=== PATIENT | female | born 1945 | race Caucasian/White ===

== ENCOUNTER 2017-11-26 12:41 | Inpatient (IN) | payer MEDICARE, OTHER, SELFPAY ==
[2017-11-26] VITALS (13 sets, daily range): BP systolic 79–124; BP diastolic 48–60; PULSE 64–82; RESP 14–20; TEMP 36.3–36.9; O2SAT 91–95; BMI 20.9; BMI 19.3
--- NOTE | 2017-11-26 12:52 | EKG12_ITS ---
Test Reason : SOB Blood Pressure : / mmHG Vent. Rate : 077 BPM Atrial Rate : 077 BPM P-R Int : 118 ms QRS Dur : 080 ms QT Int : 364 ms P-R-T Axes : 080 029 085 degrees QTc Int : 411 ms Normal sinus rhythm Right atrial enlargement Borderline ECG Confirmed by DECLAN CEJA, GERBER ([id number]), mapping editor GABRIELLA IRAHETA ([id number] on 11/29/2017 11:21:30 AM Referred By: NATE Confirmed By:GERBER MANRIQUEZ MD
--- NOTE | 2017-11-26 12:52 | RAD_ITS ---
STUDY: X-RAY CHEST REASON FOR EXAM: Female, 72 years old. Cough. One week history of worsening shortness of breath. TECHNIQUE: PA and lateral views of the chest. COMPARISON: Comparison is made with prior study dated February 26, 2010. FINDINGS: EKG electrodes are seen. Since prior study, there is evidence of increased interstitial markings in both lungs. Blunting of both costophrenic angles posteriorly. This may represent superimposed mild CHF on COPD. Normal size heart. Normal mediastinum and marco antonio. Normal visualized pulmonary arteries. There is atherosclerotic calcification of the aortic arch with tortuosity. There are degenerative changes of the visualized thoracic spine. Normal visualized ribs, clavicles, and shoulders. There is evidence of fusion in the lower cervical spine. There is no demonstrated abnormality of the visualized soft tissue structures of the upper abdomen. RAD/Chest PA and Lateral IMPRESSION: Hyperinflation. Increased interstitial markings suggestive of mild degree of CHF. Electronically Signed: Valentin Flores MD at 13:52 EST Tel [phone], Service support ,
[2017-11-26] MEDS: Ipratropium/Albuterol Sulfate 3 ML AMPUL.NEB INHALATION ×2 (12:56→20:16)
[2017-11-26] MEDS: MethylPREDNISolone 125 MG/2 ML Vial IV (13:02)
[2017-11-26 13:21] LABS: Absolute Lymphocyte Count 0.29 X10^3/ul (0.83-4.51); Absolute Neutrophil Count 14.2 X10^3/uL (2.0-7.7); Basophil# 0.01 X10^3/uL; Basophil% 0.1 % (0-1); Eosinophil# 0.01 X10^3/uL; Eosinophils% 0.1 % (0-5); Hematocrit 43.5 % (37-47); Hemoglobin 14.3 g/dl (12.0-15.0); Lymphocyte # 0.29 X10^3/ul (4.0); Mean Corp Hgb Conc 32.9 g/gl (32-36); Mean Corpuscular Hgb 31.2 pg (27.0-32.0); Mean Corpuscular Volume 94.8 fL (81-99); Mean Platelet Vol. 9.7 fl (6.2-12.0); Monocyte# 0.21 X10^3/uL; Monocyte% 1.4 % (0-10); Neutrophil # 14.24 X10^3/uL (2.7-7.7); Neutrophil % 96.1 % (47-70); Platelet Count 319 K/mm3 (150-450); RBC Distribution Width CV 13.8 % (11.6-14.6); RBC Distribution Width SD 46.3 fl (35.1-43.9); Red Blood Count 4.59 M/mm3 (4.2-5.4); White Blood Count 14.8 K/mm3 (4.4-11.0)
[2017-11-26 13:26] LABS: Differential Indicated SCAN CRITERIA MET; POSITIVE COUNT NO; POSITIVE DIFFERENTIAL YES; POSITIVE MORPHOLOGY YES
[2017-11-26 13:29] LABS: Anion Gap 16 (5-15); BUN 27 mg/dL (7-18); BUN/Creat Ratio 20.3 RATIO (10-20); Calcium,Total 8.7 mg/dL (8.5-10.1); Chloride 94 mmol/L (98-107); Creatinine, Serum 1.33 mg/dL (0.55-1.02); EST Glomerular Filtration Rate 42 mL/min (>60); Est Glom Filt Rate - Afr Amer 51 mL/min (>60); Estimated Creatinine Clearance 36.01 ml/min; Glucose 45 mg/dL (70-110); Potassium 3.8 mmol/L (3.5-5.1); Sodium Level 131 mmol/L (136-145)
[2017-11-26 13:46] LABS: Lactic Acid 1.5 mmol/L (0.4-2.0)
[2017-11-26 13:55] LABS: Platelet Estimate ADEQUATE (ADEQ); Platelet Morphology LARGE
[2017-11-26 15:15] LABS: BNP,B-Type NATRIURETIC PEPTIDE 38.3 pg/mL (0-100)
--- NOTE | 2017-11-26 15:56 | ED.DCSUM_ITS ---
- ER Visit Summary Date of Service: 11/26/17 Chief Complaint: Shortness of breath History of Present Illness: The patient is a [address] Peace and Dr. Soto. She reports that she has shortness of breath began 3 days ago and is gradually gotten worse. It is moderate currently and severe at worst. It is worsened by exertion or coughing. She taken albuterol with temporary relief. She is not on oxygen at home. Patient reports that she has had a cough productive of yellow sputum for the past 3 days as well. She denies any fever. She has had chills. She denies any chest pain. She does complain of generalized weakness. Physical Examination: Vitals: Stable. Afebrile. General: Well-nourished and well-developed. Head: Normocephalic atraumatic. Neck: Supple, no lymphadenopathy. No JVD. Nontender. Cardiovascular: Regular rate and rhythm. No murmurs. Respiratory: Mild respiratory distress with mild wheezing bilaterally. Greatly decreased air movement.. Abdominal: Soft, nontender, nondistended, normal bowel sounds. No guarding, rebound, or peritoneal signs. Back: Nontender. Extremities: Nontender, no edema. Skin: Normal color, no rash. Neurologic: Alert and oriented ?3. Cranial nerves II through XII are intact. Normal strength and sensation. Psych: Normal affect. Test Results: EKG is sinus at 77 with no acute changes. Troponin is negative. 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 Lactic acid is 1.5. Chem-7 is marked for sodium 131, chloride 94, BUN 27, creatinine 1.33, and glucose 45. CBC is marked for white count of 14.8 with 96 segmented neutrophils and 2 lymphocytes. Influenza is negative. Chest x-ray shows increased interstitial markings which I feel is likely due to pulmonary fibrosis. It is significantly changed since 2012. Emergency Department Course and Treatment: Was given albuterol Atrovent aerosols. She is given Solu-Medrol IV and placed on oxygen. She feels much improved. However, pulse ox decreased to 86% with ambulation. Treatment Plan: Patient was discussed with Dr. Ambriz. She will be admitted to the hospital for further evaluation and treatment. Disposition: Admitted in improved condition. Impression: 1. COPD exacerbation. 2. Hypoxia. This note was generated with Dragon dictation software. It may contain incorrect words, spelling, and punctuation that were not noted in review of the chart prior to signing ED Disposition - Plan for ED Patient: Chief Complaint: Shortness of Breath Referrals: Matt Peace MD [Primary Care Provider] -
--- NOTE | 2017-11-26 16:16 | PCM.HP.STD ---
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 She was treated as an outpatient with levaquin and steroids which she completed yesterday however became more SOB yesterday. She has been sick with URI like symptoms mostly runny nose and cough with green mucus production no hemoptysis for several days. In the ER she was SOB and hypoxic with ambulation with pulse ox of 86% with only a few steps and initially hypotensive. She has had some diarrhea that started today, no nausea or vomiting. She also has muscle aches and weakness. Denies dysuria. No fever or chills. She does not use O2 at home and is currently not on O2 at rest and comfortable. [] Past Medical History Allergies Sulfa (Sulfonamide Antibiotics) Allergy (Verified 11/26/17 13:07) Unknown Home Medications: Ambulatory Orders Medication Instructions Recorded Albuterol Sulfate [Ventolin Hfa] 1 - 2 puff INHALATION Q4H PRN 11/26/17 Atorvastatin Calcium [Lipitor] 10 mg PO QHS 11/26/17 Diclofenac [Voltaren] 75 mg PO BIDCM 11/26/17 Fluticasone/Vilanterol [Breo 1 each IH DAILY 11/26/17 Ellipta 200-25 Mcg INH] Gabapentin [Neurontin] 600 mg PO QHS 11/26/17 Trazodone HCl 50 mg PO QHS 11/26/17 Umeclidinium [place] [Incruse 1 each IH DAILY 11/26/17 Ellipta] Surgical History: cholecystectomy, hysterectomy, - - spinal surgery Psychiatric History: No pertinent psych hx 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 Denies: Chills, Fever, Weight Change Eyes: Denies: Blurred vision, Double vision, Vision Change HEENT: Reports: Nasal Congestion. Denies: Difficulty Hearing, Difficulty Swallowing, Hard of Hearing, Head Aches, Hearing Changes, Sinus Drainage, Sore Throat, Visual Changes Cardiovascular: Denies: Chest Pain, Chest Pressure, Chest Tightness, Edema, Heaviness, Light Headedness, Palpitations, Syncope Respiratory: Reports: Cough, Shortness of Breath, Shortness of breath at rest, Shortness of breath upon exertion, Sputum production, Wheezing. Denies: Hemoptysis, Pleuritic Pain Gastrointestinal: Reports: Diarrhea. Denies: Abdominal Pain, Nausea, Vomiting Genitourinary: Denies: Dysuria Musculoskeletal: Denies: Joint Pain, Joint Tenderness Skin: Denies: Rash, Wounds Neurological: Denies: Balance problems, Blurred vision, Double vision, Change in Speech, Slurred speech, Confusion, Difficulty swallowing, Focal weakness, Headaches, Incoordination, Numbness, Tingling Psychiatric: Denies: Anxiety, Depression, Homicidal Ideations, Suicidal Ideations Hematologic/ Lymphatic: Denies: Easy Bruising, Easy Bleeding VTE Information - Inpt Only VTE Present on Admission: No VTE Mechan Device Prophylaxis: SCD's VTE Pharm Prophylaxis ordered?: Yes Patient Problems: Active and Suspected Problems COPD exacerbation (Acute) HLD (hyperlipidemia) (Acute) Neurogenic bladder (Acute) Neurogenic bowel (Acute) Hypoxia (Acute) Acute diarrhea (Acute) - Physical Exam General: Alert, Oriented x3, Cooperative HEENT: Atraumatic, PERRLA, EOMI, Normocephalic Neck: Supple, No JVD, Negative Carotid Bruits Lungs: Diminished, Wheezes - faint end expiratory wheeze on forced expiration Cardiovascular: Regular rate, No murmurs Abdomen: Bowel Sounds Present, Soft, Non Tender Extremities: No edema, Capillary Refill Less than 3 Seconds Skin: No rashes, No breakdown Musculoskeletal: No Tenderness to Palpation of Joints or Extremities Neurological: Cranial nerves II-XII grossly intact Psych/Mental Status: Normal Affect, Appropriate, Alert and oriented to time, place, person, mood and affect Vital Signs Temp Pulse Resp BP Pulse Ox 97.5 F L 78 14 124/52 H 94 01/29/18 12:43 11/26/17 16:02 11/26/17 16:02 11/26/17 15:00 11/26/17 16:02 Oxygen Flow Rate 2 Oxygen Delivery Method Nasal Cannula Assessment/Plan Active and Suspected Problems COPD exacerbation (Acute) HLD (hyperlipidemia) (Acute) Neurogenic bladder (Acute) Neurogenic bowel (Acute) Hypoxia (Acute) Acute diarrhea (Acute) 1. Acute COPD exacerbation 2/2 suspected acute viral syndrome - Pt has hx of COPD and presents with dyspnea worse with exertion and exertional hypoxia having recently completed steroids and levaquin as an outpatient with viral like symptoms including nasal congestion, cough with green mucus production, wheezing, myalgias, and diarrhea. Also on GABRIELA, LABA, nebulizer, and ICS maintenance therapy. Influenza screen is negative. CXR with hyperexpansion and markings suggesting mild CHF - doubt she has CHF as she has no overt signs of fluid overload and a negative BNP. Lungs have faint end expiratory wheezing. Will begin solumedrol, duonebs, incentive spirometer, robitussin w/ mucinex, check viral panel, and start IV azithromycin. Will check sputum culture as well. She was hypotensive on presentation but this improved with IV fluid administration and lactate was negative. Also troponin neg. EKG with enlarged atrium. Blood cx drawn in ER pending. She is a [facility] pulmonary pt - Dr. Crabtree. 2. Acute hypoxia - with exertion only, stable at rest off O2. Will need walking pulse ox prior to DC 3. Hypotension resolved with IV fluids 4. Elevated Creatinine - baseline unknown - will continue IV NS and trend. Hold voltaren. 5. Neurogenic bowel and bladder 2/2 prior spinal surgery. Continue neurontin. 6. Leukocytosis - likely 2/2 being on outpatient steroids until yesterday. 7. Mild hyponatremia - unclear etiology. DVT ppx: heparin/SCDs DC planning: may need homegoing O2 This patient was seen by Neymar Crockett PA-C under the supervision of Doctor Pb. <Vijay Ambriz - Last Filed: 11/26/17 18:15> Problem List (1) Acute diarrhea Status: Acute History of Present Illness Seen and examined Patient came to ER with severe shortness of breath, pulse ox 86% on room air and wheezing. She completed 7 days of Levaquin and prednisone by her awning craftsman. Currently she complained of diarrhea, liquidy stool but no blood. No vomiting/abdominal cramps. Past Medical History Allergies Sulfa (Sulfonamide Antibiotics) Allergy (Verified 11/26/17 17:47) FACE GETS RED AND ITCHY - *Family History Maternal History Items: Heart Disease - Physical Exam Neck: Negative Carotid Bruits Lungs: Diminished, Wheezes Cardiovascular: Regular rate, Normal S1, Normal S2, No murmurs, - - EKG normal sinus rhythm at 77 bpm Abdomen: Bowel Sounds Present, Soft, Non Tender, Hyperactive Bowel Sounds Musculoskeletal: Arthritic Changes, Muscle Wasting Neurological: Neuro grossly intact Vital Signs Temp Pulse Resp BP Pulse Ox 97.4 F L 75 20 H 123/48 H 95 11/26/17 18:06 11/26/17 18:06 11/26/17 18:06 11/26/17 18:06 11/26/17 18:06 Oxygen Flow Rate 2 Oxygen Delivery Method Nasal Cannula Weight: 119 lb 14.4 oz Body Mass Index (BMI) 19.3 Assessment/Plan This patient was seen in conjunction with Neymar BROWNLEE. I have independently interviewed and examined the patient and reviewed pertinent history, examination findings, laboratory and plan of management. I have reviewed the note and agree with the documented findings with the few additional points. In brief, patient is admitted for COPD exacerbation most rarely due to acute viral syndrome: Flu test was negative. On COPD protocol. As patient recently completed 7 days of IV Levaquin and having diarrhea, high risk of C. difficile: Stool for C. difficile, WBC count and occult blood ordered. And discontinue IV azithromycin. I have discussed my assessment with Neymar BROWNLEE and orders have been reviewed. Code Visit Inpatient E&M: 38473 Init Hosp L3
--- NOTE | 2017-11-26 16:37 | HP.PCM_ITS ---
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 She was treated as an outpatient with levaquin and steroids which she completed yesterday however became more SOB yesterday. She has been sick with URI like symptoms mostly runny nose and cough with green mucus production no hemoptysis for several days. In the ER she was SOB and hypoxic with ambulation with pulse ox of 86% with only a few steps and initially hypotensive. She has had some diarrhea that started today, no nausea or vomiting. She also has muscle aches and weakness. Denies dysuria. No fever or chills. She does not use O2 at home and is currently not on O2 at rest and comfortable. [] Past Medical History Allergies Sulfa (Sulfonamide Antibiotics) Allergy (Verified 11/26/17 13:07) Unknown Home Medications: Ambulatory Orders Medication Instructions Recorded Albuterol Sulfate [Ventolin Hfa] 1 - 2 puff INHALATION Q4H PRN 11/26/17 Atorvastatin Calcium [Lipitor] 10 mg PO QHS 11/26/17 Diclofenac [Voltaren] 75 mg PO BIDCM 11/26/17 Fluticasone/Vilanterol [Breo 1 each IH DAILY 11/26/17 Ellipta 200-25 Mcg INH] Gabapentin [Neurontin] 600 mg PO QHS 11/26/17 Trazodone HCl 50 mg PO QHS 11/26/17 Umeclidinium [place] [Incruse 1 each IH DAILY 11/26/17 Ellipta] Surgical History: cholecystectomy, hysterectomy, - - spinal surgery Psychiatric History: No pertinent psych hx 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 Denies: Chills, Fever, Weight Change Eyes: Denies: Blurred vision, Double vision, Vision Change HEENT: Reports: Nasal Congestion. Denies: Difficulty Hearing, Difficulty Swallowing, Hard of Hearing, Head Aches, Hearing Changes, Sinus Drainage, Sore Throat, Visual Changes Cardiovascular: Denies: Chest Pain, Chest Pressure, Chest Tightness, Edema, Heaviness, Light Headedness, Palpitations, Syncope Respiratory: Reports: Cough, Shortness of Breath, Shortness of breath at rest, Shortness of breath upon exertion, Sputum production, Wheezing. Denies: Hemoptysis, Pleuritic Pain Gastrointestinal: Reports: Diarrhea. Denies: Abdominal Pain, Nausea, Vomiting Genitourinary: Denies: Dysuria Musculoskeletal: Denies: Joint Pain, Joint Tenderness Skin: Denies: Rash, Wounds Neurological: Denies: Balance problems, Blurred vision, Double vision, Change in Speech, Slurred speech, Confusion, Difficulty swallowing, Focal weakness, Headaches, Incoordination, Numbness, Tingling Psychiatric: Denies: Anxiety, Depression, Homicidal Ideations, Suicidal Ideations Hematologic/ Lymphatic: Denies: Easy Bruising, Easy Bleeding VTE Information - Inpt Only VTE Present on Admission: No VTE Mechan Device Prophylaxis: SCD's VTE Pharm Prophylaxis ordered?: Yes Patient Problems: Active and Suspected Problems COPD exacerbation (Acute) HLD (hyperlipidemia) (Acute) Neurogenic bladder (Acute) Neurogenic bowel (Acute) Hypoxia (Acute) Acute diarrhea (Acute) - Physical Exam General: Alert, Oriented x3, Cooperative HEENT: Atraumatic, PERRLA, EOMI, Normocephalic Neck: Supple, No JVD, Negative Carotid Bruits Lungs: Diminished, Wheezes - faint end expiratory wheeze on forced expiration Cardiovascular: Regular rate, No murmurs Abdomen: Bowel Sounds Present, Soft, Non Tender Extremities: No edema, Capillary Refill Less than 3 Seconds Skin: No rashes, No breakdown Musculoskeletal: No Tenderness to Palpation of Joints or Extremities Neurological: Cranial nerves II-XII grossly intact Psych/Mental Status: Normal Affect, Appropriate, Alert and oriented to time, place, person, mood and affect Vital Signs Temp Pulse Resp BP Pulse Ox 97.5 F L 78 14 124/52 H 94 01/29/18 12:43 11/26/17 16:02 11/26/17 16:02 11/26/17 15:00 11/26/17 16:02 Oxygen Flow Rate 2 Oxygen Delivery Method Nasal Cannula Assessment/Plan Active and Suspected Problems COPD exacerbation (Acute) HLD (hyperlipidemia) (Acute) Neurogenic bladder (Acute) Neurogenic bowel (Acute) Hypoxia (Acute) Acute diarrhea (Acute) 1. Acute COPD exacerbation 2/2 suspected acute viral syndrome - Pt has hx of COPD and presents with dyspnea worse with exertion and exertional hypoxia having recently completed steroids and levaquin as an outpatient with viral like symptoms including nasal congestion, cough with green mucus production, wheezing, myalgias, and diarrhea. Also on GABRIELA, LABA, nebulizer, and ICS maintenance therapy. Influenza screen is negative. CXR with hyperexpansion and markings suggesting mild CHF - doubt she has CHF as she has no overt signs of fluid overload and a negative BNP. Lungs have faint end expiratory wheezing. Will begin solumedrol, duonebs, incentive spirometer, robitussin w/ mucinex, check viral panel, and start IV azithromycin. Will check sputum culture as well. She was hypotensive on presentation but this improved with IV fluid administration and lactate was negative. Also troponin neg. EKG with enlarged atrium. Blood cx drawn in ER pending. She is a [facility] pulmonary pt - Dr. Crabtree. 2. Acute hypoxia - with exertion only, stable at rest off O2. Will need walking pulse ox prior to DC 3. Hypotension resolved with IV fluids 4. Elevated Creatinine - baseline unknown - will continue IV NS and trend. Hold voltaren. 5. Neurogenic bowel and bladder 2/2 prior spinal surgery. Continue neurontin. 6. Leukocytosis - likely 2/2 being on outpatient steroids until yesterday. 7. Mild hyponatremia - unclear etiology. DVT ppx: heparin/SCDs DC planning: may need homegoing O2 This patient was seen by Neymar Crockett PA-C under the supervision of Doctor Pb. <Vijay Ambriz - Last Filed: 11/26/17 18:15> Problem List (1) Acute diarrhea Status: Acute History of Present Illness Seen and examined Patient came to ER with severe shortness of breath, pulse ox 86% on room air and wheezing. 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 Currently she complained of diarrhea, liquidy stool but no blood. No vomiting/abdominal cramps. Past Medical History Allergies Sulfa (Sulfonamide Antibiotics) Allergy (Verified 11/26/17 17:47) FACE GETS RED AND ITCHY - *Family History Maternal History Items: Heart Disease - Physical Exam Neck: Negative Carotid Bruits Lungs: Diminished, Wheezes Cardiovascular: Regular rate, Normal S1, Normal S2, No murmurs, - - EKG normal sinus rhythm at 77 bpm Abdomen: Bowel Sounds Present, Soft, Non Tender, Hyperactive Bowel Sounds Musculoskeletal: Arthritic Changes, Muscle Wasting Neurological: Neuro grossly intact Vital Signs Temp Pulse Resp BP Pulse Ox 97.4 F L 75 20 H 123/48 H 95 11/26/17 18:06 11/26/17 18:06 11/26/17 18:06 11/26/17 18:06 11/26/17 18:06 Oxygen Flow Rate 2 Oxygen Delivery Method Nasal Cannula Weight: 119 lb 14.4 oz Body Mass Index (BMI) 19.3 Assessment/Plan This patient was seen in conjunction with Neymar BROWNLEE. I have independently interviewed and examined the patient and reviewed pertinent history, examination findings, laboratory and plan of management. I have reviewed the note and agree with the documented findings with the few additional points. In brief, patient is admitted for COPD exacerbation most rarely due to acute viral syndrome: Flu test was negative. On COPD protocol. As patient recently completed 7 days of IV Levaquin and having diarrhea, high risk of C. difficile: Stool for C. difficile, WBC count and occult blood ordered. And discontinue IV azithromycin. I have discussed my assessment with Neymar BROWNLEE and orders have been reviewed. Code Visit Inpatient E&M: 23066 Init Hosp L3
[2017-11-26] MEDS: 0.9% Normal Saline 1,000 ML 100 ML IV (17:41)
[2017-11-26] MEDS: traZODone 50 MG Tablet PO (22:02)
[2017-11-26] MEDS: Gabapentin 300 MG Capsule 600 MG PO (22:02)
[2017-11-26] MEDS: Loperamide 2 MG Capsule PO (22:02)
[2017-11-26] MEDS: Heparin Injection 5,000 UNITS/ML Syringe 5000 UNITS SC (22:03)
[2017-11-27] VITALS (15 sets, daily range): BP systolic 119–150; BP diastolic 36–68; PULSE 62–94; RESP 12–20; TEMP 36.4–36.9; O2SAT 86–97
[2017-11-27] MEDS: 0.9% NaCl Peripheral Flush Adult/Peds IV (04:59)
[2017-11-27] MEDS: 0.9% Normal Saline 1,000 ML 100 ML IV (04:59)
[2017-11-27] MEDS: Ipratropium/Albuterol Sulfate 3 ML AMPUL.NEB INHALATION ×4 (07:19→19:41)
[2017-11-27 07:44] LABS: Absolute Lymphocyte Count 0.15 X10^3/ul (0.83-4.51); Absolute Neutrophil Count 10.9 X10^3/uL (2.0-7.7); Basophil# 0.01 X10^3/uL; Basophil% 0.1 % (0-1); Hematocrit 33.8 % (37-47); Hemoglobin 11.2 g/dl (12.0-15.0); Lymphocyte # 0.15 X10^3/ul (4.0); Lymphocyte % 1.3 % (19-41); Mean Corp Hgb Conc 33.1 g/gl (32-36); Mean Corpuscular Hgb 30.8 pg (27.0-32.0); Mean Corpuscular Volume 92.9 fL (81-99); Mean Platelet Vol. 9.7 fl (6.2-12.0); Monocyte% 1.8 % (0-10); Neutrophil # 10.92 X10^3/uL (2.7-7.7); Neutrophil % 96.5 % (47-70); Platelet Count 241 K/mm3 (150-450); RBC Distribution Width CV 13.2 % (11.6-14.6); RBC Distribution Width SD 43.9 fl (35.1-43.9); Red Blood Count 3.64 M/mm3 (4.2-5.4); White Blood Count 11.3 K/mm3 (4.4-11.0)
[2017-11-27 07:48] LABS: POSITIVE COUNT NO; POSITIVE DIFFERENTIAL YES; POSITIVE MORPHOLOGY NO
[2017-11-27 07:49] LABS: Differential Indicated SCAN CRITERIA MET
[2017-11-27 07:57] LABS: Anion Gap 8 (5-15); BUN 18 mg/dL (7-18); BUN/Creat Ratio 22.9 RATIO (10-20); Calcium,Total 8.2 mg/dL (8.5-10.1); Chloride 103 mmol/L (98-107); Creatinine, Serum 0.79 mg/dL (0.55-1.02); EST Glomerular Filtration Rate 77 mL/min (>60); Est Glom Filt Rate - Afr Amer 93 mL/min (>60); Glucose 150 mg/dL (70-110); Potassium 4.1 mmol/L (3.5-5.1); Sodium Level 133 mmol/L (136-145)
[2017-11-27 08:17] LABS: Platelet Estimate ADEQUATE (ADEQ); Platelet Morphology LARGE; Red Cell Morphology NORM C+C NORMAL (NORM C&C)
[2017-11-27] MEDS: Atorvastatin Calcium 10 MG Tablet PO (09:39)
[2017-11-27] MEDS: Heparin Injection 5,000 UNITS/ML Syringe 5000 UNITS SC ×2 (09:39→21:50)
[2017-11-27 11:59] LABS: Hemoglobin A1c 5.7 % (4.2-6.3)
--- NOTE | 2017-11-27 13:46 | CASEMGMT ---
BHUMI PEDRO Assessment complete. See assessment link. Disposition Plan: Patient would like to return home. Patient lives alone in a four story home. Patient does not currently use home oxygen. Patient states she is in the process of completing POA/Living Will paperwork. Demographics, care providers, and pharmacy verified. Pulmonology: Dr. Stockton PCP: Kobi TRIPATHI CM will continue to follow for discharge needs.
--- NOTE | 2017-11-27 14:03 | PCM.PN.HOSP ---
Patient Problems: Active and Suspected Problems COPD exacerbation (Acute) HLD (hyperlipidemia) (Acute) Neurogenic bladder (Acute) Neurogenic bowel (Acute) Hypoxia (Acute) Acute diarrhea (Acute) Subjective: Patient overnight improved with initial therapies and treatments with no further diarrhea, no nausea or emesis, improved dyspnea and decreased wheezing. Stressed current ongoing evaluations with now confirmed positive influenza A status via respiratory viral PCR panel as initial rapid was unremarkable. Patient does note now that a grandchild was recently diagnosed with influenza. Patient denies fevers, chills, nausea, emesis, abdominal pain, chest pain or worsened dyspnea. Objective: Physical Examination: General: awake, alert, oriented x 3 and cooperative, seated upright in the bed in no apparent distress, fatigued appearance. Skin: normal color, turgor, no icterus, cyanosis. HEENT: AT/NC, EOMI, PERRLA, improved MM. Lungs: Diminished BS diffusely, > bases, mildly coarse, mild effort, no current wheezing noted. Heart: Regular rate and rhythm; no gallop, rub audible. Abdomen: soft, NTTP, ND, normal BS. Extremities: no cyanosis, clubbing, or edema. Neurological: patient awake, alert, oriented x 3; cognitive function intact; pupils equally reactive to light and accomodation; cranial nerves II-XII grossly normal, moving all 4 extremities, no focal deficits, strength moderately to severely globally decreased secondary to acute presentation. Psychiatric: affect appears fatigued, no acute evidence of depressive or anxiety feelings. Vitals/I&O's: Vital Signs Temp Pulse Resp BP Pulse Ox 98.3 F 85 20 H 119/36 L 96 11/27/17 09:36 11/27/17 11:18 11/27/17 11:18 11/27/17 09:36 11/27/17 10:04 Oxygen Flow Rate [AMBULATION 2 with Oxygen] Oxygen Flow Rate 2 Oxygen Delivery Method Room Air Weight: 119 lb 14.41 oz Body Mass Index (BMI) 19.3 Intake and Output for Last 24 Hours 11/25/17 11/26/17 11/27/17 23:59 23:59 23:59 Intake Total 2292 / 2292 Output Total 1050 / 1050 Balance 1242 / 1242 Microbiology Past 72 Hours 11/26/17 20:15 Mucosa - Nose Respiratory Panel (PCR) - Final Influenza A (Subtype H3) 11/26/17 18:20 Stool C. difficile DNA Amplification - Final 11/26/17 18:20 Stool Stool Occult Blood (DONALD) - Final 11/26/17 18:20 Stool Stool Lactoferrin - Final Laboratory Results 11/27/17 07:12: WBC 11.3 H, RBC 3.64 L, Hgb 11.2 L, Hct 33.8 L, MCV 92.9, MCH 30.8, MCHC 33.1, RDW 13.2, RDW Differential 43.9, Plt Count 241, MPV 9.7, Immature Gran % (Auto) 0.300, Neut % (Auto) 96.5 H, Lymph % (Auto) 1.3 L, [place] % (Auto) 1.8, Eos % (Auto) 0.0, Baso % (Auto) 0.1, Absolute Neuts (auto) 10.9 H, Absolute Lymphs (auto) 0.15 L, Total Counted Not Reportable, Differential Comment , Platelet Estimate ADEQUATE, Plt Morphology Comment LARGE, RBC Morphology NORM C+C 11/27/17 07:12: Sodium 133 L, Potassium 4.1, Chloride 103, Carbon Dioxide 22.0, Anion Gap 8, BUN 18, Creatinine 0.79, Estim Creat Clear Calc 44.30, Est GFR (MDRD) Af Amer 93, Est GFR (MDRD) Non-Af 77, BUN/Creatinine Ratio 22.9 H, Glucose 150 H, Calcium 8.2 L 11/27/17 07:12: Magnesium 2.0 11/27/17 07:12: Hemoglobin A1c 5.7 Current Medications Acetaminophen (Tylenol) 650 mg PO Q6H PRN PRN PRN Reason: fever, pain Albuterol Sulfate (Ventolin Aerosols) 2.5 mg INHALATION Q2H PRN PRN PRN Reason: SOB &/OR WHEEZING Albuterol/Ipratropium (Duoneb) 3 ml INHALATION Q4HWA.RT [facility] Last Admin: 11/27/17 11:18 Dose: 3 ml Atorvastatin Calcium (Lipitor) 10 mg PO DAILY [facility] Last Admin: 11/27/17 09:39 Dose: 10 mg Gabapentin (Neurontin) 600 mg PO QHS [facility] Last Admin: 11/26/17 22:02 Dose: 600 mg Guaifenesin (Robitussin Dm) 10 ml PO Q6H PRN PRN PRN Reason: COUGH Heparin Sodium (Porcine) () 5,000 units SC BID [facility] Last Admin: 11/27/17 09:39 Dose: 5,000 units Hydralazine HCl (Apresoline) 10 mg IV Q4H PRN PRN PRN Reason: SBP > 160 Sodium Chloride () 250 mls @ 15 mls/hr IV .[id number] PRN PRN Reason: SALINE FLUSH Sodium Chloride () 1,000 mls @ 75 mls/hr IV .[id number] [facility] Last Admin: 11/27/17 11:53 Dose: Not Given Lactobacillus Acidophilus (Acidophilus) 1 tablet PO TID [facility] Last Admin: 11/27/17 13:13 Dose: 1 tablet Loperamide HCl (Imodium) 2 mg PO Q4H PRN PRN PRN Reason: LOOSE STOOLS Last Admin: 11/26/17 22:02 Dose: 2 mg Methylprednisolone (Solu-Medrol) 40 mg IV Q8 [facility] Last Admin: 11/27/17 13:13 Dose: 40 mg Morphine Sulfate (Morphine) 1 - 2 mg IV Q4H PRN PRN PRN Reason: PAIN Nitroglycerin (Nitrostat) 0.4 mg SUBLINGUAL Q5M PRN PRN Reason: Angina pain Nutritional Formula (Lactose Free) (Ensure Enlive) 120 ml PO 4X/DAY [facility] Last Admin: 11/27/17 13:13 Dose: Not Given Ondansetron HCl (Zofran) 4 mg IV Q8H PRN PRN PRN Reason: NAUSEA/VOMITING Sodium Chloride () 5 - 30 ml IV UD PRN PRN Reason: SALINE FLUSH Last Admin: 11/27/17 04:59 Dose: 10 ml Trazodone HCl (Desyrel) 50 mg PO QHS [facility] Last Admin: 11/26/17 22:02 Dose: 50 mg Assessment/Plan Active and Suspected Problems COPD exacerbation (Acute) HLD (hyperlipidemia) (Acute) Neurogenic bladder (Acute) Neurogenic bowel (Acute) Hypoxia (Acute) Acute diarrhea (Acute) The patient is a 72 y/o F w/ PMHx: Chronic COPD following w/ CC Pulmonary, Hx Neurogenic Bladder and Bowel following spinal surgery remotely, HLD, Former Tobacco use who presents to the [facility] ED on 11/26/17 with history of recent ongoing shortness of breath, worse with exertion which was treated outpatient with Levaquin and steroids completed the day prior to presentation however she continued to have rhinorrhea, productive cough for several days as well as onset loose stool arthralgia and myalgias for now > 48 hours. (1) General Malaise, Cough, Fever, General Debility secondary to Influenza A Viral Syndrome w/ Acute on Chronic COPD Exacerbation: CXR in the ED w/ chronic changes. Admission CBC w/ WBC 14.8 with L shift-->11/27/17 CBC w/ WBC 11.3, Hgb 11.2, Plts 241 with improved shift. Influenza A positive. Deferred Tamiflu per discussion with patient given onset increased sxs now > 48 hours prior. Admitted and maintained on PCU, maintain on oxygen with wean as tolerated to room air, continue ATC duonebs, PRN albuterol, IV solumedrol-->prednisone therapy, HOB, IS parameters w/ pending Bld cx x 2 from ED. Expect given improvement possible discharge to home in AM. (2) Acute kidney injury and Hyponatremia, Hypovolemic: Secondary to #1. Admission BUN/Cr 27/1.33, prior baseline creatinine noted to be normal. Hydrated, held nephrotoxic medications and repeat chemistry 11/27/17 BUN/Cr 18/0.79, resolved, continue gentle hydration, encourage oral intake. (3) Hyperglycemia: glucose 150, on steroids, HgBA1c obtained to be cautious, 5.7%. (4) Hyperlipidemia: Continue home statin regimen. (5) Chronic neurogenic bladder and bowel s/p spinal surgery: Continue home Neurontin, PRN loperamide. (6) Former Tobacco use: Encouraged continued cessation. (7) DVT Prophylaxis: SCDs, heparin. Code Visit Inpatient E&M: 06785 Subs Hosp L2
--- NOTE | 2017-11-27 14:13 | PN_ITS ---
Patient Problems: Active and Suspected Problems COPD exacerbation (Acute) HLD (hyperlipidemia) (Acute) Neurogenic bladder (Acute) Neurogenic bowel (Acute) Hypoxia (Acute) Acute diarrhea (Acute) Subjective: Patient overnight improved with initial therapies and treatments with no further diarrhea, no nausea or emesis, improved dyspnea and decreased wheezing. Stressed current ongoing evaluations with now confirmed positive influenza A status via respiratory viral PCR panel as initial rapid was unremarkable. Patient does note now that a grandchild was recently diagnosed with influenza. Patient denies fevers, chills, nausea, emesis, abdominal pain, chest pain or worsened dyspnea. Objective: Physical Examination: General: awake, alert, oriented x 3 and cooperative, seated upright in the bed in no apparent distress, fatigued appearance. Skin: normal color, turgor, no icterus, cyanosis. HEENT: AT/NC, EOMI, PERRLA, improved MM. Lungs: Diminished BS diffusely, > bases, mildly coarse, mild effort, no current wheezing noted. Heart: Regular rate and rhythm; no gallop, rub audible. Abdomen: soft, NTTP, ND, normal BS. Extremities: no cyanosis, clubbing, or edema. Neurological: patient awake, alert, oriented x 3; cognitive function intact; pupils equally reactive to light and accomodation; cranial nerves II-XII grossly normal, moving all 4 extremities, no focal deficits, strength moderately to severely globally decreased secondary to acute presentation. Psychiatric: affect appears fatigued, no acute evidence of depressive or anxiety feelings. Vitals/I&O's: Vital Signs Temp Pulse Resp BP Pulse Ox 98.3 F 85 20 H 119/36 L 96 11/27/17 09:36 11/27/17 11:18 11/27/17 11:18 11/27/17 09:36 11/27/17 10:04 Oxygen Flow Rate [AMBULATION 2 with Oxygen] Oxygen Flow Rate 2 Oxygen Delivery Method Room Air Weight: 119 lb 14.41 oz Body Mass Index (BMI) 19.3 Intake and Output for Last 24 Hours 11/25/17 11/26/17 11/27/17 23:59 23:59 23:59 Intake Total 2292 / 2292 Output Total 1050 / 1050 Balance 1242 / 1242 Microbiology Past 72 Hours 11/26/17 20:15 Mucosa - Nose Respiratory Panel (PCR) - Final Influenza A (Subtype H3) 11/26/17 18:20 Stool C. difficile DNA Amplification - Final 11/26/17 18:20 Stool Stool Occult Blood (DONALD) - Final 11/26/17 18:20 Stool Stool Lactoferrin - Final Laboratory Results 11/27/17 07:12: WBC 11.3 H, RBC 3.64 L, Hgb 11.2 L, Hct 33.8 L, MCV 92.9, MCH 30.8, MCHC 33.1, RDW 13.2, RDW Differential 43.9, Plt Count 241, MPV 9.7, Immature Gran % (Auto) 0.300, Neut % (Auto) 96.5 H, Lymph % (Auto) 1.3 L, [place] % (Auto) 1.8, Eos % (Auto) 0.0, Baso % (Auto) 0.1, Absolute Neuts (auto) 10.9 H , Absolute Lymphs (auto) 0.15 L, Total Counted Not Reportable, Differential Comment , Platelet Estimate ADEQUATE, Plt Morphology Comment LARGE, RBC Morphology NORM C+C 11/27/17 07:12: Sodium 133 L, Potassium 4.1, Chloride 103, Carbon Dioxide 22.0, Anion Gap 8, BUN 18, Creatinine 0.79, Estim Creat Clear Calc 44.30, Est GFR ( MDRD) Af Amer 93, Est GFR (MDRD) Non-Af 77, BUN/Creatinine Ratio 22.9 H, Glucose 150 H, Calcium 8.2 L 11/27/17 07:12: Magnesium 2.0 11/27/17 07:12: Hemoglobin A1c 5.7 Current Medications Acetaminophen (Tylenol) 650 mg PO Q6H PRN PRN PRN Reason: fever, pain Albuterol Sulfate (Ventolin Aerosols) 2.5 mg INHALATION Q2H PRN PRN PRN Reason: SOB &/OR WHEEZING Albuterol/Ipratropium (Duoneb) 3 ml INHALATION Q4HWA.RT [facility] Last Admin: 11/27/17 11:18 Dose: 3 ml Atorvastatin Calcium (Lipitor) 10 mg PO DAILY [facility] Last Admin: 11/27/17 09:39 Dose: 10 mg Gabapentin (Neurontin) 600 mg PO QHS [facility] Last Admin: 11/26/17 22:02 Dose: 600 mg Guaifenesin (Robitussin Dm) 10 ml PO Q6H PRN PRN PRN Reason: COUGH Heparin Sodium (Porcine) () 5,000 units SC BID [facility] Last Admin: 11/27/17 09:39 Dose: 5,000 units Hydralazine HCl (Apresoline) 10 mg IV Q4H PRN PRN PRN Reason: SBP > 160 Sodium Chloride () 250 mls @ 15 mls/hr IV .[id number] PRN PRN Reason: SALINE FLUSH Sodium Chloride () 1,000 mls @ 75 mls/hr IV .[id number] [facility] Last Admin: 11/27/17 11:53 Dose: Not Given Lactobacillus Acidophilus (Acidophilus) 1 tablet PO TID [facility] Last Admin: 11/27/17 13:13 Dose: 1 tablet Loperamide HCl (Imodium) 2 mg PO Q4H PRN PRN PRN Reason: LOOSE STOOLS Last Admin: 11/26/17 22:02 Dose: 2 mg Methylprednisolone (Solu-Medrol) 40 mg IV Q8 [facility] Last Admin: 11/27/17 13:13 Dose: 40 mg Morphine Sulfate (Morphine) 1 - 2 mg IV Q4H PRN PRN PRN Reason: PAIN Nitroglycerin (Nitrostat) 0.4 mg SUBLINGUAL Q5M PRN PRN Reason: Angina pain Nutritional Formula (Lactose Free) (Ensure Enlive) 120 ml PO 4X/DAY [facility] Last Admin: 11/27/17 13:13 Dose: Not Given Ondansetron HCl (Zofran) 4 mg IV Q8H PRN PRN PRN Reason: NAUSEA/VOMITING Sodium Chloride () 5 - 30 ml IV UD PRN PRN Reason: SALINE FLUSH Last Admin: 11/27/17 04:59 Dose: 10 ml Trazodone HCl (Desyrel) 50 mg PO QHS [facility] Last Admin: 11/26/17 22:02 Dose: 50 mg Assessment/Plan Active and Suspected Problems COPD exacerbation (Acute) HLD (hyperlipidemia) (Acute) Neurogenic bladder (Acute) Neurogenic bowel (Acute) Hypoxia (Acute) Acute diarrhea (Acute) The patient is a 72 y/o F w/ PMHx: Chronic COPD following w/ CC Pulmonary, Hx Neurogenic Bladder and Bowel following spinal surgery remotely, HLD, Former Tobacco use who presents to the [facility] ED on 11/26/17 with history of recent ongoing shortness of breath, worse with exertion which was treated outpatient with Levaquin and steroids completed the day prior to presentation however she continued to have rhinorrhea, productive cough for several days as well as onset loose stool arthralgia and myalgias for now > 48 hours. (1) General Malaise, Cough, Fever, General Debility secondary to Influenza A Viral Syndrome w/ Acute on Chronic COPD Exacerbation: CXR in the ED w/ chronic changes. Admission CBC w/ WBC 14.8 with L shift-->11/27/17 CBC w/ WBC 11.3, Hgb 11.2, Plts 241 with improved shift. Influenza A positive. Deferred Tamiflu per discussion with patient given onset increased sxs now > 48 hours prior. Admitted and maintained on PCU, maintain on oxygen with wean as tolerated to room air, continue ATC duonebs, PRN albuterol, IV solumedrol-->prednisone therapy, HOB, IS parameters w/ pending Bld cx x 2 from ED. Expect given improvement possible discharge to home in AM. (2) Acute kidney injury and Hyponatremia, Hypovolemic: Secondary to #1. Admission BUN/Cr 27/1.33, prior baseline creatinine noted to be normal. Hydrated , held nephrotoxic medications and repeat chemistry 11/27/17 BUN/Cr 18/0.79, resolved, continue gentle hydration, encourage oral intake. (3) Hyperglycemia: glucose 150, on steroids, HgBA1c obtained to be cautious, 5.7 %. (4) Hyperlipidemia: Continue home statin regimen. (5) Chronic neurogenic bladder and bowel s/p spinal surgery: Continue home Neurontin, PRN loperamide. (6) Former Tobacco use: Encouraged continued cessation. (7) DVT Prophylaxis: SCDs, heparin. Code Visit Inpatient E&M: 88839 Subs Hosp L2
[2017-11-27] MEDS: 0.9% Normal Saline 1,000 ML 75 ML IV (15:39)
[2017-11-27] MEDS: Gabapentin 300 MG Capsule 600 MG PO (21:49)
[2017-11-27] MEDS: traZODone 50 MG Tablet PO (21:50)
[2017-11-27] MEDS: Acetaminophen 325 MG Tablet 650 MG PO (21:50)
[2017-11-28] VITALS (8 sets, daily range): BP systolic 152; BP diastolic 42–51; PULSE 52–91; RESP 16–20; TEMP 37.1; O2SAT 86–98
[2017-11-28] MEDS: 0.9% Normal Saline 1,000 ML 75 ML IV (02:13)
[2017-11-28 06:34] LABS: Absolute Lymphocyte Count 0.23 X10^3/ul (0.83-4.51); Absolute Neutrophil Count 10.3 X10^3/uL (2.0-7.7); Differential Indicated SCAN CRITERIA MET; Hematocrit 30.9 % (37-47); Hemoglobin 10.4 g/dl (12.0-15.0); Lymphocyte # 0.23 X10^3/ul (4.0); Lymphocyte % 2.1 % (19-41); Mean Corp Hgb Conc 33.7 g/gl (32-36); Mean Corpuscular Hgb 31.3 pg (27.0-32.0); Mean Corpuscular Volume 93.1 fL (81-99); Mean Platelet Vol. 9.7 fl (6.2-12.0); Monocyte# 0.37 X10^3/uL; Monocyte% 3.4 % (0-10); Neutrophil # 10.25 X10^3/uL (2.7-7.7); Neutrophil % 94.2 % (47-70); POSITIVE COUNT NO; POSITIVE DIFFERENTIAL YES; POSITIVE MORPHOLOGY NO; Platelet Count 251 K/mm3 (150-450); RBC Distribution Width CV 13.3 % (11.6-14.6); Red Blood Count 3.32 M/mm3 (4.2-5.4); White Blood Count 10.9 K/mm3 (4.4-11.0)
[2017-11-28] MEDS: Ipratropium/Albuterol Sulfate 3 ML AMPUL.NEB INHALATION ×2 (06:40→11:11)
[2017-11-28 06:46] LABS: Anion Gap 9 (5-15); BUN 16 mg/dL (7-18); BUN/Creat Ratio 20.3 RATIO (10-20); Calcium,Total 8.2 mg/dL (8.5-10.1); Chloride 107 mmol/L (98-107); Creatinine, Serum 0.79 mg/dL (0.55-1.02); EST Glomerular Filtration Rate 76 mL/min (>60); Est Glom Filt Rate - Afr Amer 92 mL/min (>60); Glucose 138 mg/dL (70-110); Potassium 3.7 mmol/L (3.5-5.1); Sodium Level 137 mmol/L (136-145)
[2017-11-28] MEDS: Heparin Injection 5,000 UNITS/ML Syringe 5000 UNITS SC (09:32)
[2017-11-28] MEDS: Atorvastatin Calcium 10 MG Tablet PO (09:32)
--- NOTE | 2017-11-28 10:14 | PCM.DC ---
- Discharge Diagnoses Current Active Problems: Current Active and Chronic Problems COPD exacerbation (Acute) HLD (hyperlipidemia) (Acute) Neurogenic bladder (Acute) Neurogenic bowel (Acute) Hypoxia (Acute) Acute diarrhea (Acute) (1) General Malaise, Cough, Fever, General Debility secondary to Influenza A Viral Syndrome w/ Acute on Chronic COPD Exacerbation (2) Acute kidney injury and Hyponatremia, Hypovolemic, Secondary to #1 (3) Hyperglycemia, stress induced, steroids (4) Hyperlipidemia (5) Chronic neurogenic bladder and bowel s/p spinal surgery (6) Former Tobacco use You will use the following diet at home:: Cardiac Your food should be the consistency of: Regular Your liquids should be the consistency of: Regular/Thin Discharge Activity: - - Avoid aggressive activity until resolved current exacerbation and also no marked coughing with influenza infection. May resume sexual activity in: 10-14 days Weight Bearing Status: Weight bearing as tolerated Call your doctor if you observe: Fever of 101 or Higher, Inability to urinate, Inability to have a bowel movement, Shortness of breath, Dizziness, Fainting spells, Chest pain, Uncontrolled pain Instructions: Adult Self-Care for Colds, ED Influenza Ch, What is COPD?, Chronic Lung Disease: Preventing Lung Infections, What Is Emphysema?, Traveling with Oxygen, Using Oxygen Safely, Using a Nebulizer (Adult) Allergies/Adverse Reactions: Allergies Sulfa (Sulfonamide Antibiotics) Allergy (Verified 11/26/17 17:47) FACE GETS RED AND ITCHY Medications to take at Discharge Albuterol Sulfate [Ventolin Hfa] 1 - 2 puff INHALATION Q4H PRN 11/26/17 Atorvastatin Calcium [Lipitor] 10 mg PO QHS 11/26/17 Diclofenac [Voltaren] 75 mg PO BIDCM 11/26/17 Fluticasone/Vilanterol [Breo Ellipta 200-25 Mcg INH] 1 each IH DAILY 11/26/17 Gabapentin [Neurontin] 600 mg PO QHS 11/26/17 Trazodone HCl 50 mg PO QHS 11/26/17 Umeclidinium [place] [Incruse Ellipta] 1 each IH DAILY 11/26/17 Albuterol Aerosols [Ventolin Aerosols] 2.5 mg INHALATION Q2H PRN PRN #1 box 11/28/17 Guaifenesin [Mucinex] 1,200 mg PO BID #20 tab 11/28/17 Ipratropium/Albuterol Sulfate [Duoneb] 3 ml INHALATION Q4HWA.RT #1 box 11/28/17 Prednisone 10 mg PO UD #30 tab 11/28/17 The following prescriptions were given: Albuterol Aerosols [Ventolin Aerosols] 2.5 mg INHALATION Q2H PRN PRN #1 box PRN Reason: SOB &/OR WHEEZING Ipratropium/Albuterol Sulfate [Duoneb] 3 ml INHALATION Q4HWA.RT #1 box Prednisone 10 mg PO UD #30 tab Guaifenesin [Mucinex] 1,200 mg PO BID #20 tab Primary Care Physician: Matt Peace MD [Primary Care Provider] - Please follow up with your Primary Care Physician in: Follow-up within 3-5 days to review admission. Please Follow Up With: Kartihk Soto MD When: Follow-up within 1-2 weeks to review recent admission. Proposed Discharge Date: 11/28/17
--- NOTE | 2017-11-28 10:18 | PCM.DC.SUM ---
Discharge Date and Diagnosis - Problem List Patient Problems: Active and Suspected Problems COPD exacerbation (Acute) HLD (hyperlipidemia) (Acute) Neurogenic bladder (Acute) Neurogenic bowel (Acute) Hypoxia (Acute) Acute diarrhea (Acute) Date of Admission: 11/26/17 Date of Discharge: 11/28/17 - Primary Discharge Diagnosis Active and Suspected Problems COPD exacerbation (Acute) HLD (hyperlipidemia) (Acute) Neurogenic bladder (Acute) Neurogenic bowel (Acute) Hypoxia (Acute) Acute diarrhea (Acute) (1) General Malaise, Cough, Fever, General Debility secondary to Influenza A Viral Syndrome w/ Acute on Chronic COPD Exacerbation (2) Acute kidney injury and Hyponatremia, Hypovolemic, Secondary to #1 (3) Hyperglycemia, stress induced, steroids (4) Hyperlipidemia (5) Chronic neurogenic bladder and bowel s/p spinal surgery (6) Former Tobacco use - Secondary Discharge Diagnosis (1) Hyperglycemia, stress induced, steroids (2) Hyperlipidemia (3) Chronic neurogenic bladder and bowel s/p spinal surgery (4) Former Tobacco use Hospital Course and Treatment Operations: None Procedures: EKG Summary of Care Provided: The patient is a 72 y/o F w/ PMHx: Chronic COPD following w/ CC Pulmonary, Hx Neurogenic Bladder and Bowel following spinal surgery remotely, HLD, Former Tobacco use who presented to the [facility] ED on 11/26/17 with history of recent ongoing shortness of breath, worse with exertion which was treated outpatient with Levaquin and steroids completed the day prior to presentation however she continued to have rhinorrhea, productive cough for several days as well as onset loose stool arthralgia and myalgias for now > 48 hours. CXR in the ED w/ chronic changes. Admission CBC w/ WBC 14.8 with L shift-->11/27/17 CBC w/ WBC 11.3, Hgb 11.2, Plts 241 with improved shift. Influenza A positive. Deferred Tamiflu per discussion with patient given onset increased sxs now > 48 hours prior. Admitted and maintained on PCU, maintain on oxygen with wean as tolerated to room air, continue ATC duonebs, PRN albuterol, IV solumedrol-->prednisone therapy w/ taper upon discharge, HOB, IS parameters w/ pending Bld cx x 2 from ED. Oxygenation testing performed w/ noted 96% on RA at rest, 86% on RA with exertion and improvement w/ O2 2L NC supplementation to 93% w/ exertion. Case management/SW arranged home oxygen and nebulizer machine given these results. Also upon admission, patient with Acute kidney injury and Hyponatremia, Hypovolemic secondary to #1. Admission BUN/Cr 27/1.33, prior baseline creatinine noted to be normal. Hydrated, held nephrotoxic medications and repeat chemistry 11/27/17 BUN/Cr 18/0.79, resolved, continue gentle hydration, encourage oral intake. Patient with noted hyperglycemia during admission, HgBA1c obtained to be cautious, 5.7%. Patient discharged to home in stable condition with follow-up with PCP as well as Pulmonary w/ steroid taper, aerosols. DAY OF DISCHARGE PROGRESS NOTE: Subjective: Patient without acute event overnight per self and nursing report. Patient denies fever, chills, nausea, emesis, abdominal pain, chest pain or worsened dyspnea. She notes being eager for discharge. Repeat oxygenation assessment this AM with confirmed need for oxygen 2L NC primarily with exertion which was set-up. Patient agreeable to discharge to home. Patient will be discharged with follow-up with primary care physician within 3-5 days in addition to Pulmonary with whom she is already following within 1-2 weeks. Objective: T 98.8, heart rate 65, BP 150/42, respiratory rate 16, 96% on room air at rest, 86% on room air with exertion, improved to 93% on 2 L nasal cannula. Physical Examination: General: awake, alert, oriented x 3 and cooperative, seated upright in the bed in no apparent distress, improved appearance. Skin: normal color, turgor, no icterus, cyanosis. HEENT: AT/NC, EOMI, PERRLA, improved MM. Lungs: Diminished BS diffusely, > bases, mildly coarse, mild effort, no current wheezing noted. Heart: Regular rate and rhythm; no gallop, rub audible. Abdomen: soft, NTTP, ND, normal BS. Extremities: no cyanosis, clubbing, or edema. Neurological: patient awake, alert, oriented x 3; cognitive function intact; pupils equally reactive to light and accomodation; cranial nerves II-XII grossly normal, moving all 4 extremities, no focal deficits, strength improved, mildly to moderately globally decreased secondary to acute presentation. Psychiatric: affect appears improved, less fatigued, no acute evidence of depressive or anxiety feelings. Assessment and Plan: Please see hospital summary above. Discharge Activity: - - Avoid aggressive activity until resolved current exacerbation and also no marked coughing with influenza infection. May resume sexual activity in: 10-14 days Weight Bearing Status: Weight bearing as tolerated Call your doctor if you observe: Fever of 101 or Higher, Inability to urinate, Inability to have a bowel movement, Shortness of breath, Dizziness, Fainting spells, Chest pain, Uncontrolled pain Home Medications: Medications to take at Discharge Albuterol Sulfate [Ventolin Hfa] 1 - 2 puff INHALATION Q4H PRN 11/26/17 Atorvastatin Calcium [Lipitor] 10 mg PO QHS 11/26/17 Diclofenac [Voltaren] 75 mg PO BIDCM 11/26/17 Fluticasone/Vilanterol [Breo Ellipta 200-25 Mcg INH] 1 each IH DAILY 11/26/17 Gabapentin [Neurontin] 600 mg PO QHS 11/26/17 Trazodone HCl 50 mg PO QHS 11/26/[address] [place] [Incruse Ellipta] 1 each IH DAILY 11/26/17 Albuterol Aerosols [Ventolin Aerosols] 2.5 mg INHALATION Q2H PRN PRN #1 box 11/28/17 Guaifenesin [Mucinex] 1,200 mg PO BID #20 tab 11/28/17 Ipratropium/Albuterol Sulfate [Duoneb] 3 ml INHALATION Q4HWA.RT #1 box 11/28/17 Prednisone 10 mg PO UD #30 tab 11/28/17 Following Prescrptions Were Given to Patient: Albuterol Aerosols [Ventolin Aerosols] 2.5 mg INHALATION Q2H PRN PRN #1 box PRN Reason: SOB &/OR WHEEZING Ipratropium/Albuterol Sulfate [Duoneb] 3 ml INHALATION Q4HWA.RT #1 box Prednisone 10 mg PO UD #30 tab Guaifenesin [Mucinex] 1,200 mg PO BID #20 tab Primary Care Physician: Matt Peace MD [Primary Care Provider] - Please follow up with your Primary Care Physician in: Follow-up within 3-5 days to review admission. Please Follow Up With: Karthik Soto MD When: Follow-up within 1-2 weeks to review recent admission. Patient Instructions: Adult Self-Care for Colds, What is COPD?, Chronic Lung Disease: Preventing Lung Infections, What Is Emphysema?, Traveling with Oxygen, Using Oxygen Safely, Using a Nebulizer (Adult), ED Influenza Ch Disposition: Home Minutes spent on discharge:: 35 Patient Condition:: Fair Meaningful Use Info Meaningful Use Diagnoses (Choose all that apply): None applicable Code Visit Inpatient E&M: 00945 Disch Hosp
--- NOTE | 2017-11-28 10:41 | CASEMGMT ---
RN WILLIS met with patient to discuss patient choice for oxygen and HHC provider. Patient chose [employer] and [facility]. Per Flory with [facility], they can accept. Notified of patient's discharge today. Faxed [employer] and entered order. Faxed order and referral packet to [facility] for home oxygen. Called Neli with [facility] to notify. Notified patient of arrangements. Patient verbalizes understanding.
--- NOTE | 2017-11-28 11:33 | CASEMGMT ---
Met with patient again because per Loin Trimmer, Mary, patient does not know what's going on with her discharge. Upon entering the room patient appears frustrated and anxious, rubbing her head, sighing, and fiddling with items on her bedside table. BHUMI PEDRO re-introduced self and role at [facility]. RN WILLIS inquired about patient's uncertainty with the transition plan. Patient asks Well, I need to know what's happening. RN WILLIS explained to patient that [employer] would be delivering her oxygen to the hospital prior to discharge and that home health would contact her regarding her initial appnt. Patient verbalizes frustration with needing to wait for oxygen to be delivered and not having ordered lunch. Patient states I never dreamed I'd be here until 1pm. BHUMI PEDRO again explained the full referral process to the patient, and patient states I wish I wouldn't have asked for a different company, [employer] would have been faster. BHUMI PEDRO again reminds patient of the referral process and reassures patient [employer] will be here as soon as they finish processing the referral. Patient asks about who pays for the oxygen and BHUMI PEDRO informs patient that oxygen in covered by her [facility], but specific out of pocket expenses are not available to this showcase maker. BHUMI PEDRO directs patient to speak with the [employer] customer service representative who delivers her oxygen to the room or at home set-up. Patient verbalizes understanding and asks this showcase maker to get her a menu and states someone threw the one she had away. BHUMI PEDRO notifies progressive care unit registered nurse, Mary, that patient would like to order lunch and needs a menu. Mary agrees to follow-up. BHUMI PEDRO provided patient with this RN CM contact information should any additional questions arise. BHUMI PEDRO will remain available to assist.
== END 2017-11-28 13:35 | disposition home health service (06) | DRG 194 ==
LOC: ED 13:23 → PCU 15:58
PROVIDERS: Physician Assistant; Admitting Provider Internal Medicine; Emergency Provider Emergency Medicine; Family Provider Family Medicine; PCP Family Medicine; Visit Provider Family Medicine
DX: J10.1 Influenza due to other identified influenza virus with other respiratory manifestations (principal); J44.1 Chronic obstructive pulmonary disease with (acute) exacerbation; N17.9 Acute kidney failure, unspecified; E44.0 Moderate protein-calorie malnutrition; K59.2 Neurogenic bowel, not elsewhere classified; N31.9 Neuromuscular dysfunction of bladder, unspecified; E87.1 Hypo-osmolality and hyponatremia; Z68.1 Body mass index [BMI] 19.9 or less, adult; E86.1 Hypovolemia; Z87.891 Personal history of nicotine dependence; E78.5 Hyperlipidemia, unspecified; R09.02 Hypoxemia; R19.7 Diarrhea, unspecified; R73.9 Hyperglycemia, unspecified
CPT/HCPCS: 36415; 71046; 80048; 82274; 83036; 83605; 83630; 83735; 83880; 84484; 85025; 87040; 87493; 87633; 87804; 93005; 94640; 97162; 97165; 97802; 99285; J7030; J7040; A4216

== ENCOUNTER → 2017-12-14 14:44 | Outpatient (CLI) | payer MEDICARE, OTHER, SELFPAY ==
--- NOTE | 2017-12-14 14:47 | US_ITS ---
STUDY: RENAL ULTRASOUND - COMPLETE REASON FOR EXAM: Female, 72 years old. Neurogenic bladder TECHNIQUE: Ultrasound evaluation of the kidneys was performed with real-time and static marte-scale imaging. COMPARISON: None. FINDINGS: RIGHT KIDNEY: Normal location of the right kidney, which is normal in size. The right kidney measures 9.7 cm. There is a normal cortex of the right kidney. The renal cortex measures 1.2 cm. There is no right renal mass or cyst. There are no right renal calculi. There is no right hydronephrosis. DISTAL RIGHT URETER: There is non-visualization of the distal right ureter. There is no demonstrated right ureterovesical junction calculus. There is no demonstrated right ureteral jet. LEFT KIDNEY: Normal location of the left kidney, which is normal in size. The left kidney measures 9.4 cm. There is a normal cortex of the left kidney. The renal cortex measures 0.9 cm. There is no left renal mass or cyst. There are no left renal calculi. There is no left hydronephrosis. DISTAL LEFT URETER: There is non-visualization of the distal left ureter. There is no demonstrated left ureterovesical junction calculus. There is no demonstrated left ureteral jet. BLADDER: The distended urinary bladder has a volume of 209 ml. The empty urinary bladder has a volume of 18 ml. There is trabeculation with thickening of the wall of the urinary bladder. There is no demonstrated mass within the urinary bladder. There are no demonstrated bladder calculi. US/Kidney and Bladder IMPRESSION: Wall thickening of the urinary bladder. Small postvoid residual. No hydronephrosis. Electronically Signed: Gasper Cali MD at 15:11 EST , Service support ,
== END ==
PROVIDERS: Family Provider Family Medicine; PCP Family Medicine; Visit Provider Internal Medicine Nephrology
DX: N31.9 Neuromuscular dysfunction of bladder, unspecified (principal)
CPT/HCPCS: 76770

== ENCOUNTER 2018-10-18 06:15 | Day surgery (SDC) | payer MEDICARE, OTHER, SELFPAY ==
[2018-10-09 14:33] VITALS: BMI 17.5
--- NOTE | 2018-10-18 | IMM_PTH ---
PATIENT: FLORY ALBERTO LOC: EN U#:[id number] AGE/SX: 73/F ROOM: RE10/18/[address]: Dr. Bryan Castillo MD : 1945 BED: DIS: 10/18/2018 SPEC #: [id number] RECD: 10/18/18 14:37 STATUS: JUAN REAlesha #: [id number] MIQUEL: 10/18/18 00:[address]: Bryan Castillo DEPT: IMMUNOHISTOCHEMISTRY RECD BY: Zabrina Negron ENTERED: 10/18/18 14:38 SP TYPE: IMMUNO OTHR DR: Dr. Matt Peace MD Tissues: B - Stomach, NOS Procedures: H Pylori (initial) PHYSICIAN & INSTITUTION [place] [id number] SPECIMEN INFORMATION: Tissue Source: B - Antral biopsy Clinical Info: Guaiac positive stool Specimen Number: [id number] CPT code: 05064 METHODOLOGY: Deparaffinized sections of prefer/formalin-fixed tissue or PAP/DQ stained slides are incubated with monoclonal/polyclonal antibodies/oligonucleotide probes. Localization is made via biotin free immunoperoxidase method. Appropriate controls are performed and reacted as expected. Results on target cell population are indicated in the following table: RESULTS: ANTIBODY / CLONE RESULT Block B H Pylori (polyclonal) negative These tests were developed and their performance characteristics determined by [facility]. They may not have been cleared or approved by the U.S. Food and Drug Administration. The FDA has determined that such clearance or approval is not necessary. INTERPRETATION: B. Antral biopsy: Negative for Helicobacter pylori organisms. SJ:letty 10/23/18
[2018-10-18 06:38] VITALS: BP 127/78; PULSE 59; RESP 16; TEMP 37; O2SAT 96; BMI 17.2
--- NOTE | 2018-10-18 07:00 | EGD_PTH ---
PATIENT: FLORY ALBERTO LOC: EN U#:[id number] AGE/SX: 73/F ROOM: RE10/18/[address]: Dr. Bryan Castillo MD : 1945 BED: DIS: 10/18/2018 SPEC #: [id number] RECD: 10/18/18 08:34 STATUS: JUAN MAIK #: [id number] MIQUEL: 10/18/18 07:[address]: Bryan Castillo DEPT: SURGICAL PATHOLOGY RECD BY: Joseph Aguilar ENTERED: 10/18/18 13:19 SP TYPE: EGD BIOPSY OT DR: Dr. Matt Peace MD Tissues: A - Duodenum, NOS B - Gastric mucous membrane Procedures: Surgery Specimen Level IV HEADER OPERATION: Colonoscopy, EGD ([facility]) PRE-OP DIAGNOSIS: Guaiac positive stool TISSUE SUBMITTED: A - Duodenal biopsy, B - Antral biopsy for histo and H. pylori MICROSCOPIC DIAGNOSIS A. 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 B. Antral biopsy: Mild gastritis. See microscopic description and comment. LUDA:letty 10/21/18 COMMENT B. The results of immunohistochemistry for Helicobacter pylori will be reported separately ([id number]). MICROSCOPIC DESCRIPTION Slides are reviewed. B. The specimen shows fragments of gastric mucosa with chronic inflammatory cell infiltrates in the lamina propria consisting of lymphocytes and plasma cells, consistent with mild chronic gastritis. GROSS DESCRIPTION A - Received in fixative is one container labeled with the patient's name and designated duodenal biopsy. The specimen consists of one irregular fragment of light small soft tissue that measures 0.3 x 0.3 x 0.1 cm. The specimen is totally submitted in one cassette. B - Received in fixative is one container labeled with the patient's name and designated antral biopsy. The specimen consists of one irregular fragment of light small soft tissue that measures 0.3 x 0.3 x 0.1 cm. The specimen is totally submitted in one cassette. / LUDA:letty 10/18/18 TC:3 CPT: 78285 x2
[2018-10-18 07:25] VITALS: BP 127/78; BP 93/56; PULSE 65; RESP 16; TEMP 36.7; O2SAT 100
--- NOTE | 2018-10-18 07:28 | OP.ENDO_ITS ---
Patient Name: Lisa Lee Procedure Date: 10/18/2018 6:53 AM Date of : 1945 Age: 73 Procedure: Upper GI endoscopy Indications: Heme positive stool Providers: Bryan Castillo MD Referring MD: Matt Peace Md Medicines: See the Anesthesia note for documentation of the administered medications Complications: No immediate complications. Procedure: Pre-Anesthesia Assessment: - Prior to the procedure, a History and Physical was performed, and patient medications and allergies were reviewed. The patient's tolerance of previous anesthesia was also reviewed. The risks and benefits of the procedure and the sedation options and risks were discussed with the patient. All questions were answered, and informed consent was obtained. Prior Anticoagulants: The patient has taken no previous anticoagulant or antiplatelet agents. ASA Grade Assessment: III - A patient with severe systemic disease. After reviewing the risks and benefits, the patient was deemed in satisfactory condition to undergo the procedure. After obtaining informed consent, the endoscope was passed under direct vision. Throughout the procedure, the patient's blood pressure, pulse, and oxygen saturations were monitored continuously. The gastroscope was introduced through the mouth, and advanced to the second part of duodenum. The upper GI endoscopy was accomplished without difficulty. The patient tolerated the procedure well. Scope In: 7:05:00 AM Scope Out: 7:08:26 AM Total Procedure Duration Time 0 hours 3 minutes 26 seconds Findings: The Z-line was regular and was found 40 cm from the incisors. A small hiatal hernia was present. Diffuse mild inflammation characterized by granularity was found in the gastric antrum. Biopsies were taken with a cold forceps for histology. Diffuse mildly erythematous mucosa without active bleeding and with no stigmata of bleeding was found in the duodenal bulb. Biopsies were taken with a cold forceps for histology. Impression: - Z-line regular, 40 cm from the incisors. - Small hiatal hernia. - Chronic gastritis. Biopsied. - Erythematous duodenopathy. Biopsied. Recommendation: - Discharge patient to home. - Resume previous diet. - Continue present medications. - Use Pepcid (famotidine) 20 mg PO daily. Procedure Code(s): --- Professional --- 50999, Esophagogastroduodenoscopy, flexible, transoral; with biopsy, single or multiple Diagnosis Code(s): --- Professional --- K44.9, Diaphragmatic hernia without obstruction or gangrene K29.50, Unspecified chronic gastritis without bleeding K31.89, Other diseases of stomach and duodenum R19.5, Other fecal abnormalities CPT copyright 2017 [employer]. All rights reserved. The codes documented in this report are preliminary and upon vibrator operator review may be revised to meet current compliance requirements. Bryan Castillo MD 10/18/2018 7:27:39 AM This report has been signed electronically. Number of Addenda: 0 Note Initiated On: 10/18/2018 6:53 AM
[2018-10-18 07:30] VITALS: BP 111/88; BP 127/78; PULSE 70; RESP 16; O2SAT 100
--- NOTE | 2018-10-18 07:30 | OP.ENDO_ITS ---
Patient Name: Lisa Lee Procedure Date: 10/18/2018 7:09 AM Date of : 1945 Age: 73 Procedure: Colonoscopy Indications: Heme positive stool Providers: Bryan Castillo MD Referring MD: Matt Peace Md Medicines: See the Anesthesia note for documentation of the administered medications Patient Profile: Last Colonoscopy: March 2008. Complications: No immediate complications. Procedure: Pre-Anesthesia Assessment: - Prior to the procedure, a History and Physical was performed, and patient medications and allergies were reviewed. The patient's tolerance of previous anesthesia was also reviewed. The risks and benefits of the procedure and the sedation options and risks were discussed with the patient. All questions were answered, and informed consent was obtained. Prior Anticoagulants: The patient has taken no previous anticoagulant or antiplatelet agents. ASA Grade Assessment: III - A patient with severe systemic disease. After reviewing the risks and benefits, the patient was deemed in satisfactory condition to undergo the procedure. After I obtained informed consent, the scope was passed under direct vision. Throughout the procedure, the patient's blood pressure, pulse, and oxygen saturations were monitored continuously. The Colonoscope was introduced through the anus and advanced to the cecum, identified by appendiceal orifice and ileocecal valve. The ileocecal valve and the appendiceal orifice were photographed. Scope In: 7:11:01 AM Scope Withdrawal Time 0 hours 5 minutes 32 seconds Scope Out: 7:21:59 AM Total Procedure Duration Time 0 hours 10 minutes 58 seconds Findings: The perianal exam findings include very lax anal tone to no tone. Scattered diverticula were found in the sigmoid colon. The colon (entire examined portion) was mildly tortuous. The exam was otherwise without abnormality. Impression: - Very lax anal tone to no tone. found on perianal exam. - Diverticulosis in the sigmoid colon. - Tortuous colon. - The examination was otherwise normal. - No specimens collected. Recommendation: - Discharge patient to home. - Resume previous diet. - Continue present medications. - Repeat colonoscopy in 10 years for screening purposes. Procedure Code(s): --- Professional --- 71892, Colonoscopy, flexible; diagnostic, including collection of specimen(s) by brushing or washing, when performed (separate procedure) Diagnosis Code(s): --- Professional --- R19.5, Other fecal abnormalities K57.30, Diverticulosis of large intestine without perforation or abscess without bleeding Q43.8, Other specified congenital malformations of intestine CPT copyright 2017 [employer]. All rights reserved. The codes documented in this report are preliminary and upon classifier review may be revised to meet current compliance requirements. Bryan Castillo MD 10/18/2018 7:30:03 AM This report has been signed electronically. Number of Addenda: 0 Note Initiated On: 10/18/2018 7:09 AM
[2018-10-18 07:35] VITALS: BP 100/53; BP 127/78; PULSE 74; RESP 16; O2SAT 100
[2018-10-18 07:40] VITALS: BP 127/78; BP 97/57; PULSE 63; RESP 16; TEMP 37; O2SAT 96
[2018-10-18 07:50] VITALS: BP 127/78
== END 2018-10-18 08:00 | disposition home or self-care (01) ==
LOC: EN 06:16 → AC 06:17
PROVIDERS: Family Provider Family Medicine; PCP Family Medicine; Referring Provider Family Medicine; Visit Provider Surgery
PROC: 0DJD8ZZ Inspection of Lower Intestinal Tract, Via Natural or Artificial Opening Endoscopic (ICD-10-PCS; CPT 45378; principal; 2018-10-18 06:55)
DX: K29.70 Gastritis, unspecified, without bleeding (principal); K57.30 Diverticulosis of large intestine without perforation or abscess without bleeding; K44.9 Diaphragmatic hernia without obstruction or gangrene; J44.9 Chronic obstructive pulmonary disease, unspecified; E78.00 Pure hypercholesterolemia, unspecified; J45.909 Unspecified asthma, uncomplicated; Z87.891 Personal history of nicotine dependence; Z79.51 Long term (current) use of inhaled steroids; Z79.899 Other long term (current) drug therapy
CPT/HCPCS: 43239; 45378; 88305; 88342; J7120; J1610

== ENCOUNTER → 2019-07-24 | Outpatient (CLI) | payer MEDICARE, OTHER, SELFPAY ==
--- NOTE | 2019-07-30 17:25 | STRESSREP_ITS ---
Stress Test Report Date: 07/24/2019 Procedure: Pharmacologic stress nuclear imaging study Indications: Dyspnea on exertion Consent: Per the patient Procedure: The patient underwent pharmacologic (Regadenoson) evaluation with a peak heart rate of 75 beats per minute (50 %predicted maximal heart rate) and a peak blood pressure of 144/70 mmHg. The baseline ECG demonstrated normal sinus rhythm. EKG during lexiscan infusion revealed significant change from baseline. EKG post infusion revealed significant change from baseline [There were no cardiac dysrhythmias pretest, during pharmacologic infusion, or recovery]. [There was no complaint of chest discomfort during pharmacologic infusion or recovery]. The examination was discontinued secondary to completion of protocol. Impression: 1. Lexiscan stress test test is negative for Lexiscan infusion induced EKG changes of ischemia. 2. Lexiscan stress test test is negative for Lexiscan infusion induced chest pain. 3. Results of the nuclear portion of the test is as below Myocardial perfusion imaging study: Technique: The patient was injected with 11.1 millicuries of technetium 99m Cardiolite and subsequently rest SPECT Cardiolite nuclear imaging was obtained in the horizontal long, vertical long, and short axis views. The patient underwent pharmacologic (Regadenoson) evaluation. Please see above for details. The patient was injected with 32.8 millicuries of technetium 99m Cardiolite and subsequently stress SPECT Cardiolite nuclear imaging was obtained in the horizo ntal long, vertical long, and short axis views. A gated Cardiolite study at peak stress was obtained. Interpretation: Rest and stress SPECT Cardiolite nuclear imaging status post realignment, nor malization, and attenuation correction demonstrate [normal myocardial radioisotope uptake]. Gated images reveal no significant regional wall motion abnormalities. The reported LVEF is greater than 70 %. Impression: 1. There is no evidence of significant ischemia or infarction. 2. Estimated ejection fraction is greater than 70%. This note was generated with Ethonovaation software. It may contain incorrect words, spelling, and punctuation that were not noted in checking the note before signing.
== END | disposition home or self-care (01) ==
LOC: CVS 06:43
PROVIDERS: Family Provider Family Medicine; PCP Family Medicine; Referring Provider Family Medicine; Visit Provider Family Medicine
DX: R06.09 Other forms of dyspnea (principal); I25.10 Atherosclerotic heart disease of native coronary artery without angina pectoris; I25.84 Coronary atherosclerosis due to calcified coronary lesion; Z13.6 Encounter for screening for cardiovascular disorders
CPT/HCPCS: 78452; 93017; A9500; A4216; J2785

== ENCOUNTER 2019-10-26 20:35 | Emergency (ER) | payer MEDICARE, OTHER, SELFPAY ==
[2019-10-26 20:35] VITALS: BP 119/69; PULSE 82; RESP 26; TEMP 37.5; O2SAT 94; BMI 16.6
--- NOTE | 2019-10-26 20:54 | RAD_ITS ---
STUDY: X-RAY CHEST REASON FOR EXAM: Female, 74 years old. SOB AND DIZZINESS WORSENING OVER LAST FEW DAYS TECHNIQUE: PA and lateral views of the chest. COMPARISON: November 26, 2017 FINDINGS: The lungs remain hyperinflated. There is a right pleural effusion present Normal size heart. Normal mediastinum and marco antonio. Normal visualized pulmonary arteries. Normal visualized aortic arch and descending thoracic aorta. Normal visualized thoracic spine. Normal visualized ribs, clavicles, and shoulders. There are postsurgical changes of the lower cervical spine. There is no demonstrated abnormality of the visualized soft tissue structures of the upper abdomen. RAD/Chest PA and Lateral IMPRESSION: Hyperinflated lungs suggestive of underlying COPD. Right pleural effusion, cannot exclude associated right basilar atelectasis and/or pneumonia. Electronically Signed: Lilia Li MD at 22:28 EST Tel , Service support ,
[2019-10-26 21:04] VITALS: RESP 22; O2SAT 95
--- NOTE | 2019-10-26 21:33 | EKG12_ITS ---
Test Reason : SOB Blood Pressure : / mmHG Vent. Rate : 072 BPM Atrial Rate : 072 BPM P-R Int : 130 ms QRS Dur : 072 ms QT Int : 382 ms P-R-T Axes : 073 020 072 degrees QTc Int : 418 ms Normal sinus rhythm Normal ECG Confirmed by CHIKA CEJA, YOLY ([id number]), chart clerk CATHERINE CARBAJAL ([id number]) on 10/28/2019 9:47:58 AM Referred By: MAURY Confirmed By:YOLY FARR MD
[2019-10-26 21:55] VITALS: PULSE 75; RESP 18
[2019-10-26] MEDS: Ipratropium/Albuterol Sulfate 3 ML AMPUL.NEB INHALATION (21:55)
[2019-10-26 22:00] VITALS: PULSE 77; O2SAT 100
[2019-10-26] MEDS: MethylPREDNISolone 125 MG/2 ML Vial IV (22:00)
[2019-10-26 22:13] LABS: Absolute Lymphocyte Count 0.52 X10^3/uL (0.83-4.51); Absolute Neutrophil Count 7.4 X10^3/uL (2.0-7.7); Basophil# 0.03 X10^3/uL; Basophil% 0.3 % (0-1); Eosinophil# 0.14 X10^3/uL; Eosinophils% 1.6 % (0-5); Hematocrit 42.1 % (37-47); Hemoglobin 14.1 g/dL (12.0-15.0); Lymphocyte # 0.52 X10^3/ul (4.0); Lymphocyte % 5.9 % (19-41); Mean Corp Hgb Conc 33.5 g/dL (32-36); Mean Corpuscular Hgb 32.6 pg (27.0-32.0); Mean Corpuscular Volume 97.2 fL (81-99); Mean Platelet Vol. 9.2 fl (6.2-12.0); Monocyte# 0.64 X10^3/uL; Monocyte% 7.3 % (0-10); NRBC Flagged by Analyzer 0 % (0-5); Neutrophil # 7.37 X10^3/uL (2.7-7.7); Neutrophil % 84.1 % (47-70); POSITIVE DIFFERENTIAL YES; Platelet Count 278 K/mm3 (150-450); RBC Distribution Width CV 12.9 % (11.6-14.6); RBC Distribution Width SD 46.3 fl (35.1-43.9); Red Blood Count 4.33 M/mm3 (4.2-5.4); White Blood Count 8.8 K/mm3 (4.4-11.0)
[2019-10-26 22:14] LABS: Differential Indicated SCAN CRITERIA MET
[2019-10-26 22:34] LABS: Anion Gap 6 (5-15); BUN 14 mg/dL (7-18); BUN/Creat Ratio 12.6 RATIO (10-20); Calcium,Total 8.9 mg/dL (8.5-10.1); Chloride 98 mmol/L (98-107); Creatinine, Serum 1.11 mg/dL (0.55-1.02); EST Glomerular Filtration Rate 51 mL/min (>60); Est Glom Filt Rate - Afr Amer 62 mL/min (>60); Estimated Creatinine Clearance 32.32 ml/min; Glucose 109 mg/dL (74-106); Potassium 3.9 mmol/L (3.5-5.1); Sodium Level 132 mmol/L (136-145)
[2019-10-26 22:47] LABS: Differential Comment SCANNED; Platelet Estimate ADEQUATE (ADEQ)
[2019-10-26 22:48] LABS: Red Cell Morphology NORM C+C NORMAL (NORM C&C)
--- NOTE | 2019-10-26 23:15 | ED.VISSUMM ---
- ER Visit Summary Date of Service: 10/26/19 Chief Complaint: Cannot breathe History of Present Illness: The patient is a 74 F with shortness of breath for the past 2 days. This came on gradually. Worse with exertion. Associated with a productive cough. No fevers. She did have some near syncope. She has a history of COPD. She is not on home oxygen. She is using nebulizers at home but is not currently on steroids. She was on Cipro and Flagyl for colitis. She is not complaining of abdominal pain or bleeding. No other GI symptoms. No fevers. Physical Examination: Afebrile and vital signs unremarkable. Alert and oriented. No acute distress. Expiratory wheeze in all farooq. Heart regular. Abdomen soft. Extremities nontender with no edema. Skin appears normal. Test Results: EKG shows sinus rhythm at a rate of 72. No sign of ischemia or infarction pattern. CBC normal. Sodium 132 and creatinine 1.11. Troponin normal. Chest x-ray shows COPD and a small right pleural effusion. Emergency Department Course and Treatment: Patient was treated with DuoNeb and Solu-Medrol. On reevaluation, she is improved. She will continue her home antibiotics. Continue steroids at home. Continue breathing treatments at home. Tylenol and/or ibuprofen as needed for fever and pain. Follow-up with primary care. Discharge. Treatment Plan: As above Disposition: Discharged Impression: COPD exacerbation This note was generated with NextDigest dictation software. It may contain incorrect words, spelling, and punctuation that were not noted in review of the chart prior to signing ED Disposition - Plan for ED Patient: Referrals: Matt Peace MD [Primary Care Provider] -
--- NOTE | 2019-10-26 23:17 | ED.DEP ---
ED Disposition - Plan for ED Patient: Instructions: Copd Flare Prescriptions: Prednisone 10 mg PO UD #33 tab Prescription Printed Referrals: Matt Peace MD [Primary Care Provider] -
[2019-10-26 23:29] VITALS: PULSE 78; RESP 20; O2SAT 92
== END 2019-10-26 23:29 | disposition home or self-care (01) ==
PROVIDERS: Emergency Provider Emergency Medicine; Family Provider Family Medicine; PCP Family Medicine
DX: J44.1 Chronic obstructive pulmonary disease with (acute) exacerbation (principal); J90 Pleural effusion, not elsewhere classified
CPT/HCPCS: 71046; 80048; 84484; 85025; 93005; 94640; 94760; 96374; 99284; A4216

== ENCOUNTER 2019-10-30 16:33 | Inpatient (IN) | payer MEDICARE, OTHER, SELFPAY ==
[2019-10-30] VITALS (9 sets, daily range): BP systolic 112–176; BP diastolic 69–79; PULSE 74–82; RESP 17–24; TEMP 36.6–37.1; O2SAT 93–100; BMI 16.5; BMI 16.1
--- NOTE | 2019-10-30 17:15 | EKG12_ITS ---
Test Reason : SOB Blood Pressure : / mmHG Vent. Rate : 067 BPM Atrial Rate : 067 BPM P-R Int : 130 ms QRS Dur : 084 ms QT Int : 396 ms P-R-T Axes : 081 062 072 degrees QTc Int : 418 ms Normal sinus rhythm Right atrial enlargement Borderline ECG Confirmed by CHIKA CEJA, YOLY ([id number]), dictionary editor CATHERINE CARBAJAL ([id number]) on 11/03/2019 12:47:24 PM Referred By: Reyes Saenz Confirmed By:YOLY FARR MD
[2019-10-30 17:31] LABS: Absolute Lymphocyte Count 0.74 X10^3/uL (0.83-4.51); Absolute Neutrophil Count 9.4 X10^3/uL (2.0-7.7); Basophil# 0.01 X10^3/uL; Basophil% 0.1 % (0-1); Eosinophil# 0.04 X10^3/uL; Eosinophils% 0.4 % (0-5); Hematocrit 44.5 % (37-47); Hemoglobin 14.6 g/dL (12.0-15.0); Lymphocyte # 0.74 X10^3/ul (4.0); Lymphocyte % 6.7 % (19-41); Mean Corp Hgb Conc 32.8 g/dL (32-36); Mean Corpuscular Hgb 32.2 pg (27.0-32.0); Mean Corpuscular Volume 98.2 fL (81-99); Mean Platelet Vol. 9.2 fl (6.2-12.0); Monocyte# 0.72 X10^3/uL; Monocyte% 6.6 % (0-10); NRBC Flagged by Analyzer 0 % (0-5); Neutrophil # 9.35 X10^3/uL (2.7-7.7); Neutrophil % 85.2 % (47-70); Platelet Count 315 K/mm3 (150-450); RBC Distribution Width CV 13.2 % (11.6-14.6); Red Blood Count 4.53 M/mm3 (4.2-5.4)
[2019-10-30] MEDS: Ipratropium/Albuterol Sulfate 3 ML AMPUL.NEB INHALATION ×2 (17:46→22:45)
[2019-10-30 17:49] LABS: Anion Gap 7 (5-15); BUN 18 mg/dL (7-18); BUN/Creat Ratio 15.8 RATIO (10-20); Calcium,Total 8.7 mg/dL (8.5-10.1); Chloride 96 mmol/L (98-107); Creatinine, Serum 1.14 mg/dL (0.55-1.02); EST Glomerular Filtration Rate 50 mL/min (>60); Est Glom Filt Rate - Afr Amer 60 mL/min (>60); Estimated Creatinine Clearance 31.22 ml/min; Glucose 108 mg/dL (74-106); Potassium 3.5 mmol/L (3.5-5.1); Sodium Level 131 mmol/L (136-145)
--- NOTE | 2019-10-30 18:00 | RAD_ITS ---
STUDY: X-RAY CHEST REASON FOR EXAM: Female, 74 years old. SOB, pt seen sunday for COPD flare. went home and took prednisone-noticed worsening SOB this morning at rest. Left leg swelling. TECHNIQUE: PA and lateral COMPARISON: October 26, 2019 FINDINGS: Lungs are hyperinflated but clear.. There is blunting of costophrenic angles likely representing pleural thickening although tiny effusion not excluded Normal size heart. Normal mediastinum and marco antonio. Normal visualized pulmonary arteries. Mildly calcified aortic arch and descending thoracic aorta. Dorsal spine demonstrates mild scoliosis deformity.. Normal visualized ribs, clavicles, and shoulders. Postsurgical changes of the cervical spine. There is no demonstrated abnormality of the visualized soft tissue structures of the upper abdomen. No significant change since prior exam RAD/Chest PA and Lateral IMPRESSION: COPD. Cannot definitively exclude tiny effusions Electronically Signed: Matt Contreras MD at 18:33 EST , Service support ,
--- NOTE | 2019-10-30 18:00 | US_ITS ---
STUDY: VENOUS DOPPLER ULTRASOUND - LEFT LOWER EXTREMITY REASON FOR EXAM: Female, 74 years old. LT FOOT SWELLING ONLY TECHNIQUE: Ultrasound evaluation of the deep vein system to include gilliam-scale imaging and compression was performed. Gilliam-scale imaging and Doppler sonographic evaluation, including duplex spectral analysis and qualitative color flow sonography, was performed. COMPARISON: None. FINDINGS: Common Femoral Vein: Normal compression, spontaneity and augmentation. Normal color Doppler. Common Femoral Vein/Greater Saphenous Junction: Normal compression, spontaneity and augmentation. Normal color Doppler. Deep Femoral Vein: Normal compression, spontaneity and augmentation. Normal color Doppler. Femoral Proximal: Normal compression, spontaneity and augmentation. Normal color Doppler. Femoral Middle: Normal compression, spontaneity and augmentation. Normal color Doppler. Femoral Distal: Normal compression, spontaneity and augmentation. Normal color Doppler. Popliteal Vein: Normal compression, spontaneity and augmentation. Normal color Doppler. Posterior Tibial Vein: Normal compression, spontaneity and augmentation. Normal color Doppler. Peroneal Vein: Normal compression, spontaneity and augmentation. Normal color Doppler. US/Venous Duplex Imag/Limited/Uni IMPRESSION: Normal venous Doppler ultrasound of the lower extremity. Electronically Signed: Matt Contreras MD at 19:12 EST , Service support ,
--- NOTE | 2019-10-30 18:33 | ED.VISSUMM ---
- ER Visit Summary Date of Service: 10/30/19 Chief Complaint: Shortness of breath History of Present Illness: The patient is a 74 F who presents with shortness of breath that has been getting worse over the past 2 to 3 days. Patient was seen here 4 days ago. Patient was given aerosol treatments and a prescription for prednisone at that time. Patient felt better prior to being discharged. Patient states her breathing is gotten progressively worse over the past few days. Patient states her breathing is worse with exertion. Patient admits to a cough but denies any sputum. Patient admits to subjective fevers. Patient admits to some pain in her chest with deep breathing. Patient does have a history of COPD. Patient has been using aerosols at home with no improvement. Physical Examination: Vital signs are stable except for mild tachypnea of 24. Patient's pulse oximeter is 100% on 3 L nasal cannula however, the patient does not have home oxygen. Patient is afebrile. Oral mucosa is pink and moist. Neck is supple. Trachea is midline. There is no JVD. Heart was regular rate and rhythm. Lungs are diminished bilaterally. There is diffuse expiratory wheezing. Abdomen is soft. Bowel sounds are normal. There is no tenderness. Cranial nerves II through XII are intact. There are no focal motor or sensory deficits noted. Extremities are intact x4. There is some edema of the left ankle. There is no calf tenderness. Test Results: CBC and basic metabolic profile were within normal limits. Troponin was normal. EKG showed a normal sinus rhythm with a rate of 67. There are no acute ST or T wave changes. PA and lateral chest x-ray was obtained. There are changes consistent with COPD but no acute infiltrate. Blood cultures were obtained. Emergency Department Course and Treatment: Patient took her prednisone today at home. Patient was given a DuoNeb aerosol here. Patient is feeling somewhat better. Patient was given a repeat albuterol aerosol. Patient is agreeable for admission to the hospital. Case was discussed with the hospitalist. Disposition: Admit for observation Impression: COPD exacerbation This note was generated with [employer] dictation software. It may contain incorrect words, spelling, and punctuation that were not noted in review of the chart prior to signing ED Disposition - Plan for ED Patient: Referrals: Matt Peace MD [Primary Care Provider] -
--- NOTE | 2019-10-30 19:22 | PCM.HP.STD ---
Problem List (1) COPD exacerbation Status: Acute (2) Guaiac positive stools Status: Acute (3) Acute diarrhea Status: Acute (4) Neurogenic bowel Status: Chronic (5) Neurogenic bladder Status: Chronic (6) HLD (hyperlipidemia) Status: Chronic History of Present Illness Date of Admission: 10/30/19 Chief Complaint: sob The patient is a 74 year old F with a significant history of COPD; neurogenic bladder; neurogenic bowel; and hyperlipidemia who presents emergency department with 1 week history of progressively worsening shortness of breath. Patient was at a hospital on 10/26/2019 and was discharged home on a steroid taper for COPD flare. She continued to have progressive worsening shortness of breath and came to emergency department. Associated with her symptoms is wheezing and nonproductive cough. Past Medical History Past Medical History (Chronic Problems): Chronic Problems (Last Reviewed 10/30/19 @ 20:33 by Reyes Saenz MD) Neurogenic bowel (Chronic) Neurogenic bladder (Chronic) HLD (hyperlipidemia) (Chronic) Medical History: Medical History (Last Reviewed 10/30/19 @ 20:43 by Reyes Saenz MD) Guaiac positive stools (Acute) R19.5 COPD (chronic obstructive pulmonary disease) J44.9 Allergies Sulfa (Sulfonamide Antibiotics) Allergy (Verified 10/30/19 16:34) FACE GETS RED AND ITCHY codeine Adverse Reaction (Verified 10/30/19 16:34) Nausea Home Medications: Ambulatory Orders Medication Instructions Recorded Albuterol Sulfate [Ventolin Hfa] 1 - 2 puff INHALATION Q4H PRN 11/26/17 Atorvastatin Calcium [Lipitor] 10 mg PO QHS 11/26/17 Diclofenac [Voltaren] 75 mg PO BIDCM 11/26/17 Gabapentin [Neurontin] 600 mg PO QHS 11/26/17 Albuterol Aerosols [Ventolin 2.5 mg INHALATION Q2H PRN PRN #1 11/28/17 Aerosols] box Fluticasone/Umeclidin/Vilanter 1 puff IH DAILY 10/16/18 [Trelegy Ellipta 100-62.5-25] Ciprofloxacin [Cipro] 500 mg PO BID 10/26/19 Metronidazole [Flagyl] 500 mg PO BID 10/26/19 Prednisone 10 mg PO UD #33 tab 10/26/19 Famotidine [Pepcid] 20 mg PO DAILY 10/30/19 Trazodone HCl 50 mg PO QHS 10/30/19 Surgical History: Surgical History (Last Reviewed 10/30/19 @ 20:43 by Reyes Saenz MD) History of back surgery Z98.890 History of breast lump removal Z98.890 History of hysterectomy Z90.710 Surgical History: cholecystectomy, hysterectomy, - - spinal surgery Psychiatric History: No pertinent psych hx 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 Tobacco Use: Cigarettes - *Family History Maternal Family History: Family History (Last Reviewed 10/30/19 @ 20:43 by Reyes Saenz MD) Father Kidney disease Sister Breast cancer Sister Cancer History Items: Heart Disease Paternal Family History: Family History (Last Reviewed 10/30/19 @ 20:43 by Reyes Saenz MD) Father Kidney disease Sister Breast cancer Sister Cancer History Items: Renal Disease Review of Systems Constitutional: Denies: Chills, Fever, Weight Change HEENT: Denies: Head Aches, Sinus Congestion, Sinus Drainage Cardiovascular: Reports: Edema - Left leg. Denies: Chest Pain, Palpitations Respiratory: Reports: Cough, Shortness of Breath, Wheezing. Denies: Sputum production Gastrointestinal: Denies: Abdominal Pain, Nausea, Vomiting Genitourinary: Denies: Dysuria Musculoskeletal: Denies: Joint Pain, Joint Tenderness Skin: Denies: Rash, Wounds Neurological: Denies: Numbness, Tingling, Focal weakness Psychiatric: Denies: Homicidal Ideations, Suicidal Ideations Hematologic/ Lymphatic: Denies: Easy Bruising, Easy Bleeding VTE Information - Inpt Only VTE Present on Admission: No VTE Mechan Device Prophylaxis: None VTE Pharm Prophylaxis ordered?: Yes - Physical Exam Vitals/I&O's: Vital Signs Temp Pulse Resp BP Pulse Ox 98.2 F 74 23 H 124/74 H 98 10/30/19 19:00 10/30/19 19:00 10/30/19 19:00 10/30/19 19:00 10/30/19 19:00 Oxygen Flow Rate (L/min) 2 Oxygen Delivery Method Nasal Cannula Weight: 45 kg Body Mass Index (BMI) 16.5 General: Alert, Oriented x3, Cooperative HEENT: Atraumatic, EOMI, Normocephalic Neck: Supple, Trachea Midline Lungs: Short of Breath, Tachypneic, Using Accessory Muscles, Wheezes, - - Conversational dyspnea Cardiovascular: Regular rate, Normal S1, Normal S2, No murmurs Abdomen: Bowel Sounds Present, Soft, Non Tender Extremities: Capillary Refill Less than 3 Seconds, Edema - Left leg, - - Left leg with claw toes Skin: No rashes, No breakdown Musculoskeletal: No Tenderness to Palpation of Joints or Extremities Neurological: Cranial nerves II-XII grossly intact Psych/Mental Status: Anxious Laboratory Results 10/30/19 16:55: WBC 11.0, RBC 4.53, Hgb 14.6, Hct 44.5, MCV 98.2, MCH 32.2 H, MCHC 32.8, RDW Std Deviation 47.0 H, RDW Coeff of Ashu 13.2, Plt Count 315, MPV 9.2, Immature Gran % (Auto) 1.000 H, Neut % (Auto) 85.2 H, Lymph % (Auto) 6.7 L, Sherman % (Auto) 6.6, Eos % (Auto) 0.4, Baso % (Auto) 0.1, Absolute Neuts (auto) 9.4 H, Absolute Lymphs (auto) 0.74 L, Nucleated RBC % 0 10/30/19 16:55: Sodium 131 L, Potassium 3.5, Chloride 96 L, Carbon Dioxide 28.0, Anion Gap 7, BUN 18, Creatinine 1.14 H, Estim Creat Clear Calc 31.22, Est GFR (MDRD) Af Amer 60, Est GFR (MDRD) Non-Af 50 L, BUN/Creatinine Ratio 15.8, Glucose 108 H, Calcium 8.7, Troponin I < 0.015 Assessment/Plan All Active Problems (Last Reviewed 10/30/19 @ 20:33 by Reyes Saenz MD) Guaiac positive stools (Acute) Acute diarrhea (Acute) COPD exacerbation (Acute) The patient is a 74 year old F with a significant history of COPD; neurogenic bladder; neurogenic bowel; and hyperlipidemia who presents emergency department with 1 week history of progressively worsening shortness of breath; nonproductive cough and wheezing consistent with acute extubation of COPD. Acute exacerbation of COPD Impression of chest x-ray: COPD cannot definitely exclude a tiny effusions. CXR independently reviewed confirms hyperinflation with blunting of costophrenic angles. Scheduled DuoNeb Albuterol as needed Solu-Medrol 125 mg x 1 ordered then 40 mg every 8 hours. We will start patient on azithromycin. Mucinex ordered Oxygen as needed Noted to have bandemia likely from steroid use. Monitor BMP and CBC Acute gastroenteritis Reportedly was at [facility] in [place] where she was treated for acute hemorrhagic gastroenteritis and was given ciprofloxacin and Flagyl. Reportedly antibiotics was started on 10/23/2019 for 7 days. Will continue on antibiotics for 3 doses. Neighbor to bring a pillbox to help figure out the last dose of these antibiotics. Left leg swelling. Patient with a claw toes on left leg and reported neurogenic disease of left leg, chronic. Ultrasound of leg was unremarkable. Patient does not want a IVONNE hose. Elevate left leg when in bed or sitting. Tobacco abuse Patient reported that she quit smoking more than 12 months ago. However neighbors reported that patient's recently and patient took back smoking. Consider further discussion with patient. DVT prophylaxis Subcutaneous Lovenox Code Visit Inpatient E&M: 19046 Init Hosp L3
[2019-10-30] MEDS: Albuterol 2.5 MG/3 ML VIAL.NEB. INHALATION (19:26)
[2019-10-30] MEDS: MethylPREDNISolone 125 MG/2 ML Vial IV (21:49)
[2019-10-30] MEDS: guaiFENesin 1,200 MG Tablet 1200 MG PO (21:49)
[2019-10-30] MEDS: 0.9% Saline Lock 10 ML Syringe IV (21:49)
[2019-10-30] MEDS: traZODone 50 MG Tablet PO (21:50)
[2019-10-30] MEDS: Gabapentin 600 MG Tablet PO (21:50)
[2019-10-30] MEDS: Ciprofloxacin 500 MG Tablet PO (21:50)
[2019-10-30] MEDS: Atorvastatin Calcium 10 MG Tablet PO (21:50)
[2019-10-30] MEDS: metroNIDAZOLE 500 MG Tablet PO (21:50)
[2019-10-30] MEDS: Acetaminophen 325 MG Tablet 650 MG PO (21:52)
[2019-10-30] MEDS: Ondansetron 4 MG/2 ML Vial IV (22:29)
[2019-10-31] VITALS (10 sets, daily range): BP systolic 128–154; BP diastolic 53–87; PULSE 66–88; RESP 16–20; TEMP 36.5–36.8; O2SAT 94–97
[2019-10-31] MEDS: Ipratropium/Albuterol Sulfate 3 ML AMPUL.NEB INHALATION ×5 (03:50→18:39)
[2019-10-31] MEDS: 0.9% Saline Lock 10 ML Syringe IV ×3 (05:51→22:56)
[2019-10-31 06:05] LABS: Absolute Lymphocyte Count 0.14 X10^3/uL (0.83-4.51); Absolute Neutrophil Count 5.8 X10^3/uL (2.0-7.7); Hematocrit 36.9 % (37-47); Hemoglobin 11.9 g/dL (12.0-15.0); Lymphocyte # 0.14 X10^3/ul (4.0); Lymphocyte % 2.3 % (19-41); Mean Corp Hgb Conc 32.2 g/dL (32-36); Mean Corpuscular Hgb 31.7 pg (27.0-32.0); Mean Corpuscular Volume 98.4 fL (81-99); Mean Platelet Vol. 9.2 fl (6.2-12.0); Monocyte# 0.04 X10^3/uL; Monocyte% 0.7 % (0-10); NRBC Flagged by Analyzer 0 % (0-5); Neutrophil % 96.5 % (47-70); POSITIVE DIFFERENTIAL YES; POSITIVE MORPHOLOGY YES; Platelet Count 262 K/mm3 (150-450); RBC Distribution Width SD 46.9 fl (35.1-43.9); Red Blood Count 3.75 M/mm3 (4.2-5.4)
[2019-10-31 06:07] LABS: Differential Indicated SCAN CRITERIA MET
[2019-10-31 06:23] LABS: Anion Gap 4 (5-15); BUN 19 mg/dL (7-18); BUN/Creat Ratio 19.1 RATIO (10-20); Calcium,Total 7.7 mg/dL (8.5-10.1); Chloride 97 mmol/L (98-107); Creatinine, Serum 0.99 mg/dL (0.55-1.02); EST Glomerular Filtration Rate 58 mL/min (>60); Est Glom Filt Rate - Afr Amer 70 mL/min (>60); Estimated Creatinine Clearance 35.07 ml/min; Glucose 130 mg/dL (74-106); Potassium 4.5 mmol/L (3.5-5.1); Sodium Level 130 mmol/L (136-145)
--- NOTE | 2019-10-31 08:33 | PCM.PN.HOSP ---
Reason for Visit: COPD Subjective: Patient is a 74-year-old lady with past medical history single for COPD admitted with progressive shortness of breath Objective: GENERAL: cooperative HEENT: Atraumatic; EYES; Anicteric, Normal Conjunctiva NECK; supple, normal thyroid, RESPIRATORY: Diminished to auscultation CARDIOVASCULAR: Regular S1 S2, GI: soft, normoactive bowel sounds, : No Renal angle tenderness; EXTREMITIES: No edema, no clubbing, MUSCULOSKELETAL: no muscle waisting NEURO: Awake; no lateralizing signs. SKIN: No Rash PSYCH; Flat affect Vitals/I&O's: Vital Signs Temp Pulse Resp BP Pulse Ox 98.0 F 67 18 128/53 H 95 10/31/19 03:29 10/31/19 03:50 10/31/19 03:50 10/31/19 03:29 10/31/19 03:29 Oxygen Flow Rate (L/min) 2 Oxygen Delivery Method Nasal Cannula Weight: 43.9 kg Body Mass Index (BMI) 16.1 Intake and Output for Last 24 Hours 10/29/19 10/30/19 10/31/19 23:59 23:59 23:59 Intake Total 255 / 455 431 / 431 Balance 255 / 455 431 / 431 Laboratory Results 10/30/19 16:55: WBC 11.0, RBC 4.53, Hgb 14.6, Hct 44.5, MCV 98.2, MCH 32.2 H, MCHC 32.8, RDW Std Deviation 47.0 H, RDW Coeff of Ashu 13.2, Plt Count 315, MPV 9.2, Immature Gran % (Auto) 1.000 H, Neut % (Auto) 85.2 H, Lymph % (Auto) 6.7 L, Park % (Auto) 6.6, Eos % (Auto) 0.4, Baso % (Auto) 0.1, Absolute Neuts (auto) 9.4 H, Absolute Lymphs (auto) 0.74 L, Nucleated RBC % 0 10/30/19 16:55: Sodium 131 L, Potassium 3.5, Chloride 96 L, Carbon Dioxide 28.0, Anion Gap 7, BUN 18, Creatinine 1.14 H, Estim Creat Clear Calc 31.22, Est GFR (MDRD) Af Amer 60, Est GFR (MDRD) Non-Af 50 L, BUN/Creatinine Ratio 15.8, Glucose 108 H, Calcium 8.7, Troponin I < 0.015 10/31/19 05:34: WBC 6.0, RBC 3.75 L, Hgb 11.9 L, Hct 36.9 L, MCV 98.4, MCH 31.7, MCHC 32.2, RDW Std Deviation 46.9 H, RDW Coeff of Ashu 13.0, Plt Count 262, MPV 9.2, Immature Gran % (Auto) 0.500, Neut % (Auto) 96.5 H, Lymph % (Auto) 2.3 L, Park % (Auto) 0.7, Eos % (Auto) 0.0, Baso % (Auto) 0.0, Absolute Neuts (auto) 5.8, Absolute Lymphs (auto) 0.14 L, Nucleated RBC % 0 10/31/19 05:34: Sodium 130 L, Potassium 4.5, Chloride 97 L, Carbon Dioxide 29.0, Anion Gap 4 L, BUN 19 H, Creatinine 0.99, Estim Creat Clear Calc 35.07, Est GFR (MDRD) Af Amer 70, Est GFR (MDRD) Non-Af 58 L, BUN/Creatinine Ratio 19.1, Glucose 130 H, Calcium 7.7 L Current Medications Acetaminophen (Tylenol) 650 mg PO Q6H PRN PRN PRN Reason: Pain Score 1-10/Temp > 100.7 F Last Admin: 10/30/19 21:52 Dose: 650 mg Documented by: Albuterol Sulfate (Ventolin Aerosols) 2.5 mg INHALATION Q2H PRN PRN PRN Reason: Shortness of Breath/Wheezing Albuterol/Ipratropium (Duoneb) 3 ml INHALATION Q4H.RT [facility] Last Admin: 10/31/19 07:42 Dose: 3 ml Documented by: Atorvastatin Calcium (Lipitor) 10 mg PO QHS [facility] Last Admin: 10/30/19 21:50 Dose: 10 mg Documented by: Ciprofloxacin HCl (Cipro) 500 mg PO BID [facility] Stop: 10/31/19 22:01 Last Admin: 10/30/19 21:50 Dose: 500 mg Documented by: [facility] Enoxaparin Sodium (Lovenox) 40 mg SC DAILY [facility] Famotidine (Pepcid) 20 mg PO DAILY [facility] Gabapentin (Neurontin) 600 mg PO QHS [facility] Last Admin: 10/30/19 21:50 Dose: 600 mg Documented by: Glucagon () 1 mg IM .X1 PRN PRN Reason: Hypoglycemia Guaifenesin (Mucinex) 1,200 mg PO BID [facility] Last Admin: 10/30/19 21:49 Dose: 1,200 mg Documented by: Azithromycin 500 mg/ Dextrose 255 mls @ 250 mls/hr IV Q24H [facility] Stop: 11/01/19 23:02 Last Infusion: 10/30/19 22:51 Dose: Infused Documented by: Dextrose (Dextrose 10%-Water) 250 mls @ 999 mls/hr IV .Q16M PRN; Protocol PRN Reason: HYPOGLYCEMIA Sodium Chloride () 250 mls @ 15 mls/hr IV .[id number] PRN PRN Reason: Saline Flush Last Infusion: 10/31/19 03:28 Dose: 0 mls/hr Documented by: Sodium Chloride () 250 mls @ 15 mls/hr IV .[id number] PRN PRN Reason: Additional IVPB Infusion Methylprednisolone (Solu-Medrol) 40 mg IV Q8 [facility] Last Admin: 10/31/19 05:51 Dose: 40 mg Documented by: Metronidazole (Flagyl) 500 mg PO BID [facility] Stop: 10/31/19 22:01 Last Admin: 10/30/19 21:50 Dose: 500 mg Documented by: Nutritional Formula (Lactose Free) (Ensure Enlive) 120 ml PO 4X/DAY [facility] Ondansetron HCl (Zofran) 4 mg IV Q8H PRN PRN PRN Reason: NAUSEA/VOMITING Last Admin: 10/30/19 22:29 Dose: 4 mg Documented by: Sodium Chloride () 10 - 40 ml IV UD PRN PRN Reason: SALINE FLUSH Last Admin: 10/31/19 05:51 Dose: 10 ml Documented by: Trazodone HCl (Desyrel) 50 mg PO QHS [facility] Last Admin: 10/30/19 21:50 Dose: 50 mg Documented by: Medical Necessity - Tobacco Use Smoking Status: Former smoker Tobacco Use: Cigarettes Assessment/Plan All Active Problems (Last Reviewed 10/30/19 @ 20:43 by Reyes Saenz MD) Guaiac positive stools (Acute) Acute diarrhea (Acute) COPD exacerbation (Acute) Patient is a 74-year-old lady with past medical history single for COPD admitted with progressive shortness of breath 1. COPD with acute exacerbation ?Admitted to regular nursing floor managed with systemic steroid, antibiotics, aerosol treatment and on oxygen titrated to keep saturation greater than 90 2. Acute gastroenteritis ?Patient was apparently treated recently at [facility] for hemorrhagic gastroenteritis with Cipro and Flagyl patient has 2 more doses left do plan for patient to complete therapy 3. Dyslipidemia ~patient is on statin therapy, continued at home dose 4. Tobacco dependence ~counseled on cessation, offered nicotine patch for tobacco cravings 5. 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 DVT prophylaxis ?Lovenox Active Medications Acetaminophen (Tylenol) 650 mg PO Q6H PRN PRN PRN Reason: Pain Score 1-10/Temp > 100.7 F Last Admin: 10/30/19 21:52 Dose: 650 mg Documented by: Albuterol Sulfate (Ventolin Aerosols) 2.5 mg INHALATION Q2H PRN PRN PRN Reason: Shortness of Breath/Wheezing Albuterol/Ipratropium (Duoneb) 3 ml INHALATION Q4H.RT [facility] Last Admin: 10/31/19 07:42 Dose: 3 ml Documented by: Atorvastatin Calcium (Lipitor) 10 mg PO QHS [facility] Last Admin: 10/30/19 21:50 Dose: 10 mg Documented by: Ciprofloxacin HCl (Cipro) 500 mg PO BID [facility] Stop: 10/31/19 22:01 Last Admin: 10/30/19 21:50 Dose: 500 mg Documented by: Diclofenac [facility]) [facility] Enoxaparin Sodium (Lovenox) 40 mg SC DAILY [facility] Famotidine (Pepcid) 20 mg PO DAILY [facility] Gabapentin (Neurontin) 600 mg PO QHS [facility] Last Admin: 10/30/19 21:50 Dose: 600 mg Documented by: Glucagon () 1 mg IM .X1 PRN PRN Reason: Hypoglycemia Guaifenesin (Mucinex) 1,200 mg PO BID [facility] Last Admin: 10/30/19 21:49 Dose: 1,200 mg Documented by: Azithromycin 500 mg/ Dextrose 255 mls @ 250 mls/hr IV Q24H [facility] Stop: 11/01/19 23:02 Last Infusion: 10/30/19 22:51 Dose: Infused Documented by: Dextrose (Dextrose 10%-Water) 250 mls @ 999 mls/hr IV .Q16M PRN; Protocol PRN Reason: HYPOGLYCEMIA Sodium Chloride () 250 mls @ 15 mls/hr IV .[id number] PRN PRN Reason: Saline Flush Last Infusion: 10/31/19 03:28 Dose: 0 mls/hr Documented by: Sodium Chloride () 250 mls @ 15 mls/hr IV .[id number] PRN PRN Reason: Additional IVPB Infusion Methylprednisolone (Solu-Medrol) 40 mg IV Q8 [facility] Last Admin: 10/31/19 05:51 Dose: 40 mg Documented by: Metronidazole (Flagyl) 500 mg PO BID [facility] Stop: 10/31/19 22:01 Last Admin: 10/30/19 21:50 Dose: 500 mg Documented by: Nutritional Formula (Lactose Free) (Ensure Enlive) 120 ml PO 4X/DAY [facility] Ondansetron HCl (Zofran) 4 mg IV Q8H PRN PRN PRN Reason: NAUSEA/VOMITING Last Admin: 10/30/19 22:29 Dose: 4 mg Documented by: Sodium Chloride () 10 - 40 ml IV UD PRN PRN Reason: SALINE FLUSH Last Admin: 10/31/19 05:51 Dose: 10 ml Documented by: Trazodone HCl (Desyrel) 50 mg PO QHS [facility] Last Admin: 10/30/19 21:50 Dose: 50 mg Documented by: Clinical Impression(s) from Imaging Studies Chest X-Ray 10/30/19 18:00 IMPRESSION: COPD. Cannot definitively exclude tiny effusions Electronically Signed: Matt Contreras MD at 18:33 EST , Service support , Venous Duplex 10/30/19 18:00 IMPRESSION: Normal venous Doppler ultrasound of the lower extremity. Electronically Signed: Matt Contreras MD at 19:12 EST , Service support , Code Visit Inpatient E&M: 85427 [facility] Hosp L2
[2019-10-31] MEDS: guaiFENesin 1,200 MG Tablet 1200 MG PO ×2 (09:57→22:55)
[2019-10-31] MEDS: Ciprofloxacin 500 MG Tablet PO ×2 (09:57→22:54)
[2019-10-31] MEDS: Diclofenac 75 MG Tablet PO ×2 (09:57→18:07)
[2019-10-31] MEDS: Enoxaparin 40 MG/0.4 ML Syringe SC (09:57)
[2019-10-31] MEDS: Famotidine 20 MG Tablet PO (09:57)
[2019-10-31] MEDS: metroNIDAZOLE 500 MG Tablet PO ×2 (09:58→22:55)
--- NOTE | 2019-10-31 11:05 | CASEMGMT ---
RN CM Face to Face with patient for initial transition planning/care coordination assessment. RN CM introduced self and role at [facility]. Patient lying in bed, alert and oriented. Patient willing to participate in assessment and is able to answer all questions appropriately. Care providers, pharmacy, and demographics verified. Patient wishes to discharge home, denies need for home health at this time. Patient states she has no further needs or concerns at this time. CM to follow for discharge planning needs that may arise. PCP: Kobi Specialists: None [facility]erred [facility]: [facility] Pres[facility] Benefit: yes Living Will/HPOA: none LNOK: sons Living Arrangements: Patient lives alone in 2 story home. Patient is independent and is able to ambulate stairs. Transportation: self, friend DME/HHC: Patient has nebulizer at home. Patient denies need for additional DME. Patient denies need for HHC and is not home bound Disposition Plan: Patient to discharge home with family support and follow-up plans in place. Shira DELEON, RN, CM
[2019-10-31] MEDS: Acetaminophen 325 MG Tablet 650 MG PO (18:30)
[2019-10-31] MEDS: Gabapentin 600 MG Tablet PO (22:55)
[2019-10-31] MEDS: Atorvastatin Calcium 10 MG Tablet PO (22:55)
[2019-10-31] MEDS: traZODone 50 MG Tablet PO (22:55)
--- NOTE | 2019-10-31 23:56 | NURSING ---
Asked pt if she still wanted her Tylenol. She denies need at this time.
[2019-11-01] VITALS (10 sets, daily range): BP systolic 150–157; BP diastolic 70–79; PULSE 67–81; RESP 16–21; TEMP 36.4–36.9; O2SAT 87–99
[2019-11-01] MEDS: 0.9% Saline Lock 10 ML Syringe IV ×3 (04:08→14:13)
[2019-11-01] MEDS: Ipratropium/Albuterol Sulfate 3 ML AMPUL.NEB INHALATION ×3 (07:12→15:22)
[2019-11-01] MEDS: Diclofenac 75 MG Tablet PO (07:34)
[2019-11-01 08:45] LABS: Absolute Lymphocyte Count 0.19 X10^3/uL (0.83-4.51); Absolute Neutrophil Count 9.6 X10^3/uL (2.0-7.7); Hematocrit 37.5 % (37-47); Hemoglobin 12.4 g/dL (12.0-15.0); Lymphocyte # 0.19 X10^3/ul (4.0); Lymphocyte % 1.9 % (19-41); Mean Corp Hgb Conc 33.1 g/dL (32-36); Mean Corpuscular Hgb 31.9 pg (27.0-32.0); Mean Corpuscular Volume 96.4 fL (81-99); Mean Platelet Vol. 9.3 fl (6.2-12.0); Monocyte# 0.13 X10^3/uL; Monocyte% 1.3 % (0-10); NRBC Flagged by Analyzer 0 % (0-5); Neutrophil # 9.61 X10^3/uL (2.7-7.7); Neutrophil % 96.5 % (47-70); POSITIVE DIFFERENTIAL YES; Platelet Count 274 K/mm3 (150-450); RBC Distribution Width CV 12.9 % (11.6-14.6); RBC Distribution Width SD 45.7 fl (35.1-43.9); Red Blood Count 3.89 M/mm3 (4.2-5.4)
[2019-11-01 08:50] LABS: Differential Indicated SCAN CRITERIA MET
--- NOTE | 2019-11-01 08:52 | DCINST_ITS ---
You will use the following diet at home:: No restrictions Discharge Activity: Return to Normal Activity Allergies/Adverse Reactions: Allergies Sulfa (Sulfonamide Antibiotics) Allergy (Verified 10/30/19 16:34) FACE GETS RED AND ITCHY codeine Adverse Reaction (Verified 10/30/19 16:34) Nausea Medications to take at Discharge Albuterol Sulfate [Ventolin Hfa] 1 - 2 puff INHALATION Q4H PRN 11/26/17 Atorvastatin Calcium [Lipitor] 10 mg PO QHS 11/26/17 Diclofenac [Voltaren] 75 mg PO BIDCM 11/26/17 Gabapentin [Neurontin] 600 mg PO QHS 11/26/17 Albuterol Aerosols [Ventolin Aerosols] 2.5 mg INHALATION Q2H PRN PRN #1 box 11/28/17 Fluticasone/Umeclidin/Vilanter [Trelegy Ellipta 100-62.5-25] 1 puff IH DAILY 10/16/18 Ciprofloxacin [Cipro] 500 mg PO BID 10/26/19 Metronidazole [Flagyl] 500 mg PO BID 10/26/19 Prednisone 10 mg PO UD #33 tab 10/26/19 Famotidine [Pepcid] 20 mg PO DAILY 10/30/19 Trazodone HCl 50 mg PO QHS 10/30/19 Primary Care Physician: Matt Peace MD [Primary Care Provider] - Please follow up with your Primary Care Physician in: in 5-7 days Test Results: Test results from this visit will be discussed in further detail at your follow- up appointment, if applicable. Proposed Discharge Date: 11/01/19
--- NOTE | 2019-11-01 08:53 | PCM.DC.SUM ---
Discharge Date and Diagnosis Date of Admission: 10/30/19 Date of Discharge: 11/01/19 - Primary Discharge Diagnosis COPD with acute exacerbation - Secondary Discharge Diagnosis Chronic Problems (Last Reviewed 10/30/19 @ 20:43 by Reyes Saenz MD) Neurogenic bowel (Chronic) Neurogenic bladder (Chronic) HLD (hyperlipidemia) (Chronic) Hospital Course and Treatment Imaging Results: Clinical Impression(s) from Imaging Studies Chest X-Ray 10/30/19 18:00 IMPRESSION: COPD. Cannot definitively exclude tiny effusions Electronically Signed: Matt Contreras MD at 18:33 EST , Service support , Venous Duplex 10/30/19 18:00 IMPRESSION: Normal venous Doppler ultrasound of the lower extremity. Electronically Signed: Matt Contreras MD at 19:12 EST , Service support , Operations: None Summary of Care Provided: Patient is a 74-year-old lady with past medical history single for COPD admitted with progressive shortness of breath 1. COPD with acute exacerbation ?Admitted to regular nursing floor managed with systemic steroid, antibiotics, aerosol treatment and on oxygen titrated to keep saturation greater than 90 2. Acute gastroenteritis ?Patient was apparently treated recently at [facility] for hemorrhagic gastroenteritis with Cipro and Flagyl patient has 2 more doses left do plan for patient to complete therapy 3. Dyslipidemia ~patient is on statin therapy, continued at home dose 4. Tobacco dependence ~counseled on cessation, offered nicotine patch for tobacco cravings 5. 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 DVT prophylaxis ?Lovenox Objective: GENERAL: cooperative HEENT: Atraumatic; EYES; Anicteric, Normal Conjunctiva NECK; supple, normal thyroid, RESPIRATORY: Diminished to auscultation CARDIOVASCULAR: Regular S1 S2, GI: soft, normoactive bowel sounds, : No Renal angle tenderness; EXTREMITIES: No edema, no clubbing, MUSCULOSKELETAL: no muscle waisting NEURO: Awake; no lateralizing signs. SKIN: No Rash PSYCH; Flat affect - Physical Exam Vitals/I&O's: Vital Signs Temp Pulse Resp BP Pulse Ox 97.5 F L 70 21 H 157/79 H 93 11/01/19 04:11 11/01/19 07:37 11/01/19 07:20 11/01/19 04:11 11/01/19 08:28 Oxygen Flow Rate (L/min) 3 Oxygen Delivery Method Nasal Cannula Weight: 43.9 kg Body Mass Index (BMI) 16.1 Intake and Output for Last 24 Hours 10/30/19 10/31/19 11/01/19 23:59 23:59 23:59 Intake Total 255 / 455 614.33 / 614.33 171.67 / 171.67 Balance 255 / 455 614.33 / 614.33 171.67 / 171.67 Laboratory Results 11/01/19 08:00: WBC 10.0, RBC 3.89 L, Hgb 12.4, Hct 37.5, MCV 96.4, MCH 31.9, MCHC 33.1, RDW Std Deviation 45.7 H, RDW Coeff of Ashu 12.9, Plt Count 274, MPV 9.3, Immature Gran % (Auto) 0.300, Neut % (Auto) 96.5 H, Lymph % (Auto) 1.9 L, [place] % (Auto) 1.3, Eos % (Auto) 0.0, Baso % (Auto) 0.0, Absolute Neuts (auto) 9.6 H, Absolute Lymphs (auto) 0.19 L, Nucleated RBC % 0 11/01/19 08:00: Sodium Pending, Potassium Pending, Chloride Pending, Carbon Dioxide Pending, Anion Gap Pending, BUN Pending, Creatinine Pending, Est GFR (MDRD) Af Amer Pending, Est GFR (MDRD) Non-Af Pending, BUN/Creatinine Ratio Pending, Glucose Pending, Calcium Pending, Magnesium Pending Current Medications Acetaminophen (Tylenol) 650 mg PO Q6H PRN PRN PRN Reason: Pain Score 1-10/Temp > 100.7 F Last Admin: 10/31/19 18:30 Dose: 650 mg Documented by: Albuterol Sulfate (Ventolin Aerosols) 2.5 mg INHALATION Q2H PRN PRN PRN Reason: Shortness of Breath/Wheezing Albuterol/Ipratropium (Duoneb) 3 ml INHALATION Q4H.RT MORALES Last Admin: 11/01/19 07:12 Dose: 3 ml Documented by: Atorvastatin Calcium (Lipitor) 10 mg PO QHS [facility] Last Admin: 10/31/19 22:55 Dose: 10 mg Documented by: Diclofenac Sodium (Voltaren) 75 mg PO BIDCM [facility] Last Admin: 11/01/19 07:34 Dose: 75 mg Documented by: Enoxaparin Sodium (Lovenox) 40 mg SC DAILY [facility] Last Admin: 10/31/19 09:57 Dose: 40 mg Documented by: Famotidine (Pepcid) 20 mg PO DAILY [facility] Last Admin: 10/31/19 09:57 Dose: 20 mg Documented by: Gabapentin (Neurontin) 600 mg PO QHS [facility] Last Admin: 10/31/19 22:55 Dose: 600 mg Documented by: Glucagon () 1 mg IM .X1 PRN PRN Reason: Hypoglycemia Guaifenesin (Mucinex) 1,200 mg PO BID [facility] Last Admin: 10/31/19 22:55 Dose: 1,200 mg Documented by: Azithromycin 500 mg/ Dextrose 255 mls @ 250 mls/hr IV Q24H [facility] Stop: 11/01/19 23:02 Last Infusion: 11/01/19 00:41 Dose: Infused Documented by: Dextrose (Dextrose 10%-Water) 250 mls @ 999 mls/hr IV .Q16M PRN; Protocol PRN Reason: HYPOGLYCEMIA Sodium Chloride () 250 mls @ 15 mls/hr IV .[id number] PRN PRN Reason: Saline Flush Last Infusion: 10/31/19 03:28 Dose: 0 mls/hr Documented by: Sodium Chloride () 250 mls @ 15 mls/hr IV .[id number] PRN PRN Reason: Additional IVPB Infusion Methylprednisolone (Solu-Medrol) 40 mg IV Q8 [facility] Last Admin: 11/01/19 06:15 Dose: 40 mg Documented by: Ondansetron HCl (Zofran) 4 mg IV Q8H PRN PRN PRN Reason: NAUSEA/VOMITING Last Admin: 10/30/19 22:29 Dose: 4 mg Documented by: Sodium Chloride () 10 - 40 ml IV UD PRN PRN Reason: SALINE FLUSH Last Admin: 11/01/19 06:16 Dose: 10 ml Documented by: Trazodone HCl (Desyrel) 50 mg PO QHS [facility] Last Admin: 10/31/19 22:55 Dose: 50 mg Documented by: Discharge Diet: No Restrictions Discharge Activity: Return to Normal Activity Home Medications: Medications to take at Discharge Albuterol Sulfate [Ventolin Hfa] 1 - 2 puff INHALATION Q4H PRN 11/26/17 Atorvastatin Calcium [Lipitor] 10 mg PO QHS 11/26/17 Diclofenac [Voltaren] 75 mg PO BIDCM 11/26/17 Gabapentin [Neurontin] 600 mg PO QHS 11/26/17 Albuterol Aerosols [Ventolin Aerosols] 2.5 mg INHALATION Q2H PRN PRN #1 box 11/28/17 Fluticasone/Umeclidin/Vilanter [Trelegy Ellipta 100-62.5-25] 1 puff IH DAILY 10/16/18 Ciprofloxacin [Cipro] 500 mg PO BID 10/26/19 Metronidazole [Flagyl] 500 mg PO BID 10/26/19 Prednisone 10 mg PO UD #33 tab 10/26/19 Famotidine [Pepcid] 20 mg PO DAILY 10/30/19 Trazodone HCl 50 mg PO QHS 10/30/19 Primary Care Physician: Matt Peace MD [Primary Care Provider] - Please follow up with your Primary Care Physician in: in 5-7 days Disposition: Home Minutes spent on discharge:: 32 Patient Condition:: Stable Medical Necessity - Tobacco Use Smoking Status: Former smoker Tobacco Use: Cigarettes Meaningful Use Info Meaningful Use Diagnoses (Choose all that apply): None applicable Code Visit Inpatient E&M: 95679 Disch Hosp
[2019-11-01 09:07] LABS: Anion Gap 4 (5-15); BUN 17 mg/dL (7-18); BUN/Creat Ratio 18.7 RATIO (10-20); Calcium,Total 8.2 mg/dL (8.5-10.1); Chloride 94 mmol/L (98-107); Creatinine, Serum 0.91 mg/dL (0.55-1.02); EST Glomerular Filtration Rate 64 mL/min (>60); Est Glom Filt Rate - Afr Amer 78 mL/min (>60); Estimated Creatinine Clearance 38.16 ml/min; Glucose 128 mg/dL (74-106); Potassium 4.3 mmol/L (3.5-5.1); Sodium Level 129 mmol/L (136-145)
[2019-11-01 09:27] LABS: Pathologist Review May foll
[2019-11-01] MEDS: Enoxaparin 40 MG/0.4 ML Syringe SC (11:05)
[2019-11-01] MEDS: Famotidine 20 MG Tablet PO (11:05)
[2019-11-01] MEDS: guaiFENesin 1,200 MG Tablet 1200 MG PO (11:05)
--- NOTE | 2019-11-01 12:13 | CM.UR ---
Addendum entered by Clotilde Rodriguez 11/01/19 15:53: [place] called back asking me to fax documentation then call Sean at [phone]. Faxed and called Sean however no answer. LVM asking for a return call. After an hour, no return call. Attempted to call again and just got fast busy signal. After a few minutes of trouble--call hospital as400 operator and found out our phones were down. Called Sean on my personal cell and he asked that I fax to another number. Faxed to that number but he called back shortly stating he didn't get it. Figuring our faxes are down--he agreed to head to hospital and bead picker paperwork here. Alerted BHUMI Interiano Charge nurse and tubed the clinical up to her to give to Sean from [facility] when he arrives. Beti Rodriguez RN, CCM. Original Note: Met face to face with patient after noting they had to put her back on oxygen in past. States she had [employer] last time she went home with oxygen but would prefer to not use them again. Would like to use someone different. Spoke with [facility] answering service regarding setting up O2 at this time. States Sean will give me a call back. Beit Rodriguez RN, CCM.
[2019-11-01] MEDS: Acetaminophen 325 MG Tablet 650 MG PO (14:20)
--- NOTE | 2019-11-03 14:38 | CASEMGMT ---
BHUMI PEDRO DC PHONE CALL DC DATE: 11.03.2019 DC Disposition: 11.01.2019 Diagnosis on Discharge: COPD LACE/STRATA: 08/31 Intro role of CM to patient on phone. Pt states she is still not feeling better, is having diarrhea and feels this is from the Cipro. Pt has been taking her medications as ordered. She has not made f/u appt. BHUMI PEDRO encouraged her to make appt with Dr. Peace's office for this week and pt is agreeable. No further questions and no care improvement suggestions were given. Sammie JOSEPHN RN ACM
== END 2019-11-01 15:54 | disposition home or self-care (01) | DRG 191 ==
LOC: ED 19:27 → MS3 19:35
PROVIDERS: Admitting Provider Hospitalist; Emergency Provider Emergency Medicine; Family Provider Family Medicine; PCP Family Medicine; Referring Provider Hospitalist; Visit Provider Internal Medicine
DX: J44.1 Chronic obstructive pulmonary disease with (acute) exacerbation (principal); K59.2 Neurogenic bowel, not elsewhere classified; E22.2 Syndrome of inappropriate secretion of antidiuretic hormone; N31.9 Neuromuscular dysfunction of bladder, unspecified; E78.5 Hyperlipidemia, unspecified; F17.210 Nicotine dependence, cigarettes, uncomplicated; K52.9 Noninfective gastroenteritis and colitis, unspecified
CPT/HCPCS: 36415; 71046; 80048; 83735; 84484; 85025; 87040; 87633; 93005; 93971; 94640; 97162; 97166; 97802; 99251; 99285; J7050; A4216; G0463; J2405

== ENCOUNTER 2019-11-05 14:04 | Emergency (ER) | payer MEDICARE, OTHER, SELFPAY ==
[2019-10-30 21:01] VITALS: BMI 16.1
[2019-11-05] VITALS (7 sets, daily range): BP systolic 145–161; BP diastolic 74–83; PULSE 73–87; RESP 20–22; TEMP 36.6–36.8; O2SAT 92–99; BMI 16.2; BMI 14.9
--- NOTE | 2019-11-05 15:01 | EKG12_ITS ---
Test Reason : CP/SOB Blood Pressure : / mmHG Vent. Rate : 070 BPM Atrial Rate : 070 BPM P-R Int : 120 ms QRS Dur : 080 ms QT Int : 378 ms P-R-T Axes : 078 078 069 degrees QTc Int : 408 ms Normal sinus rhythm Biatrial enlargement Abnormal ECG Confirmed by CASEY CEJA, RICARDO ([id number]), proposal editor GABRIELLA IRAHETA ([id number]) on 11/06/2019 10:39:00 AM Referred By: Gerry Hurtado Confirmed By:ROOPA PEÑA MD
[2019-11-05] MEDS: Ipratropium/Albuterol Sulfate 3 ML AMPUL.NEB INHALATION (15:15)
[2019-11-05 15:23] LABS: Absolute Lymphocyte Count 0.26 X10^3/uL (0.83-4.51); Absolute Neutrophil Count 11.2 X10^3/uL (2.0-7.7); Differential Indicated SCAN CRITERIA MET; Hematocrit 44.6 % (37-47); Hemoglobin 14.7 g/dL (12.0-15.0); Lymphocyte # 0.26 X10^3/ul (4.0); Lymphocyte % 2.2 % (19-41); Mean Corpuscular Volume 97.2 fL (81-99); Mean Platelet Vol. 9.2 fl (6.2-12.0); Monocyte# 0.18 X10^3/uL; Monocyte% 1.5 % (0-10); NRBC Flagged by Analyzer 0 % (0-5); Neutrophil # 11.18 X10^3/uL (2.7-7.7); Neutrophil % 95.9 % (47-70); POSITIVE DIFFERENTIAL YES; Platelet Count 401 K/mm3 (150-450); RBC Distribution Width CV 12.8 % (11.6-14.6); RBC Distribution Width SD 45.7 fl (35.1-43.9); Red Blood Count 4.59 M/mm3 (4.2-5.4); White Blood Count 11.7 K/mm3 (4.4-11.0)
[2019-11-05] MEDS: Albuterol 2.5 MG/3 ML VIAL.NEB. INHALATION ×3 (15:32)
[2019-11-05 15:56] LABS: Differential Comment SCANNED
[2019-11-05 16:04] LABS: BNP,B-Type NATRIURETIC PEPTIDE 39.5 pg/mL (0-100)
--- NOTE | 2019-11-05 16:21 | ED.DCSUM_ITS ---
History of Present Illness Chief Complaint: Shortness of Breath Informant: Patient Onset: Days Context: Gradual Onset Timing: Continuous Narrative: Patient is a 74-year-old female with history of neurogenic bladder and bowel after back surgery as well as COPD presenting with worsening shortness of breath. Patient was recently admitted and then discharged from our hospital for COPD exacerbation. She tested positive for RSV. Patient was discharged home yesterday. She was discharged home on a course of prednisone. She is discharged home as well on home oxygen. She states her oxygen to 95 to 96% at home. She states that since she has been home she has been more short of breath. Is worse with exertion. She continues to cough up green phlegm. She has chills but no fever. She has no chest pain but states she does feel little sore from all of her coughing. She reports mild swelling of her legs. She denies any history of DVT or PE. She notes that she did sleep with 3 pillows last night which is abnormal for her. She normally only sleeps with one pillow. Patient has had chronic diarrhea which is unchanged. She states this is been evaluated as well but they are not doing anything for it. She has been on antibiotics for these as well. She denies any change in her diarrhea. She denies any abdominal pain or nausea/vomiting. Past Medical History - Allergies and Home Meds Allergies/Adverse Reactions: Allergies Sulfa (Sulfonamide Antibiotics) Allergy (Verified 11/05/19 14:05) FACE GETS RED AND ITCHY codeine Adverse Reaction (Verified 11/05/19 14:05) Nausea Primary Care Physician: Matt Peace MD [Primary Care Provider] - Past Medical History: - - Neurogenic bladder, neurogenic bowels, hyperlipidemia, COPD Surgical History: cholecystectomy, hysterectomy, - - spinal surgery Smoking Status: Former smoker - Family History Maternal Family History: Family History (Last Reviewed 10/30/19 @ 20:43 by Reyes Saenz MD) Father Kidney disease Sister Breast cancer Sister Cancer Family History: Reports: Heart Disease Paternal Family History: Family History (Last Reviewed 10/30/19 @ 20:43 by Reyes Saenz MD) Father Kidney disease Sister Breast cancer Sister Cancer Family History: Reports: Renal Disease Review of Systems General: Reports: Chills, Malaise. Denies: Fever, Sweats Eyes: Denies: Visual changes - bilaterally, Diplopia ENT: Denies: Rhinorrhea, Sore throat Cardiovascular: Denies: Chest pain, Palpitations, Heart racing Respiratory: Reports: Cough, Sputum, Dyspnea on exertion. Denies: Dyspnea Gastrointestinal: Reports: Diarrhea. Denies: Abdominal pain, Nausea, Vomiting, Melena, Hematochezia Genitourinary: Denies: Dysuria, Hematuria, Frequency Musculoskeletal: Denies: Back pain, Extremity Pain Skin: Denies: Rash, Wounds Neurological: Denies: Headache, Weakness, Numbness Physical Exam Vital Signs/Narrative: Vital Signs Temp Pulse Resp BP Pulse Ox 11/05/19 15:16 75 20 H 11/05/19 14:05 98.3 F 81 20 H 145/82 H 96 Inital Vital Signs reviewed: Yes General: Well developed, Cachectic, No Acute Distress Head: Normocephalic, Atraumatic Eyes: Perrl, EOMI ENT: Moist mucous membranes, No rhinorrhea, TM's clear Neck: Supple, Nontender, No lymphadenopathy, No JVD Cardiovascular: Regular rate, Regular rhythm, No murmurs Respiratory: No distress, CTA bilaterally, Chest nontender, Rhonchi - Left base, Wheezing - Diffuse. Negative for: Decreased Air Movement, Retractions Abdomen: Soft, Nontender, Nondistended, Normal bowel sounds Back: Nontender, Normal Inspection Extremities: Nontender, No edema. Negative for: Edema, Calf Tenderness Skin: Normal color, No rash Neurological: Alert, Oriented x3, Cranial nerves II-XII grossly intact, Normal Strength, Normal Sensation Psychological: Normal affect, Normal Mood Diagnostic/Tx/Re-eval Chest X-Ray - ED: 2 View, Read by ED Physician, Read by Radiologist, No Acute Disease Clinical Impression(s) from Imaging Studies Chest X-Ray 11/05/19 16:28 IMPRESSION: Severe hyperexpansion and peripheral vessel attenuation consistent with emphysema without new consolidation, focal atelectasis, pleural effusion or cardiomegaly. Electronically Signed: Britney Underwood MD at 16:49 EST , Service support , Laboratory Data 11/05/19 11/05/19 11/05/19 14:45 14:45 14:45 WBC 11.7 H RBC 4.59 Hgb 14.7 Hct 44.6 MCV 97.2 MCH 32.0 MCHC 33.0 RDW Std Deviation 45.7 H RDW Coeff of Ashu 12.8 Plt Count 401 MPV 9.2 Immature Gran % (Auto) 0.400 Neut % (Auto) 95.9 H Lymph % (Auto) 2.2 L [place] % (Auto) 1.5 Eos % (Auto) 0.0 Baso % (Auto) 0.0 Absolute Neuts (auto) 11.2 H Absolute Lymphs (auto) 0.26 L Nucleated RBC % 0 Differential Comment SCANNED D-Dimer Quant (PE/DVT) Cancelled Sodium Cancelled Potassium Cancelled Chloride Cancelled Carbon Dioxide Cancelled Anion Gap Cancelled BUN Cancelled Creatinine Cancelled Estim Creat Clear Calc Cancelled Est GFR (MDRD) Af Amer Cancelled Est GFR (MDRD) Non-Af Cancelled BUN/Creatinine Ratio Cancelled Glucose Cancelled Calcium Cancelled Troponin I Cancelled B-Natriuretic Peptide 11/05/19 11/05/19 11/05/19 14:45 16:22 16:22 WBC RBC Hgb Hct MCV MCH MCHC RDW Std Deviation RDW Coeff of Ashu Plt Count MPV Immature Gran % (Auto) Neut % (Auto) Lymph % (Auto) [place] % (Auto) Eos % (Auto) Baso % (Auto) Absolute Neuts (auto) Absolute Lymphs (auto) Nucleated RBC % Differential Comment D-Dimer Quant (PE/DVT) 0.89 H* Sodium 131 L Potassium 4.3 Chloride 94 L Carbon Dioxide 32.0 Anion Gap 5 BUN 21 H Creatinine 0.98 Estim Creat Clear Calc 35.88 Est GFR (MDRD) Af Amer 72 Est GFR (MDRD) Non-Af 59 L BUN/Creatinine Ratio 21.5 H Glucose 130 H Calcium 8.9 Troponin I < 0.015 B-Natriuretic Peptide 39.5 - Rhythm Strip Rhythm Strip: Sinus Rhythm Rate: 70 Ectopy: None - EKG Initial EKG Interpretation: Sinus Rhythm, - - Normal sinus rhythm at a rate of 70 Right atrial enlargement Normal MD interval, QRS duration and QTC Normal ST segments - Medical Decision Making Patient evaluated for worsening shortness of breath. She was discharged to the hospital yesterday. She is wheezing. She received a breathing treatment prior to arrival. She is given additional blood in the emergency room. Patient is otherwise well-appearing. She is on room air and has a normal pulse ox. Respiratory panel from 5 days ago tested positive for RSV. This is likely the cause of her respiratory symptoms that have continued. However with her recent hospitalization and report of leg swelling I did check a d-dimer. This is elevated even for her age adjusted so a CTA is obtained. Cardiac work-up including proBNP is otherwise negative. CBC and BMP are otherwise at her baseline. CTA is negative for any acute pulmonary pathology especially PE, ambulate patient to make sure she does not desaturate. If she tolerates this well she will be discharged home. Patient is ambulating after approximately 10 steps her O2 saturation dropped to 78% and she becomes dizzy and lightheaded. Because of this she will require admission for further respiratory monitoring and treatment. She is agreeable with plan. Discussed with Dr. Hurtado who is agreeable with this plan. She is admitted to [facility] floor in stable condition. ED Disposition - Plan for ED Patient: Disposition: Acute Care Hospital [facility] Diagnosis: RSV infection, Hypoxia, COPD exacerbation Referrals: Matt Peace MD [Primary Care Provider] - Additional Instructions: You have a viral infection that is causing your cough. Please continue taking the prednisone prescribed.
--- NOTE | 2019-11-05 16:28 | RAD_ITS ---
STUDY: X-RAY CHEST REASON FOR EXAM: Female, 74 years old. DYSPNEA/SOB TECHNIQUE: 2 views COMPARISON: Prior chest radiograph of October 30, 2019 FINDINGS: Severe hyperexpansion and peripheral vessel attenuation consistent with COPD. Negative for new consolidation, focal atelectasis or pleural effusion. Normal size heart. Normal mediastinum and marco antonio. Normal visualized pulmonary arteries. There is atherosclerotic calcification of the aortic arch with tortuosity. Mild degenerative changes of the thoracic spine. Cervical fusion hardware included in the [id number]. Normal visualized ribs, clavicles, and shoulders. There is no demonstrated abnormality of the visualized soft tissue structures of the upper abdomen. RAD/Chest PA and Lateral IMPRESSION: Severe hyperexpansion and peripheral vessel attenuation consistent with emphysema without new consolidation, focal atelectasis, pleural effusion or cardiomegaly. Electronically Signed: Britney Underwood MD at 16:49 EST , Service support ,
[2019-11-05 16:46] LABS: D-Dimer Quantitative (DVT/PE) 0.89 FEU/ug/m (0.27-0.49)
[2019-11-05 16:54] LABS: Anion Gap 5 (5-15); BUN 21 mg/dL (7-18); BUN/Creat Ratio 21.5 RATIO (10-20); Calcium,Total 8.9 mg/dL (8.5-10.1); Chloride 94 mmol/L (98-107); Creatinine, Serum 0.98 mg/dL (0.55-1.02); EST Glomerular Filtration Rate 59 mL/min (>60); Est Glom Filt Rate - Afr Amer 72 mL/min (>60); Estimated Creatinine Clearance 35.88 ml/min; Glucose 130 mg/dL (74-106); Potassium 4.3 mmol/L (3.5-5.1); Sodium Level 131 mmol/L (136-145)
--- NOTE | 2019-11-05 16:59 | CT_ITS ---
STUDY: CTA CHEST REASON FOR EXAM: Female, 74 years old. SOB. COPD RADIATION DOSAGE (If Supplied By Facility): CTDIvol = ( 3.89 ) mGy, DLP = ( 119.56 ) mGycm TECHNIQUE: The examination was performed with the intravenous administration of 75 ML ISOVUE 370. Post-processing of the angiographic images was performed, with multiplanar reformation and 3D reconstruction. Individualized dose optimization techniques were used for this CT. COMPARISON: PA and lateral chest November 05, 2019. Prior chest CT exam of November 12, 2008. FINDINGS: Normal enhancement of the main pulmonary artery and right and left pulmonary arteries. Normal enhancement of the bilateral peripheral pulmonary arteries. There is no demonstrated pulmonary embolism. There is atherosclerotic calcification of the aortic arch with tortuosity. There is no demonstrated aortic dissection. Small heart size. Negative for pericardial effusion or coronary calcification. Normal mediastinum. Normal hilar regions. Hyperexpansion and severe diffuse emphysematous changes. Small new spiculated infiltrates in the apical region of the left lung, apical and axillary portion of the right upper lobe. Generalized cachexia. There are degenerative changes of thoracic spine. Hypodense lesions of the left liver typical of cysts. CT/CTA Chest W/WO Contrast IMPRESSION: Negative for pulmonary embolus. Atherosclerotic changes of the aorta without aneurysm or dissection. Small cardiac size without pericardial effusion or substantial coronary calcifications. Severe diffuse hyperexpansion and emphysematous changes. Diffuse bronchial thickening. Small new spiculated infiltrates in the apical region of the left upper lobe and apical and axillary portions of the right upper lobe. Otherwise negative for major consolidation, focal atelectasis or a substantial pleural effusion. Electronically Signed: Britney Underwood MD at 17:46 EST , Service support ,
--- NOTE | 2019-11-05 18:21 | CON.PCM_ITS ---
Reason for Consult Date of Consultation: 11/05/19 Reason for Consultation: hypoxia History of Present Illness: The patient is a 74 year old F who states she was discharged yesterday (it was actually the 4th) presents with shortness of breath. She is ok at rest, but experiences shortness of breath with activity. She says she does not use oxygen at home because she doesn't need it. Presents to ED and she underwent a work up for PE, that was negative. She was going to be discharged, but when ambulated, her pulse ox dropped into the 70s. At rest she has been in the 90s. We were asked to work the patient up for the hypoxia as an admission.[] Past Medical History Past Medical History (Chronic Problems): Chronic Problems (Last Reviewed 10/30/19 @ 20:43 by Reyes Saenz MD) Neurogenic bowel (Chronic) Neurogenic bladder (Chronic) HLD (hyperlipidemia) (Chronic) Medical History: Medical History (Last Reviewed 11/05/19 @ 18:23 by Gerry Hurtado DO) Guaiac positive stools (Acute) R19.5 COPD (chronic obstructive pulmonary disease) J44.9 Allergies Sulfa (Sulfonamide Antibiotics) Allergy (Verified 11/05/19 14:05) FACE GETS RED AND ITCHY codeine Adverse Reaction (Verified 11/05/19 14:05) Nausea Home Medications: Ambulatory Orders Medication Instructions Recorded Albuterol Sulfate [Ventolin Hfa] 1 - 2 puff INHALATION Q4H PRN 11/26/17 Atorvastatin Calcium [Lipitor] 10 mg PO QHS 11/26/17 Diclofenac [Voltaren] 75 mg PO BIDCM 11/26/17 Gabapentin [Neurontin] 600 mg PO QHS 11/26/17 Albuterol Aerosols [Ventolin 2.5 mg INHALATION Q2H PRN PRN #1 11/28/17 Aerosols] box Fluticasone/Umeclidin/Vilanter 1 puff IH DAILY 10/16/18 [Trelegy Ellipta 100-62.5-25] Famotidine [Pepcid] 20 mg PO QHS 10/30/19 Trazodone HCl 50 mg PO QHS 10/30/19 Prednisone See Taper PO UD 11/05/19 Surgical History: Surgical History (Last Reviewed 11/05/19 @ 18:24 by Gerry Hurtado DO) History of back surgery Z98.890 History of breast lump removal Z98.890 History of hysterectomy Z90.710 Surgical History: cholecystectomy, hysterectomy, - - spinal surgery Psychiatric History: No pertinent psych hx 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 Smoking Status: Former smoker - *Family History Maternal Family History: Family History (Last Reviewed 11/05/19 @ 18:24 by Gerry Hurtado DO) Father Kidney disease Sister Breast cancer Sister Cancer History Items: Heart Disease Paternal Family History: Family History (Last Reviewed 11/05/19 @ 18:24 by Gerry Hurtado DO) Father Kidney disease Sister Breast cancer Sister Cancer History Items: Renal Disease Review of Systems Constitutional: Denies: Anorexia, Chills, Fever Eyes: Denies: Blurred vision, Double vision HEENT: Denies: Difficulty Hearing, Difficulty Swallowing Cardiovascular: Denies: Chest Pain, Palpitations Respiratory: Reports: Cough, Shortness of Breath, Shortness of breath upon exertion. Denies: Sputum production Gastrointestinal: Reports: - - green-black stools.. Denies: Abdominal Pain, Nausea, Vomiting Genitourinary: Denies: Dysuria Musculoskeletal: Denies: Joint Pain, Joint Tenderness Skin: Denies: Rash, Wounds Neurological: Denies: Numbness, Tingling, Focal weakness Psychiatric: Denies: Anxiety, Depression Hematologic/ Lymphatic: Denies: Easy Bruising, Easy Bleeding, Hx of blood clot Comment: Review systems otherwise negative except for as mentioned above and in HPI. Patient Problems: Active and Suspected Problems (Last Reviewed 10/30/19 @ 20:43 by Reyes Saenz MD) RSV infection (Acute) Hypoxia (Acute) COPD exacerbation (Acute) - Physical Exam Vitals/I&O's: Vital Signs Temp Pulse Resp BP Pulse Ox 36.8 C 82 22 H 156/83 H 97 11/05/19 14:05 11/05/19 18:04 11/05/19 18:04 11/05/19 18:04 11/05/19 18:04 Oxygen Flow Rate (L/min) 2 Oxygen Delivery Method Nasal Cannula Weight: 44.452 kg Body Mass Index (BMI) 16.2 General: Alert, Cooperative, - - Appears older than stated age HEENT: Atraumatic, Normocephalic Oral: Moist Mucosa, No Gingival or Mucosal Lesions/ Ulcerations Neck: No Nodes, Trachea Midline Lungs: Diminished, Wheezes - Faint Cardiovascular: Regular rate, Regular Rhythm, Normal S1, Normal S2, No murmurs Abdomen: Bowel Sounds Present, Soft, Non Tender, Non-Distended, No Hepato- splenomegaly Extremities: No edema, No Calf Tenderness Skin: No rashes, No breakdown Musculoskeletal: Cachexia, Muscle Wasting Neurological: Deep Tendon Reflexes 2+/4 and Symmetrical, - - No clonus. Psych/Mental Status: Appropriate, Flat Affect Laboratory Results 11/05/19 14:45: WBC 11.7 H, RBC 4.59, Hgb 14.7, Hct 44.6, MCV 97.2, MCH 32.0, MCHC 33.0, RDW Std Deviation 45.7 H, RDW Coeff of Ashu 12.8, Plt Count 401, MPV 9.2, Immature Gran % (Auto) 0.400, Neut % (Auto) 95.9 H, Lymph % (Auto) 2.2 L, [place] % (Auto) 1.5, Eos % (Auto) 0.0, Baso % (Auto) 0.0, Absolute Neuts (auto) 11.2 H, Absolute Lymphs (auto) 0.26 L, Nucleated RBC % 0, Differential Comment SCANNED 11/05/19 14:45: D-Dimer Quant (PE/DVT) Cancelled 11/05/19 14:45: Sodium Cancelled, Potassium Cancelled, Chloride Cancelled, Carbon Dioxide Cancelled, Anion Gap Cancelled, BUN Cancelled, Creatinine Cancelled, Estim Creat Clear Calc Cancelled, Est GFR (MDRD) Af Amer Cancelled, Est GFR (MDRD) Non-Af Cancelled, BUN/Creatinine Ratio Cancelled, Glucose Cancelled, Calcium Cancelled, Troponin I Cancelled 11/05/19 14:45: B-Natriuretic Peptide 39.5 11/05/19 16:22: D-Dimer Quant (PE/DVT) 0.89 H* 11/05/19 16:22: Sodium 131 L, Potassium 4.3, Chloride 94 L, Carbon Dioxide 32.0, Anion Gap 5, BUN 21 H, Creatinine 0.98, Estim Creat Clear Calc 35.88, Est GFR (MDRD) Af Amer 72, Est GFR (MDRD) Non-Af 59 L, BUN/Creatinine Ratio 21.5 H, G lucose 130 H, Calcium 8.9, Troponin I < 0.015 Assessment/Plan All Active Problems (Last Reviewed 10/30/19 @ 20:43 by Reyes Saenz MD) RSV infection (Acute) Hypoxia (Acute) Guaiac positive stools (Acute) Acute diarrhea (Acute) COPD exacerbation (Acute) 1. Hypoxia * Looking back at the patient's recent records, patient was noted to be actually 87% on room air at rest so currently her status is improved and she is in the mid 90s without oxygen at rest. Patient was set up with oxygen through [facility]. Patient has tanks as well as condenser and I verify that with the patient. Patient does not want to be admitted. I told the patient that she needs to be on her oxygen and if so and she can go home. Patient will utilize her oxygen as previously instructed. Patient was also on a prednisone taper which she will continue as well as her bronchodilators. 2. Dark stools. Currently hemoglobin is stable. Recommend follow-up with gastroenterology or general surgery as outpatient 3. COPD: Not in exacerbation at this time. Continue with the bronchodilators and prednisone taper. Feel the patient can go home as she already has oxygen and all her medications. Patient just needs instructions about using her oxygen. Patient simply has not been using it because she feels that she does not need it. If there are furthe r concerns about patient following commands and patient may need guardianship further geriatric evaluation. Code Visit OBSV E&M: 45742 Observ/hosp same date L2
--- NOTE | 2019-11-05 19:14 | DCINST_ITS ---
- Discharge Diagnoses Current Active Problems: Current Active and Chronic Problems (Last Reviewed 11/05/19 @ 18:23 by Gerry Hurtado DO) RSV infection (Acute) Hypoxia (Acute) COPD exacerbation (Acute) You will use the following diet at home:: No restrictions Your food should be the consistency of: Regular Discharge Activity: Return to Normal Activity Call your doctor if you observe: Shortness of breath Additional Instructions: wear oxygen continuously. Allergies/Adverse Reactions: Allergies Sulfa (Sulfonamide Antibiotics) Allergy (Verified 11/05/19 14:05) FACE GETS RED AND ITCHY codeine Adverse Reaction (Verified 11/05/19 14:05) Nausea Medications to take at Discharge Albuterol Sulfate [Ventolin Hfa] 1 - 2 puff INHALATION Q4H PRN 11/26/17 Atorvastatin Calcium [Lipitor] 10 mg PO QHS 11/26/17 Diclofenac [Voltaren] 75 mg PO BIDCM 11/26/17 Gabapentin [Neurontin] 600 mg PO QHS 11/26/17 Albuterol Aerosols [Ventolin Aerosols] 2.5 mg INHALATION Q2H PRN PRN #1 box 11/28/17 Fluticasone/Umeclidin/Vilanter [Trelegy Ellipta 100-62.5-25] 1 puff IH DAILY 10/16/18 Famotidine [Pepcid] 20 mg PO QHS 10/30/19 Trazodone HCl 50 mg PO QHS 10/30/19 Lisinopril 5 mg PO QHS 11/05/19 Prednisone See Taper PO UD 11/05/19 Primary Care Physician: Matt Peace MD [Primary Care Provider] - Within 2 Weeks Test Results: Test results from this visit will be discussed in further detail at your follow- up appointment, if applicable. Please Follow Up With: gastroenterology When: 1-2 months Proposed Discharge Date: 11/05/19
--- NOTE | 2019-11-05 19:16 | PCM.DC.SUM ---
Discharge Date and Diagnosis - Problem List Patient Problems: Active and Suspected Problems (Last Reviewed 11/05/19 @ 18:23 by Gerry Hurtado DO) RSV infection (Acute) Hypoxia (Acute) COPD exacerbation (Acute) Date of Admission: 10/30/19 Date of Discharge: 11/05/19 - Primary Discharge Diagnosis Active and Suspected Problems (Last Reviewed 11/05/19 @ 18:23 by Gerry Hurtado DO) hypoxia - Secondary Discharge Diagnosis Chronic Problems (Last Reviewed 11/05/19 @ 18:23 by Gerry Hurtado DO) Neurogenic bowel (Chronic) Neurogenic bladder (Chronic) HLD (hyperlipidemia) (Chronic) Hospital Course and Treatment Imaging Results: 11/05/19 16:28 Chest PA and Lateral [RAD] Stat 11/05/19 16:59 CTA Chest W/WO Contrast [CT] Stat Operations: None Procedures: None Summary of Care Provided: The patient is a 74 year old F presents with hypoxia. Please see the consultation for further details. Patient essentially was hypoxia because she was not wearing her oxygen. Patient was discharged on the fourth and was advised to have continuous oxygen as she was 87% on room air at rest. Patient stated that she does not need it. It was emphasized to her that she needs to be on oxygen. The initial emergency room physician, did not look back at these records I did review them when I was notified by the ER physician. I notified the physician taking over who stated that he was going to discharge her. Without his knowledge, patient was brought up to the floor by the ER staff. Patient has oxygen, she has tanks, she has a condenser. Patient needs to wear her oxygen continuously for now. Patient already has prescriptions for prednisone and bronchodilators and will not need a refill for that. Patient will return home in stable condition. [] Patient Problems: Active and Suspected Problems (Last Reviewed 11/05/19 @ 18:23 by Gerry Hurtado DO) RSV infection (Acute) Hypoxia (Acute) COPD exacerbation (Acute) - Physical Exam Vitals/I&O's: Vital Signs Temp Pulse Resp BP Pulse Ox 36.6 C 73 20 H 148/79 H 92 11/05/19 18:58 11/05/19 18:58 11/05/19 18:58 11/05/19 18:58 11/05/19 18:58 Oxygen Flow Rate (L/min) 2 Oxygen Delivery Method Room Air Weight: 40.687 kg Body Mass Index (BMI) 14.9 Laboratory Results 11/05/19 14:45: WBC 11.7 H, RBC 4.59, Hgb 14.7, Hct 44.6, MCV 97.2, MCH 32.0, MCHC 33.0, RDW Std Deviation 45.7 H, RDW Coeff of Ashu 12.8, Plt Count 401, MPV 9.2, Immature Gran % (Auto) 0.400, Neut % (Auto) 95.9 H, Lymph % (Auto) 2.2 L, [place] % (Auto) 1.5, Eos % (Auto) 0.0, Baso % (Auto) 0.0, Absolute Neuts (auto) 11.2 H, Absolute Lymphs (auto) 0.26 L, Nucleated RBC % 0, Differential Comment SCANNED 11/05/19 14:45: D-Dimer Quant (PE/DVT) Cancelled 11/05/19 14:45: Sodium Cancelled, Potassium Cancelled, Chloride Cancelled, Carbon Dioxide Cancelled, Anion Gap Cancelled, BUN Cancelled, Creatinine Cancelled, Estim Creat Clear Calc Cancelled, Est GFR (MDRD) Af Amer Cancelled, Est GFR (MDRD) Non-Af Cancelled, BUN/Creatinine Ratio Cancelled, Glucose Cancelled, Calcium Cancelled, Troponin I Cancelled 11/05/19 14:45: B-Natriuretic Peptide 39.5 11/05/19 16:22: D-Dimer Quant (PE/DVT) 0.89 H* 11/05/19 16:22: Sodium 131 L, Potassium 4.3, Chloride 94 L, Carbon Dioxide 32.0, Anion Gap 5, BUN 21 H, Creatinine 0.98, Estim Creat Clear Calc 35.88, Est GFR (MDRD) Af Amer 72, Est GFR (MDRD) Non-Af 59 L, BUN/Creatinine Ratio 21.5 H, Glucose 130 H, Calcium 8.9, Troponin I < 0.015 Current Medications Sodium Chloride () 10 - 40 ml IV UD PRN PRN Reason: SALINE FLUSH Discharge Diet: No Restrictions Discharge Activity: Return to Normal Activity Call your doctor if you observe: Shortness of breath Home Medications: Medications to take at Discharge Albuterol Sulfate [Ventolin Hfa] 1 - 2 puff INHALATION Q4H PRN 11/26/17 Atorvastatin Calcium [Lipitor] 10 mg PO QHS 11/26/17 Diclofenac [Voltaren] 75 mg PO BIDCM 11/26/17 Gabapentin [Neurontin] 600 mg PO QHS 11/26/17 Albuterol Aerosols [Ventolin Aerosols] 2.5 mg INHALATION Q2H PRN PRN #1 box 11/28/17 Fluticasone/Umeclidin/Vilanter [Trelegy Ellipta 100-62.5-25] 1 puff IH DAILY 10/16/18 Famotidine [Pepcid] 20 mg PO QHS 10/30/19 Trazodone HCl 50 mg PO QHS 10/30/19 Lisinopril 5 mg PO QHS 11/05/19 Prednisone See Taper PO UD 11/05/19 Primary Care Physician: Matt Peace MD [Primary Care Provider] - Within 2 Weeks Please Follow Up With: gastroenterology When: 1-2 months Disposition: Home Minutes spent on discharge:: 32 Patient Condition:: Fair Medical Necessity - Tobacco Use Smoking Status: Former smoker Meaningful Use Info Meaningful Use Diagnoses (Choose all that apply): None applicable Code Visit OBSV E&M: 42465 Observ/hosp same date L2
--- NOTE | 2019-11-05 20:05 | NURSING ---
1944 Let pt know she was Discharged. Hospitalist said she has all the items she needed at home Need to wear her O2 per Emma Hightower. Pt was upset started to cry. Apologized for the mix up. Explained to her she did not have to hurry out not sure when her ride could get here. Was hungry and thirsty had the [employer]ACHINE [employer]PER[employer] get her meal and water. Checked on her 1999 was eating much happier and did get a hold of her son( he was coming from [place]).
--- NOTE | 2019-11-05 20:55 | NURSING ---
2054 pt's son here to strip picker pt.
--- NOTE | 2019-11-06 15:44 | CASEMGMT ---
BHUMI PEDRO DC PHONE CALL DC DATE: 11/05/2019 DC Disposition: Home Diagnosis on Discharge: RSV Infection, Hypoxia LACE/STRATA: 08/31 Intro role of CM to patient via phone. Pt remembered previous dc call by this RN WILLIS. Pt states she is wearing oxygen at home when needed. States she has been checking her pulse ox and it is 95% unless she is active. Then she states she is wearing O2. Pt states Dr. Peace's office called and recommended pt follow up with her quoter, Dr. Calle. Pt is making appointment on conclusion of call. No further questions. Sammie DELEON RN ACM
== END 2019-11-05 18:24 | disposition short-term general hospital (02) ==
PROVIDERS: Emergency Provider Emergency Medicine; Family Provider Family Medicine; PCP Family Medicine
DX: J44.1 Chronic obstructive pulmonary disease with (acute) exacerbation (principal); R09.02 Hypoxemia; B97.4 Respiratory syncytial virus as the cause of diseases classified elsewhere; K92.1 Melena; E78.5 Hyperlipidemia, unspecified; Z99.81 Dependence on supplemental oxygen; Z87.891 Personal history of nicotine dependence; Z79.51 Long term (current) use of inhaled steroids; Z79.52 Long term (current) use of systemic steroids; Z79.899 Other long term (current) drug therapy
CPT/HCPCS: 71046; 71275; 80048; 83880; 84484; 85025; 85379; 93005; 94640; 99285; Q9967; A4216

== ENCOUNTER 2020-05-03 15:01 | Inpatient (IN) | payer MEDICARE, OTHER, SELFPAY ==
[2019-11-05 18:51] VITALS: BMI 14.9
[2020-05-03] VITALS (28 sets, daily range): BP systolic 52–131; BP diastolic 32–106; PULSE 78–93; RESP 14–22; TEMP 36.3–38.3; O2SAT 10–100; BMI 15.8; BMI 18.1
--- NOTE | 2020-05-03 15:21 | RAD_ITS ---
STUDY: X-RAY CHEST REASON FOR EXAM: Female, 74 years old. Shortness of breath TECHNIQUE: Frontal view of the chest COMPARISON: 11/17 FINDINGS: There are stable emphysematous changes noted in the lungs. The lungs are otherwise clear. There are no pleural effusions. There is no pneumothorax. The heart is normal in size. The visualized osseous structures are within normal limits. RAD/Chest 1 View (Portable) IMPRESSION: Stable emphysema. No acute thoracic pathology. Electronically Signed: Donald Elder, at 16:18 EDT Tel , Service support ,
--- NOTE | 2020-05-03 15:22 | EKG12_ITS ---
Test Reason : GI BLEED Blood Pressure : / mmHG Vent. Rate : 080 BPM Atrial Rate : 080 BPM P-R Int : 122 ms QRS Dur : 076 ms QT Int : 356 ms P-R-T Axes : 078 049 075 degrees QTc Int : 410 ms Normal sinus rhythm with sinus arrhythmia Low Voltage QRS (Limb Leads) Confirmed by DECLAN CEJA, GERBER ([id number]), art editor JAY FALK ([id number]) on 05/05/2020 10:05:33 AM Referred By: WAYNE Confirmed By:GERBER MANRIQUEZ MD
[2020-05-03] MEDS: 0.9% Normal Saline 1,000 ML 1000 ML IV (15:27)
[2020-05-03] MEDS: Ondansetron 4 MG/2 ML Vial IV (15:37)
[2020-05-03 15:46] LABS: Absolute Lymphocyte Count 0.77 X10^3/uL (0.83-4.51); Absolute Neutrophil Count 30.7 X10^3/uL (2.0-7.7); Basophil# 0.08 X10^3/uL; Basophil% 0.2 % (0-1); Eosinophil# 0.08 X10^3/uL; Eosinophils% 0.2 % (0-5); Hematocrit 42.3 % (37-47); Hemoglobin 13.7 g/dL (12.0-15.0); Lymphocyte # 0.77 X10^3/ul (4.0); Lymphocyte % 2.3 % (19-41); Mean Corp Hgb Conc 32.4 g/dL (32-36); Mean Corpuscular Hgb 32.2 pg (27.0-32.0); Mean Corpuscular Volume 99.5 fL (81-99); Monocyte# 0.95 X10^3/uL; Monocyte% 2.8 % (0-10); NRBC Flagged by Analyzer 0 % (0-5); Neutrophil % 92.1 % (47-70); POSITIVE COUNT YES; POSITIVE DIFFERENTIAL YES; POSITIVE MORPHOLOGY YES; Platelet Count 294 K/mm3 (150-450); RBC Distribution Width CV 13.7 % (11.6-14.6); RBC Distribution Width SD 49.8 fl (35.1-43.9); Red Blood Count 4.25 M/mm3 (4.2-5.4)
[2020-05-03 15:49] LABS: Differential Indicated SCAN CRITERIA MET; White Blood Count 33.4 K/mm3 (4.4-11.0)
[2020-05-03 16:02] LABS: ALB/GLOB Ratio 0.9 RATIO (0.9-2.4); AST(SGOT) 22 U/L (15-37); Alanine Aminotransfer ALT/SGPT 17 U/L (13-56); Albumin, Serum 2.8 g/dL (3.2-5.0); Alkaline Phosphatase 67 U/L (45-117); Anion Gap 9 (5-15); BUN 34 mg/dL (7-18); BUN/Creat Ratio 13.9 RATIO (10-20); Calcium,Total 8.2 mg/dL (8.5-10.1); Chloride 97 mmol/L (98-107); Creatinine, Serum 2.44 mg/dL (0.55-1.02); EST Glomerular Filtration Rate 21 mL/min (>60); Est Glom Filt Rate - Afr Amer 25 mL/min (>60); Estimated Creatinine Clearance 14.03 ml/min; Globulin 3.1 g/dL (2.2-4.2); Glucose 84 mg/dL (74-106); Protein, Total 5.9 g/dL (6.4-8.2); Sodium Level 132 mmol/L (136-145)
[2020-05-03 16:16] LABS: Lactic Acid 3.8 mmol/L (0.4-1.9)
--- NOTE | 2020-05-03 16:28 | ED.DCSUM_ITS ---
- ER Visit Summary Date of Service: 05/03/20 Chief Complaint: Diarrhea History of Present Illness: The patient is a [address] Peace. She is a poor informant. Patient reports she has diarrhea that began yesterday. States she is had 4 episodes of bright red blood. She reports that she has cramping lower abdominal pain Zeta 10 at worst and 5-10 currently. Is worsened by nothing. Is relieved by rocking [id number]. She had nausea without vomiting. She denies any dysuria or frequency. She denies fever or chills. Patient does report that she has shortness of breath. She reports that it is mild currently and severe at worst. She denies any cough. She does complain of generalized weakness. Physical Examination: Vitals: Stable. Afebrile. General: Chronically ill-appearing cachectic. Head: Normocephalic atraumatic. Neck: Supple, no lymphadenopathy. No JVD. Nontender. Cardiovascular: Regular rate and rhythm. No murmurs. Respiratory: No respiratory distress. Clear to auscultation bilaterally. Poor air movement. Abdominal: Soft, nontender, nondistended, normal bowel sounds. No guarding, rebound, or peritoneal signs. Back: Nontender. Extremities: Nontender, no edema. Skin: Normal color, no rash. Neurologic: Alert and oriented ?3. Cranial nerves II through XII are intact. Normal strength and sensation. Psych: Normal affect. Test Results: EKG is sinus at 80. CBC shows a white count of 33.4 with 92 segmented neutrophils and 2 lymphocytes. Immature granulocytes 2.4%. Chem-7 shows a sodium of 132, chloride 97, calcium of 8.2, BUN 34, creatinine 2.44. Last creatinine was less than 1. Lactic acid is 3.8. ABG shows a pH of 7.360 with a CO2 of 36.1 and bicarb of 20.5. UA is negative. LFTs are remarkable total protein of 5.9 and albumin of 2.8. Clinical Impression(s) from Imaging Studies Chest X-Ray 05/03/20 15:21 IMPRESSION: Stable emphysema. No acute thoracic pathology. Electronically Signed: Donald Elder, at 16:18 EDT Tel , Service support , Brain CT 05/03/20 17:18 IMPRESSION: No acute intracranial abnormality. Mild chronic ischemic change. Electronically Signed: Donald Elder, at 18:04 EDT Tel , Service support , Emergency Department Course and Treatment: Patient had an IV placed. She was given a 30 cc/kg bolus of normal saline. Her blood pressure has now stabilized and is over 100 systolic. She was also given Zosyn and vancomycin IV. She was unable to give a stool sample while here. The nurse did clean her up and reports that she had mucousy stool in her undergarments, but there was no blood. Treatment Plan: Patient was discussed with Dr. Hurtado. He asked that a COVID test be sent and the patient be kept in the emergency department until this returns. He does not feel that she needs to the ICU would like her admitted to the PCU. This will be checked out to the oncoming physician. Disposition: Admitted in improved, but serious condition. Impression: 1. Septic shock, uncertain source. 2. Diarrhea. 3. Acute kidney injury. 4. COPD. 5. Critical care time 33 minutes. This note was generated with [employer] dictation software. It may contain incorrect words, spelling, and punctuation that were not noted in review of the chart prior to signing ED Disposition - Plan for ED Patient: Referrals: Matt Peace MD [Primary Care Provider] -
[2020-05-03] MEDS: 0.9% Normal Saline 1,000 ML 999 ML IV (16:40)
[2020-05-03 16:41] LABS: Base Excess -5 mmol/L (-2 to +2); Bicarbonate 20.5 mmol/L (22-26); Blood Gas Specimen Type ART; O2 Delivery Device Nasal Can; PO2 77 mmHG (75-100); SITE L BRACHIAL; SO2 95 % (95-99); Total Carbon Dioxide 22 mmol/L; pCO2 36.1 mmHg (35-45); pH 7.36 (7.35-7.45)
[2020-05-03 16:42] LABS: Time Given 1616
[2020-05-03 16:43] LABS: Hypochromasia RARE; Platelet Estimate ADEQUATE (ADEQ)
[2020-05-03 17:03] LABS: Bacteria 0 SEEN /hpf (None Seen); Mucous, Urine 0 SEEN /hpf (<or=2+); Red Blood Cells-Urine 0 SEEN /hpf (0-5)
[2020-05-03 17:10] LABS: Color, Urine Yellow (Yellow); Glucose, Dipstick Normal (Normal); Ketone-Dipstick Negative (Negative); Leukocyte Esterase-Dipstick 25 /ul (Negative); Nitrite-Dipstick Negative (Negative); Occult Blood-Urine Negative /ul (Negative); Protein-Dipstick 15 mg/dl (Negative); Urine Bilirubin Dipstick Negative (Negative); Urine Clarity Clear (Clear); Urine Urobilinogen Normal (Normal)
[2020-05-03 17:18] LABS: International Normalized Ratio 1.2; Prothrombin Time (Protime)PT. 14.5 SECONDS (11.7-14.9)
--- NOTE | 2020-05-03 17:18 | CT_ITS ---
STUDY: CT BRAIN WITHOUT CONTRAST REASON FOR EXAM: Female, 74 years old. Infusion RADIATION DOSAGE (If Supplied By Facility): CTDIvol = ( 44.99 ) mGy, DLP = ( 779.24 ) mGycm TECHNIQUE: Transaxial CT imaging of the brain was performed without administration of intravenous contrast material. Individualized dose optimization techniques were used for this CT. COMPARISON: None. FINDINGS: There is no acute bleed or infarct. There are mild chronic ischemic changes noted. The ventricles are normal in configuration. There is no hydrocephalus. The visualized paranasal sinuses are clear. The mastoid air cells are well aerated. There is no skull fracture. CT/Brain/Head without Contrast IMPRESSION: No acute intracranial abnormality. Mild chronic ischemic change. Electronically Signed: Donald Elder, at 18:04 EDT Tel , Service support ,
[2020-05-03 17:19] LABS: Partial Thromboplast Time 32.7 Seconds (24.1-36.2)
[2020-05-03 17:50] LABS: Squamous Epithelial Cells - UA 0-5 SEEN /hpf (5-10); White Blood Cells 0-5 SEEN /hpf (0-5)
--- NOTE | 2020-05-03 18:33 | HP.PCM_ITS ---
Problem List (1) Shock Status: Acute (2) JIM (acute kidney injury) Status: Acute (3) GI bleed Status: Acute (4) Hypoxia Status: Acute (5) Guaiac positive stools Status: Acute (6) Acute diarrhea Status: Acute (7) Neurogenic bowel Status: Chronic (8) Neurogenic bladder Status: Chronic (9) HLD (hyperlipidemia) Status: Chronic (10) COPD (chronic obstructive pulmonary disease) Status: Chronic History of Present Illness Date of Admission: 05/03/20 Chief Complaint: diarrhea. blood in stool. The patient is a 74 year old F presents with diarrhea and hematochezia. Symptoms began last night but were just much more intense today. Patient is never had any issues with this before. Patient presented to the emergency room and her blood pressure was 52/37. Patient received 30 cc per kilogram of IV fluids and her blood pressure has improved to 91/39. Patient states that her blood pressure normally runs low from 70s to 80s systolic. Patient states short of breath but that is not new. Denies any exposure to anyone with COVID-19, stating that she is only been out once in the past 2 months. Additionally in the emergency room, patient's creatinine was noted to be elevated at 2.44, lactic acid was 3.8. Infectious work-up was unremarkable otherwise. [] Past Medical History Past Medical History (Chronic Problems): Chronic Problems (Last Reviewed 11/05/19 @ 18:[address] Gerry Hurtado DO) COPD (chronic obstructive pulmonary disease) (Chronic) Neurogenic bowel (Chronic) Neurogenic bladder (Chronic) HLD (hyperlipidemia) (Chronic) Medical History: Medical History (Last Reviewed 05/03/20 @ 18:[address] Gerry Hurtado DO) Guaiac positive stools (Acute) R19.5 COPD (chronic obstructive pulmonary disease) J44.9 Allergies Sulfa (Sulfonamide Antibiotics) Allergy (Verified 05/03/20 15:21) FACE GETS RED AND ITCHY codeine Adverse Reaction (Verified 05/03/20 15:21) Nausea Home Medications: Ambulatory Orders Medication Instructions Recorded Albuterol Sulfate [Ventolin Hfa] 1 - 2 puff INHALATION Q4H PRN 11/26/17 Atorvastatin Calcium [Lipitor] 10 mg PO QHS 11/26/17 Diclofenac [Voltaren] 75 mg PO BIDCM 11/26/17 Gabapentin [Neurontin] 600 mg PO QHS 11/26/17 Albuterol Aerosols [Ventolin 2.5 mg INHALATION Q2H PRN PRN #1 11/28/17 Aerosols] box Fluticasone/Umeclidin/Vilanter 1 puff IH DAILY 10/16/18 [Trelegy Ellipta 100-62.5-25] Famotidine [Pepcid] 20 mg PO QHS 10/30/19 Trazodone HCl 50 mg PO QHS 10/30/19 Lisinopril 5 mg PO QHS 11/05/19 Prednisone See Taper PO UD 11/05/19 Azithromycin 250 mg PO DAILY 05/03/20 Surgical History: Surgical History (Last Reviewed 05/03/20 @ 18:[address] Gerry Hurtado DO) History of back surgery Z98.890 History of breast lump removal Z98.890 History of hysterectomy Z90.710 Surgical History: cholecystectomy, hysterectomy, - - spinal surgery Psychiatric History: No pertinent psych hx [employer] History: No pertinent [employer] history Smoking Status: Former smoker - *Family History Maternal Family History: Family History (Last Reviewed 05/03/20 @ 18:[address] Gerry Hurtado DO) Father Kidney disease Sister Breast cancer Sister Cancer History Items: Heart Disease Paternal Family History: Family History (Last Reviewed 05/03/20 @ 18:[address] Gerry Hurtado DO) Father Kidney disease Sister Breast cancer Sister Cancer History Items: Renal Disease Review of Systems Constitutional: Denies: Anorexia, Chills, Fever Eyes: Denies: Blurred vision, Double vision HEENT: Denies: Head Aches, Sinus Congestion, Sinus Drainage Cardiovascular: Denies: Chest Pain, Palpitations Respiratory: Reports: Shortness of Breath. Denies: Cough Gastrointestinal: Reports: Abdominal Pain, Diarrhea, Hematochezia, Nausea. Denies: Vomiting Genitourinary: Denies: Dysuria Musculoskeletal: Denies: Joint Pain, Joint Tenderness Skin: Denies: Rash, Wounds Hematologic/ Lymphatic: Denies: Easy Bruising, Easy Bleeding, Hx of blood clot Comment: All review of systems were negative except as mentioned above in the history of present illness and the other review of systems. VTE Information - Inpt Only VTE Present on Admission: No VTE Mechan Device Prophylaxis: SCD's VTE Pharm Prophylaxis ordered?: No Reason prophylaxis not ordered:: Medical Contraindication Patient Problems: Active and Suspected Problems (Last Reviewed 11/05/19 @ 18:[address] Gerry Hurtado DO) Shock (Acute) JIM (acute kidney injury) (Acute) GI bleed (Acute) - Physical Exam Vitals/I&O's: Vital Signs Temp Pulse Resp BP Pulse Ox 37.7 C H 82 19 H 78/42 L 95 05/03/20 18:13 05/03/20 18:11 05/03/20 18:11 05/03/20 18:11 05/03/20 18:11 Oxygen Flow Rate (L/min) 2 Oxygen Delivery Method Nasal Cannula Weight: 43.273 kg Body Mass Index (BMI) 15.8 Intake and Output for Last 24 Hours 05/01/20 05/02/20 05/03/20 23:59 23:59 23:59 Intake Total 2099 Balance 2099 General: Alert, Cooperative, No apparent distress HEENT: Atraumatic, Normocephalic Oral: No Gingival or Mucosal Lesions/ Ulcerations, Dry Mucosa Neck: No Nodes, Thyroid Normal Size and Texture Lungs: Clear to auscultation, Normal air movement, No rhonchi, No wheeze Cardiovascular: Regular rate, Regular Rhythm, Normal S1 Abdomen: Bowel Sounds Present, Soft, Tender - Minimally diffuse. Extremities: No edema, No Calf Tenderness Skin: No rashes, No breakdown Musculoskeletal: Cachexia, Muscle Wasting Neurological: Sensory exam intact to light touch and pain, - - no clonus Psych/Mental Status: Normal Affect, Appropriate Laboratory Results 05/03/20 15:20: Lactic Acid 3.8 H* 05/03/20 15:20: WBC 33.4 H*, RBC 4.25, Hgb 13.7, Hct 42.3, MCV 99.5 H, MCH 32.2 H, MCHC 32.4, RDW Std Deviation 49.8 H, RDW Coeff of Ashu 13.7, Plt Count 294, MPV 10.0, Immature Gran % (Auto) 2.400 H, Neut % (Auto) 92.1 H, Lymph % (Auto) 2.3 L, [place] % (Auto) 2.8, Eos % (Auto) 0.2, Baso % (Auto) 0.2, Absolute Neuts (auto) 30.7 H, Absolute Lymphs (auto) 0.77 L, Nucleated RBC % 0, Differential Comment COMMENT, Diff Path Review May foll, Platelet Estimate ADEQUATE, Hypochromasia RARE 05/03/20 15:20: Sodium 132 L, Potassium 5.0, Chloride 97 L, Carbon Dioxide 26.0, Anion Gap 9, BUN 34 H, Creatinine 2.44 H, Estim Creat Clear Calc 14.03, Est GFR (MDRD) Af Amer 25 L, Est GFR (MDRD) Non-Af 21 L, BUN/Creatinine Ratio 13.9, Glucose 84, Calcium 8.2 L, Total Bilirubin 0.90, AST 22, ALT 17, Alkaline Phosphatase 67, Troponin I 0.044, Total Protein 5.9 L, Albumin 2.8 L, Globulin 3.1, Albumin/Globulin Ratio 0.9 05/03/20 15:20: Blood Type O POSITIVE, Antibody Screen NEGATIVE 05/03/20 16:21: Specimen Type ART, Sample Site L BRACHIAL, pH 7.36, Bicarbonate Actual 20.5 L, POC Total CO2 22, Base Excess -5 L, O2 Saturation 95, ABG pCO2 36.1, ABG pO2 77, Eriberto Test NA, O2 Delivery Device Nasal Can, Liter Flow 2.0, Blood Gas Notified Whom ED MD, Blood Gas Notified Time 1616 05/03/20 16:30: Urine Color Yellow, Urine Clarity Clear, Urine pH 6.0, Ur Specific [place] 1.010, Urine Protein 15 H, Urine Glucose (UA) Normal, Urine Ketones Negative, Urine Occult Blood Negative, Urine Nitrite Negative, Urine Bilirubin Negative, Urine Urobilinogen Normal, Ur Leukocyte Esterase 25 H, Urine RBC 0 SEEN, Urine WBC 0-5 SEEN, Ur Squamous Epith Cells 0-5 SEEN, Urine Bacteria 0 SEEN, Urine Mucus 0 SEEN 05/03/20 16:50: PT 14.5, INR 1.2, APTT 32.7 Chest x-ray reviewed and showed hyperinflated airways but no acute process. Head CT showed no acute process. Current Medications Vancomycin HCl (Vancomycin) 1,000 mg in 200 mls @ 200 mls/hr IV X1 ONE Stop: 05/03/20 19:29 Assessment/Plan All Active Problems (Last Reviewed 11/05/19 @ 18:[address] Gerry Hurtado, DO) Hypoxia (Acute) Shock (Acute) JIM (acute kidney injury) (Acute) GI bleed (Acute) Guaiac positive stools (Acute) Acute diarrhea (Acute) 1. Shock: Septic versus hypovolemic * Patient did receive 30 cc/kg of IV fluids in the emergency room and blood pressure has improved. Still technically hypotensive but patient is currently alert and oriented and endorses that her blood pressure typically runs low in the 70-80 range. * Apparently patient blood pressure dropped again into the 70s and was started on norepinephrine drip. Central line to be placed in the emergency room. * Would continue with IV fluids 150 cc/h for 1 more liter * Additionally, would hold her lisinopril * Follow-up infectious work-up. Part of that work-up will also be checking for COVID-19. Clinically I will feel the patient does have COVID-19 but the fact that this could be septic shock is certainly worthwhile ruling that out. If the test is negative the patient would not require isolation. * Continue with vancomycin and Zosyn. 2. JIM * suspect prerenal from diarrhea * continue IVF * hold lisinopril and diclofenac * monitor 3. GI bleed * Hg stable, though may be hemoconcentrated * monitor * PO PPI hold H2B for now. * consider imaging (CT abd/pelvis, bleeding scan depending on course) 4. Diarrhea * unclear etiology * follow up stool for C diff and enteric pathogens 5. COPD: * stable * not in exacerbation 6. VTE prophylaxis: SCDs. hold chemical prophylaxis given GI bleed 7. Advanced care planning: per patient DNRCCA w allowance for intubation. Inpatient E&M: [id number] Init Hosp L3
[2020-05-03] MEDS: Vancomycin IV 1,000 MG/200 ML BAG 200 MG IV (18:46)
[2020-05-03 19:40] LABS: Reflex Lactate? Y
[2020-05-03 21:33] LABS: Lactic Acid 1.9 mmol/L (0.4-1.9)
[2020-05-03] MEDS: 0.9% Normal Saline 1,000 ML 150 ML IV (21:37)
[2020-05-03 21:46] LABS: Hematocrit 36.2 % (37-47); Hemoglobin 11.7 g/dL (12.0-15.0)
[2020-05-03 22:05] LABS: Vitamin D,25 Hydroxy 57.7 ng/mL
[2020-05-03] MEDS: traZODone 50 MG Tablet PO (22:25)
[2020-05-03] MEDS: Pantoprazole Sodium 40 MG Tablet PO (22:26)
[2020-05-03] MEDS: Gabapentin 100 MG Capsule PO (22:26)
[2020-05-03] MEDS: Atorvastatin Calcium 10 MG Tablet PO (22:26)
[2020-05-03] MEDS: Acetaminophen 325 MG Tablet 650 MG PO (22:29)
--- NOTE | 2020-05-03 23:16 | RAD_ITS ---
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 EXAMINATION/TECHNIQUE: XR Chest 1 View AP/PA Number of images including paperwork: 1 COMPARISON: 05/03/2020 FINDINGS: LUNGS AND PLEURA: No consolidation, mass or pleural effusion. No pneumothorax. Hyperinflation and minimal scarring appear similar. CARDIAC SILHOUETTE: Unremarkable. MEDIASTINUM AND EUGENE: Unchanged aortic calcification and tortuosity. UPPER ABDOMEN: Unremarkable. SKELETON AND SOFT TISSUES: No acute findings. OTHER DEVICES AND HARDWARE: None. As visualized. RAD/Chest 1 View (Portable) IMPRESSION: No acute cardiopulmonary abnormality. at 0016 Reported and signed by: Adrianne Lopez MD Electronically Signed: Adrianne Lopez MD at 0:16 EDT Tel , Service support ,
[2020-05-04] VITALS (67 sets, daily range): BP systolic 73–145; BP diastolic 32–98; PULSE 65–90; RESP 12–26; TEMP 36.9–37.6; O2SAT 94–100
[2020-05-04] MEDS: TITRATION PARAMETER CHANGE 1 EACH IV (01:37)
[2020-05-04 03:51] LABS: Absolute Lymphocyte Count 0.91 X10^3/uL (0.83-4.51); Absolute Neutrophil Count 34.1 X10^3/uL (2.0-7.7); Basophil# 0.11 X10^3/uL; Basophil% 0.3 % (0-1); Eosinophils% 0.8 % (0-5); Hematocrit 36.3 % (37-47); Hemoglobin 11.8 g/dL (12.0-15.0); Lymphocyte # 0.91 X10^3/ul (4.0); Lymphocyte % 2.4 % (19-41); Mean Corp Hgb Conc 32.5 g/dL (32-36); Mean Corpuscular Hgb 32.5 pg (27.0-32.0); Mean Platelet Vol. 9.2 fl (6.2-12.0); NRBC Flagged by Analyzer 0 % (0-5); Neutrophil # 34.07 X10^3/uL (2.7-7.7); Neutrophil % 91.6 % (47-70); POSITIVE COUNT YES; POSITIVE DIFFERENTIAL YES; POSITIVE MORPHOLOGY YES; Platelet Count 245 K/mm3 (150-450); RBC Distribution Width CV 13.8 % (11.6-14.6); RBC Distribution Width SD 50.5 fl (35.1-43.9); Red Blood Count 3.63 M/mm3 (4.2-5.4)
[2020-05-04 03:59] LABS: Differential Indicated SCAN CRITERIA MET
[2020-05-04 04:00] LABS: White Blood Count 37.2 K/mm3 (4.4-11.0)
[2020-05-04 04:03] LABS: Anion Gap 6 (5-15); BUN 30 mg/dL (7-18); BUN/Creat Ratio 17.3 RATIO (10-20); Calcium,Total 7.1 mg/dL (8.5-10.1); Chloride 106 mmol/L (98-107); Creatinine, Serum 1.73 mg/dL (0.55-1.02); EST Glomerular Filtration Rate 31 mL/min (>60); Est Glom Filt Rate - Afr Amer 37 mL/min (>60); Glucose 88 mg/dL (74-106); Potassium 4.4 mmol/L (3.5-5.1); Sodium Level 134 mmol/L (136-145)
[2020-05-04 04:36] LABS: Differential Comment SCANNED
[2020-05-04] MEDS: 0.9% Normal Saline 1,000 ML 150 ML IV ×4 (06:20→21:43)
--- NOTE | 2020-05-04 06:29 | CON.PCM_ITS ---
Problem List (1) Protein calorie malnutrition Status: Chronic (2) Hypoxia Status: Acute (3) Shock Status: Acute (4) JIM (acute kidney injury) Status: Acute (5) GI bleed Status: Acute (6) COPD (chronic obstructive pulmonary disease) Status: Chronic (7) Acute diarrhea Status: Acute (8) Neurogenic bladder Status: Chronic (9) HLD (hyperlipidemia) Status: Chronic Reason for Consult Date of Consultation: 05/04/20 Reason for Consultation: Shock History of Present Illness: The patient is a 74 year old F, with past medical history listed below, who presented to [facility] with a reported 3-day history of diarrhea. On the day prior to presentation, patient had had 4 episodes of bloody diarrhea and lower abdominal cramping sensation. Patient states the pain was approximately 5 out of 10. Patient states this was improved by rocking back and forth, but was not associated with vomiting, dysuria, frequency, fever or chills. Patient had reported some nausea. Patient did have some shortness of breath, but denied any cough. Patient had reported some generalized weakness. In the ER, patient was not tachycardic and EKG showed a normal sinus rhythm. Patient did have a significant leukocytosis of 33.4 with 2.4% immature granulocytes and a sodium of 132. Creatinine was significantly elevated from a baseline of 1 to 2.44. ABG showed a compensated metabolic acidosis and LFT showed slight malnutrition with an albumin of 2.8. Patient was initiated on IV fluids at 30 cc/kg. Patient was also given Zosyn and vancomycin IV. COVID test was sent but negative. While in the ER, patient had a drop in her blood pressure to 78/42. Patient was initiated on Levophed through a femoral central line and admitted to the intensive care unit. In the intensive care unit, patient is required up to 25 mcg of Levophed to maintain adequate blood pressure. Patient reports subjective improvement in overall condition. Patient has had multiple stools and was febrile. Patient responded well to Tylenol therapy. Patient is still reporting some abdominal cramping, but overall feels this is improved. Patient is requiring minimal nasal cannula oxygen to maintain saturations. Patient is a relatively poor historian about her background, but does admit to a diagnosis of COPD. Patient states that she was recently on Levaquin therapy for an exacerbation, but is unclear who prescribed it. Review of systems otherwise negative from a constitutional, HEENT, respiratory, cardiovascular, GI, genitourinary, musculoskeletal, skin, neurologic, psychiatric and hematologic system unless stated above. Past Medical History Past Medical History (Chronic Problems): Chronic Problems (Last Reviewed 05/03/20 @ 18:[address] Gerry Hurtado DO) COPD (chronic obstructive pulmonary disease) (Chronic) Protein calorie malnutrition (Chronic) Neurogenic bowel (Chronic) Neurogenic bladder (Chronic) HLD (hyperlipidemia) (Chronic) Medical History: Medical History (Last Reviewed 05/03/20 @ 18:[address] Gerry Hurtado DO) Guaiac positive stools (Acute) R19.5 COPD (chronic obstructive pulmonary disease) J44.9 Allergies Sulfa (Sulfonamide Antibiotics) Allergy (Verified 05/03/20 15:21) FACE GETS RED AND ITCHY codeine Adverse Reaction (Verified 05/03/20 15:21) Nausea Home Medications: Ambulatory Orders Medication Instructions Recorded Albuterol Sulfate [Ventolin Hfa] 1 - 2 puff INHALATION Q4H PRN 11/26/17 Atorvastatin Calcium [Lipitor] 10 mg PO QHS 11/26/17 Diclofenac [Voltaren] 75 mg PO BIDCM 11/26/17 Gabapentin [Neurontin] 600 mg PO QHS 11/26/17 Albuterol Aerosols [Ventolin 2.5 mg INHALATION Q2H PRN PRN #1 11/28/17 Aerosols] box Fluticasone/Umeclidin/Vilanter 1 puff IH DAILY 10/16/18 [Trelegy Ellipta 100-62.5-25] Famotidine [Pepcid] 20 mg PO QHS 10/30/19 Trazodone HCl 50 mg PO QHS 10/30/19 Lisinopril 5 mg PO QHS 11/05/19 Prednisone See Taper PO UD 11/05/19 Azithromycin 250 mg PO DAILY 05/03/20 Surgical History: Surgical History (Last Reviewed 05/03/20 @ 18:[address] 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 Gerry Hurtado DO) Father Kidney disease Sister Breast cancer Sister Cancer History Items: Heart Disease Paternal Family History: Family History (Last Reviewed 05/03/20 @ 18:[address] Gerry Hurtado DO) Father Kidney disease Sister Breast cancer Sister Cancer History Items: Renal Disease Review of Systems Comment: See HPI Patient Problems: Active and Suspected Problems (Last Reviewed 05/03/20 @ 18:[address] Gerry Hurtado DO) Shock (Acute) JIM (acute kidney injury) (Acute) GI bleed (Acute) Objective: All imaging was personally reviewed. Chest x-ray showed hyperinflation without acute infiltrate. Patient does not have any PFT available for review. Recent CTA of the chest in October did show severe diffuse emphysematous changes with bronchial thickening with some spiculated infiltrates of the upper lobe - Physical Exam Vitals/I&O's: Vital Signs Temp Pulse Resp BP Pulse Ox 36.9 C 73 13 113/32 L 96 05/04/20 04:00 05/04/20 05:45 05/04/20 05:00 05/04/20 05:45 05/04/20 05:00 Oxygen Flow Rate (L/min) 2 Oxygen Delivery Method Nasal Cannula Weight: 43.1 kg Body Mass Index (BMI) 18.1 Intake and Output for Last 24 Hours 05/02/20 05/03/20 05/04/20 23:59 23:59 23:59 Intake Total 2470.75 / 2477.78 1463.97 / 1463.97 Output Total 575 / 575 800 / 800 Balance 1895.75 / 1902.78 663.97 / 663.97 General: Alert, Oriented x3, Cooperative, - - Mild conversational dyspnea. Cachectic. Appears older than stated age. HEENT: Atraumatic, PERRLA, EOMI, Normocephalic, - - No scleral icterus or injection noted Oral: No Gingival or Mucosal Lesions/ Ulcerations, Dry Mucosa Neck: Supple, No JVD, No Nodes, Trachea Midline Lungs: No rhonchi, No wheeze, No rales, Diminished, - - Symmetric expansion. No dullness to percussion. Cardiovascular: Regular rate, Regular Rhythm, Normal S1, Normal S2, No murmurs, No rub noted, No Gallop Abdomen: Soft, Hyperactive Bowel Sounds, Tender - Slight without rebound or guarding Extremities: No clubbing, No cyanosis, No edema, Capillary Refill Less than 3 Seconds Skin: No rashes, No breakdown Musculoskeletal: No Tenderness to Palpation of Joints or Extremities, Cachexia, Muscle Wasting Lymphatic: No Cervical, Supraclavicular, or Inguinal Adenopathy Neurological: Cranial nerves II-XII grossly intact, Neuro grossly intact, Motor Exam 5/5 strength throughout Psych/Mental Status: Alert and oriented to time, place, person, mood and affect Microbiology Past 72 Hours 05/03/20 20:05 Stool C. difficile GDH Antigen & Toxins - Final 05/03/20 20:05 Stool C. difficile DNA Amplification - Final 05/03/20 20:05 Stool Stool Lactoferrin - Final Laboratory Results 05/03/20 15:20: Lactic Acid 3.8 H* 05/03/20 15:20: WBC 33.4 H*, RBC 4.25, Hgb 13.7, Hct 42.3, MCV 99.5 H, MCH 32.2 H, MCHC 32.4, RDW Std Deviation 49.8 H, RDW Coeff of Ashu 13.7, Plt Count 294, MPV 10.0, Immature Gran % (Auto) 2.400 H, Neut % (Auto) 92.1 H, Lymph % (Auto) 2.3 L, [place] % (Auto) 2.8, Eos % (Auto) 0.2, Baso % (Auto) 0.2, Absolute Neuts (auto) 30.7 H, Absolute Lymphs (auto) 0.77 L, Nucleated RBC % 0, Differential Comment COMMENT, Diff Path Review May foll, Platelet Estimate ADEQUATE, Hypochromasia RARE 05/03/20 15:20: Sodium 132 L, Potassium 5.0, Chloride 97 L, Carbon Dioxide 26.0, Anion Gap 9, BUN 34 H, Creatinine 2.44 H, Estim Creat Clear Calc 14.03, Est GFR (MDRD) Af Amer 25 L, Est GFR (MDRD) Non-Af 21 L, BUN/Creatinine Ratio 13.9, Glucose 84, Calcium 8.2 L, Total Bilirubin 0.90, AST 22, ALT 17, Alkaline Phosphatase 67, Troponin I 0.044, Total Protein 5.9 L, Albumin 2.8 L, Globulin 3.1, Albumin/Globulin Ratio 0.9 05/03/20 15:20: Blood Type O POSITIVE, Antibody Screen NEGATIVE 05/03/20 16:21: Specimen Type ART, Sample Site L BRACHIAL, pH 7.36, Bicarbonate Actual 20.5 L, POC Total CO2 22, Base Excess -5 L, O2 Saturation 95, ABG pCO2 36.1, ABG pO2 77, Eriberto Test NA, O2 Delivery Device Nasal Can, Liter Flow 2.0, Blood Gas Notified Whom ED , Blood Gas Notified Time 1616 05/03/20 16:30: Urine Color Yellow, Urine Clarity Clear, Urine pH 6.0, Ur Specific [place] 1.010, Urine Protein 15 H, Urine Glucose (UA) Normal, Urine Ketones Negative, Urine Occult Blood Negative, Urine Nitrite Negative, Urine Bilirubin Negative, Urine Urobilinogen Normal, Ur Leukocyte Esterase 25 H, Urine RBC 0 SEEN, Urine WBC 0-5 SEEN, Ur Squamous Epith Cells 0-5 SEEN, Urine Bacteria 0 SEEN, Urine Mucus 0 SEEN 05/03/20 16:50: PT 14.5, INR 1.2, APTT 32.7 05/03/20 18:20: COVID-19 (LOGAN) Not Detected 05/03/20 20:40: Lactic Acid 1.9 05/03/20 21:20: Vitamin D 25-Hydroxy 57.7 05/03/20 21:20: Troponin I 0.089 H 05/03/20 21:20: Hgb 11.7 L, Hct 36.2 L 05/03/20 23:50: Troponin I 0.102 H 05/04/20 03:45: Sodium 134 L, Potassium 4.4, Chloride 106, Carbon Dioxide 22.0, Anion Gap 6, BUN 30 H, Creatinine 1.73 H, Estim Creat Clear Calc 19.20, Est GFR (MDRD) Af Amer 37 L, Est GFR (MDRD) Non-Af 31 L, BUN/Creatinine Ratio 17.3, Glucose 88, Calcium 7.1 L 05/04/20 03:45: WBC 37.2 H*, RBC 3.63 L, Hgb 11.8 L, Hct 36.3 L, MCV 100.0 H, MCH 32.5 H, MCHC 32.5, RDW Std Deviation 50.5 H, RDW Coeff of Ashu 13.8, Plt Count 245, MPV 9.2, Immature Gran % (Auto) 0.900, Neut % (Auto) 91.6 H, Lymph % (Auto) 2.4 L, Beltrami % (Auto) 4.0, Eos % (Auto) 0.8, Baso % (Auto) 0.3, Absolute Neuts (auto) 34.1 H, Absolute Lymphs (auto) 0.91, Nucleated RBC % 0, Differential Comment SCANNED, Diff Path Review May foll Current Medications Acetaminophen (Tylenol) 650 mg PO Q6H PRN PRN PRN Reason: Pain Score 1-10/Temp > 100.7 F Last Admin: 05/03/20 22:29 Dose: 650 mg Documented by: Albuterol Sulfate (Ventolin Aerosols) 2.5 mg INHALATION Q2H PRN PRN PRN Reason: SOB &/OR WHEEZING Albuterol/Ipratropium (Duoneb) 3 ml INHALATION Q6HWA.RT [facility] Atorvastatin Calcium (Lipitor) 10 mg PO QHS [facility] [place] Last Admin: 05/03/20 22:26 Dose: 10 mg Documented by: Budesonide (Pulmicort Aerosol) 0.5 mg INHALATION Q12H.RT [facility] [place] Dextrose (D50w Syringe) 0 gm IV X1 PRN; Protocol PRN Reason: Hypoglycemia Gabapentin (Neurontin) 100 mg PO QHS [facility] [place] Last Admin: 05/03/20 22:26 Dose: 100 mg Documented by: Glucagon () 1 mg IM .X1 PRN PRN Reason: Hypoglycemia Norepinephrine Bitartrate 8 mg (/ Sodium Chloride) 250 mls @ 9.375 mls/hr CONT INF .[id number] MORALES; Protocol Last Titration: 05/04/20 05:45 Dose: 20 mcg/min, 37.5 mls/hr Documented by: Sodium Chloride () 250 mls @ 15 mls/hr IV .[id number] PRN PRN Reason: Saline Flush Last Infusion: 05/04/20 04:02 Dose: 0 mls/hr Documented by: Sodium Chloride () 250 mls @ 15 mls/hr IV .[id number] PRN PRN Reason: Additional IVPB Infusion Vancomycin IV Pharmacy to Dose (1 ea/ Sodium Chloride) 500 mls @ 250 mls/hr IV X1 PRN; Protocol PRN Reason: Rx to Dose Sodium Chloride () 1,000 mls @ 150 mls/hr IV .Q6H40M [facility] [place] Last Admin: 05/04/20 06:20 Dose: 150 mls/hr Documented by: Ondansetron HCl (Zofran) 4 mg IV Q8H PRN PRN PRN Reason: NAUSEA/VOMITING Pantoprazole Sodium (Protonix) 40 mg PO DAILY [facility] [place] Sodium Chloride () 10 - 40 ml IV UD PRN PRN Reason: SALINE FLUSH Trazodone HCl (Desyrel) 50 mg PO QHS [facility] [place] Last Admin: 05/03/20 22:25 Dose: 50 mg Documented by: Vancomycin HCl () 125 mg PO Q6 [facility] [place] Last Admin: 05/04/20 06:20 Dose: 125 mg Documented by: Clinical Impression(s) from Imaging Studies Chest X-Ray 05/03/20 15:21 IMPRESSION: Stable emphysema. No acute thoracic pathology. Electronically Signed: Donald Elder, at 16:18 EDT Tel , Service support , Brain CT 05/03/20 17:18 IMPRESSION: No acute intracranial abnormality. Mild chronic ischemic change. Electronically Signed: Donald Elder, at 18:04 EDT Tel , Service support , Chest X-Ray 05/03/20 23:16 IMPRESSION: No acute cardiopulmonary abnormality. at 0016 Reported and signed by: Adrianne Lopez MD Electronically Signed: Adrianne Lopez MD at 0:16 EDT Tel , Service support , ADDENDUM: 05/04/20 0108 IMPRESSION: No acute cardiopulmonary abnormality. at 0016 Reported and signed by: Adrianne Lopez MD Electronically Signed: Adrianne Lopez MD at 1:01 EDT Tel , Service support , Assessment/Plan Active and Suspected Problems (Last Reviewed 05/03/20 @ 18:[address] Gerry Hurtado, DO) Shock (Acute) JIM (acute kidney injury) (Acute) GI bleed (Acute) RECOMMENDATIONS: 1. Initiate p.o. vancomycin 2. Aggressive fluid resuscitation 3. Wean oxygen as tolerated 4. Hold lisinopril and diclofenac 5. Agree with p.o. PPI 6. Continue bronchodilators, no indication for systemic steroids IMPRESSIONS: 1. Septic shock secondary to C. difficile Patient is a poor historian, but does report recent Levaquin therapy for respiratory compromise. Patient is in contact precautions. Will initiate p.o. vancomycin. Continue aggressive hydration and wean Levophed as necessary. Although femoral line is not ideal, will attempt to continue its use for another 24 to 48 hours. Blood pressure medications have been held. If patient continues to be hypotensive for another 24 hours without improvement in pressor therapy, treatment for relative adrenal insufficiency may be indicated. 2. Acute kidney injury Likely multifactorial prerenal etiology. Lisinopril and diclofenac will be held. Patient will receive aggressive fluid resuscitation. Continue to monitor renal function and replace electrolytes as necessary. No indication for renal replacement therapy. We will hold off on nephrology consult. 3. Reported GI bleed Unclear etiology. Patient reportedly did have some bright red blood per rectum, but this has resolved. Unclear if this represents a diverticular bleed versus hemorrhoidal bleed. This has resolved, so we will continue to monitor clinically. No indication for every 6 hemoglobins. Clinical suspicion for an element of hemoconcentration on presentation. 4. Probable COPD/malnutrition/advanced age/poor historian/GERD/recent prednisone Complicates care, management, recovery and prognosis. Patient does not appear to be in acute exacerbation of COPD at this time. Agree with PPI given reported GI bleed, but no indication for IV from my perspective. Addendum 3:34 PM: Patient did well through the day. Patient was able to come off of Levophed this morning and was doing well. However, at approximately 2:40 PM, patient was rolled around to potentially remove central line. Patient started to complain of chest pain and was found to be in V. tach versus A. fib with aberrancy. Patient was then diaphoretic. There was no loss of pulse. I was called emergently to the room. Patient was given 6 and 12 mg of adenosine with subsequent dosing with what appeared to be A. fib. Patient is currently in sinus rhythm on a nonrebreather with significant improvement in symptoms. Patient does remain hypotensive and did not respond to a fluid bolus challenge. Patient will be placed back on pressor therapy. Dr. Avilez was called to the bedside to help with interpretation. He has ordered an echocardiogram to be done immediately. These results are still pending. Chest x-ray did show some increased cephalization. Unclear if patient is having an element of flash pulmonary edema. Patient is a DNR Comfort Care arrest with intubation. This wa s confirmed with the patient. TIME: 85 minutes critical care time spent addressing patient's septic shock, acute kidney injury, review of all data and collaboration with care team (5:30 AM to 6:30 AM, 2:40 PM to 3:36 PM) Procedures: 40339 Critial Care Addl 30 Min 9xxxx: [id number] Critical care first hour
[2020-05-04] MEDS: Budesonide Respules 0.5 MG/2 ML AMPUL.NEB. INHALATION ×2 (07:20→18:44)
[2020-05-04] MEDS: Ipratropium/Albuterol Sulfate 3 ML AMPUL.NEB INHALATION ×3 (07:20→18:44)
--- NOTE | 2020-05-04 09:32 | PCM.PN.HOSP ---
Patient Problems: Active and Suspected Problems (Last Reviewed 05/03/20 @ 18:[address] Gerry Hurtado, DO) Shock (Acute) JIM (acute kidney injury) (Acute) GI bleed (Acute) Subjective: Doing well, has not had any further diarrhea. Denies any significant abdominal pain. Vitals/I&O's: Vital Signs Temp Pulse Resp BP Pulse Ox 98.5 F 89 20 H 145/51 H 98 05/04/20 04:00 05/04/20 09:15 05/04/20 09:15 05/04/20 09:15 05/04/20 09:15 Oxygen Flow Rate (L/min) 2 Oxygen Delivery Method Nasal Cannula Weight: 95 lb 0.308 oz Body Mass Index (BMI) 18.1 Intake and Output for Last 24 Hours 05/02/20 05/03/20 05/04/20 23:59 23:59 23:59 Intake Total 2470.75 / 2477.78 1660.13 / 1660.13 Output Total 575 / 575 1000 / 1000 Balance 1895.75 / 1902.78 660.13 / 660.13 General: Alert, Oriented x3, Cooperative, No apparent distress HEENT: Atraumatic, PERRLA, EOMI, Normocephalic Oral: Dry Mucosa Neck: Supple, No JVD Lungs: Clear to auscultation, Normal air movement, No rhonchi, No wheeze, No rales Cardiovascular: Regular rate, Regular Rhythm, Normal S1, Normal S2, No murmurs Abdomen: Soft, Non Tender, Non-Distended, No Hepato-splenomegaly Extremities: No edema, Capillary Refill Less than 3 Seconds Skin: No rashes, No breakdown Neurological: Neuro grossly intact, Sensory exam intact to light touch and pain Psych/Mental Status: Normal Affect, Appropriate Microbiology Past 72 Hours 05/03/20 20:05 Stool C. difficile GDH Antigen & Toxins - Final 05/03/20 20:05 Stool C. difficile DNA Amplification - Final 05/03/20 20:05 Stool Stool Lactoferrin - Final Laboratory Results 05/03/20 15:20: Lactic Acid 3.8 H* 05/03/20 15:20: WBC 33.4 H*, RBC 4.25, Hgb 13.7, Hct 42.3, MCV 99.5 H, MCH 32.2 H, MCHC 32.4, RDW Std Deviation 49.8 H, RDW Coeff of Ashu 13.7, Plt Count 294, MPV 10.0, Immature Gran % (Auto) 2.400 H, Neut % (Auto) 92.1 H, Lymph % (Auto) 2.3 L, Maries % (Auto) 2.8, Eos % (Auto) 0.2, Baso % (Auto) 0.2, Absolute Neuts (auto) 30.7 H, Absolute Lymphs (auto) 0.77 L, Nucleated RBC % 0, Differential Comment COMMENT, Diff Path Review February foll, Platelet Estimate ADEQUATE, Hypochromasia RARE 05/03/20 15:20: Sodium 132 L, Potassium 5.0, Chloride 97 L, Carbon Dioxide 26.0, Anion Gap 9, BUN 34 H, Creatinine 2.44 H, Estim Creat Clear Calc 14.03, Est GFR (MDRD) Af Amer 25 L, Est GFR (MDRD) Non-Af 21 L, BUN/Creatinine Ratio 13.9, Glucose 84, Calcium 8.2 L, Total Bilirubin 0.90, AST 22, ALT 17, Alkaline Phosphatase 67, Troponin I 0.044, Total Protein 5.9 L, Albumin 2.8 L, Globulin 3.1, Albumin/Globulin Ratio 0.9 05/03/20 15:20: Blood Type O POSITIVE, Antibody Screen NEGATIVE 05/03/20 16:21: Specimen Type ART, Sample Site L BRACHIAL, pH 7.36, Bicarbonate Actual 20.5 L, POC Total CO2 22, Base Excess -5 L, O2 Saturation 95, ABG pCO2 36.1, ABG pO2 77, Eriberto Test NA, O2 Delivery Device Nasal Can, Liter Flow 2.0, Blood Gas Notified Whom ED , Blood Gas Notified Time 1616 05/03/20 16:30: Urine Color Yellow, Urine Clarity Clear, Urine pH 6.0, Ur Specific [place] 1.010, Urine Protein 15 H, Urine Glucose (UA) Normal, Urine Ketones Negative, Urine Occult Blood Negative, Urine Nitrite Negative, Urine Bilirubin Negative, Urine Urobilinogen Normal, Ur Leukocyte Esterase 25 H, Urine RBC 0 SEEN, Urine WBC 0-5 SEEN, Ur Squamous Epith Cells 0-5 SEEN, Urine Bacteria 0 SEEN, Urine Mucus 0 SEEN 07/06/20 16:50: PT 14.5, INR 1.2, APTT 32.7 05/03/20 18:20: COVID-19 (LOGAN) Not Detected 05/03/20 20:40: Lactic Acid 1.9 05/03/20 21:20: Vitamin D 25-Hydroxy 57.7 05/03/20 21:20: Troponin I 0.089 H 05/03/20 21:20: Hgb 11.7 L, Hct 36.2 L 05/03/20 23:50: Troponin I 0.102 H 05/04/20 03:45: Sodium 134 L, Potassium 4.4, Chloride 106, Carbon Dioxide 22.0, Anion Gap 6, BUN 30 H, Creatinine 1.73 H, Estim Creat Clear Calc 19.20, Est GFR (MDRD) Af Amer 37 L, Est GFR (MDRD) Non-Af 31 L, BUN/Creatinine Ratio 17.3, Glucose 88, Calcium 7.1 L 05/04/20 03:45: WBC 37.2 H*, RBC 3.63 L, Hgb 11.8 L, Hct 36.3 L, MCV 100.0 H, MCH 32.5 H, MCHC 32.5, RDW Std Deviation 50.5 H, RDW Coeff of Ashu 13.8, Plt Count 245, MPV 9.2, Immature Gran % (Auto) 0.900, Neut % (Auto) 91.6 H, Lymph % (Auto) 2.4 L, Maries % (Auto) 4.0, Eos % (Auto) 0.8, Baso % (Auto) 0.3, Absolute Neuts (auto) 34.1 H, Absolute Lymphs (auto) 0.91, Nucleated RBC % 0, Differential Comment SCANNED, Diff Path Review May foll Current Medications Acetaminophen (Tylenol) 650 mg PO Q6H PRN PRN PRN Reason: Pain Score 1-10/Temp > 100.7 F Last Admin: 05/03/20 22:29 Dose: 650 mg Documented by: Albuterol Sulfate (Ventolin Aerosols) 2.5 mg INHALATION Q2H PRN PRN PRN Reason: SOB &/OR WHEEZING Albuterol/Ipratropium (Duoneb) 3 ml INHALATION Q6HWA.RT MORALES Last Admin: 05/04/20 07:20 Dose: 3 ml Documented by: Atorvastatin Calcium (Lipitor) 10 mg PO QHS [facility] Last Admin: 05/03/20 22:26 Dose: 10 mg Documented by: Budesonide (Pulmicort Aerosol) 0.5 mg INHALATION Q12H.RT [facility] Last Admin: 05/04/20 07:20 Dose: 0.5 mg Documented by: Dextrose (D50w Syringe) 0 gm IV X1 PRN; Protocol PRN Reason: Hypoglycemia Gabapentin (Neurontin) 100 mg PO QHS [facility] Last Admin: 05/03/20 22:26 Dose: 100 mg Documented by: Glucagon () 1 mg IM .X1 PRN PRN Reason: Hypoglycemia Norepinephrine Bitartrate 8 mg (/ Sodium Chloride) 250 mls @ 9.375 mls/hr CONT INF .[id number] [facility]; Protocol Last Titration: 05/04/20 09:15 Dose: 5 mcg/min, 9.4 mls/hr Documented by: Sodium Chloride () 250 mls @ 15 mls/hr IV .[id number] PRN PRN Reason: Saline Flush Last Infusion: 05/04/20 04:02 Dose: 0 mls/hr Documented by: Sodium Chloride () 250 mls @ 15 mls/hr IV .[id number] PRN PRN Reason: Additional IVPB Infusion Sodium Chloride () 1,000 mls @ 150 mls/hr IV .[id number] [facility] Last Admin: 05/04/20 06:20 Dose: 150 mls/hr Documented by: Ondansetron HCl (Zofran) 4 mg IV Q8H PRN PRN PRN Reason: NAUSEA/VOMITING Pantoprazole Sodium (Protonix) 40 mg PO DAILY [facility] Sodium Chloride () 10 - 40 ml IV UD PRN PRN Reason: SALINE FLUSH Trazodone HCl (Desyrel) 50 mg PO QHS [facility] Last Admin: 05/03/20 22:25 Dose: 50 mg Documented by: Vancomycin HCl () 125 mg PO Q6 [facility] Last Admin: 05/04/20 06:20 Dose: 125 mg Documented by: STROKE Vital Signs/Narrative: Vital Signs Pulse Resp BP Pulse Ox 05/04/20 09:15 89 20 H 145/51 H 98 05/04/20 09:00 89 18 101/62 97 05/04/20 08:45 81 20 H 113/56 L 98 07/07/20 08:30 84 18 92/53 L 98 05/04/20 08:15 80 18 128/55 H 98 05/04/20 08:00 81 17 126/55 H 96 05/04/20 07:45 82 17 128/42 H 97 05/04/20 07:40 73 05/04/20 07:30 74 19 H 141/47 H 98 05/04/20 07:20 79 16 96 05/04/20 07:00 75 14 128/50 H 98 05/04/20 06:45 127/51 H 05/04/20 06:30 107/40 L 05/04/20 06:15 72 106/35 L 05/04/20 06:00 74 13 116/42 L 96 05/04/20 05:45 73 113/32 L Medical Necessity - Tobacco Use Smoking Status: Former smoker Assessment/Plan All Active Problems (Last Reviewed 05/03/20 @ 18:[address] Gerry Hurtado, DO) Hypoxia (Acute) Shock (Acute) JIM (acute kidney injury) (Acute) GI bleed (Acute) Guaiac positive stools (Acute) Acute diarrhea (Acute) 1. Septic versus hypovolemic shock secondary to C. difficile diarrhea/JIM -Still on pressors however this is getting better -She was resuscitated with 30 cc/kg of IV fluids in the ER plus maintained on 150 cc/h of normal saline -Continue with p.o. vancomycin, the C. difficile test came back positive for DNA and antigen but negative for toxin -COVID testing is negative -She did have a slight increase in her leukocytosis 37,000, will continue to monitor -And on admission was 2.44 down to 1.73 today. We will continue to monitor and continue with IV fluids -Due to hold her nephrotoxic drugs 2. History of a GI bleed/GERD -Hemoglobin is stable at 11.8 today -Continue with her PPI 3. COPD -Currently not in exacerbation -Continue with her home inhalers 4. HTN/HLD -She is currently on blood pressure support with pressors which is improving with IV fluids and treatment of her C. difficile -Continue to hold her lisinopril -Continue with her Lipitor DVT: SCDs Inpatient E&M: 59102 [facility] Hosp L2
--- NOTE | 2020-05-04 09:39 | CASEMGMT ---
RN CM Assessment Note Intro role of CM to patient in room. She is awake, alert and able to participate in assessment. Pt states she wants to leave today. RN CM let her know she could speak with physician, but she still requires inpatient treatment today with monitoring her blood pressure, IV antibiotics and awaiting cultures. Pt stated I know. Pt states she is generally independent @ home, and her son is there to assist if needed. Presentation: Diarrhea, septic shock Diagnosis: likely C-diff PCP: Dr. Peace Insurance: [facility] Preferred [facility]acy: [facility] Pres[facility] Benefit: yes LNOK: Son rafael, lives with patient. Living Arrangements: Lives in multi-story home. States she is independent in ADL's, and son Rafael assists with internet application developer. fPt denies difficulty with stairs, states it's good exercise for me. Tranportation: drives DME: States no longer has home oxygen. Has nebulizer, otherwise does not use ambulatory DME. HHC: none SNF: none Patient DC Goals: Home DC Plan: anticipate home on discharge. Pt denies requiring any assistance or concerns.Sammie JOSEPHN RN ACM
[2020-05-04] MEDS: Pantoprazole Sodium 40 MG Tablet PO (10:14)
[2020-05-04 12:04] LABS: Pathologist Review Reviewed
[2020-05-04 12:05] LABS: Pathologist Review Reviewed
--- NOTE | 2020-05-04 14:51 | EKG12_ITS ---
Test Reason : CP Blood Pressure : / mmHG Vent. Rate : 122 BPM Atrial Rate : 122 BPM P-R Int : 000 ms QRS Dur : 086 ms QT Int : 264 ms P-R-T Axes : 000 012 033 degrees QTc Int : 376 ms Probable Atrial Fibrillation Low voltage QRS Anteroseptal infarct , possibly acute Abnormal ECG When compared with ECG of 03-MAY-2020 15:31, MANUAL COMPARISON REQUIRED, DATA IS UNCONFIRMED Confirmed by CHIKA CEJA, YOLY ([id number]), subeditor GABRIELLA IRAHETA ([id number]) on 05/10/2020 3:29:31 PM Referred By: REMY Confirmed By:YOLY FARR MD
--- NOTE | 2020-05-04 15:18 | ECHOD_ITS ---
Reason For Study: AFIB Procedure This was a 2D Doppler, Color Flow transthoracic echocardiogram. The study was technically difficult. Exam performed portable in ICU/CCU. Left Ventricle Normal LV size. Mild segmental systolic dysfunction (see wall motion). The estimated ejection fraction is 45 %. Mid-Anterior : Hypokinetic. Mid-Lateral : Hypokinetic. Mid-Posterior: Hypokinetic. Mid-Inferior: Hypokinetic. Mid-inferoseptal : Hypokinetic. Mid-anteroseptal : Hypokinetic. Right Ventricle Normal RV size. Normal systolic function. Atria Normal left atrium. Normal right atrium. No doppler evidence for ASD. Mitral Valve There is no mitral annular calcification. Anterior leaflet diffuse mitral valve thickening. The mitral papillary muscle appears thickened and/or calcified. Trivial mitral valve insufficiency. Tricuspid Valve Normal tricuspid valve. Mild tricuspid valve insufficiency. Right ventricular systolic pressure estimated to be 27 mmHg. Aortic Valve Trisinus/trileaflet aortic valve. Mild focal aortic valve calcification. Pulmonic Valve The pulmonic valve is not well visualized. Great Vessels Normal sized aortic root. Pericardium/Pleural Trivial pericardial effusion. There are no echocardiographic indications of cardiac tamponade. MMode/2D Measurements & Calculations LVIDd: 2.9 cm IVSd: 0.70 cm Ao root diam: 3.2 cm LVIDs: 2.4 cm LVPWd: 0.75 cm RVDd: 2.8 cm FS: 19.2 % LAV(MOD-sp4): 39.9 ml LVAd ap4: 19.0 cm2 SV(MOD-sp4): 20.7 ml EDV(MOD-sp4): 46.5 ml EDV(sp4-el): 48.7 ml LVAs ap4: 12.9 cm2 ESV(MOD-sp4): 25.8 ml ESV(sp4-el): 26.5 ml EF(MOD-sp4): 44.5 % EF(sp4-el): 45.6 % SV(sp4-el): 22.2 ml LA A4 area: 15.9 cm2 LA dimension(2D): 3.5 cm RA A4 area: 8.2 cm2 Time Measurements MV dec time: 0.16 sec Doppler Measurements & Calculations MV E max j luis: 88.0 cm/sec Lat Peak E' J Luis: 5.0 cm/sec Med Peak E' J Luis: 7.4 cm/sec MV A max j luis: 77.1 cm/sec E/E' lat: 17.7 E/E' med: 11.9 MV E/A: 1.1 Ao V2 max: 126.9 cm/sec LV V1 max: 99.2 cm/sec PA V2 max: 80.7 cm/sec Ao max P.4 mmHg LV V1 max P.9 mmHg TR max j luis: 216.5 cm/sec TR max P.7 mmHg Interpretation Summary The study was technically difficult. Mild segmental systolic dysfunction (see wall motion). The estimated ejection fraction is 45 %. Anterior leaflet diffuse mitral valve thickening. The mitral papillary muscle appears thickened and/or calcified. Trivial mitral valve insufficiency. Mild tricuspid valve insufficiency. Mild focal aortic valve calcification. Trivial pericardial effusion. There are no echocardiographic indications of cardiac tamponade. Right ventricular systolic pressure estimated to be 27 mmHg. Transmitral diastolic flow velocities suggest diastolic dysfunction (pseudonormal pattern). Ordering Physician: Armin Avilez Referring Physician: KIM PÉREZ Performed By: Analisa Thomas, RDCS, RVT
--- NOTE | 2020-05-04 15:20 | RAD_ITS ---
STUDY: X-RAY CHEST REASON FOR EXAM: Female, 74 years old. Shortness of breath TECHNIQUE: Frontal view of the chest COMPARISON: 05/03/2020 FINDINGS: There are stable emphysematous changes with biapical scarring. There are no pulmonary infiltrates or pleural effusions. There is no pneumothorax. The heart is normal in size. Again noted is fusion hardware in the cervical spine. RAD/Chest 1 View (Portable) IMPRESSION: No acute thoracic pathology. Electronically Signed: Donald Elder, at 16:12 EDT Tel , Service support ,
[2020-05-04 15:22] LABS: Absolute Lymphocyte Count 1.11 X10^3/uL (0.83-4.51); Absolute Neutrophil Count 22.3 X10^3/uL (2.0-7.7); Basophil# 0.05 X10^3/uL; Basophil% 0.2 % (0-1); Eosinophil# 0.35 X10^3/uL; Eosinophils% 1.4 % (0-5); Hematocrit 37.3 % (37-47); Hemoglobin 11.8 g/dL (12.0-15.0); Lymphocyte # 1.11 X10^3/ul (4.0); Lymphocyte % 4.4 % (19-41); Mean Corp Hgb Conc 31.6 g/dL (32-36); Mean Corpuscular Hgb 32.2 pg (27.0-32.0); Mean Corpuscular Volume 101.6 fL (81-99); Mean Platelet Vol. 9.7 fl (6.2-12.0); Monocyte# 1.02 X10^3/uL; Monocyte% 4.1 % (0-10); NRBC Flagged by Analyzer 0 % (0-5); Neutrophil # 22.32 X10^3/uL (2.7-7.7); POSITIVE DIFFERENTIAL YES; Platelet Count 230 K/mm3 (150-450); RBC Distribution Width CV 13.5 % (11.6-14.6); RBC Distribution Width SD 50.9 fl (35.1-43.9); Red Blood Count 3.67 M/mm3 (4.2-5.4); White Blood Count 25.1 K/mm3 (4.4-11.0)
[2020-05-04 15:27] LABS: Differential Indicated SCAN CRITERIA MET
[2020-05-04] MEDS: Acetaminophen 325 MG Tablet 650 MG PO (15:27)
[2020-05-04 15:36] LABS: Phosphorus 3.7 mg/dL (2.5-4.9)
[2020-05-04 15:48] LABS: Anion Gap 7 (5-15); BUN 25 mg/dL (7-18); BUN/Creat Ratio 15.7 RATIO (10-20); Calcium,Total 7.1 mg/dL (8.5-10.1); Chloride 107 mmol/L (98-107); Creatinine, Serum 1.59 mg/dL (0.55-1.02); EST Glomerular Filtration Rate 34 mL/min (>60); Est Glom Filt Rate - Afr Amer 41 mL/min (>60); Estimated Creatinine Clearance 21.44 ml/min; Glucose 99 mg/dL (74-106); Potassium 3.9 mmol/L (3.5-5.1); Sodium Level 134 mmol/L (136-145)
--- NOTE | 2020-05-04 15:49 | CHAPLAIN ---
Type of Pastoral Visit ___ Initial Visit ___ Follow-up Visit ___ On-call Visit ___ General Patient Visit ___ Spiritual Assessment ___ Family Conference ___ Bereavement _x__ Rapid Response ___ Code Blue ___ Other (describe below) Pastoral Care Referral From ___ Patient ___ Family ___ Nurse ___ Physician ___ Tiler'S Assistant ___ Truant Officer _x__ Other (describe below) Sacrament/Intervention ___ Active listening ___ Anointing ___ Confucianist ___ Bereavement ___ Communion ___ Laura exploration ___ ___ Life review ___ Prayer ___ Reconciliation ___ Sacrament of Sick _x__ Supportive presence ___ Wedding ___ Other (describe below) Pastoral Comments responded to stroke alert; medical team is involved; pt is alert at this time and no family is present; pt will be having more testing done immediately; did not have opportunity for further support at this time
[2020-05-04 15:55] LABS: Crenated RBC 1+; Differential Comment SCANNED
--- NOTE | 2020-05-04 16:22 | EKG12_ITS ---
Test Reason : CP Blood Pressure : / mmHG Vent. Rate : 095 BPM Atrial Rate : 095 BPM P-R Int : 130 ms QRS Dur : 072 ms QT Int : 342 ms P-R-T Axes : 081 -19 068 degrees QTc Int : 429 ms Normal sinus rhythm with sinus arrhythmia Low voltage QRS Septal infarct , age undetermined Abnormal ECG When compared with ECG of 04-MAY-2020 14:51, MANUAL COMPARISON REQUIRED, DATA IS UNCONFIRMED Confirmed by CHIKA CEJA, YOLY ([id number]), non linear editor CATHERINE CARBAJAL ([id number]) on 05/10/2020 1:24:45 PM Referred By: DECLAN Confirmed By:YOLY FARR MD
--- NOTE | 2020-05-04 18:33 | CON.PCM_ITS ---
Problem List (1) NSTEMI (non-ST elevated myocardial infarction) Status: Acute (2) Cardiac dysrhythmia Status: Acute (3) Cardiomyopathy Status: Acute (4) Shock Status: Acute (5) GI bleed Status: Acute (6) JIM (acute kidney injury) Status: Acute (7) COPD (chronic obstructive pulmonary disease) Status: Chronic (8) HLD (hyperlipidemia) Status: Chronic Reason for Consult Date of Consultation: 05/04/20 History of Present Illness: The patient is a 74 year old white female with report of no past cardiovascular history who presented for concerns of loose bowel movement, hematochezia, acute renal insufficiency, COPD, and subsequent concerns of C. difficile positive who is referred for evaluation of acute cardiac dysrhythmia and findings compatible with an acute non-ST segment elevation ID. The patient has been undergoing evaluation and care in the ICU. She was noted to develop an acute cardiac dysrhythmia that was thought to be a wide-complex tachycardia. She noted at that time feeling chest discomfort as well as being more short of breath and dyspneic. She was also noted to be hypotensive. She had an ECG that suggested an underlying irregular rhythm potentially compatible with ectopic atrial tachycardia or multifocal atrial tachycardia with ventricular ectopy. Her cardiac rhythm strip suggested a combination of an underlying ectopic atrial r hythm with aberrancy as well as episodes appearing compatible with nonsustained ventricular tachycardia. She was evaluated and treated with IV adenosine by the ICU staff. She was subsequently noted to have the appearance of an underlying sinus rhythm. A follow-up ECG demonstrated sinus rhythm with low voltage QRS with poor R wave progression and a septal ID pattern of indeterminate age. A chest x-ray was noted that suggested an element of increased pulmonary vascularity as well as findings compatible with COPD. The patient was treated with IV fluids and was placed on IV levophed to support her blood pressure. Of note the patient had been previously on IV Levophed which had recently been weaned off. During this time the patient was not reported by the ICU staff is being hypoxic prior to her event but was noted to be transiently hypoxic during the event. Following stabilization of the patient's cardiac rhythm the patient noted that her chest discomfort and her shortness of breath appeared to be improved. She was noted to be febrile. A follow-up transthoracic echocardiogram was performed which demonstrated left ventricular regional wall motion abnormalities with a mild diminished LV systolic function/LVEF (please see official report below). The patient was noted to have had a previous indeterminate troponin I level which upon repeat became positive and increased. The patient has been noted to request DNR CC a-with an allowance for intubation- status. Of note, the patient has been evaluated for COVID-19 which was reported as nonreactive. [] Past Medical History Allergies/Adverse Reactions: Allergies Sulfa (Sulfonamide Antibiotics) Allergy (Verified 05/03/20 15:21) FACE GETS RED AND ITCHY codeine Adverse Reaction (Verified 05/03/20 15:21) Nausea Home Medications: Ambulatory Orders Medication Instructions Recorded Albuterol Sulfate [Ventolin Hfa] 1 - 2 puff INHALATION Q4H PRN 11/26/17 Atorvastatin Calcium [Lipitor] 10 mg PO QHS 11/26/17 Diclofenac [Voltaren] 75 mg PO BIDCM 11/26/17 Gabapentin [Neurontin] 600 mg PO QHS 11/26/17 Albuterol Aerosols [Ventolin 2.5 mg INHALATION Q2H PRN PRN #1 11/28/17 Aerosols] box Fluticasone/Umeclidin/Vilanter 1 puff IH DAILY 10/16/18 [Trelegy Ellipta 100-62.5-25] Famotidine [Pepcid] 20 mg PO QHS 10/30/19 Trazodone HCl 50 mg PO QHS 10/30/19 Lisinopril 5 mg PO QHS 11/05/19 Prednisone See Taper PO UD 11/05/19 Azithromycin 250 mg PO DAILY 05/03/20 Past Medical History (Chronic Problems): Chronic Problems (Last Reviewed 05/03/20 @ 18:[address] 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 Gerry Hurtado DO) Father Kidney disease Sister Breast cancer Sister Cancer History Items: Heart Disease Paternal Family History: Family History (Last Reviewed 05/03/20 @ 18:[address] Gerry Jopperi, DO) Father Kidney disease Sister Breast cancer Sister Cancer History Items: Renal Disease Smoking Status: Former smoker Alcohol: None Drugs: None Review of Systems - Review of Systems General: Reports: Fever. Denies: Fatigue, Night Sweats Cardiovascular: Reports: Chest Discomfort, Chest Discomfort at Rest, Shortness of Breath, Shortness of Breath at Rest. Denies: Orthopnea, PND, Peripheral Edema, Palpitations, Lightheadedness, Dizziness, Near Syncope, Syncope Respiratory: Reports: Shortness of Breath. Denies: Cough, Sputum Production, Hemoptysis Gastrointestinal: Reports: Hematochezia. Denies: Hematemesis, Melena Genitourinary: Denies: Dysuria, Hematuria Skin: Denies: Rash Subjectve: This is a thin cachectic appearing 74-year-old white female who appears to be using accessory respiratory muscles at the time of her event/evaluation. Objective: Vital Signs Temp Pulse Resp BP Pulse Ox 98.4 F 74 12 95/42 L 100 05/04/20 12:00 05/04/20 18:08 05/04/20 18:08 05/04/20 18:08 05/04/20 18:08 Oxygen Flow Rate (L/min) 4 Oxygen Delivery Method Nasal Cannula Weight: 95 lb 0.308 oz Body Mass Index (BMI) 18.1 Intake and Output for Last 24 Hours 05/02/20 05/03/20 05/04/20 23:59 23:59 23:59 Intake Total 2470.75 / 2477.78 3920.77 / 3920.77 Output Total 575 / 575 1999 Balance 1895.75 / 1902.78 1920.77 / 1920.77 General: Awake, Alert, Oriented x 3, Cooperative, Ill Appearing HEENT: Atraumatic, Normocephalic, PERRL, EOMI, Sclera Non Icteric Oral: Moist Mucosa Neck: Supple, Good ROM, No JVD Lungs: Diminished Kee Bases Cardiovascular: Regular Rhythm, Premature Ectopic Beats, Normal S1, Normal S2 Abdomen: Bowel Sounds Present, Soft Extremities: No edema Neurological: No Focal Motor or Sensory Deficit Psych/Mental Status: Anxious 05/03/20 20:40: Lactic Acid 1.9 05/03/20 21:20: Troponin I 0.089 H 05/03/20 21:20: Hgb 11.7 L, Hct 36.2 L 05/03/20 23:50: Troponin I 0.102 H 05/04/20 03:45: Sodium 134 L, Potassium 4.4, Chloride 106, Carbon Dioxide 22.0, Anion Gap 6, BUN 30 H, Creatinine 1.73 H, Est GFR (MDRD) Af Amer 37 L, Est GFR (MDRD) Non-Af 31 L, BUN/Creatinine Ratio 17.3, Glucose 88, Calcium 7.1 L 05/04/20 03:45: WBC 37.2 H*, RBC 3.63 L, Hgb 11.8 L, Hct 36.3 L, MCV 100.0 H, MCH 32.5 H, MCHC 32.5, Plt Count 245, MPV 9.2, Immature Gran % (Auto) 0.900, Neut % (Auto) 91.6 H, Lymph % (Auto) 2.4 L, Miller % (Auto) 4.0, Eos % (Auto) 0.8, Baso % (Auto) 0.3, Absolute Neuts (auto) 34.1 H, Nucleated RBC % 0 05/04/20 15:10: WBC 25.1 H, RBC 3.67 L, Hgb 11.8 L, Hct 37.3, MCV 101.6 H, MCH 32.2 H, MCHC 31.6 L, Plt Count 230, MPV 9.7, Immature Gran % (Auto) 0.900, Neut % (Auto) 89.0 H, Lymph % (Auto) 4.4 L, Miller % (Auto) 4.1, Eos % (Auto) 1.4, Baso % (Auto) 0.2, Absolute Neuts (auto) 22.3 H, Nucleated RBC % 0 05/04/20 15:10: Sodium 134 L, Potassium 3.9, Chloride 107, Carbon Dioxide 20.0 L , Anion Gap 7, BUN 25 H, Creatinine 1.59 H, Est GFR (MDRD) Af Amer 41 L, Est GFR (MDRD) Non-Af 34 L, BUN/Creatinine Ratio 15.7, Glucose 99, Calcium 7.1 L, Troponin I 3.190 H* 05/04/20 15:10: Phosphorus 3.7 05/04/20 17:40: Troponin I 26.600 H* Rhythm: Sinus rhythm EKG: As noted above ECHO: Interpretation Summary The study was technically difficult. Mild segmental systolic dysfunction (see wall motion). The estimated ejection fraction is 45 %. Anterior leaflet diffuse mitral valve thickening. The mitral papillary muscle appears thickened and/or calcified. Trivial mitral valve insufficiency. Mild tricuspid valve insufficiency. Mild focal aortic valve calcification. Trivial pericardial effusion. There are no echocardiographic indications of cardiac tamponade. Right ventricular systolic pressure estimated to be 27 mmHg. Transmitral diastolic flow velocities suggest diastolic dysfunction (pseudonormal pattern). Stress Test: Stress Test Report Date: 07/24/2019 Procedure: Pharmacologic stress nuclear imaging study Indications: Dyspnea on exertion Consent: Per the patient Procedure: The patient underwent pharmacologic (Regadenoson) evaluation with a peak heart rate of 75 beats per minute (50 %predicted maximal heart rate) and a peak blood pressure of 144/70 mmHg. The baseline ECG demonstrated normal sinus rhythm. EKG during lexiscan infusion revealed significant change from baseline. EKG post infusion revealed significant change from baseline [There were no cardiac dysrhythmias pretest, during pharmacologic infusion, or recovery]. [There was no complaint of chest discomfort during pharmacologic infusion or recovery]. The examination was discontinued secondary to completion of protocol. Impression: 1. Lexiscan stress test test is negative for Lexiscan infusion induced EKG changes of ischemia. 2. Lexiscan stress test test is negative for Lexiscan infusion induced chest pain. 3. Results of the nuclear portion of the test is as below Myocardial perfusion imaging study: Technique: The patient was injected with 11.1 millicuries of technetium 99m Cardiolite and subsequently rest SPECT Cardiolite nuclear imaging was obtained in the horizontal long, vertical long, and short axis views. The patient underwent pharmacologic (Regadenoson) evaluation. Please see above for details. The patient was injected with 32.8 millicuries of technetium 99m Cardiolite and subsequently stress SPECT Cardiolite nuclear imaging was obtained in the horizontal long, vertical long, and short axis views. A gated Cardiolite study at peak stress was obtained. Interpretation: Rest and stress SPECT Cardiolite nuclear imaging status post realignment, normalization, and attenuation correction demonstrate [normal myocardial radioisotope uptake]. Gated images reveal no significant regional wall motion abnormalities. The reported LVEF is greater than 70 %. Impression: 1. There is no evidence of significant ischemia or infarction. 2. Estimated ejection fraction is greater than 70%. CXR: Preliminary chest x-ray report as noted above: Please see official report Assessment/Plan 1. Acute non-ST segment elevation ID The patient demonstrates findings compatible with an acute non-ST segment elevation ID. It is unclear whether this is a type I event versus a type II event being brought out by the patient's noncardiovascular conditions. At the present time she is being monitored. She will continue cardiac enzyme follow-up and ECG follow-up. Her transthoracic echocardiogram has been performed. She will continue medical management. This will include aspirin therapy as well as anticoagulant therapy with IV heparin. If the patient has obvious ongoing gastrointestinal bleeding then her anticoagulant therapy will have to be interrupted. The patient is not a candidate for other agents such as nitrates, beta-blockers, etc. based upon her hypotension. Her hypotension is being supported by IV vasopressor agents at this time. The patient does need to consider whether or not she would want to pursue, at her age, with her multiple medical conditions, and her request to be a DNR [facility] patient barring intubation, further evaluation in a cardiac catheterization laboratory. If she does then noting her multiple medical issues, hemodynamic status, etc. it would not be unreasonable to have the patient evaluated at a tertiary care center. 2. Cardiac dysrhythmia The patient did have cardiac dysrhythmias earlier as noted above. It is unclear whether this was related to an acute coronary syndrome event either primary or secondary versus being a primary cardiac dysrhythmia. At the moment the patient has demonstrated sinus rhythm. The patient is not an ideal candidate for beta-kesha therapy secondary to her ongoing hypotension. The patient can be considered for further antiarrhythmic therapy with IV amiodar one as long as she does not demonstrate evidence of worsening hypotension. 3. Shock The patient was given diagnosis of shock with her initial H&P. This was thought secondary to her underlying gastrointestinal related issues, possible hypovolemia, and hypotension. The patient was treated with IV Levophed support. This was weaned off. She has then progressed as noted above. It is unclear at this time whether her hypotension is related to her initial concerns versus a contribution from her cardiovascular event. At the present time she does need to continue support. This would include IV fluids as deemed appropriate and tolerated. However this also appears to include the need for return to IV vasopressor agents. As there has been concerns that the patient's hypotensive event may not be cardiogenic it is not clear that additional support such as an intra-aortic balloon pump would be beneficial to her-especially if based upon her febrile status and other findings that she has an underlying sepsis syndrome. 4. GI bleed There is concern based upon the patient's initial presentation of hematochezia that she may have evidence of an underlying GI bleeding process. This does make it challenging to care for her acute coronary syndrome event with additional antiplatelet agents as well as anticoagulants, etc. Thus at the present time she is going to be cautiously treated with aspirin therapy and IV heparin. If she demonstrates obvious GI bleeding and decreasing hemoglobin levels then these agents will have to be discontinued and/or reversed. This also makes it challenging to consider the patient for further evaluation in the cardiac catheterization laboratory where, depending upon her findings, she may need not only aspirin therapy but other antiplatelets as well as anticoagulant agents. 5. Acute renal insufficiency The patient's creatinine level was elevated. It did demonstrate some evidence of improvement. This will have to be monitored and taken into consideration with the patient's ongoing evaluation/medical therapy and/or any other procedures that require IV contrast based upon concerns of IV contrast related nephropathy. 6. COPD The patient does have a history of significant underlying COPD. She will continue evaluation care by pulmonology. 7. Hyperlipidemia The patient will continue risk factor evaluation care as deemed appropriate. Comment: The patient's case has been discussed and reviewed with the patient as well as Dr. Marie and Dr. Boo.
[2020-05-04 19:33] LABS: Partial Thromboplast Time 34.5 Seconds (24.1-36.2)
[2020-05-04] MEDS: HEPARIN/D5w 25,000 UNITS 25,000 UNITS/250 ML IV.SOLN. 7 UNITS IV (20:06)
[2020-05-04] MEDS: Heparin Injection (Vial) 5,000 UNIT/ML VIAL 3500 UNIT IV (20:08)
[2020-05-04] MEDS: 0.9% Saline Lock 10 ML Syringe IV (20:26)
[2020-05-04] MEDS: Aspirin E.C. 325 MG Tablet PO (20:26)
[2020-05-04] MEDS: Atorvastatin Calcium 10 MG Tablet PO (21:56)
[2020-05-04] MEDS: traZODone 50 MG Tablet PO (21:57)
[2020-05-04] MEDS: Hydrocortisone Sod Succinate 100 MG/2 ML Vial IV (21:57)
[2020-05-04] MEDS: Gabapentin 100 MG Capsule PO (21:57)
[2020-05-05] VITALS (37 sets, daily range): BP systolic 102–134; BP diastolic 43–98; PULSE 69–112; RESP 16–25; TEMP 36.9–37.5; O2SAT 90–100
[2020-05-05 02:16] LABS: Absolute Lymphocyte Count 0.14 X10^3/uL (0.83-4.51); Absolute Neutrophil Count 24.8 X10^3/uL (2.0-7.7); Basophil# 0.02 X10^3/uL; Basophil% 0.1 % (0-1); Eosinophil# 0.01 X10^3/uL; Hematocrit 34.3 % (37-47); Hemoglobin 10.8 g/dL (12.0-15.0); Lymphocyte # 0.14 X10^3/ul (4.0); Lymphocyte % 0.5 % (19-41); Mean Corp Hgb Conc 31.5 g/dL (32-36); Mean Corpuscular Hgb 31.8 pg (27.0-32.0); Mean Corpuscular Volume 100.9 fL (81-99); Mean Platelet Vol. 9.7 fl (6.2-12.0); Monocyte# 0.39 X10^3/uL; Monocyte% 1.5 % (0-10); NRBC Flagged by Analyzer 0 % (0-5); POSITIVE DIFFERENTIAL YES; Platelet Count 172 K/mm3 (150-450); RBC Distribution Width CV 13.6 % (11.6-14.6); RBC Distribution Width SD 50.4 fl (35.1-43.9); White Blood Count 25.8 K/mm3 (4.4-11.0)
[2020-05-05 02:17] LABS: Differential Indicated SCAN CRITERIA MET
[2020-05-05 02:29] LABS: Partial Thromboplast Time 79.3 Seconds (24.1-36.2)
[2020-05-05 02:38] LABS: Differential Comment SCANNED
[2020-05-05 02:40] LABS: Anion Gap 8 (5-15); BUN 24 mg/dL (7-18); BUN/Creat Ratio 15.5 RATIO (10-20); Chloride 108 mmol/L (98-107); Creatinine, Serum 1.55 mg/dL (0.55-1.02); EST Glomerular Filtration Rate 35 mL/min (>60); Est Glom Filt Rate - Afr Amer 42 mL/min (>60); Estimated Creatinine Clearance 21.99 ml/min; Glucose 129 mg/dL (74-106); Potassium 4.2 mmol/L (3.5-5.1); Sodium Level 134 mmol/L (136-145)
[2020-05-05] MEDS: 0.9% Normal Saline 1,000 ML 150 ML IV (03:51)
[2020-05-05] MEDS: Hydrocortisone Sod Succinate 100 MG/2 ML Vial IV ×2 (05:37→22:18)
--- NOTE | 2020-05-05 05:55 | EKG12_ITS ---
Test Reason : AM EKG Blood Pressure : / mmHG Vent. Rate : 073 BPM Atrial Rate : 073 BPM P-R Int : 136 ms QRS Dur : 072 ms QT Int : 384 ms P-R-T Axes : 074 -13 083 degrees QTc Int : 423 ms Normal sinus rhythm Low voltage QRS Borderline ECG Previous Anteroseptal PR When compared with ECG of 04-MAY-2020 15:15, MANUAL COMPARISON REQUIRED, DATA IS UNCONFIRMED Confirmed by CHIKA CEJA, YOLY ([id number]), editorial project manager CTAHERINE CARBAJAL ([id number]) on 05/10/2020 1:24:31 PM Referred By: DECLAN Confirmed By:YOLY FARR MD
--- NOTE | 2020-05-05 06:38 | PN_ITS ---
Subjective: Patient was significant decompensation yesterday. Overnight, patient was noted to have elevation of troponins. Patient reportedly did discuss with Dr. Avilez and has yet to make a decision on whether she would want transfer to a tertiary center for potential heart intervention. Patient states that she is feeling improved this morning. Patient has been able to come off of pressors and oxygen. No chest pain is reported at this time. General: Alert, Oriented x3, Cooperative, - - Cachectic. Speaking in full sent ences. HEENT: Atraumatic, PERRLA, EOMI, Normocephalic, - - No scleral icterus or injection noted Oral: Moist Mucosa, No Gingival or Mucosal Lesions/ Ulcerations Neck: Supple, No JVD, No Nodes, Trachea Midline Lungs: No rhonchi, No wheeze, No rales, Diminished, - - Fair effort. Symmetric expansion. Cardiovascular: Regular rate, Regular Rhythm, Normal S1, Normal S2, No murmurs, No rub noted, No Gallop, - - Normal sinus rhythm noted on telemetry Abdomen: Bowel Sounds Present, Soft, Non Tender, Non-Distended Extremities: No clubbing, No cyanosis, No edema, Capillary Refill Less than 3 Seconds Skin: - - No change compared to previous Musculoskeletal: No Tenderness to Palpation of Joints or Extremities Lymphatic: No Cervical, Supraclavicular, or Inguinal Adenopathy Neurological: Cranial nerves II-XII grossly intact, Neuro grossly intact, Motor Exam 5/5 strength throughout Psych/Mental Status: Alert and oriented to time, place, person, mood and affect Vital Signs Temp Pulse Resp BP Pulse Ox 37.0 C 88 16 117/54 L 98 05/05/20 06:00 05/05/20 06:00 05/05/20 06:00 05/05/20 06:00 05/05/20 06:00 Oxygen Flow Rate (L/min) 2 Oxygen Delivery Method Room Air Weight: 47.1 kg Body Mass Index (BMI) 18.1 Intake and Output for Last 24 Hours 05/03/20 05/04/20 05/05/20 23:59 23:59 23:59 Intake Total 2470.75 / 2477.78 5183.12 / 5603.90 1528.33 / 1528.33 Output Total 575 / 575 2900 / 2925 450 / 450 Balance 1895.75 / 1902.78 2283.12 / 2678.90 1078.33 / 1078.33 Labs (Last 48 Hours) 05/03/20 05/03/20 05/03/20 15:20 15:20 15:20 WBC 33.4 H* RBC 4.25 Hgb 13.7 Hct 42.3 MCV 99.5 H MCH 32.2 H MCHC 32.4 RDW Std Deviation 49.8 H RDW Coeff of Ashu 13.7 Plt Count 294 MPV 10.0 Immature Gran % (Auto) 2.400 H Neut % (Auto) 92.1 H Lymph % (Auto) 2.3 L Gulf % (Auto) 2.8 Eos % (Auto) 0.2 Baso % (Auto) 0.2 Absolute Neuts (auto) 30.7 H Absolute Lymphs (auto) 0.77 L Nucleated RBC % 0 Differential Comment COMMENT Diff Path Review Reviewed Platelet Estimate ADEQUATE Hypochromasia RARE Crenated Cell PT INR APTT Specimen Type Sample Site pH Bicarbonate Actual POC Total CO2 Base Excess O2 Saturation ABG pCO2 ABG pO2 Eriberto Test O2 Delivery Device Liter Flow Blood Gas Notified Whom Blood Gas Notified Time Sodium 132 L Potassium 5.0 Chloride 97 L Carbon Dioxide 26.0 Anion Gap 9 BUN 34 H Creatinine 2.44 H Estim Creat Clear Calc 14.03 Est GFR (MDRD) Af Amer 25 L Est GFR (MDRD) Non-Af 21 L BUN/Creatinine Ratio 13.9 Glucose 84 Lactic Acid 3.8 H* Calcium 8.2 L Phosphorus Total Bilirubin 0.90 AST 22 ALT 17 Alkaline Phosphatase 67 Troponin I 0.044 Total Protein 5.9 L Albumin 2.8 L Globulin 3.1 Albumin/Globulin Ratio 0.9 Vitamin D 25-Hydroxy Urine Color Urine Clarity Urine pH Ur Specific Granite Urine Protein Urine Glucose (UA) Urine Ketones Urine Occult Blood Urine Nitrite Urine Bilirubin Urine Urobilinogen Ur Leukocyte Esterase Urine RBC Urine WBC Ur Squamous Epith Cells Urine Bacteria Urine Mucus COVID-19 (LOGAN) Blood Type Antibody Screen 05/03/20 05/03/20 05/03/20 15:20 16:21 16:30 WBC RBC Hgb Hct MCV MCH MCHC RDW Std Deviation RDW Coeff of Ashu Plt Count MPV Immature Gran % (Auto) Neut % (Auto) Lymph % (Auto) [place] % (Auto) Eos % (Auto) Baso % (Auto) Absolute Neuts (auto) Absolute Lymphs (auto) Nucleated RBC % Differential Comment Diff Path Review Platelet Estimate Hypochromasia Crenated Cell PT INR APTT Specimen Type ART Sample Site L BRACHIAL pH 7.36 Bicarbonate Actual 20.5 L POC Total CO2 22 Base Excess -5 L O2 Saturation 95 ABG pCO2 36.1 ABG pO2 77 Eriberto Test NA O2 Delivery Device Nasal Can Liter Flow 2.0 Blood Gas Notified Whom ED MD Blood Gas Notified Time 1616 Sodium Potassium Chloride Carbon Dioxide Anion Gap BUN Creatinine Estim Creat Clear Calc Est GFR (MDRD) Af Amer Est GFR (MDRD) Non-Af BUN/Creatinine Ratio Glucose Lactic Acid Calcium Phosphorus Total Bilirubin AST ALT Alkaline Phosphatase Troponin I Total Protein Albumin Globulin Albumin/Globulin Ratio Vitamin D 25-Hydroxy Urine Color Yellow Urine Clarity Clear Urine pH 6.0 Ur Specific Granite 1.010 Urine Protein 15 H Urine Glucose (UA) Normal Urine Ketones Negative Urine Occult Blood Negative Urine Nitrite Negative Urine Bilirubin Negative Urine Urobilinogen Normal Ur Leukocyte Esterase 25 H Urine RBC 0 SEEN Urine WBC 0-5 SEEN Ur Squamous Epith Cells 0-5 SEEN Urine Bacteria 0 SEEN Urine Mucus 0 SEEN COVID-19 (LOGAN) Blood Type O POSITIVE Antibody Screen NEGATIVE 05/03/20 05/03/20 05/03/20 16:50 18:20 20:40 WBC RBC Hgb Hct MCV MCH MCHC RDW Std Deviation RDW Coeff of Ashu Plt Count MPV Immature Gran % (Auto) Neut % (Auto) Lymph % (Auto) [place] % (Auto) Eos % (Auto) Baso % (Auto) Absolute Neuts (auto) Absolute Lymphs (auto) Nucleated RBC % Differential Comment Diff Path Review Platelet Estimate Hypochromasia Crenated Cell PT 14.5 INR 1.2 APTT 32.7 Specimen Type Sample Site pH Bicarbonate Actual POC Total CO2 Base Excess O2 Saturation ABG pCO2 ABG pO2 Eriberto Test O2 Delivery Device Liter Flow Blood Gas Notified Whom Blood Gas Notified Time Sodium Potassium Chloride Carbon Dioxide Anion Gap BUN Creatinine Estim Creat Clear Calc Est GFR (MDRD) Af Amer Est GFR (MDRD) Non-Af BUN/Creatinine Ratio Glucose Lactic Acid 1.9 Calcium Phosphorus Total Bilirubin AST ALT Alkaline Phosphatase Troponin I Total Protein Albumin Globulin Albumin/Globulin Ratio Vitamin D 25-Hydroxy Urine Color Urine Clarity Urine pH Ur Specific Granite Urine Protein Urine Glucose (UA) Urine Ketones Urine Occult Blood Urine Nitrite Urine Bilirubin Urine Urobilinogen Ur Leukocyte Esterase Urine RBC Urine WBC Ur Squamous Epith Cells Urine Bacteria Urine Mucus COVID-19 (LOGAN) Not Detected Blood Type Antibody Screen 05/03/20 05/03/20 05/03/20 21:20 21:20 21:20 WBC RBC Hgb 11.7 L Hct 36.2 L MCV MCH MCHC RDW Std Deviation RDW Coeff of Ashu Plt Count MPV Immature Gran % (Auto) Neut % (Auto) Lymph % (Auto) [place] % (Auto) Eos % (Auto) Baso % (Auto) Absolute Neuts (auto) Absolute Lymphs (auto) Nucleated RBC % Differential Comment Diff Path Review Platelet Estimate Hypochromasia Crenated Cell PT INR APTT Specimen Type Sample Site pH Bicarbonate Actual POC Total CO2 Base Excess O2 Saturation ABG pCO2 ABG pO2 Eriberto Test O2 Delivery Device Liter Flow Blood Gas Notified Whom Blood Gas Notified Time Sodium Potassium Chloride Carbon Dioxide Anion Gap BUN Creatinine Estim Creat Clear Calc Est GFR (MDRD) Af Amer Est GFR (MDRD) Non-Af BUN/Creatinine Ratio Glucose Lactic Acid Calcium Phosphorus Total Bilirubin AST ALT Alkaline Phosphatase Troponin I 0.089 H Total Protein Albumin Globulin Albumin/Globulin Ratio Vitamin D 25-Hydroxy 57.7 Urine Color Urine Clarity Urine pH Ur Specific Granite Urine Protein Urine Glucose (UA) Urine Ketones Urine Occult Blood Urine Nitrite Urine Bilirubin Urine Urobilinogen Ur Leukocyte Esterase Urine RBC Urine WBC Ur Squamous Epith Cells Urine Bacteria Urine Mucus COVID-19 (LOGAN) Blood Type Antibody Screen 05/03/20 05/04/20 05/04/20 23:50 03:45 03:45 WBC 37.2 H* RBC 3.63 L Hgb 11.8 L Hct 36.3 L MCV 100.0 H MCH 32.5 H MCHC 32.5 RDW Std Deviation 50.5 H RDW Coeff of Ashu 13.8 Plt Count 245 MPV 9.2 Immature Gran % (Auto) 0.900 Neut % (Auto) 91.6 H Lymph % (Auto) 2.4 L [place] % (Auto) 4.0 Eos % (Auto) 0.8 Baso % (Auto) 0.3 Absolute Neuts (auto) 34.1 H Absolute Lymphs (auto) 0.91 Nucleated RBC % 0 Differential Comment SCANNED Diff Path Review Reviewed Platelet Estimate Hypochromasia Crenated Cell PT INR APTT Specimen Type Sample Site pH Bicarbonate Actual POC Total CO2 Base Excess O2 Saturation ABG pCO2 ABG pO2 Eriberto Test O2 Delivery Device Liter Flow Blood Gas Notified Whom Blood Gas Notified Time Sodium 134 L Potassium 4.4 Chloride 106 Carbon Dioxide 22.0 Anion Gap 6 BUN 30 H Creatinine 1.73 H Estim Creat Clear Calc 19.20 Est GFR (MDRD) Af Amer 37 L Est GFR (MDRD) Non-Af 31 L BUN/Creatinine Ratio 17.3 Glucose 88 Lactic Acid Calcium 7.1 L Phosphorus Total Bilirubin AST ALT Alkaline Phosphatase Troponin I 0.102 H Total Protein Albumin Globulin Albumin/Globulin Ratio Vitamin D 25-Hydroxy Urine Color Urine Clarity Urine pH Ur Specific Granite Urine Protein Urine Glucose (UA) Urine Ketones Urine Occult Blood Urine Nitrite Urine Bilirubin Urine Urobilinogen Ur Leukocyte Esterase Urine RBC Urine WBC Ur Squamous Epith Cells Urine Bacteria Urine Mucus COVID-19 (LOGAN) Blood Type Antibody Screen 05/04/20 05/04/20 05/04/20 15:10 15:10 15:10 WBC 25.1 H RBC 3.67 L Hgb 11.8 L Hct 37.3 MCV 101.6 H MCH 32.2 H MCHC 31.6 L RDW Std Deviation 50.9 H RDW Coeff of Ashu 13.5 Plt Count 230 MPV 9.7 Immature Gran % (Auto) 0.900 Neut % (Auto) 89.0 H Lymph % (Auto) 4.4 L [place] % (Auto) 4.1 Eos % (Auto) 1.4 Baso % (Auto) 0.2 Absolute Neuts (auto) 22.3 H Absolute Lymphs (auto) 1.11 Nucleated RBC % 0 Differential Comment SCANNED Diff Path Review Platelet Estimate Hypochromasia Crenated Cell 1+ PT INR APTT Specimen Type Sample Site pH Bicarbonate Actual POC Total CO2 Base Excess O2 Saturation ABG pCO2 ABG pO2 Eriberto Test O2 Delivery Device Liter Flow Blood Gas Notified Whom Blood Gas Notified Time Sodium 134 L Potassium 3.9 Chloride 107 Carbon Dioxide 20.0 L Anion Gap 7 BUN 25 H Creatinine 1.59 H Estim Creat Clear Calc 21.44 Est GFR (MDRD) Af Amer 41 L Est GFR (MDRD) Non-Af 34 L BUN/Creatinine Ratio 15.7 Glucose 99 Lactic Acid Calcium 7.1 L Phosphorus 3.7 Total Bilirubin AST ALT Alkaline Phosphatase Troponin I 3.190 H* Total Protein Albumin Globulin Albumin/Globulin Ratio Vitamin D 25-Hydroxy Urine Color Urine Clarity Urine pH Ur Specific Granite Urine Protein Urine Glucose (UA) Urine Ketones Urine Occult Blood Urine Nitrite Urine Bilirubin Urine Urobilinogen Ur Leukocyte Esterase Urine RBC Urine WBC Ur Squamous Epith Cells Urine Bacteria Urine Mucus COVID-19 (LOGAN) Blood Type Antibody Screen 05/04/20 05/04/20 05/04/20 17:40 19:05 20:30 WBC RBC Hgb Hct MCV MCH MCHC RDW Std Deviation RDW Coeff of Ashu Plt Count MPV Immature Gran % (Auto) Neut % (Auto) Lymph % (Auto) [place] % (Auto) Eos % (Auto) Baso % (Auto) Absolute Neuts (auto) Absolute Lymphs (auto) Nucleated RBC % Differential Comment Diff Path Review Platelet Estimate Hypochromasia Crenated Cell PT INR APTT 34.5 Specimen Type Sample Site pH Bicarbonate Actual POC Total CO2 Base Excess O2 Saturation ABG pCO2 ABG pO2 Eriberto Test O2 Delivery Device Liter Flow Blood Gas Notified Whom Blood Gas Notified Time Sodium Potassium Chloride Carbon Dioxide Anion Gap BUN Creatinine Estim Creat Clear Calc Est GFR (MDRD) Af Amer Est GFR (MDRD) Non-Af BUN/Creatinine Ratio Glucose Lactic Acid Calcium Phosphorus Total Bilirubin AST ALT Alkaline Phosphatase Troponin I 26.600 H* 33.800 H* Total Protein Albumin Globulin Albumin/Globulin Ratio Vitamin D 25-Hydroxy Urine Color Urine Clarity Urine pH Ur Specific Granite Urine Protein Urine Glucose (UA) Urine Ketones Urine Occult Blood Urine Nitrite Urine Bilirubin Urine Urobilinogen Ur Leukocyte Esterase Urine RBC Urine WBC Ur Squamous Epith Cells Urine Bacteria Urine Mucus COVID-19 (LOGAN) Blood Type Antibody Screen 05/05/20 05/05/20 05/05/20 02:00 02:00 02:00 WBC 25.8 H RBC 3.40 L Hgb 10.8 L Hct 34.3 L MCV 100.9 H MCH 31.8 MCHC 31.5 L RDW Std Deviation 50.4 H RDW Coeff of Ashu 13.6 Plt Count 172 MPV 9.7 Immature Gran % (Auto) 1.900 H Neut % (Auto) 96.0 H Lymph % (Auto) 0.5 L [place] % (Auto) 1.5 Eos % (Auto) 0.0 Baso % (Auto) 0.1 Absolute Neuts (auto) 24.8 H Absolute Lymphs (auto) 0.14 L Nucleated RBC % 0 Differential Comment SCANNED Diff Path Review Platelet Estimate Hypochromasia Crenated Cell PT INR APTT 79.3 H Specimen Type Sample Site pH Bicarbonate Actual POC Total CO2 Base Excess O2 Saturation ABG pCO2 ABG pO2 Eriberto Test O2 Delivery Device Liter Flow Blood Gas Notified Whom Blood Gas Notified Time Sodium 134 L Potassium 4.2 Chloride 108 H Carbon Dioxide 18.0 L Anion Gap 8 BUN 24 H Creatinine 1.55 H Estim Creat Clear Calc 21.99 Est GFR (MDRD) Af Amer 42 L Est GFR (MDRD) Non-Af 35 L BUN/Creatinine Ratio 15.5 Glucose 129 H Lactic Acid Calcium 7.0 L Phosphorus Total Bilirubin AST ALT Alkaline Phosphatase Troponin I 17.900 H* Total Protein Albumin Globulin Albumin/Globulin Ratio Vitamin D 25-Hydroxy Urine Color Urine Clarity Urine pH Ur Specific Granite Urine Protein Urine Glucose (UA) Urine Ketones Urine Occult Blood Urine Nitrite Urine Bilirubin Urine Urobilinogen Ur Leukocyte Esterase Urine RBC Urine WBC Ur Squamous Epith Cells Urine Bacteria Urine Mucus COVID-19 (LOGAN) Blood Type Antibody Screen Microbiology 05/04/20 04:00 Stool Enteric Bacteriology - Final 05/03/20 16:30 Urine Catheter - Cullen Urine Culture - Preliminary Culture exhibits no growth. 05/03/20 20:05 Stool C. difficile GDH Antigen & Toxins - Final 05/03/20 20:05 Stool C. difficile DNA Amplification - Final 05/03/20 20:05 Stool Stool Lactoferrin - Final Clinical Impression(s) from Imaging Studies Chest X-Ray 05/04/20 15:20 IMPRESSION: No acute thoracic pathology. Electronically Signed: Donald Elder, at 16:12 EDT Tel , Service support , Medical Necessity - Tobacco Use Smoking Status: Former smoker Assessment/Plan All Active Problems (Last Reviewed 05/03/20 @ 18:[address] Gerry Hurtado, DO) Hypoxia (Acute) Shock (Acute) JIM (acute kidney injury) (Acute) GI bleed (Acute) NSTEMI (non-ST elevated myocardial infarction) (Acute) Cardiac dysrhythmia (Acute) Cardiomyopathy (Acute) Guaiac positive stools (Acute) Acute diarrhea (Acute) RECOMMENDATIONS: 1. Continue p.o. vancomycin 2. Continue systemic anticoagulation pending patient decision 3. Wean oxygen as tolerated 4. Okay to use low-dose beta-kesha and aspirin from a critical care perspective 5. Agree with p.o. PPI 6. Continue bronchodilators, no indication for systemic steroids IMPRESSIONS: 1. Septic shock secondary to C. difficile Patient is a poor historian, but does report recent azithromycin therapy for respiratory compromise. Patient is in contact precautions. Will continue empiric p.o. vancomycin. Although femoral line is not ideal, will attempt to continue its use for another 24 to 48 hours pending decision for cardiac intervention. Blood pressure medications have been held. 2. Acute kidney injury Likely multifactorial prerenal etiology. Lisinopril and diclofenac will be held. Patient will receive aggressive fluid resuscitation. Continue to monitor renal function and replace electrolytes as necessary. No indication for renal replacement therapy. We will hold off on nephrology consult. No significant improvement in creatinine, but patient did have acute myocardial infarction yesterday. We will continue to monitor 3. Reported GI bleed Unclear etiology. Patient reportedly did have some bright red blood per rectum, but this has resolved. Unclear if this represents a diverticular bleed versus hemorrhoidal bleed. This has resolved, so we will continue to monitor clinically. No indication for every 6 hemoglobins. Clinical suspicion for an element of hemoconcentration on presentation. 4. Non-ST elevation CT Patient with V. tach and apparent non-ST elevation CT yesterday afternoon. Patient's troponin peaked at 33 with a decrease in EF from 70% to 45% with focal wall motion abnormality. Patient appears to be tolerating well at this time, but cardiology is recommending transfer to a tertiary center with CT surgery backup for intervention. No bleeding has been reported after initiation of anticoagulation, so this should be continued. Off of pressors. Okay to use low-dose beta-kesha and aspirin from my perspective 5. Possible relative adrenal insufficiency Patient was significant decompensation yesterday requiring empiric Solu- Cortef therapy. Blood pressure is much improved at this time. Will wean steroids. Other possibility could be cardiac stunning secondary to acute CT. 6. Probable COPD/malnutrition/advanced age/poor historian/GERD/recent prednisone Complicates care, management, recovery and prognosis. Patient does not appear to be in acute exacerbation of COPD at this time. Agree with PPI given reported GI bleed, but no indication for IV from my perspective. Inpatient E&M: 21031 Subs Hosp L3
[2020-05-05] MEDS: Budesonide Respules 0.5 MG/2 ML AMPUL.NEB. INHALATION ×2 (07:44→18:30)
[2020-05-05] MEDS: Ipratropium/Albuterol Sulfate 3 ML AMPUL.NEB INHALATION ×3 (07:44→18:30)
[2020-05-05 08:57] LABS: Partial Thromboplast Time 59.4 Seconds (24.1-36.2)
--- NOTE | 2020-05-05 09:26 | PN.CARD_ITS ---
Subjectve: The patient is awake and alert this morning. She denies any ongoing chest discomfort. She does have chronic shortness of breath. She does breathe with pursed lip breathing. Objective: Vital Signs Temp Pulse Resp BP Pulse Ox 98.6 F 88 16 117/54 L 98 05/05/20 06:00 05/05/20 06:00 05/05/20 06:00 05/05/20 06:00 05/05/20 06:00 Oxygen Flow Rate (L/min) 2 Oxygen Delivery Method Room Air Weight: 103 lb 13.404 oz Body Mass Index (BMI) 18.1 Intake and Output for Last 24 Hours 05/03/20 05/04/20 05/05/20 23:59 23:59 23:59 Intake Total 2470.75 / 2477.78 5183.12 / 5603.90 1567.08 / 1567.08 Output Total 575 / 575 2900 / 2925 450 / 450 Balance 1895.75 / 1902.78 2283.12 / 2678.90 1117.08 / 1117.08 General: Awake, Alert, Oriented x 3, Ill Appearing, Non-Cooperative HEENT: Atraumatic, Normocephalic, PERRL, EOMI, Sclera Non Icteric Neck: No JVD Lungs: Rhonchi, Expiratory Wheezes-Kee Cardiovascular: Regular Rhythm, Normal S1, Normal S2 Abdomen: Bowel Sounds Present, Soft Extremities: No edema Psych/Mental Status: Appropriate 05/04/20 15:10: WBC 25.1 H, RBC 3.67 L, Hgb 11.8 L, Hct 37.3, MCV 101.6 H, MCH 32.2 H, MCHC 31.6 L, Plt Count 230, MPV 9.7, Immature Gran % (Auto) 0.900, Neut % (Auto) 89.0 H, Lymph % (Auto) 4.4 L, [place] % (Auto) 4.1, Eos % (Auto) 1.4, Baso % (Auto) 0.2, Absolute Neuts (auto) 22.3 H, Nucleated RBC % 0 05/04/20 15:10: Sodium 134 L, Potassium 3.9, Chloride 107, Carbon Dioxide 20.0 L , Anion Gap 7, BUN 25 H, Creatinine 1.59 H, Est GFR (MDRD) Af Amer 41 L, Est GFR (MDRD) Non-Af 34 L, BUN/Creatinine Ratio 15.7, Glucose 99, Calcium 7.1 L, Troponin I 3.190 H* 05/04/20 15:10: Phosphorus 3.7 05/04/20 17:40: Troponin I 26.600 H* 05/04/20 19:05: APTT 34.5 05/04/20 20:30: Troponin I 33.800 H* 05/05/20 02:00: WBC 25.8 H, RBC 3.40 L, Hgb 10.8 L, Hct 34.3 L, MCV 100.9 H, MCH 31.8, MCHC 31.5 L, Plt Count 172, MPV 9.7, Immature Gran % (Auto) 1.900 H, Neut % (Auto) 96.0 H, Lymph % (Auto) 0.5 L, [place] % (Auto) 1.5, Eos % (Auto) 0.0, Baso % (Auto) 0.1, Absolute Neuts (auto) 24.8 H, Nucleated RBC % 0 05/05/20 02:00: Sodium 134 L, Potassium 4.2, Chloride 108 H, Carbon Dioxide 18.0 L, Anion Gap 8, BUN 24 H, Creatinine 1.55 H, Est GFR (MDRD) Af Amer 42 L, Est GFR (MDRD) Non-Af 35 L, BUN/Creatinine Ratio 15.5, Glucose 129 H, Calcium 7.0 L, Troponin I 17.900 H* 05/05/20 02:00: APTT 79.3 H 05/05/20 08:00: APTT 59.4 H Rhythm: Sinus rhythm EKG: Sinus rhythm; poor R wave progression; anteroseptal WV pattern of indeterminate age ECHO: Interpretation Summary The study was technically difficult. Mild segmental systolic dysfunction (see wall motion). The estimated ejection fraction is 45 %. Anterior leaflet diffuse mitral valve thickening. The mitral papillary muscle appears thickened and/or calcified. Trivial mitral valve insufficiency. Mild tricuspid valve insufficiency. Mild focal aortic valve calcification. Trivial pericardial effusion. There are no echocardiographic indications of cardiac tamponade. Right ventricular systolic pressure estimated to be 27 mmHg. Transmitral diastolic flow velocities suggest diastolic dysfunction (pseudonormal pattern). Medical Necessity - Tobacco Use Smoking Status: Former smoker Assessment/Plan 1. Acute non-ST segment elevation W[place] The patient demonstrates findings compatible with an acute non-ST segment elevation W[place]. It is unclear whether this is a type I event versus a type II event being brought out by the patient's noncardiovascular conditions. There is also concern as to whether or not the patient may have experienced and subsequently will demonstrate findings compatible with a stress-induced cardiomyopathy/Takotsubo syndrome event. At the present time she is being monitored. Her troponin I levels are decreasing. Her ECG is noted. Her transthoracic echocardiogram has been performed. She will continue medical management. This will include aspirin therapy as well as anticoagulant therapy with IV heparin. As the patient's blood pressure has improved and she is now without IV vasopressor support she will initiate medical therapy such as beta-blockers and afterload reducing agents. The patient is still considering whether or not she would want to undergo further evaluation with diagnostic cardiac catheterization. She is discussing this with her family members. 2. Cardiac dysrhythmia The patient did have cardiac dysrhythmias earlier as noted above. It is unclear whether this was related to an acute coronary syndrome event either primary or secondary versus being a primary cardiac dysrhythmia. At the moment the patient has demonstrated sinus rhythm. She will initiate medical therapy with beta-blockers. 3. Shock The patient was given diagnosis of shock with her initial H&P. This was thought secondary to her underlying gastrointestinal related issues, possible hypovolemia, and hypotension. The patient was treated with IV Levophed support. This was weaned off. She has then progressed as noted above. It is unclear at this time whether her hypotension is related to her initial concerns versus a contribution from her cardiovascular event. She is once again with mild IV vasopressor support. She will continue to be monitored with respect to her vital signs, etc., with adjustment of medicines as deemed appropriate. 4. GI bleed There is concern based upon the patient's initial presentation of hematochezia that she may have evidence of an underlying GI bleeding process. This does make it challenging to care for her acute coronary syndrome event with additional antiplatelet agents as well as anticoagulants, etc. Thus at the present time she is going to be cautiously treated with aspirin therapy and IV heparin. If she demonstrates obvious GI bleeding and decreasing hemoglobin levels then these agents will have to be discontinued and/or reversed. 5. Acute renal insufficiency The patient's creatinine level was elevated. It did demonstrate some evidence of improvement. This will have to be monitored and taken into consideration with the patient's ongoing evaluation/medical therapy and/or any other procedures that require IV contrast based upon concerns of IV contrast related nephropathy. 6. COPD The patient does have a history of significant underlying COPD. She will continue evaluation care by pulmonology. 7. Hyperlipidemia The patient will continue risk factor evaluation care as deemed appropriate. Comment: The patient's case has been discussed and reviewed with the patient as well as Dr. Marie and Dr. Boo.
--- NOTE | 2020-05-05 10:21 | PN_ITS ---
Patient Problems: Active and Suspected Problems (Last Reviewed 05/03/20 @ 18:[address] Gerry Hurtado, DO) Shock (Acute) JIM (acute kidney injury) (Acute) GI bleed (Acute) NSTEMI (non-ST elevated myocardial infarction) (Acute) Cardiac dysrhythmia (Acute) Cardiomyopathy (Acute) Subjective: Doing better overnight, her pressor supports have been discontinued and she is doing well just on oxygen. Denies any chest pain. Vitals/I&O's: Vital Signs Temp Pulse Resp BP Pulse Ox 98.5 F 97 18 134/67 H 99 05/05/20 08:00 05/05/20 09:00 05/05/20 09:00 05/05/20 09:00 05/05/20 09:00 Oxygen Flow Rate (L/min) 3 Oxygen Delivery Method Nasal Cannula Weight: 103 lb 13.404 oz Body Mass Index (BMI) 18.1 Intake and Output for Last 24 Hours 05/03/20 05/04/20 05/05/20 23:59 23:59 23:59 Intake Total 2470.75 / 2477.78 5183.12 / 5603.90 2132.08 / 2132.08 Output Total 575 / 575 2900 / 2925 450 / 450 Balance 1895.75 / 1902.78 2283.12 / 2678.90 1682.08 / 1682.08 General: Alert, Oriented x3, Cooperative, No apparent distress, cachectic HEENT: Atraumatic, PERRLA, EOMI, Normocephalic Oral: Dry Mucosa Neck: Supple, No JVD Lungs: Rhonchi and bilateral wheezes Cardiovascular: Regular rate, Regular Rhythm, Normal S1, Normal S2, No murmurs Abdomen: Soft, Non Tender, Non-Distended, No Hepato-splenomegaly Extremities: No edema, Capillary Refill Less than 3 Seconds Skin: No rashes, No breakdown Neurological: Neuro grossly intact, Sensory exam intact to light touch and pain Psych/Mental Status: Normal Affect, Appropriate Microbiology Past 72 Hours 05/04/20 04:00 Stool Enteric Bacteriology - Final 05/03/20 16:30 Urine Catheter - [facility] Urine Culture - Preliminary Culture exhibits no growth. 05/03/20 20:05 Stool C. difficile GDH Antigen & Toxins - Final 05/03/20 20:05 Stool C. difficile DNA Amplification - Final 05/03/20 20:05 Stool Stool Lactoferrin - Final Laboratory Results 05/03/20 15:20: Diff Path Review Reviewed 05/04/20 03:45: Diff Path Review Reviewed 05/04/20 15:10: WBC 25.1 H, RBC 3.67 L, Hgb 11.8 L, Hct 37.3, MCV 101.6 H, MCH 32.2 H, MCHC 31.6 L, RDW Std Deviation 50.9 H, RDW Coeff of Ashu 13.5, Plt Count 230, MPV 9.7, Immature Gran % (Auto) 0.900, Neut % (Auto) 89.0 H, Lymph % (Auto) 4.4 L, [place] % (Auto) 4.1, Eos % (Auto) 1.4, Baso % (Auto) 0.2, Absolute Neuts (auto) 22.3 H, Absolute Lymphs (auto) 1.11, Nucleated RBC % 0, Differential Comment SCANNED, Crenated Cell 1+ 05/04/20 15:10: Sodium 134 L, Potassium 3.9, Chloride 107, Carbon Dioxide 20.0 L , Anion Gap 7, BUN 25 H, Creatinine 1.59 H, Estim Creat Clear Calc 21.44, Est GFR (MDRD) Af Amer 41 L, Est GFR (MDRD) Non-Af 34 L, BUN/Creatinine Ratio 15.7, Glucose 99, Calcium 7.1 L, Troponin I 3.190 H* 05/04/20 15:10: Phosphorus 3.7 05/04/20 17:40: Troponin I 26.600 H* 05/04/20 19:05: APTT 34.5 05/04/20 20:30: Troponin I 33.800 H* 05/05/20 02:00: WBC 25.8 H, RBC 3.40 L, Hgb 10.8 L, Hct 34.3 L, MCV 100.9 H, MCH 31.8, MCHC 31.5 L, RDW Std Deviation 50.4 H, RDW Coeff of Ashu 13.6, Plt Count 172, MPV 9.7, Immature Gran % (Auto) 1.900 H, Neut % (Auto) 96.0 H, Lymph % (Auto) 0.5 L, [place] % (Auto) 1.5, Eos % (Auto) 0.0, Baso % (Auto) 0.1, Absolute Neuts (auto) 24.8 H, Absolute Lymphs (auto) 0.14 L, Nucleated RBC % 0, Differential Comment SCANNED 05/05/20 02:00: Sodium 134 L, Potassium 4.2, Chloride 108 H, Carbon Dioxide 18.0 L, Anion Gap 8, BUN 24 H, Creatinine 1.55 H, Estim Creat Clear Calc 21.99, Est GFR (MDRD) Af Amer 42 L, Est GFR (MDRD) Non-Af 35 L, BUN/Creatinine Ratio 15.5, Glucose 129 H, Calcium 7.0 L, Troponin I 17.900 H* 05/05/20 02:00: APTT 79.3 H 05/05/20 08:00: APTT 59.4 H Current Medications Acetaminophen (Tylenol) 650 mg PO Q6H PRN PRN PRN Reason: Pain Score 1-10/Temp > 100.7 F Last Admin: 05/04/20 15:27 Dose: 650 mg Documented by: Albuterol Sulfate (Ventolin Aerosols) 2.5 mg INHALATION Q2H PRN PRN PRN Reason: SOB &/OR WHEEZING Albuterol/Ipratropium (Duoneb) 3 ml INHALATION Q6HWA.RT [facility] Last Admin: 05/05/20 07:44 Dose: 3 ml Documented by: Aspirin (Ecotrin) 81 mg PO DAILY@0800 [place] Atorvastatin Calcium (Lipitor) 10 mg PO QHS [facility] Last Admin: 05/04/20 21:56 Dose: 10 mg Documented by: Budesonide (Pulmicort Aerosol) 0.5 mg INHALATION Q12H.RT [facility] Last Admin: 05/05/20 07:44 Dose: 0.5 mg Documented by: Carvedilol (Coreg) 3.125 mg PO BID [facility] Dextrose (D50w Syringe) 0 gm IV X1 PRN; Protocol PRN Reason: Hypoglycemia Gabapentin (Neurontin) 100 mg PO QHS [facility] Last Admin: 05/04/20 21:57 Dose: 100 mg Documented by: Glucagon () 1 mg IM .X1 PRN PRN Reason: Hypoglycemia Heparin Sodium (Porcine) (Heparin Na) 0 unit IV UD PRN; Protocol Hydrocortisone Sodium Succinate (Solu-Cortef) 100 mg IV Q12 [facility] Sodium Chloride () 250 mls @ 15 mls/hr IV .[id number] PRN PRN Reason: Saline Flush Last Infusion: 05/05/20 08:17 Dose: 0 mls/hr Documented by: Sodium Chloride () 250 mls @ 15 mls/hr IV .[id number] PRN PRN Reason: Additional IVPB Infusion Piperacillin Sod/Tazobactam (Sod 3.375 gm/ Sodium Chloride) 50 mls @ 12.5 mls/hr IV Q12 [facility] Last Infusion: 05/05/20 01:57 Dose: Infused Documented by: Heparin Sodium/Dextrose () 25,000 units in 250 mls @ 7 mls/hr IV .[id number] [facility]; Protocol Last Titration: 05/05/20 05:41 Dose: 700 units/hr, 7 mls/hr Documented by: Lisinopril (Zestril) 2.5 mg PO BID [facility] Ondansetron HCl (Zofran) 4 mg IV Q8H PRN PRN PRN Reason: NAUSEA/VOMITING Pantoprazole Sodium (Protonix) 40 mg PO DAILY [facility] Last Admin: 05/04/20 10:14 Dose: 40 mg Documented by: Sodium Chloride () 10 - 40 ml IV UD PRN PRN Reason: SALINE FLUSH Last Admin: 05/04/20 20:26 Dose: 20 ml Documented by: Trazodone HCl (Desyrel) 50 mg PO QHS [facility] Last Admin: 05/04/20 21:57 Dose: 50 mg Documented by: Vancomycin HCl () 125 mg PO Q6 [facility] Last Admin: 05/05/20 05:37 Dose: 125 mg Documented by: STROKE Vital Signs/Narrative: Vital Signs Temp Pulse Resp BP Pulse Ox 05/05/20 09:00 97 18 134/67 H 99 05/05/20 08:00 98.5 F 112 H 23 H 130/98 H 91 05/05/20 07:44 88 18 96 05/05/20 07:00 69 18 109/49 L 93 Medical Necessity - Tobacco Use Smoking Status: Former smoker Assessment/Plan All Active Problems (Last Reviewed 05/03/20 @ 18:[address] Gerry Hurtado, DO) Hypoxia (Acute) Shock (Acute) JIM (acute kidney injury) (Acute) GI bleed (Acute) NSTEMI (non-ST elevated myocardial infarction) (Acute) Cardiac dysrhythmia (Acute) Cardiomyopathy (Acute) Guaiac positive stools (Acute) Acute diarrhea (Acute) 1. Septic versus hypovolemic shock secondary to C. difficile diarrhea/JIM -Off pressors -She was resuscitated with 30 cc/kg of IV fluids in the ER plus maintained on 150 cc/h of normal saline, the fluids are discontinued given her lung sounds and the fact that she is 6 L positive -Continue with Solu-Cortef -Continue with p.o. vancomycin, the C. difficile test came back positive for DNA and antigen but negative for toxin, continue with Zosyn as well -COVID testing is negative -She did have a slight increase in her leukocytosis 37,000, will continue to monitor -And on admission was 2.44 down to 1.55 today. We will continue to monitor -Continue to hold her nephrotoxic drugs 2. Non-STEMI -She had an [employer] yesterday for significant tachycardia up into the 190s. It appears that she had periods of V. tach and possible multifocal atrial tachycardia she was initially given a 6 mg dose of adenosine followed by 12 mg dose of adenosine, this slowed down her rate enough that she was able to come out of it on her own and once her heart rate reached down to her baseline she stopped having chest pain. Troponin came back initially at 3 and peaked at 33. This morning is down to 17. Cardiology was consulted and she was started on a heparin drip as well as started on aspirin. She is deciding whether or not she wants to have further cardiac work-up at a tertiary care center as she is too high risk for this facility. As her heart rate normalized, her blood pressures also dropped and she needed to be started back on her Levophed and then also had to have vasopressin added. As of this morning her blood pressures are stable and she is off both pressors. 3. History of a GI bleed/GERD -Hemoglobin is stable at 10.8 today, likely hemodilution secondary to the amount of fluid that she is received, she is about 6 L positive -Continue with her PPI 4. COPD -Currently not in exacerbation -Continue with her home inhalers 5. HTN/HLD -She is currently on blood pressure support with pressors which is improving with IV fluids and treatment of her C. difficile -Continue to hold her lisinopril -Continue with her Lipitor DVT: SCDs Inpatient E&M: 49082 Subs Hosp L2
[2020-05-05] MEDS: Pantoprazole Sodium 40 MG Tablet PO (11:14)
[2020-05-05] MEDS: Aspirin E.C. 81 MG Tablet PO (11:14)
[2020-05-05] MEDS: Lisinopril 2.5 MG Tablet PO ×2 (11:14→22:17)
[2020-05-05] MEDS: Carvedilol 3.125 MG TABLET PO ×2 (11:14→22:17)
[2020-05-05 20:13] LABS: Partial Thromboplast Time 69.9 Seconds (24.1-36.2)
[2020-05-05] MEDS: Atorvastatin Calcium 10 MG Tablet PO (22:17)
[2020-05-05] MEDS: 0.9% Saline Lock 10 ML Syringe IV (22:17)
[2020-05-05] MEDS: traZODone 50 MG Tablet PO (22:17)
[2020-05-05] MEDS: Gabapentin 100 MG Capsule PO (22:17)
[2020-05-06] VITALS (16 sets, daily range): BP systolic 106–137; BP diastolic 56–80; PULSE 63–83; RESP 17–22; TEMP 37.1–37.2; O2SAT 90–100
[2020-05-06 05:04] LABS: Partial Thromboplast Time 50.3 Seconds (24.1-36.2)
[2020-05-06 05:36] LABS: Absolute Lymphocyte Count 0.18 X10^3/uL (0.83-4.51); Absolute Neutrophil Count 17.6 X10^3/uL (2.0-7.7); Basophil# 0.02 X10^3/uL; Basophil% 0.1 % (0-1); Hematocrit 32.3 % (37-47); Hemoglobin 10.3 g/dL (12.0-15.0); Lymphocyte # 0.18 X10^3/ul (4.0); Mean Corp Hgb Conc 31.9 g/dL (32-36); Mean Corpuscular Hgb 31.8 pg (27.0-32.0); Mean Corpuscular Volume 99.7 fL (81-99); Monocyte# 0.45 X10^3/uL; Monocyte% 2.5 % (0-10); NRBC Flagged by Analyzer 0 % (0-5); Neutrophil # 17.55 X10^3/uL (2.7-7.7); POSITIVE DIFFERENTIAL YES; POSITIVE MORPHOLOGY YES; Platelet Count 158 K/mm3 (150-450); RBC Distribution Width CV 13.8 % (11.6-14.6); RBC Distribution Width SD 50.4 fl (35.1-43.9); Red Blood Count 3.24 M/mm3 (4.2-5.4); White Blood Count 18.3 K/mm3 (4.4-11.0)
[2020-05-06] MEDS: HEPARIN/D5w 25,000 UNITS 25,000 UNITS/250 ML IV.SOLN. 8 UNITS IV (05:36)
[2020-05-06] MEDS: 0.9% Saline Lock 10 ML Syringe IV (05:37)
[2020-05-06 05:48] LABS: Anion Gap 8 (5-15); BUN 22 mg/dL (7-18); BUN/Creat Ratio 16.4 RATIO (10-20); Calcium,Total 7.7 mg/dL (8.5-10.1); Chloride 106 mmol/L (98-107); Creatinine, Serum 1.34 mg/dL (0.55-1.02); EST Glomerular Filtration Rate 41 mL/min (>60); Est Glom Filt Rate - Afr Amer 50 mL/min (>60); Estimated Creatinine Clearance 26.86 ml/min; Glucose 110 mg/dL (74-106); Magnesium 1.6 mg/dL (1.6-2.6); Phosphorus 3.9 mg/dL (2.5-4.9); Potassium 3.9 mmol/L (3.5-5.1); Sodium Level 135 mmol/L (136-145)
[2020-05-06 06:12] LABS: Differential Indicated SCAN CRITERIA MET
[2020-05-06 06:45] LABS: Differential Comment SCANNED; Reactive Lymphocyte RARE
[2020-05-06] MEDS: Budesonide Respules 0.5 MG/2 ML AMPUL.NEB. INHALATION (06:55)
[2020-05-06] MEDS: Ipratropium/Albuterol Sulfate 3 ML AMPUL.NEB INHALATION (06:55)
--- NOTE | 2020-05-06 07:20 | PCM.PN.INT ---
Subjective: Patient did well overnight. No recurrence of ventricular arrhythmia noted in the last 24 hours. Patient has been weaned to 2 to 3 L/min nasal cannula oxygen to maintain saturations. Patient is only had 1 mucoid bowel movement overnight. Patient feels subjectively improved. Patient states she has talked with 2 of her 5 sons, but has not made a decision as to pursue cardiac intervention or not. General: Alert, Oriented x3, Cooperative, No apparent distress, - - No conversational dyspnea. Cachectic. HEENT: Atraumatic, PERRLA, EOMI, Normocephalic, - - No scleral icterus or injection noted Oral: Moist Mucosa, No Gingival or Mucosal Lesions/ Ulcerations Neck: Supple, No JVD, No Nodes, Trachea Midline Lungs: No rhonchi, No wheeze, Diminished, Rales - Bilateral bases posteriorly Cardiovascular: Regular rate, Regular Rhythm, Normal S1, Normal S2, No murmurs, No rub noted, No Gallop Abdomen: Bowel Sounds Present, Soft, Non Tender, Non-Distended Extremities: No clubbing, No cyanosis, No edema, Capillary Refill Less than 3 Seconds, - - Right femoral central line is clean, dry and intact Skin: - - No changes compared to previous Musculoskeletal: No Tenderness to Palpation of Joints or Extremities Lymphatic: No Cervical, Supraclavicular, or Inguinal Adenopathy Neurological: Cranial nerves II-XII grossly intact, Neuro grossly intact, Motor Exam 5/5 strength throughout Psych/Mental Status: Alert and oriented to time, place, person, mood and affect Vital Signs Temp Pulse Resp BP Pulse Ox 37.1 C 68 18 137/66 H 100 05/06/20 07:00 05/06/20 07:00 05/06/20 07:00 05/06/20 07:00 05/06/20 07:00 Oxygen Flow Rate (L/min) 3 Oxygen Delivery Method Nasal Cannula Weight: 47.4 kg Body Mass Index (BMI) 18.1 Intake and Output for Last 24 Hours 05/04/20 05/05/20 05/06/20 23:59 23:59 23:59 Intake Total 5183.12 / 5603.90 2536.91 / 2536.91 355.43 / 355.43 Output Total 2900 / 2925 1425 / 1475 575 / 575 Balance 2283.12 / 2678.90 1111.91 / 1061.91 -219.57 / -219.57 Labs (Last 48 Hours) 05/03/20 05/04/20 05/04/20 15:20 03:45 15:10 WBC 25.1 H RBC 3.67 L Hgb 11.8 L Hct 37.3 MCV 101.6 H MCH 32.2 H MCHC 31.6 L RDW Std Deviation 50.9 H RDW Coeff of Ashu 13.5 Plt Count 230 MPV 9.7 Immature Gran % (Auto) 0.900 Neut % (Auto) 89.0 H Lymph % (Auto) 4.4 L [place] % (Auto) 4.1 Eos % (Auto) 1.4 Baso % (Auto) 0.2 Absolute Neuts (auto) 22.3 H Absolute Lymphs (auto) 1.11 Nucleated RBC % 0 Differential Comment SCANNED Diff Path Review Reviewed Reviewed Reactive Lymphocytes Crenated Cell 1+ APTT Sodium Potassium Chloride Carbon Dioxide Anion Gap BUN Creatinine Estim Creat Clear Calc Est GFR (MDRD) Af Amer Est GFR (MDRD) Non-Af BUN/Creatinine Ratio Glucose Calcium Phosphorus Magnesium Troponin I 05/04/20 05/04/20 05/04/20 15:10 15:10 17:40 WBC RBC Hgb Hct MCV MCH MCHC RDW Std Deviation RDW Coeff of Ashu Plt Count MPV Immature Gran % (Auto) Neut % (Auto) Lymph % (Auto) [place] % (Auto) Eos % (Auto) Baso % (Auto) Absolute Neuts (auto) Absolute Lymphs (auto) Nucleated RBC % Differential Comment Diff Path Review Reactive Lymphocytes Crenated Cell APTT Sodium 134 L Potassium 3.9 Chloride 107 Carbon Dioxide 20.0 L Anion Gap 7 BUN 25 H Creatinine 1.59 H Estim Creat Clear Calc 21.44 Est GFR (MDRD) Af Amer 41 L Est GFR (MDRD) Non-Af 34 L BUN/Creatinine Ratio 15.7 Glucose 99 Calcium 7.1 L Phosphorus 3.7 Magnesium Troponin I 3.190 H* 26.600 H* 05/04/20 05/04/20 05/05/20 19:05 20:30 02:00 WBC 25.8 H RBC 3.40 L Hgb 10.8 L Hct 34.3 L MCV 100.9 H MCH 31.8 MCHC 31.5 L RDW Std Deviation 50.4 H RDW Coeff of Ashu 13.6 Plt Count 172 MPV 9.7 Immature Gran % (Auto) 1.900 H Neut % (Auto) 96.0 H Lymph % (Auto) 0.5 L [place] % (Auto) 1.5 Eos % (Auto) 0.0 Baso % (Auto) 0.1 Absolute Neuts (auto) 24.8 H Absolute Lymphs (auto) 0.14 L Nucleated RBC % 0 Differential Comment SCANNED Diff Path Review Reactive Lymphocytes Crenated Cell APTT 34.5 Sodium Potassium Chloride Carbon Dioxide Anion Gap BUN Creatinine Estim Creat Clear Calc Est GFR (MDRD) Af Amer Est GFR (MDRD) Non-Af BUN/Creatinine Ratio Glucose Calcium Phosphorus Magnesium Troponin I 33.800 H* 05/05/20 05/05/20 05/05/20 02:00 02:00 08:00 WBC RBC Hgb Hct MCV MCH MCHC RDW Std Deviation RDW Coeff of Ashu Plt Count MPV Immature Gran % (Auto) Neut % (Auto) Lymph % (Auto) [place] % (Auto) Eos % (Auto) Baso % (Auto) Absolute Neuts (auto) Absolute Lymphs (auto) Nucleated RBC % Differential Comment Diff Path Review Reactive Lymphocytes Crenated Cell APTT 79.3 H 59.4 H Sodium 134 L Potassium 4.2 Chloride 108 H Carbon Dioxide 18.0 L Anion Gap 8 BUN 24 H Creatinine 1.55 H Estim Creat Clear Calc 21.99 Est GFR (MDRD) Af Amer 42 L Est GFR (MDRD) Non-Af 35 L BUN/Creatinine Ratio 15.5 Glucose 129 H Calcium 7.0 L Phosphorus Magnesium Troponin I 17.900 H* 05/05/20 05/06/20 05/06/20 19:45 04:40 04:40 WBC 18.3 H RBC 3.24 L Hgb 10.3 L Hct 32.3 L MCV 99.7 H MCH 31.8 MCHC 31.9 L RDW Std Deviation 50.4 H RDW Coeff of Ashu 13.8 Plt Count 158 MPV 10.0 Immature Gran % (Auto) 0.400 Neut % (Auto) 96.0 H Lymph % (Auto) 1.0 L [place] % (Auto) 2.5 Eos % (Auto) 0.0 Baso % (Auto) 0.1 Absolute Neuts (auto) 17.6 H Absolute Lymphs (auto) 0.18 L Nucleated RBC % 0 Differential Comment SCANNED Diff Path Review Reactive Lymphocytes RARE Crenated Cell APTT 69.9 H 50.3 H Sodium Potassium Chloride Carbon Dioxide Anion Gap BUN Creatinine Estim Creat Clear Calc Est GFR (MDRD) Af Amer Est GFR (MDRD) Non-Af BUN/Creatinine Ratio Glucose Calcium Phosphorus Magnesium Troponin I 05/06/20 04:40 WBC RBC Hgb Hct MCV MCH MCHC RDW Std Deviation RDW Coeff of Ashu Plt Count MPV Immature Gran % (Auto) Neut % (Auto) Lymph % (Auto) [place] % (Auto) Eos % (Auto) Baso % (Auto) Absolute Neuts (auto) Absolute Lymphs (auto) Nucleated RBC % Differential Comment Diff Path Review Reactive Lymphocytes Crenated Cell APTT Sodium 135 L Potassium 3.9 Chloride 106 Carbon Dioxide 21.0 Anion Gap 8 BUN 22 H Creatinine 1.34 H Estim Creat Clear Calc 26.86 Est GFR (MDRD) Af Amer 50 L Est GFR (MDRD) Non-Af 41 L BUN/Creatinine Ratio 16.4 Glucose 110 H Calcium 7.7 L Phosphorus 3.9 Magnesium 1.6 Troponin I Microbiology 05/04/20 04:00 Stool Enteric Bacteriology - Final 05/03/20 16:30 Urine Catheter - [facility] Urine Culture - Preliminary Culture exhibits no growth. Medical Necessity - Tobacco Use Smoking Status: Former smoker Assessment/Plan All Active Problems (Last Reviewed 05/03/20 @ 18:[address] Gerry Hurtado, DO) Hypoxia (Acute) Shock (Acute) JIM (acute kidney injury) (Acute) GI bleed (Acute) NSTEMI (non-ST elevated myocardial infarction) (Acute) Cardiac dysrhythmia (Acute) Cardiomyopathy (Acute) Guaiac positive stools (Acute) Acute diarrhea (Acute) RECOMMENDATIONS: 1. Continue p.o. vancomycin. Discontinue Zosyn and Solu-Cortef 2. Continue systemic anticoagulation pending patient decision 3. Wean oxygen as tolerated 4. Okay to use low-dose beta-kesha and aspirin from a critical care perspective 5. Agree with p.o. PPI 6. Continue bronchodilators, no indication for systemic steroids IMPRESSIONS: 1. Septic shock secondary to C. difficile Patient is a poor historian, but does report recent azithromycin therapy for respiratory compromise. Patient is in contact precautions. Will continue empiric p.o. vancomycin. Patient continues to have a femoral central line. This can be continued if patient is to be transferred to allow for ACLS if necessary for venous access. However, if patient is choosing to be conservative, central line should be removed today to avoid infectious complications. Leukocytosis is responding well to p.o. vancomycin, along with bowel movements. 2. Acute kidney injury Likely multifactorial prerenal etiology. Lisinopril and diclofenac will be held. Patient will receive aggressive fluid resuscitation. Continue to monitor renal function and replace electrolytes as necessary. No indication for renal replacement therapy. Some improvement in creatinine. Holding off on diuretic therapy as patient may require heart catheterization and this will increase risk of contrast-induced nephropathy. If patient decides against cardiac intervention, low-dose diuretic could be attempted to help with respiratory status. We will continue to monitor 3. Reported GI bleed Unclear etiology. Patient reportedly did have some bright red blood per rectum, but this has resolved. Unclear if this represents a diverticular bleed versus hemorrhoidal bleed. This has resolved, so we will continue to monitor clinically. No indication for every 6 hemoglobins. Clinical suspicion for an element of hemoconcentration on presentation. No bleeding has been noted since admission to the hospital 4. Non-ST elevation VT Patient with V. tach and apparent non-ST elevation VT Sunday. Patient's troponin peaked at 33 with a decrease in EF from 70% to 45% with focal wall motion abnormality. Patient appears to be tolerating well at this time, but cardiology is recommending transfer to a tertiary center with CT surgery backup for intervention. No bleeding has been reported after initiation of anticoagulation, so this should be continued. Off of pressors. Okay to use low-dose beta-kesha and aspirin from my perspective 5. Possible relative adrenal insufficiency Patient was significant decompensation yesterday requiring empiric Solu-Cortef therapy. Blood pressure is much improved at this time. Patient tolerated decrease in dose well. Will discontinue Solu-Cortef today. Other possibility could be cardiac stunning secondary to acute VT. 6. Probable COPD/malnutrition/advanced age/poor historian/GERD/recent prednisone Complicates care, management, recovery and prognosis. Patient does not appear to be in acute exacerbation of COPD at this time. Agree with PPI given reported GI bleed, but no indication for IV from my perspective. Inpatient E&M: 97133 Subs Hosp L3
[2020-05-06] MEDS: Aspirin E.C. 81 MG Tablet PO (07:52)
[2020-05-06] MEDS: Lisinopril 2.5 MG Tablet PO (09:49)
[2020-05-06] MEDS: Pantoprazole Sodium 40 MG Tablet PO (09:49)
[2020-05-06] MEDS: Carvedilol 3.125 MG TABLET PO (09:49)
[2020-05-06] MEDS: Menthol/Lanolin/Calamine/Znox 113 GM Tube 1 APPLIC TOPICAL (09:50)
--- NOTE | 2020-05-06 10:44 | PN.CARD_ITS ---
Subjectve: This is a 74-year-old white female who states she still feels somewhat short of breath and dyspneic is not complaining of ongoing chest discomfort or palpitations at this time. Objective: Vital Signs Temp Pulse Resp BP Pulse Ox 98.9 F 81 18 112/77 94 05/06/20 08:00 05/06/20 10:00 05/06/20 10:00 05/06/20 10:00 05/06/20 10:00 Oxygen Flow Rate (L/min) 2 Oxygen Delivery Method Nasal Cannula Weight: 104 lb 7.986 oz Body Mass Index (BMI) 18.1 Intake and Output for Last 24 Hours 05/04/20 05/05/20 05/06/20 23:59 23:59 23:59 Intake Total 5183.12 / 5603.90 2536.91 / 2536.91 374.63 / 374.63 Output Total 2900 / 2925 1425 / 1475 755 / 755 Balance 2283.12 / 2678.90 1111.91 / 1061.91 -380.37 / -380.37 General: Awake, Alert, Oriented x 3, Cooperative HEENT: Atraumatic, Normocephalic, PERRL, EOMI, Sclera Non Icteric Neck: Supple, Good ROM, No JVD Lungs: Expiratory Wheezes-Kee Cardiovascular: Regular Rhythm, Normal S1, Normal S2 Abdomen: Bowel Sounds Present, Soft Psych/Mental Status: Appropriate 05/05/20 19:45: APTT 69.9 H 05/06/20 04:40: APTT 50.3 H 05/06/20 04:40: WBC 18.3 H, RBC 3.24 L, Hgb 10.3 L, Hct 32.3 L, MCV 99.7 H, MCH 31.8, MCHC 31.9 L, Plt Count 158, MPV 10.0, Immature Gran % (Auto) 0.400, Neut % (Auto) 96.0 H, Lymph % (Auto) 1.0 L, [place] % (Auto) 2.5, Eos % (Auto) 0.0, Baso % (Auto) 0.1, Absolute Neuts (auto) 17.6 H, Nucleated RBC % 0 05/06/20 04:40: Sodium 135 L, Potassium 3.9, Chloride 106, Carbon Dioxide 21.0, Anion Gap 8, BUN 22 H, Creatinine 1.34 H, Est GFR (MDRD) Af Amer 50 L, Est GFR (MDRD) Non-Af 41 L, BUN/Creatinine Ratio 16.4, Glucose 110 H, Calcium 7.7 L, Phosphorus 3.9, Magnesium 1.6 Rhythm: Sinus rhythm; ventricular triplet Medical Necessity - Tobacco Use Smoking Status: Former smoker Assessment/Plan 1. Acute non-ST segment elevation NJ The patient demonstrates findings compatible with an acute non-ST segment elevation NJ. It is unclear whether this is a type I event versus a type II event being brought out by the patient's noncardiovascular conditions. There is also concern as to whether or not the patient may have experienced and subsequently will demonstrate findings compatible with a stress-induced cardiomyopathy/Takotsubo syndrome event. At the present time she is being monitored. She will continue medical management. This will include aspirin therapy as well as anticoagulant therapy with IV heparin. Initiated medical management with beta-blockers and ALFONZO inhibitors. Patient states she has now discussed her case with her family. She is in agreement for evaluation with cardiac catheterization at a tertiary care center. She does state that she has a niece that works at [employer] and 3 sisters that live in [place]. However she does not want to be that far from home. Thus she has stated she would be willing to be transferred to a hospital in [place], [place] for further evaluation and care. 2. Cardiac dysrhythmia The patient did have cardiac dysrhythmias earlier as noted above. It is unclear whether this was related to an acute coronary syndrome event either primary or secondary versus being a primary cardiac dysrhythmia. At the moment the patient has demonstrated sinus rhythm. She has initiated beta-kesha therapy which can be adjusted as needed. 3. Shock The patient was given diagnosis of shock with her initial H&P. This was thought secondary to her underlying gastrointestinal related issues, possible hypovolemia, and hypotension. The patient was treated with IV Levophed support. This was weaned off. She has then progressed as noted above. It is unclear at this time whether her hypotension is related to her initial concerns versus a contribution from her cardiovascular event. She is without IV vasopressor support at this time. She has initiated medical management and peers to be tolerating it well thus far. She will continue to be monitored with respect to her vital signs, etc., with adjustment of medicines as deemed appropriate. 4. GI bleed There is concern based upon the patient's initial presentation of hematochezia that she may have evidence of an underlying GI bleeding process. This does make it challenging to care for her acute coronary syndrome event with additional antiplatelet agents as well as anticoagulants, etc. she has continued her anticoagulant therapy with no obvious hemorrhagic issues thus far. 5. Acute renal insufficiency The patient's creatinine level was elevated. It appears to have decreased. She will continue to be followed. 6. COPD The patient does have a history of significant underlying COPD. She will beth nue evaluation care by pulmonology. 7. Hyperlipidemia The patient will continue risk factor evaluation care as deemed appropriate. Overall, at the present time, the tentative plan is for continued medical management and transfer to a tertiary care center for further evaluation with diagnostic cardiac catheterization. Comment: The patient's case has been discussed and reviewed with the patient as well as Dr. Marie.
--- NOTE | 2020-05-06 11:10 | DCINST_ITS ---
- Discharge Diagnoses Current Active Problems: Current Active and Chronic Problems (Last Reviewed 05/03/20 @ 18:[address] Gerry Hurtado, DO) Shock (Acute) JIM (acute kidney injury) (Acute) GI bleed (Acute) COPD (chronic obstructive pulmonary disease) (Chronic) Protein calorie malnutrition (Chronic) NSTEMI (non-ST elevated myocardial infarction) (Acute) Cardiac dysrhythmia (Acute) Cardiomyopathy (Acute) You will use the following diet at home:: Cardiac Your food should be the consistency of: Regular Your liquids should be the consistency of: Regular/Thin Discharge Activity: Return to Normal Activity Call your doctor if you observe: Fever of 101 or Higher, Shortness of breath, Dizziness, Fainting spells, Swelling in the ankles, Chest pain, Increased palpitations (irregular heartbeat) Additional Instructions: DNRCC-A Allergies/Adverse Reactions: Allergies Sulfa (Sulfonamide Antibiotics) Allergy (Verified 05/03/20 15:21) FACE GETS RED AND ITCHY codeine Adverse Reaction (Verified 05/03/20 15:21) Nausea Medications to take at Discharge Albuterol Sulfate [Ventolin Hfa] 1 - 2 puff INHALATION Q4H PRN 11/26/17 Atorvastatin Calcium [Lipitor] 10 mg PO QHS 11/26/17 Diclofenac [Voltaren] 75 mg PO BIDCM 11/26/17 Gabapentin [Neurontin] 600 mg PO QHS 11/26/17 Albuterol Aerosols [Ventolin Aerosols] 2.5 mg INHALATION Q2H PRN PRN #1 box 11/28/17 Fluticasone/Umeclidin/Vilanter [Trelegy Ellipta 100-62.5-25] 1 puff IH DAILY 10/16/18 Famotidine [Pepcid] 20 mg PO QHS 10/30/19 Trazodone HCl 50 mg PO QHS 10/30/19 Lisinopril 5 mg PO QHS 11/05/19 Prednisone See Taper PO UD 11/05/19 Azithromycin 250 mg PO DAILY 05/03/20 Primary Care Physician: Matt Peace MD [Primary Care Provider] - Test Results: Test results from this visit will be discussed in further detail at your follow- up appointment, if applicable.
[2020-05-06 11:45] LABS: Partial Thromboplast Time 54.9 Seconds (24.1-36.2)
--- NOTE | 2020-05-06 12:34 | PCM.DC.SUM ---
Discharge Date and Diagnosis - Problem List Patient Problems: Active and Suspected Problems (Last Reviewed 05/03/20 @ 18:[address] Gerry Hurtado DO) Shock (Acute) JIM (acute kidney injury) (Acute) GI bleed (Acute) NSTEMI (non-ST elevated myocardial infarction) (Acute) Cardiac dysrhythmia (Acute) Cardiomyopathy (Acute) Date of Admission: 05/03/20 Date of Discharge: 05/06/20 - Primary Discharge Diagnosis Acute Problems: Active Problems (Last Reviewed 05/03/20 @ 18:[address] Gerry Hurtado DO) Shock (Acute) JIM (acute kidney injury) (Acute) GI bleed (Acute) NSTEMI (non-ST elevated myocardial infarction) (Acute) Cardiac dysrhythmia (Acute) Cardiomyopathy (Acute) - Secondary Discharge Diagnosis Chronic Problems: Chronic Problems (Last Reviewed 05/03/20 @ 18:[address] Gerry Hurtado DO) COPD (chronic obstructive pulmonary disease) (Chronic) Protein calorie malnutrition (Chronic) Neurogenic bowel (Chronic) Neurogenic bladder (Chronic) HLD (hyperlipidemia) (Chronic) Hospital Course and Treatment Imaging Results: CXR: IMPRESSION: Stable emphysema. No acute thoracic pathology. CT Brain: IMPRESSION: No acute intracranial abnormality. Mild chronic ischemic change. Echo: Interpretation Summary The study was technically difficult. Mild segmental systolic dysfunction (see wall motion). The estimated ejection fraction is 45 %. Anterior leaflet diffuse mitral valve thickening. The mitral papillary muscle appears thickened and/or calcified. Trivial mitral valve insufficiency. Mild tricuspid valve insufficiency. Mild focal aortic valve calcification. Trivial pericardial effusion. There are no echocardiographic indications of cardiac tamponade. Right ventricular systolic pressure estimated to be 27 mmHg. Transmitral diastolic flow velocities suggest diastolic dysfunction (pseudonormal pattern). Consults: Cardiology ICU Operations: None Procedures: 2-D Echocardiogram, Central line placement Summary of Care Provided: Per HPI: The patient is a 74 year old F presents with diarrhea and hematochezia. Symptoms began last night but were just much more intense today. Patient is never had any issues with this before. Patient presented to the emergency room and her blood pressure was 52/37. Patient received 30 cc per kilogram of IV fluids and her blood pressure has improved to 91/39. Patient states that her blood pressure normally runs low from 70s to 80s systolic. Patient states short of breath but that is not new. Denies any exposure to anyone with COVID-19, stating that she is only been out once in the past 2 months. Additionally in the emergency room, patient's creatinine was noted to be elevated at 2.44, lactic acid was 3.8. Infectious work-up was unremarkable otherwise. Hospital Course: 1. Septic versus hypovolemic shock secondary to C. difficile diarrhea/STR-74-xkew-old female presenting to the hospital with diarrhea and hematochezia. She was found to have C. difficile as well as significant hypotension and was transferred to the ICU for IV fluids as well as pressor support. She initially did pretty well and was also started on hydrocortisone to support her blood pressure and was started on vancomycin for her C. difficile, initial leukocytosis peaked at 37.2, and on the day of discharge she is down to 18.3. Her other culture data came back negative therefore her Zosyn can be discontinued. She ultimately had to be restarted on her Levophed after she had an FLIGHT NURSE called, and also had to have vasopressin added. She did ultimately respond to all treatments and has been off of pressor support for over 24 hours now. Her blood pressure is stable and she is no longer on any steroids. Her kidney function is also improving back to her baseline of about 1. On admission she was 2.44 and now she is 1.34. 2. [id number] 05/04/2020 she had an FLIGHT NURSE called for initially what was thought to be V. tach with possible A. fib with aberrancy, her heart rate was in the 190s to 200s and she was given initially 6 mg dose of adenosine followed by 12 mg dose of adenosine. Her rate was able to slow down enough that she was able to come out of it. And it looks like she may have been a multifocal atrial tachycardia secondary to her COPD, hypoxia. She had a troponin checked after the event and it was 3.9 and a series demonstrated a peak of 33.8 and her troponin. It did ultimately decline on the next day to 17.8. She did delay in deciding whether or not she want to be transferred for heart cath as she was too high risk to be done at this facility. However on the day of discharge she decided that she would be okay with being transferred. The case was discussed with cardiology at [facility] and they accept patient in transfer. She was started on a heparin drip as well as started on aspirin when her troponin came back elevated. And she has been maintained on a heparin drip with aspirin since that time. Of note she did present with hematochezia however her hemoglobin with the heparin drip has remained stable at around 10.3. 3. Her diagnosis of GERD, COPD, hypertension, and hyperlipidemia were all evaluated and her home medications were continued where appropriate Patient Problems: Active and Suspected Problems (Last Reviewed 05/03/20 @ 18:[address] Gerry Hurtado, DO) Shock (Acute) JIM (acute kidney injury) (Acute) GI bleed (Acute) NSTEMI (non-ST elevated myocardial infarction) (Acute) Cardiac dysrhythmia (Acute) Cardiomyopathy (Acute) - Physical Exam Vitals/I&O's: Vital Signs Temp Pulse Resp BP Pulse Ox 98.9 F 81 18 112/77 94 05/06/20 08:00 05/06/20 10:00 05/06/20 10:00 05/06/20 10:00 05/06/20 10:00 Oxygen Flow Rate (L/min) 2 Oxygen Delivery Method Nasal Cannula Weight: 104 lb 7.986 oz Body Mass Index (BMI) 18.1 Intake and Output for Last 24 Hours 05/04/20 05/05/20 05/06/20 23:59 23:59 23:59 Intake Total 5183.12 / 5603.90 2536.91 / 2536.91 401.96 / 401.96 Output Total 2900 / 2925 1425 / 1475 905 / 905 Balance 2283.12 / 2678.90 1111.91 / 1061.91 -503.04 / -503.04 General: Alert, Oriented x3, Cooperative, No apparent distress, cachectic HEENT: Atraumatic, PERRLA, EOMI, Normocephalic Oral: Dry Mucosa Neck: Supple, No JVD Lungs: Rhonchi and bilateral wheezes Cardiovascular: Regular rate, Regular Rhythm, Normal S1, Normal S2, No murmurs Abdomen: Soft, Non Tender, Non-Distended, No Hepato-splenomegaly Extremities: No edema, Capillary Refill Less than 3 Seconds Skin: No rashes, No breakdown Neurological: Neuro grossly intact, Sensory exam intact to light touch and pain Psych/Mental Status: Normal Affect, Appropriate Microbiology Past 72 Hours 05/03/20 16:30 Urine Catheter - Cullen Urine Culture - Final Culture exhibits no growth. 05/03/20 16:50 Blood Culture (Wb) - Anticubital Right Blood Culture - Preliminary No growth in 48 hours. 05/03/20 16:40 Blood Culture (Wb) - Right Forearm Blood Culture - Preliminary No growth in 48 hours. 05/04/20 04:00 Stool Enteric Bacteriology - Final 05/03/20 20:05 Stool C. difficile GDH Antigen & Toxins - Final 05/03/20 20:05 Stool C. difficile DNA Amplification - Final 05/03/20 20:05 Stool Stool Lactoferrin - Final Laboratory Results 05/05/20 19:45: APTT 69.9 H 05/06/20 04:40: APTT 50.3 H 05/06/20 04:40: WBC 18.3 H, RBC 3.24 L, Hgb 10.3 L, Hct 32.3 L, MCV 99.7 H, MCH 31.8, MCHC 31.9 L, RDW Std Deviation 50.4 H, RDW Coeff of Ashu 13.8, Plt Count 158, MPV 10.0, Immature Gran % (Auto) 0.400, Neut % (Auto) 96.0 H, Lymph % (Auto) 1.0 L, [place] % (Auto) 2.5, Eos % (Auto) 0.0, Baso % (Auto) 0.1, Absolute Neuts (auto) 17.6 H, Absolute Lymphs (auto) 0.18 L, Nucleated RBC % 0, Differential Comment SCANNED, Reactive Lymphocytes RARE 05/06/20 04:40: Sodium 135 L, Potassium 3.9, Chloride 106, Carbon Dioxide 21.0, Anion Gap 8, BUN 22 H, Creatinine 1.34 H, Estim Creat Clear Calc 26.86, Est GFR (MDRD) Af Amer 50 L, Est GFR (MDRD) Non-Af 41 L, BUN/Creatinine Ratio 16.4, Glucose 110 H, Calcium 7.7 L, Phosphorus 3.9, Magnesium 1.6 05/06/20 11:25: APTT 54.9 H Current Medications Acetaminophen (Tylenol) 650 mg PO Q6H PRN PRN PRN Reason: Pain Score 1-10/Temp > 100.7 F Last Admin: 05/04/20 15:27 Dose: 650 mg Documented by: Albuterol Sulfate (Ventolin Aerosols) 2.5 mg INHALATION Q2H PRN PRN PRN Reason: SOB &/OR WHEEZING Albuterol/Ipratropium (Duoneb) 3 ml INHALATION Q6HWA.RT [facility] Last Admin: 05/06/20 06:55 Dose: 3 ml Documented by: Aspirin (Ecotrin) 81 mg PO DAILY@0800 [facility] Last Admin: 05/06/20 07:52 Dose: 81 mg Documented by: Atorvastatin Calcium (Lipitor) 10 mg PO QHS [facility] Last Admin: 05/05/20 22:17 Dose: 10 mg Documented by: Budesonide (Pulmicort Aerosol) 0.5 mg INHALATION Q12H.RT [facility] Last Admin: 05/06/20 06:55 Dose: 0.5 mg Documented by: Calamine/Phenol (Calmoseptine Ointment) 1 applic TOPICAL BID [facility]; Protocol Last Admin: 05/06/20 09:50 Dose: 1 applicatio Documented by: Carvedilol (Coreg) 3.125 mg PO BID [facility] Last Admin: 05/06/20 09:49 Dose: 3.125 mg Documented by: Dextrose (D50w Syringe) 0 gm IV X1 PRN; Protocol PRN Reason: Hypoglycemia Gabapentin (Neurontin) 100 mg PO QHS [facility] Last Admin: 05/05/20 22:17 Dose: 100 mg Documented by: Glucagon () 1 mg IM .X1 PRN PRN Reason: Hypoglycemia Heparin Sodium (Porcine) (Heparin Na) 0 unit IV UD PRN; Protocol Sodium Chloride () 250 mls @ 15 mls/hr IV .[id number] PRN PRN Reason: Saline Flush Last Infusion: 05/05/20 17:09 Dose: 0 mls/hr Documented by: Sodium Chloride () 250 mls @ 15 mls/hr IV .[id number] PRN PRN Reason: Additional IVPB Infusion Heparin Sodium/Dextrose () 25,000 units in 250 mls @ 7 mls/hr IV .[id number] [facility]; Protocol Last Titration: 05/06/20 11:25 Dose: 800 units/hr, 8 mls/hr Documented by: Lisinopril (Zestril) 2.5 mg PO BID [facility] Last Admin: 05/06/20 09:49 Dose: 2.5 mg Documented by: Ondansetron HCl (Zofran) 4 mg IV Q8H PRN PRN PRN Reason: NAUSEA/VOMITING Pantoprazole Sodium (Protonix) 40 mg PO DAILY [facility] Last Admin: 05/06/20 09:49 Dose: 40 mg Documented by: Sodium Chloride () 10 - 40 ml IV UD PRN PRN Reason: SALINE FLUSH Last Admin: 05/06/20 05:37 Dose: 30 ml Documented by: Trazodone HCl (Desyrel) 50 mg PO QHS [facility] Last Admin: 05/05/20 22:17 Dose: 50 mg Documented by: Vancomycin HCl () 125 mg PO Q6 [facility] Last Admin: 05/06/20 11:19 Dose: 125 mg Documented by: Discharge Activity: Return to Normal Activity Call your doctor if you observe: Fever of 101 or Higher, Shortness of breath, Dizziness, Fainting spells, Swelling in the ankles, Chest pain, Increased palpitations (irregular heartbeat) Home Medications: Medications to take at Discharge Albuterol Sulfate [Ventolin Hfa] 1 - 2 puff INHALATION Q4H PRN 11/26/17 Atorvastatin Calcium [Lipitor] 10 mg PO QHS 11/26/17 Diclofenac [Voltaren] 75 mg PO BIDCM 11/26/17 Gabapentin [Neurontin] 600 mg PO QHS 11/26/17 Albuterol Aerosols [Ventolin Aerosols] 2.5 mg INHALATION Q2H PRN PRN #1 box 11/28/17 Fluticasone/Umeclidin/Vilanter [Trelegy Ellipta 100-62.5-25] 1 puff IH DAILY 10/16/18 Famotidine [Pepcid] 20 mg PO QHS 10/30/19 Trazodone HCl 50 mg PO QHS 10/30/19 Lisinopril 5 mg PO QHS 11/05/19 Prednisone See Taper PO UD 11/05/19 Azithromycin 250 mg PO DAILY 05/03/20 Primary Care Physician: Matt Peace MD [Primary Care Provider] - Please follow up with your Primary Care Physician in: 3-5 days after discharge Disposition: Acute care Hospital Minutes spent on discharge:: 35 Patient Condition:: Stable Medical Necessity - Tobacco Use Smoking Status: Former smoker Meaningful Use Info Meaningful Use Diagnoses (Choose all that apply): AMI - AMI/Post PCI/Angioplasty Aspirin given w/in 24hrs of arrival?: Yes ASA at discharge?: Yes Statins at discharge?: Yes [place]/ARB at discharge?: Yes Beta Yassine at discharge?: Yes Done w/ Acute [place] measure.: Yes Documented LVEF (%): 45 Inpatient E&M: [id number] Disch Hosp
--- NOTE | 2020-05-07 14:57 | CASEMGMT ---
[facility] CM DC PHONE CALL DC DATE: 05/06/2020 DC DISPOSITION: Home DC DIAGNOSIS: JIM, GIB LACE/STRATA: 12 F/U APPTS MADE PRIOR TO DC: no Attempted call to phone. No answer and no messaging with name identifier. Sammie JOSEPHN RN ACM
== END 2020-05-06 13:30 | disposition short-term general hospital (02) | DRG 871 ==
LOC: ED 16:10 → ICU 18:53
PROVIDERS: Internal Medicine Cardiovascular Disease; Internal Medicine Critical Care Medicine; Emergency Provider Emergency Medicine; PCP Family Medicine; Visit Provider Family Medicine
DX: A41.4 Sepsis due to anaerobes (principal); I21.4 Non-ST elevation (NSTEMI) myocardial infarction; R65.21 Severe sepsis with septic shock; N17.9 Acute kidney failure, unspecified; A04.72 Enterocolitis due to Clostridium difficile, not specified as recurrent; K62.5 Hemorrhage of anus and rectum; I51.81 Takotsubo syndrome; Z68.1 Body mass index [BMI] 19.9 or less, adult; E46 Unspecified protein-calorie malnutrition; R09.02 Hypoxemia; J44.9 Chronic obstructive pulmonary disease, unspecified; K21.9 Gastro-esophageal reflux disease without esophagitis; I10 Essential (primary) hypertension; E78.5 Hyperlipidemia, unspecified; Z79.899 Other long term (current) drug therapy; Z79.51 Long term (current) use of inhaled steroids; Z87.891 Personal history of nicotine dependence; Z66 Do not resuscitate
CPT/HCPCS: 36556; 36600; 51702; 70450; 71045; 80048; 80053; 81001; 82306; 82803; 83605; 83630; 83735; 84100; 84484; 85014; 85018; 85025; 85610; 85730; 86850; 86900; 86901; 87040; 87086; 87177; 87209; 87493; 87506; 87635; 93005; 93306; 94640; 97161; 97166; 97802; 97803; 99285; G2023; J7030; J7050; A4216; J2405; J3490; U0003

== ENCOUNTER 2020-06-27 10:34 | Emergency (ER) | payer MEDICARE, OTHER, SELFPAY ==
[2020-05-03 20:42] VITALS: BMI 18.1
[2020-06-27] VITALS (8 sets, daily range): BP systolic 118–153; BP diastolic 62–82; PULSE 63–80; RESP 14–24; TEMP 36.4–36.7; O2SAT 93–98; BMI 15.1
--- NOTE | 2020-06-27 10:54 | EKG12_ITS ---
Test Reason : Blood Pressure : / mmHG Vent. Rate : 067 BPM Atrial Rate : 067 BPM P-R Int : 126 ms QRS Dur : 074 ms QT Int : 386 ms P-R-T Axes : 084 024 072 degrees QTc Int : 407 ms Normal sinus rhythm with sinus arrhythmia Low voltage QRS Confirmed by DECLAN CEJA, GERBER ([id number]), news copy editor CATHERINE CARBAJAL ([id number]) on 07/01/2020 11:31:06 AM Referred By: VIOLET Confirmed By:GERBER MANRIQUEZ MD
--- NOTE | 2020-06-27 10:54 | RAD_ITS ---
STUDY: X-RAY CHEST REASON FOR EXAM: Female, 74 years old. Increased SOB, cough, congestion and chest tightness x 2 days. TECHNIQUE: Single AP portable view of the chest. COMPARISON: 05/04/2020 FINDINGS: Status post anterior cervical discectomy and fusion lower cervical spine. There is hyperinflation of the lungs consistent with chronic obstructive lung disease (COPD). There is no demonstrated pleural abnormality. Normal size heart. Normal mediastinum and marco antonio. Normal visualized pulmonary arteries. Normal visualized aortic arch and descending thoracic aorta. Normal visualized thoracic spine. Normal visualized ribs, clavicles, and shoulders. There is no demonstrated abnormality of the visualized soft tissue structures of the upper abdomen. RAD/Chest 1 View (Portable) IMPRESSION: Emphysema without pneumonia or atelectasis. Electronically Signed: Joseph Virk MD at 12:55 EDT Tel , Service support ,
--- NOTE | 2020-06-27 10:55 | ED.DCSUM_ITS ---
History of Present Illness Chief Complaint: Shortness of Breath Informant: Patient Narrative: 4-year-old female with past medical history of COPD presents with concern for shortness of breath worsening over the past 4 to 5 days. States that she has had a cough which is been productive of yellow-green sputum. Worse on exertion. Denies any chest pain, nausea, vomiting, diaphoresis. Patient is not oxygen dependent. States that she also was recently diagnosed with a UTI. States that she was placed on antibiotics which have not resolved her urinary symptoms. Denies any fever or chills. Patient states that she has been quarantining at home in her house and has not been out into public. Past Medical History - Allergies and Home Meds Allergies/Adverse Reactions: Allergies Sulfa (Sulfonamide Antibiotics) Allergy (Verified 06/27/20 10:34) FACE GETS RED AND ITCHY codeine Adverse Reaction (Verified 06/27/20 10:34) Nausea Primary Care Physician: Matt Peace MD [Primary Care Provider] - Past Medical History: - - COPD Surgical History: cholecystectomy, hysterectomy, - - spinal surgery Smoking Status: Former smoker Alcohol: None Drugs: None - Family History Maternal Family History: Family History (Last Reviewed 05/03/20 @ 18:[address] Gerry Hurtado DO) Father Kidney disease Sister Breast cancer Sister Cancer Family History: Reports: Heart Disease Paternal Family History: Family History (Last Reviewed 05/03/20 @ 18:[address] Gerry Hurtado DO) Father Kidney disease Sister Breast cancer Sister Cancer Family History: Reports: Renal Disease Review of Systems General: Denies: Chills, Fever, Sweats Eyes: Denies: Visual changes - bilaterally, Diplopia ENT: Denies: Rhinorrhea, Sore throat Cardiovascular: Denies: Chest pain, Palpitations Respiratory: Reports: Dyspnea, Cough, Sputum. Denies: Dyspnea on exertion Gastrointestinal: Denies: Abdominal pain, Nausea, Vomiting, Diarrhea, Melena, Hematochezia Genitourinary: Denies: Dysuria, Hematuria, Frequency Musculoskeletal: Denies: Back pain, Extremity Pain Skin: Denies: Rash, Wounds Neurological: Denies: Headache, Weakness, Numbness Physical Exam Vital Signs/Narrative: Vital Signs Temp Pulse Resp BP Pulse Ox 06/27/20 10:34 97.6 F L 80 20 H 118/72 94 Inital Vital Signs reviewed: Yes General: Well nourished, Well developed, No Acute Distress Head: Normocephalic, Atraumatic Eyes: Perrl, EOMI ENT: Moist mucous membranes, No rhinorrhea Neck: Supple, Nontender Cardiovascular: Regular rate, Regular rhythm, No murmurs Respiratory: No distress, Chest nontender, - - Bilateral coarse breath sounds with expiratory wheezing. Abdomen: Soft, Nontender, Nondistended, Normal bowel sounds Back: Nontender, Normal Inspection Extremities: Nontender, No edema Skin: Normal color, No rash Neurological: Alert, Oriented x3, Cranial nerves II-XII grossly intact, Normal Strength, Normal Sensation Psychological: Normal affect, Normal Mood Diagnostic/Tx/Re-eval Chest X-Ray - ED: 1 View, Chronic Changes Clinical Impression(s) from Imaging Studies Chest X-Ray 06/27/20 10:54 IMPRESSION: Emphysema without pneumonia or atelectasis. Electronically Signed: Joseph Virk MD at 12:55 EDT Tel , Service support , Laboratory Data 06/27/20 06/27/20 06/27/20 11:10 11:10 11:54 WBC 7.4 RBC 3.83 L Hgb 12.5 Hct 37.9 MCV 99.0 MCH 32.6 H MCHC 33.0 RDW Std Deviation 49.4 H RDW Coeff of Ashu 13.5 Plt Count 440 MPV 9.2 Immature Gran % (Auto) 0.300 Neut % (Auto) 79.2 H Lymph % (Auto) 10.8 L [place] % (Auto) 9.3 Eos % (Auto) 0.3 Baso % (Auto) 0.1 Absolute Neuts (auto) 5.9 Absolute Lymphs (auto) 0.80 L Nucleated RBC % 0 Sodium 125 L Potassium 4.4 Chloride 91 L Carbon Dioxide 31.0 Anion Gap 3 L BUN 18 Creatinine 1.15 H Estim Creat Clear Calc 28.39 Est GFR (MDRD) Af Amer 59 L Est GFR (MDRD) Non-Af 49 L BUN/Creatinine Ratio 15.7 Glucose 99 Calcium 8.9 Troponin I < 0.015 Urine Color Yellow Urine Clarity Clear Urine pH 6.5 Ur Specific [place] 1.010 Urine Protein Negative Urine Glucose (UA) Normal Urine Ketones Negative Urine Occult Blood Negative Urine Nitrite Positive H Urine Bilirubin Negative Urine Urobilinogen Normal Ur Leukocyte Esterase 500 H Urine RBC 0 SEEN Urine WBC 0-5 SEEN Ur Squamous Epith Cells 0 SEEN Urine Bacteria 3+ Urine Mucus 0 SEEN COVID-19 (LOGAN) 06/27/20 12:57 WBC RBC Hgb Hct MCV MCH MCHC RDW Std Deviation RDW Coeff of Ashu Plt Count MPV Immature Gran % (Auto) Neut % (Auto) Lymph % (Auto) [place] % (Auto) Eos % (Auto) Baso % (Auto) Absolute Neuts (auto) Absolute Lymphs (auto) Nucleated RBC % Sodium Potassium Chloride Carbon Dioxide Anion Gap BUN Creatinine Estim Creat Clear Calc Est GFR (MDRD) Af Amer Est GFR (MDRD) Non-Af BUN/Creatinine Ratio Glucose Calcium Troponin I Urine Color Urine Clarity Urine pH Ur Specific [place] Urine Protein Urine Glucose (UA) Urine Ketones Urine Occult Blood Urine Nitrite Urine Bilirubin Urine Urobilinogen Ur Leukocyte Esterase Urine RBC Urine WBC Ur Squamous Epith Cells Urine Bacteria Urine Mucus COVID-19 (LOGAN) Negative - Medical Decision Making Appears well and nontoxic. Vital signs within normal limits. Bilateral coarse breath sounds with expiratory wheezing. Given aerosol breathing treatments as well as Solu-Medrol. Urinalysis shows continued UTI and patient be placed on 4 times a day Keflex. Urine sent for culture. Patient has a hyponatremia of 125. Patient has had low sodium before in the past. States that she does drink a lot of water. Had already been given 1 L normal saline. Advised on fluid restriction at home. Patient chronic kidney disease at baseline. Following breathing treatments patient is feeling much improved. Patient has aerosols at home will be given prednisone as well as Keflex. Asked to follow-up with primary care provider. Was offered admission given her low sodium but was refusing at this time and wishes to be discharged. Coronavirus negative. Discharged home in stable condition. Impression: 1. UTI 2. COPD exacerbation 3. Hyponatremia 4. Chronic kidney disease ED Disposition - Plan for ED Patient: Disposition: Home or Assisted Living Diagnosis: COPD (chronic obstructive pulmonary disease), UTI (urinary tract infection), Hyponatremia Instructions: Understanding Urinary Tract Infections (UTIs), Care for COPD, Hyponatremia Prescriptions: Prednisone [Deltasone] 40 mg PO DAILY #10 tab Prescription Printed Cephalexin [Keflex] 500 mg PO Q12 #14 cap Prescription Printed Referrals: Matt Peace MD [Primary Care Provider] -
[2020-06-27] MEDS: Albuterol 2.5 MG/3 ML VIAL.NEB. INHALATION (11:16)
[2020-06-27] MEDS: Ipratropium/Albuterol Sulfate 3 ML AMPUL.NEB INHALATION (11:16)
[2020-06-27 11:37] LABS: Absolute Neutrophil Count 5.9 X10^3/uL (2.0-7.7); Basophil# 0.01 X10^3/uL; Basophil% 0.1 % (0-1); Eosinophil# 0.02 X10^3/uL; Eosinophils% 0.3 % (0-5); Hematocrit 37.9 % (37-47); Hemoglobin 12.5 g/dL (12.0-15.0); Lymphocyte % 10.8 % (19-41); Mean Corpuscular Hgb 32.6 pg (27.0-32.0); Mean Platelet Vol. 9.2 fl (6.2-12.0); Monocyte# 0.69 X10^3/uL; Monocyte% 9.3 % (0-10); NRBC Flagged by Analyzer 0 % (0-5); Neutrophil # 5.87 X10^3/uL (2.7-7.7); Neutrophil % 79.2 % (47-70); Platelet Count 440 K/mm3 (150-450); RBC Distribution Width CV 13.5 % (11.6-14.6); RBC Distribution Width SD 49.4 fl (35.1-43.9); Red Blood Count 3.83 M/mm3 (4.2-5.4); White Blood Count 7.4 K/mm3 (4.4-11.0)
[2020-06-27] MEDS: MethylPREDNISolone 125 MG/2 ML Vial IV (11:41)
[2020-06-27 11:54] LABS: Anion Gap 3 (5-15); BUN 18 mg/dL (7-18); BUN/Creat Ratio 15.7 RATIO (10-20); Calcium,Total 8.9 mg/dL (8.5-10.1); Chloride 91 mmol/L (98-107); Creatinine, Serum 1.15 mg/dL (0.55-1.02); EST Glomerular Filtration Rate 49 mL/min (>60); Est Glom Filt Rate - Afr Amer 59 mL/min (>60); Estimated Creatinine Clearance 28.39 ml/min; Glucose 99 mg/dL (74-106); Potassium 4.4 mmol/L (3.5-5.1); Sodium Level 125 mmol/L (136-145)
[2020-06-27 12:01] LABS: Color, Urine Yellow (Yellow); Glucose, Dipstick Normal (Normal); Ketone-Dipstick Negative (Negative); Leukocyte Esterase-Dipstick 500 /ul (Negative); Mucous, Urine 0 SEEN /hpf (<or=2+); Nitrite-Dipstick Positive (Negative); Occult Blood-Urine Negative /ul (Negative); Protein-Dipstick Negative (Negative); Red Blood Cells-Urine 0 SEEN /hpf (0-5); Squamous Epithelial Cells - UA 0 SEEN /hpf (5-10); Urine Bilirubin Dipstick Negative (Negative); Urine Clarity Clear (Clear); Urine Urobilinogen Normal (Normal); Urine pH 6.5 (5.0 - 8.0)
[2020-06-27 12:12] LABS: Bacteria 3+ /hpf (None Seen); White Blood Cells 0-5 SEEN /hpf (0-5)
[2020-06-27] MEDS: Ceftriaxone 1 GM/50 ML BAG IV (12:49)
[2020-06-27 14:06] LABS: Probe Check PASS; Specimen Processing Control PASS
== END 2020-06-27 14:31 | disposition home or self-care (01) ==
PROVIDERS: Emergency Provider Emergency Medicine; PCP Family Medicine
DX: J44.1 Chronic obstructive pulmonary disease with (acute) exacerbation (principal); N39.0 Urinary tract infection, site not specified; E87.1 Hypo-osmolality and hyponatremia; N18.9 Chronic kidney disease, unspecified; Z87.891 Personal history of nicotine dependence; Z79.51 Long term (current) use of inhaled steroids
CPT/HCPCS: 71045; 80048; 81001; 84484; 85025; 87077; 87086; 87088; 87186; 87635; 93005; 94799; 96365; 96375; 99285; J7030; A4216; U0003

== ENCOUNTER 2021-01-11 16:13 | Inpatient (IN) | payer MEDICARE, OTHER, SELFPAY ==
[2020-06-27 10:34] VITALS: BMI 15.1
[2021-01-11] VITALS (12 sets, daily range): BP systolic 128–159; BP diastolic 64–107; PULSE 60–79; RESP 16–28; TEMP 35.8–36.8; O2SAT 93–100; BMI 14.6; BMI 14.7
--- NOTE | 2021-01-11 16:22 | EKG12_ITS ---
Test Reason : SOB Blood Pressure : / mmHG Vent. Rate : 060 BPM Atrial Rate : 060 BPM P-R Int : 110 ms QRS Dur : 084 ms QT Int : 418 ms P-R-T Axes : 079 052 071 degrees QTc Int : 418 ms Sinus rhythm with short [place] Indeterminate axis Borderline ECG Confirmed by CIHKA CEJA, YOLY ([id number]), film or videotape editor CATHERINE CARBAJAL ([id number]) on 01/13/2021 12:56:41 PM Referred By: JONH Confirmed By:YOLY FARR MD
--- NOTE | 2021-01-11 16:23 | ED.VIS.GEN ---
History of Present Illness Chief Complaint: Shortness of Breath Informant: Patient Onset: Days Context: Gradual Onset Timing: Continuous Current Severity: Moderate Maximum Severity: Moderate Narrative: Patient is a 75-year-old female with medical history significant for COPD who is not on home oxygen, hypertension, congestive heart failure who presents to the emergency department shortness of breath. Patient states for the past 3 to 4 days, she has had increasing shortness of breath. She is had cough with scant sputum. She denies fevers but has had chills. She states she feels like she cannot catch her breath. She is not on oxygen at home. On arrival, the patient has tachypnea, diminished lung sounds, and is 86% on room air. She denies any recent sick contacts. She denies any chest pain, edema, orthopnea. Prior similar symptoms: Yes Recent Illness/Hospitalization: No Past Medical History - Allergies and Home Meds Allergies/Adverse Reactions: Allergies Sulfa (Sulfonamide Antibiotics) Allergy (Verified 06/27/20 10:34) FACE GETS RED AND ITCHY codeine Adverse Reaction (Verified 06/27/20 10:34) Nausea Primary Care Physician: Matt Peace MD [Primary Care Provider] - Prior records reviewed: Yes Past Medical History: - - COPD, CHF Surgical History: cholecystectomy, hysterectomy, - - spinal surgery Smoking Status: Former smoker - Family History Maternal Family History: Family History (Last Reviewed 05/03/20 @ 18:[address] Gerry Hurtado DO) Father Kidney disease Sister Breast cancer Sister Cancer Family History: Reports: Heart Disease Paternal Family History: Family History (Last Reviewed 05/03/20 @ 18:[address] Gerry Hurtado DO) Father Kidney disease Sister Breast cancer Sister Cancer Family History: Reports: Renal Disease Review of Systems General: Denies: Chills, Fever, Sweats Eyes: Denies: Visual changes - bilaterally, Diplopia ENT: Denies: Rhinorrhea, Sore throat Cardiovascular: Denies: Chest pain, Palpitations Respiratory: Reports: Dyspnea, Cough, Dyspnea on exertion Gastrointestinal: Denies: Abdominal pain, Nausea, Vomiting, Diarrhea, Melena, Hematochezia Genitourinary: Denies: Dysuria, Hematuria, Frequency Musculoskeletal: Denies: Back pain, Extremity Pain Skin: Denies: Rash, Wounds Neurological: Denies: Headache, Weakness, Numbness Physical Exam Vital Signs/Narrative: Vital Signs Temp Pulse Resp BP Pulse Ox 01/11/21 16:16 96.5 F L 69 18 159/72 H 96 01/11/21 16:14 96.5 F L 67 18 159/72 H 96 Inital Vital Signs reviewed: Yes General: Well nourished, Well developed, No Acute Distress Head: Normocephalic, Atraumatic Eyes: Perrl, EOMI ENT: Moist mucous membranes, No rhinorrhea Neck: Supple, Nontender Cardiovascular: Regular rate, Regular rhythm, No murmurs Respiratory: Chest nontender, Wheezing, Diminished, Decreased Air Movement Abdomen: Soft, Nontender, Nondistended, Normal bowel sounds Back: Nontender, Normal Inspection Extremities: Nontender, No edema Skin: Normal color, No rash Neurological: Alert, Oriented x3, Cranial nerves II-XII grossly intact, Normal Strength, Normal Sensation Psychological: Normal affect, Normal Mood Diagnostic/Tx/Re-eval Chest X-Ray - ED: 1 View, Read by ED Physician, Normal, Heart, Mediastinum, Bony Structures, Chronic Changes, No Infiltrates Abnormal Lab Results 01/11/21 01/11/21 01/11/21 16:35 16:35 16:43 WBC 7.2 RBC 4.05 L Hgb 12.8 Hct 40.1 MCV 99.0 MCH 31.6 MCHC 31.9 L RDW Std Deviation 47.1 H RDW Coeff of Ashu 12.8 Plt Count 278 MPV 9.8 Immature Gran % (Auto) 0.100 Neut % (Auto) 55.3 Lymph % (Auto) 16.2 L Graves % (Auto) 7.8 Eos % (Auto) 19.8 H Baso % (Auto) 0.8 Absolute Neuts (auto) 4.0 Absolute Lymphs (auto) 1.16 Nucleated RBC % 0 Sodium 129 L Potassium 4.3 Chloride 97 L Carbon Dioxide 28.0 Anion Gap 4 L BUN 14 Creatinine 0.88 Estim Creat Clear Calc 35.42 Est GFR (MDRD) Af Amer 81 Est GFR (MDRD) Non-Af 67 BUN/Creatinine Ratio 15.9 Glucose 86 Lactic Acid 1.1 Calcium 8.8 Troponin I < 0.015 - Rhythm Strip Rhythm Strip: Sinus Rhythm Rate: 80 Ectopy: None - EKG Initial EKG Interpretation: Sinus Rhythm, No Acute Injury Pattern Prior: Unchanged - Medical Decision Making The patient presents hypoxic and tachypneic. She was 86% on room air. She was transitioned to nasal cannula to the low 90s. After nebulized breathing treatments, her oxygen saturations had increased. She still has persistent tachypnea and bronchospasm. She is covered with steroids. Chest x-ray was obtained. There is no focal infiltrative process. Labs are also unremarkable. However, given the patient's increasing dyspnea, persistent bronchospasm, and tachypnea I do feel that she would benefit from admission for continued respiratory care. The patient was discussed with the hospitalist. Impression 1. COPD exacerbation ED Disposition - Plan for ED Patient: Referrals: Matt Peace MD [Primary Care Provider] -
[2021-01-11 16:45] LABS: Absolute Lymphocyte Count 1.16 X10^3/uL (0.83-4.51); Basophil# 0.06 X10^3/uL; Basophil% 0.8 % (0-1); Eosinophil# 1.42 X10^3/uL; Eosinophils% 19.8 % (0-5); Hematocrit 40.1 % (37-47); Hemoglobin 12.8 g/dL (12.0-15.0); Lymphocyte # 1.16 X10^3/ul (4.0); Lymphocyte % 16.2 % (19-41); Mean Corp Hgb Conc 31.9 g/dL (32-36); Mean Corpuscular Hgb 31.6 pg (27.0-32.0); Mean Platelet Vol. 9.8 fl (6.2-12.0); Monocyte# 0.56 X10^3/uL; Monocyte% 7.8 % (0-10); NRBC Flagged by Analyzer 0 % (0-5); Neutrophil # 3.95 X10^3/uL (2.7-7.7); Neutrophil % 55.3 % (47-70); Platelet Count 278 K/mm3 (150-450); RBC Distribution Width CV 12.8 % (11.6-14.6); RBC Distribution Width SD 47.1 fl (35.1-43.9); Red Blood Count 4.05 M/mm3 (4.2-5.4); White Blood Count 7.2 K/mm3 (4.4-11.0)
[2021-01-11] MEDS: Ipratropium/Albuterol Sulfate 3 ML AMPUL.NEB INHALATION ×2 (16:55→21:30)
[2021-01-11] MEDS: MethylPREDNISolone 125 MG/2 ML Vial IV (16:56)
[2021-01-11 17:11] LABS: Anion Gap 4 (5-15); BUN 14 mg/dL (7-18); BUN/Creat Ratio 15.9 RATIO (10-20); Calcium,Total 8.8 mg/dL (8.5-10.1); Chloride 97 mmol/L (98-107); Creatinine, Serum 0.88 mg/dL (0.55-1.02); EST Glomerular Filtration Rate 67 mL/min (>60); Est Glom Filt Rate - Afr Amer 81 mL/min (>60); Estimated Creatinine Clearance 35.42 ml/min; Glucose 86 mg/dL (74-106); Potassium 4.3 mmol/L (3.5-5.1); Sodium Level 129 mmol/L (136-145)
--- NOTE | 2021-01-11 17:20 | RAD_ITS ---
STUDY: X-RAY CHEST REASON FOR EXAM: Female, 75 years old. cough TECHNIQUE: AP portable COMPARISON: (06/27/2020 FINDINGS: Lungs are hyperinflated but clear. There is no demonstrated pleural abnormality. Normal size heart. Normal mediastinum and marco antonio. Normal visualized pulmonary arteries. Mildly calcified aortic arch and descending thoracic aorta. Dorsal spine demonstrates mild scoliosis.. Normal visualized ribs, clavicles, and shoulders. Postsurgical changes of the cervical spine There is no demonstrated abnormality of the visualized soft tissue structures of the upper abdomen. No significant change since prior exam RAD/Chest 1 View (Portable) IMPRESSION: COPD. No acute cardiopulmonary pathology Electronically Signed: Matt Contreras MD at 18:05 EDT , Service support ,
[2021-01-11 17:23] LABS: Lactic Acid 1.1 mmol/L (0.4-1.9)
[2021-01-11] MEDS: Albuterol 2.5 MG/3 ML VIAL.NEB. INHALATION (17:30)
[2021-01-11 17:38] LABS: BNP,B-Type NATRIURETIC PEPTIDE 74.8 pg/mL (0-100)
--- NOTE | 2021-01-11 18:06 | HP.PCM_ITS ---
<Lorraine Mckinley - Last Filed: 01/11/21 19:13> Problem List (1) COPD with acute exacerbation Status: Acute (2) Protein calorie malnutrition Status: Chronic (3) HLD (hyperlipidemia) Status: Chronic (4) Hypertension Status: Chronic History of Present Illness Date of Admission: 01/11/21 Chief Complaint: Shortness of breath The patient is a 75 year old F who presents with a 4-day history of increasing shortness of breath. Patient states she has been using her nebulizer treatments at home but her symptoms have not improved. Patient reports coughing up thick clear sputum at times. Patient also reports urinary frequency which she feels has contributed to her shortness of breath due to having to go up and down the stairs to get the bathroom at her home. Patient has a history of COPD, hypertension, hyperlipidemia, and neurogenic bladder and bowel. Patient was tested for Covid in the ER and was negative, respiratory panel pending. Patient complains of chills and cough: Denies fevers, chest pain, edema, orthopnea. Patient currently 100% pulse ox on 2 L nasal cannula, respiratory rate 20. Past Medical History Past Medical History (Chronic Problems): Chronic Problems (Last Reviewed 01/11/21 @ 18:13 by Lorraine Mckinley, JONATHAN-C) Hypertension (Chronic) Protein calorie malnutrition (Chronic) Neurogenic bowel (Chronic) Neurogenic bladder (Chronic) HLD (hyperlipidemia) (Chronic) Medical History: Medical History (Last Reviewed 01/11/21 @ 18:13 by Lorraine Mckinley, JONATHAN-C) Guaiac positive stools (Acute) R19.5 COPD (chronic obstructive pulmonary disease) J44.9 History of left heart catheterization (LHC) Onset Date: ~06/02/20 Z98.890 normal coronaries per cath 06/02/20 @ [facility] Allergies Sulfa (Sulfonamide Antibiotics) Allergy (Verified 06/27/20 10:34) FACE GETS RED AND ITCHY codeine Adverse Reaction (Verified 06/27/20 10:34) Nausea Home Medications: Ambulatory Orders Medication Instructions Recorded Albuterol Sulfate [Ventolin Hfa] 1 - 2 puff INHALATION Q4H PRN 11/26/17 Gabapentin [Neurontin] 600 mg PO QHS 11/26/17 Albuterol Aerosols [Ventolin 2.5 mg INHALATION Q2H PRN PRN #1 11/28/17 Aerosols] box Fluticasone/Umeclidin/Vilanter 1 puff IH DAILY 10/16/18 [Trelegy Ellipta 100-62.5-25] Trazodone HCl 50 mg PO QHS PRN PRN 10/30/19 Atorvastatin Calcium 20 mg PO QHS 06/27/20 Carvedilol 3.125 mg PO BID 06/27/20 Aspirin 81 mg PO DAILY 01/11/21 Lisinopril 5 mg PO QHS 01/11/21 Surgical History: Surgical History (Last Reviewed 01/11/21 @ 18:13 by TRACI SantosC) History of back surgery Z98.890 History of breast lump removal Z98.890 History of hysterectomy Z90.710 Surgical History: cholecystectomy, hysterectomy, - - spinal surgery Psychiatric History: No pertinent psych hx 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 Gerry Hurtado DO) Father Kidney disease Sister Breast cancer Sister Cancer History Items: Heart Disease Paternal Family History: Family History (Last Reviewed 05/03/20 @ 18:[address] Gerry Hurtado DO) Father Kidney disease Sister Breast cancer Sister Cancer History Items: Renal Disease Review of Systems Constitutional: Reports: Chills. Denies: Fever, Weight Change HEENT: Denies: Head Aches, Sinus Congestion, Sinus Drainage Cardiovascular: Denies: Chest Pain, Palpitations Respiratory: Reports: Cough, Shortness of Breath, Sputum production - Clear, thick, Wheezing Gastrointestinal: Denies: Abdominal Pain, Nausea, Vomiting Genitourinary: Reports: Frequency Musculoskeletal: Denies: Joint Pain, Joint Tenderness Skin: Denies: Rash, Wounds Neurological: Denies: Numbness, Tingling, Focal weakness Psychiatric: Denies: Anxiety, Depression, Homicidal Ideations, Suicidal Ideations Hematologic/ Lymphatic: Denies: Easy Bruising, Easy Bleeding VTE Information - Inpt Only VTE Present on Admission: No VTE Mechan Device Prophylaxis: None VTE Pharm Prophylaxis ordered?: Yes Patient Problems: Active and Suspected Problems (Last Reviewed 01/11/21 @ 18:13 by Lorraine Knoble, MISSION ASSESSMENT SPECIALIST-C) COPD with acute exacerbation (Acute) - Physical Exam Vitals/I&O's: Vital Signs Temp Pulse Resp BP Pulse Ox 96.8 F L 60 20 H 159/72 H 100 01/11/21 17:02 01/11/21 17:42 01/11/21 17:42 01/11/21 17:02 01/11/21 17:17 Oxygen Flow Rate (L/min) 2 Oxygen Delivery Method Nasal Cannula Weight: 88 lb 2.958 oz Body Mass Index (BMI) 14.6 General: Alert, Oriented x3, Cooperative HEENT: Atraumatic, PERRLA, EOMI, Normocephalic Neck: Supple, No JVD, Negative Carotid Bruits Lungs: Short of Breath, Wheezes Cardiovascular: Regular rate, Regular Rhythm, Normal S1, Normal S2, No murmurs Abdomen: Bowel Sounds Present, Soft, Non Tender Extremities: No edema, Capillary Refill Less than 3 Seconds Skin: No rashes, No breakdown Musculoskeletal: No Tenderness to Palpation of Joints or Extremities Neurological: Cranial nerves II-XII grossly intact Psych/Mental Status: Normal Affect, Appropriate Microbiology Past 72 Hours 01/11/21 16:45 Mucosa - Nose SARS-CoV-2 Antigen (Rapid) - Final Laboratory Results 01/11/21 16:35: WBC 7.2, RBC 4.05 L, Hgb 12.8, Hct 40.1, MCV 99.0, MCH 31.6, MCHC 31.9 L, RDW Std Deviation 47.1 H, RDW Coeff of Ashu 12.8, Plt Count 278, MPV 9.8, Immature Gran % (Auto) 0.100, Neut % (Auto) 55.3, Lymph % (Auto) 16.2 L, Collier % (Auto) 7.8, Eos % (Auto) 19.8 H, Baso % (Auto) 0.8, Absolute Neuts (auto) 4.0, Absolute Lymphs (auto) 1.16, Nucleated RBC % 0 01/11/21 16:35: Sodium 129 L, Potassium 4.3, Chloride 97 L, Carbon Dioxide 28.0, Anion Gap 4 L, BUN 14, Creatinine 0.88, Estim Creat Clear Calc 35.42, Est GFR (MDRD) Af Amer 81, Est GFR (MDRD) Non-Af 67, BUN/Creatinine Ratio 15.9, Glucose 86, Calcium 8.8, Troponin I < 0.015 01/11/21 16:35: B-Natriuretic Peptide 74.8 01/11/21 16:43: Lactic Acid 1.1 Current Medications Azithromycin 500 mg/ Dextrose 255 mls @ 250 mls/hr IV X1 ONE Stop: 01/11/21 18:43 Assessment/Plan All Active Problems (Last Reviewed 01/11/21 @ 18:13 by CULLEN Santos) COPD with acute exacerbation (Acute) Hypoxia (Acute) Shock (Acute) JIM (acute kidney injury) (Acute) GI bleed (Acute) NSTEMI (non-ST elevated myocardial infarction) (Acute) Cardiac dysrhythmia (Acute) Cardiomyopathy (Acute) Guaiac positive stools (Acute) Acute diarrhea (Acute) 1. COPD with acute exacerbation- Albuterol and Duoneb aerosols ordered and continue Trelegy. Azithromycin 500mg IV daily ordered, blood cultures pending. CXR negative for acute findings. Covid antigen negative, Respiratory panel pending. Check CBC in am. 2. Hyponatremia-chronic. will check CMP in am 3.Hypertension-continue home regimen 4. Hyperlipidemia-Continue home regimen. 5. Protein-calorie malnutrition-consult nutrition DVT prophylaxis- sc Lovenox This patient was seen by CULLEN Santos under the supervision of Dr. Putnam. <Anne Putnam - Last Filed: 01/11/21 19:47> History of Present Illness The patient is a 75 year old F [] Past Medical History Medical History: Medical History (Last Reviewed 01/11/21 @ 18:13 by CULLEN Santos) Guaiac positive stools (Acute) R19.5 COPD (chronic obstructive pulmonary disease) J44.9 History of left heart catheterization (LHC) Onset Date: ~06/02/20 Z98.890 normal coronaries per cath 06/02/20 @ [facility] Allergies Sulfa (Sulfonamide Antibiotics) Allergy (Verified 06/27/20 10:34) FACE GETS RED AND ITCHY codeine Adverse Reaction (Verified 06/27/20 10:34) Nausea Surgical History: Surgical History (Last Reviewed 01/11/21 @ 18:13 by CULLEN Santos) History of back surgery Z98.890 History of breast lump removal Z98.890 History of hysterectomy Z90.710 - *Family History Maternal Family History: Family History (Last Reviewed 05/03/20 @ 18:[address] Gerry Hurtado DO) Father Kidney disease Sister Breast cancer Sister Cancer Paternal Family History: Family History (Last Reviewed 05/03/20 @ 18:[address] Gerry Hurtado DO) Father Kidney disease Sister Breast cancer Sister Cancer - Physical Exam Vitals/I&O's: Vital Signs Temp Pulse Resp BP Pulse Ox 97.9 F 75 20 H 128/75 H 93 01/11/21 18:08 01/11/21 19:00 01/11/21 19:00 01/11/21 19:00 01/11/21 19:00 Oxygen Flow Rate (L/min) 3 Oxygen Delivery Method Nasal Cannula Weight: 40 kg Body Mass Index (BMI) 14.6 Microbiology Past 72 Hours 01/11/21 16:45 Mucosa - Nose SARS-CoV-2 Antigen (Rapid) - Final Laboratory Results 01/11/21 16:35: WBC 7.2, RBC 4.05 L, Hgb 12.8, Hct 40.1, MCV 99.0, MCH 31.6, MCHC 31.9 L, RDW Std Deviation 47.1 H, RDW Coeff of Ashu 12.8, Plt Count 278, MPV 9.8, Immature Gran % (Auto) 0.100, Neut % (Auto) 55.3, Lymph % (Auto) 16.2 L, Collier % (Auto) 7.8, Eos % (Auto) 19.8 H, Baso % (Auto) 0.8, Absolute Neuts (auto) 4.0, Absolute Lymphs (auto) 1.16, Nucleated RBC % 0 01/11/21 16:35: Sodium 129 L, Potassium 4.3, Chloride 97 L, Carbon Dioxide 28.0, Anion Gap 4 L, BUN 14, Creatinine 0.88, Estim Creat Clear Calc 35.42, Est GFR (MDRD) Af Amer 81, Est GFR (MDRD) Non-Af 67, BUN/Creatinine Ratio 15.9, Glucose 86, Calcium 8.8, Troponin I < 0.015 01/11/21 16:35: B-Natriuretic Peptide 74.8 01/11/21 16:43: Lactic Acid 1.1 Current Medications Sodium Chloride () 250 mls @ 15 mls/hr IV .[id number] PRN PRN Reason: Saline Flush Last Admin: 01/11/21 18:27 Dose: 15 mls/hr Documented by: Sodium Chloride () 250 mls @ 15 mls/hr IV .[id number] PRN PRN Reason: Additional IVPB Infusion Assessment/Plan This patient was seen in conjunction with Fiona Weaver NP. I have independently interviewed and examined the patient and reviewed pertinent historical, laboratory, and other data. Please refer to her note for patient's presentation, findings, and recommendations. 75-year-old female with past medical history of COPD, hypertension, hyperlipidemia who comes in with a 4-day history progressive shortness of breath initially with exertion and now at rest. She denied any sick contacts. She has not been going up. She admits to wheezing; coughs up clear sputum. Denies any fever but admits to some chills. COVID-19 rapid antigen test was negative. Chest x-ray showed no infiltrates. Vitals were reviewed -stable Physical Exam: Gen: Comfortable, not pale, not jaundiced, alert oriented x3 CVS:HS I +II, regular, no murmurs RESP: Diminished at lung bases, wheezes++ GI: BS present and normal, nontender, no palpable organs EXT:No edema Labs reviewed: ASSESSMENT: 1. Acute COPD exacerbation 2. Hypertension 3. Chronic hyponatremia 4. Severe protein calorie malnutrition 5. Hyperlipidemia Meds reviewed Plan: Continue on breathing treatments, IV solumedrol Azithromycin IV Respiratory panel pending Encourage use of incentive spirometer Inpatient E&M: [id number] Init Hosp L2
--- NOTE | 2021-01-11 18:09 | ED.RN ---
per dr. ching sepsis screen can be cancelled.
[2021-01-11] MEDS: Lisinopril 5 MG Tablet PO (22:00)
[2021-01-11] MEDS: Carvedilol 3.125 MG TABLET PO (22:00)
[2021-01-11] MEDS: Atorvastatin Calcium 20 MG Tablet PO (22:00)
[2021-01-11] MEDS: Gabapentin 600 MG Tablet PO (22:00)
[2021-01-11] MEDS: traZODone 50 MG Tablet PO (22:00)
[2021-01-11 22:24] LABS: Mucous, Urine 0 SEEN /hpf (<or=2+); Red Blood Cells-Urine 0 SEEN /hpf (0-5)
[2021-01-11 22:30] LABS: Color, Urine Yellow (Yellow); Glucose, Dipstick 50 mg/dl (Normal); Ketone-Dipstick Negative (Negative); Leukocyte Esterase-Dipstick 25 /ul (Negative); Nitrite-Dipstick Positive (Negative); Occult Blood-Urine 25 /ul (Negative); Protein-Dipstick Negative (Negative); Urine Bilirubin Dipstick Negative (Negative); Urine Clarity Clear (Clear); Urine Urobilinogen Normal (Normal)
[2021-01-11 22:52] LABS: Squamous Epithelial Cells - UA 5-10 SEEN /hpf (5-10); White Blood Cells 0-5 SEEN /hpf (0-5)
[2021-01-11 22:53] LABS: Bacteria 1+ /hpf (None Seen); Hyaline Cast 0-5 SEEN /lpf (0-5)
[2021-01-12] VITALS (8 sets, daily range): BP systolic 126–152; BP diastolic 57–67; PULSE 68–84; RESP 17–20; TEMP 36.5–36.8; O2SAT 92–98; BMI 14.6
[2021-01-12] MEDS: 0.9% Saline Lock 10 ML Syringe IV (06:20)
[2021-01-12 06:50] LABS: Absolute Lymphocyte Count 0.37 X10^3/uL (0.83-4.51); Absolute Neutrophil Count 2.6 X10^3/uL (2.0-7.7); Hematocrit 35.7 % (37-47); Hemoglobin 11.8 g/dL (12.0-15.0); Lymphocyte # 0.37 X10^3/ul (4.0); Lymphocyte % 12.1 % (19-41); Mean Corp Hgb Conc 33.1 g/dL (32-36); Mean Corpuscular Volume 96.7 fL (81-99); Mean Platelet Vol. 9.7 fl (6.2-12.0); Monocyte# 0.03 X10^3/uL; NRBC Flagged by Analyzer 0 % (0-5); Neutrophil # 2.64 X10^3/uL (2.7-7.7); Neutrophil % 86.6 % (47-70); POSITIVE DIFFERENTIAL YES; Platelet Count 247 K/mm3 (150-450); RBC Distribution Width CV 12.8 % (11.6-14.6); RBC Distribution Width SD 45.8 fl (35.1-43.9); Red Blood Count 3.69 M/mm3 (4.2-5.4); White Blood Count 3.1 K/mm3 (4.4-11.0)
[2021-01-12 06:54] LABS: Differential Indicated SCAN CRITERIA MET
[2021-01-12] MEDS: Ipratropium/Albuterol Sulfate 3 ML AMPUL.NEB INHALATION ×4 (07:05→18:12)
[2021-01-12 07:10] LABS: AST(SGOT) 14 U/L (15-37); Alanine Aminotransfer ALT/SGPT 9 U/L (13-56); Albumin, Serum 2.8 g/dL (3.2-5.0); Alkaline Phosphatase 128 U/L (45-117); Anion Gap -1 (5-15); BUN 15 mg/dL (7-18); BUN/Creat Ratio 18.9 RATIO (10-20); Calcium,Total 8.8 mg/dL (8.5-10.1); Chloride 98 mmol/L (98-107); Creatinine, Serum 0.79 mg/dL (0.55-1.02); EST Glomerular Filtration Rate 75 mL/min (>60); Est Glom Filt Rate - Afr Amer 91 mL/min (>60); Estimated Creatinine Clearance 31.17 ml/min; Globulin 2.9 g/dL (2.2-4.2); Glucose 130 mg/dL (74-106); Potassium 4.6 mmol/L (3.5-5.1); Protein, Total 5.7 g/dL (6.4-8.2); Sodium Level 130 mmol/L (136-145)
[2021-01-12 07:15] LABS: Differential Comment SCANNED
--- NOTE | 2021-01-12 09:11 | PN_ITS ---
<Lorraine Mckinley - Last Filed: 01/12/21 09:11> Patient Problems: Active and Suspected Problems (Last Reviewed 01/11/21 @ 18:13 by Lorraine Mckinley, INFORMATICS COORDINATOR-C) COPD with acute exacerbation (Acute) Subjective: Patient seen and examined. Patient reports feeling less short of breath and wheezy today. Upon entering patient room she is sitting in her bed no distress noted. She is 92% on 2 L nasal cannula oxygen. Vitals/I&O's: Vital Signs Temp Pulse Resp BP Pulse Ox 97.7 F L 77 18 127/57 H 92 01/12/21 03:28 01/12/21 07:10 01/12/21 07:10 01/12/21 03:28 01/12/21 07:10 Oxygen Flow Rate (L/min) 2 Oxygen Delivery Method Nasal Cannula Weight: 88 lb 2.958 oz Body Mass Index (BMI) 14.6 Intake and Output for Last 24 Hours 01/10/21 01/11/21 01/12/21 23:59 23:59 23:59 Intake Total 455 / 455 200 / 200 Output Total 300 / 300 400 / 400 Balance 155 / 155 -200 / -200 General: Alert, Oriented x3, Cooperative HEENT: Atraumatic, PERRLA, EOMI, Normocephalic Neck: Supple, No JVD, Negative Carotid Bruits Lungs: Short of Breath - With exertion, Wheezes Cardiovascular: Regular rate, Regular Rhythm, Normal S1, Normal S2, No murmurs Abdomen: Bowel Sounds Present, Soft, Non Tender Extremities: No edema, Capillary Refill Less than 3 Seconds Skin: No rashes, No breakdown Musculoskeletal: No Tenderness to Palpation of Joints or Extremities Neurological: Cranial nerves II-XII grossly intact Psych/Mental Status: Normal Affect, Appropriate Microbiology Past 72 Hours 01/11/21 18:00 Mucosa - Nasopharyngeal Respiratory Panel (PCR) - Final 01/11/21 16:45 Mucosa - Nose SARS-CoV-2 Antigen (Rapid) - Final Laboratory Results 01/11/21 16:35: WBC 7.2, RBC 4.05 L, Hgb 12.8, Hct 40.1, MCV 99.0, MCH 31.6, MCHC 31.9 L, RDW Std Deviation 47.1 H, RDW Coeff of Ashu 12.8, Plt Count 278, MPV 9.8, Immature Gran % (Auto) 0.100, Neut % (Auto) 55.3, Lymph % (Auto) 16.2 L, Ada % (Auto) 7.8, Eos % (Auto) 19.8 H, Baso % (Auto) 0.8, Absolute Neuts (auto) 4.0, Absolute Lymphs (auto) 1.16, Nucleated RBC % 0 01/11/21 16:35: Sodium 129 L, Potassium 4.3, Chloride 97 L, Carbon Dioxide 28.0, Anion Gap 4 L, BUN 14, Creatinine 0.88, Estim Creat Clear Calc 35.42, Est GFR (MDRD) Af Amer 81, Est GFR (MDRD) Non-Af 67, BUN/Creatinine Ratio 15.9, Glucose 86, Calcium 8.8, Troponin I < 0.015 01/11/21 16:35: B-Natriuretic Peptide 74.8 01/11/21 16:43: Lactic Acid 1.1 01/11/21 22:18: Urine Color Yellow, Urine Clarity Clear, Urine pH 6.0, Ur Specific [place] 1.020, Urine Protein Negative, Urine Glucose (UA) 50 H, Urine Ketones Negative, Urine Occult Blood 25 H, Urine Nitrite Positive H, Urine Bilirubin Negative, Urine Urobilinogen Normal, Ur Leukocyte Esterase 25 H, Urine RBC 0 SEEN, Urine WBC 0-5 SEEN, Ur Squamous Epith Cells 5-10 SEEN, Urine Bacteria 1+, Hyaline Casts 0-5 SEEN, Urine Mucus 0 SEEN 01/12/21 06:34: WBC 3.1 L, RBC 3.69 L, Hgb 11.8 L, Hct 35.7 L, MCV 96.7, MCH 32.0, MCHC 33.1, RDW Std Deviation 45.8 H, RDW Coeff of Ashu 12.8, Plt Count 247, MPV 9.7, Immature Gran % (Auto) 0.300, Neut % (Auto) 86.6 H, Lymph % (Auto) 12.1 L, Ada % (Auto) 1.0, Eos % (Auto) 0.0, Baso % (Auto) 0.0, Absolute Neuts (auto) 2.6, Absolute Lymphs (auto) 0.37 L, Nucleated RBC % 0, Differential Comment SCANNED, Diff Path Review February01/12/21 06:34: Sodium 130 L, Potassium 4.6, Chloride 98, Carbon Dioxide 33.0 H, Anion Gap -1 L, BUN 15, Creatinine 0.79, Estim Creat Clear Calc 31.17, Est GFR (MDRD) Af Amer 91, Est GFR (MDRD) Non-Af 75, BUN/Creatinine Ratio 18.9, Glucose 130 H, Calcium 8.8, Total Bilirubin 0.50, AST 14 L, ALT 9 L, Alkaline Phosphatase 128 H, Total Protein 5.7 L, Albumin 2.8 L, Globulin 2.9, Albumin/Globulin Ratio 1.0 Current Medications Acetaminophen (Acetaminophen 325 Mg Tablet) 650 mg PO Q6H PRN PRN PRN Reason: Pain Score 1-10/Temp > 100.7 F Al Hydroxide/Mg Hydroxide (Mag Hydrox/Al Hydrox/Simeth 30 Ml Udc) 30 ml PO Q6H PRN PRN PRN Reason: Gastric Burning Albuterol Sulfate (Albuterol 2.5 Mg/3 Ml Vial.Neb.) 2.5 mg INHALATION Q2H PRN PRN PRN Reason: SOB &/OR WHEEZING Albuterol/Ipratropium (Ipratropium/Albuterol Sulfate 3 Ml Ampul.Neb) 3 ml INHALATION Q4HWA.RT [facility] Last Admin: 01/12/21 07:05 Dose: 3 ml Documented by: Aspirin (Aspirin 81 Mg Tab.Chew) [facility] Atorvastatin Calcium (Atorvastatin Calcium 20 Mg Tablet) 20 mg PO QHS [facility] Last Admin: 01/11/21 22:00 Dose: 20 mg Documented by: Carvedilol (Carvedilol 3.125 Mg Tablet) 3.125 mg PO BID [facility] Last Admin: 01/11/21 22:00 Dose: 3.125 mg Documented by: Enoxaparin Sodium (Enoxaparin 40 Mg/0.4 Ml Syringe) 40 mg SC DAILY [facility] Gabapentin (Gabapentin 600 Mg Tablet) 600 mg PO QHS [facility] Last Admin: 01/11/21 22:00 Dose: 600 mg Documented by: Guaifenesin (Guaifenesin 10 Ml Udc (200mg/10ml)) 20 ml PO Q4H PRN PRN PRN Reason: COUGH Sodium Chloride () 250 mls @ 15 mls/hr IV .[id number] PRN PRN Reason: Saline Flush Last Admin: 01/11/21 18:27 Dose: 15 mls/hr Documented by: Sodium Chloride () 250 mls @ 15 mls/hr IV .[id number] PRN PRN Reason: Additional IVPB Infusion Azithromycin 500 mg/ Dextrose 255 mls @ 250 mls/hr IV Q24H [facility] Lisinopril (Lisinopril 5 Mg Tablet) 5 mg PO QHS [facility] Last Admin: 01/11/21 22:00 Dose: 5 mg Documented by: Methylprednisolone (Methylprednisolone 40 Mg/Ml Vial) 40 mg IV Q8 [facility] Last Admin: 01/12/21 06:20 Dose: 40 mg Documented by: Nutritional Formula (Lactose Free) (Ensure Enlive 120 Ml Liquid) 120 ml PO 4X/DAY [facility] Psyllium Hydrophilic Mucilloid (Psyllium 1 Packet) 1 packet PO DAILY PRN PRN PRN Reason: Constipation Senna/Docusate Sodium (Senna/Docusate Sodium 1 Tablet) 2 tablet PO BID PRN PRN PRN Reason: Constipation Sodium Chloride (0.9% Saline Lock 10 Ml Syringe) 10 - 40 ml IV UD PRN PRN Reason: SALINE FLUSH Last Admin: 01/12/21 06:20 Dose: 10 ml Documented by: Trazodone HCl (Trazodone 50 Mg Tablet) 50 mg PO QHS PRN PRN PRN Reason: SLEEP Last Admin: 01/11/21 22:00 Dose: 50 mg Documented by: STROKE Vital Signs/Narrative: Vital Signs Pulse Resp Pulse Ox 01/12/21 07:10 77 18 92 Medical Necessity - Tobacco Use Smoking Status: Former smoker Tobacco Use: Cigarettes Assessment/Plan All Active Problems (Last Reviewed 01/11/21 @ 18:13 by Lorraine Mckinley, INFORMATICS COORDINATOR-C) COPD with acute exacerbation (Acute) Hypoxia (Acute) Shock (Acute) JIM (acute kidney injury) (Acute) GI bleed (Acute) NSTEMI (non-ST elevated myocardial infarction) (Acute) Cardiac dysrhythmia (Acute) Cardiomyopathy (Acute) Guaiac positive stools (Acute) Acute diarrhea (Acute) 1. COPD with acute exacerbation-we will continue aerosol treatments, azithromycin, O2 per protocol for SpO2 >90%. 2. Urinary tract infection-urine positive for glucose, blood, nitrites, and leukocytes, UA pending. Hx of Klebsiella, will initiate Levofloxacin 250mg daily x3 days. 3. Hyponatremia-chronic. 4.Hypertension-continue home regimen 5. Hyperlipidemia-Continue home regimen. 6. Protein-calorie malnutrition-consult nutrition DVT prophylaxis- sc Lovenox <Griffin Marie F - Last Filed: 01/12/21 11:49> Vitals/I&O's: Vital Signs Temp Pulse Resp BP Pulse Ox 98.0 F 84 18 152/67 H 93 01/12/21 10:25 01/12/21 11:17 01/12/21 11:17 01/12/21 10:25 01/12/21 11:17 Oxygen Flow Rate (L/min) 2 Oxygen Delivery Method Nasal Cannula Weight: 88 lb 2.958 oz Body Mass Index (BMI) 14.6 Intake and Output for Last 24 Hours 01/10/21 01/11/21 01/12/21 23:59 23:59 23:59 Intake Total 455 / 455 442 / 442 Output Total 300 / 300 400 / 400 Balance 155 / 155 42 / 42 Microbiology Past 72 Hours 01/11/21 18:00 Mucosa - Nasopharyngeal Respiratory Panel (PCR) - Final 01/11/21 16:45 Mucosa - Nose SARS-CoV-2 Antigen (Rapid) - Final Laboratory Results 01/11/21 16:35: WBC 7.2, RBC 4.05 L, Hgb 12.8, Hct 40.1, MCV 99.0, MCH 31.6, MCHC 31.9 L, RDW Std Deviation 47.1 H, RDW Coeff of Ashu 12.8, Plt Count 278, MPV 9.8, Immature Gran % (Auto) 0.100, Neut % (Auto) 55.3, Lymph % (Auto) 16.2 L, Ada % (Auto) 7.8, Eos % (Auto) 19.8 H, Baso % (Auto) 0.8, Absolute Neuts (auto) 4.0, Absolute Lymphs (auto) 1.16, Nucleated RBC % 0 01/11/21 16:35: Sodium 129 L, Potassium 4.3, Chloride 97 L, Carbon Dioxide 28.0, Anion Gap 4 L, BUN 14, Creatinine 0.88, Estim Creat Clear Calc 35.42, Est GFR (MDRD) Af Amer 81, Est GFR (MDRD) Non-Af 67, BUN/Creatinine Ratio 15.9, Glucose 86, Calcium 8.8, Troponin I < 0.015 01/11/21 16:35: B-Natriuretic Peptide 74.8 01/11/21 16:43: Lactic Acid 1.1 01/11/21 22:18: Urine Color Yellow, Urine Clarity Clear, Urine pH 6.0, Ur Specific [place] 1.020, Urine Protein Negative, Urine Glucose (UA) 50 H, Urine Ketones Negative, Urine Occult Blood 25 H, Urine Nitrite Positive H, Urine Bilirubin Negative, Urine Urobilinogen Normal, Ur Leukocyte Esterase 25 H, Urine RBC 0 SEEN, Urine WBC 0-5 SEEN, Ur Squamous Epith Cells 5-10 SEEN, Urine Bacteria 1+, Hyaline Casts 0-5 SEEN, Urine Mucus 0 SEEN 01/12/21 06:34: WBC 3.1 L, RBC 3.69 L, Hgb 11.8 L, Hct 35.7 L, MCV 96.7, MCH 32.0, MCHC 33.1, RDW Std Deviation 45.8 H, RDW Coeff of Ashu 12.8, Plt Count 247, MPV 9.7, Immature Gran % (Auto) 0.300, Neut % (Auto) 86.6 H, Lymph % (Auto) 12.1 L, Ada % (Auto) 1.0, Eos % (Auto) 0.0, Baso % (Auto) 0.0, Absolute Neuts (auto) 2.6, Absolute Lymphs (auto) 0.37 L, Nucleated RBC % 0, Differential Comment SCANNED, Diff Path Review February01/12/21 06:34: Sodium 130 L, Potassium 4.6, Chloride 98, Carbon Dioxide 33.0 H, Anion Gap -1 L, BUN 15, Creatinine 0.79, Estim Creat Clear Calc 31.17, Est GFR (MDRD) Af Amer 91, Est GFR (MDRD) Non-Af 75, BUN/Creatinine Ratio 18.9, Glucose 130 H, Calcium 8.8, Total Bilirubin 0.50, AST 14 L, ALT 9 L, Alkaline Phosphatase 128 H, Total Protein 5.7 L, Albumin 2.8 L, Globulin 2.9, Albumin/Globulin Ratio 1.0 Current Medications Acetaminophen (Acetaminophen 325 Mg Tablet) 650 mg PO Q6H PRN PRN PRN Reason: Pain Score 1-10/Temp > 100.7 F Al Hydroxide/Mg Hydroxide (Mag Hydrox/Al Hydrox/Simeth 30 Ml Udc) 30 ml PO Q6H PRN PRN PRN Reason: Gastric Burning Albuterol Sulfate (Albuterol 2.5 Mg/3 Ml Vial.Neb.) 2.5 mg INHALATION Q2H PRN PRN PRN Reason: SOB &/OR WHEEZING Albuterol/Ipratropium (Ipratropium/Albuterol Sulfate 3 Ml Ampul.Neb) 3 ml INHALATION Q4HWA.RT [facility] Last Admin: 01/12/21 11:16 Dose: 3 ml Documented by: Aspirin (Aspirin 81 Mg Tab.Chew) 81 mg PO DAILYCM [facility] Last Admin: 01/12/21 10:27 Dose: 81 mg Documented by: Atorvastatin Calcium (Atorvastatin Calcium 20 Mg Tablet) 20 mg PO QHS [facility] Last Admin: 01/11/21 22:00 Dose: 20 mg Documented by: Carvedilol (Carvedilol 3.125 Mg Tablet) 3.125 mg PO BID [facility] Last Admin: 01/12/21 10:27 Dose: 3.125 mg Documented by: Enoxaparin Sodium (Enoxaparin 40 Mg/0.4 Ml Syringe) 40 mg SC DAILY [facility] Last Admin: 01/12/21 10:26 Dose: 40 mg Documented by: Gabapentin (Gabapentin 600 Mg Tablet) 600 mg PO QHS [facility] Last Admin: 01/11/21 22:00 Dose: 600 mg Documented by: Guaifenesin (Guaifenesin 10 Ml Udc (200mg/10ml)) 20 ml PO Q4H PRN PRN PRN Reason: COUGH Sodium Chloride () 250 mls @ 15 mls/hr IV .[id number] PRN PRN Reason: Saline Flush Last Infusion: 01/12/21 10:35 Dose: 0 mls/hr Documented by: Sodium Chloride () 250 mls @ 15 mls/hr IV .[id number] PRN PRN Reason: Additional IVPB Infusion Azithromycin 500 mg/ Dextrose 255 mls @ 250 mls/hr IV Q24H [facility] Levofloxacin (Levofloxacin 250 Mg Tablet) 250 mg PO DAILY@0600 [facility] Stop: 01/14/21 06:01 Last Admin: 01/12/21 10:52 Dose: 250 mg Documented by: Lisinopril (Lisinopril 5 Mg Tablet) 5 mg PO QHS [facility] Last Admin: 01/11/21 22:00 Dose: 5 mg Documented by: Methylprednisolone (Methylprednisolone 40 Mg/Ml Vial) 40 mg IV Q8 [facility] Last Admin: 01/12/21 06:20 Dose: 40 mg Documented by: Nutritional Formula (Lactose Free) (Ensure Enlive 120 Ml Liquid) 120 ml PO 4X/DAY [facility] Last Admin: 01/12/21 10:52 Dose: 120 ml Documented by: Psyllium Hydrophilic Mucilloid (Psyllium 1 Packet) 1 packet PO DAILY PRN PRN PRN Reason: Constipation Senna/Docusate Sodium (Senna/Docusate Sodium 1 Tablet) 2 tablet PO BID PRN PRN PRN Reason: Constipation Sodium Chloride (0.9% Saline Lock 10 Ml Syringe) 10 - 40 ml IV UD PRN PRN Reason: SALINE FLUSH Last Admin: 01/12/21 06:20 Dose: 10 ml Documented by: Trazodone HCl (Trazodone 50 Mg Tablet) 50 mg PO QHS PRN PRN PRN Reason: SLEEP Last Admin: 01/11/21 22:00 Dose: 50 mg Documented by: STROKE Vital Signs/Narrative: Vital Signs Temp Pulse Resp BP Pulse Ox 01/12/21 11:17 84 18 93 01/12/21 10:25 98.0 F 68 20 H 152/67 H 95 Addendum: Dr. Marie I personally examined the patient and reviewed the chart. I agree with the above. 75-year-old female with a history of COPD presents with shortness of breath secondary to a COPD exacerbation. She does not wear oxygen at home and on presentation to the ER was placed on 3 L and is down to 2 L nasal cannula. She is extremely hesitant about having any oxygen at home therefore we will continue to encourage incentive spirometry continue with steroids and breathing treatments. She is afebrile without a leukocytosis will discontinue Levaquin and azithromycin as I do not believe that there is any acute infectious process at the moment. Her UA has no urine white blood cells and some urine squames making it invalid. Inpatient E&M: 51434 Subs Hosp L2
[2021-01-12] MEDS: Enoxaparin 40 MG/0.4 ML Syringe SC (10:26)
[2021-01-12] MEDS: Aspirin 81 MG TAB.CHEW PO (10:27)
[2021-01-12] MEDS: Carvedilol 3.125 MG TABLET PO ×2 (10:27→20:45)
--- NOTE | 2021-01-12 10:40 | CASEMGMT ---
RN CM Face to Face with patient for initial transition planning/care coordination assessment. RN CM introduced self and role at [facility]. Patient lying in bed, alert and oriented. Patient willing to participate in assessment and is able to answer all questions appropriately. Care providers, pharmacy, and demographics verified. Patient wishes to discharge home, denies need for home health at this time. Patient states she has no further needs or concerns at this time. CM to follow for discharge planning needs that may arise. PCP: Kobi Specialists: [facility] Pharmacy: [facility] Insurance: [facility] [place] Prescription Benefit: yes Living Will/HPOA: yes, son Kavon Bhandari LNOK: sons Living Arrangements: Patient lives with son in a 3 story house. Patient states she is independent and able to ambulate stairs. Transportation: son DME/HHC: Patient states she has a nebulizer at home. Patient denies previous HHC. Patient has had home oxygen in the past through [employer] Disposition Plan: Patient to discharge home with family support and follow-up plans in place. Will monitor for need for home oxygen. Shira DELEON, RN, CM
[2021-01-12] MEDS: levoFLOXacin 250 MG Tablet PO (10:52)
[2021-01-12 11:39] LABS: Pathologist Review Reviewed
--- NOTE | 2021-01-12 14:49 | PCM.NTREPORT ---
Nutrition Therapy Report - History Nutrition Services has been consulted to:: Manage nutrient details of diet order Current diet / nutrition support order:: Cardiac diet. 120ml ensure enlive 4 times per day w/ medpass - Anthropometric Measurements Height:: 5 ft 5 in Weight:: 40 kg Body Mass Index (BMI):: 14.6 - Relevant Labs Relevant Labs:: WBC 3.1 K/mm3 (4.4-11.0) L 01/12/21 06:34 RBC 3.69 M/mm3 (4.2-5.4) L 01/12/21 06:34 Hgb 11.8 g/dL (12.0-15.0) L 01/12/21 06:34 Hct 35.7 % (37-47) L 01/12/21 06:34 MCHC 31.9 g/dL (32-36) L 01/11/21 16:35 RDW Std Deviation 45.8 fl (35.1-43.9) H 01/12/21 06:34 Neut % (Auto) 86.6 % (47-70) H 01/12/21 06:34 Lymph % (Auto) 12.1 % (19-41) L 01/12/21 06:34 Eos % (Auto) 19.8 % (0-5) H 01/11/21 16:35 Absolute Lymphs (auto) 0.37 X10^3/uL (0.83-4.51) L 01/12/21 06:34 Sodium 130 mmol/L (136-145) L 01/12/21 06:34 Chloride 97 mmol/L (98-107) L 01/11/21 16:35 Carbon Dioxide 33.0 mmol/L (21.0-32.0) H 01/12/21 06:34 Anion Gap -1 (5-15) L 01/12/21 06:34 Glucose 130 mg/dL (74-106) H 01/12/21 06:34 AST 14 U/L (15-37) L 01/12/21 06:34 ALT 9 U/L (13-56) L 01/12/21 06:34 Alkaline Phosphatase 128 U/L (45-117) H 01/12/21 06:34 Total Protein 5.7 g/dL (6.4-8.2) L 01/12/21 06:34 Albumin 2.8 g/dL (3.2-5.0) L 01/12/21 06:34 - Assessment Food / Nutrition-Related History:: Pt reports UBW~100-105 lbs and unaware of wt loss since she eats all of the time but, loose clothing alerted pt that she is likely decreasing wt. Calculated wt loss~15-16% x reported past 12-18 months. Pt denies any difficulty chewing/swallowing and open to ONS as needed. +NFPA with severe muscle and fat wasting in the face, upper body and clavicle areas. 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 - Nutrition Diagnosis Problem / Etiology / Signs & Symptoms (PES):: Pro/riaz malnutrition in the context of chronic disease related to increased energy expenditure/COPD as evidenced by as evidenced by BMI 14.7, wt loss~15-16% x past 12-18 months and +NFPA with fat/muscle wasting in the face, orbitals, clavicle, upper body, legs and arms. Evidence of Malnutrition Exists:: Yes Severe PCM:: Chronic Illness - Nutrition Intervention Nutrition Prescription:: Estimated nutrition needs for repletion~9771-9111 kcal (38 kcal/Kg) and ~55-65 gm protein (1.5 gm pro/Kg) per day. Estimated fluid needs~5464-6578 ml/day (~1 ml per Kcal). - Food / Nutrient Delivery Interventions Summary of nutrition intervention:: Will liberalize diet from cardiac to regular/no added salt. Will continue ensure enlive w/ medpass as ordered. Will add orange magic cup BID w/ lunch and dinner. Will try 240ml ensure clear w/ breakfast for tolerance. Will continue to monitor PO, wt, labs and follow-up. Nutrition education provided?: Yes - MNT Monitoring Further MNT monitoring and evaluation required?: Yes MNT Follow-up in:: 3-5 days
[2021-01-12] MEDS: Acetaminophen 325 MG Tablet 650 MG PO (19:50)
[2021-01-12] MEDS: Ondansetron 4 MG/2 ML Vial IV (20:44)
[2021-01-12] MEDS: traZODone 50 MG Tablet PO (20:44)
[2021-01-12] MEDS: Gabapentin 600 MG Tablet PO (20:45)
[2021-01-12] MEDS: Atorvastatin Calcium 20 MG Tablet PO (20:45)
[2021-01-12] MEDS: Lisinopril 5 MG Tablet PO (20:46)
[2021-01-13] VITALS (9 sets, daily range): BP systolic 106–144; BP diastolic 54–78; PULSE 73–88; RESP 16–22; TEMP 36.4–36.9; O2SAT 82–96
[2021-01-13] MEDS: Ipratropium/Albuterol Sulfate 3 ML AMPUL.NEB INHALATION ×4 (06:50→19:38)
[2021-01-13] MEDS: Aspirin 81 MG TAB.CHEW PO (10:29)
[2021-01-13] MEDS: Enoxaparin 40 MG/0.4 ML Syringe SC (10:29)
[2021-01-13] MEDS: Carvedilol 3.125 MG TABLET PO ×2 (10:29→21:26)
--- NOTE | 2021-01-13 13:46 | PCM.PN.HOSP ---
<Jamil Fuentes - Last Filed: 01/13/21 13:46> Patient Problems: Active and Suspected Problems (Last Reviewed 01/11/21 @ 18:13 by Lorraine Mckinley NP-C) COPD with acute exacerbation (Acute) Subjective: Patient resting in bed after ambulatory pulse ox. Patient still reports shortness of breath after mild activity. Patient also reports feeling chronically weak. Objective: Clinical Impression(s) from Imaging Studies Chest X-Ray 01/11/21 17:20 IMPRESSION: COPD. No acute cardiopulmonary pathology Electronically Signed: Matt Contreras MD at 18:05 EDT , Service support , Vitals/I&O's: Vital Signs Temp Pulse Resp BP Pulse Ox 97.7 F L 77 16 122/63 H 88 01/13/21 10:00 01/13/21 11:07 01/13/21 11:07 01/13/21 10:00 01/13/21 10:00 Oxygen Flow Rate (L/min) [ 4 AMBULATING with Oxygen #1] Oxygen Flow Rate (L/min) [At 2 REST with Oxygen] Oxygen Flow Rate (L/min) 2 Oxygen Delivery Method Nasal Cannula Weight: 88 lb 2.958 oz Body Mass Index (BMI) 14.6 Intake and Output for Last 24 Hours 01/11/21 01/12/21 01/13/21 23:59 23:59 23:59 Intake Total 455 / 455 1002 / 1302 400 / 400 Output Total 300 / 300 900 / 900 Balance 155 / 155 102 / 402 400 / 400 General: Alert, Oriented x3, Cooperative, - - Appears malnourished HEENT: Atraumatic, PERRLA, EOMI, Normocephalic Neck: Supple, No JVD, Negative Carotid Bruits Lungs: Rales, Short of Breath, Wheezes Cardiovascular: Regular rate, No murmurs Abdomen: Bowel Sounds Present, Soft, Non Tender Extremities: No edema, Capillary Refill Less than 3 Seconds Skin: No rashes, No breakdown Musculoskeletal: No Tenderness to Palpation of Joints or Extremities Neurological: Cranial nerves II-XII grossly intact Psych/Mental Status: Normal Affect, Appropriate Microbiology Past 72 Hours 01/11/21 23:44 Urine, Clean Catch Urine Culture - Preliminary Gram positive cecy 01/11/21 18:00 Mucosa - Nasopharyngeal Respiratory Panel (PCR) - Final 01/11/21 16:45 Mucosa - Nose SARS-CoV-2 Antigen (Rapid) - Final Current Medications Acetaminophen (Acetaminophen 325 Mg Tablet) 650 mg PO Q6H PRN PRN PRN Reason: Pain Score 1-10/Temp > 100.7 F Last Admin: 01/12/21 19:50 Dose: 650 mg Documented by: Al Hydroxide/Mg Hydroxide (Mag Hydrox/Al Hydrox/Simeth 30 Ml Udc) 30 ml PO Q6H PRN PRN PRN Reason: Gastric Burning Albuterol Sulfate (Albuterol 2.5 Mg/3 Ml Vial.Neb.) 2.5 mg INHALATION Q2H PRN PRN PRN Reason: SOB &/OR WHEEZING Albuterol/Ipratropium (Ipratropium/Albuterol Sulfate 3 Ml Ampul.Neb) 3 ml INHALATION Q4HWA.RT [facility] Last Admin: 01/13/21 11:07 Dose: 3 ml Documented by: Aspirin (Aspirin 81 Mg Tab.Chew) [facility] Last Admin: 01/13/21 10:29 Dose: 81 mg Documented by: Atorvastatin Calcium (Atorvastatin Calcium 20 Mg Tablet) 20 mg PO QHS [facility] Last Admin: 01/12/21 20:45 Dose: 20 mg Documented by: Carvedilol (Carvedilol 3.125 Mg Tablet) 3.125 mg PO BID [facility] Last Admin: 01/13/21 10:29 Dose: 3.125 mg Documented by: Enoxaparin Sodium (Enoxaparin 40 Mg/0.4 Ml Syringe) 40 mg SC DAILY [facility] Last Admin: 01/13/21 10:29 Dose: 40 mg Documented by: Gabapentin (Gabapentin 600 Mg Tablet) 600 mg PO QHS [facility] Last Admin: 01/12/21 20:45 Dose: 600 mg Documented by: Guaifenesin (Guaifenesin 10 Ml Udc (200mg/10ml)) 20 ml PO Q4H PRN PRN PRN Reason: COUGH Sodium Chloride () 250 mls @ 15 mls/hr IV .[id number] PRN PRN Reason: Saline Flush Last Infusion: 01/12/21 10:35 Dose: 0 mls/hr Documented by: Lisinopril (Lisinopril 5 Mg Tablet) 5 mg PO QHS [facility] Last Admin: 01/12/21 20:46 Dose: 5 mg Documented by: Methylprednisolone (Methylprednisolone 40 Mg/Ml Vial) 40 mg IV Q8 [facility] Last Admin: 01/13/21 05:18 Dose: 40 mg Documented by: Nutritional Formula (Lactose Free) (Ensure Enlive 120 Ml Liquid) 120 ml PO 4X/DAY [facility] Last Admin: 01/13/21 10:30 Dose: 120 ml Documented by: Ondansetron HCl (Ondansetron 4 Mg/2 Ml Vial) 4 mg IV Q6H PRN PRN PRN Reason: NAUSEA/VOMITING Last Admin: 01/12/21 20:44 Dose: 4 mg Documented by: Psyllium Hydrophilic Mucilloid (Psyllium 1 Packet) 1 packet PO DAILY PRN PRN PRN Reason: Constipation Senna/Docusate Sodium (Senna/Docusate Sodium 1 Tablet) 2 tablet PO BID PRN PRN PRN Reason: Constipation Sodium Chloride (0.9% Saline Lock 10 Ml Syringe) 10 - 40 ml IV UD PRN PRN Reason: SALINE FLUSH Last Admin: 01/12/21 06:20 Dose: 10 ml Documented by: Trazodone HCl (Trazodone 50 Mg Tablet) 50 mg PO QHS PRN PRN PRN Reason: SLEEP Last Admin: 01/12/21 20:44 Dose: 50 mg Documented by: STROKE Vital Signs/Narrative: Vital Signs Temp Pulse Resp BP Pulse Ox Pulse Ox Pulse Ox 01/13/21 11:07 77 16 01/13/21 10:00 97.7 F L 73 18 122/63 H 90 82 94 Pulse Ox Pulse Ox 01/13/21 11:07 01/13/21 10:00 88 95 Medical Necessity - Tobacco Use Smoking Status: Former smoker Tobacco Use: Cigarettes Assessment/Plan All Active Problems (Last Reviewed 01/11/21 @ 18:13 by Lorraine Mckinley NP-C) COPD with acute exacerbation (Acute) Hypoxia (Acute) Shock (Acute) JIM (acute kidney injury) (Acute) GI bleed (Acute) NSTEMI (non-ST elevated myocardial infarction) (Acute) Cardiac dysrhythmia (Acute) Cardiomyopathy (Acute) Guaiac positive stools (Acute) Acute diarrhea (Acute) Patient is a 75-year-old female who presented to the hospital on 01/11/2021 with a chief complaint of shortness of breath. Patient was admitted for acute on chronic hypoxic respiratory failure secondary to COPD exacerbation. Patient does not have home oxygen and is reluctant to go home with oxygen. Ambulatory pulse ox required 4 L of oxygen to remain above 92%. Ambulating on room air patient's oxygen saturation was 82%. Patient will remain admitted overnight. 1) Acute on chronic hypoxic respiratory failure secondary to COPD exacerbation Assessment - Patient does not have oxygen at home - 4 L of oxygen required to keep oxygen saturation above 92% Plan - Remain admitted overnight - Continue aerosol treatments - Recheck ambulatory pulse ox in the morning 2) Hyponatremia Assessment - Chronic - 130 on 01/12/2021 Plan -Continue to monitor 3) Hypertensin Plan -Continue home regimen 4) Hyperlipidemia Plan -Continue home regimen 5) Protein-calorie malnutrition Plan - Consult nutrition DVT Prophylaxis -SC Lovenox Patient seen by Jamil Fuentes PA-C, under the supervision of Dr. Marie. <Griffin Marie F - Last Filed: 01/13/21 17:43> Vitals/I&O's: Vital Signs Temp Pulse Resp BP Pulse Ox 97.5 F L 84 18 106/54 L 93 01/13/21 15:53 01/13/21 15:53 01/13/21 15:53 01/13/21 15:53 01/13/21 15:53 Oxygen Flow Rate (L/min) [ 4 AMBULATING with Oxygen #1] Oxygen Flow Rate (L/min) [At 2 REST with Oxygen] Oxygen Flow Rate (L/min) 2 Oxygen Delivery Method Nasal Cannula Weight: 88 lb 2.958 oz Body Mass Index (BMI) 14.6 Intake and Output for Last 24 Hours 01/11/21 01/12/21 01/13/21 23:59 23:59 23:59 Intake Total 455 / 455 1002 / 1302 600 / 600 Output Total 300 / 300 900 / 900 400 / 400 Balance 155 / 155 102 / 402 200 / 200 Microbiology Past 72 Hours 01/11/21 23:44 Urine, Clean Catch Urine Culture - Preliminary Gram positive cecy 01/11/21 18:00 Mucosa - Nasopharyngeal Respiratory Panel (PCR) - Final 01/11/21 16:45 Mucosa - Nose SARS-CoV-2 Antigen (Rapid) - Final Current Medications Acetaminophen (Acetaminophen 325 Mg Tablet) 650 mg PO Q6H PRN PRN PRN Reason: Pain Score 1-10/Temp > 100.7 F Last Admin: 01/13/21 16:28 Dose: 650 mg Documented by: Al Hydroxide/Mg Hydroxide (Mag Hydrox/Al Hydrox/Simeth 30 Ml Udc) 30 ml PO Q6H PRN PRN PRN Reason: Gastric Burning Albuterol Sulfate (Albuterol 2.5 Mg/3 Ml Vial.Neb.) 2.5 mg INHALATION Q2H PRN PRN PRN Reason: SOB &/OR WHEEZING Albuterol/Ipratropium (Ipratropium/Albuterol Sulfate 3 Ml Ampul.Neb) 3 ml INHALATION Q4HWA.RT [facility] Last Admin: 01/13/21 15:07 Dose: 3 ml Documented by: Aspirin (Aspirin 81 Mg Tab.Chew) 81 mg PO DAILYCM [facility] Last Admin: 01/13/21 10:29 Dose: 81 mg Documented by: Atorvastatin Calcium (Atorvastatin Calcium 20 Mg Tablet) 20 mg PO QHS [facility] Last Admin: 01/12/21 20:45 Dose: 20 mg Documented by: Carvedilol (Carvedilol 3.125 Mg Tablet) 3.125 mg PO BID [facility] Last Admin: 01/13/21 10:29 Dose: 3.125 mg Documented by: Enoxaparin Sodium (Enoxaparin 40 Mg/0.4 Ml Syringe) 40 mg SC DAILY [facility] Last Admin: 01/13/21 10:29 Dose: 40 mg Documented by: Gabapentin (Gabapentin 600 Mg Tablet) 600 mg PO QHS [facility] Last Admin: 01/12/21 20:45 Dose: 600 mg Documented by: Guaifenesin (Guaifenesin 10 Ml Udc (200mg/10ml)) 20 ml PO Q4H PRN PRN PRN Reason: COUGH Sodium Chloride () 250 mls @ 15 mls/hr IV .[id number] PRN PRN Reason: Saline Flush Last Infusion: 01/12/21 10:35 Dose: 0 mls/hr Documented by: Lisinopril (Lisinopril 5 Mg Tablet) 5 mg PO QHS [facility] Last Admin: 01/12/21 20:46 Dose: 5 mg Documented by: Methylprednisolone (Methylprednisolone 40 Mg/Ml Vial) 40 mg IV Q8 [facility] Last Admin: 01/13/21 15:48 Dose: 40 mg Documented by: Nutritional Formula (Lactose Free) (Ensure Enlive 120 Ml Liquid) 120 ml PO 4X/DAY [facility] Last Admin: 01/13/21 15:32 Dose: Not Given Documented by: Ondansetron HCl (Ondansetron 4 Mg/2 Ml Vial) 4 mg IV Q6H PRN PRN PRN Reason: NAUSEA/VOMITING Last Admin: 01/12/21 20:44 Dose: 4 mg Documented by: Psyllium Hydrophilic Mucilloid (Psyllium 1 Packet) 1 packet PO DAILY PRN PRN PRN Reason: Constipation Senna/Docusate Sodium (Senna/Docusate Sodium 1 Tablet) 2 tablet PO BID PRN PRN PRN Reason: Constipation Sodium Chloride (0.9% Saline Lock 10 Ml Syringe) 10 - 40 ml IV UD PRN PRN Reason: SALINE FLUSH Last Admin: 01/13/21 15:49 Dose: 10 ml Documented by: Trazodone HCl (Trazodone 50 Mg Tablet) 50 mg PO QHS PRN PRN PRN Reason: SLEEP Last Admin: 01/12/21 20:44 Dose: 50 mg Documented by: STROKE Vital Signs/Narrative: Vital Signs Temp Pulse Resp BP Pulse Ox 01/13/21 15:53 97.5 F L 84 18 106/54 L 93 01/13/21 15:07 78 20 H Addendum: Dr. Marie I personally examined the patient and reviewed the chart. I agree with the above. 75-year-old female with a history of COPD presents with shortness of breath secondary to a COPD exacerbation. She does not wear oxygen at home and on presentation to the ER was placed on 3 L and is down to 2 L nasal cannula. She is extremely hesitant about having any oxygen at home therefore we will continue to encourage incentive spirometry continue with steroids and breathing treatments. She is afebrile without a leukocytosis will discontinue Levaquin and azithromycin as I do not believe that there is any acute infectious process at the moment. Her UA has no urine white blood cells and some urine squames making it invalid. 01/13/2021: Doing well today, still requiring oxygen but she did initially want to try to go home so we did an ambulatory pulse ox and she was requiring a little over 4 L to maintain her oxygen sats above 94%. She will need 2 L at rest however she is willing to stay 1 more day to continue with steroids and breathing treatments. Inpatient E&M: [id number] Subs Hosp L2
[2021-01-13] MEDS: 0.9% Saline Lock 10 ML Syringe IV ×2 (15:49→21:29)
[2021-01-13] MEDS: Acetaminophen 325 MG Tablet 650 MG PO (16:28)
[2021-01-13] MEDS: guaiFENesin 10 ML UDC (200MG/10ML) 20 ML PO (20:43)
[2021-01-13] MEDS: Gabapentin 600 MG Tablet PO (21:28)
[2021-01-13] MEDS: Atorvastatin Calcium 20 MG Tablet PO (21:28)
[2021-01-13] MEDS: Lisinopril 5 MG Tablet PO (21:29)
[2021-01-13] MEDS: traZODone 50 MG Tablet PO (21:34)
[2021-01-14] VITALS (9 sets, daily range): BP systolic 135–146; BP diastolic 59–91; PULSE 66–85; RESP 16–20; TEMP 36.5–36.7; O2SAT 85–98
[2021-01-14] MEDS: 0.9% Saline Lock 10 ML Syringe IV (06:21)
[2021-01-14 06:39] LABS: Absolute Lymphocyte Count 0.36 X10^3/uL (0.83-4.51); Absolute Neutrophil Count 7.5 X10^3/uL (2.0-7.7); Basophil# 0.01 X10^3/uL; Basophil% 0.1 % (0-1); Hematocrit 34.2 % (37-47); Lymphocyte # 0.36 X10^3/ul (4.0); Lymphocyte % 4.4 % (19-41); Mean Corp Hgb Conc 32.2 g/dL (32-36); Mean Corpuscular Hgb 31.2 pg (27.0-32.0); Mean Corpuscular Volume 96.9 fL (81-99); Mean Platelet Vol. 9.6 fl (6.2-12.0); Monocyte# 0.29 X10^3/uL; Monocyte% 3.5 % (0-10); NRBC Flagged by Analyzer 0 % (0-5); Neutrophil # 7.46 X10^3/uL (2.7-7.7); POSITIVE DIFFERENTIAL YES; Platelet Count 263 K/mm3 (150-450); RBC Distribution Width CV 13.1 % (11.6-14.6); RBC Distribution Width SD 46.5 fl (35.1-43.9); Red Blood Count 3.53 M/mm3 (4.2-5.4); White Blood Count 8.2 K/mm3 (4.4-11.0)
[2021-01-14 06:44] LABS: Differential Indicated SCAN CRITERIA MET
[2021-01-14 06:57] LABS: Differential Comment SCANNED
[2021-01-14 06:58] LABS: Acanthocytes RARE
[2021-01-14] MEDS: Ipratropium/Albuterol Sulfate 3 ML AMPUL.NEB INHALATION ×2 (07:07→12:08)
[2021-01-14 07:16] LABS: Anion Gap 4 (5-15); BUN 27 mg/dL (7-18); Calcium,Total 8.6 mg/dL (8.5-10.1); Chloride 95 mmol/L (98-107); Creatinine, Serum 0.82 mg/dL (0.55-1.02); EST Glomerular Filtration Rate 72 mL/min (>60); Est Glom Filt Rate - Afr Amer 88 mL/min (>60); Estimated Creatinine Clearance 38.01 ml/min; Glucose 107 mg/dL (74-106); Sodium Level 132 mmol/L (136-145)
[2021-01-14] MEDS: Aspirin 81 MG TAB.CHEW PO (09:51)
[2021-01-14] MEDS: Enoxaparin 40 MG/0.4 ML Syringe SC (09:52)
[2021-01-14] MEDS: Carvedilol 3.125 MG TABLET PO (09:56)
--- NOTE | 2021-01-14 10:00 | DCINST_ITS ---
- Discharge Diagnoses Current Active Problems: Current Active and Chronic Problems (Last Reviewed 01/11/21 @ 18:13 by Lorraine Mckinley NP-C) COPD with acute exacerbation (Acute) Hypertension (Chronic) Protein calorie malnutrition (Chronic) HLD (hyperlipidemia) (Chronic) You will use the following diet at home:: Other - Diet changed from Cardiac to no salt added per nutrition consult. See below for caloric needs. -Nutrition Prescription:: Estimated nutrition needs for repletion~2308-9832 kcal (38 kcal/Kg) and ~55-65 gm protein (1.5 gm pro/Kg) per day. Estimated fluid needs~4151-7582 ml/day (~1 ml per Kcal). Your food should be the consistency of: Regular - Diet changed from - Nu trition Intervention Nutrition Prescription:: Estimated nutrition needs for repletion~2467-9201 kcal (38 kcal/Kg) and ~55-65 gm protein (1.5 gm pro/Kg) per day. Estimated fluid needs~5658-9828 ml/day (~1 ml per Kcal). Your liquids should be the consistency of: Regular/Thin Discharge Activity: Return to Normal Activity, - - Utilize oxygen to perform activities of daily living Allergies/Adverse Reactions: Allergies Sulfa (Sulfonamide Antibiotics) Allergy (Verified 06/27/20 10:34) FACE GETS RED AND ITCHY codeine Adverse Reaction (Verified 06/27/20 10:34) Nausea Medications to take at Discharge Albuterol Sulfate [Ventolin Hfa] 1 - 2 puff INHALATION Q4H PRN 11/26/17 Gabapentin [Neurontin] 600 mg PO QHS 11/26/17 Albuterol Aerosols [Ventolin Aerosols] 2.5 mg INHALATION Q2H PRN PRN #1 box 11/28/17 Fluticasone/Umeclidin/Vilanter [Trelegy Ellipta 100-62.5-25] 1 puff IH DAILY 10/16/18 Trazodone HCl 50 mg PO QHS PRN PRN 10/30/19 Atorvastatin Calcium 20 mg PO QHS 06/27/20 Carvedilol 3.125 mg PO BID 06/27/20 Aspirin 81 mg PO DAILY 01/11/21 Lisinopril 5 mg PO QHS 01/11/21 predniSONE tablet See Taper PO DAILY 14 Days #15 tab 01/14/21 The following prescriptions were given: predniSONE tablet See Taper PO DAILY 14 Days #15 tab Transmission Status: Received by [id number] Primary Care Physician: Matt Peace MD [Primary Care Provider] - Please follow up with your Primary Care Physician in: Within the next 2 weeks Test Results: Test results from this visit will be discussed in further detail at your follow- up appointment, if applicable. Proposed Discharge Date: 01/14/21
--- NOTE | 2021-01-14 10:05 | CASEMGMT ---
BHUMI PEDRO updated that patient qualifies for home oxygen at discharge. BHUMI PEDRO in to discuss DME options for patient. Patient was provided a list of DME providers consistent with the patient?s preferred geographic region, medical needs, and insurance network. Patient states her preferred provider is [facility]. [facility]UMI PEDRO received script for home oxygen. BHUMI PEDRO sent referral to [facility] and arranged for portable tank to be delivered prior to discharge. Patient denied HHC at discharge.
--- NOTE | 2021-01-14 10:50 | DS.PCM_ITS ---
<Jamil Fuentes - Last Filed: 01/14/21 10:50> Discharge Date and Diagnosis - Problem List Patient Problems: Active and Suspected Problems (Last Reviewed 01/11/21 @ 18:13 by Lorraine Mckinley NP-Johan) COPD with acute exacerbation (Acute) Date of Admission: 01/11/21 Date of Discharge: 01/14/21 - Primary Discharge Diagnosis Acute Problems: Active Problems (Last Reviewed 01/11/21 @ 18:13 by CULLEN Santos) COPD with acute exacerbation (Acute) - Secondary Discharge Diagnosis Chronic Problems: Chronic Problems (Last Reviewed 01/11/21 @ 18:13 by CULLEN Santos) Hypertension (Chronic) Protein calorie malnutrition (Chronic) Neurogenic bowel (Chronic) Neurogenic bladder (Chronic) HLD (hyperlipidemia) (Chronic) Hospital Course and Treatment Imaging Results: Clinical Impression(s) from Imaging Studies Chest X-Ray 01/11/21 17:20 IMPRESSION: COPD. No acute cardiopulmonary pathology Electronically Signed: Matt Contreras MD at 18:05 EDT , Service support , Microbiology 01/11/21 16:35 Blood Culture (Wb) #2 - Anticubital Left Blood Culture - Preliminary No growth in 48 hours. 01/11/21 16:43 Blood Culture (Wb) - Anticubital Right Blood Culture - Preliminary No growth in 48 hours. 01/11/21 23:44 Urine, Clean Catch Urine Culture - Final Corynebacterium minutissimum 01/11/21 18:00 Mucosa - Nasopharyngeal Respiratory Panel (PCR) - Final 01/11/21 16:45 Mucosa - Nose SARS-CoV-2 Antigen (Rapid) - Final Operations: None Summary of Care Provided: Patient is a 75-year-old female who presented to the hospital on 01/11/2021 with a chief complaint of shortness of breath. Patient was admitted for acute on chronic hypoxic respiratory failure secondary to COPD exacerbation. Patient does not have home oxygen was initially reluctant to go home with oxygen. Patient decided to go home with oxygen to help expedite discharge. Ambulatory pulse ox was 93% on 2 L. Resting pulse ox was 98% on 2 L. Patient does qualify for home oxygen and will go home with prescription for O2 at 2 L/min. Patient reports feeling better, still does endorse shortness of breath after activity and generalized weakness. I do believe that the shortness of breath will improve with prednisone taper and home oxygen. Improvement of her generalized weakness will be dependent on her compliance with nutrition recommendation. Patient has already received influenza vaccine and plans to receive Covid vaccine. No acute cardiopulmonary pathology identified on chest x-ray. Urine culture did grow corynebacterium, patient is afebrile and does not have a leukocytosis. I do not believe there is any acute infectious process. 1) Acute on chronic hypoxic respiratory failure secondary to COPD exacerbation Assessment - Ambulatory pulse ox 93% on 2 L/min - Resting pulse ox 98% on 2 L/min - Vital signs stable - Chest x-ray unremarkable - CBC and BMP unremarkable Plan - Home oxygen ordered - Prednisone taper ordered - Discharge today 2) Hyponatremia Assessment - Chronic - 132 on 01/14/2021 Plan -Follow-up with primary care provider 3) Hypertension Assessment -135/59, stable Plan - Continue with outpatient management 4) Hyperlipidemia Plan -Continue home regimen 5) Protein-calorie malnutrition Assessment - Weight 88 pounds - BMI 14.6 - Nutrition consult completed Plan - Cardiac diet removed, reduce salt intake at home - Instructions for home nutrition included in discharge instructions - Follow-up with primary care provider within the next 2 weeks DVT Prophylaxis -SC Lovenox Patient seen by Jamil Fuentes PA-C, under the supervision of Dr. Marie. Patient Problems: Active and Suspected Problems (Last Reviewed 01/11/21 @ 18:13 by Lorraine Mckinley NP-C) COPD with acute exacerbation (Acute) Subjective: 75-year-old female resting comfortably in bed, alert and oriented x3. Patient does report feeling better from admission, however still gets short of breath with activity and endorses weakness. Denies fever, chills, N/V/D. Objective: Clinical Impression(s) from Imaging Studies Chest X-Ray 01/11/21 17:20 IMPRESSION: COPD. No acute cardiopulmonary pathology Electronically Signed: Matt Contreras MD at 18:05 EDT , Service support , Microbiology 01/11/21 16:35 Blood Culture (Wb) #2 - Anticubital Left Blood Culture - Preliminary No growth in 48 hours. 01/11/21 16:43 Blood Culture (Wb) - Anticubital Right Blood Culture - Prel iminary No growth in 48 hours. 01/11/21 23:44 Urine, Clean Catch Urine Culture - Final Corynebacterium minutissimum 01/11/21 18:00 Mucosa - Nasopharyngeal Respiratory Panel (PCR) - Final 01/11/21 16:45 Mucosa - Nose SARS-CoV-2 Antigen (Rapid) - Final - Physical Exam Vitals/I&O's: Vital Signs Temp Pulse Resp BP Pulse Ox 98.0 F 75 20 H 135/59 H 85 01/14/21 08:30 01/14/21 08:33 01/14/21 08:30 01/14/21 08:30 01/14/21 09:53 Oxygen Flow Rate (L/min) [ 2 AMBULATING with Oxygen #1] Oxygen Flow Rate (L/min) [At 2 REST with Oxygen] Oxygen Flow Rate (L/min) 2 Oxygen Delivery Method Nasal Cannula Weight: 88 lb 2.958 oz Body Mass Index (BMI) 14.6 Intake and Output for Last 24 Hours 01/12/21 01/13/21 01/14/21 23:59 23:59 23:59 Intake Total 1002 / 1302 1000 / 1000 0 / 0 Output Total 900 / 900 400 / 400 Balance 102 / 402 600 / 600 0 / 0 General: Alert, Oriented x3, Cooperative, - - Underdeveloped and unernourished HEENT: Atraumatic, PERRLA, EOMI, Normocephalic Neck: Supple, No JVD, Negative Carotid Bruits Lungs: Rhonchi, Short of Breath, Wheezes Cardiovascular: Regular rate, No murmurs Abdomen: Bowel Sounds Present, Soft, Non Tender Extremities: No edema, Capillary Refill Less than 3 Seconds Skin: No rashes, No breakdown Musculoskeletal: No Tenderness to Palpation of Joints or Extremities, Cachexia, Muscle Wasting Neurological: Cranial nerves II-XII grossly intact Psych/Mental Status: Normal Affect, Appropriate Microbiology Past 72 Hours 01/11/21 16:35 Blood Culture (Wb) #2 - Anticubital Left Blood Culture - Preliminary No growth in 48 hours. 01/11/21 16:43 Blood Culture (Wb) - Anticubital Right Blood Culture - Preliminary No growth in 48 hours. 01/11/21 23:44 Urine, Clean Catch Urine Culture - Final Corynebacterium minutissimum 01/11/21 18:00 Mucosa - Nasopharyngeal Respiratory Panel (PCR) - Final 01/11/21 16:45 Mucosa - Nose SARS-CoV-2 Antigen (Rapid) - Final Laboratory Results 01/14/21 06:20: WBC 8.2, RBC 3.53 L, Hgb 11.0 L, Hct 34.2 L, MCV 96.9, MCH 31.2, MCHC 32.2, RDW Std Deviation 46.5 H, RDW Coeff of Ashu 13.1, Plt Count 263, MPV 9.6, Immature Gran % (Auto) 1.000 H, Neut % (Auto) 91.0 H, Lymph % (Auto) 4.4 L, [place] % (Auto) 3.5, Eos % (Auto) 0.0, Baso % (Auto) 0.1, Absolute Neuts (auto) 7.5, Absolute Lymphs (auto) 0.36 L, Nucleated RBC % 0, Differential Comment SCANNED, Acanthocytes (Spur) RARE 01/14/21 06:20: Sodium 132 L, Potassium 5.0, Chloride 95 L, Carbon Dioxide 33.0 H, Anion Gap 4 L, BUN 27 H, Creatinine 0.82, Estim Creat Clear Calc 38.01, Est GFR (MDRD) Af Amer 88, Est GFR (MDRD) Non-Af 72, BUN/Creatinine Ratio 33.0 H, Glucose 107 H, Calcium 8.6 Current Medications Acetaminophen (Acetaminophen 325 Mg Tablet) 650 mg PO Q6H PRN PRN PRN Reason: Pain Score 1-10/Temp > 100.7 F Last Admin: 01/13/21 16:28 Dose: 650 mg Documented by: Al Hydroxide/Mg Hydroxide (Mag Hydrox/Al Hydrox/Simeth 30 Ml Udc) 30 ml PO Q6H PRN PRN PRN Reason: Gastric Burning Albuterol Sulfate (Albuterol 2.5 Mg/3 Ml Vial.Neb.) 2.5 mg INHALATION Q2H PRN PRN PRN Reason: SOB &/OR WHEEZING Albuterol/Ipratropium (Ipratropium/Albuterol Sulfate 3 Ml Ampul.Neb) 3 ml INHALATION Q4HWA.RT [facility] Last Admin: 01/14/21 07:07 Dose: 3 ml Documented by: Aspirin (Aspirin 81 Mg Tab.Chew) 81 mg PO DAILYCM [facility] Last Admin: 01/14/21 09:51 Dose: 81 mg Documented by: Atorvastatin Calcium (Atorvastatin Calcium 20 Mg Tablet) 20 mg PO QHS [facility] Last Admin: 01/13/21 21:28 Dose: 20 mg Documented by: Carvedilol (Carvedilol 3.125 Mg Tablet) 3.125 mg PO BID [facility] Last Admin: 01/14/21 09:56 Dose: 3.125 mg Documented by: Enoxaparin Sodium (Enoxaparin 40 Mg/0.4 Ml Syringe) 40 mg SC DAILY [facility] Last Admin: 01/14/21 09:52 Dose: 40 mg Documented by: Gabapentin (Gabapentin 600 Mg Tablet) 600 mg PO QHS [facility] Last Admin: 01/13/21 21:28 Dose: 600 mg Documented by: Guaifenesin (Guaifenesin 10 Ml Udc (200mg/10ml)) 20 ml PO Q4H PRN PRN PRN Reason: COUGH Last Admin: 01/13/21 20:43 Dose: 20 ml Documented by: Sodium Chloride () 250 mls @ 15 mls/hr IV .[id number] PRN PRN Reason: Saline Flush Last Infusion: 01/14/21 00:24 Dose: Infused Documented by: Lisinopril (Lisinopril 5 Mg Tablet) 5 mg PO QHS [facility] Last Admin: 01/13/21 21:29 Dose: 5 mg Documented by: Methylprednisolone (Methylprednisolone 40 Mg/Ml Vial) 40 mg IV Q8 [facility] Last Admin: 01/14/21 06:21 Dose: 40 mg Documented by: Nutritional Formula (Lactose Free) (Ensure Enlive 120 Ml Liquid) 120 ml PO 4X/DAY [facility] Last Admin: 01/14/21 09:56 Dose: 120 ml Documented by: Ondansetron HCl (Ondansetron 4 Mg/2 Ml Vial) 4 mg IV Q6H PRN PRN PRN Reason: NAUSEA/VOMITING Last Admin: 01/12/21 20:44 Dose: 4 mg Documented by: Psyllium Hydrophilic Mucilloid (Psyllium 1 Packet) 1 packet PO DAILY PRN PRN PRN Reason: Constipation Senna/Docusate Sodium (Senna/Docusate Sodium 1 Tablet) 2 tablet PO BID PRN PRN PRN Reason: Constipation Sodium Chloride (0.9% Saline Lock 10 Ml Syringe) 10 - 40 ml IV UD PRN PRN Reason: SALINE FLUSH Last Admin: 01/14/21 06:21 Dose: 10 ml Documented by: Trazodone HCl (Trazodone 50 Mg Tablet) 50 mg PO QHS PRN PRN PRN Reason: SLEEP Last Admin: 01/13/21 21:34 Dose: 50 mg Documented by: Discharge Activity: Return to Normal Activity, - - Utilize oxygen to perform activities of daily living Home Medications: Medications to take at Discharge Albuterol Sulfate [Ventolin Hfa] 1 - 2 puff INHALATION Q4H PRN 11/26/17 Gabapentin [Neurontin] 600 mg PO QHS 11/26/17 Albuterol Aerosols [Ventolin Aerosols] 2.5 mg INHALATION Q2H PRN PRN #1 box 11/28/17 Fluticasone/Umeclidin/Vilanter [Trelegy Ellipta 100-62.5-25] 1 puff IH DAILY 10/16/18 Trazodone HCl 50 mg PO QHS PRN PRN 10/30/19 Atorvastatin Calcium 20 mg PO QHS 06/27/20 Carvedilol 3.125 mg PO BID 06/27/20 Aspirin 81 mg PO DAILY 01/11/21 Lisinopril 5 mg PO QHS 01/11/21 predniSONE tablet See Taper PO DAILY 14 Days #15 tab 01/14/21 Following Prescriptions Were Given to Patient: predniSONE tablet See Taper PO DAILY 14 Days #15 tab Transmission Status: Received by [id number] Primary Care Physician: Matt Peace MD [Primary Care Provider] - Please follow up with your Primary Care Physician in: Within the next 2 weeks Please Follow Up With: Matt Peace MD When: 2 weeks Please Follow Up With: Karthik Soto MD When: 2 weeks Medical Necessity - Tobacco Use Smoking Status: Former smoker Tobacco Use: Cigarettes Meaningful Use Info Meaningful Use Diagnoses (Choose all that apply): None applicable <Griffin Marie - Last Filed: 01/14/21 11:58> Discharge Date and Diagnosis - Primary Discharge Diagnosis Acute Problems: Active Problems (Last Reviewed 01/11/21 @ 18:13 by Lorraine Mckinley NP-C) COPD with acute exacerbation (Acute) - Secondary Discharge Diagnosis Chronic Problems: Chronic Problems (Last Reviewed 01/11/21 @ 18:13 by Lorraine Mckinley NP-C) Hypertension (Chronic) Protein calorie malnutrition (Chronic) Neurogenic bowel (Chronic) Neurogenic bladder (Chronic) HLD (hyperlipidemia) (Chronic) Hospital Course and Treatment Summary of Care Provided: The patient is a 75 year old F [] - Physical Exam Vitals/I&O's: Vital Signs Temp Pulse Resp BP Pulse Ox 98.0 F 75 20 H 135/59 H 85 01/14/21 08:30 01/14/21 08:33 01/14/21 08:30 01/14/21 08:30 01/14/21 09:53 Oxygen Flow Rate (L/min) [ 2 AMBULATING with Oxygen #1] Oxygen Flow Rate (L/min) [At 2 REST with Oxygen] Oxygen Flow Rate (L/min) 2 Oxygen Delivery Method Nasal Cannula Weight: 88 lb 2.958 oz Body Mass Index (BMI) 14.6 Intake and Output for Last 24 Hours 01/12/21 01/13/21 01/14/21 23:59 23:59 23:59 Intake Total 1002 / 1302 1000 / 1000 0 / 0 Output Total 900 / 900 400 / 400 Balance 102 / 402 600 / 600 0 / 0 Microbiology Past 72 Hours 01/11/21 16:35 Blood Culture (Wb) #2 - Anticubital Left Blood Culture - Preliminary No growth in 48 hours. 01/11/21 16:43 Blood Culture (Wb) - Anticubital Right Blood Culture - Preliminary No growth in 48 hours. 01/11/21 23:44 Urine, Clean Catch Urine Culture - Final Corynebacterium minutissimum 01/11/21 18:00 Mucosa - Nasopharyngeal Respiratory Panel (PCR) - Final 01/11/21 16:45 Mucosa - Nose SARS-CoV-2 Antigen (Rapid) - Final Laboratory Results 01/14/21 06:20: WBC 8.2, RBC 3.53 L, Hgb 11.0 L, Hct 34.2 L, MCV 96.9, MCH 31.2, MCHC 32.2, RDW Std Deviation 46.5 H, RDW Coeff of Asuh 13.1, Plt Count 263, MPV 9.6, Immature Gran % (Auto) 1.000 H, Neut % (Auto) 91.0 H, Lymph % (Auto) 4.4 L, [place] % (Auto) 3.5, Eos % (Auto) 0.0, Baso % (Auto) 0.1, Absolute Neuts (auto) 7.5, Absolute Lymphs (auto) 0.36 L, Nucleated RBC % 0, Differential Comment SCANNED, Acanthocytes (Spur) RARE 01/14/21 06:20: Sodium 132 L, Potassium 5.0, Chloride 95 L, Carbon Dioxide 33.0 H, Anion Gap 4 L, BUN 27 H, Creatinine 0.82, Estim Creat Clear Calc 38.01, Est GFR (MDRD) Af Amer 88, Est GFR (MDRD) Non-Af 72, BUN/Creatinine Ratio 33.0 H, Glucose 107 H, Calcium 8.6 Current Medications Acetaminophen (Acetaminophen 325 Mg Tablet) 650 mg PO Q6H PRN PRN PRN Reason: Pain Score 1-10/Temp > 100.7 F Last Admin: 01/13/21 16:28 Dose: 650 mg Documented by: Al Hydroxide/Mg Hydroxide (Mag Hydrox/Al Hydrox/Simeth 30 Ml Udc) 30 ml PO Q6H PRN PRN PRN Reason: Gastric Burning Albuterol Sulfate (Albuterol 2.5 Mg/3 Ml Vial.Neb.) 2.5 mg INHALATION Q2H PRN PRN PRN Reason: SOB &/OR WHEEZING Albuterol/Ipratropium (Ipratropium/Albuterol Sulfate 3 Ml Ampul.Neb) 3 ml INHALATION Q4HWA.RT [facility] Last Admin: 01/14/21 07:07 Dose: 3 ml Documented by: Aspirin (Aspirin 81 Mg Tab.Chew) 81 mg PO DAILYCM [facility] Last Admin: 01/14/21 09:51 Dose: 81 mg Documented by: Atorvastatin Calcium (Atorvastatin Calcium 20 Mg Tablet) 20 mg PO QHS [facility] Last Admin: 01/13/21 21:28 Dose: 20 mg Documented by: Carvedilol (Carvedilol 3.125 Mg Tablet) 3.125 mg PO BID [facility] Last Admin: 01/14/21 09:56 Dose: 3.125 mg Documented by: Enoxaparin Sodium (Enoxaparin 40 Mg/0.4 Ml Syringe) 40 mg SC DAILY [facility] Last Admin: 01/14/21 09:52 Dose: 40 mg Documented by: Gabapentin (Gabapentin 600 Mg Tablet) 600 mg PO QHS [facility] Last Admin: 01/13/21 21:28 Dose: 600 mg Documented by: Guaifenesin (Guaifenesin 10 Ml Udc (200mg/10ml)) 20 ml PO Q4H PRN PRN PRN Reason: COUGH Last Admin: 01/13/21 20:43 Dose: 20 ml Documented by: Sodium Chloride () 250 mls @ 15 mls/hr IV .[id number] PRN PRN Reason: Saline Flush Last Infusion: 01/14/21 00:24 Dose: Infused Documented by: Lisinopril (Lisinopril 5 Mg Tablet) 5 mg PO QHS [facility] Last Admin: 01/13/21 21:29 Dose: 5 mg Documented by: Methylprednisolone (Methylprednisolone 40 Mg/Ml Vial) 40 mg IV Q8 [facility] Last Admin: 01/14/21 06:21 Dose: 40 mg Documented by: Nutritional Formula (Lactose Free) (Ensure Enlive 120 Ml Liquid) 120 ml PO 4X/DAY [facility] Last Admin: 01/14/21 09:56 Dose: 120 ml Documented by: Ondansetron HCl (Ondansetron 4 Mg/2 Ml Vial) 4 mg IV Q6H PRN PRN PRN Reason: NAUSEA/VOMITING Last Admin: 01/12/21 20:44 Dose: 4 mg Documented by: Psyllium Hydrophilic Mucilloid (Psyllium 1 Packet) 1 packet PO DAILY PRN PRN PRN Reason: Constipation Senna/Docusate Sodium (Senna/Docusate Sodium 1 Tablet) 2 tablet PO BID PRN PRN PRN Reason: Constipation Sodium Chloride (0.9% Saline Lock 10 Ml Syringe) 10 - 40 ml IV UD PRN PRN Reason: SALINE FLUSH Last Admin: 01/14/21 06:21 Dose: 10 ml Documented by: Trazodone HCl (Trazodone 50 Mg Tablet) 50 mg PO QHS PRN PRN PRN Reason: SLEEP Last Admin: 01/13/21 21:34 Dose: 50 mg Documented by: Disposition: Home Minutes spent on discharge:: 35 Patient Condition:: Stable Addendum: Dr. Kotsonis I personally examined the patient and reviewed the chart. I agree with the above. 75-year-old female with a history of COPD presents with shortness of breath secondary to a COPD exacerbation. She does not wear oxygen at home and on presentation to the ER was placed on 3 L and is down to 2 L nasal cannula. She is extremely hesitant about having any oxygen at home therefore we will continue to encourage incentive spirometry continue with steroids and breathing treatments. She is afebrile without a leukocytosis will discontinue Levaquin and azithromycin as I do not believe that there is any acute infectious process at the moment. Her UA has no urine white blood cells and some urine squames making it invalid. 01/13/2021: Doing well today, still requiring oxygen but she did initially want to try to go home so we did an ambulatory pulse ox and she was requiring a little over 4 L to maintain her oxygen sats above 94%. She will need 2 L at rest however she is willing to stay 1 more day to continue with steroids and breathing treatments. 01/14/2021: Doing well today, says that she feels like she might be breathing little bit better. Continue to defensive secondary coach her on her incentive spirometer. She had another ambulatory pulse ox and she still needing about 2 to 3 L with ambulation which I advised her that she should also wear when she is sleeping at night. She does not want to stay anymore in the hospital she wants to go home today therefore will place her on a steroid taper for 12 to 14 days and have her follow-up with her molded goods spot picker within the next week or so. She will continue with her home inhalers as well as O2. I discussed with her the plan for discharge today and she expressed understanding of the risk and benefits and wants to go today. Inpatient E&M: [id number] Disch Hosp
--- NOTE | 2021-01-14 12:05 | PHA.DC.MC ---
Pharmacy Service has performed discharge medication reconciliation and counseling for this patient. 1. PREDNISONE 40MG PO DAILYCM X 3 DAYS, THEN 30MG X 3 DAYS, THEN 20MG X 3 DAYS, THEN 10MG X 3 DAYS The patient's discharge medication list was reviewed for discrepancies and discrepancies were resolved. Home Medications Albuterol Sulfate [Ventolin Hfa] 1 - 2 puff INHALATION Q4H PRN 11/26/17 Gabapentin [Neurontin] 600 mg PO QHS 11/26/17 Albuterol Aerosols [Ventolin Aerosols] 2.5 mg INHALATION Q2H PRN PRN #1 box 11/28/17 Fluticasone/Umeclidin/Vilanter [Trelegy Ellipta 100-62.5-25] 1 puff IH DAILY 10/16/18 Trazodone HCl 50 mg PO QHS PRN PRN 10/30/19 Atorvastatin Calcium 20 mg PO QHS 06/27/20 Carvedilol 3.125 mg PO BID 06/27/20 Aspirin 81 mg PO DAILY 01/11/21 Lisinopril 5 mg PO QHS 01/11/21 predniSONE tablet See Taper PO DAILY 14 Days #15 tab 01/14/21 The patient was counseled on the following discharge medications and changes in medications for homegoing were reviewed. The Reason for Use, instructions for use, and potential side effects were reviewed for all new medications. The patient's questions regarding all of their medications were answered. The patient was able to verbally demonstrate an understanding of their discharge medications.
== END 2021-01-14 13:20 | disposition home or self-care (01) | DRG 190 ==
LOC: ED 16:48 → MS3 18:10
PROVIDERS: Nurse Practitioner Family; Admitting Provider Internal Medicine; Emergency Provider Emergency Medicine; PCP Family Medicine; Visit Provider Family Medicine
DX: J44.1 Chronic obstructive pulmonary disease with (acute) exacerbation (principal); E43 Unspecified severe protein-calorie malnutrition; J96.21 Acute and chronic respiratory failure with hypoxia; I21.A1 Myocardial infarction type 2; E87.1 Hypo-osmolality and hyponatremia; Z68.1 Body mass index [BMI] 19.9 or less, adult; N39.0 Urinary tract infection, site not specified; Z87.891 Personal history of nicotine dependence; E78.5 Hyperlipidemia, unspecified; I10 Essential (primary) hypertension; G62.9 Polyneuropathy, unspecified; R91.1 Solitary pulmonary nodule; Z79.899 Other long term (current) drug therapy; Z79.51 Long term (current) use of inhaled steroids; I73.9 Peripheral vascular disease, unspecified; N95.1 Menopausal and female climacteric states
CPT/HCPCS: 36415; 71045; 80048; 80053; 81001; 83605; 83880; 84484; 85025; 87040; 87077; 87086; 87088; 87426; 87633; 93005; 94640; 94667; 94668; 97802; 99251; 99285; J7050; A4216; G0463; J2405

== ENCOUNTER 2021-01-14 21:13 | Inpatient (IN) | payer MEDICARE, OTHER, SELFPAY ==
[2021-01-12 14:51] VITALS: BMI 14.6
[2021-01-14] VITALS (7 sets, daily range): BP systolic 153–178; BP diastolic 68–86; PULSE 80–88; RESP 14–23; TEMP 36–36.8; O2SAT 86–98; BMI 14.6
--- NOTE | 2021-01-14 21:27 | EKG12_ITS ---
Test Reason : SOB Blood Pressure : / mmHG Vent. Rate : 102 BPM Atrial Rate : 076 BPM P-R Int : 124 ms QRS Dur : 072 ms QT Int : 366 ms P-R-T Axes : 085 083 076 degrees QTc Int : 477 ms Normal sinus rhythm Otherwise normal ECG Confirmed by CASEY CEJA, RICARDO ([id number]), supervising editor trailer CATHERINE CARBAJAL ([id number]) on 01/17/2021 10:37:25 A M Referred By: YADIEL Confirmed By:ROOPA PEÑA MD
--- NOTE | 2021-01-14 21:28 | ED.VIS.GEN ---
History of Present Illness Chief Complaint: Shortness of Breath Informant: Patient, Family Onset: Today Narrative: Discharge from ED today at 3 PM for COPD exacerbation. She is sent home on 2 L of oxygen and prednisone taper. She states she does have oxygen at home. Reports at home increasing dyspnea and wheeze. Last breathing treatment 4:30 PM 5 hours ago. She took her prednisone this evening. Remote tobacco history. Per son she developed headache and changes in taste therefore took her directly here. Covid testing was negative when she was here has not had Covid infection. Patient brought in by son off oxygen having worsening dyspnea in transport and arrival. Stable cough. Prior similar symptoms: Yes Past Medical History - Allergies and Home Meds Allergies/Adverse Reactions: Allergies Sulfa (Sulfonamide Antibiotics) Allergy (Verified 01/14/21 21:16) FACE GETS RED AND ITCHY codeine Adverse Reaction (Verified 01/14/21 21:16) Nausea Primary Care Physician: Matt Peace MD [Primary Care Provider] - Past Medical History: - - COPD, hypertension, hyperlipidemia, NSTEMI Surgical History: cholecystectomy, hysterectomy, - - spinal surgery Smoking Status: Former smoker - Family History Maternal Family History: Family History (Last Reviewed 05/03/20 @ 18:[address] Gerry Hurtado DO) Father Kidney disease Sister Breast cancer Sister Cancer Family History: Reports: Heart Disease Paternal Family History: Family History (Last Reviewed 05/03/20 @ 18:[address] Gerry Hurtado DO) Father Kidney disease Sister Breast cancer Sister Cancer Family History: Reports: Renal Disease Review of Systems General: Denies: Chills, Fever, Sweats Eyes: Denies: Visual changes - bilaterally, Diplopia ENT: Denies: Rhinorrhea, Sore throat Cardiovascular: Denies: Chest pain, Palpitations Respiratory: Reports: Dyspnea, Cough. Denies: Dyspnea on exertion Gastrointestinal: Denies: Abdominal pain, Nausea, Vomiting, Diarrhea, Melena, Hematochezia Genitourinary: Denies: Dysuria, Hematuria, Frequency Musculoskeletal: Denies: Back pain, Extremity Pain Skin: Denies: Rash, Wounds Neurological: Denies: Headache, Weakness, Numbness Physical Exam Vital Signs/Narrative: Vital Signs Temp Pulse Resp BP Pulse Ox 01/14/21 21:22 94 01/14/21 21:14 96.8 F L 88 22 H 178/86 H 86 Inital Vital Signs reviewed: Yes General: Well nourished, Well developed, - - Pursed lip breathing Head: Normocephalic, Atraumatic Eyes: Perrl, EOMI ENT: Moist mucous membranes, No rhinorrhea Neck: Supple, Nontender Cardiovascular: Regular rate, Regular rhythm, No murmurs Respiratory: Chest nontender, Wheezing, - - Bilateral expiratory wheezing. Abdomen: Soft, Nontender, Nondistended, Normal bowel sounds Back: Nontender, Normal Inspection Extremities: Nontender, No edema Skin: Normal color, No rash Neurological: Alert, Oriented x3, Cranial nerves II-XII grossly intact, Normal Strength, Normal Sensation Psychological: Normal affect, Normal Mood Diagnostic/Tx/Re-eval Chest X-Ray - ED: 1 View, Read by ED Physician, Read by Radiologist, Chronic Changes Clinical Impression(s) from Imaging Studies Chest X-Ray 01/14/21 21:56 IMPRESSION: COPD without acute findings Electronically Signed: Linwood Cueva DO at 22:17 EDT Tel , Service support , Abnormal Lab Results 01/14/21 01/14/21 01/14/21 21:32 21:32 22:30 WBC 13.6 H RBC 4.04 L Hgb 12.6 Hct 38.5 MCV 95.3 MCH 31.2 MCHC 32.7 RDW Std Deviation 45.1 H RDW Coeff of Ashu 12.9 Plt Count 325 MPV 9.6 Immature Gran % (Auto) 0.500 Neut % (Auto) 89.1 H Lymph % (Auto) 3.5 L [place] % (Auto) 6.8 Eos % (Auto) 0.0 Baso % (Auto) 0.1 Absolute Neuts (auto) 12.1 H Absolute Lymphs (auto) 0.48 L Nucleated RBC % 0 Sodium Cancelled 125 L Potassium Cancelled 4.9 Chloride Cancelled 89 L Carbon Dioxide Cancelled 35.0 H Anion Gap Cancelled 1 L BUN Cancelled 28 H Creatinine Cancelled 0.88 Estim Creat Clear Calc Cancelled 35.34 Est GFR (MDRD) Af Amer Cancelled 81 Est GFR (MDRD) Non-Af Cancelled 67 BUN/Creatinine Ratio Cancelled 31.7 H Glucose Cancelled 106 Calcium Cancelled 8.8 Troponin I Cancelled 0.096 H - EKG Initial EKG Interpretation: Sinus Rhythm - Thanks sinus rate of 102, no ST or T wave changes, artifacts on the lateral leads. - Medical Decision Making Patient 86% on room air on arrival however she should be on oxygen for discharge. On 2 L oxygen is stable. With her wheezing on exam she is given DuoNeb treatment. EKG is sinus rhythm, work-up initiated. Chest x-ray notes COPD lungs on my review and read by radiology. No infiltrates noted. Labs noted white count 13.6, she is on steroids. Electrolytes noted hyponatremia with a sodium of 125 down from 132 earlier today. Troponin leak of 0.096. She had normal troponin III days ago. She denies any chest pains. Likely type II strain from her respiratory symptoms. She did have CO2 35 today from her BMP. Slightly trending up from her recent labs, she is not confused. She required additional DuoNeb treatment. She was ambulated on 2 L was 98% however felt short of breath. With patient hyponatremia and troponin leak, I do feel she will benefit from hospitalizations for continued management. I spoke with hospitalist,Dr. Saenz, will give additional 60 mg of Solu-Medrol in the ED. Will admit to medical floor on telemetry for further management. Patient and family updated. ED Disposition - Plan for ED Patient: Disposition: Acute Care Hospital [facility] Diagnosis: COPD with acute exacerbation, Hyponatremia, Elevated troponin Referrals: Matt Peace MD [Primary Care Provider] -
[2021-01-14] MEDS: Ipratropium/Albuterol Sulfate 3 ML AMPUL.NEB INHALATION ×2 (21:39→23:02)
[2021-01-14 21:47] LABS: Absolute Lymphocyte Count 0.48 X10^3/uL (0.83-4.51); Absolute Neutrophil Count 12.1 X10^3/uL (2.0-7.7); Basophil# 0.01 X10^3/uL; Basophil% 0.1 % (0-1); Hematocrit 38.5 % (37-47); Hemoglobin 12.6 g/dL (12.0-15.0); Lymphocyte # 0.48 X10^3/ul (4.0); Lymphocyte % 3.5 % (19-41); Mean Corp Hgb Conc 32.7 g/dL (32-36); Mean Corpuscular Hgb 31.2 pg (27.0-32.0); Mean Corpuscular Volume 95.3 fL (81-99); Mean Platelet Vol. 9.6 fl (6.2-12.0); Monocyte# 0.92 X10^3/uL; Monocyte% 6.8 % (0-10); NRBC Flagged by Analyzer 0 % (0-5); Neutrophil # 12.13 X10^3/uL (2.7-7.7); Neutrophil % 89.1 % (47-70); POSITIVE DIFFERENTIAL YES; Platelet Count 325 K/mm3 (150-450); RBC Distribution Width CV 12.9 % (11.6-14.6); RBC Distribution Width SD 45.1 fl (35.1-43.9); Red Blood Count 4.04 M/mm3 (4.2-5.4); White Blood Count 13.6 K/mm3 (4.4-11.0)
[2021-01-14 21:54] LABS: Differential Indicated SCAN CRITERIA MET
--- NOTE | 2021-01-14 21:56 | RAD_ITS ---
STUDY: X-RAY CHEST REASON FOR EXAM: Female, 75 years old. sob TECHNIQUE: Single AP portable view of the chest. COMPARISON: 01/11/2021 FINDINGS: There is hyperinflation of the lungs consistent with chronic obstructive lung disease (COPD). Lungs are clear. Likely left lung base multiple shadow. There is no demonstrated pleural abnormality. Normal size heart. Normal mediastinum and marco antonio. Normal visualized pulmonary arteries. Normal visualized aortic arch and descending thoracic aorta. Normal visualized thoracic spine. Normal visualized ribs, clavicles, and shoulders. There is no demonstrated abnormality of the visualized soft tissue structures of the upper abdomen. RAD/Chest 1 View (Portable) IMPRESSION: COPD without acute findings Electronically Signed: Linwood Cueva DO at 22:17 EDT Tel , Service support ,
[2021-01-14 23:11] LABS: Anion Gap 1 (5-15); BUN 28 mg/dL (7-18); BUN/Creat Ratio 31.7 RATIO (10-20); Calcium,Total 8.8 mg/dL (8.5-10.1); Chloride 89 mmol/L (98-107); Creatinine, Serum 0.88 mg/dL (0.55-1.02); EST Glomerular Filtration Rate 67 mL/min (>60); Est Glom Filt Rate - Afr Amer 81 mL/min (>60); Estimated Creatinine Clearance 35.34 ml/min; Glucose 106 mg/dL (74-106); Potassium 4.9 mmol/L (3.5-5.1); Sodium Level 125 mmol/L (136-145)
--- NOTE | 2021-01-14 23:41 | HP.PCM_ITS ---
Problem List (1) Infestation by fang hines Status: Acute (2) COPD (chronic obstructive pulmonary disease) Status: Acute (3) COPD with acute exacerbation Status: Acute (4) Hypertension Status: Chronic (5) Hyponatremia Status: Acute (6) Elevated troponin Status: Acute (7) Hypoxia Status: Inactive (8) JIM (acute kidney injury) Status: Resolved (9) GI bleed Status: Resolved (10) Protein calorie malnutrition Status: Chronic (11) NSTEMI (non-ST elevated myocardial infarction) Status: Ruled-out (12) Cardiac dysrhythmia Status: Chronic (13) Cardiomyopathy Status: Chronic (14) Neurogenic bowel Status: Chronic (15) Neurogenic bladder Status: Chronic (16) HLD (hyperlipidemia) Status: Chronic History of Present Illness Date of Admission: 01/15/21 Chief Complaint: Shortness of breath The patient is a 75 year old F with a significant history of COPD; former smoker who presents emergency department with progressively worsening shortness of breath started about a week prior to this presentation. Of note patient was ad mitted on a hospital on 01/11/2021 with a diagnosis of COPD exacerbation and discharged home on a steroid taper; and oxygen. However on the same day of discharge he presented again to the emergency department with progressively worsening shortness of breath. Associated with her symptoms is wheezing and a productive cough of yellow sputum. Further, she complains of right temporal headache. She report that on her home oxygen her oxygen saturation was about 90%. Reportedly she was brought to the emergency department without oxygen and her oxygen saturation was 86%. Past Medical History Past Medical History (Chronic Problems): Chronic Problems (Last Reviewed 01/15/21 @ 00:[address] Reyes Saenz MD) Hypertension (Chronic) Protein calorie malnutrition (Chronic) Cardiac dysrhythmia (Chronic) Cardiomyopathy (Chronic) Neurogenic bowel (Chronic) Neurogenic bladder (Chronic) HLD (hyperlipidemia) (Chronic) Medical History: Medical History (Last Reviewed 01/15/21 @ 00:[address] Reyes Saenz MD) Guaiac positive stools (Inactive) R19.5 COPD (chronic obstructive pulmonary disease) J44.9 History of left heart catheterization (LHC) Onset Date: ~06/02/20 Z98.890 normal coronaries per cath 06/02/20 @ [facility] Allergies Sulfa (Sulfonamide Antibiotics) Allergy (Verified 01/14/21 21:16) FACE GETS RED AND ITCHY codeine Adverse Reaction (Verified 01/14/21 21:16) Nausea Home Medications: Ambulatory Orders Medication Instructions Recorded Albuterol Sulfate [Ventolin Hfa] 1 - 2 puff INHALATION Q4H PRN 11/26/17 Gabapentin [Neurontin] 600 mg PO QHS 11/26/17 Albuterol Aerosols [Ventolin 2.5 mg INHALATION Q2H PRN PRN #1 11/28/17 Aerosols] box Fluticasone/Umeclidin/Vilanter 1 puff IH DAILY 10/16/18 [Trelegy Ellipta 100-62.5-25] Trazodone HCl 50 mg PO QHS PRN PRN 10/30/19 Atorvastatin Calcium 20 mg PO QHS 06/27/20 Carvedilol 3.125 mg PO BID 06/27/20 Aspirin 81 mg PO DAILY 01/11/21 Lisinopril 5 mg PO QHS 01/11/21 predniSONE tablet See Taper PO DAILY 01/15/21 Surgical History: Surgical History (Last Reviewed 01/15/21 @ 00:[address] 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 Reyes Saenz MD) Father Kidney disease Sister Breast cancer Sister Cancer History Items: Heart Disease Paternal Family History: Family History (Last Reviewed 01/15/21 @ 00:[address] Reyes Saenz MD) Father Kidney disease Sister Breast cancer Sister Cancer History Items: Renal Disease Review of Systems Constitutional: Denies: Chills, Fever, Weight Change HEENT: Reports: Head Aches. Denies: Sinus Congestion, Sinus Drainage Cardiovascular: Denies: Chest Pain, Palpitations Respiratory: Reports: Cough, Shortness of Breath, Sputum production, Wheezing Gastrointestinal: Denies: Abdominal Pain, Nausea, Vomiting Genitourinary: Denies: Dysuria Musculoskeletal: Denies: Joint Pain, Joint Tenderness Skin: Denies: Rash, Wounds Neurological: Denies: Numbness, Tingling, Focal weakness Psychiatric: Denies: Anxiety, Depression, Homicidal Ideations, Suicidal Ideations Hematologic/ Lymphatic: Denies: Easy Bruising, Easy Bleeding VTE Information - Inpt Only VTE Present on Admission: No VTE Mechan Device Prophylaxis: None VTE Pharm Prophylaxis ordered?: Yes Patient Problems: Active and Suspected Problems (Last Reviewed 01/15/21 @ 00:[address] Reyes Saenz MD) COPD with acute exacerbation (Acute) Hyponatremia (Acute) Elevated troponin (Acute) Infestation by cimex lectularius (Acute) COPD (chronic obstructive pulmonary disease) (Acute) - Physical Exam Vitals/I&O's: Vital Signs Temp Pulse Resp BP Pulse Ox 98.3 F 84 23 H 153/72 H 98 01/14/21 23:34 01/14/21 23:34 01/14/21 23:34 01/14/21 23:34 01/14/21 23:34 Oxygen Flow Rate (L/min) 2 Oxygen Delivery Method Room Air Weight: 39.916 kg Body Mass Index (BMI) 14.6 General: Alert, Oriented x3, Cooperative HEENT: Atraumatic, PERRLA, EOMI, Normocephalic Neck: Supple, No JVD, Negative Carotid Bruits Lungs: Short of Breath, Tachypneic, Using Accessory Muscles, Wheezes, - - Pursed lip breathing Cardiovascular: Normal S1, Normal S2, No murmurs Abdomen: Bowel Sounds Present, Soft, Non Tender Extremities: No edema, Capillary Refill Less than 3 Seconds, Cool Skin: No rashes, No breakdown Musculoskeletal: No Tenderness to Palpation of Joints or Extremities Neurological: Cranial nerves II-XII grossly intact Psych/Mental Status: Normal Affect, Appropriate Microbiology Past 72 Hours 01/14/21 21:30 Mucosa - Nose SARS-CoV-2 Antigen (Rapid) - Final Laboratory Results 01/14/21 21:32: WBC 13.6 H, RBC 4.04 L, Hgb 12.6, Hct 38.5, MCV 95.3, MCH 31.2, MCHC 32.7, RDW Std Deviation 45.1 H, RDW Coeff of Ashu 12.9, Plt Count 325, MPV 9.6, Immature Gran % (Auto) 0.500, Neut % (Auto) 89.1 H, Lymph % (Auto) 3.5 L, [place] % (Auto) 6.8, Eos % (Auto) 0.0, Baso % (Auto) 0.1, Absolute Neuts (auto) 12.1 H, Absolute Lymphs (auto) 0.48 L, Nucleated RBC % 0 01/14/21 21:32: Sodium Cancelled, Potassium Cancelled, Chloride Cancelled, Carbon Dioxide Cancelled, Anion Gap Cancelled, BUN Cancelled, Creatinine Cancelled, Estim Creat Clear Calc Cancelled, Est GFR (MDRD) Af Amer Cancelled, Est GFR (MDRD) Non-Af Cancelled, BUN/Creatinine Ratio Cancelled, Glucose Cancelled, Calcium Cancelled, Troponin I Cancelled 01/14/21 22:30: Sodium 125 L, Potassium 4.9, Chloride 89 L, Carbon Dioxide 35.0 H, Anion Gap 1 L, BUN 28 H, Creatinine 0.88, Estim Creat Clear Calc 35.34, Est GFR (MDRD) Af Amer 81, Est GFR (MDRD) Non-Af 67, BUN/Creatinine Ratio 31.7 H, Glucose 106, Calcium 8.8, Troponin I 0.096 H Assessment/Plan All Active Problems (Last Reviewed 01/15/21 @ 00:[address] Reyes Saenz MD) COPD with acute exacerbation (Acute) Hyponatremia (Acute) Elevated troponin (Acute) Infestation by cimex lectularius (Acute) COPD (chronic obstructive pulmonary disease) (Acute) JIM (acute kidney injury) (Resolved) GI bleed (Resolved) NSTEMI (non-ST elevated myocardial infarction) (Ruled-out) The patient is a 75 year old F with a significant history of COPD; former smoker who presents to the emergency department with progressively worsening shortness of breath; and negative rapid Covid screen; and with chest x-ray findings of hyperinflation without infiltrates. Acute exacerbation of COPD Radiologist impression of chest x-ray: COPD without acute findings. Ultra chest x-ray image was independently reviewed. I agree with direct interpretation. Rapid Covid screen (01/14/2021) done at the emergency department was negative. Covid screen on 01/11/2021 was negative. Chest x-ray was not typical for Covid. Scheduled DuoNeb ordered Albuterol as needed Solu-Medrol [id number] ordered Due to the persistence of her symptoms will start her on Levaquin. Oxygen by nasal cannula to keep oxygen saturation more than 92%. With leukocytosis likely secondary to steroid use; trend CBC. Monitor BMP Elevated troponin Likely secondary to demand ischemia. Trend troponin EKG without ST or T wave abnormalities. Hyponatremia Sodium of 125 on presentation. Chloride of 89. Etiology unclear TSH ordered. Urine sodium; urine osmolality and serum osmolality ordered. Fang hines Found to have bedbugs crawling on ED bed that she was lying on. Denies bedbugs at home. Treated at the ED and clothing isolated DVT prophylaxis Subcutaneous Lovenox. Inpatient E&M: [id number] Init Hosp L3
[2021-01-15] VITALS (17 sets, daily range): BP systolic 120–174; BP diastolic 67–89; PULSE 71–99; RESP 16–24; TEMP 36–36.9; O2SAT 94–100; BMI 15.3; BMI 15.4
[2021-01-15] MEDS: 0.9% Saline Lock 10 ML Syringe IV ×4 (01:23→20:49)
[2021-01-15] MEDS: 0.9% Normal Saline 1,000 ML 75 ML IV (01:23)
[2021-01-15] MEDS: guaiFENesin 1,200 MG Tablet 1200 MG PO ×3 (01:30→20:48)
[2021-01-15] MEDS: MELATONIN 3 MG TABLET PO ×3 (01:32→23:41)
[2021-01-15] MEDS: Ondansetron 4 MG/2 ML Vial IV (01:51)
[2021-01-15 01:56] LABS: Urine Sodium 40 mmol/L (Not Establ.)
[2021-01-15 01:58] LABS: Osmolality, Urine 442 mOsm/KG
[2021-01-15] MEDS: Albuterol 2.5 MG/3 ML VIAL.NEB. INHALATION (01:58)
[2021-01-15 01:59] LABS: Osmolality, Serum 269 mOsm/KG (280-301)
--- NOTE | 2021-01-15 02:22 | CPS ---
Re-evaluating pt.'s progress with PEP device later in shift. Chest vest may be necessary if pt. continues to have poor effort/results when using PEP device after aerosol breathing tx.'s. Pt. explained the purpose and reasoning with possibly using chest vest during her future breathing tx.'s while at hospital.
[2021-01-15] MEDS: Acetaminophen 325 MG Tablet 650 MG PO ×2 (03:23→11:20)
--- NOTE | 2021-01-15 05:01 | NURSING ---
Respiratory called for breathing treatment.
[2021-01-15 05:23] LABS: Absolute Lymphocyte Count 0.21 X10^3/uL (0.83-4.51); Basophil# 0.01 X10^3/uL; Basophil% 0.1 % (0-1); Hematocrit 36.7 % (37-47); Hemoglobin 12.3 g/dL (12.0-15.0); Lymphocyte # 0.21 X10^3/ul (4.0); Lymphocyte % 1.9 % (19-41); Mean Corp Hgb Conc 33.5 g/dL (32-36); Mean Corpuscular Hgb 31.9 pg (27.0-32.0); Mean Corpuscular Volume 95.3 fL (81-99); Mean Platelet Vol. 9.5 fl (6.2-12.0); Monocyte# 0.43 X10^3/uL; NRBC Flagged by Analyzer 0 % (0-5); Neutrophil # 10.04 X10^3/uL (2.7-7.7); Neutrophil % 93.3 % (47-70); POSITIVE DIFFERENTIAL YES; Platelet Count 301 K/mm3 (150-450); RBC Distribution Width CV 12.8 % (11.6-14.6); RBC Distribution Width SD 44.2 fl (35.1-43.9); Red Blood Count 3.85 M/mm3 (4.2-5.4); White Blood Count 10.8 K/mm3 (4.4-11.0)
[2021-01-15] MEDS: levoFLOXacin 750 MG Tablet PO (05:34)
[2021-01-15 05:45] LABS: Differential Indicated SCAN CRITERIA MET
[2021-01-15 05:50] LABS: Anion Gap 6 (5-15); BUN 25 mg/dL (7-18); BUN/Creat Ratio 29.8 RATIO (10-20); Calcium,Total 8.5 mg/dL (8.5-10.1); Chloride 90 mmol/L (98-107); Creatinine, Serum 0.84 mg/dL (0.55-1.02); EST Glomerular Filtration Rate 71 mL/min (>60); Est Glom Filt Rate - Afr Amer 85 mL/min (>60); Estimated Creatinine Clearance 38.87 ml/min; Glucose 119 mg/dL (74-106); Potassium 4.4 mmol/L (3.5-5.1); Sodium Level 126 mmol/L (136-145); Thyroid Stim Hormone (TSH) 1.54 uIU/mL (0.358-3.74)
[2021-01-15] MEDS: Ipratropium/Albuterol Sulfate 3 ML AMPUL.NEB INHALATION ×4 (07:07→18:57)
[2021-01-15] MEDS: Enoxaparin 40 MG/0.4 ML Syringe SC ×2 (08:47→17:16)
--- NOTE | 2021-01-15 09:27 | PCM.NTREPORT ---
Nutrition Therapy Report - History Nutrition Services has been consulted to:: Manage nutrient details of diet order Current diet / nutrition support order:: Regular diet - Anthropometric Measurements Height:: 5 ft 5 in Weight:: 41.9 kg Body Mass Index (BMI):: 15.3 - Relevant Labs Relevant Labs:: WBC 13.6 K/mm3 (4.4-11.0) H 01/14/21 21:32 RBC 3.85 M/mm3 (4.2-5.4) L 01/15/21 05:10 Hct 36.7 % (37-47) L 01/15/21 05:10 RDW Std Deviation 44.2 fl (35.1-43.9) H 01/15/21 05:10 Neut % (Auto) 93.3 % (47-70) H 01/15/21 05:10 Lymph % (Auto) 1.9 % (19-41) L 01/15/21 05:10 Absolute Neuts (auto) 10.0 X10^3/uL (2.0-7.7) H 01/15/21 05:10 Absolute Lymphs (auto) 0.21 X10^3/uL (0.83-4.51) L 01/15/21 05:10 Sodium 126 mmol/L (136-145) L 01/15/21 05:10 Chloride 90 mmol/L (98-107) L 01/15/21 05:10 Carbon Dioxide 35.0 mmol/L (21.0-32.0) H 01/14/21 22:30 Anion Gap 1 (5-15) L 01/14/21 22:30 BUN 25 mg/dL (7-18) H 01/15/21 05:10 BUN/Creatinine Ratio 29.8 RATIO (10-20) H 01/15/21 05:10 Glucose 119 mg/dL (74-106) H 01/15/21 05:10 Serum Osmolality 269 mOsm/KG (280-301) L 01/15/21 01:40 Troponin I 0.468 ng/mL (<0.045) H 01/15/21 05:10 - Assessment Food / Nutrition-Related History:: Pt familiar to this RD from previous admit--reports UBW~100 lbs over 1 year ago but, currently maintaining wt ~90 lbs without recent wt loss. Calculated~8% wt loss x approx 1 year time frame. Denies difficulty chewing/swallowing and open to ONS as needed. Pt reports cinthya/intake are very good and that she is a grazer eats smaller snacks/meals throughout the day. PO to be established since this admit but, typically tolerates meals well. Suspect pt with inadequate energy/pro intake as related to increased energy expenditure due to COPD. Pt likes orange sherbet--will try ensure clear w/ breakfast, orange magic cup BID w/ meals and ensure enlive w/ medpass as tolerated to prevent wt loss from increased energy expenditure. +NFPA with obvious signs of muscle/fat wasting in the face, clavicle, upper body, arms and legs. - Nutrition Diagnosis Problem / Etiology / Signs & Symptoms (PES):: Moderate to severe pro/riaz malnutrition in the context of chronic disease related to increased energy expenditure as evidenced by as evidenced by BMI 15.4, ~8% wt loss x past 12 months and +NFPA with moderate to severe muscle and fat wasting in the face, clavicle, upper body, arms and legs. Evidence of Malnutrition Exists:: Yes Severe PCM:: Chronic Illness - Nutrition Intervention Nutrition Prescription:: Estimated nutrition needs~5022-6872 kcal (30 kcal/Kg + 300 kcal for wt gain) and ~60-65 gm pro (1.5 gm pro/Kg) per day for repletion of pro/energy. Estimated fluid needs~0914-2202 ml/day (1 ml/est kcal). - Food / Nutrient Delivery Interventions Summary of nutrition intervention:: Continue liberalized regular diet as ordered. Will order 120ml ensure enlive 4 times per day w/ medpass, 240 ml ensure clear w/ breakfast and orange magic BID w/ lunch and dinner to provide additional 1520 kcal and 66 gm pro/day if consumed. Will monitor PO as established, wt, labs and follow-up with need to adjust ONS to optimize intake/nutrition. Nutrition education provided?: No - Pt familiar to this RD from previous admit. - MNT Monitoring Further MNT monitoring and evaluation required?: Yes MNT Follow-up in:: 3-5 days
--- NOTE | 2021-01-15 10:39 | ECHOD_ITS ---
Reason For Study: Elevated Troponins Procedure This was a 2D Doppler, Color Flow transthoracic echocardiogram. Technically difficult due to patients body habitus. Exam performed portable in patient room. Left Ventricle Normal left ventricle. The estimated ejection fraction is EF 55-60% %. Right Ventricle Mildly dilated right ventricle. Atria The right atrium is mildly enlarged. Mitral Valve The mitral papillary muscle appears thickened and/or calcified. Trivial mitral valve insufficiency. Tricuspid Valve Normal tricuspid valve. Aortic Valve The aortic valve is not well visualized. Normal aortic valve. Pulmonic Valve The pulmonic valve is not well visualized. Great Vessels Normal aortic root. No collapse of the inferior vena cava. Pericardium/Pleural No pericardial effusion. MMode/2D Measurements & Calculations LVIDd: 3.1 cm IVSd: 0.84 cm LA dimension: 3.2 cm LVIDs: 2.5 cm LVPWd: 0.95 cm RVDd: 2.5 cm FS: 20.0 % LAV(MOD-bp): 28.7 ml LA A4 area: 17.7 cm2 RA A4 area: 6.5 cm2 LAV(MOD-bp) Indexed: 20.2 ml/m2 LAV(MOD-sp2): 13.5 ml LAV(MOD-sp4): 54.2 ml Time Measurements MV dec time: 0.30 sec Doppler Measurements & Calculations MV E max j luis: 68.7 cm/sec Lat Peak E' J Luis: 7.9 cm/sec Med Peak E' J Luis: 4.8 cm/sec MV A max j luis: 92.5 cm/sec E/E' lat: 8.7 E/E' med: 14.2 MV E/A: 0.74 MV V2 max: 124.9 cm/sec MV P1/2t max j luis: 96.4 cm/sec Ao V2 max: 131.4 cm/sec MV max P.2 mmHg MV P1/2t: 68.6 msec Ao max P.9 mmHg MV V2 mean: 60.0 cm/sec MV dec slope: 411.7 cm/sec2 MV mean P.8 mmHg MVA(P1/2t): 3.2 cm2 MV V2 VTI: 27.3 cm LV V1 max: 109.2 cm/sec MR max j luis: 662.0 cm/sec PA V2 max: 129.5 cm/sec LV V1 max P.8 mmHg MR max P.3 mmHg TR max j luis: 322.2 cm/sec TR max P.5 mmHg Interpretation Summary The estimated ejection fraction is EF 55-60% %. Mild RV dilatation Grade #I diastolic Dysfunction Ordering Physician: Gerry Hurtado Referring Physician: Matt Peace Performed By: Jourdan Waite RCS
--- NOTE | 2021-01-15 11:48 | PCM.PN.HOSP ---
Patient Problems: Active and Suspected Problems (Last Reviewed 01/15/21 @ 00:[address] Reyes Saenz MD) COPD with acute exacerbation (Acute) Hyponatremia (Acute) Elevated troponin (Acute) Infestation by cimex lectularius (Acute) COPD (chronic obstructive pulmonary disease) (Acute) Subjective: Breathing better, but still short of breath. Does not recall what they did for her when she was transferred in April. Vitals/I&O's: Vital Signs Temp Pulse Resp BP Pulse Ox 36.0 C L 86 18 153/73 H 100 01/15/21 08:09 01/15/21 09:37 01/15/21 08:09 01/15/21 08:09 01/15/21 08:09 Oxygen Flow Rate (L/min) 2 Oxygen Delivery Method Nasal Cannula Weight: 41.9 kg Body Mass Index (BMI) 15.3 Intake and Output for Last 24 Hours 01/13/21 01/14/21 01/15/21 23:59 23:59 23:59 Intake Total 943.75 / 943.75 Output Total 450 / 450 Balance 493.75 / 493.75 General: Alert, No apparent distress HEENT: Atraumatic, Normocephalic Oral: Moist Mucosa, No Gingival or Mucosal Lesions/ Ulcerations Neck: No Nodes, Thyroid Normal Size and Texture Lungs: Clear to auscultation, Diminished Cardiovascular: Regular rate, Regular Rhythm, Normal S1, Normal S2 Abdomen: Bowel Sounds Present, Soft, Non Tender, Non-Distended Extremities: No edema, No Calf Tenderness Microbiology Past 72 Hours 01/14/21 21:30 Mucosa - Nose SARS-CoV-2 Antigen (Rapid) - Final Laboratory Results 01/14/21 21:32: WBC 13.6 H, RBC 4.04 L, Hgb 12.6, Hct 38.5, MCV 95.3, MCH 31.2, MCHC 32.7, RDW Std Deviation 45.1 H, RDW Coeff of Ashu 12.9, Plt Count 325, MPV 9.6, Immature Gran % (Auto) 0.500, Neut % (Auto) 89.1 H, Lymph % (Auto) 3.5 L, [place] % (Auto) 6.8, Eos % (Auto) 0.0, Baso % (Auto) 0.1, Absolute Neuts (auto) 12.1 H, Absolute Lymphs (auto) 0.48 L, Nucleated RBC % 0 01/14/21 21:32: Sodium Cancelled, Potassium Cancelled, Chloride Cancelled, Carbon Dioxide Cancelled, Anion Gap Cancelled, BUN Cancelled, Creatinine Cancelled, Estim Creat Clear Calc Cancelled, Est GFR (MDRD) Af Amer Cancelled, Est GFR (MDRD) Non-Af Cancelled, BUN/Creatinine Ratio Cancelled, Glucose Cancelled, Calcium Cancelled, Troponin I Cancelled 01/14/21 22:30: Sodium 125 L, Potassium 4.9, Chloride 89 L, Carbon Dioxide 35.0 H, Anion Gap 1 L, BUN 28 H, Creatinine 0.88, Estim Creat Clear Calc 35.34, Est GFR (MDRD) Af Amer 81, Est GFR (MDRD) Non-Af 67, BUN/Creatinine Ratio 31.7 H, Glucose 106, Calcium 8.8, Troponin I 0.096 H 01/15/21 01:40: Serum Osmolality 269 L 01/15/21 01:40: Troponin I 0.425 H 01/15/21 01:40: Urine Osmolality 442, Ur Random Sodium 40 01/15/21 05:10: WBC 10.8, RBC 3.85 L, Hgb 12.3, Hct 36.7 L, MCV 95.3, MCH 31.9, MCHC 33.5, RDW Std Deviation 44.2 H, RDW Coeff of Ashu 12.8, Plt Count 301, MPV 9.5, Immature Gran % (Auto) 0.700, Neut % (Auto) 93.3 H, Lymph % (Auto) 1.9 L, [place] % (Auto) 4.0, Eos % (Auto) 0.0, Baso % (Auto) 0.1, Absolute Neuts (auto) 10.0 H, Absolute Lymphs (auto) 0.21 L, Nucleated RBC % 0 01/15/21 05:10: Sodium 126 L, Potassium 4.4, Chloride 90 L, Carbon Dioxide 30.0, Anion Gap 6, BUN 25 H, Creatinine 0.84, Estim Creat Clear Calc 38.87, Est GFR (MDRD) Af Amer 85, Est GFR (MDRD) Non-Af 71, BUN/Creatinine Ratio 29.8 H, Glucose 119 H, Calcium 8.5, TSH 1.54 01/15/21 05:10: Troponin I 0.468 H 01/15/21 10:48: Troponin I 0.637 H* Current Medications Acetaminophen (Acetaminophen 325 Mg Tablet) 650 mg PO Q6H PRN PRN PRN Reason: Pain Score 1-10/Temp > 100.7 F Last Admin: 01/15/21 11:20 Dose: 650 mg Documented by: Albuterol Sulfate (Albuterol 2.5 Mg/3 Ml Vial.Neb.) 2.5 mg INHALATION Q2H PRN PRN PRN Reason: Shortness of Breath/Wheezing Last Admin: 01/15/21 01:58 Dose: 2.5 mg Documented by: Albuterol/Ipratropium (Ipratropium/Albuterol Sulfate 3 Ml Ampul.Neb) 3 ml INHALATION Q4HWA.RT [facility] Last Admin: 01/15/21 07:07 Dose: 3 ml Documented by: Enoxaparin Sodium (Enoxaparin 40 Mg/0.4 Ml Syringe) 40 mg SC DAILY [facility] Last Admin: 01/15/21 08:47 Dose: 40 mg Documented by: Guaifenesin (Guaifenesin 1,200 Mg Tablet) 1,200 mg PO BID [facility] Last Admin: 01/15/21 08:47 Dose: 1,200 mg Documented by: Levofloxacin (Levofloxacin 750 Mg Tablet) 750 mg PO Q48H [facility] Stop: 01/19/21 06:01 Last Admin: 01/15/21 05:34 Dose: 750 mg Documented by: Melatonin (Melatonin 3 Mg Tablet) 3 mg PO QHS PRN PRN PRN Reason: INSOMNIA Last Admin: 01/15/21 01:32 Dose: 3 mg Documented by: Methylprednisolone (Methylprednisolone 40 Mg/Ml Vial) 40 mg IV Q8 [facility] Last Admin: 01/15/21 05:34 Dose: 40 mg Documented by: Nutritional Formula (Lactose Free) (Ensure Enlive 120 Ml Liquid) 120 ml PO 4X/DAY [facility] Ondansetron HCl (Ondansetron 4 Mg/2 Ml Vial) 4 mg IV Q8H PRN PRN PRN Reason: NAUSEA/VOMITING Last Admin: 01/15/21 01:51 Dose: 4 mg Documented by: Senna/Docusate Sodium (Senna/Docusate Sodium 1 Tablet) 2 tablet PO BID PRN PRN PRN Reason: Constipation Sodium Chloride (0.9% Saline Lock 10 Ml Syringe) 10 - 40 ml IV UD PRN PRN Reason: SALINE FLUSH Last Admin: 01/15/21 05:34 Dose: 20 ml Documented by: STROKE Vital Signs/Narrative: Vital Signs Temp Pulse Resp BP Pulse Ox 01/15/21 09:37 86 01/15/21 08:09 36.0 C L 80 18 153/73 H 100 Medical Necessity - Tobacco Use Smoking Status: Former smoker Assessment/Plan All Active Problems (Last Reviewed 01/15/21 @ 00:[address] Reyes Saenz MD) COPD with acute exacerbation (Acute) Hyponatremia (Acute) Elevated troponin (Acute) Infestation by cimex lectaileenius (Acute) COPD (chronic obstructive pulmonary disease) (Acute) JIM (acute kidney injury) (Resolved) GI bleed (Resolved) NSTEMI (non-ST elevated myocardial infarction) (Ruled-out) 1. AECOPD subjectively improved still on oxygen, but at 2l/m plan continue BDs and methylpred wean oxygen as able 2.NSTEMI may be demand, however, troponins have steadily gone up to now 0.637 plan start therapuetic enoxaparin (already VTE proph dosing of 40 today, will change to BID, because she is on 40kg) cardiology consult (DW Dr. Avery) echo check records from OSH (did patient have intervention?). Pt said it was [place], but listed as [facility] in dc summary 3. severe protein malnutrition seen by dietary plan: liberlized regular diet ensure enlive QID 4. hyponatremia ongoing suspect SIADH TSH normal plan: check cortisol 5. VTE prophylaxis: LMWH Inpatient E&M: 51149 Subs Hosp L2
--- NOTE | 2021-01-15 13:03 | CON.PCM_ITS ---
Reason for Consult Date of Consultation: 01/15/21 History of Present Illness: The patient is a 75 year old F [] Past Medical History Allergies/Adverse Reactions: Allergies Sulfa (Sulfonamide Antibiotics) Allergy (Verified 01/14/21 21:16) FACE GETS RED AND ITCHY codeine Adverse Reaction (Verified 01/14/21 21:16) Nausea Home Medications: Ambulatory Orders Medication Instructions Recorded Albuterol Sulfate [Ventolin Hfa] 1 - 2 puff INHALATION Q4H PRN 11/26/17 Gabapentin [Neurontin] 600 mg PO QHS 11/26/17 Albuterol Aerosols [Ventolin 2.5 mg INHALATION Q2H PRN PRN #1 11/28/17 Aerosols] box Fluticasone/Umeclidin/Vilanter 1 puff IH DAILY 10/16/18 [Trelegy Ellipta 100-62.5-25] Trazodone HCl 50 mg PO QHS PRN PRN 10/30/19 Atorvastatin Calcium 20 mg PO QHS 06/27/20 Carvedilol 3.125 mg PO BID 06/27/20 Aspirin 81 mg PO DAILY 01/11/21 Lisinopril 5 mg PO QHS 01/11/21 predniSONE tablet See Taper PO DAILY 01/15/21 Past Medical History (Chronic Problems): Chronic Problems (Last Reviewed 01/15/21 @ 00:[address] 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 Reyes Saenz MD) Father Kidney disease Sister Breast cancer Sister Cancer History Items: Heart Disease Paternal Family History: Family History (Last Reviewed 01/15/21 @ 00:[address] Reyes Saenz MD) Father Kidney disease Sister Breast cancer Sister Cancer History Items: Renal Disease Smoking Status: Former smoker Objective: Vital Signs Temp Pulse Resp BP Pulse Ox 96.8 F L 75 18 153/73 H 100 01/15/21 08:09 01/15/21 12:00 01/15/21 12:00 01/15/21 08:09 01/15/21 08:09 Oxygen Flow Rate (L/min) 2 Oxygen Delivery Method Nasal Cannula Weight: 92 lb 5.979 oz Body Mass Index (BMI) 15.3 Intake and Output for Last 24 Hours 01/13/21 01/14/21 01/15/21 23:59 23:59 23:59 Intake Total 943.75 / 943.75 Output Total 450 / 450 Balance 493.75 / 493.75 General: Awake, Alert, Oriented x 3 HEENT: PERRL, EOMI, Sclera Non Icteric Neck: Supple, Good ROM, No Lymph Node Enlargement Lungs: Clear to auscultation, Diminished Kee Bases Cardiovascular: Regular Rhythm, Normal S1, Normal S2, No Murmurs, No Rubs, No Gallops 01/14/21 21:32: WBC 13.6 H, RBC 4.04 L, Hgb 12.6, Hct 38.5, MCV 95.3, MCH 31.2, MCHC 32.7, Plt Count 325, MPV 9.6, Immature Gran % (Auto) 0.500, Neut % (Auto) 89.1 H, Lymph % (Auto) 3.5 L, [place] % (Auto) 6.8, Eos % (Auto) 0.0, Baso % (Auto) 0.1, Absolute Neuts (auto) 12.1 H, Nucleated RBC % 0 01/14/21 21:32: Sodium Cancelled, Potassium Cancelled, Chloride Cancelled, Carbon Dioxide Cancelled, Anion Gap Cancelled, BUN Cancelled, Creatinine Cancelled, Est GFR (MDRD) Af Amer Cancelled, Est GFR (MDRD) Non-Af Cancelled, BUN/Creatinine Ratio Cancelled, Glucose Cancelled, Calcium Cancelled, Troponin I Cancelled 01/14/21 22:30: Sodium 125 L, Potassium 4.9, Chloride 89 L, Carbon Dioxide 35.0 H, Anion Gap 1 L, BUN 28 H, Creatinine 0.88, Est GFR (MDRD) Af Amer 81, Est GFR (MDRD) Non-Af 67, BUN/Creatinine Ratio 31.7 H, Glucose 106, Calcium 8.8, Troponin I 0.096 H 01/15/21 01:40: Serum Osmolality 269 L 01/15/21 01:40: Troponin I 0.425 H 01/15/21 05:10: WBC 10.8, RBC 3.85 L, Hgb 12.3, Hct 36.7 L, MCV 95.3, MCH 31.9, MCHC 33.5, Plt Count 301, MPV 9.5, Immature Gran % (Auto) 0.700, Neut % (Auto) 93.3 H, Lymph % (Auto) 1.9 L, [place] % (Auto) 4.0, Eos % (Auto) 0.0, Baso % (Auto) 0.1, Absolute Neuts (auto) 10.0 H, Nucleated RBC % 0 01/15/21 05:10: Sodium 126 L, Potassium 4.4, Chloride 90 L, Carbon Dioxide 30.0, Anion Gap 6, BUN 25 H, Creatinine 0.84, Est GFR (MDRD) Af Amer 85, Est GFR (MDRD) Non-Af 71, BUN/Creatinine Ratio 29.8 H, Glucose 119 H, Calcium 8.5 01/15/21 05:10: Troponin I 0.468 H 01/15/21 10:48: Troponin I 0.637 H* Rhythm: Normal sinus rhythm EKG: Specific change ECHO: LV systolic function with RV dilatation/patient with longstanding history of COPD. Assessment/Plan 75-year-old patient Seen and evaluated today at bedside along with the nursing staff and discuss cardiac care plan Patient presented with severe shortness of breath Evidently she was here not too long ago patient had longstanding history of severe COPD On this admission she had a positive stool guaiac she had GI bleed with anemia and she has also acute kidney injury and electrolyte abnormality with hyponatremia Cardiac consultation requested due to mild elevation of cardiac biomarkers with troponin up to 0.637/high sensitive troponin I. Patient denied any symptoms of chest pain. She did have a cardiac catheterization at the [facility] according to patient probably 2 years ago and at that time she had been treated medically She also had a history of peripheral vascular disease she is a former smoker Assessment and plan;. 1. From cardiac standpoint we will continue to monitor with medical therapy Review of the bedside echocardiogram showed LV function is preserved. The electrocardiogram showed underlying normal sinus rhythm with nonspecific abnor malities. Check another set of cardiac biomarkers in the morning and discuss further plan.
--- NOTE | 2021-01-15 15:40 | CM.UR ---
This patient was discharged yesterday and returned 5 hours later. When she got to ER, she did not have her O2 on. spoke with patient and she denies no changes. Denies any needs at home. asked if I should call her son and ask him and she said yes. Called son to see if he felt anything was needed. I mentioned that she didn't have o2 on when he brought her to ER. States that he was not going to go through all the trouble of putting the machine in his car when we were going to put o2 on her when she got here. Explained when she is discharged he will have to bring a tank to take her home one. Verb understanding. He also said he is not going to make her do anything she doesn't want to do. I asked about what he meant and he got very angry and used foul language. He said that this is the 3rd time we sent her home on oxygen and she always sends it back. He states she is set in her ways and you can not get her to change. States she feels like the oxygen is a crutch. Apologized as I didn't know that she had oxygen before and that she was resistant. Got mad saying it was in her chart. Apologized again explaining I only looked at the most recent admission. He then went on about the hospital processes and how they wanted her insurance information stating we didn't have it on file when he brought her to ER yesterday. Didn't understand how that was possible when we had just discharged her that morning. I again apologized for the inconvenience. Asked if anyone had every mentioned hospice to his mother as she has a severe lung disease and if she is not willing to wear the oxygen, she may want to consider it. He said, she won't do that. Explained I will talk to her some more about the importance of wearing the oxygen at all times. Called patient back and instructed the importance of wearing the oxygen all the time and that Kavon told me she didn't want to wear it. She immediately became defensive. States that yes she knows she needs to wear it 24/7. Explained not wearing it will actually increase her anxiety. States it is hard when she sleeps because it comes off. Explained I understood that but when she does find that just put it back on. She said, Ok, bye. The call was then ended. Beti Rodriguez RN,CCM.
[2021-01-16] VITALS (12 sets, daily range): BP systolic 140–161; BP diastolic 43–80; PULSE 63–89; RESP 16–20; TEMP 36.2–36.8; O2SAT 93–97
[2021-01-16] MEDS: 0.9% Saline Lock 10 ML Syringe IV ×3 (06:04→21:00)
[2021-01-16] MEDS: Enoxaparin 40 MG/0.4 ML Syringe SC ×2 (06:04→18:40)
[2021-01-16 06:25] LABS: Absolute Lymphocyte Count 0.45 X10^3/uL (0.83-4.51); Absolute Neutrophil Count 5.5 X10^3/uL (2.0-7.7); Hematocrit 33.7 % (37-47); Hemoglobin 11.3 g/dL (12.0-15.0); Lymphocyte # 0.45 X10^3/ul (4.0); Lymphocyte % 6.7 % (19-41); Mean Corp Hgb Conc 33.5 g/dL (32-36); Mean Corpuscular Volume 92.3 fL (81-99); Mean Platelet Vol. 9.8 fl (6.2-12.0); Monocyte# 0.75 X10^3/uL; Monocyte% 11.2 % (0-10); NRBC Flagged by Analyzer 0 % (0-5); Neutrophil # 5.48 X10^3/uL (2.7-7.7); Neutrophil % 81.7 % (47-70); POSITIVE DIFFERENTIAL YES; Platelet Count 267 K/mm3 (150-450); RBC Distribution Width CV 12.4 % (11.6-14.6); RBC Distribution Width SD 42.4 fl (35.1-43.9); Red Blood Count 3.65 M/mm3 (4.2-5.4); White Blood Count 6.7 K/mm3 (4.4-11.0)
[2021-01-16 06:36] LABS: Differential Indicated SCAN CRITERIA MET
[2021-01-16 06:57] LABS: Acanthocytes RARE; Differential Comment SCANNED
[2021-01-16 06:59] LABS: Anion Gap 5 (5-15); BUN 22 mg/dL (7-18); BUN/Creat Ratio 31.7 RATIO (10-20); Calcium,Total 8.8 mg/dL (8.5-10.1); Chloride 90 mmol/L (98-107); Cholesterol 163 mg/dL (200); Creatinine, Serum 0.69 mg/dL (0.55-1.02); EST Glomerular Filtration Rate 88 mL/min (>60); Est Glom Filt Rate - Afr Amer 106 mL/min (>60); Estimated Creatinine Clearance 32.65 ml/min; Glucose 89 mg/dL (74-106); High Density Lipoprotein 68 mg/dL; Potassium 3.7 mmol/L (3.5-5.1); Sodium Level 127 mmol/L (136-145); Triglycerides 67 mg/dL; Very Low Density Lipoprotein 13 mg/dL (5-40)
[2021-01-16] MEDS: Ipratropium/Albuterol Sulfate 3 ML AMPUL.NEB INHALATION ×3 (07:23→14:15)
[2021-01-16] MEDS: guaiFENesin 1,200 MG Tablet 1200 MG PO ×2 (08:22→21:00)
--- NOTE | 2021-01-16 10:22 | PN_ITS ---
Patient Problems: Active and Suspected Problems (Last Reviewed 01/15/21 @ 00:[address] Reyes Saenz MD) COPD with acute exacerbation (Acute) Hyponatremia (Acute) Elevated troponin (Acute) Infestation by cimex lectularius (Acute) COPD (chronic obstructive pulmonary disease) (Acute) Subjective: Breathing well. Coughing up more phlegm. Vitals/I&O's: Vital Signs Temp Pulse Resp BP Pulse Ox 36.2 C L 75 20 H 140/80 H 97 01/16/21 08:05 01/16/21 08:05 01/16/21 08:05 01/16/21 08:05 01/16/21 08:05 Oxygen Flow Rate (L/min) 2 Oxygen Delivery Method Nasal Cannula Weight: 41.9 kg Body Mass Index (BMI) 15.3 Intake and Output for Last 24 Hours 01/14/21 01/15/21 01/16/21 23:59 23:59 23:59 Intake Total 1863.75 / 1863.75 150 / 150 Output Total 450 / 450 Balance 1413.75 / 1413.75 150 / 150 General: Alert, No apparent distress, - - conversational dyspnea HEENT: Atraumatic, Normocephalic Oral: Moist Mucosa, No Gingival or Mucosal Lesions/ Ulcerations Neck: No Nodes, Thyroid Normal Size and Texture Lungs: Clear to auscultation, Diminished Cardiovascular: Regular rate, Regular Rhythm, Normal S1, Normal S2, No murmurs Abdomen: Bowel Sounds Present, Soft, Non Tender, Non-Distended, No Hepato- splenomegaly Extremities: No edema, No Calf Tenderness Skin: No rashes, No breakdown Musculoskeletal: No Tenderness to Palpation of Joints or Extremities, No Muscle Wasting Neurological: Neuro grossly intact, Muscle tone normal Psych/Mental Status: Normal Affect, Appropriate Microbiology Past 72 Hours 01/14/21 21:30 Mucosa - Nose SARS-CoV-2 Antigen (Rapid) - Final Laboratory Results 01/15/21 10:48: Troponin I 0.637 H* 01/16/21 06:00: WBC 6.7, RBC 3.65 L, Hgb 11.3 L, Hct 33.7 L, MCV 92.3, MCH 31.0, MCHC 33.5, RDW Std Deviation 42.4, RDW Coeff of Ashu 12.4, Plt Count 267, MPV 9.8, Immature Gran % (Auto) 0.400, Neut % (Auto) 81.7 H, Lymph % (Auto) 6.7 L, [place] % (Auto) 11.2 H, Eos % (Auto) 0.0, Baso % (Auto) 0.0, Absolute Neuts (auto) 5.5, Absolute Lymphs (auto) 0.45 L, Nucleated RBC % 0, Differential Comment SCANNED, Acanthocytes (Spur) RARE 01/16/21 06:00: Sodium 127 L, Potassium 3.7, Chloride 90 L, Carbon Dioxide 32.0, Anion Gap 5, BUN 22 H, Creatinine 0.69, Estim Creat Clear Calc 32.65, Est GFR (MDRD) Af Amer 106, Est GFR (MDRD) Non-Af 88, BUN/Creatinine Ratio 31.7 H, Glucose 89, Calcium 8.8, Troponin I 1.200 H*, Triglycerides 67, Cholesterol 163, LDL Cholesterol 82, VLDL Cholesterol 13, HDL Cholesterol 68 01/16/21 06:00: Cortisol Pending Current Medications Acetaminophen (Acetaminophen 325 Mg Tablet) 650 mg PO Q6H PRN PRN PRN Reason: Pain Score 1-10/Temp > 100.7 F Last Admin: 01/15/21 11:20 Dose: 650 mg Documented by: Albuterol Sulfate (Albuterol 2.5 Mg/3 Ml Vial.Neb.) 2.5 mg INHALATION Q2H PRN PRN PRN Reason: Shortness of Breath/Wheezing Last Admin: 01/15/21 01:58 Dose: 2.5 mg Documented by: Albuterol/Ipratropium (Ipratropium/Albuterol Sulfate 3 Ml Ampul.Neb) 3 ml INHALATION Q4HWA.RT [facility] Last Admin: 01/16/21 07:23 Dose: 3 ml Documented by: Enoxaparin Sodium (Enoxaparin 40 Mg/0.4 Ml Syringe) 40 mg SC Q12@0600,1800 [facility] Last Admin: 01/16/21 06:04 Dose: 40 mg Documented by: Guaifenesin (Guaifenesin 1,200 Mg Tablet) 1,200 mg PO BID [facility] Last Admin: 01/16/21 08:22 Dose: 1,200 mg Documented by: Levofloxacin (Levofloxacin 750 Mg Tablet) 750 mg PO Q48H [facility] Stop: 01/19/21 06:01 Last Admin: 01/15/21 05:34 Dose: 750 mg Documented by: Melatonin (Melatonin 3 Mg Tablet) 3 mg PO QHS PRN PRN PRN Reason: INSOMNIA Last Admin: 01/15/21 23:41 Dose: 3 mg Documented by: Methylprednisolone (Methylprednisolone 40 Mg/Ml Vial) 40 mg IV Q8 [facility] Last Admin: 01/16/21 06:04 Dose: 40 mg Documented by: Nutritional Formula (Lactose Free) (Ensure Enlive 120 Ml Liquid) 120 ml PO 4X/DAY [facility] Last Admin: 01/16/21 08:19 Dose: Not Given Documented by: Ondansetron HCl (Ondansetron 4 Mg/2 Ml Vial) 4 mg IV Q8H PRN PRN PRN Reason: NAUSEA/VOMITING Last Admin: 01/15/21 01:51 Dose: 4 mg Documented by: Senna/Docusate Sodium (Senna/Docusate Sodium 1 Tablet) 2 tablet PO BID PRN PRN PRN Reason: Constipation Sodium Chloride (0.9% Saline Lock 10 Ml Syringe) 10 - 40 ml IV UD PRN PRN Reason: SALINE FLUSH Last Admin: 01/16/21 06:04 Dose: 10 ml Documented by: STROKE Vital Signs/Narrative: Vital Signs Temp Pulse Resp BP Pulse Ox 01/16/21 08:05 36.2 C L 75 20 H 140/80 H 97 01/16/21 07:24 79 18 93 01/16/21 07:03 66 Medical Necessity - Tobacco Use Smoking Status: Former smoker Assessment/Plan All Active Problems (Last Reviewed 01/15/21 @ 00:[address] Reyes Saenz MD) COPD with acute exacerbation (Acute) Hyponatremia (Acute) Elevated troponin (Acute) Infestation by cimex lectularius (Acute) COPD (chronic obstructive pulmonary disease) (Acute) JIM (acute kidney injury) (Resolved) GI bleed (Resolved) NSTEMI (non-ST elevated myocardial infarction) (Ruled-out) 75-year-old white female presents with shortness of breath. Found to be in acute exacerbation of COPD but complicated by a non-ST patient myocardial infarction. Troponins have steadily gone up despite treatments. Tentative plan is for left heart catheterization on the . 1. AECOPD ongoing still on oxygen, but at 2l/m plan * continue BDs and methylpred * wean oxygen as able. * Continue with Acapella valve. 2.NSTEMI may be demand, however, troponins have steadily gone up to now 1.2 plan * start therapuetic enoxaparin (already VTE proph dosing of 40 today, will change to BID, because she is on 40kg) * cardiology consult (DW Dr. Avery) * echo * check records from OSH (did patient have intervention?). Pt said it was [place], but listed as [facility] in dc summary. Still waiting on these records. * Plan is for left heart catheterization here on the . * continue therapeutic enoxaparin. * Start aspirin and statin 3. severe protein malnutrition seen by dietary plan: * liberalized regular diet * ensure enlive QID 4. hyponatremia ongoing suspect SIADH TSH normal plan: check cortisol 5. VTE prophylaxis: Anticoagulated Inpatient E&M: [id number] [facility] Hosp L3
--- NOTE | 2021-01-16 10:35 | PCM.PN.CARD ---
Objective: Vital Signs Temp Pulse Resp BP Pulse Ox 97.1 F L 75 20 H 140/80 H 97 01/16/21 08:05 01/16/21 08:05 01/16/21 08:05 01/16/21 08:05 01/16/21 08:05 Oxygen Flow Rate (L/min) 2 Oxygen Delivery Method Nasal Cannula Weight: 92 lb 5.979 oz Body Mass Index (BMI) 15.3 Intake and Output for Last 24 Hours 01/14/21 01/15/21 01/16/21 23:59 23:59 23:59 Intake Total 1863.75 / 1863.75 150 / 150 Output Total 450 / 450 Balance 1413.75 / 1413.75 150 / 150 General: Awake, Alert, Oriented x 3 HEENT: PERRL, EOMI, Sclera Non Icteric Neck: Supple, Good ROM, No Lymph Node Enlargement Lungs: Clear to auscultation, Expiratory Wheezes-Kee Cardiovascular: Regular Rhythm, Normal S1, Normal S2, No Murmurs, No Rubs, No Gallops Abdomen: Bowel Sounds Present, Soft, Non Tender, No HSM, No Organomegaly Extremities: No Cyanosis, No Clubbing, No edema Neurological: No Focal Motor or Sensory Deficit 01/15/21 10:48: Troponin I 0.637 H* 01/16/21 06:00: WBC 6.7, RBC 3.65 L, Hgb 11.3 L, Hct 33.7 L, MCV 92.3, MCH 31.0, MCHC 33.5, Plt Count 267, MPV 9.8, Immature Gran % (Auto) 0.400, Neut % (Auto) 81.7 H, Lymph % (Auto) 6.7 L, [place] % (Auto) 11.2 H, Eos % (Auto) 0.0, Baso % (Auto) 0.0, Absolute Neuts (auto) 5.5, Nucleated RBC % 0 01/16/21 06:00: Sodium 127 L, Potassium 3.7, Chloride 90 L, Carbon Dioxide 32.0, Anion Gap 5, BUN 22 H, Creatinine 0.69, Est GFR (MDRD) Af Amer 106, Est GFR (MDRD) Non-Af 88, BUN/Creatinine Ratio 31.7 H, Glucose 89, Calcium 8.8, Troponin I 1.200 H*, Triglycerides 67, Cholesterol 163, LDL Cholesterol 82, VLDL Cholesterol 13, HDL Cholesterol 68 Rhythm: Sinus rhythm EKG: Nonspecific change ECHO normal LV systolic function and normal LV wall motion Medical Necessity - Tobacco Use Smoking Status: Former smoker Assessment/Plan 85-year-old patient with longstanding history of chronic obstructive pulmonary disease Presented with symptoms shortness of breath Patient denied any symptoms of chest pain today She has elevated cardiac biomarkers/high sensitive troponins 1.2 And also she had cardiac catheterization in June 17 at [place] and has been treated with medical therapy no history of bypass surgery and no history of PCI or stent Assessment and plan;. 1. The echocardiographic evaluation showed LV function is preserved 2. Currently patient on medical therapy with low-dose aspirin, carvedilol, lisinopril and atorvastatin 3. She had evidence of elevated high sensitive troponins with a clinical diagnosis of non-ST elevation AK and had a history of cardiac catheterization in May Based on the plan history, with clinical diagnosis of non-STEMI I recommend further evaluation with left heart cath. 4. Risk and benefits of the procedure explained in detail and will schedule for cardiac catheterization in the morning.
[2021-01-16] MEDS: Aspirin 325 MG Tablet PO (10:48)
[2021-01-16] MEDS: Atorvastatin Calcium 40 MG Tablet PO (21:00)
[2021-01-17] VITALS (29 sets, daily range): BP systolic 120–165; BP diastolic 57–106; PULSE 72–92; RESP 16–24; TEMP 36.4–36.8; O2SAT 91–100
[2021-01-17] MEDS: Albuterol 2.5 MG/3 ML VIAL.NEB. INHALATION (02:53)
[2021-01-17 05:29] LABS: Absolute Lymphocyte Count 0.32 X10^3/uL (0.83-4.51); Absolute Neutrophil Count 6.1 X10^3/uL (2.0-7.7); Hematocrit 34.2 % (37-47); Hemoglobin 11.4 g/dL (12.0-15.0); Lymphocyte # 0.32 X10^3/ul (4.0); Lymphocyte % 4.5 % (19-41); Mean Corp Hgb Conc 33.3 g/dL (32-36); Mean Corpuscular Hgb 31.2 pg (27.0-32.0); Mean Corpuscular Volume 93.7 fL (81-99); Mean Platelet Vol. 9.9 fl (6.2-12.0); Monocyte# 0.68 X10^3/uL; Monocyte% 9.5 % (0-10); NRBC Flagged by Analyzer 0 % (0-5); Neutrophil # 6.14 X10^3/uL (2.7-7.7); Neutrophil % 85.7 % (47-70); POSITIVE DIFFERENTIAL YES; Platelet Count 290 K/mm3 (150-450); RBC Distribution Width CV 12.7 % (11.6-14.6); RBC Distribution Width SD 43.7 fl (35.1-43.9); Red Blood Count 3.65 M/mm3 (4.2-5.4); White Blood Count 7.2 K/mm3 (4.4-11.0)
[2021-01-17] MEDS: levoFLOXacin 750 MG Tablet PO (05:35)
[2021-01-17] MEDS: Aspirin 81 MG TAB.CHEW PO (05:35)
[2021-01-17 05:39] LABS: Differential Indicated SCAN CRITERIA MET
[2021-01-17 05:46] LABS: Anion Gap 6 (5-15); BUN 25 mg/dL (7-18); BUN/Creat Ratio 41.5 RATIO (10-20); Calcium,Total 8.4 mg/dL (8.5-10.1); Chloride 89 mmol/L (98-107); EST Glomerular Filtration Rate 103 mL/min (>60); Est Glom Filt Rate - Afr Amer 125 mL/min (>60); Estimated Creatinine Clearance 32.65 ml/min; Glucose 113 mg/dL (74-106); Potassium 3.6 mmol/L (3.5-5.1); Sodium Level 127 mmol/L (136-145)
--- NOTE | 2021-01-17 05:55 | EKG12_ITS ---
Test Reason : AM EKG Blood Pressure : / mmHG Vent. Rate : 072 BPM Atrial Rate : 072 BPM P-R Int : 102 ms QRS Dur : 078 ms QT Int : 396 ms P-R-T Axes : 080 076 074 degrees QTc Int : 433 ms Sinus rhythm with short [place] Otherwise normal ECG When compared with ECG of 14-JAN-2021 21:48, MANUAL COMPARISON REQUIRED, DATA IS UNCONFIRMED Confirmed by CHIKA CEJA, YOLY ([id number]), senior editor CATHERINE CARBAJAL ([id number]) on 01/18/2021 9:08:10 AM Referred By: HERIBERTO Confirmed By:YOLY FARR MD
[2021-01-17] MEDS: Ipratropium/Albuterol Sulfate 3 ML AMPUL.NEB INHALATION ×3 (06:39→19:12)
--- NOTE | 2021-01-17 06:51 | NURSING ---
This RN called and spoke with HATTIE Jacobson, patients son regarding patients heart cath time. Kavon had called and spoken with BHUMI Rendon and was upset that we did not have a time for patients heart cath so that he could be here. This RN reiterated the fact that we did not receive times for caths as the cath schedule can change. This RN offered to allow Kavon up prior to visiting hours to stay with pt in anticipation of heart cath but Kavon declined. Kavon stated that an RN on the previous day said that this shift makes the schedule so he was upset that he was given incorrect information. This RN again apologized profusely and ensured that the oncoming RN and charge would be aware of the situation. In the end Kavon was agreeable to getting a call once cath lab radiological technologist called for him to be present when pt was out of cath lab radiological technologist.
[2021-01-17 09:38] LABS: Bacteria 0 SEEN /hpf (None Seen); Mucous, Urine 0 SEEN /hpf (<or=2+); Red Blood Cells-Urine 0 SEEN /hpf (0-5)
[2021-01-17 09:45] LABS: Color, Urine Yellow (Yellow); Glucose, Dipstick Normal (Normal); Ketone-Dipstick Negative (Negative); Leukocyte Esterase-Dipstick 25 /ul (Negative); Nitrite-Dipstick Negative (Negative); Occult Blood-Urine 10 /ul (Negative); Protein-Dipstick Negative (Negative); Urine Bilirubin Dipstick Negative (Negative); Urine Clarity Sl. Cloudy (Clear); Urine Urobilinogen Normal (Normal)
[2021-01-17 09:55] LABS: Squamous Epithelial Cells - UA 5-10 SEEN /hpf (5-10); White Blood Cells 0-5 SEEN /hpf (0-5)
[2021-01-17 09:56] LABS: Amorphous Sediment 1+
--- NOTE | 2021-01-17 11:42 | CL.D_ITS ---
Patient Name: FLORY ALBERTO Study Date: 01/17/2021 Performing: Lyndon Perea MD Ht: 65 inches 165 cm : 1945 Wt: 92.7 lbs 42 kg Age: 75 Gender: female BSA: 1.43 PROCEDURE(S) PERFORMED OH55-OJG/COR/LV CLINICAL PROFILE AND INDICATIONS Indications: Suspected CAD Heart Failure: None Stress/Imaging Stress/Image Study Performed: No CAD Presentations: Symptom unlikely to be ischemic. CONCLUSIONS Non obstructive coronary arteries RECOMMENDATIONS Medical therapy DESCRIPTION OF PROCEDURE The patient arrived to the procedure lab. The risks and benefits of the procedure as well as a full d escription of our services here and current unavailability of surgical backup were fully explained to the patient and/or their significant other prior to the catheterization. The Timeout was completed, verifying the correct patient and procedure. The patient's procedural site was prepped and draped in the usual fashion. Local anesthetic was given subcutaneously to right radial region with Lidocaine 2% . Using a modified Seldinger technique, arterial access was obtained via the right radial artery, a 6 Fr sheath was inserted. Left Coronary Artery selective angiography was performed in multiple views u sing a 5 Fr. 4.0 Felt catheter. Right Coronary Artery selective angiography was then performed in mu ltiple views using a 5 Fr. 4.0 Felt catheter. Left Ventriculography was performed in PINO projection using a 5 Fr. Pigtail catheter. LV to AO pullback pressures were then recorded.The arterial sheath was pulled and a TR Band was applied for hemostasis w/ 11ml CORONARY ANGIOGRAPHY DOMINANCE: Right Dominant LEFT HEART ASSESSMENT Left Ventricular Ejection Fraction: by LV Gram 65 % Normal LV wall motion Normal Left Ventricular systolic function LEFT MAIN: Angiographically normal LEFT ANTERIOR DESCENDING ARTERY: MID LAD: 50 % Stenosis CIRCUMFLEX ARTERY: No significant disease noted RIGHT CORONARY ARTERY: No significant disease noted COMPLICATIONS No Complications PROCEDURE MEDICATIONS Versed 1 mg IV Fentanyl 50 mcg IV Oxygen: 2 L/min via nasal cannula Heparin diluted in 23cc Heparinized saline. Patient given 10cc IA of this solution. 01/17/2021 11:22: 08 Verapamil 2.5mg, Ntg 100mcgs, 2000 units of Heparin diluted in 23cc Heparinized saline. Patient give n 10cc IA of this solution. 01/17/2021 11:22:08 SUMMARY OF HEMODYNAMIC DATA Time AIR REST ECG 10:37:19 AO 116/63 (83) SA 11:24:52 LV 131/-2, 11 11:29:14 LV 94/-2, 1 11:29:21 LV 134/-2, 3 11:29:36 LV 141/3, 9 11:30:14 LVp 131/1, 6 11:30:18 AOp 141/61 (93) 11:30:23 Signed By Lyndon Perea MD On 01/17/2021 11:41:36 Lyndon Perea MD
--- NOTE | 2021-01-17 11:43 | PN.CARD_ITS ---
Subjectve: Patient seen and evaluated. Objective: Vital Signs Temp Pulse Resp BP Pulse Ox 97.7 F L 92 18 145/72 H 97 01/17/21 06:40 01/17/21 06:55 01/17/21 06:40 01/17/21 06:40 01/17/21 06:40 Oxygen Flow Rate (L/min) 2 Oxygen Delivery Method Nasal Cannula Weight: 92 lb 5.979 oz Body Mass Index (BMI) 15.3 Intake and Output for Last 24 Hours 01/15/21 01/16/21 01/17/21 23:59 23:59 23:59 Intake Total 1863.75 / 1863.75 630 / 750 120 / 120 Output Total 450 / 450 Balance 1413.75 / 1413.75 630 / 750 120 / 120 General: Awake, Alert, Oriented x 3 HEENT: PERRL, EOMI, Sclera Non Icteric Neck: Supple, Good ROM, No Lymph Node Enlargement Lungs: Clear to auscultation Cardiovascular: Regular Rhythm, Normal S1, Normal S2, No Murmurs, No Rubs, No Gallops Vascular: No Carotid Bruits, Normal Femoral Pulses, Normal Radial Pulses, Normal Dorsalis Pedal Pulse, Normal Posterior Tibial Pulses Abdomen: Bowel Sounds Present, Soft, Non Tender, No HSM, No Organomegaly Extremities: No Cyanosis, No Clubbing, No edema Musculoskeletal: No Erythema Neurological: No Focal Motor or Sensory Deficit 01/17/21 04:48: WBC 7.2, RBC 3.65 L, Hgb 11.4 L, Hct 34.2 L, MCV 93.7, MCH 31.2, MCHC 33.3, Plt Count 290, MPV 9.9, Immature Gran % (Auto) 0.300, Neut % (Auto) 85.7 H, Lymph % (Auto) 4.5 L, [place] % (Auto) 9.5, Eos % (Auto) 0.0, Baso % (Auto) 0.0, Absolute Neuts (auto) 6.1, Nucleated RBC % 0 01/17/21 04:48: Sodium 127 L, Potassium 3.6, Chloride 89 L, Carbon Dioxide 32.0, Anion Gap 6, BUN 25 H, Creatinine 0.60, Est GFR (MDRD) Af Amer 125, Est GFR (MDRD) Non-Af 103, BUN/Creatinine Ratio 41.5 H, Glucose 113 H, Calcium 8.4 L 01/17/21 09:30: Urine Color Yellow, Urine Clarity Sl. Cloudy, Urine pH 7.0, Ur Specific [place] 1.010, Urine Protein Negative, Urine Glucose (UA) Normal, Urine Ketones Negative, Urine Occult Blood 10 H, Urine Nitrite Negative, Urine Bilirubin Negative, Urine Urobilinogen Normal, Ur Leukocyte Esterase 25 H, Urine RBC 0 SEEN, Urine WBC 0-5 SEEN Rhythm: EKG: ECHO: Stress Test: Cardiac Cath: PCI: CT Surgery: Holter monitor: EPS: PPM: CXR: Chest CT Scan: Medical Necessity - Tobacco Use Smoking Status: Former smoker Assessment/Plan 1. Abnormal cardiac enzymes * Patient presented with significant shortness of breath and abnormal cardiac enzymes. Underwent cardiac catheterization which demonstrated the following: * Normal left main coronary artery * Left anterior descending artery with mid 50% stenosis * Left circumflex artery with no significant stenosis * Dominant right coronary artery with no significant stenosis * Preserved left ventricular systolic function * * Based on the above angiographic findings it appears that the cardiac enzyme leak was secondary to demand ischemia. No significant obstructive coronary disease lesions are noted. We will continue with aggressive medical therapy. * Patient can be discharged from my standpoint. * * Thank you for allowing me to participate in the care of your patient. Please don't hesitate to call if any issues arise.
[2021-01-17] MEDS: Acetaminophen 325 MG Tablet 650 MG PO (12:32)
[2021-01-17] MEDS: guaiFENesin 1,200 MG Tablet 1200 MG PO ×2 (12:32→21:35)
--- NOTE | 2021-01-17 14:32 | CASEMGMT ---
LW/Healthcare POA forms both scanned into summary tab of [facility], son Jose Bhandari is listed as healthcare POA. SUDARSHAN Rm
--- NOTE | 2021-01-17 15:46 | PCM.PN.HOSP ---
Patient Problems: Active and Suspected Problems (Last Updated 01/17/21 @ 13:06 by Mana Reeves) COPD with acute exacerbation (Acute) Hyponatremia (Acute) Elevated troponin (Acute) Infestation by annie hines (Acute) NSTEMI (non-ST elevated myocardial infarction) (Acute 01/14/21) 05/05/2020, 01/14/21 Subjective: Patient initially reports she feels well overall. States she just had a breathing treatment. I do note that she is struggling a little bit with her respiratory status which makes me believe that this is chronic since she is reporting she feels okay. Her son is at bedside and states that she is having intermittent coldness and what almost seems like hot flashes that she had when she was newly postmenopausal. She is currently on 2 L nasal cannula and was sent home on this at discharge last Sunday. On discharge her ambulatory pulse ox was 93% on 2 L and her resting pulse ox was 98% on 2 L nasal cannula. She had a heart catheterization done today secondary to an elevated troponin and no intervention was required. She is anxious to go home. Vitals/I&O's: Vital Signs Temp Pulse Resp BP Pulse Ox 97.6 F L 85 20 H 126/85 H 99 01/17/21 11:55 01/17/21 15:00 01/17/21 15:00 01/17/21 13:55 01/17/21 13:55 Oxygen Flow Rate (L/min) 1 Oxygen Delivery Method Nasal Cannula Weight: 41.9 kg Body Mass Index (BMI) 15.3 Intake and Output for Last 24 Hours 01/15/21 01/16/21 01/17/21 23:59 23:59 23:59 Intake Total 1863.75 / 1863.75 630 / 750 480 / 480 Output Total 450 / 450 Balance 1413.75 / 1413.75 630 / 750 480 / 480 General: Alert, Oriented x3, Cooperative, No apparent distress, Well developed, Well nourished, - - Thin white female sitting up in bed, appears malnourished, mild respiratory distress, son at bedside HEENT: Atraumatic, PERRLA, EOMI, Normocephalic, EAC Clear Oral: Moist Mucosa, No Gingival or Mucosal Lesions/ Ulcerations, - - Poor dentition, Mallampati 1, no thrush noted Neck: Supple, No JVD, Negative Carotid Bruits, Negative Hepatojugular Reflux, No Nodes, No Nuchal Rigidity, Trachea Midline, Thyroid Normal Size and Texture Lungs: No rhonchi, No rales, Diminished - Jody diffuse, Wheezes - Scattered end expiratory Cardiovascular: Regular rate, Regular Rhythm, Normal S1, Normal S2, No murmurs, No Ectopic Activity, No rub noted, No Gallop Abdomen: Bowel Sounds Present, Soft, Non Tender, Non-Distended, - - Thin Extremities: No clubbing, No cyanosis, No edema, Capillary Refill Less than 3 Seconds, Peripheral Pulses Normal Skin: No rashes, No breakdown Musculoskeletal: No Tenderness to Palpation of Joints or Extremities, Arthritic Changes, Cachexia, Muscle Wasting Lymphatic: No Cervical, Supraclavicular, or Inguinal Adenopathy Neurological: Cranial nerves II-XII grossly intact, Neuro grossly intact, Muscle tone normal, Sensory exam intact to light touch and pain, Coordination normal, - - Generalized weakness proximal greater than distal Psych/Mental Status: Normal Affect, Appropriate Microbiology Past 72 Hours 01/14/21 21:30 Mucosa - Nose SARS-CoV-2 Antigen (Rapid) - Final Laboratory Results 01/16/21 06:00: Cortisol 5.30 01/17/21 04:48: WBC 7.2, RBC 3.65 L, Hgb 11.4 L, Hct 34.2 L, MCV 93.7, MCH 31.2, MCHC 33.3, RDW Std Deviation 43.7, RDW Coeff of Ashu 12.7, Plt Count 290, MPV 9.9, Immature Gran % (Auto) 0.300, Neut % (Auto) 85.7 H, Lymph % (Auto) 4.5 L, [place] % (Auto) 9.5, Eos % (Auto) 0.0, Baso % (Auto) 0.0, Absolute Neuts (auto) 6.1, Absolute Lymphs (auto) 0.32 L, Nucleated RBC % 0 01/17/21 04:48: Sodium 127 L, Potassium 3.6, Chloride 89 L, Carbon Dioxide 32.0, Anion Gap 6, BUN 25 H, Creatinine 0.60, Estim Creat Clear Calc 32.65, Est GFR (MDRD) Af Amer 125, Est GFR (MDRD) Non-Af 103, BUN/Creatinine Ratio 41.5 H, Glucose 113 H, Calcium 8.4 L 01/17/21 09:30: Urine Color Yellow, Urine Clarity Sl. Cloudy, Urine pH 7.0, Ur Specific [place] 1.010, Urine Protein Negative, Urine Glucose (UA) Normal, Urine Ketones Negative, Urine Occult Blood 10 H, Urine Nitrite Negative, Urine Bilirubin Negative, Urine Urobilinogen Normal, Ur Leukocyte Esterase 25 H, Urine RBC 0 SEEN, Urine WBC 0-5 SEEN, Ur Squamous Epith Cells 5-10 SEEN, Amorphous Sediment 1+, Urine Bacteria 0 SEEN, Urine Mucus 0 SEEN Current Medications Acetaminophen (Acetaminophen 325 Mg Tablet) 650 mg PO Q6H PRN PRN PRN Reason: Pain Score 1-10/Temp > 100.7 F Last Admin: 01/17/21 12:32 Dose: 650 mg Documented by: Albuterol Sulfate (Albuterol 2.5 Mg/3 Ml Vial.Neb.) 2.5 mg INHALATION Q2H PRN PRN PRN Reason: Shortness of Breath/Wheezing Last Admin: 01/17/21 02:53 Dose: 2.5 mg Documented by: Albuterol/Ipratropium (Ipratropium/Albuterol Sulfate 3 Ml Ampul.Neb) 3 ml INHALATION Q4HWA.RT [facility] Last Admin: 01/17/21 15:00 Dose: 3 ml Documented by: Aspirin (Aspirin 81 Mg Tab.Chew) 81 mg PO DAILY@0800 [facility] Last Admin: 01/17/21 05:35 Dose: 81 mg Documented by: Atorvastatin Calcium (Atorvastatin Calcium 40 Mg Tablet) 40 mg PO QHS [facility] Last Admin: 01/16/21 21:00 Dose: 40 mg Documented by: Enoxaparin Sodium (Enoxaparin 40 Mg/0.4 Ml Syringe) 40 mg SC Q12@0600,1800 [facility] Last Admin: 01/17/21 05:22 Dose: Not Given Documented by: Guaifenesin (Guaifenesin 1,200 Mg Tablet) 1,200 mg PO BID [facility] Last Admin: 01/17/21 12:32 Dose: 1,200 mg Documented by: Levofloxacin (Levofloxacin 750 Mg Tablet) 750 mg PO Q48H [facility] Stop: 01/19/21 06:01 Last Admin: 01/17/21 05:35 Dose: 750 mg Documented by: Melatonin (Melatonin 3 Mg Tablet) 3 mg PO QHS PRN PRN PRN Reason: INSOMNIA Last Admin: 01/15/21 23:41 Dose: 3 mg Documented by: Nutritional Formula (Lactose Free) (Ensure Enlive 120 Ml Liquid) 120 ml PO 4X/DAY [facility] Last Admin: 01/17/21 12:32 Dose: 120 ml Documented by: Ondansetron HCl (Ondansetron 4 Mg/2 Ml Vial) 4 mg IV Q8H PRN PRN PRN Reason: NAUSEA/VOMITING Last Admin: 01/15/21 01:51 Dose: 4 mg Documented by: Prednisone (Prednisone 20 Mg Tablet) 40 mg PO DAILY@0800 [facility] Senna/Docusate Sodium (Senna/Docusate Sodium 1 Tablet) 2 tablet PO BID PRN PRN PRN Reason: Constipation Sodium Chloride (0.9% Saline Lock 10 Ml Syringe) 10 - 40 ml IV UD PRN PRN Reason: SALINE FLUSH Last Admin: 01/16/21 21:00 Dose: 10 ml Documented by: STROKE Vital Signs/Narrative: Vital Signs Temp Pulse Resp BP Pulse Ox 01/17/21 15:00 85 20 H 01/17/21 14:57 76 01/17/21 13:55 79 20 H 126/85 H 99 01/17/21 13:40 72 18 120/66 97 01/17/21 13:25 73 18 130/63 H 99 01/17/21 13:10 74 20 H 133/73 H 94 01/17/21 12:55 77 20 H 149/73 H 100 01/17/21 12:40 82 20 H 141/60 H 94 01/17/21 12:25 79 20 H 164/69 H 95 01/17/21 12:10 78 20 H 133/66 H 97 01/17/21 11:55 97.6 F L 82 20 H 133/86 H 95 Medical Necessity - Tobacco Use Smoking Status: Former smoker Assessment/Plan All Active Problems (Last Updated 01/17/21 @ 13:06 by Mana Reeves) COPD with acute exacerbation (Acute) Hyponatremia (Acute) Elevated troponin (Acute) Infestation by cimex lectularius (Acute) NSTEMI (non-ST elevated myocardial infarction) (Acute 01/14/21) Cardiomyopathy (Resolved) Acute exacerbation of COPD -Covid was negative -Viral respiratory panel was negative at previous admission -Check urine antigens -Continue supplemental oxygen as needed patient is currently on 1 L but oxygen saturations dropped into the mid 80s therefore nasal cannula was increased to 2 L -Wean as able -Continue Levaquin -Continue steroids -Continue Mucinex -New aggressive pulmonary toilet -Restart home Trelegy Ellipta -Echo shows mild RV dilation and grade 1 diastolic dysfunction with an EF of 55 to 60% -Check noncontrasted CT of chest with persistent hypoxia -No contrast given catheterization today -Consider pulmonary consult if hypoxia is persistent with no improvement -We will need pulmonary follow-up after discharge with outpatient PFTs when symptomatically better NSTEMI -Cardiac catheterization done today -Showed normal left main, LAD with 50% stenosis, left circumflex with no stenosis, and RCA no significant stenosis -Continue home Coreg 3.125 -Continue aspirin -Restart home lisinopril -Cardiology has signed off and patient is okay from their standpoint for discharge -Suspect any demand ischemia related to hypoxia -Follow-up with cardiology after discharge Hyponatremia -This appears to be chronic since 2014 -Close to baseline -TSH was within normal limits -Cortisol within normal limits -Would recommend further outpatient work-up--> question SIADH -CT of chest pending Intermittent hot flashes -We will check CT of chest -TSH was within normal limits -Cortisol was within normal limits -States she had them with menopause but they have ceased and now return Severe malnutrition -Continue liberal diet -Continue Ensure 4 times a day COPD with current tobacco abuse -See above -Last cigarette was approximately 3 weeks ago -Continue with cessation -Pulmonary out patient follow-up Hyperlipidemia -Continue atorvastatin 20 mg nightly Hypertension -Restart lisinopril today 5 mg -Restart carvedilol 3.125 mg twice daily today -Trend blood pressure Neuropathy -Continue gabapentin DVT prophylaxis -Enoxaparin 40 mg twice daily CODE STATUS -Full code Inpatient E&M: 37713 [facility] Hosp L3
--- NOTE | 2021-01-17 15:56 | CT_ITS ---
STUDY: CT CHEST WITHOUT CONTRAST REASON FOR EXAM: Female, 75 years old. Hypoxia RADIATION DOSAGE (If Supplied By Facility): CTDIvol = ( 6.81 ) mGy, DLP = ( 260.53 ) mGycm TECHNIQUE: Transaxial imaging was performed without the administration of intravenous contrast material. Individualized dose optimization techniques were used for this CT. COMPARISON: 11/05/2019. FINDINGS: Marked hyperexpansion of the lungs consistent with severe centrilobular emphysema. Findings are grossly stable. Stable mild bilateral apical scarring. There is a noncalcified nodule in the mid right lateral lung currently measuring 6 mm, and previously approximately 5 mm. This will need follow-up. Scattered small foci of probable pulmonary scarring such as in the mid lateral left lung, axial image 82, are stable. No infiltrates. No effusions. Normal heart and pericardium. There are calcifications of the coronary arteries. Normal mediastinum. Normal hilar regions. Normal unenhanced pulmonary arteries. There is atherosclerotic calcification of the aortic arch with tortuosity and elongation of the aortic arch and descending thoracic aorta. There are multi-level degenerative changes of the thoracic spine. There is no demonstrated acute abnormality of the visualized upper abdomen. CT/Chest without Contrast IMPRESSION: Severe COPD. No infiltrates. 6 mm noncalcified nodule in the right upper lobe. Recommend follow-up in 6-12 months. Electronically Signed: Elliott Soliz MD at 16:50 EDT , Service support ,
--- NOTE | 2021-01-17 16:02 | NURSING ---
RESTAURANT ATTENDANT in room with patient and notified this RN that pt was pushing off of bed with right arm. RESTAURANT ATTENDANT states she noted blood to right radial dressing. CHarge nurse notified and in room. Removed old dressing and applied pressure with 2x2.
--- NOTE | 2021-01-17 16:03 | NURSING ---
TR band reapplied and hemodialysis technician in room to visualize, states hemostasis - 1435. Tech in contact with Dr Perea and orders from Dr Perea to wait one hour from new hemostasis time to start removing air from TR band.
[2021-01-17] MEDS: Atorvastatin Calcium 40 MG Tablet PO (21:35)
[2021-01-17] MEDS: Lisinopril 5 MG Tablet PO (21:43)
[2021-01-17] MEDS: Carvedilol 3.125 MG TABLET PO (21:43)
[2021-01-17] MEDS: traZODone 50 MG Tablet PO (21:43)
[2021-01-17] MEDS: Gabapentin 300 MG Capsule 600 MG PO (21:43)
[2021-01-18] VITALS (12 sets, daily range): BP systolic 108–132; BP diastolic 51–74; PULSE 65–81; RESP 16–20; TEMP 36.4–36.6; O2SAT 78–96
[2021-01-18 06:26] LABS: Anion Gap 2 (5-15); BUN 22 mg/dL (7-18); BUN/Creat Ratio 32.7 RATIO (10-20); Calcium,Total 8.2 mg/dL (8.5-10.1); Chloride 92 mmol/L (98-107); Creatinine, Serum 0.67 mg/dL (0.55-1.02); EST Glomerular Filtration Rate 91 mL/min (>60); Est Glom Filt Rate - Afr Amer 110 mL/min (>60); Estimated Creatinine Clearance 32.65 ml/min; Glucose 78 mg/dL (74-106); Potassium 3.6 mmol/L (3.5-5.1); Sodium Level 130 mmol/L (136-145)
[2021-01-18] MEDS: Ipratropium/Albuterol Sulfate 3 ML AMPUL.NEB INHALATION ×3 (07:05→14:48)
[2021-01-18] MEDS: predniSONE 20 MG Tablet 40 MG PO (08:51)
[2021-01-18] MEDS: Carvedilol 3.125 MG TABLET PO (08:51)
[2021-01-18] MEDS: guaiFENesin 1,200 MG Tablet 1200 MG PO (08:51)
[2021-01-18] MEDS: Aspirin 81 MG TAB.CHEW PO (08:51)
[2021-01-18] MEDS: Enoxaparin 40 MG/0.4 ML Syringe SC (08:54)
--- NOTE | 2021-01-18 09:01 | PN.CARD_ITS ---
Subjectve: Patient seen and evaluated. Appears to be doing better. Objective: Vital Signs Temp Pulse Resp BP Pulse Ox 97.5 F L 75 20 H 130/74 H 96 01/18/21 05:56 01/18/21 07:05 01/18/21 07:05 01/18/21 05:56 01/18/21 07:05 Oxygen Flow Rate (L/min) 2 Oxygen Delivery Method Room Air Weight: 92 lb 5.979 oz Body Mass Index (BMI) 15.3 Intake and Output for Last 24 Hours 01/16/21 01/17/21 01/18/21 23:59 23:59 23:59 Intake Total 630 / 750 920 / 1120 500 / 500 Output Total 200 / 200 Balance 630 / 750 920 / 1120 300 / 300 General: Awake, Alert, Oriented x 3 HEENT: PERRL, EOMI, Sclera Non Icteric Neck: Supple, Good ROM, No Lymph Node Enlargement Lungs: Clear to auscultation Cardiovascular: Regular Rhythm, Normal S1, Normal S2, No Murmurs, No Rubs, No Gallops 01/17/21 09:30: Urine Color Yellow, Urine Clarity Sl. Cloudy, Urine pH 7.0, Ur Specific [place] 1.010, Urine Protein Negative, Urine Glucose (UA) Normal, Urine Ketones Negative, Urine Occult Blood 10 H, Urine Nitrite Negative, Urine Bilirubin Negative, Urine Urobilinogen Normal, Ur Leukocyte Esterase 25 H, Urine RBC 0 SEEN, Urine WBC 0-5 SEEN 01/18/21 05:52: Sodium 130 L, Potassium 3.6, Chloride 92 L, Carbon Dioxide 36.0 H, Anion Gap 2 L, BUN 22 H, Creatinine 0.67, Est GFR (MDRD) Af Amer 110, Est GFR (MDRD) Non-Af 91, BUN/Creatinine Ratio 32.7 H, Glucose 78, Calcium 8.2 L Rhythm: EKG: ECHO: Stress Test: Cardiac Cath: PCI: CT Surgery: Holter monitor: EPS: PPM: CXR: Chest CT Scan: Medical Necessity - Tobacco Use Smoking Status: Former smoker Assessment/Plan 1. Abnormal cardiac enzymes * Patient presented with significant shortness of breath and abnormal cardiac enzymes. Underwent cardiac catheterization which demonstrated the following: * Normal left main coronary artery * Left anterior descending artery with mid 50% stenosis * Left circumflex artery with no significant stenosis * Dominant right coronary artery with no significant stenosis * Preserved left ventricular systolic function * * Based on the above angiographic findings it appears that the cardiac enzyme leak was secondary to demand ischemia. No significant obstructive coronary disease lesions are noted. We will continue with aggressive medical therapy. * Patient can be discharged from my standpoint. * * Thank you for allowing me to participate in the care of your patient. Please don't hesitate to call if any issues arise.
--- NOTE | 2021-01-18 12:47 | PCM.DC ---
- Discharge Diagnoses Current Active Problems: Current Active and Chronic Problems (Last Updated 01/17/21 @ 13:06 by Mana Reeves) COPD with acute exacerbation (Acute) Hyponatremia (Acute) Elevated troponin (Acute) Infestation by cimex lectularius (Acute) COPD (chronic obstructive pulmonary disease) (Chronic) Protein calorie malnutrition (Chronic) NSTEMI (non-ST elevated myocardial infarction) (Acute 01/14/21) 05/05/2020, 01/14/21 Cardiac dysrhythmia (Chronic) Neurogenic bowel (Chronic) Neurogenic bladder (Chronic) HLD (hyperlipidemia) (Chronic) You will use the following diet at home:: No restrictions, Other - Supplements 4 x daily Your food should be the consistency of: Regular Your liquids should be the consistency of: Regular/Thin Discharge Activity: Return to Normal Activity Allergies/Adverse Reactions: Allergies Sulfa (Sulfonamide Antibiotics) Allergy (Verified 01/14/21 21:16) FACE GETS RED AND ITCHY codeine Adverse Reaction (Verified 01/14/21 21:16) Nausea Medications to take at Discharge Albuterol Sulfate [Ventolin Hfa] 1 - 2 puff INHALATION Q4H PRN 11/26/17 Gabapentin [Neurontin] 600 mg PO QHS 11/26/17 Albuterol Aerosols [Ventolin Aerosols] 2.5 mg INHALATION Q2H PRN PRN #1 box 11/28/17 Fluticasone/Umeclidin/Vilanter [Trelegy Ellipta 100-62.5-25] 1 puff IH DAILY 10/16/18 Trazodone HCl 50 mg PO QHS PRN PRN 10/30/19 Atorvastatin Calcium 20 mg PO QHS 06/27/20 Carvedilol 3.125 mg PO BID 06/27/20 Aspirin 81 mg PO DAILY 01/11/21 Lisinopril 5 mg PO QHS 01/11/21 Aspirin [Aspirin, Baby] 81 mg PO DAILY@0800 tab.chew 01/18/21 Ensure Enlive 120 ml PO 4X/DAY #120 liquid 01/18/21 Guaifenesin [Mucinex] 1,200 mg PO BID #60 tablet 01/18/21 Prednisone 10 mg PO DAILY #40 tablet 01/18/21 levoFLOXacin tablet [Levaquin tablet] 750 mg PO DAILY 3 Days #3 tablet 01/18/21 The following prescriptions were given: Ensure Enlive 120 ml PO 4X/DAY #120 liquid Transmission Status: Pending to [id number] levoFLOXacin tablet [Levaquin tablet] 750 mg PO DAILY 3 Days #3 tablet Transmission Status: Pending to [facility] Guaifenesin [Mucinex] 1,200 mg PO BID #60 tablet Transmission Status: Pending to [id number] Prednisone 10 mg PO DAILY #40 tablet Prescription Printed Primary Care Physician: Matt Peace MD [Primary Care Provider] - Please follow up with your Primary Care Physician in: 1 week-call for an appt on day of discharge Test Results: Test results from this visit will be discussed in further detail at your follow-up appointment, if applicable. Please Follow Up With: Karthik Soto MD - 6 mm pulm nodule and COPD When: 1-2 weeks
--- NOTE | 2021-01-18 13:28 | DS.PCM_ITS ---
Discharge Date and Diagnosis - Problem List Patient Problems: Active and Suspected Problems (Last Updated 01/17/21 @ 13:06 by Mana Reeves) COPD with acute exacerbation (Acute) Hyponatremia (Acute) Elevated troponin (Acute) Infestation by cimex lectularius (Acute) NSTEMI (non-ST elevated myocardial infarction) (Acute 01/14/21) 05/05/2020, 01/14/21 Date of Admission: 01/15/21 Date of Discharge: 01/18/21 - Primary Discharge Diagnosis Acute Problems: Active Problems (Last Updated 01/17/21 @ 13:06 by Mana Reeves) COPD with acute exacerbation (Acute) Hyponatremia (Acute) Elevated troponin (Acute) Infestation by cimex lectularius (Acute) NSTEMI (non-ST elevated myocardial infarction) (Acute 01/14/21) 05/05/2020, 01/14/21 - Secondary Discharge Diagnosis Chronic Problems: Chronic Problems (Last Updated 01/17/21 @ 13:06 by Mana Reeves) Nonobstructive atherosclerosis of coronary artery (Chronic) Essential (primary) hypertension (Chronic) COPD (chronic obstructive pulmonary disease) (Chronic) Protein calorie malnutrition (Chronic) Cardiac dysrhythmia (Chronic) Neurogenic bowel (Chronic) Neurogenic bladder (Chronic) HLD (hyperlipidemia) (Chronic) Hospital Course and Treatment Imaging Results: STUDY: X-RAY CHEST REASON FOR EXAM: Female, 75 years old. sob TECHNIQUE: Single AP portable view of the chest. COMPARISON: 01/11/2021 FINDINGS: There is hyperinflation of the lungs consistent with chronic obstructive lung disease (COPD). Lungs are clear. Likely left lung base multiple shadow. There is no demonstrated pleural abnormality. Normal size heart. Normal mediastinum and marco antonio. Normal visualized pulmonary arteries. Normal visualized aortic arch and descending thoracic aorta. Normal visualized thoracic spine. Normal visualized ribs, clavicles, and shoulders. There is no demonstrated abnormality of the visualized soft tissue structures of the upper abdomen. RAD/Chest 1 View (Portable) IMPRESSION: COPD without acute findings Reason For Study: Elevated Troponins Procedure This was a 2D Doppler, Color Flow transthoracic echocardiogram. Technically difficult due to patients body habitus. Exam performed portable in patient room. Left Ventricle Normal left ventricle. The estimated ejection fraction is EF 55-60% %. Right Ventricle Mildly dilated right ventricle. Atria The right atrium is mildly enlarged. Mitral Valve The mitral papillary muscle appears thickened and/or calcified. Trivial mitral valve insufficiency. Tricuspid Valve Normal tricuspid valve. Aortic Valve The aortic valve is not well visualized. Normal aortic valve. Pulmonic Valve The pulmonic valve is not well visualized. Great Vessels Normal aortic root. No collapse of the inferior vena cava. Pericardium/Pleural No pericardial effusion. MMode/2D Measurements & Calculations LVIDd: 3.1 cm IVSd: 0.84 cm LA dimension: 3.2 cm LVIDs: 2.5 cm LVPWd: 0.95 cm RVDd: 2.5 cm FS: 20.0 % _ LAV(MOD-bp): 28.7 ml LA A4 area: 17.7 cm2 RA A4 area: 6.5 cm2 LAV(MOD-bp) Indexed: 20.2 ml/m2 LAV(MOD-sp2): 13.5 ml LAV(MOD-sp4): 54.2 ml Time Measurements MV dec time: 0.30 sec Doppler Measurements & Calculations MV E max j luis: 68.7 cm/sec Lat Peak E' J Luis: 7.9 cm/sec Med Peak E' J Luis: 4.8 cm/sec MV A max j luis: 92.5 cm/sec E/E' lat: 8.7 E/E' med: 14.2 MV E/A: 0.74 _ MV V2 max: 124.9 cm/sec MV P1/2t max j luis: 96.4 cm/sec Ao V2 max: 131.4 cm/sec MV max P.2 mmHg MV P1/2t: 68.6 msec Ao max P.9 mmHg MV V2 mean: 60.0 cm/sec MV dec slope: 411.7 cm/sec2 MV mean P.8 mmHg MVA(P1/2t): 3.2 cm2 MV V2 VTI: 27.3 cm _ LV V1 max: 109.2 cm/sec MR max j luis: 662.0 cm/sec PA V2 max: 129.5 cm/sec LV V1 max P.8 mmHg MR max P.3 mmHg _ TR max j luis: 322.2 cm/sec TR max P.5 mmHg Interpretation Summary The estimated ejection fraction is EF 55-60% %. Mild RV dilatation Grade #I diastolic Dysfunction STUDY: CT CHEST WITHOUT CONTRAST REASON FOR EXAM: Female, 75 years old. Hypoxia RADIATION DOSAGE (If Supplied By Facility): CTDIvol = ( 6.81 ) mGy, DLP = ( 260.53 ) mGycm TECHNIQUE: Transaxial imaging was performed without the administration of intravenous contrast material. Individualized dose optimization techniques were used for this CT. COMPARISON: 11/05/2019. FINDINGS: Marked hyperexpansion of the lungs consistent with severe centrilobular emphysema. Findings are grossly stable. Stable mild bilateral apical scarring. There is a noncalcified nodule in the mid right lateral lung currently measuring 6 mm, and previously approximately 5 mm. This will need follow-up. Scattered small foci of probable pulmonary scarring such as in the mid lateral left lung, axial image 82, are stable. No infiltrates. No effusions. Normal heart and pericardium. There are calcifications of the coronary arteries. Normal mediastinum. Normal hilar regions. Normal unenhanced pulmonary arteries. There is atherosclerotic calcification of the aortic arch with tortuosity and elongation of the aortic arch and descending thoracic aorta. There are multi-level degenerative changes of the thoracic spine. There is no demonstrated acute abnormality of the visualized upper abdomen. CT/Chest without Contrast IMPRESSION: Severe COPD. No infiltrates. 6 mm noncalcified nodule in the right upper lobe. Recommend follow-up in 6-12 months. Cardiology Operations: None Procedures: 2-D Echocardiogram, Cardiac catheterization Summary of Care Provided: Ms. Lee is a 75 year old WF with a past medical history that is significant for severe COPD and current tobacco abuse presented to the emergency department on 01/15/2021 with progressively worsening shortness of breath that started approximately 1 week prior to presentation. She had recent admission from 01/11/2021 until 01/14/2021 but return to the emergency department within 24 hours of discharge. At the time of readmission she was complaining of worsening shortness of breath since discharge and sputum productive of yellow-green sputum. She also had a headache upon presentation. Oxygen saturations in the emergency department without oxygen were 86%. She was discharged on oxygen from the previous admission at 2 L nasal cannula. I suspect with the severity of her baseline lung function that this will likely be a chronic issue and requirement for her at this time. Cardiology was consulted secondary to an elevated troponin with a peak troponin of 1.2. A cardiac catheterization was recommended and was performed on 01/17/2023 and showed a normal left main artery, and LAD with 50% stenosis, left circumflex with no significant stenosis, dominant RCA with no significant stenosis, and a preserved LVEF. With the normal cardiac catheterization it is suspected that her troponin elevation was due to demand ischemia secondary to hypoxia. Of note the patient has been noncompliant intermittently with her oxygen at home. I did address this with her during her hospitalization and indicated that this is likely going to be a chronic need for her based on the severity of her lung disease and she voiced understanding at that time. She was treated with a steroid taper, pulmonary toilet, and Levaquin for suspected pneumonia. A CT scan of her chest was performed and showed no pne umonia on CT but did show severe centrilobular emphysematous changes, pulmonary scarring, and a 6 mm noncalcified right lateral lung nodule. This was compared with previous imaging on 11/05/2019 and the nodule has increased in size by 1 mm. When I addressed this with the patient she states she follows with Dr. Soto and he has been following her with CAT scans. She has chronic stable hyponatrem ia and her sodium at discharge was 130 which is close to her baseline. She will complete a 7-day course of Levaquin and was discharged with a prescription for completion. She was also discharged with a slow prednisone taper starting with 40 mg for 5 days and decreasing by 10 mg every 5 days. Scripts were sent to her pharmacy. He is to continue her home albuterol scheduled and as needed and her Trelegy Ellipta. She is to follow-up with her director emergency in 1 to 3 weeks and follow-up with her PCP in 1 week. I suggested she call after discharge to make appointments with both physicians. Prior to discharge she was stable with oxygen saturations in the mid 90s on 2 L of oxygen at rest but did require 7 L with exertion. I suspect with the severity of her lung disease she would qualify for hospice but patient is not ready at this point. Discharge diagnoses Acute on chronic hypoxic respiratory failure secondary to acute exacerbation of COPD NSTEMI type 2 secondary to demand ischemia Severe COPD Chronic hyponatremia Infestation by cimex lectularius Stage I diastolic dysfunction Hypertension Hyperlipidemia Neuropathy Severe malnutrition Ongoing tobacco abuse Right middle lobe 6 mm pulmonary nodule Discharge time greater than 35 minutes Patient Problems: Active and Suspected Problems (Last Updated 01/17/21 @ 13:06 by Mana Reeves) COPD with acute exacerbation (Acute) Hyponatremia (Acute) Elevated troponin (Acute) Infestation by cimex lectularius (Acute) NSTEMI (non-ST elevated myocardial infarction) (Acute 01/14/21) 05/05/2020, 01/14/21 Subjective: Patient states she is feeling much better today and is anxious to go home. We discussed the importance of continued oxygen wearing and she agrees and understand that this will likely be a chronic requirement. - Physical Exam Vitals/I&O's: Vital Signs Temp Pulse Resp BP Pulse Ox 97.5 F L 75 18 108/51 L 94 01/18/21 13:08 01/18/21 13:08 01/18/21 13:08 01/18/21 13:08 01/18/21 13:08 Oxygen Flow Rate (L/min) 2 Oxygen Delivery Method Nasal Cannula Weight: 41.9 kg Body Mass Index (BMI) 15.3 Intake and Output for Last 24 Hours 01/16/21 01/17/21 01/18/21 23:59 23:59 23:59 Intake Total 630 / 750 920 / 1120 980 / 980 Output Total 350 / 350 Balance 630 / 750 920 / 1120 630 / 630 General: Alert, Oriented x3, Cooperative, No apparent distress, Well developed, Well nourished, - - Cachectic elderly female who appears much older than stated age, lying in bed, appears comfortable, nontoxic no current respiratory distress HEENT: Atraumatic, EOMI Oral: Moist Mucosa, No Gingival or Mucosal Lesions/ Ulcerations, - - Poor dentition, no thrush Neck: Supple, No Nodes, No Nuchal Rigidity, Trachea Midline, Thyroid Normal Size and Texture Lungs: No rhonchi, No rales, Diminished - Severely-diffuse, Wheezes - Scattered end expiratory, less harsh than yesterday Cardiovascular: Regular rate, Regular Rhythm, Normal S1, Normal S2, No Ectopic Activity, Murmur, No rub noted, No Gallop Abdomen: Bowel Sounds Present, Soft, Non Tender, Non-Distended, - - Thin Extremities: No clubbing, No cyanosis, No edema, Capillary Refill Less than 3 Seconds, Peripheral Pulses Normal Skin: No rashes, No breakdown Musculoskeletal: No Tenderness to Palpation of Joints or Extremities, No Muscle Wasting, Arthritic Changes Lymphatic: No Cervical, Supraclavicular, or Inguinal Adenopathy Neurological: Cranial nerves II-XII grossly intact, Neuro grossly intact, - - Marked generalized weakness Psych/Mental Status: Normal Affect, Appropriate Microbiology Past 72 Hours 01/17/21 09:30 Urine, Clean Catch Legionella Antigen - Final 01/17/21 09:30 Urine, Clean Catch Streptococcus pneumoniae Antigen (M - Final Laboratory Results 01/18/21 05:52: Sodium 130 L, Potassium 3.6, Chloride 92 L, Carbon Dioxide 36.0 H, Anion Gap 2 L, BUN 22 H, Creatinine 0.67, Estim Creat Clear Calc 32.65, Est GFR (MDRD) Af Amer 110, Est GFR (MDRD) Non-Af 91, BUN/Creatinine Ratio 32.7 H, Glucose 78, Calcium 8.2 L Current Medications Acetaminophen (Acetaminophen 325 Mg Tablet) 650 mg PO Q6H PRN PRN PRN Reason: Pain Score 1-10/Temp > 100.7 F Last Admin: 01/17/21 12:32 Dose: 650 mg Documented by: Albuterol Sulfate (Albuterol 2.5 Mg/3 Ml Vial.Neb.) 2.5 mg INHALATION Q2H PRN PRN PRN Reason: Shortness of Breath/Wheezing Last Admin: 01/17/21 02:53 Dose: 2.5 mg Documented by: Albuterol/Ipratropium (Ipratropium/Albuterol Sulfate 3 Ml Ampul.Neb) 3 ml INHALATION Q4HWA.RT MORALES Last Admin: 01/18/21 10:54 Dose: 3 ml Documented by: Aspirin (Aspirin 81 Mg Tab.Chew) 81 mg PO DAILY@0800 [facility] Last Admin: 01/18/21 08:51 Dose: 81 mg Documented by: Atorvastatin Calcium (Atorvastatin Calcium 40 Mg Tablet) 40 mg PO QHS [facility] Last Admin: 01/17/21 21:35 Dose: 40 mg Documented by: Carvedilol (Carvedilol 3.125 Mg Tablet) 3.125 mg PO BID [facility] Last Admin: 01/18/21 08:51 Dose: 3.125 mg Documented by: Enoxaparin Sodium (Enoxaparin 40 Mg/0.4 Ml Syringe) 40 mg SC DAILY [facility] Last Admin: 01/18/21 08:54 Dose: 40 mg Documented by: Gabapentin (Gabapentin 300 Mg Capsule) 600 mg PO QHS [facility] Last Admin: 01/17/21 21:43 Dose: 600 mg Documented by: Guaifenesin (Guaifenesin 1,200 Mg Tablet) 1,200 mg PO BID [facility] Last Admin: 01/18/21 08:51 Dose: 1,200 mg Documented by: Levofloxacin (Levofloxacin 750 Mg Tablet) 750 mg PO Q48H [facility] Stop: 01/19/21 06:01 Last Admin: 01/17/21 05:35 Dose: 750 mg Documented by: Lisinopril (Lisinopril 5 Mg Tablet) 5 mg PO QHS [facility] Last Admin: 01/17/21 21:43 Dose: 5 mg Documented by: Melatonin (Melatonin 3 Mg Tablet) 3 mg PO QHS PRN PRN PRN Reason: INSOMNIA Last Admin: 01/15/21 23:41 Dose: 3 mg Documented by: Nutritional Formula (Lactose Free) (Ensure Enlive 120 Ml Liquid) 120 ml PO 4X/DAY [facility] Last Admin: 01/18/21 08:52 Dose: 120 ml Documented by: Ondansetron HCl (Ondansetron 4 Mg/2 Ml Vial) 4 mg IV Q8H PRN PRN PRN Reason: NAUSEA/VOMITING Last Admin: 01/15/21 01:51 Dose: 4 mg Documented by: Prednisone (Prednisone 20 Mg Tablet) 40 mg PO DAILY@0800 [facility] Last Admin: 01/18/21 08:51 Dose: 40 mg Documented by: Senna/Docusate Sodium (Senna/Docusate Sodium 1 Tablet) 2 tablet PO BID PRN PRN PRN Reason: Constipation Sodium Chloride (0.9% Saline Lock 10 Ml Syringe) 10 - 40 ml IV UD PRN PRN Reason: SALINE FLUSH Last Admin: 01/16/21 21:00 Dose: 10 ml Documented by: Trazodone HCl (Trazodone 50 Mg Tablet) 50 mg PO QHS PRN PRN PRN Reason: SLEEP Last Admin: 01/17/21 21:43 Dose: 50 mg Documented by: Discharge Activity: Return to Normal Activity Home Medications: Medications to take at Discharge Albuterol Sulfate [Ventolin Hfa] 1 - 2 puff INHALATION Q4H PRN 11/26/17 Gabapentin [Neurontin] 600 mg PO QHS 11/26/17 Albuterol Aerosols [Ventolin Aerosols] 2.5 mg INHALATION Q2H PRN PRN #1 box 11/28/17 Fluticasone/Umeclidin/Vilanter [Trelegy Ellipta 100-62.5-25] 1 puff IH DAILY 10/16/18 Trazodone HCl 50 mg PO QHS PRN PRN 10/30/19 Atorvastatin Calcium 20 mg PO QHS 06/27/20 Carvedilol 3.125 mg PO BID 06/27/20 Aspirin 81 mg PO DAILY 01/11/21 Lisinopril 5 mg PO QHS 01/11/21 Aspirin [Aspirin, Baby] 81 mg PO DAILY@0800 tab.chew 01/18/21 Ensure Enlive 120 ml PO 4X/DAY #120 liquid 01/18/21 Guaifenesin [Mucinex] 1,200 mg PO BID #60 tablet 01/18/21 Prednisone 10 mg PO DAILY #40 tablet 01/18/21 levoFLOXacin tablet [Levaquin tablet] 750 mg PO DAILY 3 Days #3 tablet 01/18/21 Following Prescriptions Were Given to Patient: Ensure Enlive 120 ml PO 4X/DAY #120 liquid Transmission Status: Received by [facility] [id number] levoFLOXacin tablet [Levaquin tablet] 750 mg PO DAILY 3 Days #3 tablet Transmission Status: Received by [id number] Guaifenesin [Mucinex] 1,200 mg PO BID #60 tablet Transmission Status: Received by [id number] Prednisone 10 mg PO DAILY #40 tablet Prescription Printed Primary Care Physician: Matt Peace MD [Primary Care Provider] - Please follow up with your Primary Care Physician in: 1 week-call for an appt on day of discharge Please Follow Up With: Karthik Soto MD - 6 mm pulm nodule and COPD When: 1-2 weeks Medical Necessity - Tobacco Use Smoking Status: Former smoker Meaningful Use Info Meaningful Use Diagnoses (Choose all that apply): None applicable Inpatient E&M: [id number] [facility]
--- NOTE | 2021-01-18 14:25 | CASEMGMT ---
Addendum entered by Shira Daily 01/18/21 16:29: Ramirez TRIPATHI aware that pt needs new concentrator set up at home for discharge as she needs 7L w/ exertion and pt's current concentrator only goes to 5L. Galina TRIPATHI CM Original Note: Pt updated on need for new order to [facility] for home oxygen and this RN CM reiterated that pt needs 2L at all times while at rest and 7L with any exertion/ambulation, pt voices understanding. Pt is tachypnic with accessory muscle use lying in bed on 2L at this time. Pt asks 'So I am going to be on this the rest of my life?' Advised pt that she most likely would due to severe COPD noted on CT scan, voices understanding. This RN CM did discuss palliative care and their ability to assist with symptoms/SOB and pt would like palliative referral sent to [facility] palliative at this time. Pt is concerned about having to go somewhere to see them and this RN CM advised her that they can come to her home, voices understanding. Referral faxed and call to Yuki at Palliative at this time and notified that pt will be discharging today, voices understanding. New order obtained for [employer], faxed, and call to Laura at [facility] to notify of need for larger concentrator for pt and pt to discharge today, voices understanding. Advised pt to have Ramirez TRIPATHI or katelynn RN CM come to speak with son, if he has any questions once he arrives, voices understanding. Galina TRIPATHI CM
--- NOTE | 2021-01-18 16:12 | PHA.DC.MC ---
Pharmacy Service has performed discharge medication reconciliation and counseling for this patient. 1. MUCINEX 1200MG PO BID 2. PREDNISONE 40MG PO DAILY X 5 DAYS, THEN 30MG X 5 DAYS, THEN 20MG X 5 DAYS, THEN 10MG X 5 DAYS 3. LEVOFLOXACIN 750MG PO DAILY X 3 DAYS The patient's discharge medication list was reviewed for discrepancies and discrepancies were resolved. This [facility] spoke to Dr. Edwards regarding quantity written for prednisone. Patient needs #50 but was written for #40. Patient should have 20mg tablets at home from previous admission which she was use for the 5 20mg days. Home Medications Albuterol Sulfate [Ventolin Hfa] 1 - 2 puff INHALATION Q4H PRN 11/26/17 Gabapentin [Neurontin] 600 mg PO QHS 11/26/17 Albuterol Aerosols [Ventolin Aerosols] 2.5 mg INHALATION Q2H PRN PRN #1 box 11/28/17 Fluticasone/Umeclidin/Vilanter [Trelegy Ellipta 100-62.5-25] 1 puff IH DAILY 10/16/18 Trazodone HCl 50 mg PO QHS PRN PRN 10/30/19 Atorvastatin Calcium 20 mg PO QHS 06/27/20 Carvedilol 3.125 mg PO BID 06/27/20 Aspirin 81 mg PO DAILY 01/11/21 Lisinopril 5 mg PO QHS 01/11/21 Ensure Enlive 120 ml PO 4X/DAY #120 liquid 01/18/21 Guaifenesin [Mucinex] 1,200 mg PO BID #60 tablet 01/18/21 Prednisone 10 mg PO DAILY #40 tablet 01/18/21 levoFLOXacin tablet [Levaquin tablet] 750 mg PO DAILY 3 Days #3 tablet 01/18/21 The patient was counseled on the following discharge medications and changes in medications for homegoing were reviewed. The Reason for Use, instructions for use, and potential side effects were reviewed for all new medications. The patient's questions regarding all of their medications were answered. The patient was able to verbally demonstrate an understanding of their discharge medications.
--- NOTE | 2021-01-19 10:45 | NURSING ---
RNCM DC F/u Call: Discharge Date: 01.18.21 Discharge Diagnosis: COPD with acute exacerbation (Acute), Hyponatremia (Acute), Elevated troponin (Acute), Infestation by jackieex mattularius (Acute), NSTEMI (non-ST elevated myocardial infarction) (Acute 01/14/21) 05/05/2020, 01/14/21 Discharge Disposition: Home Lace/Strata: 08/02 Called patient listed cell number, patient answered and this copy writer introduced self and role. Patient states that she is doing about the same. Confirmed received DC Home medications and denies any issues, concerns, or questions. States that she could use an aide to assist with bathing as she does not prefer her son's to help. Has not made a DC f/u appointment with her PCP yet- encouraged her to call and make it and ask for a referral for an aide. Patient did have Palliative care referral placed per primary RNCM note. Denies any further issues or concerns, thanked patient for seeking care at [facility] and conversation ended. KUSHAL Allen
== END 2021-01-18 16:59 | disposition home or self-care (01) | DRG 190 ==
LOC: ED 23:37 → MS3 23:48 → PCU 01-17 07:15
PROVIDERS: Admitting Provider Hospitalist; Emergency Provider Emergency Medicine; PCP Family Medicine; Visit Provider Internal Medicine
DX: J44.1 Chronic obstructive pulmonary disease with (acute) exacerbation (principal); I21.A1 Myocardial infarction type 2; J96.21 Acute and chronic respiratory failure with hypoxia; E43 Unspecified severe protein-calorie malnutrition; E87.1 Hypo-osmolality and hyponatremia; Z68.1 Body mass index [BMI] 19.9 or less, adult; N39.0 Urinary tract infection, site not specified; I10 Essential (primary) hypertension; E78.5 Hyperlipidemia, unspecified; G62.9 Polyneuropathy, unspecified; R91.1 Solitary pulmonary nodule; Z99.81 Dependence on supplemental oxygen; Z79.899 Other long term (current) drug therapy; Z79.51 Long term (current) use of inhaled steroids; I73.9 Peripheral vascular disease, unspecified; N95.1 Menopausal and female climacteric states; Z91.19 Patient's noncompliance with other medical treatment and regimen; F17.200 Nicotine dependence, unspecified, uncomplicated
CPT/HCPCS: 36415; 71045; 71250; 80048; 80053; 80061; 81001; 82533; 83605; 83880; 83930; 83935; 84300; 84443; 84484; 85025; 87040; 87077; 87086; 87088; 87426; 87449; 87633; 93005; 93306; 93458; 94640; 94667; 94668; 97110; 97162; 97166; 97530; 97535; 97802; 99152; 99153; 99251; 99285; J7030; J7050; Q9957; Q9967; A4216; C1769; C1894; G0463; J2405

== ENCOUNTER 2021-02-14 14:54 | Observation (INO) | payer MEDICARE, OTHER, SELFPAY ==
[2021-01-15 09:29] VITALS: BMI 15.3
[2021-02-14] VITALS (9 sets, daily range): BP systolic 112–153; BP diastolic 50–73; PULSE 63–74; RESP 14–20; TEMP 36.2–36.9; O2SAT 95–100; BMI 14.6; BMI 17.2
--- NOTE | 2021-02-14 15:05 | EKG12_ITS ---
Test Reason : SOB Blood Pressure : / mmHG Vent. Rate : 071 BPM Atrial Rate : 071 BPM P-R Int : 120 ms QRS Dur : 076 ms QT Int : 372 ms P-R-T Axes : 079 077 074 degrees QTc Int : 404 ms Normal sinus rhythm Normal ECG Confirmed by DECLAN CEJA, GERBER ([id number]), editor map JAY FALK ([id number]) on 02/16/2021 1:04:54 PM Referred By: ALLEN Confirmed By:GERBER MANRIQUEZ MD
--- NOTE | 2021-02-14 15:06 | ED.DCSUM_ITS ---
History of Present Illness Chief Complaint: Shortness of Breath Informant: Patient Narrative: 75-year-old female presenting for evaluation of leg swelling. She states it is bilateral. She states she said swelling for over a month but has been worse over the last few days. Patient has recent hospitalization for NSTEMI and had a negative cardiac catheterization and her echocardiogram was okay. Patient was discharged home with prednisone. Patient denies having to change her oxygen settings. She states she has chronic shortness of breath which is unchanged. She has a mild cough which is not new. She denies chest pain. She denies a history of congestive heart failure. Patient has been checking her pulse ox at home and it has not dropped below 97. Patient's states that she was given instructions to come to the emergency room to rule out congestive heart failure. - Past Medical History (1) Nonobstructive atherosclerosis of coronary artery Status: Chronic (2) Essential (primary) hypertension Status: Chronic (3) Hyponatremia Status: Chronic (4) COPD (chronic obstructive pulmonary disease) Status: Chronic Past Medical History - Allergies and Home Meds Allergies/Adverse Reactions: Allergies Sulfa (Sulfonamide Antibiotics) Allergy (Verified 02/14/21 14:58) FACE GETS RED AND ITCHY codeine Adverse Reaction (Verified 02/14/21 14:58) Nausea Prior records reviewed: Yes Surgical History: cholecystectomy, hysterectomy, - - spinal surgery Lives: With Family Smoking Status: Former smoker Alcohol: None Drugs: None - Family History Maternal Family History: Family History (Last Reviewed 01/15/21 @ 00:[address] Reyes Saenz MD) Father Kidney disease Sister Breast cancer Sister Cancer Family History: Reports: Heart Disease Paternal Family History: Family History (Last Reviewed 01/15/21 @ 00:[address] Reyes Saenz MD) Father Kidney disease Sister Breast cancer Sister Cancer Family History: Reports: Renal Disease Review of Systems General: Denies: Chills, Fever, Sweats Eyes: Denies: Visual changes - bilaterally, Diplopia ENT: Denies: Rhinorrhea, Sore throat Cardiovascular: Denies: Chest pain, Palpitations Respiratory: Denies: Dyspnea, Cough, Dyspnea on exertion Gastrointestinal: Denies: Abdominal pain, Nausea, Vomiting, Diarrhea, Melena, Hematochezia Genitourinary: Denies: Dysuria, Hematuria, Frequency Musculoskeletal: Reports: Swelling - Bilateral lower extremity edema Skin: Denies: Rash, Wounds Neurological: Denies: Headache, Weakness, Numbness Psych: Denies: Depression, Anxiety, Suicidal thoughts, Suicidal ideations, -, - Endocrine: Denies: Polyuria, Polydipsia, Heat intolerance, Cold intolerance, -, - Physical Exam Vital Signs/Narrative: Vital Signs Temp Pulse Resp BP Pulse Ox 02/14/21 14:55 97.3 F L 67 14 112/69 100 Inital Vital Signs reviewed: Yes General: Well nourished, No Acute Distress Head: Normocephalic, Atraumatic Eyes: Perrl, EOMI ENT: Moist mucous membranes, No rhinorrhea Cardiovascular: Regular rate, Regular rhythm Respiratory: No distress, CTA bilaterally, Chest nontender Extremities: Tenderness - Bilateral lower extremity edema. Skin: Normal color, No rash Neurological: Alert, Oriented x3 Psychological: Normal affect, Normal Mood Diagnostic/Tx/Re-eval Clinical Impression(s) from Imaging Studies Chest X-Ray 02/14/21 15:43 IMPRESSION: The lungs are hyperaerated. Right pleural effusion with basilar focal infiltrate/atelectasis. Electronically Signed: Isaac Almanza DO at 16:55 EDT Tel [phone], Service support , Chest CTA 02/14/21 17:00 IMPRESSION: 1. No pulmonary embolism or arterial dissection. 2. Airspace disease in the right lower lobe suspicious for pneumonia. Mild opacities in the right middle lobe and left lower lobe. Follow-up is strongly recommended after a complete course of therapy to exclude underlying malignancy. 3. Stable to minimally increased right upper lobe nodule. Options for further evaluation include three-month follow-up or PET scan following resolution of acute symptoms. 4. Bilateral pleural effusions. 5. Stable hepatic hypodensity. Electronically Signed: Adriana Fagan MD at 18:15 EDT Tel , Service support , Laboratory Data 02/14/21 02/14/21 02/14/21 15:35 15:35 15:35 WBC 9.0 RBC 3.10 L Hgb 9.5 L Hct 31.8 L MCV 102.6 H MCH 30.6 MCHC 29.9 L RDW Std Deviation 50.8 H RDW Coeff of Ashu 13.6 Plt Count 332 MPV 9.0 Immature Gran % (Auto) 0.600 Neut % (Auto) 89.8 H Lymph % (Auto) 4.9 L [place] % (Auto) 3.6 Eos % (Auto) 0.9 Baso % (Auto) 0.2 Absolute Neuts (auto) 8.1 H Absolute Lymphs (auto) 0.44 L Nucleated RBC % 0 Differential Comment SCANNED D-Dimer Quant (PE/DVT) 2.09 H* Sodium 134 L Potassium 4.6 Chloride 97 L Carbon Dioxide 35.0 H Anion Gap 2 L BUN 17 Creatinine 0.84 Estim Creat Clear Calc 37.10 Est GFR (MDRD) Af Amer 85 Est GFR (MDRD) Non-Af 70 BUN/Creatinine Ratio 20.1 H Glucose 97 Calcium 8.3 L Magnesium Troponin I < 0.015 B-Natriuretic Peptide 02/14/21 02/14/21 15:35 15:35 WBC RBC Hgb Hct MCV MCH MCHC RDW Std Deviation RDW Coeff of Ashu Plt Count MPV Immature Gran % (Auto) Neut % (Auto) Lymph % (Auto) [place] % (Auto) Eos % (Auto) Baso % (Auto) Absolute Neuts (auto) Absolute Lymphs (auto) Nucleated RBC % Differential Comment D-Dimer Quant (PE/DVT) Sodium Potassium Chloride Carbon Dioxide Anion Gap BUN Creatinine Estim Creat Clear Calc Est GFR (MDRD) Af Amer Est GFR (MDRD) Non-Af BUN/Creatinine Ratio Glucose Calcium Magnesium 2.1 Troponin I B-Natriuretic Peptide 344.4 H - Medical Decision Making 75-year-old female presenting with lower extremity swelling. She does admit to some shortness of breath but feels it is chronic. Her son states that she has a new cough and seems a little more dyspneic. She has not had to increase her oxygen at baseline. She states she sleeps flat. Patient is not having any chest pain. Patient EKG performed on arrival which is sinus rhythm at 71 bpm as interpreted by myself. Chest x-ray shows small right pleural effusion without any acute process interpreted by myself and radiology does agree. Lab work shows no leukocytosis. Hemoglobin is at 9.5 and previously 11.4 about a month ago. Hemoccult negative. BNP is elevated at 344. This was also normal on her last admission. I reviewed the medical record and noted that she had a normal cardiac cath as well as a fairly normal echocardiogram. Troponin is negative. Patient's D-dimer was elevated and therefore she had CTA of the chest which shows bilateral pleural effusions as well as concern for bilateral infiltrates. Patient was discussed with the hospitalist for admission who requested that we give Zosyn down in the ED and she will test her for MRSA and hold off on vancomycin currently. She was also given 40 mg of Lasix IV. Impression: 1. Dyspnea 2. Anemia 3. Bilateral pleural effusions 4. Hospital-acquired pneumonia ED Disposition - Plan for ED Patient: Disposition: Acute Care Hospital [facility]
--- NOTE | 2021-02-14 15:43 | RAD_ITS ---
STUDY: X-RAY CHEST REASON FOR EXAM: Female, 75 years old. Dyspnea TECHNIQUE: Frontal view COMPARISON: None. FINDINGS: The lungs are hyperaerated. Right pleural effusion with basilar focal infiltrate/atelectasis. Normal size heart. Normal mediastinum and marco antonio. Normal visualized pulmonary arteries. Normal visualized aortic arch and descending thoracic aorta. Normal visualized thoracic spine. Status post surgical fusion at the lower cervical levels. Calcified ribs, clavicles, and shoulders. There is no demonstrated abnormality of the visualized soft tissue structures of the upper abdomen. RAD/Chest 1 View (Portable) IMPRESSION: The lungs are hyperaerated. Right pleural effusion with basilar focal infiltrate/atelectasis. Electronically Signed: Isaac Almanza DO at 16:55 EDT Tel [phone], Service support ,
[2021-02-14 15:49] LABS: Absolute Lymphocyte Count 0.44 X10^3/uL (0.83-4.51); Absolute Neutrophil Count 8.1 X10^3/uL (2.0-7.7); Basophil# 0.02 X10^3/uL; Basophil% 0.2 % (0-1); Eosinophil# 0.08 X10^3/uL; Eosinophils% 0.9 % (0-5); Hematocrit 31.8 % (37-47); Hemoglobin 9.5 g/dL (12.0-15.0); Lymphocyte # 0.44 X10^3/ul (0.83-4.51); Lymphocyte % 4.9 % (19-41); Mean Corp Hgb Conc 29.9 g/dL (32-36); Mean Corpuscular Hgb 30.6 pg (27.0-32.0); Mean Corpuscular Volume 102.6 fL (81-99); Monocyte# 0.32 X10^3/uL; Monocyte% 3.6 % (0-10); NRBC Flagged by Analyzer 0 % (0-5); Neutrophil # 8.06 X10^3/uL (2.7-7.7); Neutrophil % 89.8 % (47-70); POSITIVE DIFFERENTIAL YES; Platelet Count 332 K/mm3 (150-450); RBC Distribution Width CV 13.6 % (11.6-14.6); RBC Distribution Width SD 50.8 fl (35.1-43.9)
[2021-02-14 15:52] LABS: Differential Indicated SCAN CRITERIA MET
--- NOTE | 2021-02-14 16:04 | HP.PCM_ITS ---
History of Present Illness Date of Admission: 02/14/21 Chief Complaint: Dyspnea, edema, increased O2 usage The patient is a 75 y/o F w/ PMHx: Chronic COPD w/ Chronic Hypoxic Respiratory Failure, HTN, HLD, Hx NSTEMI, Work-up in the ED included T 97.3, heart 67, BP 112/69, respiratory rate 20, 96% on 2 L nasal cannula, Macrocytic anemia: Admission hemoglobin 9.5, previously Past Medical History Past Medical History (Chronic Problems): Chronic Problems (Last Updated 01/17/21 @ 13:06 by Mana Reeves) Nonobstructive atherosclerosis of coronary artery (Chronic) Essential (primary) hypertension (Chronic) Hyponatremia (Chronic) COPD (chronic obstructive pulmonary disease) (Chronic) Protein calorie malnutrition (Chronic) Cardiac dysrhythmia (Chronic) Neurogenic bowel (Chronic) Neurogenic bladder (Chronic) HLD (hyperlipidemia) (Chronic) Medical History: Medical History (Last Updated 01/17/21 @ 13:06 by Mana Reeves) Nonobstructive atherosclerosis of coronary artery (Chronic) I25.10 Essential (primary) hypertension (Chronic) I10 COPD with acute exacerbation (Acute) J44.1 Hyponatremia (Chronic) E87.1 Elevated troponin (Acute) R77.8 Infestation by cimex lectularius (Acute) B88.8 COPD (chronic obstructive pulmonary disease) (Chronic) J44.9 Protein calorie malnutrition (Chronic) E46 NSTEMI (non-ST elevated myocardial infarction) (Acute) Onset Date: 01/14/21 I21.4 05/05/2020, 01/14/21 Cardiac dysrhythmia (Chronic) I49.9 Neurogenic bowel (Chronic) K59.2 Neurogenic bladder (Chronic) N31.9 HLD (hyperlipidemia) (Chronic) E78.5 COPD (chronic obstructive pulmonary disease) J44.9 JIM (acute kidney injury) N17.9 GI bleed K92.2 Guaiac positive stools (Inactive) R19.5 Allergies Sulfa (Sulfonamide Antibiotics) Allergy (Verified 02/14/21 14:58) FACE GETS RED AND ITCHY codeine Adverse Reaction (Verified 02/14/21 14:58) Nausea Home Medications: Ambulatory Orders Medication Instructions Recorded Albuterol Sulfate [Ventolin Hfa] 1 - 2 puff INHALATION Q4H PRN 11/26/17 Gabapentin [Neurontin] 600 mg PO QHS 11/26/17 Albuterol Aerosols [Ventolin 2.5 mg INHALATION Q2H PRN PRN #1 11/28/17 Aerosols] box Fluticasone/Umeclidin/Vilanter 1 puff IH DAILY 10/16/18 [Trelegy Ellipta 100-62.5-25] Trazodone HCl 50 mg PO QHS PRN PRN 10/30/19 Atorvastatin Calcium 20 mg PO QHS 06/27/20 Carvedilol 3.125 mg PO BID 06/27/20 Aspirin 81 mg PO DAILY 01/11/21 Lisinopril 5 mg PO QHS 01/11/21 Ensure Enlive 120 ml PO 4X/DAY #120 liquid 01/18/21 Guaifenesin [Mucinex] 1,200 mg PO BID #60 tablet 01/18/21 Prednisone 10 mg PO DAILY #40 tablet 01/18/21 Surgical History: Surgical History (Last Updated 01/17/21 @ 13:02 by Mana Reeves) History of back surgery Z98.890 History of breast lump removal Z98.890 History of hysterectomy Z90.710 History of left heart catheterization (LHC) Onset Date: 01/17/21 Z98.890 normal coronaries per cath 06/02/20, 01/17/21 Surgical History: cholecystectomy, hysterectomy, - - spinal surgery Psychiatric History: No 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 Reyes Saenz MD) Father Kidney disease Sister Breast cancer Sister Cancer History Items: Heart Disease Paternal Family History: Family History (Last Reviewed 01/15/21 @ 00:[address] Reyes Saenz MD) Father Kidney disease Sister Breast cancer Sister Cancer History Items: Renal Disease - Physical Exam Vitals/I&O's: Vital Signs Temp Pulse Resp BP Pulse Ox 97.3 F L 63 20 H 112/69 96 02/14/21 14:55 02/14/21 15:39 02/14/21 15:39 02/14/21 14:55 02/14/21 15:39 Oxygen Flow Rate (L/min) 2 Oxygen Delivery Method Nasal Cannula Weight: 88 lb 2.958 oz Body Mass Index (BMI) 14.6 Laboratory Results 02/14/21 15:35: WBC 9.0, RBC 3.10 L, Hgb 9.5 L, Hct 31.8 L, MCV 102.6 H, MCH 30.6, MCHC 29.9 L, RDW Std Deviation 50.8 H, RDW Coeff of Ashu 13.6, Plt Count 332, MPV 9.0, Immature Gran % (Auto) 0.600, Neut % (Auto) 89.8 H, Lymph % (Auto) 4.9 L, [place] % (Auto) 3.6, Eos % (Auto) 0.9, Baso % (Auto) 0.2, Absolute Neuts (auto) 8.1 H, Absolute Lymphs (auto) 0.44 L, Nucleated RBC % 0 02/14/21 15:35: D-Dimer Quant (PE/DVT) Pending 02/14/21 15:35: Sodium Pending, Potassium Pending, Chloride Pending, Carbon Dioxide Pending, Anion Gap Pending, BUN Pending, Creatinine Pending, Est GFR (MDRD) Af Amer Pending, Est GFR (MDRD) Non-Af Pending, BUN/Creatinine Ratio Pending, Glucose Pending, Calcium Pending, Troponin I Pending 02/14/21 15:35: B-Natriuretic Peptide Pending Assessment/Plan All Active Problems (Last Updated 01/17/21 @ 13:06 by Mana Reeves) COPD with acute exacerbation (Acute) Elevated troponin (Acute) Infestation by cimex scottius (Acute) NSTEMI (non-ST elevated myocardial infarction) (Acute 01/14/21) Cardiomyopathy (Resolved)
[2021-02-14 16:06] LABS: Anion Gap 2 (5-15); BUN 17 mg/dL (7-18); BUN/Creat Ratio 20.1 RATIO (10-20); Calcium,Total 8.3 mg/dL (8.5-10.1); Chloride 97 mmol/L (98-107); Creatinine, Serum 0.84 mg/dL (0.55-1.02); EST Glomerular Filtration Rate 70 mL/min (>60); Est Glom Filt Rate - Afr Amer 85 mL/min (>60); Glucose 97 mg/dL (74-106); Potassium 4.6 mmol/L (3.5-5.1); Sodium Level 134 mmol/L (136-145)
[2021-02-14 16:27] LABS: Differential Comment SCANNED
[2021-02-14 16:41] LABS: D-Dimer Quantitative (DVT/PE) 2.09 FEU/ug/m (0.27-0.49)
[2021-02-14 16:45] LABS: BNP,B-Type NATRIURETIC PEPTIDE 344.4 pg/mL (0-100)
--- NOTE | 2021-02-14 17:00 | CT_ITS ---
STUDY: CTA CHEST REASON FOR EXAM: Female, 75 years old. dyspnea RADIATION DOSAGE (If Supplied By Facility): CTDIvol = ( 3.32 ) mGy, DLP = ( 124.08 ) mGycm TECHNIQUE: The examination was performed with the intravenous administration of IV 75mL Isovue-370. Post-processing of the angiographic images was performed, with multiplanar reformation and 3D reconstruction. Individualized dose optimization techniques were used for this CT. COMPARISON: 01/17/2021, 11/05/2019. FINDINGS: Heart size and pericardium are unremarkable. The aorta is normal in caliber. No aneurysm or dissection. There is no mediastinal mass or adenopathy. There is no hilar or axillary adenopathy. There is no evidence of pulmonary embolus. Small bilateral pleural effusions. Moderate centrilobular emphysema. Airspace disease in the right lower lobe. Mild, patchy consolidation in the right middle lobe and left lower lobe. New, mild airspace disease in the superior segment of the right lower lobe with mild associated bronchiectasis. 0.5 cm pulmonary nodule in the right upper lobe is stable to minimally increased compared to October 2019. 3.5 cm low-attenuation lesion in the lateral segment of the liver, not adequately characterized on this pulmonary arterial phase study. There is no osseous abnormality. CT/CTA Chest W/WO Contrast IMPRESSION: 1. No pulmonary embolism or arterial dissection. 2. Airspace disease in the right lower lobe suspicious for pneumonia. Mild opacities in the right middle lobe and left lower lobe. Follow-up is strongly recommended after a complete course of therapy to exclude underlying malignancy. 3. Stable to minimally increased right upper lobe nodule. Options for further evaluation include three-month follow-up or PET scan following resolution of acute symptoms. 4. Bilateral pleural effusions. 5. Stable hepatic hypodensity. Electronically Signed: Adriana Fagan MD at 18:15 EDT Tel , Service support ,
--- NOTE | 2021-02-14 18:21 | ED.RN ---
discussed with dr kim. moist cough and ble edema. pt denies history of CHF. reports swelling comes and goes but this is worse it ever got and has been there several weeks.pt is not on any diuretics at this time. pt very concerned about edema in legs states the swelling and pain in my legs is why i came. i wish someone would do something about it.
--- NOTE | 2021-02-14 18:37 | HP.PCM_ITS ---
Problem List (1) HCAP (healthcare-associated pneumonia) Status: Acute (2) Lower extremity edema Status: Acute (3) Elevated d-dimer Status: Acute (4) Essential (primary) hypertension Status: Chronic (5) Protein calorie malnutrition Status: Chronic (6) HLD (hyperlipidemia) Status: Chronic History of Present Illness Date of Admission: 02/14/21 Chief Complaint: Leg swelling, cough The patient is a 75 year old F presents today with a mild cough and increased leg swelling over the past month which is increasingly gotten worse over the past few days. Patient was recently hospitalized for an NSTEMI with negative cardiac catheterization. Patient reports she has not had to increase her oxygen settings and her pulse ox at home has not dropped below 97%. Patient denies chest pain, tightness or increased shortness of breath.. Patient denies fever, chills, nausea, vomiting. CTA impression 1.No pulmonary embolism or arterial dissection. 2.Airspace disease in the right lower lobe suspicious for pneumonia. Mild opacities in the right middle lobe and left lower lobe. Follow-up is strongly recommended after a complete course of therapy to exclude underlying malignancy. 3.Stable to minimally increased right upper lobe nodule. Options for further evaluation include three-month follow-up or PET scan following resolution of acute symptoms. 4.Bilateral pleural effusions. 5.Stable hepatic hypodensity. Past Medical History Past Medical History (Chronic Problems): Chronic Problems (Last Reviewed 02/14/21 @ 18:46 by Lorraine Mckinley MEDICAL MALPRACTICE [employer]-C) Nonobstructive atherosclerosis of coronary artery (Chronic) Essential (primary) hypertension (Chronic) Hyponatremia (Chronic) COPD (chronic obstructive pulmonary disease) (Chronic) Protein calorie malnutrition (Chronic) Cardiac dysrhythmia (Chronic) Neurogenic bowel (Chronic) Neurogenic bladder (Chronic) HLD (hyperlipidemia) (Chronic) Medical History: Medical History (Last Reviewed 02/14/21 @ 18:46 by Lorraine Mckinley NP-C) Nonobstructive atherosclerosis of coronary artery (Chronic) I25.10 Essential (primary) hypertension (Chronic) I10 COPD with acute exacerbation (Acute) J44.1 Hyponatremia (Chronic) E87.1 Elevated troponin (Acute) R77.8 Infestation by cimex lectularius (Acute) B88.8 COPD (chronic obstructive pulmonary disease) (Chronic) J44.9 Protein calorie malnutrition (Chronic) E46 NSTEMI (non-ST elevated myocardial infarction) (Acute) Onset Date: 01/14/21 I21.4 05/05/2020, 01/14/21 Cardiac dysrhythmia (Chronic) I49.9 Neurogenic bowel (Chronic) K59.2 Neurogenic bladder (Chronic) N31.9 HLD (hyperlipidemia) (Chronic) E78.5 COPD (chronic obstructive pulmonary disease) J44.9 JIM (acute kidney injury) N17.9 GI bleed K92.2 Guaiac positive stools (Inactive) R19.5 Allergies Sulfa (Sulfonamide Antibiotics) Allergy (Verified 02/14/21 14:58) FACE GETS RED AND ITCHY codeine Adverse Reaction (Verified 02/14/21 14:58) Nausea Home Medications: Ambulatory Orders Medication Instructions Recorded Albuterol Sulfate [Ventolin Hfa] 1 - 2 puff INHALATION Q4H PRN 11/26/17 Gabapentin [Neurontin] 600 mg PO QHS 11/26/17 Albuterol Aerosols [Ventolin 2.5 mg INHALATION Q2H PRN PRN #1 11/28/17 Aerosols] box Fluticasone/Umeclidin/Vilanter 1 puff IH DAILY 10/16/18 [Trelegy Ellipta 100-62.5-25] Trazodone HCl 50 mg PO QHS PRN PRN 10/30/19 Atorvastatin Calcium 20 mg PO QHS 06/27/20 Carvedilol 3.125 mg PO BID 06/27/20 Aspirin 81 mg PO DAILY 01/11/21 Lisinopril 5 mg PO QHS 01/11/21 Ensure Enlive 120 ml PO 4X/DAY #120 liquid 01/18/21 Prednisone 10 mg PO DAILY #40 tablet 01/18/21 Guaifenesin [Mucinex] 1,200 mg PO BID PRN 02/14/21 Surgical History: Surgical History (Last Reviewed 02/14/21 @ 18:46 by Lorraine Mckinley NP-C) History of back surgery Z98.890 History of breast lump removal Z98.890 History of hysterectomy Z90.710 History of left heart catheterization (LHC) Onset Date: 01/17/21 Z98.890 normal coronaries per cath 06/02/20, 01/17/21 Surgical History: cholecystectomy, hysterectomy, - - spinal surgery Psychiatric History: 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 Reyes Saenz MD) Father Kidney disease Sister Breast cancer Sister Cancer History Items: Heart Disease Paternal Family History: Family History (Last Reviewed 01/15/21 @ 00:[address] Reyes Saenz MD) Father Kidney disease Sister Breast cancer Sister Cancer History Items: Renal Disease Review of Systems Constitutional: Denies: Chills, Fever, Weight Change HEENT: Denies: Head Aches, Sinus Congestion, Sinus Drainage Cardiovascular: Reports: Edema - Bilateral lower extremities. Denies: Chest Pain, Palpitations Respiratory: Reports: Cough - Mild nonproductive. Denies: Shortness of breath at rest, Sputum production Gastrointestinal: Denies: Abdominal Pain, Nausea, Vomiting Genitourinary: Denies: Dysuria Musculoskeletal: Denies: Joint Pain, Joint Tenderness Skin: Denies: Rash, Wounds Neurological: Denies: Numbness, Tingling, Focal weakness Psychiatric: Denies: Anxiety, Depression, Homicidal Ideations, Suicidal Ideations Hematologic/ Lymphatic: Denies: Easy Bruising, Easy Bleeding VTE Information - Inpt Only VTE Present on Admission: No VTE Mechan Device Prophylaxis: SCD's VTE Pharm Prophylaxis ordered?: Yes Patient Problems: Active and Suspected Problems (Last Reviewed 02/14/21 @ 18:46 by Lorraine Mckinley NP-C) Elevated d-dimer (Acute) HCAP (healthcare-associated pneumonia) (Acute) - Physical Exam Vitals/I&O's: Vital Signs Temp Pulse Resp BP Pulse Ox 97.3 F L 74 18 153/73 H 96 02/14/21 14:55 02/14/21 17:30 02/14/21 17:30 02/14/21 16:44 02/14/21 17:30 Oxygen Flow Rate (L/min) 2 Oxygen Delivery Method Room Air Weight: 88 lb 2.958 oz Body Mass Index (BMI) 14.6 General: Alert, Oriented x3, Cooperative HEENT: Atraumatic, PERRLA, EOMI, Normocephalic Neck: Supple, No JVD, Negative Carotid Bruits Lungs: Clear to auscultation, Normal air movement Cardiovascular: Regular rate, Regular Rhythm, Normal S1, Normal S2, No murmurs Abdomen: Bowel Sounds Present, Soft, Non Tender Extremities: Capillary Refill Less than 3 Seconds, Edema - 2+ pitting to bilateral lower extremities Skin: No rashes, No breakdown Musculoskeletal: No Tenderness to Palpation of Joints or Extremities Neurological: Cranial nerves II-XII grossly intact Psych/Mental Status: Normal Affect, Appropriate Microbiology Past 72 Hours 02/14/21 16:35 Stool Stool Occult Blood (DONALD) - Final Laboratory Results 02/14/21 15:35: WBC 9.0, RBC 3.10 L, Hgb 9.5 L, Hct 31.8 L, MCV 102.6 H, MCH 30.6, MCHC 29.9 L, RDW Std Deviation 50.8 H, RDW Coeff of Ashu 13.6, Plt Count 332, MPV 9.0, Immature Gran % (Auto) 0.600, Neut % (Auto) 89.8 H, Lymph % (Auto) 4.9 L, [place] % (Auto) 3.6, Eos % (Auto) 0.9, Baso % (Auto) 0.2, Absolute Neuts (auto) 8.1 H, Absolute Lymphs (auto) 0.44 L, Nucleated RBC % 0, Differential Comment SCANNED 02/14/21 15:35: D-Dimer Quant (PE/DVT) 2.09 H* 02/14/21 15:35: Sodium 134 L, Potassium 4.6, Chloride 97 L, Carbon Dioxide 35.0 H, Anion Gap 2 L, BUN 17, Creatinine 0.84, Estim Creat Clear Calc 37.10, Est GFR (MDRD) Af Amer 85, Est GFR (MDRD) Non-Af 70, BUN/Creatinine Ratio 20.1 H, Glucose 97, Calcium 8.3 L, Troponin I < 0.015 02/14/21 15:35: B-Natriuretic Peptide 344.4 H Current Medications Piperacillin Sod/Tazobactam (Sod 3.375 gm/ Sodium Chloride) 50 mls @ 100 mls/hr IV X1 ONE Stop: 02/14/21 19:00 Assessment/Plan All Active Problems (Last Reviewed 02/14/21 @ 18:46 by Lorraine Mckinley NP-C) Elevated d-dimer (Acute) HCAP (healthcare-associated pneumonia) (Acute) Lower extremity edema (Acute) COPD with acute exacerbation (Acute) Elevated troponin (Acute) Infestation by cimex lectularius (Acute) NSTEMI (non-ST elevated myocardial infarction) (Acute 01/14/21) Cardiomyopathy (Resolved) 1. Healthcare associated pneumonia -Admit for observation to [facility] -O2 per protocol with as needed aerosols ordered -IV Zosyn and vancomycin -Procalcitonin; strep pneumonia and Legionella urine ordered -Respiratory panel and MRSA nasal ordered -PT and OT to eval and treat -Vital signs per protocol -Sputum culture ordered -Encourage incentive spirometry 2. Lower extremity edema -BNP mildly elevated 344.4 -Patient recently underwent cardiac work-up following NSTEMI no heart failure noted -[place] wraps to bilateral legs -IV Lasix x1 3. Elevated D-dimer -CTA negative for PE 4. Essential primary hypertension -Continue home medication regimen -As needed hydralazine ordered 5. Hyperlipidemia -Continue home medication regimen 6. Protein calorie malnutrition -Consult nutrition DVT prophylaxis-Lovenox SQ and SCDs This patient was seen by Lorraine Mckinley MEDICAL MALPRACTICE PARALEGAL-C under the supervision of Dr. Leavitt.
[2021-02-14] MEDS: Furosemide 40 MG/4 ML Vial IV (19:01)
[2021-02-14 20:16] LABS: Magnesium 2.1 mg/dL (1.6-2.6)
[2021-02-14] MEDS: Ipratropium/Albuterol Sulfate 3 ML AMPUL.NEB INHALATION (20:38)
[2021-02-14 20:42] LABS: Procalcitonin 0.04 ng/mL (0.00-0.09)
[2021-02-14] MEDS: 0.9% Saline Lock 10 ML Syringe IV (21:47)
[2021-02-14] MEDS: Carvedilol 3.125 MG TABLET PO (21:47)
[2021-02-14] MEDS: traZODone 50 MG Tablet PO (21:47)
[2021-02-14] MEDS: Famotidine 20 MG Tablet PO (21:47)
[2021-02-14] MEDS: Lisinopril 2.5 MG Tablet PO (21:47)
[2021-02-14] MEDS: Gabapentin 600 MG Tablet PO (21:47)
[2021-02-14] MEDS: Atorvastatin Calcium 20 MG Tablet PO (21:48)
[2021-02-14 23:32] LABS: M R Staph aureus DNA By PCR Negative (Negative); Probe Check PASS; Specimen Processing Control PASS
--- NOTE | 2021-02-14 23:58 | CPS ---
Pt refusing PAP therapy at this time.
[2021-02-15 03:50] VITALS: BP 118/60; PULSE 68; RESP 16; TEMP 37.1; O2SAT 95
[2021-02-15 07:19] LABS: Absolute Lymphocyte Count 1.05 X10^3/uL (0.83-4.51); Basophil# 0.02 X10^3/uL; Basophil% 0.2 % (0-1); Eosinophils% 1.1 % (0-5); Hematocrit 28.7 % (37-47); Hemoglobin 8.9 g/dL (12.0-15.0); Lymphocyte # 1.05 X10^3/ul (0.83-4.51); Mean Corpuscular Hgb 31.1 pg (27.0-32.0); Mean Corpuscular Volume 100.3 fL (81-99); Mean Platelet Vol. 9.1 fl (6.2-12.0); Monocyte# 0.57 X10^3/uL; Monocyte% 6.5 % (0-10); NRBC Flagged by Analyzer 0 % (0-5); Neutrophil # 6.99 X10^3/uL (2.7-7.7); Neutrophil % 79.6 % (47-70); Platelet Count 331 K/mm3 (150-450); RBC Distribution Width CV 13.8 % (11.6-14.6); RBC Distribution Width SD 50.3 fl (35.1-43.9); Red Blood Count 2.86 M/mm3 (4.2-5.4); White Blood Count 8.8 K/mm3 (4.4-11.0)
[2021-02-15 07:26] VITALS: PULSE 66; RESP 18; O2SAT 97
[2021-02-15] MEDS: Ipratropium/Albuterol Sulfate 3 ML AMPUL.NEB INHALATION ×2 (07:26→10:42)
[2021-02-15 07:51] LABS: ALB/GLOB Ratio 0.8 RATIO (0.9-2.4); AST(SGOT) 13 U/L (15-37); Alanine Aminotransfer ALT/SGPT 9 U/L (13-56); Albumin, Serum 2.3 g/dL (3.2-5.0); Alkaline Phosphatase 108 U/L (45-117); Anion Gap 4 (5-15); BUN 19 mg/dL (7-18); BUN/Creat Ratio 21.1 RATIO (10-20); Calcium,Total 8.1 mg/dL (8.5-10.1); Chloride 99 mmol/L (98-107); EST Glomerular Filtration Rate 65 mL/min (>60); Est Glom Filt Rate - Afr Amer 79 mL/min (>60); Estimated Creatinine Clearance 37.57 ml/min; Globulin 2.8 g/dL (2.2-4.2); Glucose 82 mg/dL (74-106); Protein, Total 5.1 g/dL (6.4-8.2); Sodium Level 137 mmol/L (136-145)
[2021-02-15 10:06] VITALS: BP 114/58; PULSE 73; RESP 18; TEMP 36.8; O2SAT 96
[2021-02-15] MEDS: Enoxaparin 40 MG/0.4 ML Syringe SC (10:16)
[2021-02-15] MEDS: Carvedilol 3.125 MG TABLET PO (10:16)
[2021-02-15] MEDS: 0.9% Saline Lock 10 ML Syringe IV (10:17)
[2021-02-15] MEDS: Aspirin 81 MG TAB.CHEW PO (10:17)
[2021-02-15 10:45] VITALS: PULSE 69; RESP 18
--- NOTE | 2021-02-15 11:11 | CON.PCM_ITS ---
Problem List (1) HCAP (healthcare-associated pneumonia) Status: Acute Reason for Consult: pneumonia Consulted by: Dr. Navarro History of Present Illness: The patient is a 75 year old F with COPD, on 2L home O2, presented with one week of worsened cough, dyspnea, green sputum. Is on erythromycin daily chronically. No covid shot. No sick contacts. No fever, no n/v/d, no aches, no chest pain. Came to ED, admitted, now on zosyn, feeling back to normal, wants to go home. Full ROS performed and neg except as noted above. No change in taste or smell. - Medical History Past Medical History (Chronic Problems): Chronic Problems (Last Reviewed 02/14/21 @ 18:46 by Lorraine Mckinley NP-C) Nonobstructive atherosclerosis of coronary artery (Chronic) Essential (primary) hypertension (Chronic) Hyponatremia (Chronic) COPD (chronic obstructive pulmonary disease) (Chronic) Protein calorie malnutrition (Chronic) Cardiac dysrhythmia (Chronic) Neurogenic bowel (Chronic) Neurogenic bladder (Chronic) HLD (hyperlipidemia) (Chronic) Allergies/Adverse Reactions: Allergies Sulfa (Sulfonamide Antibiotics) Allergy (Verified 02/14/21 14:58) FACE GETS RED AND ITCHY codeine Adverse Reaction (Verified 02/14/21 14:58) Nausea Home Medications: Ambulatory Orders Medication Instructions Recorded Albuterol Sulfate [Ventolin Hfa] 1 - 2 puff INHALATION Q4H PRN 11/26/17 Gabapentin [Neurontin] 600 mg PO QHS 11/26/17 Albuterol Aerosols [Ventolin 2.5 mg INHALATION Q2H PRN PRN #1 11/28/17 Aerosols] box Fluticasone/Umeclidin/Vilanter 1 puff IH DAILY 10/16/18 [Trelegy Ellipta 100-62.5-25] Trazodone HCl 50 mg PO QHS PRN PRN 10/30/19 Atorvastatin Calcium 20 mg PO QHS 06/27/20 Carvedilol 3.125 mg PO BID 06/27/20 Aspirin 81 mg PO DAILY 01/11/21 Ensure Enlive 120 ml PO 4X/DAY #120 liquid 01/18/21 Prednisone 10 mg PO DAILY #40 tablet 01/18/21 Cholecalciferol (Vitamin D3) 2,000 unit PO DAILY 02/14/21 [Vitamin D3] Guaifenesin [Mucinex] 1,200 mg PO BID PRN 02/14/21 Lisinopril [Zestril] 2.5 mg PO DAILY 02/14/21 Multivitamin [Animal Chews] 1 each PO DAILY 02/14/21 - Social History SMOKING STATUS:: Former smoker Vital Signs Temp Pulse Resp BP Pulse Ox 98.3 F 73 18 114/58 L 96 02/15/21 10:06 02/15/21 10:06 02/15/21 10:06 02/15/21 10:06 02/15/21 10:06 Oxygen Flow Rate (L/min) 2 Oxygen Delivery Method Nasal Cannula Weight: 43.4 kg Body Mass Index (BMI) 17.2 Microbiology Past 72 Hours 02/14/21 20:45 Respiratory Panel (PCR) - Final Mucosa - Nasopharyngeal 02/14/21 21:07 Streptococcus pneumoniae Antigen (M - Final Interface Orders 02/14/21 21:07 Legionella Antigen - Final Interface Orders 02/14/21 16:35 Stool Occult Blood (DONALD) - Final Stool Laboratory Tests Past 24 Hrs 02/14/21 02/14/21 02/14/21 15:35 15:35 15:35 WBC 9.0 RBC 3.10 L Hgb 9.5 L Hct 31.8 L MCV 102.6 H MCH 30.6 MCHC 29.9 L RDW Std Deviation 50.8 H RDW Coeff of Ashu 13.6 Plt Count 332 MPV 9.0 Immature Gran % (Auto) 0.600 Neut % (Auto) 89.8 H Lymph % (Auto) 4.9 L [place] % (Auto) 3.6 Eos % (Auto) 0.9 Baso % (Auto) 0.2 Absolute Neuts (auto) 8.1 H Absolute Lymphs (auto) 0.44 L Nucleated RBC % 0 Differential Comment SCANNED D-Dimer Quant (PE/DVT) 2.09 H* Sodium 134 L Potassium 4.6 Chloride 97 L Carbon Dioxide 35.0 H Anion Gap 2 L BUN 17 Creatinine 0.84 Estim Creat Clear Calc 37.10 Est GFR (MDRD) Af Amer 85 Est GFR (MDRD) Non-Af 70 BUN/Creatinine Ratio 20.1 H Glucose 97 Calcium 8.3 L Magnesium Total Bilirubin AST ALT Alkaline Phosphatase Troponin I < 0.015 B-Natriuretic Peptide Total Protein Albumin Globulin Albumin/Globulin Ratio Procalcitonin COVID-19 (LOGAN) MRSA (PCR) 02/14/21 02/14/21 02/14/21 15:35 15:35 15:35 WBC RBC Hgb Hct MCV MCH MCHC RDW Std Deviation RDW Coeff of Ashu Plt Count MPV Immature Gran % (Auto) Neut % (Auto) Lymph % (Auto) [place] % (Auto) Eos % (Auto) Baso % (Auto) Absolute Neuts (auto) Absolute Lymphs (auto) Nucleated RBC % Differential Comment D-Dimer Quant (PE/DVT) Sodium Potassium Chloride Carbon Dioxide Anion Gap BUN Creatinine Estim Creat Clear Calc Est GFR (MDRD) Af Amer Est GFR (MDRD) Non-Af BUN/Creatinine Ratio Glucose Calcium Magnesium 2.1 Total Bilirubin AST ALT Alkaline Phosphatase Troponin I B-Natriuretic Peptide 344.4 H Total Protein Albumin Globulin Albumin/Globulin Ratio Procalcitonin 0.04 COVID-19 (LOGAN) MRSA (PCR) 02/14/21 02/15/21 02/15/21 22:00 06:55 06:55 WBC 8.8 RBC 2.86 L Hgb 8.9 L Hct 28.7 L MCV 100.3 H MCH 31.1 MCHC 31.0 L RDW Std Deviation 50.3 H RDW Coeff of Ashu 13.8 Plt Count 331 MPV 9.1 Immature Gran % (Auto) 0.600 Neut % (Auto) 79.6 H Lymph % (Auto) 12.0 L [place] % (Auto) 6.5 Eos % (Auto) 1.1 Baso % (Auto) 0.2 Absolute Neuts (auto) 7.0 Absolute Lymphs (auto) 1.05 Nucleated RBC % 0 Differential Comment D-Dimer Quant (PE/DVT) Sodium 137 Potassium 4.0 Chloride 99 Carbon Dioxide 34.0 H Anion Gap 4 L BUN 19 H Creatinine 0.90 Estim Creat Clear Calc 37.57 Est GFR (MDRD) Af Amer 79 Est GFR (MDRD) Non-Af 65 BUN/Creatinine Ratio 21.1 H Glucose 82 Calcium 8.1 L Magnesium Total Bilirubin 0.30 AST 13 L ALT 9 L Alkaline Phosphatase 108 Troponin I B-Natriuretic Peptide Total Protein 5.1 L Albumin 2.3 L Globulin 2.8 Albumin/Globulin Ratio 0.8 L Procalcitonin COVID-19 (LOGAN) MRSA (PCR) Negative 02/15/21 08:18 WBC RBC Hgb Hct MCV MCH MCHC RDW Std Deviation RDW Coeff of Ashu Plt Count MPV Immature Gran % (Auto) Neut % (Auto) Lymph % (Auto) [place] % (Auto) Eos % (Auto) Baso % (Auto) Absolute Neuts (auto) Absolute Lymphs (auto) Nucleated RBC % Differential Comment D-Dimer Quant (PE/DVT) Sodium Potassium Chloride Carbon Dioxide Anion Gap BUN Creatinine Estim Creat Clear Calc Est GFR (MDRD) Af Amer Est GFR (MDRD) Non-Af BUN/Creatinine Ratio Glucose Calcium Magnesium Total Bilirubin AST ALT Alkaline Phosphatase Troponin I B-Natriuretic Peptide Total Protein Albumin Globulin Albumin/Globulin Ratio Procalcitonin COVID-19 (LOGAN) Not Detected MRSA (PCR) - Other Studies Radiology: [] reviewed Other Studies: [] Route of nutrition/ use of supplements: [] Nutritional Intake: [] IV Site: [] Cullen Catheter: [] - Physical Exam General: Alert, Oriented x3, Cooperative, No apparent distress HEENT: Atraumatic, PERRLA, EOMI Neck: Supple, No Nodes Lungs: Diminished, Wheezes Cardiovascular: Regular rate, Regular Rhythm Abdomen: Soft, Non Tender, Non-Distended Extremities: No edema Skin: No rashes IV Site: Peripheral, without redness Musculoskeletal: No Tenderness to Palpation of Joints or Extremities Neurological: Cranial nerves II-XII grossly intact - Assessment/Plan Antibiotics: [] Assessment/Plan: [] Active and Suspected Problems (Last Reviewed 02/14/21 @ 18:46 by Lorraine Mckinley, [employer]-C) Elevated d-dimer (Acute) HCAP (healthcare-associated pneumonia) (Acute) Lower extremity edema (Acute) CAP with copd, home 2L O2 - covid neg. Recommended she get vaccine as an outpt. PCT neg. UAg neg. Wbc normal. No fever. BNP mildly elevated. D-dimer 2.1. On zosyn, recommend home with 5 days augmentin 875mg bid and doxy 100mg bid given mild symptoms. Will follow, thank you
--- NOTE | 2021-02-15 11:50 | DCINST_ITS ---
- Discharge Diagnoses Current Active Problems: Current Active and Chronic Problems (Last Reviewed 02/14/21 @ 18:46 by CULLEN Santos) Elevated d-dimer (Acute) HCAP (healthcare-associated pneumonia) (Acute) Lower extremity edema (Acute) Nonobstructive atherosclerosis of coronary artery (Chronic) Essential (primary) hypertension (Chronic) Hyponatremia (Chronic) COPD (chronic obstructive pulmonary disease) (Chronic) Protein calorie malnutrition (Chronic) HLD (hyperlipidemia) (Chronic) You will use the following diet at home:: No restrictions Your food should be the consistency of: Regular Your liquids should be the consistency of: Regular/Thin Discharge Activity: Return to Normal Activity Allergies/Adverse Reactions: Allergies Sulfa (Sulfonamide Antibiotics) Allergy (Verified 02/14/21 14:58) FACE GETS RED AND ITCHY codeine Adverse Reaction (Verified 02/14/21 14:58) Nausea Medications to take at Discharge Albuterol Sulfate [Ventolin Hfa] 1 - 2 puff INHALATION Q4H PRN 11/26/17 Gabapentin [Neurontin] 600 mg PO QHS 11/26/17 Albuterol Aerosols [Ventolin Aerosols] 2.5 mg INHALATION Q2H PRN PRN #1 box 11/28/17 Fluticasone/Umeclidin/Vilanter [Trelegy Ellipta 100-62.5-25] 1 puff IH DAILY 10/16/18 Trazodone HCl 50 mg PO QHS PRN PRN 10/30/19 Atorvastatin Calcium 20 mg PO QHS 06/27/20 Carvedilol 3.125 mg PO BID 06/27/20 Aspirin 81 mg PO DAILY 01/11/21 Ensure Enlive 120 ml PO 4X/DAY #120 liquid 01/18/21 Prednisone 10 mg PO DAILY #40 tablet 01/18/21 Cholecalciferol (Vitamin D3) [Vitamin D3] 2,000 unit PO DAILY 02/14/21 Guaifenesin [Mucinex] 1,200 mg PO BID PRN 02/14/21 Lisinopril [Zestril] 2.5 mg PO DAILY 02/14/21 Multivitamin [Animal Chews] 1 each PO DAILY 02/14/21 Amox/Clavulanate Tablet [Augmentin Tablet] 875 mg PO Q12H #10 tab 02/15/21 Doxycycline 100 mg PO BID #10 capsule 02/15/21 Furosemide [Lasix] 20 mg PO PRN PRN #15 tab 02/15/21 The following prescriptions were given: Amox/Clavulanate Tablet [Augmentin Tablet] 875 mg PO Q12H #10 tab Transmission Status: Pending to [id number] Doxycycline 100 mg PO BID #10 capsule Transmission Status: Pending to [id number] Furosemide [Lasix] 20 mg PO PRN PRN #15 tab PRN Reason: LE swelling Transmission Status: Pending to [id number] Primary Care Physician: Matt Peace MD [Primary Care Provider] - Please follow up with your Primary Care Physician in: Within the next 2 weeks Test Results: Test results from this visit will be discussed in further detail at your follow- up appointment, if applicable. Proposed Discharge Date: 02/15/21
[2021-02-15] MEDS: Doxycycline 100 MG CAPSULE PO (13:08)
--- NOTE | 2021-02-15 13:54 | PHA.DC.MR ---
Pharmacy Service has performed discharge medication reconciliation for this patient. The patient's discharge medication list was reviewed for discrepancies and discrepancies were resolved. Home Medications Albuterol Sulfate [Ventolin Hfa] 1 - 2 puff INHALATION Q4H PRN 11/26/17 Gabapentin [Neurontin] 600 mg PO QHS 11/26/17 Albuterol Aerosols [Ventolin Aerosols] 2.5 mg INHALATION Q2H PRN PRN #1 box 11/28/17 Fluticasone/Umeclidin/Vilanter [Trelegy Ellipta 100-62.5-25] 1 puff IH DAILY 10/16/18 Trazodone HCl 50 mg PO QHS PRN PRN 10/30/19 Atorvastatin Calcium 20 mg PO QHS 06/27/20 Carvedilol 3.125 mg PO BID 06/27/20 Aspirin 81 mg PO DAILY 01/11/21 Ensure Enlive 120 ml PO 4X/DAY #120 liquid 01/18/21 Prednisone 10 mg PO DAILY #40 tablet 01/18/21 Cholecalciferol (Vitamin D3) [Vitamin D3] 2,000 unit PO DAILY 02/14/21 Guaifenesin [Mucinex] 1,200 mg PO BID PRN 02/14/21 Lisinopril [Zestril] 2.5 mg PO DAILY 02/14/21 Multivitamin [Animal Chews] 1 each PO DAILY 02/14/21 Amox/Clavulanate Tablet [Augmentin Tablet] 875 mg PO Q12H #10 tab 02/15/21 Doxycycline 100 mg PO BID #10 capsule 02/15/21 Furosemide [Lasix] 20 mg PO PRN PRN #15 tab 02/15/21
--- NOTE | 2021-02-15 15:26 | DS.PCM_ITS ---
Discharge Date and Diagnosis - Problem List Patient Problems: Active and Suspected Problems (Last Reviewed 02/14/21 @ 18:46 by CULLEN Santos) Elevated d-dimer (Acute) HCAP (healthcare-associated pneumonia) (Acute) Lower extremity edema (Acute) Date of Admission: 02/14/21 Date of Discharge: 02/15/21 - Primary Discharge Diagnosis Acute Problems: Active Problems (Last Reviewed 02/14/21 @ 18:46 by CULLEN Santos) Elevated d-dimer (Acute) HCAP (community associated pneumonia) (Acute) Lower extremity edema (Acute) - Secondary Discharge Diagnosis Chronic Problems: Chronic Problems (Last Reviewed 02/14/21 @ 18:46 by CULLEN Santos) Nonobstructive atherosclerosis of coronary artery (Chronic) Essential (primary) hypertension (Chronic) Hyponatremia (Chronic) COPD (chronic obstructive pulmonary disease) (Chronic) Protein calorie malnutrition (Chronic) Cardiac dysrhythmia (Chronic) Neurogenic bowel (Chronic) Neurogenic bladder (Chronic) HLD (hyperlipidemia) (Chronic) Hospital Course and Treatment Operations: None Summary of Care Provided: Patient is a 75-year-old female presented to the ED on 02/14/2021 with a mild cough and increased leg swelling. Patient was admitted for right lower lobe pneumonia, acute on chronic bilateral lower extremity edema and incidental right upper lobe nodule. Infectious disease consulted for possible healthcare acquired pneumonia; recommends outpatient azithromycin and doxycycline x5 days. Patient has no history of CHF. BNP not significantly elevated at 344. At admission chest x-ray demonstrated no acute cardiac pathology and only demonstrated hyperinflated lungs with a right pleural effusion and basilar focal infiltrate/atelectasis. Lower extremity swelling amenable to IV Lasix x1. 1) Bilateral lower lobe pneumonia Patient does not have a white count. CXR demonstrates hyperinflated lungs with a right pleural effusion and basilar focal infiltrate/atelectasis. Viral respiratory panel negative. Strep pneumo and Legionella panels negative. Covid PCR negative. Afebrile, vital signs stable. Maintaining oxygen saturation at 96% on 2 L via nasal cannula. ID following, recommends outpatient medical management. Plan; discharged on Augmentin 875 twice daily and doxycycline 100 mg p.o. twice daily x5 days. Follow-up with primary care provider within the next 2 weeks. 2) Acute on chronic bilateral lower extremity edema Patient with chronic edema. Likely related to poor nutritional status. BNP 344 at admission. Chest x-ray demonstrates normal-sized heart, normal mediastinum and marco antonio, normal visualized pulmonary arteries and normal aortic arch and descending thoracic aorta. Recent cardiac work-up for NSTEMI revealed no evidence of heart failure. Edema amenable to Lasix and emily wraps bilaterally. Plan; discharged on Lasix 20 mg p.o. as needed, follow-up with primary care provider. 3) incidental right upper lobe nodule Due to elevated D-dimer, CT - A was obtained and found no evidence of pulmonary emboli or arterial dissection, however did demonstrate airspace disease in the right lower lobe suspicious for pneumonia with mild opacities in the right middle lobe and left lower lobe bilateral pleural effusions, stable hepatic hypodensity. Plan; continue with outpatient monitoring. 4) Macrocytic anemia, acute on chronic Admission hemoglobin 9.5. Patient denies any alteration to her stools including black appearing or bright red blood. 5) Chronic COPD Continue home medications and home oxygen. 6. Recent NSTEMI, non-obstructive CAD Recent admission with NSTEMI, no acute coronary disease on cardiac catheterization and 01/15/2021 echocardiogram with EF of 55 to 60% with mild RV dilation with grade 1 diastolic dysfunction. Continue home aspirin, statin, Coreg, lisinopril on discharge. 7. Hypertension Continue home regimen including Coreg, lisinopril at discharge. 8. Hyperlipidemia Continue home statin regimen. 9. Severe protein calorie malnutrition Evidenced by reduced BMI 14, habitus with muscle and fat loss, nutrition consulted. Patient seen by Jamil Fuentes PA-C, under the supervision of Dr. Navarro. Patient Problems: Active and Suspected Problems (Last Reviewed 02/14/21 @ 18:46 by Lorraine Mckinley NP-Johan) Elevated d-dimer (Acute) HCAP (healthcare-associated pneumonia) (Acute) Lower extremity edema (Acute) Subjective: Patient is a 75-year-old female comfortably resting in bed, alert and oriented x3. Denies chest pain, shortness of breath, palpitations, fever, chills, N/V/D. Objective: Clinical Impression(s) from Imaging Studies Chest X-Ray 02/14/21 15:43 IMPRESSION: The lungs are hyperaerated. Right pleural effusion with basilar focal infiltrate/atelectasis. Electronically Signed: Isaac Almanza DO at 16:55 EDT Tel [phone], Service support , Chest CTA 02/14/21 17:00 IMPRESSION: 1. No pulmonary embolism or arterial dissection. 2. Airspace disease in the right lower lobe suspicious for pneumonia. Mild opacities in the right middle lobe and left lower lobe. Follow-up is strongly recommended after a complete course of therapy to exclude underlying malignancy. 3. Stable to minimally increased right upper lobe nodule. Options for further evaluation include three-month follow-up or PET scan following resolution of acute symptoms. 4. Bilateral pleural effusions. 5. Stable hepatic hypodensity. Electronically Signed: Adriana Fagan MD at 18:15 EDT Tel , Service support , Microbiology 02/14/21 20:45 Mucosa - Nasopharyngeal Respiratory Panel (PCR) - Final 02/14/21 21:07 Interface Orders Streptococcus pneumoniae Antigen (M - Final 02/14/21 21:07 Interface Orders Legionella Antigen - Final 02/14/21 16:35 Stool Stool Occult Blood (DONALD) - Final - Physical Exam Vitals/I&O's: Vital Signs Temp Pulse Resp BP Pulse Ox 98.3 F 73 18 114/58 L 96 02/15/21 10:06 02/15/21 10:06 02/15/21 10:06 02/15/21 10:06 02/15/21 10:06 Oxygen Flow Rate (L/min) 2 Oxygen Delivery Method Nasal Cannula Weight: 95 lb 10.89 oz Body Mass Index (BMI) 17.2 Intake and Output for Last 24 Hours 02/13/21 02/14/21 02/15/21 23:59 23:59 23:59 Intake Total 325 / 545 320 / 320 Output Total 3300 / 3300 Balance 325 / -1205 -2980 / -2980 General: Alert, Oriented x3, Cooperative HEENT: Atraumatic, PERRLA, EOMI, Normocephalic Neck: Supple, No JVD, Negative Carotid Bruits Lungs: Diminished Cardiovascular: Regular rate, No murmurs Abdomen: Bowel Sounds Present, Soft, Non Tender Extremities: No edema, Capillary Refill Less than 3 Seconds Skin: No rashes, No breakdown Musculoskeletal: No Tenderness to Palpation of Joints or Extremities Neurological: Cranial nerves II-XII grossly intact Psych/Mental Status: Normal Affect, Appropriate Microbiology Past 72 Hours 02/14/21 20:45 Mucosa - Nasopharyngeal Respiratory Panel (PCR) - Final 02/14/21 21:07 Interface Orders Streptococcus pneumoniae Antigen (M - Final 02/14/21 21:07 Interface Orders Legionella Antigen - Final 02/14/21 16:35 Stool Stool Occult Blood (DONALD) - Final Laboratory Results 02/14/21 15:35: WBC 9.0, RBC 3.10 L, Hgb 9.5 L, Hct 31.8 L, MCV 102.6 H, MCH 30.6, MCHC 29.9 L, RDW Std Deviation 50.8 H, RDW Coeff of Ashu 13.6, Plt Count 332, MPV 9.0, Immature Gran % (Auto) 0.600, Neut % (Auto) 89.8 H, Lymph % (Auto) 4.9 L, [place] % (Auto) 3.6, Eos % (Auto) 0.9, Baso % (Auto) 0.2, Absolute Neuts (auto) 8.1 H, Absolute Lymphs (auto) 0.44 L, Nucleated RBC % 0, Differential Comment SCANNED 02/14/21 15:35: D-Dimer Quant (PE/DVT) 2.09 H* 02/14/21 15:35: Sodium 134 L, Potassium 4.6, Chloride 97 L, Carbon Dioxide 35.0 H, Anion Gap 2 L, BUN 17, Creatinine 0.84, Estim Creat Clear Calc 37.10, Est GFR (MDRD) Af Amer 85, Est GFR (MDRD) Non-Af 70, BUN/Creatinine Ratio 20.1 H, Glucose 97, Calcium 8.3 L, Troponin I < 0.015 02/14/21 15:35: B-Natriuretic Peptide 344.4 H 02/14/21 15:35: Magnesium 2.1 02/14/21 15:35: Procalcitonin 0.04 02/14/21 22:00: MRSA (PCR) Negative 02/15/21 06:55: WBC 8.8, RBC 2.86 L, Hgb 8.9 L, Hct 28.7 L, MCV 100.3 H, MCH 31.1, MCHC 31.0 L, RDW Std Deviation 50.3 H, RDW Coeff of Ashu 13.8, Plt Count 331, MPV 9.1, Immature Gran % (Auto) 0.600, Neut % (Auto) 79.6 H, Lymph % (Auto) 12.0 L, [place] % (Auto) 6.5, Eos % (Auto) 1.1, Baso % (Auto) 0.2, Absolute Neuts (auto) 7.0, Absolute Lymphs (auto) 1.05, Nucleated RBC % 0 02/15/21 06:55: Sodium 137, Potassium 4.0, Chloride 99, Carbon Dioxide 34.0 H, Anion Gap 4 L, BUN 19 H, Creatinine 0.90, Estim Creat Clear Calc 37.57, Est GFR (MDRD) Af Amer 79, Est GFR (MDRD) Non-Af 65, BUN/Creatinine Ratio 21.1 H, Glucose 82, Calcium 8.1 L, Total Bilirubin 0.30, AST 13 L, ALT 9 L, Alkaline Phosphatase 108, Total Protein 5.1 L, Albumin 2.3 L, Globulin 2.8, Album in/Globulin Ratio 0.8 L 02/15/21 08:18: COVID-19 (LOGAN) Not Detected Discharge Diet: No Restrictions Discharge Activity: Return to Normal Activity Home Medications: Medications to take at Discharge Albuterol Sulfate [Ventolin Hfa] 1 - 2 puff INHALATION Q4H PRN 11/26/17 Gabapentin [Neurontin] 600 mg PO QHS 11/26/17 Albuterol Aerosols [Ventolin Aerosols] 2.5 mg INHALATION Q2H PRN PRN #1 box 11/28/17 Fluticasone/Umeclidin/Vilanter [Trelegy Ellipta 100-62.5-25] 1 puff IH DAILY 10/16/18 Trazodone HCl 50 mg PO QHS PRN PRN 10/30/19 Atorvastatin Calcium 20 mg PO QHS 06/27/20 Carvedilol 3.125 mg PO BID 06/27/20 Aspirin 81 mg PO DAILY 01/11/21 Ensure Enlive 120 ml PO 4X/DAY #120 liquid 01/18/21 Prednisone 10 mg PO DAILY #40 tablet 01/18/21 Cholecalciferol (Vitamin D3) [Vitamin D3] 2,000 unit PO DAILY 02/14/21 Guaifenesin [Mucinex] 1,200 mg PO BID PRN 02/14/21 Lisinopril [Zestril] 2.5 mg PO DAILY 02/14/21 Multivitamin [Animal Chews] 1 each PO DAILY 02/14/21 Amox/Clavulanate Tablet [Augmentin Tablet] 875 mg PO Q12H #10 tab 02/15/21 Doxycycline 100 mg PO BID #10 capsule 02/15/21 Furosemide [Lasix] 20 mg PO PRN PRN #15 tab 02/15/21 Following Prescriptions Were Given to Patient: Amox/Clavulanate Tablet [Augmentin Tablet] 875 mg PO Q12H #10 tab [facility] Status[facility] Doxycycline 100 mg PO BID #10 capsule Transmission Status: [facility] Furosemide [Lasix] 20 mg PO PRN PRN #15 tab PRN Reason: LE swelling Transmission Status: [facility] Primary Care Physician: Matt Peace MD [Primary Care Provider] - Please follow up with your Primary Care Physician in: Within the next 2 weeks Disposition: Home Minutes spent on discharge:: 35 Patient Condition:: Stable Medical Necessity - Tobacco Use Smoking Status: Former smoker Tobacco Use: Cigarettes Meaningful Use Info Meaningful Use Diagnoses (Choose all that apply): None applicable
== END 2021-02-15 11:51 | disposition home or self-care (01) ==
LOC: ED 15:55 → PCU 18:55
PROVIDERS: Admitting Provider Family Medicine; Emergency Provider Student in an Organized Health Care Education/Training Program; PCP Family Medicine; Visit Provider Internal Medicine
DX: J18.9 Pneumonia, unspecified organism (principal); J44.0 Chronic obstructive pulmonary disease with (acute) lower respiratory infection; R60.0 Localized edema; R79.89 Other specified abnormal findings of blood chemistry; M79.89 Other specified soft tissue disorders; Z79.899 Other long term (current) drug therapy; Z79.51 Long term (current) use of inhaled steroids; Z79.82 Long term (current) use of aspirin; I25.2 Old myocardial infarction; I25.10 Atherosclerotic heart disease of native coronary artery without angina pectoris; I10 Essential (primary) hypertension; E87.1 Hypo-osmolality and hyponatremia; Z87.891 Personal history of nicotine dependence; E43 Unspecified severe protein-calorie malnutrition; E78.5 Hyperlipidemia, unspecified; N31.9 Neuromuscular dysfunction of bladder, unspecified; K59.2 Neurogenic bowel, not elsewhere classified; Z68.1 Body mass index [BMI] 19.9 or less, adult; J96.11 Chronic respiratory failure with hypoxia; I89.0 Lymphedema, not elsewhere classified; D53.9 Nutritional anemia, unspecified; Z79.52 Long term (current) use of systemic steroids
CPT/HCPCS: 36415; 71045; 71275; 80048; 80053; 82274; 83735; 83880; 84145; 84484; 85025; 85379; 87449; 87633; 87635; 87641; 93005; 94640; 96365; 96366; 96367; 96372; 96375; 99218; 99251; 99283; J7050; Q9967; A4216; G0378; G0463; J1940; U0002

== ENCOUNTER 2021-04-21 13:47 | Emergency (ER) | payer MEDICARE, OTHER, SELFPAY ==
[2021-02-14 19:42] VITALS: BMI 17.2
[2021-04-21] VITALS (8 sets, daily range): BP systolic 106–144; BP diastolic 56–65; PULSE 64–78; RESP 16–22; TEMP 36.4–37; O2SAT 95–100; BMI 15.5
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
--- NOTE | 2021-04-21 14:18 | EKG12_ITS ---
Test Reason : SOB Blood Pressure : / mmHG Vent. Rate : 061 BPM Atrial Rate : 061 BPM P-R Int : 104 ms QRS Dur : 078 ms QT Int : 412 ms P-R-T Axes : 078 033 079 degrees QTc Int : 414 ms Sinus rhythm with short CO Otherwise normal ECG Confirmed by CHIKA CEJA, YOLY ([id number]), associate entertainment editor CATHERINE CARBAJAL ([id number]) on 04/22/2021 1:02:25 PM Referred By: KAR Confirmed By:YOLY FARR MD
[2021-04-21] MEDS: Ipratropium/Albuterol Sulfate 3 ML AMPUL.NEB INHALATION (14:29)
--- NOTE | 2021-04-21 14:40 | ED.VIS.DYS ---
HPI History of Present Illness Chief Complaint: Shortness of Breath Informant: patient Onset/Context/Timing Onset: Days (3) Context: gradual Timing: Continuous Quality: Positive for Dyspnea on exertion Worsened by: Exertion Relieved by: Oxygen and Albuterol Associated Symptoms cough, rhinorrhea, ear pain, subjective, chills and green sputum; Negative for fever or sore throat Narrative Narrative: Patient presents with shortness of breath that has been getting worse over the past 2 days. Patient states it is gradually gotten worse. Patient states her breathing is worse with any exertion. Patient states that improves with oxygen. Patient states albuterol inhalers and nebulizers also help with her breathing. Patient states she is coughing up green sputum. Patient states she has some pain in her chest that is diffuse. Patient describes it as dull. Patient admits to subjective chills but denies any fevers. 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 Neurogenic bladder Neurogenic bowel Nonobstructive atherosclerosis of coronary artery NSTEMI (non-ST elevated myocardial infarction) (01/14/21) Protein calorie malnutrition Home Medications albuterol sulfate [Ventolin HFA] 1 - 2 puff INHALATION Q4H PRN 11/26/17 [History Last Taken 02/14/21] gabapentin [Neurontin] 600 mg PO QHS 11/26/17 [History Last Taken 02/13/21] albuterol sulfate 2.5 mg INHALATION Q2H PRN PRN #1 box 11/28/17 [Rx Last Taken 02/14/21] [id number]-[id number] [Trelegy Ellipta] 1 puff IH DAILY 10/16/18 [History Last Taken 02/14/21] trazodone 50 mg PO QHS PRN PRN 10/30/19 [History Last Taken 02/13/21] atorvastatin 20 mg PO QHS 06/27/20 [History Last Taken 02/13/21] carvedilol 3.125 mg PO BID 06/27/20 [History Last Taken 02/14/21] aspirin 81 mg PO DAILY 01/11/21 [History Last Taken 02/14/21] Prednisone 10 mg PO DAILY #40 tablet 01/18/21 [Rx Last Taken 02/14/21] food supplemt, lactose-reduced 120 ml PO 4X/DAY #120 liquid 01/18/21 [Rx Last Taken 02/14/21] cholecalciferol (vitamin D3) 2,000 unit PO DAILY 02/14/21 [History Last Taken 02/14/21] guaifenesin 1,200 mg PO BID PRN 02/14/21 [History Last Taken Unknown] lisinopril 2.5 mg PO DAILY 02/14/21 [History Last Taken 02/14/21] pediatric multivitamin 1 each PO DAILY 02/14/21 [History Last Taken 02/14/21] amoxicillin-pot clavulanate 875 mg PO Q12H #10 tab 02/15/21 [Rx Last Taken Unknown] doxycycline monohydrate 100 mg PO BID #10 capsule 02/15/21 [Rx Last Taken Unknown] furosemide 20 mg PO PRN PRN #15 tab 02/15/21 [Rx Last Taken Unknown] Allergy/AdvReac Type Severity Reaction Status Date / Time Sulfa (Sulfonamide Allergy FACE GETS Verified 04/21/21 13:51 Antibiotics) RED AND ITCHY codeine AdvReac Nausea Verified 04/21/21 13:51 Family History Father Kidney disease Sister Breast cancer Sister Cancer lung Surgical History History of back surgery History of breast lump removal History of hysterectomy History of left heart catheterization (LHC) (01/17/21) Social History Smoking Status: Former smoker second hand exposure: No alcohol intake: never substance use type: does not use ROS ROS ED Constitutional Constitutional ED: Reports chills; Denies fever(s) Eyes Eyes: Denies blurry vision or change in vision ENT ENT ED: Reports ear pain right and rhinorrhea; Denies sore throat Cardiovascular Cardiovascular: Reports chest pain; Denies palpitations Respiratory/Chest Respiratory/Chest: Reports cough and dyspnea Gastrointestinal Gastrointestinal: Denies nausea or vomiting Genitourinary Genitourinary ED: Denies dysuria or hematuria Musculoskeletal Musculoskeletal: Denies back pain or neck pain Integumentary Denies abscess or rash Neurologic Neurologic: Denies headache(s) or weakness Allergic/Immunologic Allergic/Immunologic ED: Denies mouth swelling or urticaria EXAM Physical Exam Const Vital Signs: 04/21/21 13:48 04/21/21 14:01 04/21/21 14:29 Temperature 97.5 F L Temperature Source Temporal Pulse Rate 78 65 Respiratory Rate 16 20 H Respiratory Effort Short of Breath Labored Accessory Muscle Use Pursed Lip Retracting Respiratory Depth Deep Respiratory Pattern Tachypnea Normal Blood Pressure 106/59 L Blood Pressure Mean 74 Pulse Ox 96 Oxygen Delivery Method Nasal Cannula Nasal Cannula Oxygen Flow Rate (L/min) 4 4 04/21/21 14:54 04/21/21 15:26 04/21/21 15:27 Temperature 98.6 F Temperature Source Oral Pulse Rate 73 64 Respiratory Rate 20 H 22 H Respiratory Effort Respiratory Depth Respiratory Pattern Blood Pressure 127/65 H Blood Pressure Mean 85 Pulse Ox 98 95 96 Oxygen Delivery Method Nasal Cannula Nasal Cannula Nasal Cannula Oxygen Flow Rate (L/min) 4 4 4 04/21/21 16:00 Temperature 97.8 F Temperature Source Oral Pulse Rate 64 Respiratory Rate 22 H Respiratory Effort Respiratory Depth Respiratory Pattern Blood Pressure 144/56 H Blood Pressure Mean 85 Pulse Ox 97 Oxygen Delivery Method Nasal Cannula Oxygen Flow Rate (L/min) 4 Positive well nourished and well developed General Appearance ED: well developed HEENT Reports moist mucous membranes Neck supple and no JVD Resp normal respiratory effort Auscultation: wheezes throughout Cardio regular rate, regular rhythm and no murmurs GI normal to inspection, nondistended, normoactive bowel sounds and non-tender Palpation: soft Extremity normal to inspection General Extremety ED: Negative for edema or tenderness General Extremity: Negative for edema Neuro oriented x3, CN's II-XII intact bilaterally and no sensory deficits noted Sensorium / Orientation: alert Motor Exam: strength 5/5 throughout Psych mental status grossly normal Skin no rashes or lesions noted MDM MDM MDM Narrative Medical decision making narrative: EKG was obtained. On my interpretation, it showed a normal sinus rhythm with a rate of 61. DC interval was slightly shortened at 104 ms, QRS interval, and QTc intervals were otherwise normal. [place] was normal. There are no acute ST or T wave changes. Portable chest x-ray was obtained. There is 1 view. On my interpretation, there are chronic changes. There is no acute infiltrate. There is no pneumothorax. Radiologist also interpreted the x-ray and agrees. CBC and comprehensive metabolic profile were within normal limits. Troponin was normal. Patient was given a DuoNeb aerosol here. Patient was given Solu-Medrol. Patient is feeling better on reevaluation. Patient was given a prescription for prednisone. Patient was instructed to continue her inhalers and aerosols at home. Patient was instructed to follow-up with her primary care physician in 3 to 5 days. Patient understood and was agreeable with the plan. All questions were answered. Lab Data Attestation: I reviewed the patient's lab results. Labs: Laboratory Results - last 24 hr 04/21/21 04/21/21 14:38 14:38 WBC 7.3 RBC 3.74 L Hgb 11.6 L Hct 37.2 MCV 99.5 H MCH 31.0 MCHC 31.2 L RDW Std Deviation 51.2 H RDW Coeff of Ashu 14.0 Plt Count 299 MPV 10.1 Immature Gran % (Auto) 0.300 Neut % (Auto) 66.8 Lymph % (Auto) 16.8 L [place] % (Auto) 9.4 Eos % (Auto) 6.0 H Baso % (Auto) 0.7 Absolute Neuts (auto) 4.9 Absolute Lymphs (auto) 1.23 Nucleated RBC % 0 Sodium 135 L Potassium 4.4 Chloride 100 Carbon Dioxide 32.0 Anion Gap 3 L BUN 18 Creatinine 1.12 H Estim Creat Clear Calc 29.35 Est GFR (MDRD) Af Amer 61 Est GFR (MDRD) Non-Af 50 L BUN/Creatinine Ratio 16.1 Glucose 88 Calcium 8.2 L Total Bilirubin 0.40 AST 23 ALT 12 L Alkaline Phosphatase 146 H Troponin I High Sens 6.2 Total Protein 6.1 L Albumin 3.0 L Globulin 3.1 Albumin/Globulin Ratio 1.0 Radiography Chest X-Ray - ED: 1 View, Read by ED Physician, Read by Radiologist, Unchanged and Chronic Changes Diagnostic Testing: Radiology Impression Chest X-Ray 04/21/21 15:26 IMPRESSION: Emphysema without pneumonia or atelectasis. Electronically Signed: Joseph Virk MD at 15:43 EDT Tel , Service support , EKG Initial EKG: Attestation: I personally reviewed and interpreted this EKG as follows: Interpretation: Sinus Rhythm (61) and No Acute Injury Pattern Prior EKG tracings: available for review Prior: Unchanged (02/14/2021) Discharge Plan Triage Chief Complaint: Shortness of Breath ED Provider: Gerry Austin Dx/Rx/DC Orders Clinical Impression: COPD (chronic obstructive pulmonary disease) Instructions: ED COPD Flare Prescriptions: No Action gabapentin [Neurontin] 300 MG capsule 600 mg PO QHS RF: 0 albuterol sulfate [Ventolin HFA] 108 Hfa.Aer.Ad 1 - 2 puff inhalation Q4H PRN (Reason: Sob &/Or Wheezing) RF: 0 albuterol sulfate 2.5 MG/3 ML solution for nebulization 2.5 mg INHALATION Q2H PRN PRN (Reason: SOB &/OR WHEEZING) Qty: 1 RF: 0 tkeghqigwxc-xsdgajemn-gygkpfvj [Trelegy Ellipta] 1 EACH Blst.W.Dev 1 puff IH DAILY RF: 0 trazodone 50 MG tablet 50 mg PO QHS PRN PRN (Reason: Sleep) RF: 0 atorvastatin 20 MG tablet 20 mg PO QHS RF: 0 carvedilol 3.125 MG tablet 3.125 mg PO BID RF: 0 aspirin 81 MG tablet,chewable 81 mg PO DAILY RF: 0 food supplemt, lactose-reduced 120 ML liquid 120 ml PO 4X/DAY Qty: 120 RF: 5 Prednisone 10 MG tablet 10 mg PO DAILY Qty: 40 RF: 0 guaifenesin 1,200 MG tablet 1,200 mg PO BID PRN (Reason: Congestion) RF: 0 lisinopril 2.5 MG tablet 2.5 mg PO DAILY RF: 0 pediatric multivitamin 1 EACH tablet,chewable 1 each PO DAILY RF: 0 cholecalciferol (vitamin D3) 2,000 UNIT capsule 2,000 unit PO DAILY RF: 0 amoxicillin-pot clavulanate 875 MG tablet 875 mg PO Q12H Qty: 10 RF: 0 doxycycline monohydrate 100 MG capsule 100 mg PO BID Qty: 10 RF: 0 furosemide 20 MG tablet 20 mg PO PRN PRN (Reason: LE swelling) Qty: 15 RF: 0 Primary Care Provider: Matt Peace Referrals: Matt Peace MD [Primary Care Provider] - 3-5 Days Disposition Disposition: Home, Self Care
[2021-04-21 14:53] LABS: Absolute Lymphocyte Count 1.23 X10^3/uL (0.83-4.51); Absolute Neutrophil Count 4.9 X10^3/uL (2.0-7.7); Basophil# 0.05 X10^3/uL; Basophil% 0.7 % (0-1); Eosinophil# 0.44 X10^3/uL; Hematocrit 37.2 % (37-47); Hemoglobin 11.6 g/dL (12.0-15.0); Lymphocyte # 1.23 X10^3/ul (0.83-4.51); Lymphocyte % 16.8 % (19-41); Mean Corp Hgb Conc 31.2 g/dL (32-36); Mean Corpuscular Volume 99.5 fL (81-99); Mean Platelet Vol. 10.1 fl (6.2-12.0); Monocyte# 0.69 X10^3/uL; Monocyte% 9.4 % (0-10); NRBC Flagged by Analyzer 0 % (0-5); Neutrophil % 66.8 % (47-70); Platelet Count 299 K/mm3 (150-450); RBC Distribution Width SD 51.2 fl (35.1-43.9); Red Blood Count 3.74 M/mm3 (4.2-5.4); White Blood Count 7.3 K/mm3 (4.4-11.0)
[2021-04-21] MEDS: MethylPREDNISolone 125 MG/2 ML Vial 60 MG IV (14:55)
[2021-04-21 15:09] LABS: AST(SGOT) 23 U/L (15-37); Alanine Aminotransfer ALT/SGPT 12 U/L (13-56); Alkaline Phosphatase 146 U/L (45-117); Anion Gap 3 (5-15); BUN 18 mg/dL (7-18); BUN/Creat Ratio 16.1 RATIO (10-20); Calcium,Total 8.2 mg/dL (8.5-10.1); Chloride 100 mmol/L (98-107); Creatinine, Serum 1.12 mg/dL (0.55-1.02); EST Glomerular Filtration Rate 50 mL/min (>60); Est Glom Filt Rate - Afr Amer 61 mL/min (>60); Estimated Creatinine Clearance 29.35 ml/min; Globulin 3.1 g/dL (2.2-4.2); Glucose 88 mg/dL (74-106); Potassium 4.4 mmol/L (3.5-5.1); Protein, Total 6.1 g/dL (6.4-8.2); Sodium Level 135 mmol/L (136-145); Troponin-I HS 6.2 pg/mL (3.0-53.7)
--- NOTE | 2021-04-21 15:26 | RAD_ITS ---
STUDY: X-RAY CHEST REASON FOR EXAM: Female, 75 years old. Dyspnea TECHNIQUE: Single AP portable view of the chest. COMPARISON: 02/14/2021 FINDINGS: Status post anterior cervical discectomy and fusion lower cervical spine. There is hyperinflation of the lungs consistent with chronic obstructive lung disease (COPD). There is no demonstrated pleural abnormality. Normal size heart. Normal mediastinum and marco antonio. Normal visualized pulmonary arteries. Normal visualized aortic arch and descending thoracic aorta. Normal visualized thoracic spine. Normal visualized ribs, clavicles, and shoulders. There is no demonstrated abnormality of the visualized soft tissue structures of the upper abdomen. RAD/Chest 1 View (Portable) IMPRESSION: Emphysema without pneumonia or atelectasis. Electronically Signed: Joseph Virk MD at 15:43 EDT Tel , Service support ,
== END 2021-04-21 16:41 | disposition home or self-care (01) ==
PROVIDERS: Emergency Provider Emergency Medicine; PCP Family Medicine
DX: J44.9 Chronic obstructive pulmonary disease, unspecified (principal); I10 Essential (primary) hypertension; E78.5 Hyperlipidemia, unspecified; Z79.51 Long term (current) use of inhaled steroids; Z79.899 Other long term (current) drug therapy; Z87.891 Personal history of nicotine dependence
CPT/HCPCS: 71045; 80053; 84484; 85025; 93005; 94640; 96374; 99285; A4216

== ENCOUNTER 2021-06-29 14:59 | Emergency (ER) | payer MEDICARE, OTHER, SELFPAY ==
[2021-06-29] VITALS (8 sets, daily range): BP systolic 104–141; BP diastolic 58–93; PULSE 65–69; RESP 18–19; TEMP 36.4–36.5; O2SAT 95–100; BMI 15.5
--- NOTE | 2021-06-29 15:25 | EKG12_ITS ---
Test Reason : SOB Blood Pressure : / mmHG Vent. Rate : 058 BPM Atrial Rate : 058 BPM P-R Int : 102 ms QRS Dur : 080 ms QT Int : 414 ms P-R-T Axes : 082 057 078 degrees QTc Int : 406 ms Sinus bradycardia with short OR Otherwise normal ECG Confirmed by CASEY CEJA, RICARDO ([id number]), editor publications CATHERINE CARBAJAL ([id number]) on 06/30/2021 12:55:57 PM Referred By: BRENDEN Confirmed By:ROOPA PEÑA MD
--- NOTE | 2021-06-29 15:34 | ED.VIS.DYS ---
HPI History of Present Illness Chief Complaint: Shortness of Breath Informant: patient Narrative Narrative: Patient presents with worsening COPD over the last 3 or 4 days and possibly a little longer. She states she has been using her nebulizer and MDI more. It helps a little bit but does not last as long. She is bringing up more sputum of a darker color but no blood. She denies fever but states she never gets fevers. She has no chest pain. She is on 2 L at rest and will turn it up to 4 L to walk around. However, she has been having a lot of trouble getting around in her 4 story house recently. She has quit smoking a while ago. She also has some dysuria. She states she gets frequent UTIs due to a back surgery problem. The dysuria is not her primary reason for coming in. Oxygen and breathing treatments makes her breathing better and activity makes it worse. Patient has not had Covid or the vaccines. She has had scheduled time to get vaccines twice but both times she got sick and could not receive it. 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 Neurogenic bladder Neurogenic bowel Nonobstructive atherosclerosis of coronary artery NSTEMI (non-ST elevated myocardial infarction) (01/14/21) Protein calorie malnutrition Home Medications albuterol sulfate [Ventolin HFA] 1 - 2 puff INHALATION Q4H PRN 11/26/17 [History Last Taken 02/14/21] gabapentin [Neurontin] 600 mg PO QHS 11/26/17 [History Last Taken 02/13/21] albuterol sulfate 2.5 mg INHALATION Q2H PRN PRN #1 box 11/28/17 [Rx Last Taken 02/14/21] [id number]-celnfwobs-zurjibvp [Trelegy Ellipta] 1 puff IH DAILY 10/16/18 [History Last Taken 02/14/21] trazodone 50 mg PO QHS PRN PRN 10/30/19 [History Last Taken 02/13/21] atorvastatin 20 mg PO QHS 06/27/20 [History Last Taken 02/13/21] carvedilol 3.125 mg PO BID 06/27/20 [History Last Taken 02/14/21] aspirin 81 mg PO DAILY 01/11/21 [History Last Taken 02/14/21] Prednisone 10 mg PO DAILY #40 tablet 01/18/21 [Rx Last Taken 02/14/21] food supplemt, lactose-reduced 120 ml PO 4X/DAY #120 liquid 01/18/21 [Rx Last Taken 02/14/21] cholecalciferol (vitamin D3) 2,000 unit PO DAILY 02/14/21 [History Last Taken 02/14/21] guaifenesin 1,200 mg PO BID PRN 02/14/21 [History Last Taken Unknown] lisinopril 2.5 mg PO DAILY 02/14/21 [History Last Taken 02/14/21] pediatric multivitamin 1 each PO DAILY 02/14/21 [History Last Taken 02/14/21] doxycycline monohydrate 100 mg PO BID #10 capsule 02/15/21 [Rx Last Taken Unknown] furosemide 20 mg PO PRN PRN #15 tab 02/15/21 [Rx Last Taken Unknown] doxycycline monohydrate 100 mg PO BID #20 cap 06/29/21 [Rx Last Taken Unknown] hydroxyzine HCl 25 mg PO QHS 06/29/21 [History Last Taken Unknown] prednisone 60 mg PO DAILY #15 tab 06/29/21 [Rx Last Taken Unknown] Allergy/AdvReac Type Severity Reaction Status Date / Time Sulfa (Sulfonamide Allergy FACE GETS Verified 06/29/21 15:03 Antibiotics) RED AND ITCHY codeine AdvReac Nausea Verified 06/29/21 15:03 Family History Father Kidney disease Sister Breast cancer Sister Cancer lung Surgical History History of back surgery History of breast lump removal History of hysterectomy History of left heart catheterization (LHC) (01/17/21) Social History Smoking Status: Former smoker second hand exposure: No alcohol intake: never substance use type: does not use ROS ROS ED Constitutional Constitutional ED: Denies chills or fever(s) Eyes Eyes: Denies change in vision ENT ENT ED: Denies rhinorrhea or sore throat Cardiovascular Cardiovascular: Denies chest pain or palpitations Respiratory/Chest Respiratory/Chest: Reports cough, dyspnea, dyspnea on exertion and sputum Gastrointestinal Gastrointestinal: Denies abdominal pain, nausea or vomiting Genitourinary Genitourinary ED: Reports dysuria; Denies hematuria Musculoskeletal Musculoskeletal: Denies myalgias Integumentary Denies rash Neurologic Neurologic: Denies headache(s), paresthesias or weakness Psychiatric Psychiatric: Denies anxiety Endocrine Endocrinology: Denies polydipsia or polyuria Hematologic/Lymphatic Hematologic/Lymphatic: Denies easy bruising Allergic/Immunologic Allergic/Immunologic ED: Denies urticaria EXAM Physical Exam Const Vital Signs: 06/29/21 15:00 06/29/21 15:03 06/29/21 15:11 Temperature 97.6 F L 97.6 F L Temperature Source Temporal Temporal Pulse Rate 65 66 Respiratory Rate 18 18 Respiratory Effort Short of Breath Respiratory Depth Normal Respiratory Pattern Normal Blood Pressure 104/92 H 131/61 H Blood Pressure Mean 96 84 Pulse Ox 100 96 Oxygen Delivery Method Nasal Cannula Nasal Cannula Nasal Cannula Oxygen Flow Rate (L/min) 4 2 4 06/29/21 15:12 06/29/21 16:03 06/29/21 17:00 Temperature 97.7 F L 97.6 F L Temperature Source Temporal Temporal Pulse Rate 69 68 Respiratory Rate 18 19 H Respiratory Effort Respiratory Depth Respiratory Pattern Blood Pressure 131/58 H 141/93 H Blood Pressure Mean 82 109 Pulse Ox 96 96 95 Oxygen Delivery Method Nasal Cannula Nasal Cannula Nasal Cannula Oxygen Flow Rate (L/min) 2 2 2 06/29/21 17:03 Temperature Temperature Source Pulse Rate 69 Respiratory Rate Respiratory Effort Respiratory Depth Respiratory Pattern Blood Pressure Blood Pressure Mean Pulse Ox Oxygen Delivery Method Oxygen Flow Rate (L/min) Positive well nourished, well developed and cachectic General Appearance ED: well developed and cachectic Nutritional Appearance: cachectic HEENT Negative for trauma Eyes PERRL Neck no JVD Resp Resp Narrative: Patient has diffuse tight inspiratory and expiratory wheezing. Significant reduction of respiratory volume. Effort and Inspection: Negative for pain with movement Auscultation: wheezes and diminished lung sounds Cardio regular rate and regular rhythm GI non-tender and non-distended Palpation: soft Back/Spine normal to inspection Extremity normal to inspection Extremity Narrative: Very thin frail extremities General Extremety ED: Negative for edema or tenderness General Extremity: Negative for edema Neuro oriented x3 Sensorium / Orientation: alert Psych mental status grossly normal Skin Lesions: no lesions Rashes: no rashes MDM MDM MDM Narrative Medical decision making narrative: Blood work no marked abnormalities. Carbon dioxide is high but this is chronic for the patient. Minimal elevation in creatinine. Troponin and lactate are negative. Urine is actually clean. I went back to check patient. She states she felt well and wanted to go home. I have concerns about this due to her level of illness. However she was very adamant about going home. She still does have some wheezing but is moving much more air. She tells me she wheezes all the time and it never resolves. I told the patient that we will walk her on her level of oxygen at 4 L. This is what she uses to walk with. As long she felt well and did not desaturate we will discuss going home. Her lowest O2 sat was 91% on that. We will get her home at this time. I will add a course of steroids. We also have antibiotics because she has had a change in the character and quantity of sputum. I told her to have a very low threshold for returning. She is welcome to call 911 at any time. Lab Data Attestation: I reviewed the patient's lab results. Labs: Laboratory Results - last 24 hr 06/29/21 06/29/21 06/29/21 15:45 15:45 15:45 WBC 9.7 RBC 3.75 L Hgb 11.4 L Hct 36.5 L MCV 97.3 MCH 30.4 MCHC 31.2 L RDW Std Deviation 45.8 H RDW Coeff of Ashu 12.8 Plt Count 241 MPV 10.1 Immature Gran % (Auto) 0.400 Neut % (Auto) 69.7 Lymph % (Auto) 15.9 L [place] % (Auto) 7.6 Eos % (Auto) 5.9 H Baso % (Auto) 0.5 Absolute Neuts (auto) 6.8 Absolute Lymphs (auto) 1.55 Nucleated RBC % 0 Sodium 134 L Potassium 4.2 Chloride 96 L Carbon Dioxide 36.0 H Anion Gap 2 L BUN 19 H Creatinine 1.16 H Estim Creat Clear Calc 28.33 Est GFR (MDRD) Af Amer 59 L Est GFR (MDRD) Non-Af 48 L BUN/Creatinine Ratio 16.4 Glucose 85 Lactic Acid 0.8 Calcium 8.5 Troponin I High Sens 8 Urine Color Urine Clarity Urine pH Ur Specific [place] Urine Protein Urine Glucose (UA) Urine Ketones Urine Occult Blood Urine Nitrite Urine Bilirubin Urine Urobilinogen Ur Leukocyte Esterase Urine RBC Urine WBC Ur Squamous Epith Cells Urine Bacteria Urine Mucus 06/29/21 16:24 WBC RBC Hgb Hct MCV MCH MCHC RDW Std Deviation RDW Coeff of Ashu Plt Count MPV Immature Gran % (Auto) Neut % (Auto) Lymph % (Auto) [place] % (Auto) Eos % (Auto) Baso % (Auto) Absolute Neuts (auto) Absolute Lymphs (auto) Nucleated RBC % Sodium Potassium Chloride Carbon Dioxide Anion Gap BUN Creatinine Estim Creat Clear Calc Est GFR (MDRD) Af Amer Est GFR (MDRD) Non-Af BUN/Creatinine Ratio Glucose Lactic Acid Calcium Troponin I High Sens Urine Color Yellow Urine Clarity Clear Urine pH 7.0 Ur Specific [place] 1.010 Urine Protein 15 H Urine Glucose (UA) Normal Urine Ketones Negative Urine Occult Blood Negative Urine Nitrite Negative Urine Bilirubin Negative Urine Urobilinogen Normal Ur Leukocyte Esterase Negative Urine RBC 0-5 SEEN Urine WBC 0-5 SEEN Ur Squamous Epith Cells 0-5 SEEN Urine Bacteria RARE Urine Mucus 0 SEEN Radiography Diagnostic Testing: Radiology Impression Chest X-Ray 06/29/21 16:05 IMPRESSION: Hyperaeration. Electronically Signed: Isaac Almanza DO at 16:16 EDT Tel [phone], Service support , EKG Initial EKG: Comments: EKG done for dyspnea read by me shows sinus rhythm with borderline bradycardic rate of 58. She does have some mild ST change mostly in the V1 through V3 leads. This is similar but slightly more than the past. No ventricular ectopy. CA interval, QRS duration, QTc are normal. Discharge Plan Triage Chief Complaint: Shortness of Breath ED Provider: Robby Higgins Dx/Rx/DC Orders Clinical Impression: COPD with acute exacerbation Instructions: ED COPD Flare Prescriptions: New prednisone 20 MG tablet 60 mg PO DAILY Qty: 15 RF: 0 doxycycline monohydrate 100 MG capsule 100 mg PO BID Qty: 20 RF: 0 No Action gabapentin [Neurontin] 300 MG capsule 600 mg PO QHS RF: 0 albuterol sulfate [Ventolin HFA] 108 HFA aerosol inhaler 1 - 2 puff inhalation Q4H PRN (Reason: Sob &/Or Wheezing) RF: 0 albuterol sulfate 2.5 MG/3 ML solution for nebulization 2.5 mg INHALATION Q2H PRN PRN (Reason: SOB &/OR WHEEZING) Qty: 1 RF: 0 expejchefbh-aydtatovr-mxkvjroy [Trelegy Ellipta] 1 EACH blister with device 1 puff IH DAILY RF: 0 trazodone 50 MG tablet 50 mg PO QHS PRN PRN (Reason: Sleep) RF: 0 atorvastatin 20 MG tablet 20 mg PO QHS RF: 0 carvedilol 3.125 MG tablet 3.125 mg PO BID RF: 0 aspirin 81 MG tablet,chewable 81 mg PO DAILY RF: 0 food supplemt, lactose-reduced 120 ML liquid 120 ml PO 4X/DAY Qty: 120 RF: 5 Prednisone 10 MG tablet 10 mg PO DAILY Qty: 40 RF: 0 guaifenesin 1,200 MG tablet 1,200 mg PO BID PRN (Reason: Congestion) RF: 0 lisinopril 2.5 MG tablet 2.5 mg PO DAILY RF: 0 pediatric multivitamin 1 EACH tablet,chewable 1 each PO DAILY RF: 0 cholecalciferol (vitamin D3) 2,000 UNIT capsule 2,000 unit PO DAILY RF: 0 doxycycline monohydrate 100 MG capsule 100 mg PO BID Qty: 10 RF: 0 furosemide 20 MG tablet 20 mg PO PRN PRN (Reason: LE swelling) Qty: 15 RF: 0 hydroxyzine HCl 25 mg tablet 25 mg PO QHS RF: 0 Primary Care Provider: Matt Peace Referrals: Matt Peace MD [Primary Care Provider] - 3-5 Days if not improving Disposition Disposition: Home, Self Care
[2021-06-29] MEDS: Ipratropium/Albuterol Sulfate 3 ML AMPUL.NEB INHALATION (15:51)
[2021-06-29] MEDS: MethylPREDNISolone 125 MG/2 ML Vial IV (15:54)
[2021-06-29 15:56] LABS: Absolute Lymphocyte Count 1.55 X10^3/uL (0.83-4.51); Absolute Neutrophil Count 6.8 X10^3/uL (2.0-7.7); Basophil# 0.05 X10^3/uL; Basophil% 0.5 % (0-1); Eosinophil# 0.57 X10^3/uL; Eosinophils% 5.9 % (0-5); Hematocrit 36.5 % (37-47); Hemoglobin 11.4 g/dL (12.0-15.0); Lymphocyte # 1.55 X10^3/ul (0.83-4.51); Lymphocyte % 15.9 % (19-41); Mean Corp Hgb Conc 31.2 g/dL (32-36); Mean Corpuscular Hgb 30.4 pg (27.0-32.0); Mean Corpuscular Volume 97.3 fL (81-99); Mean Platelet Vol. 10.1 fl (6.2-12.0); Monocyte# 0.74 X10^3/uL; Monocyte% 7.6 % (0-10); NRBC Flagged by Analyzer 0 % (0-5); Neutrophil # 6.79 X10^3/uL (2.7-7.7); Neutrophil % 69.7 % (47-70); Platelet Count 241 K/mm3 (150-450); RBC Distribution Width CV 12.8 % (11.6-14.6); RBC Distribution Width SD 45.8 fl (35.1-43.9); Red Blood Count 3.75 M/mm3 (4.2-5.4); White Blood Count 9.7 K/mm3 (4.4-11.0)
--- NOTE | 2021-06-29 16:05 | RAD_ITS ---
STUDY: X-RAY CHEST REASON FOR EXAM: Female, 75 years old. Cough sob TECHNIQUE: Frontal view COMPARISON: 02/14/2021 FINDINGS: The lungs are hyperaerated. There is no demonstrated pleural abnormality. Normal size heart. Normal mediastinum and marco antonio. Normal visualized pulmonary arteries. Calcified aortic arch and descending thoracic aorta. Normal visualized thoracic spine. Stable surgical fusion at the lower cervical levels. Normal visualized ribs, clavicles, and shoulders. There is no demonstrated abnormality of the visualized soft tissue structures of the upper abdomen. RAD/Chest 1 View (Portable) IMPRESSION: Hyperaeration. Electronically Signed: Isaac Almanza DO at 16:16 EDT Tel [phone], Service support ,
[2021-06-29 16:19] LABS: Lactic Acid 0.8 mmol/L (0.4-1.9)
[2021-06-29 16:20] LABS: Anion Gap 2 (5-15); BUN 19 mg/dL (7-18); BUN/Creat Ratio 16.4 RATIO (10-20); Calcium,Total 8.5 mg/dL (8.5-10.1); Chloride 96 mmol/L (98-107); Creatinine, Serum 1.16 mg/dL (0.55-1.02); EST Glomerular Filtration Rate 48 mL/min (>60); Est Glom Filt Rate - Afr Amer 59 mL/min (>60); Estimated Creatinine Clearance 28.33 ml/min; Glucose 85 mg/dL (74-106); Potassium 4.2 mmol/L (3.5-5.1); Sodium Level 134 mmol/L (136-145); Troponin-I HS 8 pg/mL (3.0-54.0)
[2021-06-29 16:30] LABS: Mucous, Urine 0 SEEN /hpf (<or=2+)
[2021-06-29 16:38] LABS: Color, Urine Yellow (Yellow); Glucose, Dipstick Normal (Normal); Ketone-Dipstick Negative (Negative); Leukocyte Esterase-Dipstick Negative /ul (Negative); Nitrite-Dipstick Negative (Negative); Occult Blood-Urine Negative /ul (Negative); Protein-Dipstick 15 mg/dl (Negative); Urine Bilirubin Dipstick Negative (Negative); Urine Clarity Clear (Clear); Urine Urobilinogen Normal (Normal)
[2021-06-29 16:54] LABS: Squamous Epithelial Cells - UA 0-5 SEEN /hpf (5-10)
[2021-06-29 16:56] LABS: White Blood Cells 0-5 SEEN /hpf (0-5)
[2021-06-29 16:57] LABS: Bacteria RARE /hpf (None Seen); Red Blood Cells-Urine 0-5 SEEN /hpf (0-5)
== END 2021-06-29 19:14 | disposition home or self-care (01) ==
PROVIDERS: Emergency Provider Emergency Medicine; PCP Family Medicine
DX: J44.1 Chronic obstructive pulmonary disease with (acute) exacerbation (principal); I10 Essential (primary) hypertension; E78.5 Hyperlipidemia, unspecified; Z99.81 Dependence on supplemental oxygen; Z87.891 Personal history of nicotine dependence; Z79.51 Long term (current) use of inhaled steroids; Z79.899 Other long term (current) drug therapy
CPT/HCPCS: 71045; 80048; 81001; 83605; 84484; 85025; 87040; 87086; 87088; 87426; 93005; 96374; 99284; A4216

== ENCOUNTER 2021-07-25 21:16 | Emergency (ER) | payer MEDICARE, OTHER, SELFPAY ==
[2021-07-25 21:17] VITALS: BP 102/83; PULSE 95; RESP 20; TEMP 36.7; O2SAT 92; BMI 16.2
--- NOTE | 2021-07-25 21:21 | RAD_ITS ---
STUDY: X-RAY CHEST REASON FOR EXAM: Female, 75 years old. SOB TECHNIQUE: Frontal view COMPARISON: 06/29/2021. FINDINGS: The lungs are hyperaerated with mild basilar atelectasis. There is no demonstrated pleural abnormality. Normal size heart. Normal mediastinum and marco antonio. Normal visualized pulmonary arteries. Calcified aortic arch and descending thoracic aorta. Normal visualized thoracic spine. Status post surgical fusion at the lower cervical levels. Normal visualized ribs, clavicles, and shoulders. There is no demonstrated abnormality of the visualized soft tissue structures of the upper abdomen. RAD/Chest 1 View (Portable) IMPRESSION: Hyperaeration. Basilar atelectasis. Electronically Signed: Isaac Almanza DO at 22:23 EDT Tel [phone], Service support ,
[2021-07-25 21:30] VITALS: BP 102/83; PULSE 20; RESP 20; TEMP 36.7; O2SAT 92
[2021-07-25 21:34] VITALS: O2SAT 100
--- NOTE | 2021-07-25 21:42 | EKG12_ITS ---
Test Reason : SOB Blood Pressure : / mmHG Vent. Rate : 069 BPM Atrial Rate : 069 BPM P-R Int : 120 ms QRS Dur : 082 ms QT Int : 374 ms P-R-T Axes : 084 069 081 degrees QTc Int : 400 ms Normal sinus rhythm Normal ECG Confirmed by DECLAN CEJA, GERBER ([id number]), videotape editor CATHERINE CARBAJAL ([id number]) on 07/27/2021 11:36:11 AM Referred By: YAYA Confirmed By:GERBER MANRIQUEZ MD
--- NOTE | 2021-07-25 21:53 | ED.VIS.DYS ---
HPI History of Present Illness Chief Complaint: Shortness of Breath Informant: patient and family Onset/Context/Timing Onset: Days Context: gradual Timing: Continuous Quality: Positive for Wheezing Current Severity: Mild Maximum Severity: Mild Worsened by: Coughing Relieved by: Nothing Associated Symptoms cough and clear sputum Chest Pain: Positive for None Narrative Narrative: 75-year-old female history of COPD on 4 L home O2. States for the last several days she has had more shortness of breath. Recently was on antibiotics and steroids but those have since been completed. She denies any chest pain. She denies any fever or chills. She is clear sputum that is unchanged. She tried to be vaccinated for Covid but was sick both times and has never received the vaccine. PE Risk Factors: Negative for Cancer, OCP + Smoking + > 35, Prior DVT or PE, Recent immobilization, Recent surgery and Recent travel Prior similar symptoms: Yes Recent Illness/Hospitalization: No PFSH PFSH Medical History (Updated 07/25/21 @ 22:[address] Tyler Owens MD) JIM (acute kidney injury) Cardiac dysrhythmia COPD (chronic obstructive pulmonary disease) COPD (chronic obstructive pulmonary disease) COPD with acute exacerbation Elevated troponin Essential (primary) hypertension GI bleed Guaiac positive stools HLD (hyperlipidemia) Hyponatremia Infestation by cimex lectularius Neurogenic bladder Neurogenic bowel Nonobstructive atherosclerosis of coronary artery (Unknown) NSTEMI (non-ST elevated myocardial infarction) (01/14/21) Protein calorie malnutrition Home Medications albuterol sulfate [Ventolin HFA] 1 - 2 puff INHALATION Q4H PRN 11/26/17 [History Last Taken 02/14/21] gabapentin [Neurontin] 600 mg PO QHS 11/26/17 [History Last Taken 02/13/21] albuterol sulfate 2.5 mg INHALATION Q2H PRN PRN #1 box 11/28/17 [Rx Last Taken 02/14/21] Trelegy Ellipta 1 puff IH DAILY 10/16/18 [History Last Taken 02/14/21] trazodone 50 mg PO QHS PRN PRN 10/30/19 [History Last Taken 02/13/21] atorvastatin 20 mg PO QHS 06/27/20 [History Last Taken 02/13/21] carvedilol 3.125 mg PO BID 08/30/20 [History Last Taken 02/14/21] aspirin 81 mg PO DAILY 01/11/21 [History Last Taken 02/14/21] cholecalciferol (vitamin D3) 2,000 unit PO DAILY 02/14/21 [History Last Taken 02/14/21] guaifenesin [Mucinex] 1,200 mg PO BID PRN 02/14/21 [History Last Taken Unknown] lisinopril 2.5 mg PO DAILY 02/14/21 [History Last Taken 02/14/21] pediatric multivitamin 1 each PO DAILY 02/14/21 [History Last Taken 02/14/21] furosemide 20 mg PO PRN PRN #15 tab 02/15/21 [Rx Last Taken Unknown] hydroxyzine HCl 25 mg PO QHS 06/29/21 [History Last Taken Unknown] food supplemt, lactose-reduced [Ensure Enlive] 120 ml PO 4X/DAY 07/25/21 [History Last Taken Unknown] prednisone 40 mg PO DAILY 7 Days #14 tab 07/25/21 [Rx Last Taken Unknown] Allergy/AdvReac Type Severity Reaction Status Date / Time Sulfa (Sulfonamide Allergy FACE GETS Verified 07/25/21 21:19 Antibiotics) RED AND ITCHY codeine AdvReac Nausea Verified 07/25/21 21:19 Family History Father Kidney disease Sister Breast cancer Sister Cancer lung Surgical History History of back surgery History of breast lump removal History of hysterectomy History of left heart catheterization (LHC) (01/17/21) Social History Smoking Status: Former smoker second hand exposure: No alcohol intake: never substance use type: does not use ROS ROS ED ROS Narrative Shortness of breath. Review of Systems ROS Unobtainable: Denies due to encephalopathy Constitutional Constitutional ED: Denies chills or fever(s) Eyes Eyes: Denies blurry vision or change in vision ENT ENT ED: Denies ear pain or sore throat Cardiovascular Cardiovascular: Denies chest pain or palpitations Respiratory/Chest Respiratory/Chest: Reports cough and dyspnea Gastrointestinal Gastrointestinal: Denies abdominal pain, diarrhea, nausea or vomiting Genitourinary Genitourinary ED: Denies dysuria or hematuria Musculoskeletal Musculoskeletal: Denies myalgias Integumentary Denies rash Neurologic Neurologic: Denies headache(s) Psychiatric Psychiatric: Denies depression Endocrine Endocrinology: Denies polyuria Hematologic/Lymphatic Hematologic/Lymphatic: Denies easy bruising Allergic/Immunologic Allergic/Immunologic ED: Denies urticaria EXAM Physical Exam Narrative Exam Narrative: Elderly female no acute distress vital signs are stable pulse ox on 2 L is 92%. On 3 L is 94+ percent. She is in no distress. HEENT exam unremarkable. Neck nontender no JVD. Lungs coarse breath sounds very few scattered wheezes. No rales or rhonchi. Equal symmetrical. Heart regular rate and rhythm rate about 90 no murmur. Abdomen soft nontender normal bowel sounds no peritoneal signs. Moving all 4 extremities. Calves are nontender without edema or cords. Neurologically she is awake and alert with no focal motor deficits. Const Vital Signs: 07/25/21 21:17 07/25/21 21:30 07/25/21 21:34 Temperature 98.0 F 98.0 F Temperature Source Temporal Temporal Pulse Rate 95 20 L Respiratory Rate 20 H 20 H Respiratory Effort Short of Breath Respiratory Pattern Tachypnea Blood Pressure 102/83 H 102/83 H Blood Pressure Mean 89 89 Pulse Ox 92 92 Oxygen Delivery Method Nasal Cannula Nasal Cannula Nasal Cannula Oxygen Flow Rate (L/min) 2 2 3 07/25/21 23:22 Temperature Temperature Source Pulse Rate 66 Respiratory Rate 27 H Respiratory Effort Respiratory Pattern Normal Blood Pressure Blood Pressure Mean Pulse Ox Oxygen Delivery Method Oxygen Flow Rate (L/min) Positive well nourished and well developed; Negative for obese, cachectic, contractures or unkempt General Appearance ED: well developed and NAD; Negative for unkempt, cachectic, contractures or pallor Nutritional Appearance: Negative for cachectic or obese HEENT Reports moist mucous membranes atraumatic; Negative for trauma or tenderness Eyes PERRL and EOMs intact bilaterally Neck no lymphadenopathy, supple, no meningeal signs and no JVD General: Negative for tenderness Resp normal respiratory effort and No clear to auscultation bilaterally Effort and Inspection: Negative for pain with movement Auscultation: wheezes; Negative for rales, rhonchi or diminished lung sounds Cardio regular rate, regular rhythm, S1 normal heart sound, S2 normal heart sound and no murmurs GI non-tender, non-distended and no masses Auscultation: normoactive bowel sounds Palpation: soft; Negative for tender, guarding or rebound tenderness present Back/Spine no CVA tenderness and normal to inspection General Back: Negative for CVA tenderness or tenderness Extremity normal to inspection General Extremety ED: Negative for edema or tenderness General Extremity: Negative for edema Neuro oriented x3 Sensorium / Orientation: alert, oriented to person, oriented to place and oriented to time; Negative for orientation impaired, confused, lethargic or stuporous Motor Exam: strength 5/5 throughout Psych mental status grossly normal Appearance: Negative for unkempt Thought Process: normal thought process Skin no wounds General Skin Exam: Negative for jaundice or pallor Lesions: no lesions Rashes: no rashes MDM MDM MDM Narrative Medical decision making narrative: Older female suspect exacerbation of COPD. Treated with aerosols and p.o. prednisone. She is afebrile I do not suspect pneumonia. I do not think she will need antibiotics. She will undergo a work-up including chest x-ray EKG labs. And reevaluate. At this time I think there is a good chance she will be able to be discharged home. Repeat exam at 11:25 PM patient doing well. She will be discharged home on prednisone. I do not think she needs antibiotics at this time. 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 Return if worse. Use her aerosols at home. Lab Data Attestation: I reviewed the patient's lab results. Lab results narrative: CBC shows a white count of 7. Hemoglobin 9.6. This is consistent with the patient's baseline anemia between 9 and 11. BMP shows sodium 132. Gap of 3. Normal creatinine. Glucose of 89. Troponin IX. Labs: Laboratory Results - last 24 hr 07/25/21 07/25/21 07/25/21 22:30 22:30 22:30 WBC 7.3 RBC 3.17 L Hgb 9.6 L Hct 30.6 L MCV 96.5 MCH 30.3 MCHC 31.4 L RDW Std Deviation 43.8 RDW Coeff of Ashu 12.2 Plt Count 239 MPV 9.7 Immature Gran % (Auto) 0.300 Neut % (Auto) 58.1 Lymph % (Auto) 14.3 L [place] % (Auto) 8.9 Eos % (Auto) 17.7 H Baso % (Auto) 0.7 Absolute Neuts (auto) 4.3 Absolute Lymphs (auto) 1.05 Nucleated RBC % 0 Sodium 132 L Potassium 3.8 Chloride 92 L Carbon Dioxide 37.0 H Anion Gap 3 L BUN 12 Creatinine 0.93 Estim Creat Clear Calc 37.24 Est GFR (MDRD) Af Amer 75 Est GFR (MDRD) Non-Af 62 BUN/Creatinine Ratio 12.9 Glucose 89 Calcium 8.3 L Troponin I High Sens 9 Radiography Chest X-Ray - ED: 1 View, Read by ED Physician, Heart, Lungs, Mediastinum, Bony Structures, No Acute Disease and Chronic Changes Diagnostic Testing: Radiology Impression Chest X-Ray 07/25/21 21:21 IMPRESSION: Hyperaeration. Basilar atelectasis. Electronically Signed: Isaac Almanza DO at 22:23 EDT Tel [phone], Service support , Portable chest x-ray shows no acute process. Chronic changes consistent with COPD. Rhythm Strip Rhythm Strip: Sinus Rhythm Rate: 69 Ectopy: None EKG Initial EKG: Attestation: I personally reviewed and interpreted this EKG as follows: Interpretation: Sinus Rhythm and No Acute Injury Pattern Comments: Normal sinus rhythm rate of 69 no acute signs of OR or ischemia. Discharge Plan Triage Chief Complaint: Shortness of Breath ED Provider: Tyler Owens Dx/Rx/DC Orders Clinical Impression: COPD with acute exacerbation, Acute dyspnea Instructions: ED COPD Flare Prescriptions: New prednisone 20 mg tablet 40 mg PO DAILY 7 Days Qty: 14 RF: 0 No Action gabapentin [Neurontin] 300 MG capsule 600 mg PO QHS RF: 0 albuterol sulfate [Ventolin HFA] 108 HFA aerosol inhaler 1 - 2 puff inhalation Q4H PRN (Reason: Sob &/Or Wheezing) RF: 0 albuterol sulfate 2.5 MG/3 ML solution for nebulization 2.5 mg INHALATION Q2H PRN PRN (Reason: SOB &/OR WHEEZING) Qty: 1 RF: 0 Trelegy Ellipta 1 EACH blister with device 1 puff IH DAILY RF: 0 trazodone 50 MG tablet 50 mg PO QHS PRN PRN (Reason: Sleep) RF: 0 atorvastatin 20 MG tablet 20 mg PO QHS RF: 0 carvedilol 3.125 MG tablet 3.125 mg PO BID RF: 0 aspirin 81 MG tablet,chewable 81 mg PO DAILY RF: 0 Mucinex 1,200 MG tablet 1,200 mg PO BID PRN (Reason: Congestion) RF: 0 lisinopril 2.5 MG tablet 2.5 mg PO DAILY RF: 0 pediatric multivitamin 1 EACH tablet,chewable 1 each PO DAILY RF: 0 cholecalciferol (vitamin D3) 2,000 UNIT capsule 2,000 unit PO DAILY RF: 0 furosemide 20 MG tablet 20 mg PO PRN PRN (Reason: LE swelling) Qty: 15 RF: 0 hydroxyzine HCl 25 mg tablet 25 mg PO QHS RF: 0 Ensure Enlive 120 ML liquid 120 ml PO 4X/DAY RF: 0 Primary Care Provider: Matt Peace Referrals: Matt Peace MD [Primary Care Provider] - 3-5 Days if not improving Activity Restrictions/Additional Instructions: Use your inhalers and nebulizer treatments at home as needed. Follow-up with your doctor to ensure you are improving. Return to the emergency department if you are feeling worse. When you get a chance to follow-up and get your Covid vaccination. Daily prednisone for the next 7 days. Disposition Disposition: Home, Self Care
[2021-07-25 22:41] LABS: Absolute Lymphocyte Count 1.05 X10^3/uL (0.83-4.51); Absolute Neutrophil Count 4.3 X10^3/uL (2.0-7.7); Basophil# 0.05 X10^3/uL; Basophil% 0.7 % (0-1); Eosinophils% 17.7 % (0-5); Hematocrit 30.6 % (37-47); Hemoglobin 9.6 g/dL (12.0-15.0); Lymphocyte # 1.05 X10^3/ul (0.83-4.51); Lymphocyte % 14.3 % (19-41); Mean Corp Hgb Conc 31.4 g/dL (32-36); Mean Corpuscular Hgb 30.3 pg (27.0-32.0); Mean Corpuscular Volume 96.5 fL (81-99); Mean Platelet Vol. 9.7 fl (6.2-12.0); Monocyte# 0.65 X10^3/uL; Monocyte% 8.9 % (0-10); NRBC Flagged by Analyzer 0 % (0-5); Neutrophil # 4.27 X10^3/uL (2.7-7.7); Neutrophil % 58.1 % (47-70); Platelet Count 239 K/mm3 (150-450); RBC Distribution Width CV 12.2 % (11.6-14.6); RBC Distribution Width SD 43.8 fl (35.1-43.9); Red Blood Count 3.17 M/mm3 (4.2-5.4); White Blood Count 7.3 K/mm3 (4.4-11.0)
[2021-07-25 23:05] LABS: Anion Gap 3 (5-15); BUN 12 mg/dL (7-18); BUN/Creat Ratio 12.9 RATIO (10-20); Calcium,Total 8.3 mg/dL (8.5-10.1); Chloride 92 mmol/L (98-107); Creatinine, Serum 0.93 mg/dL (0.55-1.02); EST Glomerular Filtration Rate 62 mL/min (>60); Est Glom Filt Rate - Afr Amer 75 mL/min (>60); Estimated Creatinine Clearance 37.24 ml/min; Glucose 89 mg/dL (74-106); Potassium 3.8 mmol/L (3.5-5.1); Sodium Level 132 mmol/L (136-145)
[2021-07-25] MEDS: Ipratropium/Albuterol Sulfate 3 ML AMPUL.NEB INHALATION (23:11)
[2021-07-25] MEDS: Albuterol 2.5 MG/3 ML VIAL.NEB. INHALATION (23:11)
[2021-07-25 23:13] LABS: Troponin-I HS 9 pg/mL (3.0-54.0)
[2021-07-25 23:22] VITALS: PULSE 66; RESP 27
[2021-07-25 23:49] VITALS: BP 132/74; PULSE 78; RESP 17; RESP 22; TEMP 36.9; O2SAT 97
[2021-07-25] MEDS: predniSONE 20 MG Tablet 60 MG PO (23:51)
== END 2021-07-25 23:52 | disposition home or self-care (01) ==
PROVIDERS: Emergency Provider Emergency Medicine; PCP Family Medicine
DX: J44.1 Chronic obstructive pulmonary disease with (acute) exacerbation (principal); I10 Essential (primary) hypertension; E78.5 Hyperlipidemia, unspecified; Z99.81 Dependence on supplemental oxygen; Z79.51 Long term (current) use of inhaled steroids; Z79.899 Other long term (current) drug therapy; Z87.891 Personal history of nicotine dependence
CPT/HCPCS: 36415; 71045; 80048; 84484; 85025; 87426; 93005; 94640; 99281; 99283

== ENCOUNTER 2021-08-19 15:04 | Emergency (ER) | payer MEDICARE, OTHER, SELFPAY ==
[2021-08-19 15:05] VITALS: BP 134/61; PULSE 70; RESP 28; TEMP 36.7; O2SAT 98; BMI 14.3
--- NOTE | 2021-08-19 15:16 | RAD_ITS ---
STUDY: X-RAY CHEST REASON FOR EXAM: Female, 76 years old. cough TECHNIQUE: Single AP portable view of the chest. COMPARISON: 07/25/2021. FINDINGS: No pleural effusion. The lungs are hyperexpanded consistent with COPD. No vascular congestion or acute pulmonary inflammatory change. Normal size heart. Normal mediastinum and marco antonio. Normal visualized pulmonary arteries. Atherosclerotic calcification of the aortic arch. Normal visualized thoracic spine. Normal visualized ribs, clavicles, and shoulders. There is no demonstrated abnormality of the visualized soft tissue structures of the upper abdomen. RAD/Chest 1 View (Portable) IMPRESSION: 1. No acute findings. 2. COPD. Electronically Signed: Adriana Fagan MD at 17:01 EDT Tel , Service support ,
--- NOTE | 2021-08-19 15:16 | EKG12_ITS ---
Test Reason : SOB Blood Pressure : / mmHG Vent. Rate : 060 BPM Atrial Rate : 060 BPM P-R Int : 100 ms QRS Dur : 086 ms QT Int : 414 ms P-R-T Axes : 081 059 082 degrees QTc Int : 414 ms Sinus rhythm with short AL ST & T wave abnormality Abnormal ECG Confirmed by CHIKA CEJA, YOLY ([id number]), senior technical editor CATHERINE CARBAJAL ([id number]) on 08/23/2021 10:41:21 AM Referred By: RAMSES Confirmed By:YOLY FARR MD
--- NOTE | 2021-08-19 15:17 | ED.VIS.DYS ---
HPI History of Present Illness Chief Complaint: Shortness of Breath Informant: patient and family Narrative Narrative: History of COPD on chronic 4.5 L of oxygen presents by EMS with son increasing dyspnea productive cough for 2 days. No fevers. No chest pains. Wheezing at home. Has nebulizer and trilogy. Last use prior to arrival. Transfer relief. Her last flare month ago seen in the ED was able to go home. No history of diabetes. No Covid vaccinations. States with sick therefore unable to get this. Denies headache fevers loss of taste or smell. No vomiting or diarrhea. 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 Had appointment PCP today at 3:00 however due to symptoms came here. Prior similar symptoms: Yes PFSH PFS Medical History JIM (acute kidney injury) Cardiac dysrhythmia COPD (chronic obstructive pulmonary disease) COPD (chronic obstructive pulmonary disease) COPD with acute exacerbation Elevated troponin Essential (primary) hypertension GI bleed Guaiac positive stools HLD (hyperlipidemia) Hyponatremia Infestation by cimex lectularius Neurogenic bladder Neurogenic bowel Nonobstructive atherosclerosis of coronary artery (Unknown) NSTEMI (non-ST elevated myocardial infarction) (01/14/21) Protein calorie malnutrition Home Medications albuterol sulfate [Ventolin HFA] 1 - 2 puff INHALATION Q4H PRN 11/26/17 [History Last Taken 02/14/21] gabapentin [Neurontin] 600 mg PO QHS 11/26/17 [History Last Taken 02/13/21] albuterol sulfate 2.5 mg INHALATION Q2H PRN PRN #1 box 11/28/17 [Rx Last Taken 02/14/21] Trelegy Ellipta 1 puff IH DAILY 10/16/18 [History Last Taken 02/14/21] trazodone 50 mg PO QHS PRN PRN 10/30/19 [History Last Taken 02/13/21] atorvastatin 20 mg PO QHS 06/27/20 [History Last Taken 02/13/21] carvedilol 3.125 mg PO BID 06/27/20 [History Last Taken 02/14/21] aspirin 81 mg PO DAILY 01/11/21 [History Last Taken 02/14/21] cholecalciferol (vitamin D3) 2,000 unit PO DAILY 02/14/21 [History Last Taken 02/14/21] guaifenesin [Mucinex] 1,200 mg PO BID PRN 02/14/21 [History Last Taken Unknown] lisinopril 2.5 mg PO DAILY 02/14/21 [History Last Taken 02/14/21] pediatric multivitamin 1 each PO DAILY 02/14/21 [History Last Taken 02/14/21] furosemide 20 mg PO PRN PRN #15 tab 02/15/21 [Rx Last Taken Unknown] hydroxyzine HCl 25 mg PO QHS 06/29/21 [History Last Taken Unknown] food supplemt, lactose-reduced [Ensure Enlive] 120 ml PO 4X/DAY 07/25/21 [History Last Taken Unknown] prednisone 40 mg PO DAILY 7 Days #14 tab 07/25/21 [Rx Last Taken Unknown] azithromycin 250 mg PO DAILY #4 tab 08/19/21 [Rx Last Taken Unknown] prednisone 60 mg PO DAILY #12 tab 08/19/21 [Rx Last Taken Unknown] Allergy/AdvReac Type Severity Reaction Status Date / Time Sulfa (Sulfonamide Allergy FACE GETS Verified 07/25/21 21:19 Antibiotics) RED AND ITCHY codeine AdvReac Nausea Verified 07/25/21 21:19 Family History Father Kidney disease Sister Breast cancer Sister Cancer lung Surgical History History of back surgery History of breast lump removal History of hysterectomy History of left heart catheterization (LHC) (01/17/21) Social History Smoking Status: Former smoker second hand exposure: No alcohol intake: never substance use type: does not use ROS ROS ED Constitutional Constitutional ED: Denies chills, fever(s) or sweats Eyes Eyes: Denies change in vision ENT ENT ED: Denies dysphagia or sore throat Cardiovascular Cardiovascular: Denies chest pain, leg edema, palpitations or racing heartbeat Respiratory/Chest Respiratory/Chest: Reports cough and dyspnea; Denies dyspnea on exertion Gastrointestinal Gastrointestinal: Denies abdominal pain, diarrhea, nausea or vomiting Genitourinary Genitourinary ED: Denies dysuria, hematuria or urinary frequency Musculoskeletal Musculoskeletal: Denies back pain, extremity pain or neck pain Integumentary Denies rash or wounds Neurologic Neurologic: Denies headache(s), paresthesias or weakness EXAM Physical Exam Const Vital Signs: 08/19/21 15:05 08/19/21 15:29 08/19/21 15:47 Temperature 98.0 F 98 F Temperature Source Oral Oral Pulse Rate 70 60 Respiratory Rate 28 H 18 Respiratory Effort Short of Breath Labored Accessory Muscle Use Retracting Respiratory Depth Shallow Respiratory Pattern Tachypnea Blood Pressure 134/61 H 134/61 H Blood Pressure Mean 85 85 Pulse Ox 98 97 Oxygen Delivery Method Nasal Cannula Nasal Cannula Nasal Cannula Oxygen Flow Rate (L/min) 4 3 4 08/19/21 17:11 08/19/21 17:30 Temperature 98 F Temperature Source Temporal Pulse Rate 58 L 58 L Respiratory Rate 21 H 21 H Respiratory Effort Respiratory Depth Respiratory Pattern Blood Pressure 139/57 H 139/57 H Blood Pressure Mean 84 Pulse Ox 98 98 Oxygen Delivery Method Nasal Cannula Oxygen Flow Rate (L/min) 4 Positive cachectic Constitutional Narrative: Currently 4 L of oxygen nasal cannula no respiratory distress. General Appearance ED: cachectic Nutritional Appearance: cachectic HEENT Reports moist mucous membranes normocephalic and atraumatic Eyes PERRL, EOMs intact bilaterally and conjunctivae normal General Eye ED: Yes normal appearance of both eyes Neck no lymphadenopathy and supple General: Negative for tenderness Chest Wall Chest: Negative for tenderness Resp normal air movement Resp Narrative: Mild expiratory wheeze left upper lobe, no accessory muscle use. Effort and Inspection: symmetric chest movement; Negative for respiratory distress Cardio regular rate, regular rhythm and no murmurs Peripheral Pulses: pulses 2+ throughout GI normal to inspection, nondistended, normoactive bowel sounds and non-tender Palpation: Negative for guarding or rebound tenderness present Back/Spine no CVA tenderness and no thoracic nor lumbar tenderness Extremity normal to inspection General Extremety ED: Negative for edema or tenderness General Extremity: Negative for edema Neuro oriented x3 and no sensory deficits noted Sensorium / Orientation: awake and alert Skin no rashes or lesions noted and no wounds MDM MDM MDM Narrative Medical decision making narrative: Patient stable on her 4 L of oxygen. No respiratory distress. Mild expiratory wheezing on exam. Order for aerosols however patient declined this per respiratory. Was given steroids, work-up negative. She remained stable on reevaluation states she was having improving symptoms. She states she will use her aerosols at home. With productive sputum and wheezing started on antibiotics for 5 days. Steroids for same. Time. She will follow-up with her doctors. Return precautions. All questions were answered. Lab Data Attestation: I reviewed the patient's lab results. Labs: Laboratory Results - last 24 hr 08/19/21 08/19/21 15:40 15:40 WBC 6.5 RBC 3.48 L Hgb 10.5 L Hct 34.6 L MCV 99.4 H MCH 30.2 MCHC 30.3 L RDW Std Deviation 45.9 H RDW Coeff of Ashu 12.7 Plt Count 215 MPV 9.9 Immature Gran % (Auto) 0.300 Neut % (Auto) 62.2 Lymph % (Auto) 13.2 L [place] % (Auto) 7.7 Eos % (Auto) 15.7 H Baso % (Auto) 0.9 Absolute Neuts (auto) 4.1 Absolute Lymphs (auto) 0.86 Nucleated RBC % 0 Sodium 135 L Potassium 3.9 Chloride 96 L Carbon Dioxide 36.0 H Anion Gap 3 L BUN 15 Creatinine 0.95 Estim Creat Clear Calc 31.66 Est GFR (MDRD) Af Amer 74 Est GFR (MDRD) Non-Af 61 BUN/Creatinine Ratio 15.8 Glucose 116 H Calcium 8.8 Radiography Chest X-Ray - ED: 1 View, Read by ED Physician and Read by Radiologist Diagnostic Testing: Clinical Impression(s) from Imaging Studies Chest X-Ray 08/19/21 15:16 IMPRESSION: 1. No acute findings. 2. COPD. Electronically Signed: Adriana Fagan MD at 17:01 EDT Tel , Service support , EKG Initial EKG: Attestation: I personally reviewed and interpreted this EKG as follows: Comments: Sinus rate of 60, no ST changes. Artifact V4 V5. Isolated T wave inversions in aVL. Similar findings from July 25, 2021. Nonspecific. Discharge Plan Triage Chief Complaint: Shortness of Breath ED Provider: Av Christopher Dx/Rx/DC Orders Clinical Impression: COPD with acute exacerbation Instructions: ED COPD Flare Prescriptions: New azithromycin [azithromycin] 250 MG tablet 250 mg PO DAILY Qty: 4 RF: 0 prednisone 20 MG tablet 60 mg PO DAILY Qty: 12 RF: 0 No Action gabapentin [Neurontin] 300 MG capsule 600 mg PO QHS RF: 0 albuterol sulfate [Ventolin HFA] 108 HFA aerosol inhaler 1 - 2 puff inhalation Q4H PRN (Reason: Sob &/Or Wheezing) RF: 0 albuterol sulfate 2.5 MG/3 ML solution for nebulization 2.5 mg INHALATION Q2H PRN PRN (Reason: SOB &/OR WHEEZING) Qty: 1 RF: 0 Trelegy Ellipta 1 EACH blister with device 1 puff IH DAILY RF: 0 trazodone 50 MG tablet 50 mg PO QHS PRN PRN (Reason: Sleep) RF: 0 atorvastatin 20 MG tablet 20 mg PO QHS RF: 0 carvedilol 3.125 MG tablet 3.125 mg PO BID RF: 0 aspirin 81 MG tablet,chewable 81 mg PO DAILY RF: 0 Mucinex 1,200 MG tablet 1,200 mg PO BID PRN (Reason: Congestion) RF: 0 lisinopril 2.5 MG tablet 2.5 mg PO DAILY RF: 0 pediatric multivitamin 1 EACH tablet,chewable 1 each PO DAILY RF: 0 cholecalciferol (vitamin D3) 2,000 UNIT capsule 2,000 unit PO DAILY RF: 0 furosemide 20 MG tablet 20 mg PO PRN PRN (Reason: LE swelling) Qty: 15 RF: 0 hydroxyzine HCl 25 mg tablet 25 mg PO QHS RF: 0 Ensure Enlive 120 ML liquid 120 ml PO 4X/DAY RF: 0 prednisone 20 mg tablet 40 mg PO DAILY 7 Days Qty: 14 RF: 0 Primary Care Provider: Matt Peace Referrals: Matt Peace MD [Primary Care Provider] - 3-5 Days Disposition Disposition: Home, Self Care Discharge Date/Time: 08/19/21 17:41
[2021-08-19 15:29] VITALS: O2SAT 100
[2021-08-19] MEDS: MethylPREDNISolone 125 MG/2 ML Vial IV (15:39)
[2021-08-19 15:47] VITALS: BP 134/61; PULSE 60; RESP 18; TEMP 36.6; O2SAT 97
[2021-08-19 15:47] LABS: Absolute Lymphocyte Count 0.86 X10^3/uL (0.83-4.51); Absolute Neutrophil Count 4.1 X10^3/uL (2.0-7.7); Basophil# 0.06 X10^3/uL; Basophil% 0.9 % (0-1); Eosinophil# 1.02 X10^3/uL; Eosinophils% 15.7 % (0-5); Hematocrit 34.6 % (37-47); Hemoglobin 10.5 g/dL (12.0-15.0); Lymphocyte # 0.86 X10^3/ul (0.83-4.51); Lymphocyte % 13.2 % (19-41); Mean Corp Hgb Conc 30.3 g/dL (32-36); Mean Corpuscular Hgb 30.2 pg (27.0-32.0); Mean Corpuscular Volume 99.4 fL (81-99); Mean Platelet Vol. 9.9 fl (6.2-12.0); Monocyte% 7.7 % (0-10); NRBC Flagged by Analyzer 0 % (0-5); Neutrophil # 4.05 X10^3/uL (2.7-7.7); Neutrophil % 62.2 % (47-70); Platelet Count 215 K/mm3 (150-450); RBC Distribution Width CV 12.7 % (11.6-14.6); RBC Distribution Width SD 45.9 fl (35.1-43.9); Red Blood Count 3.48 M/mm3 (4.2-5.4); White Blood Count 6.5 K/mm3 (4.4-11.0)
[2021-08-19 16:00] LABS: Anion Gap 3 (5-15); BUN 15 mg/dL (7-18); BUN/Creat Ratio 15.8 RATIO (10-20); Calcium,Total 8.8 mg/dL (8.5-10.1); Chloride 96 mmol/L (98-107); Creatinine, Serum 0.95 mg/dL (0.55-1.02); EST Glomerular Filtration Rate 61 mL/min (>60); Est Glom Filt Rate - Afr Amer 74 mL/min (>60); Estimated Creatinine Clearance 31.66 ml/min; Glucose 116 mg/dL (74-106); Potassium 3.9 mmol/L (3.5-5.1); Sodium Level 135 mmol/L (136-145)
[2021-08-19 17:11] VITALS: BP 139/57; PULSE 58; RESP 21; TEMP 36.6; O2SAT 98
[2021-08-19 17:30] VITALS: BP 139/57; PULSE 58; RESP 21; O2SAT 98
[2021-08-19] MEDS: Azithromycin 250 MG Tablet 500 MG PO (17:36)
== END 2021-08-19 17:41 | disposition home or self-care (01) ==
PROVIDERS: Emergency Provider Emergency Medicine; PCP Family Medicine
DX: J44.1 Chronic obstructive pulmonary disease with (acute) exacerbation (principal); Z99.81 Dependence on supplemental oxygen; Z79.51 Long term (current) use of inhaled steroids; Z79.899 Other long term (current) drug therapy; Z87.891 Personal history of nicotine dependence
CPT/HCPCS: 71045; 80048; 85025; 87426; 93005; 96374; 99285; A4216

== ENCOUNTER 2021-09-13 19:24 | Inpatient (IN) | payer MEDICARE, OTHER, SELFPAY ==
[2021-09-13] VITALS (8 sets, daily range): BP systolic 134–173; BP diastolic 56–71; PULSE 72–80; RESP 20–28; TEMP 36.7–37.4; O2SAT 91–100; BMI 17.1; BMI 14.0
--- NOTE | 2021-09-13 20:08 | EKG12_ITS ---
Test Reason : SOB Blood Pressure : / mmHG Vent. Rate : 078 BPM Atrial Rate : 078 BPM P-R Int : 122 ms QRS Dur : 074 ms QT Int : 376 ms P-R-T Axes : 082 066 077 degrees QTc Int : 428 ms Sinus rhythm with premature atrial complexes Abnormal ECG Confirmed by DECLAN CEJA, GERBER ([id number]), editor trade journal CATHERINE CARBAJAL ([id number]) on 09/14/2021 1:17:44 PM Referred By: LENNOX Confirmed By:GERBER MANRIQUEZ MD
--- NOTE | 2021-09-13 20:08 | RAD_ITS ---
STUDY: X-RAY CHEST REASON FOR EXAM: Female, 76 years old. CHEST PAIN cough TECHNIQUE: XR Chest 1 View COMPARISON: 08.19.21 FINDINGS: There is no demonstrated pleural abnormality. The lung farooq are hyperexpanded. Cervical spine fusion hardware noted. Normal size heart. Normal mediastinum and marco antonio. Normal visualized pulmonary arteries. There is atherosclerotic calcification of the aortic arch with tortuosity. There are diffuse degenerative changes of the visualized thoracic spine. There is degenerative osteoarthritis of the bilateral shoulders. There is no demonstrated abnormality of the visualized soft tissue structures of the upper abdomen. RAD/Chest 1 View (Portable) IMPRESSION: There are no acute findings. Electronically Signed: Cuauhtemoc Garcia MD at 20:36 EST , Service support ,
[2021-09-13 20:22] LABS: Absolute Lymphocyte Count 1.04 X10^3/uL (0.83-4.51); Basophil# 0.06 X10^3/uL; Basophil% 0.8 % (0-1); Eosinophil# 1.28 X10^3/uL; Eosinophils% 16.1 % (0-5); Hematocrit 34.7 % (37-47); Hemoglobin 10.7 g/dL (12.0-15.0); Lymphocyte # 1.04 X10^3/ul (0.83-4.51); Lymphocyte % 13.1 % (19-41); Mean Corp Hgb Conc 30.8 g/dL (32-36); Mean Corpuscular Hgb 30.3 pg (27.0-32.0); Mean Corpuscular Volume 98.3 fL (81-99); Mean Platelet Vol. 10.1 fl (6.2-12.0); Monocyte# 0.54 X10^3/uL; Monocyte% 6.8 % (0-10); NRBC Flagged by Analyzer 0 % (0-5); Neutrophil # 4.99 X10^3/uL (2.7-7.7); Neutrophil % 62.9 % (47-70); Platelet Count 289 K/mm3 (150-450); RBC Distribution Width CV 12.5 % (11.6-14.6); RBC Distribution Width SD 45.2 fl (35.1-43.9); Red Blood Count 3.53 M/mm3 (4.2-5.4); White Blood Count 7.9 K/mm3 (4.4-11.0)
[2021-09-13 20:41] LABS: AST(SGOT) 17 U/L (15-37); Alanine Aminotransfer ALT/SGPT 9 U/L (13-56); Albumin, Serum 3.3 g/dL (3.2-5.0); Alkaline Phosphatase 151 U/L (45-117); Anion Gap 4 (5-15); BUN 12 mg/dL (7-18); BUN/Creat Ratio 14.3 RATIO (10-20); Calcium,Total 8.7 mg/dL (8.5-10.1); Chloride 92 mmol/L (98-107); Creatinine, Serum 0.84 mg/dL (0.55-1.02); EST Glomerular Filtration Rate 70 mL/min (>60); Est Glom Filt Rate - Afr Amer 85 mL/min (>60); Estimated Creatinine Clearance 42.57 ml/min; Globulin 3.4 g/dL (2.2-4.2); Glucose 125 mg/dL (74-106); Potassium 4.4 mmol/L (3.5-5.1); Protein, Total 6.7 g/dL (6.4-8.2); Sodium Level 132 mmol/L (136-145); Troponin-I HS 9 pg/mL (3.0-54.0)
[2021-09-13] MEDS: Albuterol 2.5 MG/3 ML VIAL.NEB. INHALATION (20:45)
[2021-09-13] MEDS: Ipratropium/Albuterol Sulfate 3 ML AMPUL.NEB INHALATION (20:45)
[2021-09-13 21:21] LABS: Allen Test Negative; Base Excess 10 mmol/L (-2 to +2); Bicarbonate 35.7 mmol/L (22-26); Blood Gas Specimen Type ART; O2 Delivery Device Cannula; PO2 68 mmHG (75-100); SITE L Brach; SO2 92 % (95-99); Total Carbon Dioxide 38 mmol/L; pCO2 64.9 mmHg (35-45); pH 7.35 (7.35-7.45)
--- NOTE | 2021-09-13 21:36 | EDS_ITS ---
HPI History of Present Illness Chief Complaint: Shortness of Breath Informant: patient Onset/Context/Timing Onset: Weeks (1) Context: gradual Timing: Continuous Quality: Positive for Dyspnea on exertion and Wheezing Current Severity: Severe Maximum Severity: Severe Worsened by: Exertion and Coughing Relieved by: Rest Associated Symptoms cough, rhinorrhea and green sputum; Negative for ear pain, fever, sore throat, chills, clear sputum, white sputum or yellow sputum Chest Pain: Positive for Aching (With coughing) Narrative Narrative: Patient presents with shortness of breath that has been getting worse over the past week. Patient states it is gradually getting worse. Patient states she has been seen here 2 other times this week for similar complaints. Patient states she has a history of COPD. Patient states her breathing is worse with any exertion. Patient also states she feels like she is wheezing. Patient states she is coughing up some green sputum. Patient also admits to some rhinorrhea. Patient admits to some pain in her chest with coughing. Patient describes it as aching. [facility] Medical History JIM (acute kidney injury) Cardiac dysrhythmia COPD (chronic obstructive pulmonary disease) COPD (chronic obstructive pulmonary disease) COPD with acute exacerbation Elevated troponin Essential (primary) hypertension GI bleed Guaiac positive stools HLD (hyperlipidemia) Hyponatremia Infestation by cimex lectularius Neurogenic bladder Neurogenic bowel Nonobstructive atherosclerosis of coronary artery (Unknown) NSTEMI (non-ST elevated myocardial infarction) (01/14/21) Protein calorie malnutrition Home Medications albuterol sulfate [Ventolin HFA] 1 - 2 puff INHALATION Q4H PRN 11/26/17 [History Last Taken 02/14/21] gabapentin [Neurontin] 600 mg PO QHS 11/26/17 [History Last Taken 02/13/21] albuterol sulfate 2.5 mg INHALATION Q2H PRN PRN #1 box 11/28/17 [Rx Last Taken 02/14/21] Trelegy Ellipta 1 puff IH DAILY 10/16/18 [History Last Taken 02/14/21] trazodone 50 mg PO QHS PRN PRN 10/30/19 [History Last Taken 02/13/21] atorvastatin 20 mg PO QHS 08/30/20 [History Last Taken 02/13/21] carvedilol 3.125 mg PO BID 06/27/20 [History Last Taken 02/14/21] aspirin 81 mg PO DAILY 01/11/21 [History Last Taken 02/14/21] cholecalciferol (vitamin D3) 2,000 unit PO DAILY 02/14/21 [History Last Taken 02/14/21] guaifenesin [Mucinex] 1,200 mg PO BID PRN 02/14/21 [History Last Taken Unknown] lisinopril 2.5 mg PO DAILY 02/14/21 [History Last Taken 02/14/21] pediatric multivitamin 1 each PO DAILY 02/14/21 [History Last Taken 02/14/21] furosemide 20 mg PO PRN PRN #15 tab 02/15/21 [Rx Last Taken Unknown] hydroxyzine HCl 25 mg PO QHS 06/29/21 [History Last Taken Unknown] food supplemt, lactose-reduced [Ensure Enlive] 120 ml PO 4X/DAY 07/25/21 [History Last Taken Unknown] Allergy/AdvReac Type Severity Reaction Status Date / Time Sulfa (Sulfonamide Allergy FACE GETS Verified 09/13/21 19:28 Antibiotics) RED AND ITCHY codeine AdvReac Nausea Verified 09/13/21 19:28 Family History Father Kidney disease Sister Breast cancer Sister Cancer lung Surgical History History of back surgery History of breast lump removal History of hysterectomy History of left heart catheterization (LHC) (01/17/21) Social History (Updated 09/13/21 @ 22:[address] Tata Leavitt MD) household members: family Smoking Status: Current some day smoker tobacco type: cigarettes second hand exposure: No alcohol intake: never substance use type: does not use ROS ROS ED Constitutional Constitutional ED: Denies chills or fever(s) Eyes Eyes: Denies blurry vision or change in vision ENT ENT ED: Reports rhinorrhea; Denies sore throat Cardiovascular Cardiovascular: Reports chest pain; Denies palpitations Respiratory/Chest Respiratory/Chest: Reports cough and dyspnea Gastrointestinal Gastrointestinal: Denies nausea or vomiting Genitourinary Genitourinary ED: Denies dysuria or hematuria Musculoskeletal Musculoskeletal: Denies back pain or neck pain Integumentary Denies abscess or rash Neurologic Neurologic: Denies headache(s) or weakness Allergic/Immunologic Allergic/Immunologic ED: Denies mouth swelling or urticaria EXAM Physical Exam Const Vital Signs: 09/13/21 19:25 09/13/21 19:28 09/13/21 19:31 Temperature 99.3 F H 99.3 F H Temperature Source Temporal Temporal Pulse Rate 80 78 Respiratory Rate 26 H 22 H Respiratory Effort Short of Breath Respiratory Depth Respiratory Pattern Tachypnea Blood Pressure 173/71 H Blood Pressure Mean 105 Pulse Ox 95 96 Oxygen Delivery Method Nasal Cannula Nasal Cannula Nasal Cannula Oxygen Flow Rate (L/min) 4 4 4 09/13/21 20:08 09/13/21 20:47 09/13/21 20:55 Temperature Temperature Source Pulse Rate 75 74 Respiratory Rate 26 H 28 H Respiratory Effort Labored Pursed Lip Respiratory Depth Shallow Respiratory Pattern Tachypnea Blood Pressure Blood Pressure Mean Pulse Ox 91 Oxygen Delivery Method Nasal Cannula Nasal Cannula Oxygen Flow Rate (L/min) 4 4 09/13/21 21:26 09/13/21 21:28 09/13/21 21:46 Temperature 98.7 F 98.7 F 98.0 F Temperature Source Temporal Temporal Temporal Pulse Rate 76 76 72 Respiratory Rate 20 H 20 H 20 H Respiratory Effort Respiratory Depth Respiratory Pattern Blood Pressure 134/56 H 134/56 H 157/60 H Blood Pressure Mean 82 82 92 Pulse Ox 100 100 100 Oxygen Delivery Method Nasal Cannula Nasal Cannula Nasal Cannula Oxygen Flow Rate (L/min) 4 4 4 Positive well nourished and well developed General Appearance ED: well developed HEENT Reports moist mucous membranes Neck supple and no JVD Resp normal respiratory effort Auscultation: rhonchi throughout and wheezes throughout Cardio regular rate, regular rhythm and no murmurs GI normal to inspection, nondistended, normoactive bowel sounds, non-tender and non-distended Palpation: soft Extremity normal to inspection General Extremety ED: Negative for edema or tenderness General Extremity: Negative for edema Neuro oriented x3, CN's II-XII intact bilaterally and no sensory deficits noted Sensorium / Orientation: alert Motor Exam: strength 5/5 throughout Psych mental status grossly normal Skin no rashes or lesions noted MDM MDM MDM Narrative Medical decision making narrative: EKG was obtained. On my interpretation, it showed a normal sinus rhythm with a rate of 78 with occasional PVCs. MD interval, QRS interval, and QTc intervals were all normal. Rogers was normal. There are no acute ST or T wave changes. Portable 1 view chest x-ray was obtained. On my interpretation, lung farooq show chronic changes and hyperinflation. There is normal cardiac silhouette. Bony thorax is normal. There is no acute process noted. Radiologist also interpreted the x-ray and agrees. CBC shows a mild anemia with a hemoglobin of 10.7 hematocrit 34.7. Comprehensive metabolic profile showed a mild hyponatremia of 132 and a CO2 of 36. Initial high-sensitivity troponin was normal at 9. Case was discussed with the hospitalist. She will admit the patient to her service. Patient understood and was agreeable with the plan. All questions were answered. Lab Data Attestation: I reviewed the patient's lab results. Labs: Laboratory Results - last 24 hr 09/13/21 09/13/21 19:35 19:35 WBC 7.9 RBC 3.53 L Hgb 10.7 L Hct 34.7 L MCV 98.3 MCH 30.3 MCHC 30.8 L RDW Std Deviation 45.2 H RDW Coeff of Ashu 12.5 Plt Count 289 MPV 10.1 Immature Gran % (Auto) 0.300 Neut % (Auto) 62.9 Lymph % (Auto) 13.1 L Tucker % (Auto) 6.8 Eos % (Auto) 16.1 H Baso % (Auto) 0.8 Absolute Neuts (auto) 5.0 Absolute Lymphs (auto) 1.04 Nucleated RBC % 0 Sodium 132 L Potassium 4.4 Chloride 92 L Carbon Dioxide 36.0 H Anion Gap 4 L BUN 12 Creatinine 0.84 Estim Creat Clear Calc 42.57 Est GFR (MDRD) Af Amer 85 Est GFR (MDRD) Non-Af 70 BUN/Creatinine Ratio 14.3 Glucose 125 H Calcium 8.7 Total Bilirubin 0.30 AST 17 ALT 9 L Alkaline Phosphatase 151 H Troponin I High Sens 9 Total Protein 6.7 Albumin 3.3 Globulin 3.4 Albumin/Globulin Ratio 1.0 ABG Data ABG results: ABG 09/13/21 21:12 Specimen Type ART Sample Site L Brach pH 7.35 Bicarbonate Actual 35.7 H Total CO2 38 Base Excess 10 H O2 Saturation 92 L ABG pCO2 64.9 H ABG pO2 68 L Eriberto Test Negative O2 Delivery Device Cannula Liter Flow 4.0 Radiography Chest X-Ray - ED: 1 View, Read by ED Physician, Read by Radiologist, No Acute Disease and Chronic Changes Diagnostic Testing: Clinical Impression(s) from Imaging Studies Chest X-Ray 09/13/21 20:08 IMPRESSION: There are no acute findings. Electronically Signed: Cuauhtemoc Garcia MD at 20:36 EST , Service support , EKG Initial EKG: Attestation: I personally reviewed and interpreted this EKG as follows: Interpretation: Sinus Rhythm (78 with occasional PVCs.) and No Acute Injury Pattern Prior EKG tracings: available for review Prior: Unchanged (08/19/2021) Treatment and Re-Evaluation Vital Sign Attestation:: Vital signs were reviewed prior to admission. They are stable. Discharge Plan Dx/Rx/DC Orders Clinical Impression: COPD with acute exacerbation Disposition Disposition: Acute Care Hospital [facility]
--- NOTE | 2021-09-13 21:39 | PCM.HP.STD ---
HPI - General General Date of Admission: 09/13/21 Date of Service: 09/13/21 Chief Complaint: Worsening dyspnea, increased secretions. HPI Narrative The patient is a 76 y/o F w/ PMHx: Nonobstructive CAD s/p NSTEMI, HTN, HLD, Hx GI bleed, Tobacco use, Chronic COPD with chronic hypoxic respiratory failure (4L NC rest most recently noted, uses 7L for activity), Severe protein calorie malnutrition, Chronic anemia/Fe deficiency anemia who presents to the [facility] ED on 09/13/21 with history of progressively worsening dyspnea, fatigue, wheezing with ongoing cough as well as productive green sputum and rhinorrhea actually seen 2 additional times over the last week including in the ED however she feels as though she is worsening prompting reevaluation. Patient does report pleuritic discomfort with coughing. Patient notes her shortness of breath does worsen with exertion as well as her wheezing. She denies any recent fevers or chills. Work-up in the ED included T 99.3, heart rate 80, BP 173/71, respiratory rate 26, 95% on 4 L nasal cannula, CBC with WC 7.9, hemoglobin 10.7, platelet 289 without marked shift, ABG with pH 7.35, bicarb 35.7, O2 saturation 92%, PCO2 64.9, PO2 68 on 4 L nasal cannula, CMP with sodium 132, chloride 92, carbon oxide 36, glucose 125, alk phos 151 otherwise not marked appearing hepatic profile, troponin high-sensitivity 9, chest x-ray with no acute cardiopulmonary findings, EKG with sinus rhythm with no acute evidence of ischemia with occasional PVC. In the ED patient ministered DuoNeb and albuterol therapies as well as Solu-Medrol. 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 Neurogenic bladder Neurogenic bowel Nonobstructive atherosclerosis of coronary artery (Unknown) NSTEMI (non-ST elevated myocardial infarction) (01/14/21) Protein calorie malnutrition Home Medications albuterol sulfate [Ventolin HFA] 1 - 2 puff INHALATION Q4H PRN 11/26/17 [History Last Taken 02/14/21] gabapentin [Neurontin] 600 mg PO QHS 11/26/17 [History Last Taken 02/13/21] albuterol sulfate 2.5 mg INHALATION Q2H PRN PRN #1 box 11/28/17 [Rx Last Taken 02/14/21] Trelegy Ellipta 1 puff IH DAILY 10/16/18 [History Last Taken 02/14/21] trazodone 50 mg PO QHS PRN PRN 10/30/19 [History Last Taken 02/13/21] atorvastatin 20 mg PO QHS 06/27/20 [History Last Taken 02/13/21] carvedilol 3.125 mg PO BID 06/27/20 [History Last Taken 02/14/21] aspirin 81 mg PO DAILY 01/11/21 [History Last Taken 02/14/21] cholecalciferol (vitamin D3) 2,000 unit PO DAILY 02/14/21 [History Last Taken 02/14/21] guaifenesin [Mucinex] 1,200 mg PO BID PRN 02/14/21 [History Last Taken Unknown] lisinopril 2.5 mg PO DAILY 02/14/21 [History Last Taken 02/14/21] pediatric multivitamin 1 each PO DAILY 02/14/21 [History Last Taken 02/14/21] furosemide 20 mg PO PRN PRN #15 tab 02/15/21 [Rx Last Taken Unknown] hydroxyzine HCl 25 mg PO QHS 06/29/21 [History Last Taken Unknown] food supplemt, lactose-reduced [Ensure Enlive] 120 ml PO 4X/DAY 07/25/21 [History Last Taken Unknown] Allergy/AdvReac Type Severity Reaction Status Date / Time Sulfa (Sulfonamide Allergy FACE GETS Verified 09/13/21 19:28 Antibiotics) RED AND ITCHY codeine AdvReac Nausea Verified 09/13/21 19:28 Family History Father Kidney disease Sister Breast cancer Sister Cancer lung Surgical History History of back surgery History of breast lump removal History of hysterectomy History of left heart catheterization (LHC) (01/17/21) Social History (Updated 09/13/21 @ 22:[address] Tata Leavitt MD) household members: family Smoking Status: Current some day smoker tobacco type: cigarettes second hand exposure: No alcohol intake: never substance use type: does not use ROS ROS Narrative Admission Review of Systems: CONSTITUTIONAL: No weight loss, fever, chills, + weakness or fatigue. HEENT: + Rhinorrhea, congestion. Eyes: No visual loss, blurred vision, double vision or yellow sclerae. Ears, Nose, Throat: No hearing loss, sneezing. SKIN: No rash or itching, lesions, wounds. CARDIOVASCULAR: + Pleuritic chest discomfort. No palpitations, edema, orthopnea, syncopal events. RESPIRATORY: + shortness of breath, cough with sputum, wheezing, No hemoptysis. GASTROINTESTINAL: No anorexia, nausea, vomiting or diarrhea, abdominal pain, melena, BRBPR. GENITOURINARY: No dysuria, frequency, urgency or retention. NEUROLOGICAL: No headache, dizziness, syncope, paralysis, ataxia, numbness or tingling in the extremities, focal weakness, change in bowel or bladder control, seizure. MUSCULOSKELETAL:+ muscle, back pain, joint pain or stiffness. HEMATOLOGIC: + anemia, bleeding or bruising. LYMPHATICS: No enlarged nodes. No history of splenectomy. PSYCHIATRIC: No history of depression or anxiety. ENDOCRINOLOGIC: No reports of sweating, cold or heat intolerance. No polyuria or polydipsia. ALLERGIES: No history of asthma, hives, eczema or rhinitis. Vital Signs Vital Signs Vital Signs: 09/13/21 19:25 09/13/21 19:28 09/13/21 19:31 Temperature 99.3 F H 99.3 F H Temperature Source Temporal Temporal Pulse Rate 80 78 Respiratory Rate 26 H 22 H Respiratory Effort Short of Breath Respiratory Depth Respiratory Pattern Tachypnea Blood Pressure 173/71 H Blood Pressure Mean 105 Pulse Ox 95 96 Oxygen Delivery Method Nasal Cannula Nasal Cannula Nasal Cannula Oxygen Flow Rate (L/min) 4 4 4 09/13/21 20:08 09/13/21 20:47 09/13/21 20:55 Temperature Temperature Source Pulse Rate 75 74 Respiratory Rate 26 H 28 H Respiratory Effort Labored Pursed Lip Respiratory Depth Shallow Respiratory Pattern Tachypnea Blood Pressure Blood Pressure Mean Pulse Ox Oxygen Delivery Method Nasal Cannula Nasal Cannula Oxygen Flow Rate (L/min) 4 4 09/13/21 21:26 09/13/21 21:28 Temperature 98.7 F 98.7 F Temperature Source Temporal Temporal Pulse Rate 76 76 Respiratory Rate 20 H 20 H Respiratory Effort Respiratory Depth Respiratory Pattern Blood Pressure 134/56 H 134/56 H Blood Pressure Mean 82 82 Pulse Ox 100 100 Oxygen Delivery Method Nasal Cannula Nasal Cannula Oxygen Flow Rate (L/min) 4 4 Weight Weight: 102 lb 11.767 oz Body Mass Index (BMI) 17.1 Physical Exam Narrative Physical Examination: General: awake, alert, oriented x 3 and cooperative, seated upright in the ED bed in no apparent distress, fatigued, mildly increased respiratory rate but no evidence of respiratory distress. Skin: normal color, normal turgor, no icterus, no cyanosis. HEENT: AT/NC, EOMI, PERRLA, mildly dry MM, no carotid bruits or JVD noted. Lungs: Diminished BS throughout, > bases, increased effort, mildly coarse bilaterally, end expiratory wheeze, mildly increased respiratory rate but no evidence of any distress. Heart: Regular rate and rhythm; no gallop, rub audible. Abdomen: soft, thin cachetic habitus, NTTP, ND, normal BS, no HSM. Extremities: no cyanosis or clubbing, bilateral lower extremity pedal to distal aguila mild edema, not as markedly pitting as her previous examination. Neurological: patient awake, alert, oriented as noted; cognitive function intact; pupils equally reactive to light and accomodation; cranial nerves II-XII grossly normal, moving all 4 extremities, no focal deficits, strength severely globally decreased secondary to chronic debility. Psychiatric: affect appears fatigued, no acute evidence of depressive or anxiety feelings. Results Lab / Micro Data Result Diagrams: 09/13/21 19:35 09/13/21 19:35 Labs: Laboratory Results - last 24 hr 09/13/21 19:35: WBC 7.9, RBC 3.53 L, Hgb 10.7 L, Hct 34.7 L, MCV 98.3, MCH 30.3, MCHC 30.8 L, RDW Std Deviation 45.2 H, RDW Coeff of Ashu 12.5, Plt Count 289, MPV 10.1, Immature Gran % (Auto) 0.300, Neut % (Auto) 62.9, Lymph % (Auto) 13.1 L, [place] % (Auto) 6.8, Eos % (Auto) 16.1 H, Baso % (Auto) 0.8, Absolute Neuts (auto) 5.0, Absolute Lymphs (auto) 1.04, Nucleated RBC % 0 09/13/21 19:35: Sodium 132 L, Potassium 4.4, Chloride 92 L, Carbon Dioxide 36.0 H, Anion Gap 4 L, BUN 12, Creatinine 0.84, Estim Creat Clear Calc 42.57, Est GFR (MDRD) Af Amer 85, Est GFR (MDRD) Non-Af 70, BUN/Creatinine Ratio 14.3, Glucose 125 H, Calcium 8.7, Total Bilirubin 0.30, AST 17, ALT 9 L, Alkaline Phosphatase 151 H, Troponin I High Sens 9, Total Protein 6.7, Albumin 3.3, Globulin 3.4, Albumin/Globulin Ratio 1.0 ABG Data ABG results: ABG 09/13/21 21:12 Specimen Type ART Sample Site L Brach pH 7.35 Bicarbonate Actual 35.7 H Total CO2 38 Base Excess 10 H O2 Saturation 92 L ABG pCO2 64.9 H ABG pO2 68 L Eriberto Test Negative O2 Delivery Device Cannula Liter Flow 4.0 Radiology Impression Chest X-Ray 09/13/21 20:08 IMPRESSION: There are no acute findings. Electronically Signed: Cuauhtemoc Garcia MD at 20:36 EST , Service support , Assessment & Plan Assessment/Plan (1) COPD with acute exacerbation: PLAN: The patient is a 76 y/o F w/ PMHx: Nonobstructive CAD s/p NSTEMI, HTN, HLD, Hx GI bleed, Tobacco use, Chronic COPD with chronic hypoxic respiratory failure (4L NC rest most recently noted, uses 7L for activity), Severe protein calorie malnutrition, Chronic anemia/Fe deficiency anemia who presents to the [facility] ED on 09/13/21 with history of progressively worsening dyspnea, fatigue, wheezing with ongoing cough as well as productive green sputum and rhinorrhea actually seen 2 additional times over the last week including in the ED however she feels as though she is worsening prompting reevaluation. 1. Acute on Chronic COPD exacerbation with Chronic Hypoxic Respiratory Failure: CXR w/ chronic changes. Will admit to medical surgical floor, maintain on oxygen with wean as tolerated to home oxygen supplementation, continue ATC duonebs, PRN albuterol, IV methylprednisolone with initial dose to be administered in the ED, HOB, IS parameters, given no marked WC elevation or left shift and afebrile we will hold on immediate antibiotic therapy administration although does note productive cough, will obtain procalcitonin as well as sputum cultures/viral panel and add antibiotic therapies if elevated or concerns for bacterial infection. 2. Non-obstructive CAD: Status post NSTEMI, nonobstructive disease on cardiac catheterization and 01/15/2021 echocardiogram with EF of 55 to 60% with mild RV dilation with grade 1 diastolic dysfunction, will continue patient aspirin, statin, Coreg, lisinopril regimen. 3. Hypertension: Continue home regimen including lisinopril, Coreg, Lasix with hold parameters as needed, PRN hydralazine. 4. Hyperlipidemia: Continue home statin regimen. 5. Chronic anemia/iron deficiency anemia: Admission hemoglobin 10.7, baseline most recently 10-11, stable, trend. 6. Severe protein calorie malnutrition: Evidenced by reduced BMI, muscle and fat loss, nutrition consulted for recommendations. 7. Tobacco Abuse: Encouraged cessation, inpatient consultation per RT, NR if desired. 8. History of GI bleed: We will maintain on PPI. 9. DVT prophylaxis: SCDs, cautiously Lovenox. 10. CODE status: Patient SAMSON is her son Wilfrid and living will is currently in place. Discussed CODE status at length including difference between FULL code, DNR-CCA and DNR-CC status. Following discussions about the differences in these status, requested continuation of full CODE STATUS including intubation understanding the risks of possible inability to be extubated given severity of underlying lung disease. Advanced Care Planning Face to Face Time: 16 minutes. Charges/Coding Visit Charges Inpatient E&M: 96130 Init Hosp L3 Procedures Hospitalists Procedures: 15246 Advncd Care Plan 30 Min
[2021-09-13] MEDS: MethylPREDNISolone 125 MG/2 ML Vial 60 MG IV (21:52)
[2021-09-13 22:16] LABS: Troponin-I HS 8 pg/mL (3.0-54.0)
[2021-09-13 22:24] LABS: Phosphorus 3.2 mg/dL (2.5-4.9)
[2021-09-13 23:25] LABS: Procalcitonin 0.04 ng/mL (0.00-0.09)
--- NOTE | 2021-09-13 23:49 | PCS.PANDOC ---
PANDEMIC DOCUMENTATION INITIATED: Date: 09/13/2021 Time: 3556
[2021-09-14] VITALS (9 sets, daily range): BP systolic 121–170; BP diastolic 60–71; PULSE 61–80; RESP 16–20; TEMP 36.7–37; O2SAT 96–995
[2021-09-14] MEDS: 0.9% Normal Saline 1,000 ML 100 ML IV (01:18)
[2021-09-14] MEDS: Atorvastatin Calcium 20 MG Tablet PO ×3 (01:20→21:21)
[2021-09-14] MEDS: Carvedilol 3.125 MG TABLET PO ×4 (01:20→21:20)
[2021-09-14] MEDS: Gabapentin 600 MG Tablet PO ×3 (01:21→21:21)
[2021-09-14] MEDS: Pantoprazole Sodium 20 MG Tablet PO ×4 (01:21→21:20)
[2021-09-14] MEDS: hydrOXYzine PAM 25 MG Capsule PO ×2 (01:23→21:20)
[2021-09-14] MEDS: 0.9% Saline Lock 10 ML Syringe IV ×2 (01:24→06:17)
[2021-09-14] MEDS: Ipratropium/Albuterol Sulfate 3 ML AMPUL.NEB INHALATION ×4 (07:11→19:11)
[2021-09-14 07:25] LABS: Absolute Lymphocyte Count 0.18 X10^3/uL (0.83-4.51); Absolute Neutrophil Count 2.1 X10^3/uL (2.0-7.7); Basophil# 0.01 X10^3/uL; Basophil% 0.4 % (0-1); Eosinophil# 0.01 X10^3/uL; Eosinophils% 0.4 % (0-5); Hematocrit 31.5 % (37-47); Hemoglobin 9.9 g/dL (12.0-15.0); Lymphocyte # 0.18 X10^3/ul (0.83-4.51); Lymphocyte % 7.7 % (19-41); Mean Corp Hgb Conc 31.4 g/dL (32-36); Mean Corpuscular Hgb 30.5 pg (27.0-32.0); Mean Corpuscular Volume 96.9 fL (81-99); Mean Platelet Vol. 10.1 fl (6.2-12.0); Monocyte# 0.03 X10^3/uL; Monocyte% 1.3 % (0-10); NRBC Flagged by Analyzer 0 % (0-5); Neutrophil # 2.11 X10^3/uL (2.7-7.7); Neutrophil % 89.8 % (47-70); POSITIVE DIFFERENTIAL YES; Platelet Count 252 K/mm3 (150-450); RBC Distribution Width CV 12.3 % (11.6-14.6); RBC Distribution Width SD 43.7 fl (35.1-43.9); Red Blood Count 3.25 M/mm3 (4.2-5.4); White Blood Count 2.4 K/mm3 (4.4-11.0)
[2021-09-14 07:51] LABS: ALB/GLOB Ratio 0.9 RATIO (0.9-2.4); AST(SGOT) 13 U/L (15-37); Alanine Aminotransfer ALT/SGPT 9 U/L (13-56); Albumin, Serum 2.8 g/dL (3.2-5.0); Alkaline Phosphatase 136 U/L (45-117); Anion Gap 2 (5-15); BUN 12 mg/dL (7-18); Calcium,Total 8.4 mg/dL (8.5-10.1); Chloride 93 mmol/L (98-107); Creatinine, Serum 0.75 mg/dL (0.55-1.02); EST Glomerular Filtration Rate 80 mL/min (>60); Est Glom Filt Rate - Afr Amer 97 mL/min (>60); Estimated Creatinine Clearance 30.69 ml/min; Globulin 3.2 g/dL (2.2-4.2); Glucose 140 mg/dL (74-106); Potassium 4.6 mmol/L (3.5-5.1); Sodium Level 132 mmol/L (136-145)
[2021-09-14 07:58] LABS: Differential Indicated SCAN CRITERIA MET
[2021-09-14 08:26] LABS: Differential Comment SCANNED
[2021-09-14] MEDS: Cholecalciferol (VIT D3) 25 MCG TABLET (1,000 UNITS) 50 MCG PO (08:42)
[2021-09-14] MEDS: Multivitamins,Ther W-Minerals Tablet 1 TABLET PO (08:42)
[2021-09-14] MEDS: Lisinopril 2.5 MG Tablet PO (08:42)
[2021-09-14] MEDS: Enoxaparin 30 MG/0.3 ML Syringe SC (08:42)
[2021-09-14] MEDS: Aspirin 81 MG TAB.CHEW PO (08:43)
--- NOTE | 2021-09-14 10:04 | PN.HOSP_ITS ---
Subjective Subjective Patient seen and examined. She was admitted with a complaint of worsening shortness of breath and increased secretions. She has been managed for acute COPD exacerbation. She feels much better today. Her shortness of breath is improved and she is off oxygen. She is still wheezing a bit. Review of systems otherwise negative. Objective Data Objective Data Vital Signs: Vital Signs Temp Pulse Resp BP Pulse Ox 98.3 F 61 18 137/69 H 96 09/14/21 08:36 09/14/21 08:36 09/14/21 08:36 09/14/21 08:36 09/14/21 08:36 Oxygen Flow Rate (L/min) 3 Oxygen Delivery Method Nasal Cannula Weight: 88 lb 2.958 oz Body Mass Index (BMI) 14.0 Intake & Output: Intake and Output for Last 24 Hours 09/12/21 09/13/21 09/14/21 23:59 23:59 23:59 Intake Total 600 / 600 Balance 600 / 600 Lab / Micro Data Result Diagrams: 09/14/21 06:30 09/14/21 06:30 Labs: Laboratory Results - last 24 hr 09/13/21 19:35: WBC 7.9, RBC 3.53 L, Hgb 10.7 L, Hct 34.7 L, MCV 98.3, MCH 30.3, MCHC 30.8 L, RDW Std Deviation 45.2 H, RDW Coeff of Ashu 12.5, Plt Count 289, MPV 10.1, Immature Gran % (Auto) 0.300, Neut % (Auto) 62.9, Lymph % (Auto) 13.1 L, [place] % (Auto) 6.8, Eos % (Auto) 16.1 H, Baso % (Auto) 0.8, Absolute Neuts (auto) 5.0, Absolute Lymphs (auto) 1.04, Nucleated RBC % 0 09/13/21 19:35: Sodium 132 L, Potassium 4.4, Chloride 92 L, Carbon Dioxide 36.0 H, Anion Gap 4 L, BUN 12, Creatinine 0.84, Estim Creat Clear Calc 42.57, Est GFR (MDRD) Af Amer 85, Est GFR (MDRD) Non-Af 70, BUN/Creatinine Ratio 14.3, Glucose 125 H, Calcium 8.7, Total Bilirubin 0.30, AST 17, ALT 9 L, Alkaline Phosphatase 151 H, Troponin I High Sens 9, Total Protein 6.7, Albumin 3.3, Globulin 3.4, Albumin/Globulin Ratio 1.0 09/13/21 21:50: Magnesium 2.0, Troponin I High Sens 8 09/13/21 21:50: Phosphorus 3.2 09/13/21 22:55: Procalcitonin 0.04 09/14/21 06:30: WBC 2.4 L, RBC 3.25 L, Hgb 9.9 L, Hct 31.5 L, MCV 96.9, MCH 30. 5, MCHC 31.4 L, RDW Std Deviation 43.7, RDW Coeff of Ashu 12.3, Plt Count 252, MPV 10.1, Immature Gran % (Auto) 0.400, Neut % (Auto) 89.8 H, Lymph % (Auto) 7.7 L, [place] % (Auto) 1.3, Eos % (Auto) 0.4, Baso % (Auto) 0.4, Absolute Neuts (auto) 2.1, Absolute Lymphs (auto) 0.18 L, Nucleated RBC % 0, Differential Comment SCANNED, Diff Path Review February foll 09/14/21 06:30: Sodium 132 L, Potassium 4.6, Chloride 93 L, Carbon Dioxide 37.0 H, Anion Gap 2 L, BUN 12, Creatinine 0.75, Estim Creat Clear Calc 30.69, Est GFR (MDRD) Af Amer 97, Est GFR (MDRD) Non-Af 80, BUN/Creatinine Ratio 16.0, Glucose 140 H, Calcium 8.4 L, Total Bilirubin 0.40, AST 13 L, ALT 9 L, Alkaline Phosphatase 136 H, Total Protein 6.0 L, Albumin 2.8 L, Globulin 3.2, Albumin/Globulin Ratio 0.9 Micro: Microbiology 09/13/21 22:45 Mucosa - Nose Respiratory Panel (PCR) - Final ABG Data ABG results: ABG 09/13/21 21:12 Specimen Type ART Sample Site L Brach pH 7.35 Bicarbonate Actual 35.7 H Total CO2 38 Base Excess 10 H O2 Saturation 92 L ABG pCO2 64.9 H ABG pO2 68 L Eriberto Test Negative O2 Delivery Device Cannula Liter Flow 4.0 Radiography Diagnostic Testing: Radiology Impression Chest X-Ray 09/13/21 20:08 IMPRESSION: There are no acute findings. Electronically Signed: Cuauhtemoc Garcia MD at 20:36 EST , Service support , Physical Exam Const alert, oriented x3 and no apparent distress Exam Limitations: no limitations HEENT moist oral mucous membranes and oropharynx normal Head and Scalp: normocephalic Eyes PERRL, EOMs intact bilaterally and conjunctivae normal Neck no lymphadenopathy Resp Resp Narrative: diminished breath sounds bibasally, mild wheezing. On room air. Cardio regular rate, regular rhythm, S1 normal heart sound, S2 normal heart sound and no murmurs GI normal to inspection, nondistended, normoactive bowel sounds, soft to palpation, non-tender and non-distended Extremity normal to inspection, full ROM and no clubbing, cyanosis or edema Peripheral Pulses: Yes pulses 2+ throughout Skin no rashes or lesions noted Neuro oriented x3, CN's II-XII intact bilaterally and moves all extremities Sensorium / Orientation: awake and alert Psych affect normal Assessment & Plan Assessment/Plan (1) COPD with acute exacerbation: PLAN: #Acute on chronic COPD exacerbation * Feels much better. Currently on room air. * On IV Solu-Medrol 40 mg every 8 * Breathing treatments of bronchodilators. * Give oxygen as needed and titrate to maintain saturation above 90%. * #CAD: S/p cardiac cath. Has known EF of 55 to 60%. On aspirin, statin, Coreg and lisinopril #Hypertension: On lisinopril and Coreg as well as Lasix #Hyperlipidemia: On statin #Severe protein calorie malnutrition: BMI is 14.7. Nutrition consulted. #Nicotine dependence: Counseled to quit. DVT prophylaxis: Lovenox Charges/Coding Visit Charges Inpatient E&M: 28782 Subs Hosp L2
--- NOTE | 2021-09-14 11:05 | CASEMGMT ---
RN CM Face to Face with patient for initial transition planning/care coordination assessment. RN CM introduced self and role at [facility]. Patient lying in bed, alert and oriented. Patient willing to participate in assessment and is able to answer all questions appropriately. Care providers, pharmacy, and demographics verified. Patient wishes to discharge home, denies need for home health at this time. Patient states she has no further needs or concerns at this time. CM to follow for discharge planning needs that may arise. PCP: Kobi Specialists: Charles oil pit attendant [facility]erred [facility] Prescription Benefit: yes Living Will/HPOA: yes, son Kavon Bhandari LNOK: sons Living Arrangements: Patient lives with son in a 2 story home. Patient states she is able to ambulate stairs and is independent at home. Transportation: son DME/HHC: Patient states she has a shower chair, rollator, grab bars, nebulizer, home oxygen through [employer] with portability at 4 lpm. Disposition Plan: patient to discharge home with family support and follow-up plans in place. Shira DELEON, RN, CM
[2021-09-14 14:18] LABS: Pathologist Review Reviewed
[2021-09-15] VITALS (10 sets, daily range): BP systolic 111–137; BP diastolic 75–98; PULSE 62–78; RESP 16–20; TEMP 36.4–36.8; O2SAT 94–99
[2021-09-15] MEDS: 0.9% Saline Lock 10 ML Syringe IV ×2 (05:42→21:53)
[2021-09-15] MEDS: Ipratropium/Albuterol Sulfate 3 ML AMPUL.NEB INHALATION ×4 (06:51→19:23)
[2021-09-15 07:41] LABS: Absolute Lymphocyte Count 0.37 X10^3/uL (0.83-4.51); Absolute Neutrophil Count 9.3 X10^3/uL (2.0-7.7); Basophil# 0.01 X10^3/uL; Basophil% 0.1 % (0-1); Hematocrit 27.8 % (37-47); Hemoglobin 8.8 g/dL (12.0-15.0); Lymphocyte # 0.37 X10^3/ul (0.83-4.51); Lymphocyte % 3.6 % (19-41); Mean Corp Hgb Conc 31.7 g/dL (32-36); Mean Corpuscular Hgb 30.1 pg (27.0-32.0); Mean Corpuscular Volume 95.2 fL (81-99); Mean Platelet Vol. 10.4 fl (6.2-12.0); Monocyte# 0.41 X10^3/uL; NRBC Flagged by Analyzer 0 % (0-5); Neutrophil % 91.8 % (47-70); POSITIVE DIFFERENTIAL YES; Platelet Count 266 K/mm3 (150-450); RBC Distribution Width CV 12.4 % (11.6-14.6); RBC Distribution Width SD 43.3 fl (35.1-43.9); Red Blood Count 2.92 M/mm3 (4.2-5.4); White Blood Count 10.1 K/mm3 (4.4-11.0)
[2021-09-15 07:42] LABS: Differential Indicated SCAN CRITERIA MET
[2021-09-15 08:18] LABS: Anion Gap 0 (5-15); BUN 17 mg/dL (7-18); BUN/Creat Ratio 24.7 RATIO (10-20); Calcium,Total 8.5 mg/dL (8.5-10.1); Chloride 95 mmol/L (98-107); Creatinine, Serum 0.69 mg/dL (0.55-1.02); EST Glomerular Filtration Rate 88 mL/min (>60); Est Glom Filt Rate - Afr Amer 107 mL/min (>60); Estimated Creatinine Clearance 29.85 ml/min; Glucose 120 mg/dL (74-106); Potassium 4.8 mmol/L (3.5-5.1); Sodium Level 132 mmol/L (136-145)
[2021-09-15] MEDS: Pantoprazole Sodium 20 MG Tablet PO (09:10)
[2021-09-15] MEDS: Aspirin 81 MG TAB.CHEW PO (09:10)
[2021-09-15] MEDS: Multivitamins,Ther W-Minerals Tablet 1 TABLET PO (09:10)
[2021-09-15] MEDS: Carvedilol 3.125 MG TABLET PO (09:10)
[2021-09-15] MEDS: Cholecalciferol (VIT D3) 25 MCG TABLET (1,000 UNITS) 50 MCG PO (09:10)
[2021-09-15] MEDS: Lisinopril 2.5 MG Tablet PO (09:10)
[2021-09-15] MEDS: Enoxaparin 30 MG/0.3 ML Syringe SC (09:10)
--- NOTE | 2021-09-15 17:06 | PN.HOSP_ITS ---
Subjective Subjective Patient seen and examined. She says she had a bad night because the room was very cold and she could not get the staff to increase the temperature in her room. She feels her breathing is the same. I was hoping to discharge patient home today but she subsequently says she did not feel comfortable going home. She has remained hemodynamically stable otherwise. She was on her baseline 4 L of oxygen at time I reviewed her. Objective Data Objective Data Vital Signs: Vital Signs Temp Pulse Resp BP Pulse Ox 97.6 F L 78 18 111/75 97 09/15/21 14:28 09/15/21 15:11 09/15/21 15:11 09/15/21 14:28 09/15/21 14:28 Oxygen Flow Rate (L/min) 4 Oxygen Delivery Method Nasal Cannula Weight: 85 lb 12.157 oz Body Mass Index (BMI) 14.0 Intake & Output: Intake and Output for Last 24 Hours 09/13/21 09/14/21 09/15/21 23:59 23:59 23:59 Intake Total 1600 / 1600 Balance 1600 / 1600 Medical Nutrition Assessment Dietitian: Malnutrition Criteria Met Start: 09/14/21 10:39 Freq: Status: Active Protocol: Document 09/14/21 10:39 AG (Rec: 09/14/21 10:39 AG Desktop) Nutrition Malnutrition Evidence of Malnutrition Exists Yes Malnutrition (severe): Chronic Evidenced By Suboptimal Energy Intake ( Severe),Weight Loss (Severe) Clinical Problem Chronic Disease or Condition Related Malnutrition Etiology severe, chronic malnutrition r /t inadequate energy intake w/ increased energy needs d/t COPD Signs/Symptoms as evidenced by unintentional wt loss of 11.6#/12% wt loss x 7 months; estimated PO intake meeting <75% of estimated nutritional needs; severe muscle wasting/fat loss evident upon physical exam in clavicles, acromion, orbital, temporal region; BMI 14.7 Status Active Problem Recommendation Dietitian Recommendations/Changes Continue regular diet; will add ensure or carnation instant breakfast w/meals. Will continue ensure enlive 120mL 4x/day w/ medpass. Will fortify foods when possible. Lab / Micro Data Result Diagrams: 09/15/21 06:40 09/15/21 06:40 Labs: Laboratory Results - last 24 hr 09/15/21 06:40: WBC 10.1, RBC 2.92 L, Hgb 8.8 L, Hct 27.8 L, MCV 95.2, MCH 30.1, MCHC 31.7 L, RDW Std Deviation 43.3, RDW Coeff of Ashu 12.4, Plt Count 266, MPV 10.4, Immature Gran % (Auto) 0.500, Neut % (Auto) 91.8 H, Lymph % (Auto) 3.6 L, [place] % (Auto) 4.0, Eos % (Auto) 0.0, Baso % (Auto) 0.1, Absolute Neuts (auto) 9.3 H, Absolute Lymphs (auto) 0.37 L, Nucleated RBC % 0, Differential Comment COMMENT 09/15/21 06:40: Sodium 132 L, Potassium 4.8, Chloride 95 L, Carbon Dioxide 37.0 H, Anion Gap 0 L, BUN 17, Creatinine 0.69, Estim Creat Clear Calc 29.85, Est GFR (MDRD) Af Amer 107, Est GFR (MDRD) Non-Af 88, BUN/Creatinine Ratio 24.7 H, Glucose 120 H, Calcium 8.5 Micro: Microbiology 09/13/21 22:45 Mucosa - Nose Respiratory Panel (PCR) - Final Physical Exam Const alert, oriented x3 and no apparent distress Exam Limitations: no limitations HEENT head/scalp atraumatic, moist oral mucous membranes and oropharynx normal Head and Scalp: normocephalic Eyes PERRL, EOMs intact bilaterally and conjunctivae normal Neck no lymphadenopathy Resp Resp Narrative: diminished breath sounds bibasally, mild wheezing. On 4L of oxygen by nasal canula Cardio regular rate, regular rhythm, S1 normal heart sound, S2 normal heart sound and no murmurs GI normal to inspection, nondistended, normoactive bowel sounds, soft to palpation, non-tender and non-distended Extremity normal to inspection, full ROM and no clubbing, cyanosis or edema Skin no rashes or lesions noted Neuro oriented x3, CN's II-XII intact bilaterally and moves all extremities Sensorium / Orientation: awake and alert Psych affect normal Assessment & Plan Assessment/Plan (1) COPD with acute exacerbation: PLAN: #Acute on chronic COPD exacerbation * back on her 4L of oxgen baseline * Patient says she does not feel well enough to go home today on her walking pulse ox, she did require up to 7 L of oxygen. * continue IV Solu-Medrol 40 mg every 8 * Breathing treatments of bronchodilators. * Give oxygen as needed and titrate to maintain saturation above 90%. * #Chronic respiratory failure: Patient on 4 L of oxygen at home. Management as above. #CAD: S/p cardiac cath. Has known EF of 55 to 60%. On aspirin, statin, Coreg and lisinopril #Hypertension: On lisinopril and Coreg as well as Lasix #Hyperlipidemia: On statin #Severe protein calorie malnutrition: * BMI is 14.7. * Nutrition on board. Recommends to continue regular diet and add Ensure or [place] Instant Breakfast with meals and to fortify foods when available * #Nicotine dependence: Counseled to quit. DVT prophylaxis: Lovenox Disposition: * patient was weak and required up to 7L of oxygen with ambulation today. * Will monitor overnight; for likely DC home tomorrow. Charges/Coding Visit Charges Inpatient E&M: 16880 Subs Hosp L2
[2021-09-15] MEDS: hydrOXYzine PAM 25 MG Capsule PO (21:21)
[2021-09-16] VITALS (11 sets, daily range): BP systolic 128–167; BP diastolic 67–81; PULSE 65–85; RESP 16–20; TEMP 36.5–36.7; O2SAT 94–99
[2021-09-16] MEDS: 0.9% Saline Lock 10 ML Syringe IV ×3 (05:14→21:31)
[2021-09-16] MEDS: Acetaminophen 325 MG Tablet 650 MG PO (05:18)
[2021-09-16 06:43] LABS: Absolute Lymphocyte Count 0.43 X10^3/uL (0.83-4.51); Absolute Neutrophil Count 9.5 X10^3/uL (2.0-7.7); Basophil# 0.01 X10^3/uL; Basophil% 0.1 % (0-1); Hematocrit 26.9 % (37-47); Hemoglobin 8.5 g/dL (12.0-15.0); Lymphocyte # 0.43 X10^3/ul (0.83-4.51); Lymphocyte % 4.1 % (19-41); Mean Corp Hgb Conc 31.6 g/dL (32-36); Mean Corpuscular Hgb 29.5 pg (27.0-32.0); Mean Corpuscular Volume 93.4 fL (81-99); Mean Platelet Vol. 10.4 fl (6.2-12.0); Monocyte% 3.8 % (0-10); NRBC Flagged by Analyzer 0 % (0-5); Neutrophil # 9.53 X10^3/uL (2.7-7.7); Neutrophil % 91.3 % (47-70); POSITIVE DIFFERENTIAL YES; Platelet Count 270 K/mm3 (150-450); RBC Distribution Width CV 12.7 % (11.6-14.6); RBC Distribution Width SD 43.8 fl (35.1-43.9); Red Blood Count 2.88 M/mm3 (4.2-5.4); White Blood Count 10.4 K/mm3 (4.4-11.0)
[2021-09-16 06:47] LABS: Differential Indicated SCAN CRITERIA MET
[2021-09-16 06:52] LABS: Anion Gap 5 (5-15); BUN 25 mg/dL (7-18); BUN/Creat Ratio 29.1 RATIO (10-20); Calcium,Total 8.5 mg/dL (8.5-10.1); Chloride 91 mmol/L (98-107); Creatinine, Serum 0.86 mg/dL (0.55-1.02); EST Glomerular Filtration Rate 69 mL/min (>60); Est Glom Filt Rate - Afr Amer 83 mL/min (>60); Estimated Creatinine Clearance 36.05 ml/min; Glucose 127 mg/dL (74-106); Potassium 4.3 mmol/L (3.5-5.1); Sodium Level 131 mmol/L (136-145)
[2021-09-16] MEDS: Ipratropium/Albuterol Sulfate 3 ML AMPUL.NEB INHALATION ×4 (07:13→19:22)
[2021-09-16 07:59] LABS: Ferritin 23 ng/mL (8-252); Iron 21 ug/dL (50-170); Iron Binding Capacity,Total 314 ug/dL (250-450); PERCENT IRON SATURATION 6.7 % (15.0-55.0)
[2021-09-16] MEDS: Aspirin 81 MG TAB.CHEW PO (08:40)
[2021-09-16] MEDS: Multivitamins,Ther W-Minerals Tablet 1 TABLET PO (08:40)
--- NOTE | 2021-09-16 10:08 | CASEMGMT ---
RN CM NOTE: Noted Palliative referral was made 12/2020. TC to Palliative at this time to inquire if pt is active w/them. Per Yuki, they spoke w/pt's son in February and he stated pt was doing fine and did not need their services. Yadi JOSPEHN RN CM
[2021-09-16] MEDS: Carvedilol 3.125 MG TABLET PO ×2 (10:43→21:31)
[2021-09-16] MEDS: Enoxaparin 40 MG/0.4 ML Syringe SC (10:43)
[2021-09-16] MEDS: Cholecalciferol (VIT D3) 25 MCG TABLET (1,000 UNITS) 50 MCG PO (10:44)
[2021-09-16] MEDS: Pantoprazole Sodium 20 MG Tablet PO ×2 (10:44→21:31)
[2021-09-16] MEDS: Lisinopril 2.5 MG Tablet PO (10:45)
--- NOTE | 2021-09-16 12:39 | CASEMGMT ---
Social Work SW spoke with physician who indicates pt may be appropriate for SNF placement. SW met with pt and introduced self and role of SW. SW broached topic of SNF placement. Pt is adamant that she does not want to go to a care home. Pt stating she is aware of her medical condition but would prefer to be home and not in a facility. Pt son moved in with pt and is able to assist with needs as they arise. SW inquired about home health care and she is agreeable to this. Referral made to [facility]. SUSANNA Wright
--- NOTE | 2021-09-16 12:56 | CASEMGMT ---
Addendum entered by Kameron Ghosh 09/16/21 16:26: 1450: TC to son, Kavon, per pt's request. He was made aware pt states is out of small portable O2 tank that she can carry and that this could be picked up @ [employer] today before, if able. Kavon states she is not out of the small tanks--that she has 4 of the small ones that haven't even been touched. He was also notified [facility] has been set up w/SOC on and Palliative referral was made. Addendum entered by Kameron Ghosh 09/16/21 14:06: TC from Dilcia @ [facility]. They are able to accept pt. SOC will be Thursday 09/20. Pt made aware. Addendum entered by Kameron Ghosh 09/16/21 13:15: TC to Palliative to notify them of referral and referral packet emailed to them. Original Note: BHUMI PEDRO NOTE: Elda HOWARD, notified RN WILLIS that pt is interested in HHC. RN CM to room to talk w/pt. Pt was provided with list of C providers including quality and resource use data and consistent with the patient's preferred geographic region, medical needs, and insurance network. The pt's preferred provider is [facility]. TC to Dilcia @ [facility] and referral made. Awaiting acceptance. Discussed CCN as an option to follow pt after HHC completed and also discussed Palliative Care w/pt and she is interested in both of these as well. Order placed for CCN. TC to Omar lomax: referral. Dr Uriarte notified pt is interested in Palliative care and order received. Pt states she has O2 @ home thru [employer], but the smaller portable tank is empty. She has other larger portable tanks but they are on wheels and would like refills on the smaller ones. TC to [facility] and spoke w/Courtney. She states they will be open today until 4 PM and if son is able, he could stop by to pick one up. CM to talk w/son when he comes in to see pt. Yadi DELEON RN, CM
--- NOTE | 2021-09-16 13:40 | HP.PCM.PAL_ITS ---
[facility] - General General Date of Admission: 09/13/21 Chief Complaint: Worsening dyspnea, increased secretions. HPI Narrative FLORY ALBERTO, is a 76 F who presented to [facility] 09/13/2021 with worsening dyspnea, fatigue, and cough with green sputum production. Patient had been seen 07/25 and 08/19 in the ED for shortness of breath and sent home with antibiotics and steroids Station, she was febrile and hypertensive. She was treated with bronchodilators and steroids, as well as antibiotics and admitted for further evaluation and management. CODE STATUS was discussed with the hospitalist and patient requested continuing with her full CODE STATUS. She does have significant chronic lung disease with COPD and chronic hypoxemic respiratory failure requiring oxygen supplementation continuously at home. She follows with [facility] pulmonary. BMI is 14.7 so sheet rock finisher was consulted for severe protein calorie malnutrition. She remains a current smoker. 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 Neurogenic bladder Neurogenic bowel Nonobstructive atherosclerosis of coronary artery (Unknown) NSTEMI (non-ST elevated myocardial infarction) (01/14/21) Osteoporosis Protein calorie malnutrition Home Medications albuterol sulfate [Ventolin HFA] 1 - 2 puff INHALATION Q4H PRN 11/26/17 [History Last Taken 02/14/21] gabapentin [Neurontin] 600 mg PO QHS 11/26/17 [History Last Taken 02/13/21] albuterol sulfate 2.5 mg INHALATION Q2H PRN PRN #1 box 11/28/17 [Rx Last Taken 02/14/21] Trelegy Ellipta 1 puff IH DAILY 10/16/18 [History Last Taken 02/14/21] trazodone 50 mg PO QHS PRN PRN 10/30/19 [History Last Taken 02/13/21] atorvastatin 20 mg PO QHS 06/27/20 [History Last Taken 02/13/21] carvedilol 3.125 mg PO BID 06/27/20 [History Last Taken 02/14/21] aspirin 81 mg PO DAILY 01/11/21 [History Last Taken 02/14/21] cholecalciferol (vitamin D3) 2,000 unit PO DAILY 02/14/21 [History Last Taken 02/14/21] guaifenesin [Mucinex] 1,200 mg PO BID PRN 02/14/21 [History Last Taken Unknown] lisinopril 2.5 mg PO DAILY 02/14/21 [History Last Taken 02/14/21] pediatric multivitamin 1 each PO DAILY 02/14/21 [History Last Taken 02/14/21] furosemide 20 mg PO PRN PRN #15 tab 02/15/21 [Rx Last Taken Unknown] hydroxyzine HCl 25 mg PO QHS 06/29/21 [History Last Taken Unknown] food supplemt, lactose-reduced [Ensure Enlive] 120 ml PO 4X/DAY 07/25/21 [History Last Taken Unknown] Allergy/AdvReac Type Severity Reaction Status Date / Time Sulfa (Sulfonamide Allergy FACE GETS Verified 09/13/21 19:28 Antibiotics) RED AND ITCHY codeine AdvReac Nausea Verified 09/13/21 19:28 Family History Father Kidney disease Sister Breast cancer Sister Cancer lung Surgical History History of back surgery History of breast lump removal History of hysterectomy History of left heart catheterization (LHC) (01/17/21) Social History (Updated 09/13/21 @ 22:[address] Tata Leavitt MD) household members: family Smoking Status: Current some day smoker tobacco type: cigarettes second hand exposure: No alcohol intake: never substance use type: does not use
--- NOTE | 2021-09-16 13:50 | NURSING ---
This nurse attempted to perform oxygen qualification but pt fingers cool and not registering an spo2 while walking and pt only can tolerate a few seconds of walking before she needs to sit down d/t SOB.
--- NOTE | 2021-09-16 13:54 | PCM.CONS.P ---
Assessment & Plan Assessment/Plan (1) Shortness of breath: (2) COPD with acute exacerbation: (3) Chronic respiratory failure with hypoxia: (4) NSTEMI (non-ST elevated myocardial infarction): (5) Tobacco abuse: PLAN: 76-year-old female with chronic hypoxemic respiratory failure and COPD, current smoker, seen today for palliative consultation for symptom management of shortness of breath. 1. Shortness of breath: Again, multifactorial. Baseline oxygen requirement of 4 L per nasal cannula, she has been weaned to that today. PT OT ordered. Anticipate discharge within the next day or 2. She is still a current smoker, counseling provided for smoking cessation. She would be a candidate for Roxanol therapy pending evaluation, this may help with her exertional dyspnea and anxiety related to that. She does not have apnea. Symptoms have been significant for quite some time. She has had multiple ER visits in the last 1-2 months. Goals of care would include improving symptoms, quality of life, and avoiding hospitalizations, if possible. 2. COPD exacerbation/chronic hypoxemic respiratory failure: Follows with [facility] pulmonary. Currently on baseline oxygen requirement of 4 L. No current antibiotics, is getting IV steroids. Likely will go home with prednisone. Duo nebs every 4 hours and PRN albuterol. 3. History of NSTEMI/tobacco abuse/hypertension/NM/HLD/bedbugs: Complicates overall care, management, recovery, and prognosis. Thank you for the opportunity to participate in this patient's care, please do not hesitate to contact [facility] with any further questions or concerns. Palliative direct line is [phone]. We will follow up after discharge and will discuss palliative services further at that time. Greater than 50% of F2F visit dedicated to education and counseling of palliative care services, medications, comorbid conditions and potential assistance with management, and plan of care moving forward. Start time: 1340 End time: 1433 HPI Consult Data Date of Consult: 09/16/21 HPI Narrative HPI Narrative: FLORY ALBERTO, is a 76 F who presented to [facility] 09/13/2021 with worsening dyspnea, fatigue, and cough with green sputum production. Patient had been seen 07/25 and 08/19 in the ED for shortness of breath and sent home with antibiotics and steroids Station, she was febrile and hypertensive. She was treated with bronchodilators and steroids, as well as antibiotics and admitted for further evaluation and management. Palliative seeing her today for consultation for symptom management of shortness of breath given her end-stage COPD. We were actually consulted on a previous admission, however patient was discharged prior to being seen. We did contact them as an outpatient, son declined services at that time. CODE STATUS was discussed with the hospitalist and patient requested continuing with her full CODE STATUS. She does have significant chronic lung disease with COPD and chronic hypoxemic respiratory failure requiring oxygen supplementation continuously at home. She follows with [facility] pulmonary. BMI is 14.7 so compressor mechanic was consulted for severe protein calorie malnutrition. She remains a current smoker. Patient lives with her son, Kavon Bhandari in a two-story home, she is able to ambulate stairs and is typically independent with ADLs. He takes her to her appointments and is her HC POA. DME in the home includes a shower chair, Rollator, grab bars, nebulizer, home oxygen through [employer] with portability at 4 L/min. She uses [facility] for pharmacy and follows with Dr. Soto for pulmonology at [facility]. Denies dizziness or syncope. No N/V/D. Bowels are moving okay. No urinary complaints. She does get short of breath with minimal exertion. Feeling better than she was when she arrived to the ED. Stating she wants to go home but they kept for another day. Reports she can perform most ADLs at home independently, other than when she has episodes of increased shortness of breath. Her son does help out quite a bit around the house. No chronic pain issues. Reports a poor appetite and eats very little when at home, she has lost about 30-35 pounds in the last 2 or 3 years. She only weighs around 85 pounds. Does not feel hungry most of the time and feels she expends too much energy/oxygen when she eats. 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 Neurogenic bladder Neurogenic bowel Nonobstructive atherosclerosis of coronary artery (Unknown) NSTEMI (non-ST elevated myocardial infarction) (01/14/21) Osteoporosis Protein calorie malnutrition Home Medications albuterol sulfate [Ventolin HFA] 1 - 2 puff INHALATION Q4H PRN 11/26/17 [History Last Taken 02/14/21] gabapentin [Neurontin] 600 mg PO QHS 11/26/17 [History Last Taken 02/13/21] albuterol sulfate 2.5 mg INHALATION Q2H PRN PRN #1 box 11/28/17 [Rx Last Taken 02/14/21] Trelegy Ellipta 1 puff IH DAILY 10/16/18 [History Last Taken 02/14/21] trazodone 50 mg PO QHS PRN PRN 10/30/19 [History Last Taken 02/13/21] atorvastatin 20 mg PO QHS 06/27/20 [History Last Taken 02/13/21] carvedilol 3.125 mg PO BID 06/27/20 [History Last Taken 02/14/21] aspirin 81 mg PO DAILY 01/11/21 [History Last Taken 02/14/21] cholecalciferol (vitamin D3) 2,000 unit PO DAILY 02/14/21 [History Last Taken 02/14/21] guaifenesin [Mucinex] 1,200 mg PO BID PRN 02/14/21 [History Last Taken Unknown] lisinopril 2.5 mg PO DAILY 02/14/21 [History Last Taken 02/14/21] pediatric multivitamin 1 each PO DAILY 02/14/21 [History Last Taken 02/14/21] furosemide 20 mg PO PRN PRN #15 tab 02/15/21 [Rx Last Taken Unknown] hydroxyzine HCl 25 mg PO QHS 06/29/21 [History Last Taken Unknown] food supplemt, lactose-reduced [Ensure Enlive] 120 ml PO 4X/DAY 07/25/21 [History Last Taken Unknown] Allergy/AdvReac Type Severity Reaction Status Date / Time Sulfa (Sulfonamide Allergy FACE GETS Verified 09/13/21 19:28 Antibiotics) RED AND ITCHY codeine AdvReac Nausea Verified 09/13/21 19:28 Family History Father Kidney disease Sister Breast cancer Sister Cancer lung Surgical History History of back surgery History of breast lump removal History of hysterectomy History of left heart catheterization (LHC) (01/17/21) Social History household members: family Smoking Status: Current some day smoker tobacco type: cigarettes second hand exposure: No alcohol intake: never substance use type: does not use ROS ROS Narrative Review of systems otherwise negative from a constitutional, HEENT, respiratory, cardiovascular, GI, genitourinary, musculoskeletal, skin, neurologic, psychiatric and hematologic system unless stated above. Physical Exam Const alert and oriented x3 General Appearance: cooperative and frail Nutritional Appearance: cachectic HEENT normocephalic and head/scalp atraumatic HEENT Narrative: sunken in claviclular area, cheeks Resp Resp Narrative: barrel chest. conversational dyspnea Effort and Inspection: symmetric chest movement, uses accessory muscles and prolonged expiratory phase Auscultation: rhonchi, wheezes and diminished lung sounds Cardio regular rate, regular rhythm, S1 normal heart sound, S2 normal heart sound, no murmurs, no rub and no gallops Cardio Narrative: occasional ectopy GI normal to inspection, nondistended, normoactive bowel sounds Extremity General Extremity: Negative for cyanosis or edema Skin no rashes or lesions noted Neuro moves all extremities and no focal motor deficits Psych mental status grossly normal Activity / Motor Behavior: appropriate eye contact Memory / Cognition: memory grossly intact
--- NOTE | 2021-09-16 15:13 | PN.HOSP_ITS ---
Subjective Subjective Patient seen and examined. She still did not feel she had improved much and did not feel she could go home. She lives with her son. Still admits to coughing and some wheezing. Review of systems otherwise negative. She was on her baseline 4 L of oxygen. She has otherwise remained hemodynamically stable. Objective Data Objective Data Vital Signs: Vital Signs Temp Pulse Resp BP Pulse Ox 98.1 F 81 16 167/70 H 94 09/16/21 08:16 09/16/21 11:11 09/16/21 11:11 09/16/21 08:16 09/16/21 08:16 Oxygen Flow Rate (L/min) 5 Oxygen Delivery Method Nasal Cannula Weight: 89 lb 1.068 oz Body Mass Index (BMI) 14.0 Intake & Output: Intake and Output for Last 24 Hours 09/14/21 09/15/21 09/16/21 23:59 23:59 23:59 Intake Total 1600 / 1600 240 / 480 530 / 530 Balance 1600 / 1600 240 / 480 530 / 530 Medical Nutrition Assessment Dietitian: Malnutrition Criteria Met Start: 09/14/21 10:39 Freq: Status: Active Protocol: Document 09/14/21 10:39 AG (Rec: 09/14/21 10:39 AG Desktop) Nutrition Malnutrition Evidence of Malnutrition Exists Yes Malnutrition (severe): Chronic Evidenced By Suboptimal Energy Intake ( Severe),Weight Loss (Severe) Clinical Problem Chronic Disease or Condition Related Malnutrition Etiology severe, chronic malnutrition r /t inadequate energy intake w/ increased energy needs d/t COPD Signs/Symptoms as evidenced by unintentional wt loss of 11.6#/12% wt loss x 7 months; estimated PO intake meeting <75% of estimated nutritional needs; severe muscle wasting/fat loss evident upon physical exam in clavicles, acromion, orbital, temporal region; BMI 14.7 Status Active Problem Recommendation Dietitian Recommendations/Changes Continue regular diet; will add ensure or carnation instant breakfast w/meals. Will continue ensure enlive 120mL 4x/day w/ medpass. Will fortify foods when possible. Lab / Micro Data Result Diagrams: 09/16/21 06:13 09/16/21 06:13 Labs: Laboratory Results - last 24 hr 09/16/21 06:13: WBC 10.4, RBC 2.88 L, Hgb 8.5 L, Hct 26.9 L, MCV 93.4, MCH 29.5, MCHC 31.6 L, RDW Std Deviation 43.8, RDW Coeff of Ashu 12.7, Plt Count 270, MPV 10.4, Immature Gran % (Auto) 0.700, Neut % (Auto) 91.3 H, Lymph % (Auto) 4.1 L, [place] % (Auto) 3.8, Eos % (Auto) 0.0, Baso % (Auto) 0.1, Absolute Neuts (auto) 9.5 H, Absolute Lymphs (auto) 0.43 L, Nucleated RBC % 0 09/16/21 06:13: Sodium 131 L, Potassium 4.3, Chloride 91 L, Carbon Dioxide 35.0 H, Anion Gap 5, BUN 25 H, Creatinine 0.86, Estim Creat Clear Calc 36.05, Est GFR (MDRD) Af Amer 83, Est GFR (MDRD) Non-Af 69, BUN/Creatinine Ratio 29.1 H, Glucose 127 H, Calcium 8.5 09/16/21 06:13: Iron 21 L, TIBC 314, Iron Saturation 6.7 L, Ferritin 23 Micro: Microbiology 09/13/21 22:45 Mucosa - Nose Respiratory Panel (PCR) - Final Physical Exam Const alert, oriented x3 and no apparent distress Exam Limitations: no limitations Nutritional Appearance: cachectic HEENT head/scalp atraumatic, moist oral mucous membranes and oropharynx normal Head and Scalp: normocephalic Eyes PERRL, EOMs intact bilaterally and conjunctivae normal Neck no lymphadenopathy Resp Resp Narrative: diminished breath sounds bibasally, mild wheezing. On 4L of oxygen by nasal canula Cardio regular rate, regular rhythm, S1 normal heart sound, S2 normal heart sound and no murmurs GI normal to inspection, nondistended, normoactive bowel sounds, soft to palpation, non-tender and non-distended Extremity normal to inspection, full ROM and no clubbing, cyanosis or edema Skin no rashes or lesions noted Neuro oriented x3, CN's II-XII intact bilaterally and moves all extremities Sensorium / Orientation: awake and alert Psych affect normal Assessment & Plan Assessment/Plan (1) COPD with acute exacerbation: PLAN: #Acute on chronic COPD exacerbation * on her 4L of oxgen baseline, but requires up to 7L of oxygen with mild exertion * Patient still says she does not feel well enough to go home today on her walking pulse ox, she did require up to 7 L of oxygen. * continue IV Solu-Medrol 40 mg every 8 * Breathing treatments of bronchodilators. * Give oxygen as needed and titrate to maintain saturation above 90%. * patient counseled that she was very debilitated from COPD and recommended palliative consult. Patient agreeable to palliative consult. * #Chronic respiratory failure: Patient on 4 L of oxygen at home. Management as above. #CAD: S/p cardiac cath. Has known EF of 55 to 60%. On aspirin, statin, Coreg and lisinopril #Hypertension: On lisinopril and Coreg as well as Lasix #Hyperlipidemia: On statin #Severe protein calorie malnutrition: * BMI is 14.7. * Nutrition on board. Recommends to continue regular diet and add Ensure or [place] Instant Breakfast with meals and to fortify foods when available * #Nicotine dependence: Counseled to quit. DVT prophylaxis: Lovenox Disposition: * Patient counseled about possible placement. PT OT on board. Charges/Coding Visit Charges Inpatient E&M: 91010 Subs Hosp L2
--- NOTE | 2021-09-16 16:38 | NURSING ---
pt 96% at rest on 5L O2. Ambulated patient to the bathroom on 5L and pt was 96%. While patient was performing self care in the bathroom, pt c/o shortness of breath and difficulty breathing, pts O2 saturation maintained on 5L. While ambulating back to bed, increased O2 to 7L. While back to bed pt tripoding trying to catch her breath on 7L. Pulse ox 96%. Left patient on 7L until pt gets comfortable.
[2021-09-16] MEDS: hydrOXYzine PAM 25 MG Capsule PO (21:31)
[2021-09-16] MEDS: Gabapentin 600 MG Tablet PO (21:31)
[2021-09-16] MEDS: Atorvastatin Calcium 20 MG Tablet PO (21:31)
[2021-09-17] VITALS (9 sets, daily range): BP systolic 129–144; BP diastolic 53–70; PULSE 58–87; RESP 18; TEMP 36.3–36.8; O2SAT 89–100
[2021-09-17] MEDS: 0.9% Saline Lock 10 ML Syringe IV (06:19)
[2021-09-17] MEDS: Ipratropium/Albuterol Sulfate 3 ML AMPUL.NEB INHALATION ×2 (07:11→11:14)
[2021-09-17 07:49] LABS: Absolute Lymphocyte Count 0.46 X10^3/uL (0.83-4.51); Absolute Neutrophil Count 5.7 X10^3/uL (2.0-7.7); Hematocrit 30.4 % (37-47); Hemoglobin 9.8 g/dL (12.0-15.0); Lymphocyte # 0.46 X10^3/ul (0.83-4.51); Mean Corp Hgb Conc 32.2 g/dL (32-36); Mean Corpuscular Hgb 30.1 pg (27.0-32.0); Mean Corpuscular Volume 93.3 fL (81-99); Mean Platelet Vol. 10.7 fl (6.2-12.0); Monocyte# 0.46 X10^3/uL; NRBC Flagged by Analyzer 0 % (0-5); Neutrophil # 5.65 X10^3/uL (2.7-7.7); Neutrophil % 85.8 % (47-70); POSITIVE DIFFERENTIAL YES; Platelet Count 313 K/mm3 (150-450); RBC Distribution Width CV 12.7 % (11.6-14.6); RBC Distribution Width SD 44.1 fl (35.1-43.9); Red Blood Count 3.26 M/mm3 (4.2-5.4); White Blood Count 6.6 K/mm3 (4.4-11.0)
[2021-09-17 07:52] LABS: Differential Indicated SCAN CRITERIA MET
[2021-09-17 08:04] LABS: Anion Gap 2 (5-15); BUN 22 mg/dL (7-18); BUN/Creat Ratio 29.3 RATIO (10-20); Calcium,Total 8.7 mg/dL (8.5-10.1); Chloride 93 mmol/L (98-107); Creatinine, Serum 0.75 mg/dL (0.55-1.02); EST Glomerular Filtration Rate 80 mL/min (>60); Est Glom Filt Rate - Afr Amer 97 mL/min (>60); Estimated Creatinine Clearance 31.15 ml/min; Glucose 88 mg/dL (74-106); Potassium 4.3 mmol/L (3.5-5.1); Sodium Level 132 mmol/L (136-145)
[2021-09-17] MEDS: Aspirin 81 MG TAB.CHEW PO (09:59)
[2021-09-17] MEDS: Multivitamins,Ther W-Minerals Tablet 1 TABLET PO (09:59)
[2021-09-17] MEDS: Pantoprazole Sodium 20 MG Tablet PO (10:00)
[2021-09-17] MEDS: Cholecalciferol (VIT D3) 25 MCG TABLET (1,000 UNITS) 50 MCG PO (10:00)
[2021-09-17] MEDS: Carvedilol 3.125 MG TABLET PO (10:00)
[2021-09-17] MEDS: Lisinopril 2.5 MG Tablet PO (10:00)
--- NOTE | 2021-09-17 10:22 | NURSING ---
Pt's son here at this time. Requesting to speak to Dr Uriarte as he was under the impression that the pt would be here over the weekend, not being discharged today. Cortext sent to Dr Uriarte to come speak with pt's son. Dr Uriarte called back and spoke w/pt's son. Plan is for pt to be discharged today with services set up for home as per RN CM.
--- NOTE | 2021-09-17 11:00 | DS.PCM_ITS ---
Providers Date of Admission: 09/13/21 Primary Care Physician: Dr. Matt Peace MD Reason For Visit: ACUTE COPD EXACERBATION Diagnosis Discharge Diagnosis (1) COPD with acute exacerbation: Status: Acute Code(s): J44.1 - Chronic obstructive pulmonary disease with (acute) exacerbation Medications at Discharge Home Medications albuterol sulfate [Ventolin HFA] 1 - 2 puff INHALATION Q4H PRN 11/26/17 gabapentin [Neurontin] 600 mg PO QHS 11/26/17 albuterol sulfate 2.5 mg INHALATION Q2H PRN PRN #1 box 11/28/17 Trelegy Ellipta 1 puff IH DAILY 10/16/18 trazodone 50 mg PO QHS PRN PRN 10/30/19 atorvastatin 20 mg PO QHS 06/27/20 carvedilol 3.125 mg PO BID 06/27/20 aspirin 81 mg PO DAILY 01/11/21 Mucinex 1,200 mg PO BID PRN 02/14/21 cholecalciferol (vitamin D3) 2,000 unit PO DAILY 02/14/21 lisinopril 2.5 mg PO DAILY 02/14/21 pediatric multivitamin 1 each PO DAILY 02/14/21 furosemide 20 mg PO PRN PRN #15 tab 02/15/21 hydroxyzine HCl 25 mg PO QHS 06/29/21 Ensure Enlive 120 ml PO 4X/DAY 07/25/21 prednisone 40 mg PO DAILY #10 tab 09/17/21 Hospital Course Operations None Procedures None Summary of Care Provided Minutes Spent on Discharge: 45 Hospital Course: Patient is a 76-year-old female with an extensive past medical history as outlined including chronic hypoxic respiratory failure due to severe COPD and severe protein calorie malnutrition who was admitted through the ED on 09/13/2021 with a complaint of progressively worsening shortness of breath and fatigue as well as wheezing and ongoing cough which was productive of greenish sputum. Patient had been seen at least 2 times over the last week in the ED for the same symptoms but she did not feel she was getting better so she came back to the ED. Chest x-ray showed no acute cardiopulmonary findings and EKG showed no acute ST changes. She was admitted and managed for acute on chronic COPD exacerbation. She was started on breathing treatments bronchodilators as well as IV Solu-Medrol. PT and OT were also consulted. Patient was noted to be very debilitated and her COPD was pretty much end-stage COPD. She said at home she just sat down and did not do anything at the slightest exertion made her short of breath and she had been requiring up to 7 L of oxygen at home. Her son pretty much to care for her activities of daily living at home. Patient was amenable to palliative care evaluation and plan was for her to follow-up with palliative care on outpatient basis. Patient shortness of breath gradually improved and she got back to her baseline. She was discharged home on 09/17/2021 on PO prednisone 40mg daily x 5 days and is to be followed up by palliative care on outpatient basis. 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 She is to use her baseline 4 L of oxygen as needed but was counseled to go up on the level as needed for shortness of breath. Patient seen and examined prior to discharge. She had no active complaints and felt much better. Review of symptoms otherwise negative. Labs and vitals reviewed. Her medication reviewed and reconciled. Physical Exam Const alert, oriented x3 and no apparent distress General Appearance: cooperative and comfortable Exam Limitations: no limitations Nutritional Appearance: cachectic HEENT normocephalic, head/scalp atraumatic, moist oral mucous membranes and oropharynx normal Eyes PERRL, EOMs intact bilaterally and conjunctivae normal Neck no lymphadenopathy Resp Resp Narrative: diminished breath sounds bibasally. On 4L of oxygen by nasal canula Cardio regular rate, regular rhythm, S1 normal heart sound, S2 normal heart sound and no murmurs GI normal to inspection, nondistended, normoactive bowel sounds, soft to palpation, non-tender and non-distended Extremity normal to inspection, full ROM and no clubbing, cyanosis or edema Skin no rashes or lesions noted Neuro oriented x3, CN's II-XII intact bilaterally and moves all extremities Sensorium / Orientation: awake and alert Psych affect normal Medical Records Data Medical Nutrition Assessment Dietitian: Malnutrition Criteria Met Start: 09/14/21 10:39 Freq: Status: Active Protocol: Document 09/14/21 10:39 AG (Rec: 09/14/21 10:39 AG Desktop) Nutrition Malnutrition Evidence of Malnutrition Exists Yes Malnutrition (severe): Chronic Evidenced By Suboptimal Energy Intake ( Severe),Weight Loss (Severe) Clinical Problem Chronic Disease or Condition Related Malnutrition Etiology severe, chronic malnutrition r /t inadequate energy intake w/ increased energy needs d/t COPD Signs/Symptoms as evidenced by unintentional wt loss of 11.6#/12% wt loss x 7 months; estimated PO intake meeting <75% of estimated nutritional needs; severe muscle wasting/fat loss evident upon physical exam in clavicles, acromion, orbital, temporal region; BMI 14.7 Status Active Problem Recommendation Dietitian Recommendations/Changes Continue regular diet; will add ensure or carnation instant breakfast w/meals. Will continue ensure enlive 120mL 4x/day w/ medpass. Will fortify foods when possible. Weight / BMI Weight Weight: 89 lb 8.123 oz Body Mass Index (BMI) 14.0 ABG / Lab / Microbiology Data Result Diagrams: 09/17/21 07:00 09/17/21 07:00 Laboratory: Laboratory Results - last 24 hr 09/17/21 07:00: WBC 6.6, RBC 3.26 L, Hgb 9.8 L, Hct 30.4 L, MCV 93.3, MCH 30.1, MCHC 32.2, RDW Std Deviation 44.1 H, RDW Coeff of Ashu 12.7, Plt Count 313, MPV 10.7, Immature Gran % (Auto) 0.200, Neut % (Auto) 85.8 H, Lymph % (Auto) 7.0 L, [place] % (Auto) 7.0, Eos % (Auto) 0.0, Baso % (Auto) 0.0, Absolute Neuts (auto) 5.7, Absolute Lymphs (auto) 0.46 L, Nucleated RBC % 0 09/17/21 07:00: Sodium 132 L, Potassium 4.3, Chloride 93 L, Carbon Dioxide 37.0 H, Anion Gap 2 L, BUN 22 H, Creatinine 0.75, Estim Creat Clear Calc 31.15, Est GFR (MDRD) Af Amer 97, Est GFR (MDRD) Non-Af 80, BUN/Creatinine Ratio 29.3 H, Glucose 88, Calcium 8.7 Microbiology: Microbiology 09/13/21 22:45 Mucosa - Nose Respiratory Panel (PCR) - Final D/C Instructions Discharge Diet: Low fat / Low cholesterol Discharge Activity: Return to Normal Activity Weight Bearing Status: Weight bearing as tolerated Call your doctor if you observe: Fever of 101 or Higher, Shortness of breath, Chest pain and Increased palpitations (irregular heartbeat) Meaningful Use Info Meaningful Use Diagnoses (Choose all that apply): None applicable Discharge Plan Admission Admit Date/Time: 09/13/21 21:47 Primary Reason for Your Visit: acute on chronic COPD exacerbation Attending Provider: Genny Uriarte Primary Care Provider: Matt Peace Instructions Patient Instructions: Discharge Instructions: COPD, COPD Meds Additional Instructions / Restrictions: use oxygen for shortness of breath as needed. Discharge Orders/Prescriptions Prescriptions: New prednisone 20 mg tablet 40 mg PO DAILY Qty: 10 RF: 0 Continued gabapentin [Neurontin] 300 MG capsule 600 mg PO QHS RF: 0 albuterol sulfate [Ventolin HFA] 108 HFA aerosol inhaler 1 - 2 puff inhalation Q4H PRN (Reason: Sob &/Or Wheezing) RF: 0 albuterol sulfate 2.5 MG/3 ML solution for nebulization 2.5 mg INHALATION Q2H PRN PRN (Reason: SOB &/OR WHEEZING) Qty: 1 RF: 0 Trelegy Ellipta 1 EACH blister with device 1 puff IH DAILY RF: 0 trazodone 50 MG tablet 50 mg PO QHS PRN PRN (Reason: Sleep) RF: 0 atorvastatin 20 MG tablet 20 mg PO QHS RF: 0 carvedilol 3.125 MG tablet 3.125 mg PO BID RF: 0 aspirin 81 MG tablet,chewable 81 mg PO DAILY RF: 0 Mucinex 1,200 MG tablet 1,200 mg PO BID PRN (Reason: Congestion) RF: 0 lisinopril 2.5 MG tablet 2.5 mg PO DAILY RF: 0 pediatric multivitamin 1 EACH tablet,chewable 1 each PO DAILY RF: 0 cholecalciferol (vitamin D3) 2,000 UNIT capsule 2,000 unit PO DAILY RF: 0 furosemide 20 MG tablet 20 mg PO PRN PRN (Reason: LE swelling) Qty: 15 RF: 0 hydroxyzine HCl 25 mg tablet 25 mg PO QHS RF: 0 Ensure Enlive 120 ML liquid 120 ml PO 4X/DAY RF: 0 Referrals / Follow Up: Matt Peace MD [Primary Care Provider] - Within 2 Weeks Disposition Disposition (needs filled in before D/C Order can be placed): Home Health Service Charges/Coding Visit Charges Inpatient E&M: 06018 Disch Hosp
--- NOTE | 2021-10-03 08:33 | CCN.REFER ---
CCN Referral After multiple phone call attempts - this RN spoke with patient who declines CCN. States she declined HH as well.
== END 2021-09-17 15:14 | disposition home health service (06) | DRG 190 ==
LOC: ED 21:47 → MS2 21:56
PROVIDERS: Admitting Provider Family Medicine; Emergency Provider Emergency Medicine; PCP Family Medicine; Visit Provider Student in an Organized Health Care Education/Training Program
DX: J44.1 Chronic obstructive pulmonary disease with (acute) exacerbation (principal); E43 Unspecified severe protein-calorie malnutrition; Z68.1 Body mass index [BMI] 19.9 or less, adult; J96.11 Chronic respiratory failure with hypoxia; F17.210 Nicotine dependence, cigarettes, uncomplicated; Z99.81 Dependence on supplemental oxygen; I25.10 Atherosclerotic heart disease of native coronary artery without angina pectoris; I25.2 Old myocardial infarction; I10 Essential (primary) hypertension; E78.5 Hyperlipidemia, unspecified; D50.9 Iron deficiency anemia, unspecified; Z79.51 Long term (current) use of inhaled steroids; Z79.899 Other long term (current) drug therapy; R53.81 Other malaise
CPT/HCPCS: 36415; 36600; 71045; 80048; 80053; 82728; 82803; 83540; 83550; 83735; 84100; 84145; 84484; 85025; 87633; 93005; 94640; 94667; 97110; 97162; 97166; 97530; 97535; 97802; 97803; 99251; 99285; J7030; A4216; G0463

== ENCOUNTER 2021-10-13 16:33 | Emergency (ER) | payer MEDICARE, OTHER, SELFPAY ==
[2021-10-13 16:35] VITALS: BP 129/71; PULSE 71; RESP 16; TEMP 36.9; O2SAT 100; BMI 13.8
[2021-10-13 17:07] VITALS: O2SAT 96
[2021-10-13 17:08] VITALS: O2SAT 96
--- NOTE | 2021-10-13 17:21 | RAD_ITS ---
STUDY: X-RAY CHEST REASON FOR EXAM: Female, 76 years old. Sob TECHNIQUE: Single frontal view of the chest. COMPARISON: 09/13/21. FINDINGS: The lungs are clear and expanded. There is no demonstrated pleural abnormality. Nodular density at the right base most likely a nipple shadow. Normal size heart. Normal mediastinum and marco antonio. Normal visualized pulmonary arteries. There is atherosclerotic calcification of the aortic arch with tortuosity. Normal visualized thoracic spine. Normal visualized ribs, clavicles, and shoulders. There is no demonstrated abnormality of the visualized soft tissue structures of the upper abdomen. RAD/Chest 1 View IMPRESSION: No acute process identified. Nodular density at the right base most likely a nipple shadow. Electronically Signed: Ochoa Bucio MD at 17:40 EST Tel , Service support ,
--- NOTE | 2021-10-13 17:45 | EDS_ITS ---
HPI History of Present Illness Chief Complaint: Shortness of Breath Narrative Narrative: 76-year-old female with history of shortness of breath chronically is on 4 L of oxygen via nasal cannula presenting with worsening shortness of breath and a cough for the last 2 days. She denies fever, chills, body aches. She states that she has not been vaccinated for COVID-19 because the last couple of times to schedule an appointment she had a COPD exacerbation and they could not give her the vaccine. She has no known sick contacts. She is not complaining of chest pain. She was given a breathing treatment via EMS and feels improved currently. She is on her baseline oxygen. [facility] Medical History JIM (acute kidney injury) Cardiac dysrhythmia Chronic respiratory failure with hypoxia COPD (chronic obstructive pulmonary disease) COPD (chronic obstructive pulmonary disease) COPD with acute exacerbation Coronary artery disease Elevated troponin Essential (primary) hypertension GI bleed Guaiac positive stools HLD (hyperlipidemia) Hyponatremia Infestation by cimex lectularius Neurogenic bladder Neurogenic bowel Nonobstructive atherosclerosis of coronary artery (Unknown) Osteoporosis Protein calorie malnutrition Tobacco abuse Home Medications albuterol sulfate [Ventolin HFA] 1 - 2 puff INHALATION Q4H PRN 11/26/17 [History Last Taken 02/14/21] gabapentin [Neurontin] 600 mg PO QHS 11/26/17 [History Last Taken 02/13/21] albuterol sulfate 2.5 mg INHALATION Q2H PRN PRN #1 box 11/28/17 [Rx Last Taken 02/14/21] Trelegy Ellipta 1 puff IH DAILY 10/16/18 [History Last Taken 02/14/21] trazodone 50 mg PO QHS PRN PRN 10/30/19 [History Last Taken 02/13/21] atorvastatin 20 mg PO QHS 06/27/20 [History Last Taken 02/13/21] carvedilol 3.125 mg PO BID 06/27/20 [History Last Taken 02/14/21] aspirin 81 mg PO DAILY 01/11/21 [History Last Taken 02/14/21] Mucinex 1,200 mg PO BID PRN 02/14/21 [History Last Taken Unknown] cholecalciferol (vitamin D3) 2,000 unit PO DAILY 02/14/21 [History Last Taken 02/14/21] lisinopril 2.5 mg PO DAILY 02/14/21 [History Last Taken 02/14/21] pediatric multivitamin 1 each PO DAILY 02/14/21 [History Last Taken 02/14/21] furosemide 20 mg PO PRN PRN #15 tab 02/15/21 [Rx Last Taken Unknown] hydroxyzine HCl 25 mg PO QHS 06/29/21 [History Last Taken Unknown] Ensure Enlive 120 ml PO 4X/DAY 07/25/21 [History Last Taken Unknown] prednisone 40 mg PO DAILY #10 tab 09/17/21 [Rx Last Taken Unknown] prednisone 50 mg PO DAILY 5 Days #5 tab 10/13/21 [Rx Last Taken Unknown] Allergy/AdvReac Type Severity Reaction Status Date / Time Sulfa (Sulfonamide Allergy FACE GETS Verified 10/13/21 16:38 Antibiotics) RED AND ITCHY codeine AdvReac Nausea Verified 10/13/21 16:38 Family History Father Kidney disease Sister Breast cancer Sister Cancer lung Surgical History History of back surgery History of breast lump removal History of hysterectomy History of left heart catheterization (LHC) (01/17/21) Social History household members: family Smoking Status: Current some day smoker tobacco type: cigarettes second hand exposure: No alcohol intake: never substance use type: does not use ROS ROS ED Constitutional Constitutional ED: Denies chills, fever(s) or weight loss Eyes Eyes: Denies blurry vision or diplopia ENT ENT ED: Denies rhinorrhea or sore throat Cardiovascular Cardiovascular: Denies chest pain or palpitations Respiratory/Chest Respiratory/Chest: Reports cough and dyspnea Gastrointestinal Gastrointestinal: Denies abdominal pain, nausea or vomiting Genitourinary Genitourinary ED: Denies dysuria or hematuria Musculoskeletal Musculoskeletal: Denies arthralgias, back pain, myalgias or neck pain Integumentary Denies Abrasions or rash Neurologic Neurologic: Denies headache(s) or paresthesias Psychiatric Psychiatric: Denies anxiety or depression EXAM Physical Exam Const Vital Signs: 10/13/21 16:35 10/13/21 17:07 10/13/21 17:08 Temperature 98.5 F Temperature Source Temporal Pulse Rate 71 Respiratory Rate 16 Respiratory Effort Short of Breath Respiratory Depth Deep Respiratory Pattern Tachypnea Blood Pressure 129/71 H Blood Pressure Mean 90 Pulse Ox 100 96 Oxygen Delivery Method Nasal Cannula Nasal Cannula Nasal Cannula Oxygen Flow Rate (L/min) 4 4 10/13/21 19:17 Temperature Temperature Source Pulse Rate Respiratory Rate 96 H Respiratory Effort Respiratory Depth Respiratory Pattern Blood Pressure Blood Pressure Mean Pulse Ox Oxygen Delivery Method Nasal Cannula Oxygen Flow Rate (L/min) 4 Positive cachectic General Appearance ED: cachectic and NAD; Negative for pallor Nutritional Appearance: cachectic HEENT Reports dry mucous membranes atraumatic Mouth ED: Yes dry mucous membranes Mouth: dry mucous membranes Eyes PERRL and EOMs intact bilaterally Resp normal respiratory effort Auscultation: wheezes expiratory wheezes Cardio regular rate and regular rhythm Extremity normal to inspection General Extremety ED: Negative for edema or tenderness General Extremity: Negative for edema Neuro oriented x3, CN's II-XII intact bilaterally and no sensory deficits noted Sensorium / Orientation: alert Motor Exam: strength 5/5 throughout Psych mental status grossly normal Thought Process: normal thought process Skin General Skin Exam: Negative for jaundice or pallor MDM MDM MDM Narrative Medical decision making narrative: Patient presenting with COPD exacerbation. She is given breathing treatments prior to arrival and she feels improved. She was given Solu-Medrol here. She states she does not need another breathing treatment. She also states that she has albuterol and duo nebs at home. CBC shows no leukocytosis. Hemoglobin is stable and at near baseline at 8.8. Platelet count is normal. Renal function and electrolytes are normal. Other than alkaline phosphatase elevated at 142 her LFTs are normal. Chest x-ray on my interpretation shows no acute cardiopulmonary process and the radiologist does agree. Since patient is feeling better I will place her on a prednisone burst she will continue doing breathing treatments at home. She is given return precautions. Impression: 1. COPD exacerbation Lab Data Labs: Laboratory Results - last 24 hr 10/13/21 10/13/21 17:59 17:59 WBC 5.2 RBC 2.94 L Hgb 8.8 L Hct 28.8 L MCV 98.0 MCH 29.9 MCHC 30.6 L RDW Std Deviation 46.5 H RDW Coeff of Ashu 12.9 Plt Count 254 MPV 10.6 Immature Gran % (Auto) 0.400 Neut % (Auto) 58.2 Lymph % (Auto) 17.3 L [place] % (Auto) 10.4 H Eos % (Auto) 12.7 H Baso % (Auto) 1.0 Absolute Neuts (auto) 3.0 Absolute Lymphs (auto) 0.90 Nucleated RBC % 0 Sodium 133 L Potassium 4.2 Chloride 93 L Carbon Dioxide 38.0 H Anion Gap 2 L BUN 14 Creatinine 0.69 Estim Creat Clear Calc 28.89 Est GFR (MDRD) Af Amer 106 Est GFR (MDRD) Non-Af 88 BUN/Creatinine Ratio 20.2 H Glucose 88 Calcium 8.6 Total Bilirubin 0.40 AST 16 ALT 12 L Alkaline Phosphatase 142 H Total Protein 5.9 L Albumin 3.0 L Globulin 2.9 Albumin/Globulin Ratio 1.0 Radiography Diagnostic Testing: Clinical Impression(s) from Imaging Studies Chest X-Ray 10/13/21 17:21 IMPRESSION: No acute process identified. Nodular density at the right base most likely a nipple shadow. Electronically Signed: Ochoa Bucio MD at 17:40 EST Tel , Service support , Discharge Plan Triage Chief Complaint: Shortness of Breath ED Provider: Foster Don Dx/Rx/DC Orders Instructions: ED COPD Flare Prescriptions: New prednisone 50 mg tablet 50 mg PO DAILY 5 Days Qty: 5 RF: 0 No Action gabapentin [Neurontin] 300 MG capsule 600 mg PO QHS RF: 0 albuterol sulfate [Ventolin HFA] 108 HFA aerosol inhaler 1 - 2 puff inhalation Q4H PRN (Reason: Sob &/Or Wheezing) RF: 0 albuterol sulfate 2.5 MG/3 ML solution for nebulization 2.5 mg INHALATION Q2H PRN PRN (Reason: SOB &/OR WHEEZING) Qty: 1 RF: 0 Trelegy Ellipta 1 EACH blister with device 1 puff IH DAILY RF: 0 trazodone 50 MG tablet 50 mg PO QHS PRN PRN (Reason: Sleep) RF: 0 atorvastatin 20 MG tablet 20 mg PO QHS RF: 0 carvedilol 3.125 MG tablet 3.125 mg PO BID RF: 0 aspirin 81 MG tablet,chewable 81 mg PO DAILY RF: 0 Mucinex 1,200 MG tablet 1,200 mg PO BID PRN (Reason: Congestion) RF: 0 lisinopril 2.5 MG tablet 2.5 mg PO DAILY RF: 0 pediatric multivitamin 1 EACH tablet,chewable 1 each PO DAILY RF: 0 cholecalciferol (vitamin D3) 2,000 UNIT capsule 2,000 unit PO DAILY RF: 0 furosemide 20 MG tablet 20 mg PO PRN PRN (Reason: LE swelling) Qty: 15 RF: 0 hydroxyzine HCl 25 mg tablet 25 mg PO QHS RF: 0 Ensure Enlive 120 ML liquid 120 ml PO 4X/DAY RF: 0 prednisone 20 mg tablet 40 mg PO DAILY Qty: 10 RF: 0 Primary Care Provider: Matt Peace Referrals: Matt Peace MD [Primary Care Provider] - Disposition Disposition: Home, Self Care
[2021-10-13] MEDS: MethylPREDNISolone 125 MG/2 ML Vial IV (18:06)
[2021-10-13 18:34] LABS: Basophil# 0.05 X10^3/uL; Eosinophil# 0.66 X10^3/uL; Eosinophils% 12.7 % (0-5); Hematocrit 28.8 % (37-47); Hemoglobin 8.8 g/dL (12.0-15.0); Lymphocyte % 17.3 % (19-41); Mean Corp Hgb Conc 30.6 g/dL (32-36); Mean Corpuscular Hgb 29.9 pg (27.0-32.0); Mean Platelet Vol. 10.6 fl (6.2-12.0); Monocyte# 0.54 X10^3/uL; Monocyte% 10.4 % (0-10); NRBC Flagged by Analyzer 0 % (0-5); Neutrophil # 3.04 X10^3/uL (2.7-7.7); Neutrophil % 58.2 % (47-70); Platelet Count 254 K/mm3 (150-450); RBC Distribution Width CV 12.9 % (11.6-14.6); RBC Distribution Width SD 46.5 fl (35.1-43.9); Red Blood Count 2.94 M/mm3 (4.2-5.4); White Blood Count 5.2 K/mm3 (4.4-11.0)
[2021-10-13 18:46] LABS: AST(SGOT) 16 U/L (15-37); Alanine Aminotransfer ALT/SGPT 12 U/L (13-56); Alkaline Phosphatase 142 U/L (45-117); Anion Gap 2 (5-15); BUN 14 mg/dL (7-18); BUN/Creat Ratio 20.2 RATIO (10-20); Calcium,Total 8.6 mg/dL (8.5-10.1); Chloride 93 mmol/L (98-107); Creatinine, Serum 0.69 mg/dL (0.55-1.02); EST Glomerular Filtration Rate 88 mL/min (>60); Est Glom Filt Rate - Afr Amer 106 mL/min (>60); Estimated Creatinine Clearance 28.89 ml/min; Globulin 2.9 g/dL (2.2-4.2); Glucose 88 mg/dL (74-106); Potassium 4.2 mmol/L (3.5-5.1); Protein, Total 5.9 g/dL (6.4-8.2); Sodium Level 133 mmol/L (136-145)
[2021-10-13 19:17] VITALS: RESP 96
== END 2021-10-13 19:49 | disposition home or self-care (01) ==
PROVIDERS: Emergency Provider Student in an Organized Health Care Education/Training Program; PCP Family Medicine
DX: J44.1 Chronic obstructive pulmonary disease with (acute) exacerbation (principal); I25.10 Atherosclerotic heart disease of native coronary artery without angina pectoris; I10 Essential (primary) hypertension; E78.5 Hyperlipidemia, unspecified; F17.210 Nicotine dependence, cigarettes, uncomplicated; Z79.82 Long term (current) use of aspirin; Z79.52 Long term (current) use of systemic steroids; Z79.899 Other long term (current) drug therapy; Z99.81 Dependence on supplemental oxygen
CPT/HCPCS: 71045; 80053; 85025; 87426; 96374; 99284; A4216

== ENCOUNTER 2021-11-02 12:37 | Inpatient (IN) | payer MEDICARE, OTHER, SELFPAY ==
[2021-11-02] VITALS (11 sets, daily range): BP systolic 101–162; BP diastolic 57–89; PULSE 61–70; RESP 16–25; TEMP 36.3–37.1; O2SAT 91–100; BMI 15.7; BMI 15.0
--- NOTE | 2021-11-02 13:22 | EKG12_ITS ---
Test Reason : SOB Blood Pressure : / mmHG Vent. Rate : 060 BPM Atrial Rate : 060 BPM P-R Int : 116 ms QRS Dur : 060 ms QT Int : 406 ms P-R-T Axes : 076 086 067 degrees QTc Int : 406 ms Somatic/Motion artifact Normal sinus rhythm Confirmed by DECLAN CEJA, GERBER ([id number]), fan mail editor CATHERINE CARBAJAL ([id number]) on 11/09/2021 10:48:44 AM Referred By: ALLEN Confirmed By:GERBER MANRIQUEZ MD
--- NOTE | 2021-11-02 13:24 | EDS_ITS ---
HPI History of Present Illness Chief Complaint: Shortness of Breath Narrative Narrative: 76-year-old female with COPD history and normally wears 4 L at baseline presenting with dyspnea. She states that she was here in the ED recently and had an evaluation and was discharged home on prednisone. She has home nebulizers and has been using them. She states she initially got better and then started to feel more dyspneic. 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 She denies fever, chills. She has a mild cough. She has no body aches or loss of taste or smell. She denies chest pain PFSH [facility] Medical History JIM (acute kidney injury) Cardiac dysrhythmia Chronic respiratory failure with hypoxia COPD (chronic obstructive pulmonary disease) COPD (chronic obstructive pulmonary disease) COPD with acute exacerbation Coronary artery disease Elevated troponin Essential (primary) hypertension GI bleed Guaiac positive stools HLD (hyperlipidemia) Hyponatremia Infestation by cimex lectularius Neurogenic bladder Neurogenic bowel Nonobstructive atherosclerosis of coronary artery (Unknown) Osteoporosis Protein calorie malnutrition Tobacco abuse Home Medications albuterol sulfate [Ventolin HFA] 1 - 2 puff INHALATION Q4H PRN 11/26/17 [History Last Taken 02/14/21] gabapentin [Neurontin] 600 mg PO QHS 11/26/17 [History Last Taken 02/13/21] albuterol sulfate 2.5 mg INHALATION Q2H PRN PRN #1 box 11/28/17 [Rx Last Taken 02/14/21] Trelegy Ellipta 1 puff IH DAILY 10/16/18 [History Last Taken 02/14/21] trazodone 50 mg PO QHS PRN PRN 10/30/19 [History Last Taken 02/13/21] atorvastatin 20 mg PO QHS 06/27/20 [History Last Taken 02/13/21] carvedilol 3.125 mg PO BID 06/27/20 [History Last Taken 02/14/21] aspirin 81 mg PO DAILY 01/11/21 [History Last Taken 02/14/21] Mucinex 1,200 mg PO BID PRN 02/14/21 [History Last Taken Unknown] cholecalciferol (vitamin D3) 2,000 unit PO DAILY 02/14/21 [History Last Taken 02/14/21] lisinopril 2.5 mg PO DAILY 02/14/21 [History Last Taken 02/14/21] pediatric multivitamin 1 each PO DAILY 02/14/21 [History Last Taken 02/14/21] furosemide 20 mg PO PRN PRN #15 tab 02/15/21 [Rx Last Taken Unknown] hydroxyzine HCl 25 mg PO QHS 06/29/21 [History Last Taken Unknown] Ensure Enlive 120 ml PO 4X/DAY 07/25/21 [History Last Taken Unknown] prednisone 40 mg PO DAILY #10 tab 09/17/21 [Rx Last Taken Unknown] prednisone 50 mg PO DAILY 5 Days #5 tab 10/13/21 [Rx Last Taken Unknown] Allergy/AdvReac Type Severity Reaction Status Date / Time Sulfa (Sulfonamide Allergy FACE GETS Verified 10/13/21 16:38 Antibiotics) RED AND ITCHY codeine AdvReac Nausea Verified 10/13/21 16:38 Family History Father Kidney disease Sister Breast cancer Sister Cancer lung Surgical History History of back surgery History of breast lump removal History of hysterectomy History of left heart catheterization (LHC) (01/17/21) Social History household members: family Smoking Status: Current some day smoker tobacco type: cigarettes second hand exposure: No alcohol intake: never substance use type: does not use ROS ROS ED Constitutional Constitutional ED: Denies chills or fever(s) Eyes Eyes: Denies blurry vision or diplopia ENT ENT ED: Denies rhinorrhea or sore throat Cardiovascular Cardiovascular: Denies chest pain or palpitations Respiratory/Chest Respiratory/Chest: Reports cough, dyspnea and dyspnea on exertion Gastrointestinal Gastrointestinal: Denies abdominal pain, constipation, diarrhea, nausea or vomiting Genitourinary Genitourinary ED: Denies dysuria or hematuria Musculoskeletal Musculoskeletal: Denies arthralgias or myalgias Integumentary Denies Abrasions or rash Neurologic Neurologic: Denies headache(s) or weakness EXAM Physical Exam Const Vital Signs: 11/02/21 12:39 11/02/21 12:49 11/02/21 12:50 Temperature 98.2 F 98.2 F Temperature Source Oral Oral Pulse Rate 68 65 Respiratory Rate 22 H 22 H Respiratory Effort Short of Breath Pursed Lip Respiratory Depth Deep Respiratory Pattern Tachypnea Blood Pressure 142/72 H 142/72 H Blood Pressure Mean 95 95 Pulse Ox 95 Oxygen Delivery Method Nasal Cannula Nasal Cannula Nasal Cannula Oxygen Flow Rate (L/min) 4 4 2 11/02/21 14:26 11/02/21 16:10 Temperature 97.3 F L Temperature Source Temporal Pulse Rate 62 64 Respiratory Rate 16 25 H Respiratory Effort Respiratory Depth Respiratory Pattern Blood Pressure 139/62 H 157/85 H Blood Pressure Mean 87 109 Pulse Ox 95 91 Oxygen Delivery Method Nasal Cannula Nasal Cannula Oxygen Flow Rate (L/min) 4 Positive cachectic General Appearance ED: cachectic and NAD; Negative for pallor Nutritional Appearance: cachectic HEENT Reports dry mucous membranes atraumatic Mouth ED: Yes dry mucous membranes Mouth: dry mucous membranes Eyes PERRL and EOMs intact bilaterally Neck no lymphadenopathy and supple Resp Resp Narrative: Tachypneic, but speaking in full sentences. No accessory muscle use. Auscultation: rales diffuse and wheezes scattered wheezes Cardio regular rate and regular rhythm Neuro oriented x3 and CN's II-XII intact bilaterally Sensorium / Orientation: alert Psych mental status grossly normal Thought Process: normal thought process Skin General Skin Exam: Negative for jaundice or pallor Rashes: no rashes MDM MDM MDM Narrative Medical decision making narrative: Patient presenting with COPD exacerbation. She was seen last week for similar symptoms. She was seen by myself and disc harged home after her work-up was normal and she was doing well with prednisone until she ran out. She states that she is currently back where she was prior to her last visit. She did not follow-up with pulmonology in between. Patient was given breathing treatments and Solu-Medrol. She did feel improved. Her hemoglobin is low at 8.5 but near her baseline. High-sensitivity troponin is 10. EKG on my interpretation shows a sinus rhythm with a ventricular rate of 60 bpm without sign of ischemic change. Chest x-ray on my interpretation shows no acute cardiopulmonary process the radiologist does agree. D-dimer is negative. CMP is unremarkable. Patient was ambulated on her baseline oxygen and dropped to 88% with simply standing up on the side of the bed. Impression: 1. COPD exacerbation 2. Hypoxia Lab Data Attestation: I reviewed the patient's lab results. Labs: Laboratory Results - last 24 hr 11/02/21 11/02/21 11/02/21 13:45 13:45 13:45 WBC 6.2 RBC 2.92 L Hgb 8.5 L Hct 29.1 L MCV 99.7 H MCH 29.1 MCHC 29.2 L RDW Std Deviation 47.2 H RDW Coeff of Ashu 13.0 Plt Count 182 MPV 10.3 Immature Gran % (Auto) 0.300 Neut % (Auto) 66.1 Lymph % (Auto) 11.4 L [place] % (Auto) 7.7 Eos % (Auto) 14.0 H Baso % (Auto) 0.5 Absolute Neuts (auto) 4.1 Absolute Lymphs (auto) 0.71 L Nucleated RBC % 0 D-Dimer Quant (PE/DVT) Sodium 135 L Potassium 4.4 Chloride 92 L Carbon Dioxide 40.0 H Anion Gap 3 L BUN 14 Creatinine 0.77 Estim Creat Clear Calc 33.00 Est GFR (MDRD) Af Amer 93 Est GFR (MDRD) Non-Af 77 BUN/Creatinine Ratio 18.1 Glucose 122 H Calcium 8.5 Total Bilirubin 0.50 AST 14 L ALT 12 L Alkaline Phosphatase 140 H Troponin I High Sens 10 Total Protein 5.7 L Albumin 2.9 L Globulin 2.8 Albumin/Globulin Ratio 1.0 11/02/21 14:05 WBC RBC Hgb Hct MCV MCH MCHC RDW Std Deviation RDW Coeff of Ashu Plt Count MPV Immature Gran % (Auto) Neut % (Auto) Lymph % (Auto) [place] % (Auto) Eos % (Auto) Baso % (Auto) Absolute Neuts (auto) Absolute Lymphs (auto) Nucleated RBC % D-Dimer Quant (PE/DVT) 0.61 H* Sodium Potassium Chloride Carbon Dioxide Anion Gap BUN Creatinine Estim Creat Clear Calc Est GFR (MDRD) Af Amer Est GFR (MDRD) Non-Af BUN/Creatinine Ratio Glucose Calcium Total Bilirubin AST ALT Alkaline Phosphatase Troponin I High Sens Total Protein Albumin Globulin Albumin/Globulin Ratio Radiography Diagnostic Testing: Clinical Impression(s) from Imaging Studies Chest X-Ray 11/02/21 14:15 IMPRESSION: Hyperinflation. Stable linear scar or atelectasis at the left lung base. Electronically Signed: Valentin Flores MD at 14:41 EST , Service support , Discharge Plan Triage Chief Complaint: Shortness of Breath ED Provider: Foster Don Dx/Rx/DC Orders Prescriptions: No Action gabapentin [Neurontin] 300 MG capsule 600 mg PO QHS RF: 0 albuterol sulfate [Ventolin HFA] 108 HFA aerosol inhaler 1 - 2 puff inhalation Q4H PRN (Reason: Sob &/Or Wheezing) RF: 0 albuterol sulfate 2.5 MG/3 ML solution for nebulization 2.5 mg INHALATION Q2H PRN PRN (Reason: SOB &/OR WHEEZING) Qty: 1 RF: 0 Trelegy Ellipta 1 EACH blister with device 1 puff IH DAILY RF: 0 trazodone 50 MG tablet 50 mg PO QHS PRN PRN (Reason: Sleep) RF: 0 atorvastatin 20 MG tablet 20 mg PO QHS RF: 0 carvedilol 3.125 MG tablet 3.125 mg PO BID RF: 0 aspirin 81 MG tablet,chewable 81 mg PO DAILY RF: 0 Mucinex 1,200 MG tablet 1,200 mg PO BID PRN (Reason: Congestion) RF: 0 lisinopril 2.5 MG tablet 2.5 mg PO DAILY RF: 0 pediatric multivitamin 1 EACH tablet,chewable 1 each PO DAILY RF: 0 cholecalciferol (vitamin D3) 2,000 UNIT capsule 2,000 unit PO DAILY RF: 0 furosemide 20 MG tablet 20 mg PO PRN PRN (Reason: LE swelling) Qty: 15 RF: 0 hydroxyzine HCl 25 mg tablet 25 mg PO QHS RF: 0 Ensure Enlive 120 ML liquid 120 ml PO 4X/DAY RF: 0 prednisone 20 mg tablet 40 mg PO DAILY Qty: 10 RF: 0 prednisone 50 mg tablet 50 mg PO DAILY 5 Days Qty: 5 RF: 0 Primary Care Provider: Matt Peace
[2021-11-02] MEDS: MethylPREDNISolone 125 MG/2 ML Vial IV (13:42)
[2021-11-02 13:50] LABS: Absolute Lymphocyte Count 0.71 X10^3/uL (0.83-4.51); Absolute Neutrophil Count 4.1 X10^3/uL (2.0-7.7); Basophil# 0.03 X10^3/uL; Basophil% 0.5 % (0-1); Eosinophil# 0.87 X10^3/uL; Hematocrit 29.1 % (37-47); Hemoglobin 8.5 g/dL (12.0-15.0); Lymphocyte # 0.71 X10^3/ul (0.83-4.51); Lymphocyte % 11.4 % (19-41); Mean Corp Hgb Conc 29.2 g/dL (32-36); Mean Corpuscular Hgb 29.1 pg (27.0-32.0); Mean Corpuscular Volume 99.7 fL (81-99); Mean Platelet Vol. 10.3 fl (6.2-12.0); Monocyte# 0.48 X10^3/uL; Monocyte% 7.7 % (0-10); NRBC Flagged by Analyzer 0 % (0-5); Neutrophil % 66.1 % (47-70); Platelet Count 182 K/mm3 (150-450); RBC Distribution Width SD 47.2 fl (35.1-43.9); Red Blood Count 2.92 M/mm3 (4.2-5.4); White Blood Count 6.2 K/mm3 (4.4-11.0)
[2021-11-02] MEDS: Albuterol 2.5 MG/3 ML VIAL.NEB. INHALATION (14:00)
[2021-11-02] MEDS: Ipratropium/Albuterol Sulfate 3 ML AMPUL.NEB INHALATION (14:00)
[2021-11-02 14:09] LABS: Troponin-I HS 10 pg/mL (3.0-54.0)
--- NOTE | 2021-11-02 14:15 | RAD_ITS ---
STUDY: X-RAY CHEST REASON FOR EXAM: Female, 76 years old. Dyspnea TECHNIQUE: Single AP portable view of the chest. COMPARISON: Comparison is made with prior chest radiograph dated 10/13/2021. FINDINGS: EKG electrodes are seen. There is hyperinflation of the lungs consistent with chronic obstructive lung disease (COPD). Stable linear scar or linear atelectasis at the left lung base. There is no demonstrated pleural abnormality. Normal size heart. Normal mediastinum and marco antonio. Normal visualized pulmonary arteries. There is atherosclerotic calcification of the aortic arch with tortuosity. There are diffuse degenerative changes of the visualized thoracic spine. Normal visualized ribs, clavicles, and shoulders. There is no demonstrated abnormality of the visualized soft tissue structures of the upper abdomen. RAD/Chest 1 View (Portable) IMPRESSION: Hyperinflation. Stable linear scar or atelectasis at the left lung base. Electronically Signed: Valentin Flores MD at 14:41 EST , Service support ,
[2021-11-02 14:32] LABS: D-Dimer Quantitative (DVT/PE) 0.61 FEU/ug/m (0.27-0.49)
--- NOTE | 2021-11-02 17:17 | ED.RN ---
Attempt to ambulate patient and patient experienced increased shortness of breath after approx. 1 minute of ambulation. Patient began with 95%spo2 on 4 lpm, dropped to 88%. REsting in bed at 6 lpm [id number]
[2021-11-02 18:01] LABS: AST(SGOT) 14 U/L (15-37); Alanine Aminotransfer ALT/SGPT 12 U/L (13-56); Albumin, Serum 2.9 g/dL (3.2-5.0); Alkaline Phosphatase 140 U/L (45-117); Anion Gap 3 (5-15); BUN 14 mg/dL (7-18); BUN/Creat Ratio 18.1 RATIO (10-20); Calcium,Total 8.5 mg/dL (8.5-10.1); Chloride 92 mmol/L (98-107); Creatinine, Serum 0.77 mg/dL (0.55-1.02); EST Glomerular Filtration Rate 77 mL/min (>60); Est Glom Filt Rate - Afr Amer 93 mL/min (>60); Globulin 2.8 g/dL (2.2-4.2); Glucose 122 mg/dL (74-106); Potassium 4.4 mmol/L (3.5-5.1); Protein, Total 5.7 g/dL (6.4-8.2); Sodium Level 135 mmol/L (136-145)
--- NOTE | 2021-11-02 18:13 | PCM.HP.STD ---
HPI - General HPI Narrative FLORY ALBERTO, is a 76 F who presents worsening shortness of breath. Patient is on chronic oxygen 4 L. Patient has just been progressively short of breath with exertion such as going up stairs. Received methylprednisolone as well as bronchodilators in the emergency room. Still feels short of breath and not at her baseline at this time. She has not been around anyone with COVID-19 nor has she been vaccinated for COVID-19. She states that her reason she is not vaccinated is she had some appointments that were canceled. I reminded her that Covid vaccines been around for the past year. She refuted that that statement. [facility] Medical History JIM (acute kidney injury) Cardiac dysrhythmia Chronic respiratory failure with hypoxia COPD (chronic obstructive pulmonary disease) COPD (chronic obstructive pulmonary disease) COPD with acute exacerbation Coronary artery disease Elevated troponin Essential (primary) hypertension GI bleed Guaiac positive stools HLD (hyperlipidemia) Hyponatremia Infestation by cimex lectularius Neurogenic bladder Neurogenic bowel Nonobstructive atherosclerosis of coronary artery (Unknown) Osteoporosis Protein calorie malnutrition Tobacco abuse Home Medications albuterol sulfate [Ventolin HFA] 1 - 2 puff INHALATION Q4H PRN 11/26/17 [History Last Taken 02/14/21] gabapentin [Neurontin] 600 mg PO QHS 11/26/17 [History Last Taken 02/13/21] albuterol sulfate 2.5 mg INHALATION Q2H PRN PRN #1 box 11/28/17 [Rx Last Taken 02/14/21] Trelegy Ellipta 1 puff IH DAILY 10/16/18 [History Last Taken 02/14/21] trazodone 50 mg PO QHS PRN PRN 10/30/19 [History Last Taken 02/13/21] atorvastatin 20 mg PO QHS 06/27/20 [History Last Taken 02/13/21] carvedilol 3.125 mg PO BID 06/27/20 [History Last Taken 02/14/21] aspirin 81 mg PO DAILY 01/11/21 [History Last Taken 02/14/21] Mucinex 1,200 mg PO BID PRN 02/14/21 [History Last Taken Unknown] cholecalciferol (vitamin D3) 2,000 unit PO DAILY 02/14/21 [History Last Taken 02/14/21] lisinopril 2.5 mg PO DAILY 02/14/21 [History Last Taken 02/14/21] pediatric multivitamin 1 each PO DAILY 02/14/21 [History Last Taken 02/14/21] furosemide 20 mg PO PRN PRN #15 tab 02/15/21 [Rx Last Taken Unknown] hydroxyzine HCl 25 mg PO QHS 06/29/21 [History Last Taken Unknown] Ensure Enlive 120 ml PO 4X/DAY 07/25/21 [History Last Taken Unknown] prednisone 40 mg PO DAILY #10 tab 09/17/21 [Rx Last Taken Unknown] prednisone 50 mg PO DAILY 5 Days #5 tab 10/13/21 [Rx Last Taken Unknown] Allergy/AdvReac Type Severity Reaction Status Date / Time Sulfa (Sulfonamide Allergy FACE GETS Verified 10/13/21 16:38 Antibiotics) RED AND ITCHY codeine AdvReac Nausea Verified 10/13/21 16:38 Family History Father Kidney disease Sister Breast cancer Sister Cancer lung Surgical History History of back surgery History of breast lump removal History of hysterectomy History of left heart catheterization (LHC) (01/17/21) Social History household members: family Smoking Status: Current some day smoker tobacco type: cigarettes second hand exposure: No alcohol intake: never substance use type: does not use ROS ROS Narrative All review of systems were negative except as mentioned above in the history of present illness and the other review of systems. Vital Signs Vital Signs Vital Signs: 11/02/21 12:39 11/02/21 12:49 11/02/21 12:50 Temperature 36.8 C 36.8 C Temperature Source Oral Oral Pulse Rate 68 65 Respiratory Rate 22 H 22 H Respiratory Effort Short of Breath Pursed Lip Respiratory Depth Deep Respiratory Pattern Tachypnea Blood Pressure 142/72 H 142/72 H Blood Pressure Mean 95 95 Pulse Ox 95 Oxygen Delivery Method Nasal Cannula Nasal Cannula Nasal Cannula Oxygen Flow Rate (L/min) 4 4 2 11/02/21 14:26 11/02/21 16:10 Temperature 36.3 C L Temperature Source Temporal Pulse Rate 62 64 Respiratory Rate 16 25 H Respiratory Effort Respiratory Depth Respiratory Pattern Blood Pressure 139/62 H 157/85 H Blood Pressure Mean 87 109 Pulse Ox 95 91 Oxygen Delivery Method Nasal Cannula Nasal Cannula Oxygen Flow Rate (L/min) 4 Weight Weight: 43 kg Body Mass Index (BMI) 15.7 Physical Exam Const alert and oriented x3 Constitutional Narrative: No respiratory distress. No conversational dyspnea. Cachectic. HEENT normocephalic and head/scalp atraumatic Resp Resp Narrative: Diminished throughout with bilateral wheezes Cardio regular rate, regular rhythm, S1 normal heart sound and S2 normal heart sound GI normal to inspection, nondistended, normoactive bowel sounds, soft to palpation and non-tender Skin no rashes or lesions noted Neuro oriented x3 Sensorium / Orientation: awake, alert and oriented to person Results Lab / Micro Data Attestation: I reviewed the patient's lab results. Result Diagrams: 11/02/21 13:45 11/02/21 13:45 Labs: Laboratory Results - last 24 hr 11/02/21 13:45: WBC 6.2, RBC 2.92 L, Hgb 8.5 L, Hct 29.1 L, MCV 99.7 H, MCH 29.1, MCHC 29.2 L, RDW Std Deviation 47.2 H, RDW Coeff of Ashu 13.0, Plt Count 182, MPV 10.3, Immature Gran % (Auto) 0.300, Neut % (Auto) 66.1, Lymph % (Auto) 11.4 L, Rock % (Auto) 7.7, Eos % (Auto) 14.0 H, Baso % (Auto) 0.5, Absolute Neuts (auto) 4.1, Absolute Lymphs (auto) 0.71 L, Nucleated RBC % 0 11/02/21 13:45: Troponin I High Sens 10 11/02/21 13:45: Sodium 135 L, Potassium 4.4, Chloride 92 L, Carbon Dioxide 40.0 H, Anion Gap 3 L, BUN 14, Creatinine 0.77, Estim Creat Clear Calc 33.00, Est GFR (MDRD) Af Amer 93, Est GFR (MDRD) Non-Af 77, BUN/Creatinine Ratio 18.1, Glucose 122 H, Calcium 8.5, Total Bilirubin 0.50, AST 14 L, ALT 12 L, Alkaline Phosphatase 140 H, Total Protein 5.7 L, Albumin 2.9 L, Globulin 2.8, Albumin/Globulin Ratio 1.0 11/02/21 14:05: D-Dimer Quant (PE/DVT) 0.61 H* Micro: Microbiology 11/02/21 13:30 Nasal Secretion SARS-CoV-2 Antigen (Rapid) - Final Radiology Impression Chest X-Ray 11/02/21 14:15 IMPRESSION: Hyperinflation. Stable linear scar or atelectasis at the left lung base. Electronically Signed: Valentin Flores MD at 14:41 EST , Service support , Assessment & Plan Assessment/Plan (1) COPD with acute exacerbation: PLAN: 1. Acute COPD exacerbation COVID-19 was negative. Continue with bronchodilators as well as methylprednisolone Anticipate hospitalization for 2 to 3 days 2. COVID-19 vaccination status Unvaccinated patient stating that she had appointments recently scheduled that had to be canceled. That may very well be the case but little skeptical that she was not vaccinated sooner. 3. VTE prophylaxis with enoxaparin 4. CODE STATUS: Addressed with patient. Patient wishes to be full code. Charges/Coding Visit Charges Inpatient E&M: 22606 Init Hosp L2
[2021-11-02] MEDS: 0.9% Saline Lock 10 ML Syringe IV (23:19)
[2021-11-02] MEDS: Atorvastatin Calcium 20 MG Tablet PO (23:20)
[2021-11-02] MEDS: hydrOXYzine PAM 25 MG Capsule PO (23:20)
[2021-11-02] MEDS: Gabapentin 600 MG Tablet PO (23:20)
[2021-11-02] MEDS: Carvedilol 3.125 MG TABLET PO (23:20)
[2021-11-03] VITALS (10 sets, daily range): BP systolic 130–168; BP diastolic 67–70; PULSE 60–70; RESP 16–20; TEMP 36.5–36.6; O2SAT 88–98
[2021-11-03] MEDS: Ipratropium/Albuterol Sulfate 3 ML AMPUL.NEB INHALATION ×3 (03:04→11:36)
--- NOTE | 2021-11-03 04:21 | PCS.PANDOC ---
PANDEMIC DOCUMENTATION INITIATED: Date: 11/02/21 Time: 1899
[2021-11-03] MEDS: 0.9% Saline Lock 10 ML Syringe IV ×2 (06:35→13:41)
[2021-11-03 07:16] LABS: Absolute Lymphocyte Count 0.38 X10^3/uL (0.83-4.51); Absolute Neutrophil Count 3.6 X10^3/uL (2.0-7.7); Hematocrit 30.4 % (37-47); Hemoglobin 9.3 g/dL (12.0-15.0); Lymphocyte # 0.38 X10^3/ul (0.83-4.51); Lymphocyte % 9.4 % (19-41); Mean Corp Hgb Conc 30.6 g/dL (32-36); Mean Corpuscular Volume 94.7 fL (81-99); Mean Platelet Vol. 10.4 fl (6.2-12.0); Monocyte% 2.5 % (0-10); NRBC Flagged by Analyzer 0 % (0-5); Neutrophil # 3.56 X10^3/uL (2.7-7.7); Neutrophil % 87.6 % (47-70); POSITIVE DIFFERENTIAL YES; Platelet Count 210 K/mm3 (150-450); RBC Distribution Width SD 44.8 fl (35.1-43.9); Red Blood Count 3.21 M/mm3 (4.2-5.4); White Blood Count 4.1 K/mm3 (4.4-11.0)
[2021-11-03 07:21] LABS: Differential Indicated SCAN CRITERIA MET
[2021-11-03 07:50] LABS: ALB/GLOB Ratio 0.9 RATIO (0.9-2.4); AST(SGOT) 16 U/L (15-37); Alanine Aminotransfer ALT/SGPT 12 U/L (13-56); Alkaline Phosphatase 147 U/L (45-117); Anion Gap 5 (5-15); BUN 18 mg/dL (7-18); BUN/Creat Ratio 20.1 RATIO (10-20); Calcium,Total 9.1 mg/dL (8.5-10.1); Chloride 92 mmol/L (98-107); EST Glomerular Filtration Rate 65 mL/min (>60); Est Glom Filt Rate - Afr Amer 79 mL/min (>60); Estimated Creatinine Clearance 34.81 ml/min; Globulin 3.2 g/dL (2.2-4.2); Glucose 129 mg/dL (74-106); Potassium 4.1 mmol/L (3.5-5.1); Protein, Total 6.2 g/dL (6.4-8.2); Sodium Level 135 mmol/L (136-145)
[2021-11-03] MEDS: Multivitamins,Therapeutic Tablet 1 TABLET PO (08:15)
[2021-11-03] MEDS: Carvedilol 3.125 MG TABLET PO (08:15)
[2021-11-03] MEDS: Lisinopril 2.5 MG Tablet PO (08:15)
[2021-11-03] MEDS: Enoxaparin 40 MG/0.4 ML Syringe SC (08:15)
[2021-11-03] MEDS: Aspirin 81 MG TAB.CHEW PO (08:15)
[2021-11-03] MEDS: Cholecalciferol (VIT D3) 25 MCG TABLET (1,000 UNITS) 50 MCG PO (08:15)
[2021-11-03 08:53] LABS: Differential Comment SCANNED
--- NOTE | 2021-11-03 12:17 | PCM.DC ---
Discharge Instructions Diet Discharge Diet: Low fat / Low cholesterol Activity Discharge Activity: Return to Normal Activity Dressing / Incision Call your doctor if you observe: Fever of 101 or Higher, Shortness of breath, Dizziness, Fainting spells, Swelling in the ankles, Chest pain and Increased palpitations (irregular heartbeat) Follow Up Care Test Results: Test results from this visit will be discussed in further detail at your follow-up appointment, if applicable. Discharge Plan Admission Admit Date/Time: 11/02/21 18:29 Attending Provider: Griffin Marie Primary Care Provider: Matt Peace Discharge Orders/Prescriptions Prescriptions: New prednisone 10 mg tablet 10 mg PO DAILY Qty: 40 RF: 0 Continued gabapentin [Neurontin] 300 MG capsule 600 mg PO QHS RF: 0 albuterol sulfate [Ventolin HFA] 108 HFA aerosol inhaler 1 - 2 puff inhalation Q4H PRN (Reason: Sob &/Or Wheezing) RF: 0 albuterol sulfate 2.5 MG/3 ML solution for nebulization 2.5 mg INHALATION Q2H PRN PRN (Reason: SOB &/OR WHEEZING) Qty: 1 RF: 0 Trelegy Ellipta 1 EACH blister with device 1 puff IH DAILY RF: 0 atorvastatin 20 MG tablet 20 mg PO QHS RF: 0 carvedilol 3.125 MG tablet 3.125 mg PO BID RF: 0 aspirin 81 MG tablet,chewable 81 mg PO DAILY RF: 0 pediatric multivitamin 1 EACH tablet,chewable 1 each PO DAILY RF: 0 hydroxyzine HCl 25 mg tablet 25 mg PO QHS RF: 0 Ensure Enlive 120 ML liquid 120 ml PO 4X/DAY RF: 0 Referrals / Follow Up: Matt Peace MD [Primary Care Provider] - Within 1 Week Disposition Disposition (needs filled in before D/C Order can be placed): Home, Self Care
--- NOTE | 2021-11-03 12:21 | DS.PCM_ITS ---
Providers Date of Admission: 11/02/21 Primary Care Physician: Dr. Matt Peace MD Reason For Visit: COPD EXACERBATION Diagnosis Discharge Diagnosis (1) COPD with acute exacerbation: Status: Chronic Code(s): J44.1 - Chronic obstructive pulmonary disease with (acute) exacerbation Medications at Discharge Home Medications albuterol sulfate [Ventolin HFA] 1 - 2 puff INHALATION Q4H PRN 11/26/17 gabapentin [Neurontin] 600 mg PO QHS 11/26/17 albuterol sulfate 2.5 mg INHALATION Q2H PRN PRN #1 box 11/28/17 Trelegy Ellipta 1 puff IH DAILY 10/16/18 atorvastatin 20 mg PO QHS 06/27/20 carvedilol 3.125 mg PO BID 06/27/20 aspirin 81 mg PO DAILY 01/11/21 pediatric multivitamin 1 each PO DAILY 02/14/21 hydroxyzine HCl 25 mg PO QHS 06/29/21 Ensure Enlive 120 ml PO 4X/DAY 07/25/21 prednisone 10 mg PO DAILY #40 tab 11/03/21 Hospital Course Operations None Procedures None Summary of Care Provided Minutes Spent on Discharge: 35 Hospital Course: Per HPI: FLORY ALBERTO, is a 76 F who presents worsening shortness of breath. Patient is on chronic oxygen 4 L. Patient has just been progressively short of breath with exertion such as going up stairs. Received methylprednisolone as well as bronchodilators in the emergency room. Still feels short of breath and not at her baseline at this time. She has not been around anyone with COVID-19 nor has she been vaccinated for COVID-19. She states that her reason she is not vaccinated is she had some appointments that were canceled. I reminded her that Covid vaccines been around for the past year. She refuted that that statement. Hospital Course: 1. Acute COPD exacerbation?76-year-old female with a history of COPD as well as hypertension presents to the hospital with dyspnea on exertion and increased shortness of breath. She does use 4 L of oxygen at home and she is currently requiring 4 L of oxygen at rest and with ambulation. She does feel better today she has a few wheezes on exam and so I discussed with her the possibility of di scharge today and she expressed understanding of risks and benefits of going home and would like to go home today. We will continue with a slow prednisone taper on discharge and recommend that she follow-up with her PCP in 3 to 5 days. I also encouraged her that, frankly, if she got COVID she would likely from it and that she should get vaccinated as soon as she possibly can it does not require an appointment and she can walk in the most pharmacies to receive the vaccine. 2. Hypertension, hyperlipidemia are chronic medical conditions which complicate her care. Her home medications were continued where appropriate Physical Exam Const alert, oriented x3 and no apparent distress General Appearance: cooperative HEENT normocephalic and moist oral mucous membranes Eyes PERRL, EOMs intact bilaterally and conjunctivae normal Neck supple and no JVD Resp normal respiratory effort, no retractions and no use of accessory muscles Auscultation: wheezes and diminished lung sounds; Negative for crackles, rales or rhonchi Cardio regular rate, regular rhythm, S1 normal heart sound, S2 normal heart sound and no murmurs GI soft to palpation, non-tender and non-distended; Negative for hepatosplenomegaly Extremity no clubbing, cyanosis or edema Skin no rashes or lesions noted Neuro no focal motor deficits and no sensory deficits noted Psych affect normal Appearance: appropriate Weight / BMI Weight Weight: 90 lb Body Mass Index (BMI) 15.0 ABG / Lab / Microbiology Data Result Diagrams: 11/03/21 07:04 11/03/21 07:04 Laboratory: Laboratory Results - last 24 hr 11/02/21 13:45: WBC 6.2, RBC 2.92 L, Hgb 8.5 L, Hct 29.1 L, MCV 99.7 H, MCH 29.1, MCHC 29.2 L, RDW Std Deviation 47.2 H, RDW Coeff of Ashu 13.0, Plt Count 182, MPV 10.3, Immature Gran % (Auto) 0.300, Neut % (Auto) 66.1, Lymph % (Auto) 11.4 L, [place] % (Auto) 7.7, Eos % (Auto) 14.0 H, Baso % (Auto) 0.5, Absolute Neuts (auto) 4.1, Absolute Lymphs (auto) 0.71 L, Nucleated RBC % 0 11/02/21 13:45: Troponin I High Sens 10 11/02/21 13:45: Sodium 135 L, Potassium 4.4, Chloride 92 L, Carbon Dioxide 40.0 H, Anion Gap 3 L, BUN 14, Creatinine 0.77, Estim Creat Clear Calc 33.00, Est GFR (MDRD) Af Amer 93, Est GFR (MDRD) Non-Af 77, BUN/Creatinine Ratio 18.1, Glucose 122 H, Calcium 8.5, Total Bilirubin 0.50, AST 14 L, ALT 12 L, Alkaline Phosphatase 140 H, Total Protein 5.7 L, Albumin 2.9 L, Globulin 2.8, A lbumin/Globulin Ratio 1.0 11/02/21 14:05: D-Dimer Quant (PE/DVT) 0.61 H* 11/03/21 07:04: WBC 4.1 L, RBC 3.21 L, Hgb 9.3 L, Hct 30.4 L, MCV 94.7 D, MCH 29.0, MCHC 30.6 L, RDW Std Deviation 44.8 H, RDW Coeff of Ashu 13.0, Plt Count 210, MPV 10.4, Immature Gran % (Auto) 0.500, Neut % (Auto) 87.6 H, Lymph % (Auto) 9.4 L, [place] % (Auto) 2.5, Eos % (Auto) 0.0, Baso % (Auto) 0.0, Absolute Neuts (auto) 3.6, Absolute Lymphs (auto) 0.38 L, Nucleated RBC % 0, Differential Comment SCANNED 11/03/21 07:04: Sodium 135 L, Potassium 4.1, Chloride 92 L, Carbon Dioxide 38.0 H, Anion Gap 5, BUN 18, Creatinine 0.90, Estim Creat Clear Calc 34.81, Est GFR (MDRD) Af Amer 79, Est GFR (MDRD) Non-Af 65, BUN/Creatinine Ratio 20.1 H, Glucose 129 H, Calcium 9.1, Total Bilirubin 0.60, AST 16, ALT 12 L, Alkaline Phosphatase 147 H, Total Protein 6.2 L, Albumin 3.0 L, Globulin 3.2, Albumin/Margaret bulin Ratio 0.9 Microbiology: Microbiology 11/02/21 13:30 Nasal Secretion SARS-CoV-2 Antigen (Rapid) - Final Radiography Diagnostic Testing: Radiology Impression Chest X-Ray 11/02/21 14:15 IMPRESSION: Hyperinflation. Stable linear scar or atelectasis at the left lung base. Electronically Signed: Valentin Flores MD at 14:41 EST , Service support , D/C Instructions Discharge Diet: Low fat / Low cholesterol Call your doctor if you observe: Fever of 101 or Higher, Shortness of breath, Dizziness, Fainting spells, Swelling in the ankles, Chest pain and Increased palpitations (irregular heartbeat) Meaningful Use Info Meaningful Use Diagnoses (Choose all that apply): None applicable Discharge Plan Admission Admit Date/Time: 11/02/21 18:29 Attending Provider: Griffin Marie Primary Care Provider: Matt Peace Discharge Orders/Prescriptions Prescriptions: New prednisone 10 mg tablet 10 mg PO DAILY Qty: 40 RF: 0 Continued gabapentin [Neurontin] 300 MG capsule 600 mg PO QHS RF: 0 albuterol sulfate [Ventolin HFA] 108 HFA aerosol inhaler 1 - 2 puff inhalation Q4H PRN (Reason: Sob &/Or Wheezing) RF: 0 albuterol sulfate 2.5 MG/3 ML solution for nebulization 2.5 mg INHALATION Q2H PRN PRN (Reason: SOB &/OR WHEEZING) Qty: 1 RF: 0 Trelegy Ellipta 1 EACH blister with device 1 puff IH DAILY RF: 0 atorvastatin 20 MG tablet 20 mg PO QHS RF: 0 carvedilol 3.125 MG tablet 3.125 mg PO BID RF: 0 aspirin 81 MG tablet,chewable 81 mg PO DAILY RF: 0 pediatric multivitamin 1 EACH tablet,chewable 1 each PO DAILY RF: 0 hydroxyzine HCl 25 mg tablet 25 mg PO QHS RF: 0 Ensure Enlive 120 ML liquid 120 ml PO 4X/DAY RF: 0 Referrals / Follow Up: Matt Peace MD [Primary Care Provider] - Within 1 Week Disposition Disposition (needs filled in before D/C Order can be placed): Home, Self Care Charges/Coding Visit Charges Inpatient E&M: 77196 Disch Hosp
--- NOTE | 2021-11-03 13:15 | CASEMGMT ---
RN WILLIS BOOT MAKER CM to room to meet with patient for initial transition planning/care coordination assessment. BHUMI PEDRO introduced self and role at [facility]. Pt voices understanding and consents to assessment at this time. Pt resting in bed in no distress at this time. Pt is A/O at this time and answers all questions appropriately. Care providers, pharmacy, and demographics verified/updated at this time. PCP: Dr Peace Specialists: Dr Soto-pulmonology. Pt also sees a laboratory courier @ [facility]--she thinks his name is Dr Asher, but she is not sure Pt is active w/Palliative Care @ [facility]. TC to Clotilde and she was notified of pt's admission to [facility] Insurance: [facility] [employer] Prescription Benefit: Yes Living Will/HPOA: Has both LW and HPOA, who is her son, Jose Bhandari (Chad). Copies of both are on e-chart @ [facility] LNOK: Son/Jose KUHN Living Arrangements: Lives w/Kavon neff in a split-level home. 6-7 steps to bedroom and bathroom. Pt states Kavon does not work and he helps to take care of her. Pt independent w/ADL's and able to bath/dress self but Kavon will stand outside the bathroom door in case she needs assistance. She has been sponge-bathing. He also stands w/her when going up stairs to assist as needed. Kavon also manages pt's medications and appts. Transportation: [facility] DME: has the following DME: shower chair, rollator, grab bars, nebulizer, pulse ox, and BP monitor. Has O2 thru [employer] and states has been using 4 l/m @ rest and son will turn O2 up when she is ambulating. Pt has concentrator and portable tanks. Son can bring in portable O2 tank @ d/c. Per Courtney @ [employer], current O2 orders are for 2 l/m @ rest and 7 l/m w/exertion. Pt made aware and states, Oh, I've been using 4 @ rest. Pt states no need for further DME at this time. HHC: Pt was set up w/[facility] and [facility] referral was also made during last hospitilization in Aug,. Per Omar @ [facility] pt adamantly declined [facility] when they f/u w/her. Also, [facility] Dil[facility], pt declined them as well. BHUMI PEDRO inquired if pt interested in HHC or [facility] at this time. She declines both, stating she does not feel she needs them. BHUMI PEDRO informed her to f/u with her PCP if she decides later she is interested. She voices understanding. Pt wishes to return home and states has no concerns with going home at time of discharge. CM to follow for any increase in home oxygen needs and any further discharge planning/needs. Pt voices no further concerns/needs at this time. Advised pt to ask for CM if any further questions/concerns/needs arise. Voices understanding. PLAN: Home Yadi DELEON RN, CM
--- NOTE | 2021-11-03 15:51 | CASEMGMT ---
BHUMI PEDRO NOTE: Pt discharging home today. Pt has Home O2 @ 2l/m @ rest and 7 l/m w/exertion. Pt requiring 3 l/m @ rest now, instead of 2l/m. Pt made aware. Updated O2 Script obtained from Dr Marie and faxed to [facility]. Yadi JOSEPHN BHUMI CM
== END 2021-11-03 15:52 | disposition home or self-care (01) | DRG 191 ==
LOC: ED 13:16 → MS3 11-03 07:09
PROVIDERS: Emergency Provider Student in an Organized Health Care Education/Training Program; PCP Family Medicine; Visit Provider Family Medicine
DX: J44.1 Chronic obstructive pulmonary disease with (acute) exacerbation (principal); J96.11 Chronic respiratory failure with hypoxia; Z99.81 Dependence on supplemental oxygen; I25.10 Atherosclerotic heart disease of native coronary artery without angina pectoris; I10 Essential (primary) hypertension; E78.5 Hyperlipidemia, unspecified; F17.210 Nicotine dependence, cigarettes, uncomplicated; Z20.822 Contact with and (suspected) exposure to COVID-19; Z79.82 Long term (current) use of aspirin; Z79.52 Long term (current) use of systemic steroids; Z79.899 Other long term (current) drug therapy
CPT/HCPCS: 36415; 71045; 80053; 84484; 85025; 85379; 87426; 93005; 94640; 94762; 97162; 97166; 97802; 99285; A4216

== ENCOUNTER 2021-11-09 22:00 | Inpatient (IN) | payer MEDICARE, OTHER, SELFPAY ==
[2021-11-09 22:05] VITALS: PULSE 92; RESP 25; TEMP 37.1; O2SAT 93; BMI 13.8
[2021-11-09 22:12] VITALS: BP 142/106
--- NOTE | 2021-11-09 22:12 | EKG12_ITS ---
Test Reason : DYSRHYTHMIA Blood Pressure : / mmHG Vent. Rate : 083 BPM Atrial Rate : 083 BPM P-R Int : 112 ms QRS Dur : 064 ms QT Int : 336 ms P-R-T Axes : 077 049 079 degrees QTc Int : 394 ms Normal sinus rhythm Normal ECG Confirmed by CASEY CEJA, RICARDO ([id number]), design editor CATHERINE CARBAJAL ([id number]) on 11/10/2021 1:37:04 PM Referred By: JOSE Confirmed By:ROOPA PEÑA MD
--- NOTE | 2021-11-09 22:13 | EDS_ITS ---
HPI History of Present Illness Chief Complaint: Shortness of Breath Narrative Narrative: Patient with past medical history of COPD presents with increasing shortness of breath today. She states she was seen in the emergency department a few days ago and given 60 mg of prednisone to take daily. Difficult for her to take this. She still smokes cigarettes occasionally, her last 1 being a few days ago. She presents with increasing shortness of breath. She denies any fevers or chills. No new cough with sputum production. No other symptoms. She states that she usually wears 4 L of nasal cannula oxygen at all times. Per EMS, upon arrival she was on 6 L and satting in the 80s. She denies any chest pain or tightness. No nausea or vomiting. No diaphoresis. However, she does state that she wants to be checked for urinary tract infection because she is having problems. 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 Neurogenic bladder Neurogenic bowel Nonobstructive atherosclerosis of coronary artery (Unknown) On home oxygen therapy Osteoporosis Protein calorie malnutrition Smoker Tobacco abuse Home Medications albuterol sulfate [Ventolin HFA] 1 - 2 puff INHALATION Q4H PRN 11/26/17 [History Last Taken 02/14/21] gabapentin [Neurontin] 600 mg PO QHS 11/26/17 [History Last Taken 02/13/21] albuterol sulfate 2.5 mg INHALATION Q2H PRN PRN #1 box 11/28/17 [Rx Last Taken 02/14/21] Trelegy Ellipta 1 puff IH DAILY 10/16/18 [History Last Taken 02/14/21] atorvastatin 20 mg PO QHS 06/27/20 [History Last Taken 02/13/21] carvedilol 3.125 mg PO BID 06/27/20 [History Last Taken 02/14/21] aspirin 81 mg PO DAILY 01/11/21 [History Last Taken 02/14/21] pediatric multivitamin 1 each PO DAILY 02/14/21 [History Last Taken 02/14/21] hydroxyzine HCl 25 mg PO QHS 06/29/21 [History Last Taken Unknown] Ensure Enlive 120 ml PO 4X/DAY 07/25/21 [History Last Taken Unknown] prednisone 10 mg PO DAILY #40 tab 11/03/21 [Rx Last Taken Unknown] Allergy/AdvReac Type Severity Reaction Status Date / Time Sulfa (Sulfonamide Allergy FACE GETS Verified 11/09/21 22:11 Antibiotics) RED AND ITCHY codeine AdvReac Nausea Verified 11/09/21 22:11 Family History Father Kidney disease Sister Breast cancer Sister Cancer lung Surgical History History of back surgery History of breast lump removal History of cholecystectomy History of hysterectomy History of left heart catheterization (LHC) (01/17/21) Social History household members: family Smoking Status: Current some day smoker tobacco type: cigarettes second hand exposure: No alcohol intake: never substance use type: does not use ROS ROS ED ROS Narrative Constitutional: No fever, no chills. HEENT: No sore throat. No neck pain. No loss of vision. No rhinorrhea. Cardiovascular: No chest pain. No palpitations. No pedal edema. Respiratory: No cough, increasing shortness of breath. Abdominal: No abdominal pain. No nausea. No vomiting. Genitourinary: Positive dysuria. No hematuria. Musculoskeletal: No myalgias. No arthralgias. Neurologic: No headaches. No dizziness. No lightheadedness. Skin: No rash. No change in color. Psychiatric: No depression. No anxiety. EXAM Physical Exam Narrative Exam Narrative: Afebrile. Vital signs noted. HEENT: Normocephalic. Atraumatic. PERRL, EOMI. Neck soft and supple. No point tenderness or step off. Cardiovascular: Regular rate and rhythm. No murmurs, rubs, or gallops appreciated. Respiratory: Positive tachypnea. Lungs clear to auscultation bilaterally. Diminished breath sounds bilateral bases. Gastrointestinal: Abdomen soft, nontender, with normoactive bowel sounds. No rebound or guarding. Neurological: Awake. Alert. Nonfocal, nonlateralizing. Skin: No rash. Normal color. No pallor. Musculoskeletal: No pedal edema. Full range of motion extremities. Const Vital Signs: 11/09/21 22:05 11/09/21 22:11 11/09/21 22:12 Temperature 98.7 F Temperature Source Temporal Pulse Rate 92 Respiratory Rate 25 H Respiratory Effort Short of Breath Labored Respiratory Pattern Tachypnea Blood Pressure 142/106 H Blood Pressure Mean 118 Pulse Ox 93 Oxygen Delivery Method Non-Rebreather Oxygen Flow Rate (L/min) 15 11/09/21 22:57 11/09/21 23:00 11/09/21 23:34 Temperature Temperature Source Pulse Rate 86 84 Respiratory Rate 26 H 24 H Respiratory Effort Respiratory Pattern Tachypnea Blood Pressure 157/70 H Blood Pressure Mean 99 Pulse Ox 98 94 Oxygen Delivery Method Non-Rebreather Nasal Cannula Oxygen Flow Rate (L/min) 6 11/09/21 23:55 11/10/21 00:00 Temperature Temperature Source Pulse Rate 84 Respiratory Rate 24 H Respiratory Effort Respiratory Pattern Blood Pressure Blood Pressure Mean Pulse Ox 92 94 Oxygen Delivery Method Nasal Cannula Nasal Cannula Oxygen Flow Rate (L/min) 4 4 MDM MDM MDM Narrative Medical decision making narrative: Her pulse ox was low. She was placed on a nonrebreather. She will be given an albuterol/ipratropium aerosolized treatment and Solu-Medrol 125 mg intravenously. Comprehensive work-up was pursued. She was swabbed for COVID and chest x-ray was obtained. CBC is normal with a white count of 8.7. Hemoglobin stable at 8.9. Platelet count normal at 260. Sodium is low at 130 with a chloride of 89. Creatinine slightly elevated at 1.03. Glucose appropriately elevated at 103. Calcium low at 8.2. Troponin negative at 16. EKG demonstrates normal sinus rhythm at 83 bpm without ectopy or acute ST changes. Urinalysis is negative for infection with negative nitrites and only 25 leukocyte esterase. Chest x-ray shows right lower lobe opacities consistent with atypical infection. She was weaned down from her nonrebreather to 6 L of nasal cannula oxygen, intermittently down to 4. She is requiring more oxygen, and will possibly need high flow oxygen. She had already been given Solu-Medrol as a steroid for suspected COPD exacerbation, however her COVID swab is positive. She states that she did not receive the vaccination. She thinks she may have gotten it from her son who lives with her who goes out to the grocery store. Regardless, given her respiratory failure, acute on chronic with hypoxia, and her COVID-19 pneumonia, patient was discussed with Dr. Leavitt for admission to the PCU. She is in stable condition. Lab Data Attestation: I reviewed the patient's lab results. Labs: Laboratory Results - last 24 hr 11/09/21 11/09/21 11/09/21 22:35 22:35 23:24 WBC 8.7 RBC 3.04 L Hgb 8.9 L Hct 28.7 L MCV 94.4 MCH 29.3 MCHC 31.0 L RDW Std Deviation 45.9 H RDW Coeff of Ashu 13.3 Plt Count 260 MPV 10.6 Immature Gran % (Auto) 0.700 Neut % (Auto) 86.8 H Lymph % (Auto) 3.3 L [place] % (Auto) 9.2 Eos % (Auto) 0.0 Baso % (Auto) 0.0 Absolute Neuts (auto) 7.6 Absolute Lymphs (auto) 0.29 L Nucleated RBC % 0 Differential Comment Sodium 130 L Potassium 4.0 Chloride 89 L Carbon Dioxide 36.0 H Anion Gap 5 BUN 27 H Creatinine 1.03 H Estim Creat Clear Calc 28.05 Est GFR (MDRD) Af Amer 67 Est GFR (MDRD) Non-Af 56 L BUN/Creatinine Ratio 26.2 H Glucose 103 Calcium 8.2 L Troponin I High Sens 16 Urine Color Yellow Urine Clarity Clear Urine pH 6.0 Ur Specific [place] 1.015 Urine Protein 30 H Urine Glucose (UA) Normal Urine Ketones Negative Urine Occult Blood 25 H Urine Nitrite Negative Urine Bilirubin Negative Urine Urobilinogen Normal Ur Leukocyte Esterase 25 H Radiography Diagnostic Testing: Clinical Impression(s) from Imaging Studies Chest X-Ray 11/09/21 22:30 IMPRESSION: 1. Right lower lobe reticular opacities suggesting tree-in-bud opacities as can be seen with atypical infection. 2. At least moderate emphysematous changes. Electronically Signed: Jose Jansen DO at 23:18 EST Tel , Service support , Discharge Plan Dx/Rx/DC Orders Clinical Impression: Pneumonia due to 2019-nCoV, Acute on chronic respiratory failure with hypoxia Disposition Disposition: Acute Care Hospital [facility]
[2021-11-09] MEDS: MethylPREDNISolone 125 MG/2 ML Vial IV (22:26)
--- NOTE | 2021-11-09 22:30 | RAD_ITS ---
INDICATION: Shortness of Breath EXAMINATION/TECHNIQUE: X-RAY - XR Chest 1 View COMPARISON: None. FINDINGS: LINES/DEVICES: Chest x-ray 10/13/2021 and 11/02/2021. LUNGS: Increased lung volumes and upper lobes likely representing emphysema. New right lower lobe reticular opacities, tree-in-bud type appearance, suggesting infectious etiology, potential atypical infection. Lungs are otherwise clear. No nodule or mass. No pleural effusion or pneumothorax. MEDIASTINUM AND CARDIOVASCULAR STRUCTURES: Normal size and contour of the cardiomediastinal silhouette. No evidence of pulmonary vascular congestion. Prominent intimal calcifications thoracic aortic arch. BONES AND SOFT TISSUES: No abnormality within limits of the exam. Surgical clips right upper quadrant. RAD/Chest 1 View (Portable) IMPRESSION: 1. Right lower lobe reticular opacities suggesting tree-in-bud opacities as can be seen with atypical infection. 2. At least moderate emphysematous changes. Electronically Signed: Jose Jansen DO at 23:18 EST Tel , Service support ,
[2021-11-09 22:39] LABS: Absolute Lymphocyte Count 0.29 X10^3/uL (0.83-4.51); Absolute Neutrophil Count 7.6 X10^3/uL (2.0-7.7); Hematocrit 28.7 % (37-47); Hemoglobin 8.9 g/dL (12.0-15.0); Lymphocyte # 0.29 X10^3/ul (0.83-4.51); Lymphocyte % 3.3 % (19-41); Mean Corpuscular Hgb 29.3 pg (27.0-32.0); Mean Corpuscular Volume 94.4 fL (81-99); Mean Platelet Vol. 10.6 fl (6.2-12.0); Monocyte% 9.2 % (0-10); NRBC Flagged by Analyzer 0 % (0-5); Neutrophil # 7.57 X10^3/uL (2.7-7.7); Neutrophil % 86.8 % (47-70); POSITIVE DIFFERENTIAL YES; Platelet Count 260 K/mm3 (150-450); RBC Distribution Width CV 13.3 % (11.6-14.6); RBC Distribution Width SD 45.9 fl (35.1-43.9); Red Blood Count 3.04 M/mm3 (4.2-5.4); White Blood Count 8.7 K/mm3 (4.4-11.0)
[2021-11-09 22:41] LABS: Differential Indicated SCAN CRITERIA MET
[2021-11-09 22:57] VITALS: PULSE 86; RESP 26
[2021-11-09] MEDS: Ipratropium/Albuterol Sulfate 3 ML AMPUL.NEB INHALATION (22:57)
[2021-11-09 23:00] VITALS: BP 157/70; PULSE 84; RESP 24; O2SAT 98
[2021-11-09 23:03] LABS: Anion Gap 5 (5-15); BUN 27 mg/dL (7-18); BUN/Creat Ratio 26.2 RATIO (10-20); Calcium,Total 8.2 mg/dL (8.5-10.1); Chloride 89 mmol/L (98-107); Creatinine, Serum 1.03 mg/dL (0.55-1.02); EST Glomerular Filtration Rate 56 mL/min (>60); Est Glom Filt Rate - Afr Amer 67 mL/min (>60); Estimated Creatinine Clearance 28.05 ml/min; Glucose 103 mg/dL (74-106); Sodium Level 130 mmol/L (136-145); Troponin-I HS 16 pg/mL (3.0-54.0)
[2021-11-09 23:29] LABS: Mucous, Urine 0 SEEN /hpf (<or=2+)
[2021-11-09 23:34] VITALS: O2SAT 94
--- NOTE | 2021-11-09 23:54 | PCM.HP.STD ---
HPI - General General Date of Admission: 11/09/21 Date of Service: 11/09/21 Chief Complaint: Dyspnea, cough, worsening. HPI Narrative The patient is a 76 y/o F w/ PMHx: Chronic anemia, Chronic Hypoxic Respiratory Failure w/ COPD (4L NC), Severe Protein-Calorie malnutrition, HTN, HLD, Nonobstructive CAD, Hx GI bleed prior, Tobacco use, Hx neurogenic bowel and bladder who presents to the [facility] ED on 11/09/21 with history of recent ED evaluation 11/03/2021 with dyspnea and wheezing at that time discharged on steroid taper with COPD exacerbation at that time which improved who now represents with severe worsening shortness of breath on day of presentation, reported wheezing possibly non-compliant with taking her prednisone therapy with no fevers or chills, ongoing cough without marked sputum production mild headache and chills prompting eventual ED reevaluation. Upon EMS arrival patient was increased from her baseline 4 L nasal cannula up to 6 L and was saturating in the 80s. Patient has not been vaccinated against COVID-19 and reports that this was because she had called several times and when it was unable to receive the vaccine at the place that she tried. Work-up in the ED included T98.6, heart rate 92, BP 142/106, respiratory rate 25, 93% on a nonrebreather at 15 L, CBC with WC 8.7, hemoglobin 8.9, platelet 260 with lymphopenia, BMP with sodium 130, chloride 89, carbon oxide 26, BUN/creatinine 27/1.03 with creatinine clearance 28.05, high-sensitivity cardiac troponin 16, chest x-ray with right lower lobe opacities consistent with atypical infection and moderate emphysematous changes, rapid COVID antigen positive, EKG with sinus rhythm with no acute evidence of ischemia. In the ED patient ministered DuoNeb therapy as well as Solu-Medrol 125 mg IV x1. 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 Neurogenic bladder Neurogenic bowel Nonobstructive atherosclerosis of coronary artery (Unknown) On home oxygen therapy Osteoporosis Protein calorie malnutrition Smoker Tobacco abuse Home Medications albuterol sulfate [Ventolin HFA] 1 - 2 puff INHALATION Q4H PRN 11/26/17 [History Last Taken 02/14/21] gabapentin [Neurontin] 600 mg PO QHS 11/26/17 [History Last Taken 02/13/21] albuterol sulfate 2.5 mg INHALATION Q2H PRN PRN #1 box 11/28/17 [Rx Last Taken 02/14/21] Trelegy Ellipta 1 puff IH DAILY 10/16/18 [History Last Taken 02/14/21] atorvastatin 20 mg PO QHS 06/27/20 [History Last Taken 02/13/21] carvedilol 3.125 mg PO BID 06/27/20 [History Last Taken 02/14/21] aspirin 81 mg PO DAILY 01/11/21 [History Last Taken 02/14/21] pediatric multivitamin 1 each PO DAILY 02/14/21 [History Last Taken 02/14/21] hydroxyzine HCl 25 mg PO QHS 06/29/21 [History Last Taken Unknown] Ensure Enlive 120 ml PO 4X/DAY 07/25/21 [History Last Taken Unknown] prednisone 10 mg PO DAILY #40 tab 11/03/21 [Rx Last Taken Unknown] Allergy/AdvReac Type Severity Reaction Status Date / Time Sulfa (Sulfonamide Allergy FACE GETS Verified 11/09/21 22:11 Antibiotics) RED AND ITCHY codeine AdvReac Nausea Verified 11/09/21 22:11 Family History Father Kidney disease Sister Breast cancer Sister Cancer lung other (Denies any marked maternal family history including HD, DM, CA.) Surgical History History of back surgery History of breast lump removal History of cholecystectomy History of hysterectomy History of left heart catheterization (LHC) (01/17/21) Social History household members: family Smoking Status: Current some day smoker tobacco type: cigarettes second hand exposure: No alcohol intake: never substance use type: does not use ROS ROS Narrative Admission Review of Systems: CONSTITUTIONAL: No weight loss, fever, + chills, weakness or fatigue. HEENT: + Headache. Eyes: No visual loss, blurred vision, double vision or yellow sclerae. Ears, Nose, Throat: No hearing loss, sneezing. SKIN: No rash or itching, lesions, wounds. CARDIOVASCULAR: No chest pain, chest pressure or chest discomfort, palpitations, edema, orthopnea, syncopal events. RESPIRATORY: + shortness of breath, cough, No marked sputum, wheezing, hemoptysis. GASTROINTESTINAL: + anorexia, No nausea, vomiting, diarrhea, abdominal pain, melena, BRBPR. GENITOURINARY: + Hx neurogenic bladder, chronic frequency, No dysuria, urgency. NEUROLOGICAL: + headache, No dizziness, syncope, paralysis, ataxia, numbness or tingling in the extremities, focal weakness, change in bowel or bladder control, seizure. MUSCULOSKELETAL: + muscle, back pain, joint pain or stiffness. HEMATOLOGIC: + anemia, bleeding or bruising. LYMPHATICS: No enlarged nodes. No history of splenectomy. PSYCHIATRIC: No history of depression or anxiety. ENDOCRINOLOGIC: No reports of sweating, cold or heat intolerance. No polyuria or polydipsia. ALLERGIES: No history of asthma, hives, eczema or rhinitis. Vital Signs Vital Signs Vital Signs: 11/09/21 22:05 11/09/21 22:11 11/09/21 22:12 Temperature 98.7 F Temperature Source Temporal Pulse Rate 92 Respiratory Rate 25 H Respiratory Effort Short of Breath Labored Respiratory Pattern Tachypnea Blood Pressure 142/106 H Blood Pressure Mean 118 Pulse Ox 93 Oxygen Delivery Method Non-Rebreather Oxygen Flow Rate (L/min) 15 11/09/21 22:57 11/09/21 23:00 11/09/21 23:34 Temperature Temperature Source Pulse Rate 86 84 Respiratory Rate 26 H 24 H Respiratory Effort Respiratory Pattern Tachypnea Blood Pressure 157/70 H Blood Pressure Mean 99 Pulse Ox 98 94 Oxygen Delivery Method Non-Rebreather Nasal Cannula Oxygen Flow Rate (L/min) 6 Weight Weight: 83 lb Body Mass Index (BMI) 13.8 Physical Exam Narrative Physical Examination: General: Awake, alert, oriented x 3 and cooperative, seated upright in the ED bed, fatigued and ill-appearing, mildly increased respiratory rate. Skin: Normal color, normal turgor, no icterus, no cyanosis except occasional staged ecchymoses. HEENT: AT/NC, EOMI, PERRLA, moderately dry MM, no carotid bruits or JVD noted. Lungs: Diffusely diminished, greater bases, increased respiratory rate, accessory muscle usage improving, respiratory distress lessening, occasional expiratory wheezing, tight, no rhonchi or rales. Heart: Regular rate with regular rhythm; no gallop, rub audible. Abdomen: Soft, cachectic habitus, nontender to palpation, nondistended, hyperactive bowel sounds, no obvious HSM. Extremities: No cyanosis, clubbing, or edema. Neurological: Patient awake, alert, oriented as noted, cognitive function intact; pupils equally reactive to light and accommodation, cranial nerves II-XII grossly normal, moving all 4 extremities, no focal deficits, strength severely globally decreased secondary to acute presentation. Psychiatric: Affect appears fatigued, ill-appearing, respiratory distress is lessening, improved since initial ED presentation, no acute evidence of depressive or anxiety feelings. Results Lab / Micro Data Result Diagrams: 11/09/21 22:35 11/09/21 22:35 Labs: Laboratory Results - last 24 hr 11/09/21 22:35: WBC 8.7, RBC 3.04 L, Hgb 8.9 L, Hct 28.7 L, MCV 94.4, MCH 29.3, MCHC 31.0 L, RDW Std Deviation 45.9 H, RDW Coeff of Ashu 13.3, Plt Count 260, MPV 10.6, Immature Gran % (Auto) 0.700, Neut % (Auto) 86.8 H, Lymph % (Auto) 3.3 L, [place] % (Auto) 9.2, Eos % (Auto) 0.0, Baso % (Auto) 0.0, Absolute Neuts (auto) 7.6, Absolute Lymphs (auto) 0.29 L, Nucleated RBC % 0, Differential Comment 11/09/21 22:35: Sodium 130 L, Potassium 4.0, Chloride 89 L, Carbon Dioxide 36.0 H, Anion Gap 5, BUN 27 H, Creatinine 1.03 H, Estim Creat Clear Calc 28.05, Est GFR (MDRD) Af Amer 67, Est GFR (MDRD) Non-Af 56 L, BUN/Creatinine Ratio 26.2 H, Glucose 103, Calcium 8.2 L, Troponin I High Sens 16 Micro: Microbiology 11/09/21 22:35 Nasal Secretion SARS-CoV-2 Antigen (Rapid) - Final SARS-CoV-2 (COVID 19) Radiology Impression Chest X-Ray 11/09/21 22:30 IMPRESSION: 1. Right lower lobe reticular opacities suggesting tree-in-bud opacities as can be seen with atypical infection. 2. At least moderate emphysematous changes. Electronically Signed: Jose Justyna, DO at 23:18 EST Tel , Service support , Assessment & Plan Assessment/Plan (1) Pneumonia due to 2019-nCoV: (2) Acute on chronic respiratory failure with hypoxia: PLAN: The patient is a 76 y/o F w/ PMHx: Chronic anemia, Chronic Hypoxic Respiratory Failure w/ COPD (4L NC), Severe Protein-Calorie malnutrition, HTN, HLD, Nonobstructive CAD, Hx GI bleed prior, Tobacco use, Hx neurogenic bowel and bladder who presents to the [facility] ED on 11/09/21 with history of recent ED evaluation 11/03/2021 with dyspnea and wheezing at that time discharged on steroid taper with COPD exacerbation at that time which improved who now represents with severe worsening shortness of breath on day of presentation, reported wheezing possibly non-compliant with taking her prednisone therapy with no fevers or chills, ongoing cough without marked sputum production mild headache and chills prompting eventual ED reevaluation. #1. Acute Hypoxic Respiratory Failure on Chronic secondary to RLL PNA secondary to Acute Viral Syndrome, COVID-19 complicated by #10 underlying history: Will admit to the [facility] given improvement while in the ED, maintain on COVID precautions, will maintain on oxygen with wean as tolerated to room air, PRN albuterol, HOB, IS parameters w/ pending sputum cultures, respiratory viral panel and urine antigens, will obtain D-dimer, procalcitonin, CRP, CPK, Ferritin, LDH, trop and BNP, continue supportive care including q 2 hour turning including prone given no prone bed availability and judicious hydration, closely monitor for worsening status for ARDS and multiorgan failure, will initiate and continue IV decadron x 10 doses, patient creatinine clearance less than 30 therefore she is not remdesivir candidate. If respiratory status worsens and patient requires airvo or BIPAP transition will request infectious disease evaluation as well as pulmonary medicine for consideration initiation barcitinib if appropriate at that time. #2. Nonobstructive CAD: We will continue aspirin, statin, Coreg, not on ALFONZO inhibitor/ARB. #3. Hypertension: Continue home regimen including Coreg with hold parameters as needed, PRN hydralazine. #4. Hyperlipidemia: We will continue patient home statin therapy. #5. Severe protein calorie malnutrition: Evidenced by significantly reduced BMI, muscle and fat loss, nutrition consulted for input/recommendations. #6. History of prior GI bleed: We will place on PPI given steroid usage and ongoing usage of aspirin for underlying cardiac disease noted. #7. Tobacco Abuse: Encouraged cessation, inpatient consultation per RT, NR if desired. #8. History neurogenic bowel, bladder: We will monitor for any urinary retention, may straight cath if necessary, urinalysis pending #9. Chronic normocytic anemia: Admission hemoglobin 8.9, baseline more recently appears 8-9, stable, trend. #10. Chronic COPD with chronic hypoxic respiratory failure: Patient with significant worsening respiratory status, required nonrebreather upon initial presentation but improved to 6 L over time, will continue trilogy, as needed albuterol, encourage head of bed and I-S. We will continue treatment as noted above #1 #11. DVT prophylaxis: SCDs, Lovenox. #12. CODE status: Patient SAMSON is her son and living will is currently in place. Discussed CODE status at length including difference between FULL code, DNR-CCA and DNR-CC status. Following discussions about the differences in these status, requested Full Code, amenable to Airvo and BiPAP as well as intubation if necessary. Advanced Care Planning Face to Face Time: 16 minutes. Charges/Coding Visit Charges Inpatient E&M: 83480 Init Hosp L3 Procedures Hospitalists Procedures: 12711 Advncd Care Plan 30 Min
[2021-11-09 23:55] VITALS: O2SAT 92
[2021-11-09 23:55] LABS: Color, Urine Yellow (Yellow); Glucose, Dipstick Normal (Normal); Ketone-Dipstick Negative (Negative); Leukocyte Esterase-Dipstick 25 /ul (Negative); Nitrite-Dipstick Negative (Negative); Occult Blood-Urine 25 /ul (Negative); Protein-Dipstick 30 mg/dl (Negative); Specific Gravity, Urine 1.015 (1.002-1.030); Urine Bilirubin Dipstick Negative (Negative); Urine Clarity Clear (Clear); Urine Urobilinogen Normal (Normal)
[2021-11-10] VITALS (15 sets, daily range): BP systolic 97–157; BP diastolic 38–89; PULSE 51–87; RESP 16–24; TEMP 36.4–37.1; O2SAT 94–100; BMI 15.2
[2021-11-10 00:07] LABS: Red Blood Cells-Urine 0-5 SEEN /hpf (0-5); Squamous Epithelial Cells - UA 10-25 SEEN /hpf (5-10); Transitional Epithelial - Ur 0-5 SEEN /hpf (0-5); White Blood Cells 0-5 SEEN /hpf (0-5)
[2021-11-10 00:08] LABS: Bacteria 2+ /hpf (None Seen)
--- NOTE | 2021-11-10 01:01 | PCS.PANDOC ---
PANDEMIC DOCUMENTATION INITIATED: Date: 11/10/2020 Time: 010
[2021-11-10] MEDS: MELATONIN 3 MG TABLET PO (01:44)
[2021-11-10] MEDS: 0.9% Normal Saline 1,000 ML 100 ML IV (01:44)
[2021-11-10] MEDS: Acetaminophen 325 MG Tablet 650 MG PO (01:44)
[2021-11-10 02:06] LABS: AST(SGOT) 22 U/L (15-37); Alanine Aminotransfer ALT/SGPT 13 U/L (13-56); Alkaline Phosphatase 118 U/L (45-117); Bilirubin, Direct 0.13 mg/dL (0.00-0.30); Ferritin 67 ng/mL (8-252); LDH 207 U/L (84-246)
[2021-11-10 02:12] LABS: BNP,B-Type NATRIURETIC PEPTIDE 129.9 pg/mL (0-100)
[2021-11-10 02:12] LABS: Absolute Neutrophil Count 7.8 X10^3/uL (2.0-7.7); Hematocrit 27.7 % (37-47); Hemoglobin 8.7 g/dL (12.0-15.0); Lymphocyte % 1.2 % (19-41); Mean Corp Hgb Conc 31.4 g/dL (32-36); Mean Corpuscular Hgb 29.6 pg (27.0-32.0); Mean Corpuscular Volume 94.2 fL (81-99); Monocyte# 0.33 X10^3/uL; NRBC Flagged by Analyzer 0 % (0-5); Neutrophil % 93.8 % (47-70); POSITIVE DIFFERENTIAL YES; Platelet Count 240 K/mm3 (150-450); RBC Distribution Width CV 13.2 % (11.6-14.6); RBC Distribution Width SD 45.7 fl (35.1-43.9); Red Blood Count 2.94 M/mm3 (4.2-5.4); White Blood Count 8.3 K/mm3 (4.4-11.0)
[2021-11-10 02:13] LABS: Differential Indicated SCAN CRITERIA MET
[2021-11-10] MEDS: Gabapentin 300 MG Capsule 600 MG PO ×2 (02:17→20:58)
[2021-11-10] MEDS: guaiFENesin 10 ML UDC (200MG/10ML) 20 ML PO (02:17)
[2021-11-10] MEDS: hydrOXYzine PAM 25 MG Capsule PO ×2 (02:17→20:59)
[2021-11-10 02:30] LABS: AST(SGOT) 19 U/L (15-37); Alanine Aminotransfer ALT/SGPT 12 U/L (13-56); Albumin, Serum 2.8 g/dL (3.2-5.0); Alkaline Phosphatase 112 U/L (45-117); Anion Gap 5 (5-15); BUN 28 mg/dL (7-18); BUN/Creat Ratio 24.1 RATIO (10-20); Chloride 91 mmol/L (98-107); Creatinine, Serum 1.16 mg/dL (0.55-1.02); EST Glomerular Filtration Rate 48 mL/min (>60); Est Glom Filt Rate - Afr Amer 59 mL/min (>60); Estimated Creatinine Clearance 24.99 ml/min; Globulin 2.9 g/dL (2.2-4.2); Glucose 227 mg/dL (74-106); Potassium 3.9 mmol/L (3.5-5.1); Protein, Total 5.7 g/dL (6.4-8.2); Sodium Level 130 mmol/L (136-145)
[2021-11-10 02:31] LABS: D-Dimer Quantitative (DVT/PE) 1.32 FEU/ug/m (0.27-0.49)
--- NOTE | 2021-11-10 02:50 | VDLE_ITS ---
Reason For Study: Elevated D-dimer RIGHT LEFT GSV is normal. GSV is normal. CFV, FV, and PopV are compressible. CFV, FV, and PopV are compressible. T/P Trunk is compressible. T/P Trunk is compressible. PTV is compressible. PTV is compressible. RT PerV is compressible. LT PerV is compressible. Procedure This is a venous duplex using B-mode, color flow and spectral Doppler. Exam performed portable in patient room. The exam was abbreviated due to the COVID 19 protocol. A preliminary report was called and/or faxed to [facility] VL/Venous Duplex US - Kee Extrem Interpretation Summary No evidence for acute deep venous thrombosis bilateral lower extremities with p atent and compressible bilateral great saphenous veins. Abbreviated COVID-19 protocol uti lized Ordering Physician: Tata Leavitt Referring Physician: Matt Peace Performed By: Shira Fuentes RVT
[2021-11-10] MEDS: Ipratropium/Albuterol Sulfate 3 ML AMPUL.NEB INHALATION ×2 (07:16→21:12)
[2021-11-10] MEDS: Budesonide Respules 0.5 MG/2 ML AMPUL.NEB. INHALATION (07:16)
--- NOTE | 2021-11-10 07:40 | PN.HOSP_ITS ---
Subjective Subjective The patient is a 76 with underlying history significant for COPD who presented with increasing shortness of breath. Patient tested positive for COVID admitted to regular nursing floor for further management. Of note patient is not vaccinated against COVID-19 Objective Data Objective Data Vital Signs: Vital Signs Temp Pulse Resp BP Pulse Ox 97.8 F 51 L 18 98/56 L 100 11/10/21 05:10 11/10/21 07:17 11/10/21 07:17 11/10/21 05:10 11/10/21 07:17 Oxygen Flow Rate (L/min) 4 Oxygen Delivery Method Nasal Cannula Weight: 37.784 kg Body Mass Index (BMI) 15.2 Lab / Micro Data Result Diagrams: 11/10/21 02:05 11/10/21 02:05 Labs: Laboratory Results - last 24 hr 11/09/21 22:35: WBC 8.7, RBC 3.04 L, Hgb 8.9 L, Hct 28.7 L, MCV 94.4, MCH 29.3, MCHC 31.0 L, RDW Std Deviation 45.9 H, RDW Coeff of Ashu 13.3, Plt Count 260, MPV 10.6, Immature Gran % (Auto) 0.700, Neut % (Auto) 86.8 H, Lymph % (Auto) 3.3 L, [place] % (Auto) 9.2, Eos % (Auto) 0.0, Baso % (Auto) 0.0, Absolute Neuts (auto) 7.6, Absolute Lymphs (auto) 0.29 L, Nucleated RBC % 0, Differential Comment 11/09/21 22:35: Sodium 130 L, Potassium 4.0, Chloride 89 L, Carbon Dioxide 36.0 H, Anion Gap 5, BUN 27 H, Creatinine 1.03 H, Estim Creat Clear Calc 28.05, Est GFR (MDRD) Af Amer 67, Est GFR (MDRD) Non-Af 56 L, BUN/Creatinine Ratio 26.2 H, Glucose 103, Calcium 8.2 L, Troponin I High Sens 16 11/09/21 22:35: Ferritin 67, Total Bilirubin 0.40, Direct Bilirubin 0.13, AST 22, ALT 13, Alkaline Phosphatase 118 H, Lactate Dehydrogenase 207, C-React Prot Ext Range 100.00 H, Total Protein 6.0 L, Albumin 3.0 L, Globulin 3.0 11/09/21 22:35: B-Natriuretic Peptide 129.9 H 11/09/21 23:24: Urine Color Yellow, Urine Clarity Clear, Urine pH 6.0, Ur Spec ific [place] 1.015, Urine Protein 30 H, Urine Glucose (UA) Normal, Urine Ketones Negative, Urine Occult Blood 25 H, Urine Nitrite Negative, Urine Bilirubin Negative, Urine Urobilinogen Normal, Ur Leukocyte Esterase 25 H, Urine RBC 0-5 SEEN, Urine WBC 0-5 SEEN, Ur Squamous Epith Cells 10-25 SEEN, Ur Transition Epith Cell 0-5 SEEN, Urine Bacteria 2+, Urine Mucus 0 SEEN 11/10/21 02:05: D-Dimer Quant (PE/DVT) 1.32 H* 11/10/21 02:05: Procalcitonin 1.40 H 11/10/21 02:05: WBC 8.3, RBC 2.94 L, Hgb 8.7 L, Hct 27.7 L, MCV 94.2, MCH 29.6, MCHC 31.4 L, RDW Std Deviation 45.7 H, RDW Coeff of Ashu 13.2, Plt Count 240, MPV 10.0, Immature Gran % (Auto) 1.000 H, Neut % (Auto) 93.8 H, Lymph % (Auto) 1.2 L , [place] % (Auto) 4.0, Eos % (Auto) 0.0, Baso % (Auto) 0.0, Absolute Neuts (auto) 7.8 H, Absolute Lymphs (auto) 0.10 L, Nucleated RBC % 0 11/10/21 02:05: Sodium 130 L, Potassium 3.9, Chloride 91 L, Carbon Dioxide 34.0 H, Anion Gap 5, BUN 28 H, Creatinine 1.16 H, Estim Creat Clear Calc 24.99, Est GFR (MDRD) Af Amer 59 L, Est GFR (MDRD) Non-Af 48 L, BUN/Creatinine Ratio 24.1 H , Glucose 227 H, Calcium 8.0 L, Total Bilirubin 0.40, AST 19, ALT 12 L, Alkaline Phosphatase 112, Total Protein 5.7 L, Albumin 2.8 L, Globulin 2.9, Albumin/Globulin Ratio 1.0 Micro: Microbiology 11/09/21 23:24 Urine, Random Legionella Antigen - Final 11/09/21 23:24 Urine, Random Streptococcus pneumoniae Antigen (M - Final 11/09/21 22:35 Nasal Secretion SARS-CoV-2 Antigen (Rapid) - Final SARS-CoV-2 (COVID 19) Radiography Diagnostic Testing: Radiology Impression Chest X-Ray 11/09/21 22:30 IMPRESSION: 1. Right lower lobe reticular opacities suggesting tree-in-bud opacities as can be seen with atypical infection. 2. At least moderate emphysematous changes. Electronically Signed: Jose Jansen, DO at 23:18 EST Tel , Service support , Physical Exam Narrative GENERAL: Frail looking HEENT: Atraumatic; EYES; Anicteric, Normal Conjunctiva NECK; supple, normal thyroid, RESPIRATORY: Diminished to auscultation CARDIOVASCULAR: Regular S1 S2, GI: soft, normoactive bowel sounds, : No Renal angle tenderness; EXTREMITIES: No edema, no clubbing, MUSCULOSKELETAL: no muscle waisting NEURO: Awake; no lateralizing signs. SKIN: No Rash PSYCH; Flat affect Assessment & Plan Assessment/Plan (1) Pneumonia due to 2019-nCoV: (2) Acute on chronic respiratory failure with hypoxia: PLAN: The patient is a 76 with underlying history significant for COPD who presented with increasing shortness of breath. Patient tested positive for COVID admitted to regular nursing floor for further management. Of note patient is not vaccinated against COVID-19 1. Acute hypoxic respiratory failure ? Superimposed on chronic hypoxic respiratory failure secondary to COPD. Imaging studies obtained demonstrated right lower lobe reticular opacities suggesting tree-in-bud opacities. Patient tested positive for COVID admitted to regular nursing floor started on Decadron. Patient was deemed not a candidate for remdesivir due to low creatinine clearance. Also placed on supplemental oxygen titrated to keep saturation greater than 90 2. Chronic hypoxic respiratory failure ? Secondary to COPD patient is on baseline oxygen 3. Hypertension - Blood pressure controlled, home medications continued with dose adjustment as needed 4. Dyslipidemia ? Patient is on atorvastatin 20 mg p.o. nightly did continue 5. Tobacco dependence - Counseled on cessation, offered nicotine patch for tobacco cravings 6. Severe protein calorie malnutrition ? Secondary to patient underlying chronic disease as well as COVID 19. This is evidenced by patient decrease BMI muscle loss and decreased oral intake. Consult placed to dietitian for dietary recommendations 7. Anemia - Secondary to chronic disorder monitoring H&H and transfuse if patient becomes symptomatic or hemoglobin falls below 7 8. DVT prophylaxis ? ADAM Landeros Charges/Coding Visit Charges Inpatient E&M: 70704 Subs Hosp L3
[2021-11-10] MEDS: Enoxaparin 30 MG/0.3 ML Syringe SC (10:41)
[2021-11-10] MEDS: Aspirin 81 MG TAB.CHEW PO (10:42)
[2021-11-10] MEDS: Carvedilol 3.125 MG TABLET PO ×2 (10:43→20:59)
[2021-11-10] MEDS: guaiFENesin 1,200 MG Tablet 1200 MG PO ×2 (10:43→20:59)
[2021-11-10] MEDS: Multivitamins,Therapeutic Tablet 1 TABLET PO (10:43)
--- NOTE | 2021-11-10 15:18 | CASEMGMT ---
BHUMI PEDRO chart review: Patient was admitted 11/02/21-11/03/21 for COPD exacerbation. Patient was discharged to home with already established home oxygen, new prednisone taper, and to follow-up with PCP. Patient is active with Palliative Care. Per follow-up phone call patient was taking her prescribed medications. Patient returned 11/09/21 for increased dyspnea and cough. Patient tested positive for covid and was needing 15L in the ED. Patient is currently on 4lpm. Will monitor for increased home oxygen needs. Encourage follow-up with palliative care and pulmonolgosit.
[2021-11-10] MEDS: Atorvastatin Calcium 20 MG Tablet PO (20:59)
[2021-11-11] VITALS (10 sets, daily range): BP systolic 107–125; BP diastolic 51–82; PULSE 49–70; RESP 16–22; TEMP 36.2–36.6; O2SAT 86–100
[2021-11-11] MEDS: Ipratropium/Albuterol Sulfate 3 ML AMPUL.NEB INHALATION (07:29)
--- NOTE | 2021-11-11 07:35 | PN.HOSP_ITS ---
Subjective Subjective Patient seen had a relatively uneventful night. Patient back to her baseline with 4 L of oxygen at rest. Plan is to assess for further oxygen demand with activity prior to discharge Objective Data Objective Data Vital Signs: Vital Signs Temp Pulse Resp BP Pulse Ox 97.2 F L 65 18 110/51 L 100 11/11/21 02:21 11/11/21 07:29 11/11/21 07:29 11/11/21 02:21 11/11/21 07:29 Oxygen Flow Rate (L/min) 4 Oxygen Delivery Method Nasal Cannula Weight: 37.81 kg Body Mass Index (BMI) 15.2 Intake & Output: Intake and Output for Last 24 Hours 11/09/21 11/10/21 11/11/21 23:59 23:59 23:59 Intake Total 1000 / 1000 250 / 250 Balance 1000 / 1000 250 / 250 Lab / Micro Data Result Diagrams: 11/10/21 02:05 11/10/21 02:05 Micro: Microbiology 11/09/21 23:24 Urine, Random Legionella Antigen - Final 11/09/21 23:24 Urine, Random Streptococcus pneumoniae Antigen (M - Final 11/09/21 22:35 Nasal Secretion SARS-CoV-2 Antigen (Rapid) - Final SARS-CoV-2 (COVID 19) Radiography Diagnostic Testing: Radiology Impression Venous Doppler Study 11/10/21 02:50 Interpretation Summary No evidence for acute deep venous thrombosis bilateral lower extremities with patent and compressible bilateral great saphenous veins. Abbreviated COVID-19 protocol utilized Ordering Physician: Tata Leavitt Referring Physician: Matt Peace Performed By: Shira Fuentes RVT Physical Exam Narrative GENERAL: Frail looking HEENT: Atraumatic; EYES; Anicteric, Normal Conjunctiva NECK; supple, normal thyroid, RESPIRATORY: Diminished to auscultation CARDIOVASCULAR: Regular S1 S2, GI: soft, normoactive bowel sounds, : No Renal angle tenderness; EXTREMITIES: No edema, no clubbing, MUSCULOSKELETAL: no muscle waisting NEURO: Awake; no lateralizing signs. SKIN: No Rash PSYCH; Flat affect Assessment & Plan Assessment/Plan (1) Pneumonia due to 2019-nCoV: (2) Acute on chronic respiratory failure with hypoxia: PLAN: The patient is a 76 with underlying history significant for COPD who presented with increasing shortness of breath. Patient tested positive for COVID admitted to regular nursing floor for further management. Of note patient is not vaccinated against COVID-19 1. Acute hypoxic respiratory failure ? Superimposed on chronic hypoxic respiratory failure secondary to COPD. Imaging studies obtained demonstrated right lower lobe reticular opacities suggesting tree-in-bud opacities. Patient tested positive for COVID admitted to regular nursing floor started on Decadron. Patient was deemed not a candidate for remdesivir due to low creatinine clearance. Also placed on supplemental oxygen titrated to keep saturation greater than 90 -11/11/2021;Patient seen had a relatively uneventful night. Patient back to her baseline with 4 L of oxygen at rest. Plan is to assess for further oxygen demand with activity prior to discharge 2. Chronic hypoxic respiratory failure ? Secondary to COPD patient is on baseline oxygen 3. Hypertension - Blood pressure controlled, home medications continued with dose adjustment as needed 4. Dyslipidemia ? Patient is on atorvastatin 20 mg p.o. nightly did continue 5. Tobacco dependence - Counseled on cessation, offered nicotine patch for tobacco cravings 6. Severe protein calorie malnutrition ? Secondary to patient underlying chronic disease as well as COVID 19. This is evidenced by patient decrease BMI muscle loss and decreased oral intake. Consult placed to dietitian for dietary recommendations 7. Anemia - Secondary to chronic disorder monitoring H&H and transfuse if patient becomes symptomatic or hemoglobin falls below 7 8. DVT prophylaxis ? [place] Lovenox Charges/Coding Visit Charges Inpatient E&M: 97142 Subs Hosp L2
[2021-11-11] MEDS: dexAMETHasone 4 MG/ML Vial 6 MG IV (09:08)
[2021-11-11] MEDS: Multivitamins,Therapeutic Tablet 1 TABLET PO (09:08)
[2021-11-11] MEDS: Carvedilol 3.125 MG TABLET PO (09:08)
[2021-11-11] MEDS: Aspirin 81 MG TAB.CHEW PO (09:08)
[2021-11-11] MEDS: Enoxaparin 30 MG/0.3 ML Syringe SC (09:09)
[2021-11-11] MEDS: guaiFENesin 1,200 MG Tablet 1200 MG PO (09:09)
--- NOTE | 2021-11-11 11:04 | DS.PCM_ITS ---
Providers Date of Admission: 11/09/21 Primary Care Physician: Dr. Matt Peace MD Reason For Visit: COVID PNA, RESP FAILURE Diagnosis Discharge Diagnosis (1) Pneumonia due to 2019-nCoV: Status: Acute Code(s): U07.1 - COVID-19; J12.82 - Pneumonia due to coronavirus disease 2019 (2) Acute on chronic respiratory failure with hypoxia: Status: Chronic Code(s): J96.21 - Acute and chronic respiratory failure with hypoxia Medications at Discharge Home Medications albuterol sulfate [Ventolin HFA] 1 - 2 puff INHALATION Q4H PRN 11/26/17 gabapentin [Neurontin] 600 mg PO QHS 11/26/17 albuterol sulfate 2.5 mg INHALATION Q2H PRN PRN #1 box 11/28/17 Trelegy Ellipta 1 puff IH DAILY 10/16/18 atorvastatin 20 mg PO QHS 06/27/20 carvedilol 3.125 mg PO BID 06/27/20 pediatric multivitamin 1 each PO DAILY 02/14/21 hydroxyzine HCl 25 mg PO QHS 06/29/21 Ensure Enlive 120 ml PO 4X/DAY 07/25/21 prednisone 10 mg PO DAILY #40 tab 11/03/21 dexamethasone [Decadron] 6 mg PO DAILY #7 tab 11/11/21 doxycycline hyclate 100 mg PO BID #14 cap 11/11/21 pantoprazole [Protonix] 40 mg PO DAILY #30 tab 11/11/21 rivaroxaban [Xarelto] 10 mg PO DAILY #30 tab 11/11/21 Hospital Course Summary of Care Provided Minutes Spent on Discharge: 35 Hospital Course: The patient is a 76 with underlying history significant for COPD who presented with increasing shortness of breath. Patient tested positive for COVID admitted to regular nursing floor for further management. Of note patient is not vaccinated against COVID-19 1. Acute hypoxic respiratory failure ? Superimposed on chronic hypoxic respiratory failure secondary to COPD. Imaging studies obtained demonstrated right lower lobe reticular opacities suggesting tree-in-bud opacities. Patient tested positive for COVID admitted to regular nursing floor started on Decadron. Patient was deemed not a candidate for remdesivir due to low creatinine clearance. Also placed on supplemental oxygen titrated to keep saturation greater than 90 -11/11/2021;Patient seen had a relatively uneventful night. Patient back to her baseline with 4 L of oxygen at rest. Plan is to assess for further oxygen demand with activity prior to discharge -Patient was discharged on Decadron doxycycline as well as Protonix. Plan was for patient to be discharged on Xarelto given elevated D-dimer however given his significant anemia and the fact that patient being on Decadron the prescription for Xarelto was discontinued. 2. Chronic hypoxic respiratory failure ? Secondary to COPD patient is on baseline oxygen 3. Hypertension - Blood pressure controlled, home medications continued with dose adjustment as needed 4. Dyslipidemia ? Patient is on atorvastatin 20 mg p.o. nightly did continue 5. Tobacco dependence - Counseled on cessation, offered nicotine patch for tobacco cravings 6. Severe protein calorie malnutrition ? Secondary to patient underlying chronic disease as well as COVID 19. This is evidenced by patient decrease BMI muscle loss and decreased oral intake. Consu lt placed to dietitian for dietary recommendations 7. Anemia - Secondary to chronic disorder monitoring H&H and transfuse if patient becomes symptomatic or hemoglobin falls below 7 8. DVT prophylaxis ? [place] Lovenox Physical Exam Narrative GENERAL: Frail looking HEENT: Atraumatic; EYES; Anicteric, Normal Conjunctiva NECK; supple, normal thyroid, RESPIRATORY: Diminished to auscultation CARDIOVASCULAR: Regular S1 S2, GI: soft, normoactive bowel sounds, : No Renal angle tenderness; EXTREMITIES: No edema, no clubbing, MUSCULOSKELETAL: no muscle waisting NEURO: Awake; no lateralizing signs. SKIN: No Rash PSYCH; Flat affect Weight / BMI Weight Weight: 37.81 kg Body Mass Index (BMI) 15.2 ABG / Lab / Microbiology Data Result Diagrams: 11/10/21 02:05 11/10/21 02:05 Microbiology: Microbiology 11/09/21 23:24 Urine, Random Legionella Antigen - Final 11/09/21 23:24 Urine, Random Streptococcus pneumoniae Antigen (M - Final 11/09/21 22:35 Nasal Secretion SARS-CoV-2 Antigen (Rapid) - Final SARS-CoV-2 (COVID 19) Radiography Diagnostic Testing: Radiology Impression Venous Doppler Study 11/10/21 02:50 Interpretation Summary No evidence for acute deep venous thrombosis bilateral lower extremities with patent and compressible bilateral great saphenous veins. Abbreviated COVID-19 protocol utilized Ordering Physician: Tata Leavitt Referring Physician: Matt Peace Performed By: Shira Fuentes RVT D/C Instructions Discharge Diet: No restrictions Discharge Activity: Return to Normal Activity Call your doctor if you observe: Fever of 101 or Higher, Shortness of breath, Fainting spells and Chest pain Meaningful Use Info Meaningful Use Diagnoses (Choose all that apply): None applicable Discharge Plan Admission Admit Date/Time: 11/09/21 23:56 Attending Provider: Gonzalez Arias Primary Care Provider: Matt Peace Discharge Orders/Prescriptions Prescriptions: New dexamethasone [Decadron] 6 mg tablet 6 mg PO DAILY Qty: 7 RF: 0 doxycycline hyclate 100 mg capsule 100 mg PO BID Qty: 14 RF: 0 pantoprazole [Protonix] 40 mg tablet,delayed release (DR/EC) 40 mg PO DAILY Qty: 30 RF: 0 Xarelto 10 mg tablet 10 mg PO DAILY Qty: 30 RF: 0 Continued gabapentin [Neurontin] 300 MG capsule 600 mg PO QHS RF: 0 albuterol sulfate [Ventolin HFA] 108 HFA aerosol inhaler 1 - 2 puff inhalation Q4H PRN (Reason: Sob &/Or Wheezing) RF: 0 albuterol sulfate 2.5 MG/3 ML solution for nebulization 2.5 mg INHALATION Q2H PRN PRN (Reason: SOB &/OR WHEEZING) Qty: 1 RF: 0 Trelegy Ellipta 1 EACH blister with device 1 puff IH DAILY RF: 0 atorvastatin 20 MG tablet 20 mg PO QHS RF: 0 carvedilol 3.125 MG tablet 3.125 mg PO BID RF: 0 pediatric multivitamin 1 EACH tablet,chewable 1 each PO DAILY RF: 0 hydroxyzine HCl 25 mg tablet 25 mg PO QHS RF: 0 Ensure Enlive 120 ML liquid 120 ml PO 4X/DAY RF: 0 prednisone 10 mg tablet 10 mg PO DAILY Qty: 40 RF: 0 Discontinued aspirin 81 MG tablet,chewable 81 mg PO DAILY RF: 0 Referrals / Follow Up: Matt Peace MD [Primary Care Provider] - Within 2 Weeks Disposition Disposition (needs filled in before D/C Order can be placed): Home, Self Care Charges/Coding Visit Charges Inpatient E&M: 02689 Disch Hosp
--- NOTE | 2021-11-11 12:08 | CASEMGMT ---
Addendum entered by Vero Ellison 11/11/21 13:34: Pt is not going to be dc'd on anticoagulants per nurse. Original Note: Pt did not need increased O2 from home. Pt to dc today.
--- NOTE | 2021-11-12 17:20 | CM.ED ---
ASPEN Note SW received call from woman identifying herself as the daughter in law of Lisa. She said that her , patient's son is the POA. She said that no one has updated her about patient and her prognosis. She said that patient's other son, who is the moisture meter operator, Kavon, is in an emotional state currently and the updates he provides are limited. The daughter in law said that patient was referred to pallative/hospice and that the patient needed hospice. The daughter in law said that patient had declined hospice in the past but is in agreement with hospice now. ASPEN said that the son will need to call pallative care/hospice. The daughter in law said so your not going to tell me anything?. 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 ASPEN reviewed chart. Patient's son Kavon is the primary POA. ASPEN called Benitez Bhandari, patient's son in [place] and spoke to him. Advised him that he is the secondary POA so the primary will be updated and the family will then disperse the information. If Benitez wants to be primary he then needs to change POA. Benitez said well, I don't want to go against my mom's wishes. Benitez said that his mom probably wouldn't tell him if she is dying and her mom is driving my brother Mgv. Benitez said that his mom wants Kavon to take care of all of her needs. Benitez said that Kavon is concerned about the perceived horrible and painful she will have as a result of the COPD. ASPEN encouraged Benitez to speak to [facility] for education about what services and pain management they provide. ASPEN gave Benitez the contact number for [facility] and encouraged him to call the manager social's on Sunday at [facility]. Aspen also explained the difference between palliative and hospice care. No other issues or needs voiced. Plan: Community resources provided Ivonne SANTOS
== END 2021-11-11 15:06 | disposition home or self-care (01) | DRG 177 ==
LOC: ED 11-10 00:08 → MS3 11-10 00:39
PROVIDERS: Admitting Provider Family Medicine; Emergency Provider Emergency Medicine; PCP Family Medicine; Visit Provider Internal Medicine
DX: U07.1 COVID-19 (principal); E43 Unspecified severe protein-calorie malnutrition; J96.21 Acute and chronic respiratory failure with hypoxia; J12.82 Pneumonia due to coronavirus disease 2019; J44.0 Chronic obstructive pulmonary disease with (acute) lower respiratory infection; Z68.1 Body mass index [BMI] 19.9 or less, adult; I10 Essential (primary) hypertension; E78.5 Hyperlipidemia, unspecified; I25.10 Atherosclerotic heart disease of native coronary artery without angina pectoris; D64.9 Anemia, unspecified; F17.210 Nicotine dependence, cigarettes, uncomplicated; Z79.82 Long term (current) use of aspirin; Z66 Do not resuscitate; Z23 Encounter for immunization
CPT/HCPCS: 36415; 71045; 80048; 80053; 80076; 81001; 82728; 83615; 83880; 84145; 84484; 85025; 85379; 86140; 87426; 87449; 93005; 93970; 94640; 94762; 97162; 97166; 97530; 97535; 97802; 99285; G0008; J7030; 90686; A4216